=== PATIENT | male | born 1990 | race Caucasian/White ===

== ENCOUNTER 2020-07-22 08:55 | Emergency (ER) | payer OTHER, MEDICAID, SELFPAY ==
[2020-07-22] VITALS (8 sets, daily range): BP systolic 127–166; BP diastolic 74–98; PULSE 63–79; RESP 16; TEMP 37.4; O2SAT 96–99; BMI 32.5
--- NOTE | 2020-07-22 09:42 | ED.MALEGU ---
HPI - Male Genitourinary General Chief complaint: Urogenital-Male Stated complaint: stomach pain and testicular pain Time Seen by Provider: 07/22/20 09:06 Source: patient Mode of arrival: Ambulatory Limitations: no limitations History of Present Illness HPI Narrative: This is a 30-year-old male comes emergency department with complaint of testicular pain for the past 10 days. Patient states he has had some discomfort up into his lower abdomen in the suprapubic region. He states that pain he appreciates more on the left greater than the right. It has been intermittent but slowly increasing. He has not appreciated any significant swelling. He has had some pain when he urinates in the abdomen but does not appreciate any penile pain at the urethral opening. He is not appreciate any discharge, drainage or other rashes or skin changes. Patient has not had any new flank or back pain. Patient has noted recently with intercourse 3 days ago that the seminal fluid was a different consistency he did not appreciate any blood. He also states he just felt differently afterwards but does not really describe it as painful. Patient states he did have about 45 minutes and nausea that day several hours later. He states he is in a monogamous relationship with no suspicions for STI at this time. He has not had any additional nausea or emesis. He has not had any fevers or chills. He has chronic constipation. He has not noticed any bright red blood or melena. He has been having bowel movements recently. Patient states he has a history of ankylosing spondylitis. He is not on any regular medications. He states he has had tonsil and adenoids but no other prior surgeries. He has had possible epididymitis in the past he states he had serial ultrasounds, he did not think he took antibiotics but he states he was in his teens and is unsure of the exact diagnosis. Patient states that there was no interventions required. Patient denies any allergies to medications. Related Data Previous Rx's Medication Instructions Recorded doxycycline hyclate 100 mg PO BID #28 tab 07/22/20 Allergies Allergy/AdvReac Type Severity Reaction Status Date / Time No Known Drug Allergies Allergy Verified 07/22/20 09:02 Review of Systems Review of Systems ROS Unobtainable: All systems reviewed & are unremarkable except as noted in HPI and below Patient History Social History Smoking Status: Never smoker Smoking Status: Never smoker alcohol intake frequency: a few times a week Alcohol type: beer Substance Use Type: marijuana Exam Narrative Exam Narrative: GENERAL: Alert and oriented x three, well-nourished male in mild distress. HEENT: Head normocephalic, atraumatic, EOMI, pupils reactive, face symmetric, moist mucous membranes NECK: Supple, full range of motion CARDIOVASCULAR: Regular rate and rhythm without murmurs, rubs or gallops. RESPIRATORY: Breath sounds equal bilaterally, no wheezes rales or rhonchi. ABDOMEN: Soft, nontender. Normoactive bowel sounds all 4 quadrants. No guarding or rebound, rigidity, no mass : No CVA tenderness. Male: normal external examination, no penile discharge or lesions, testicles non-tender, cremasteric reflex intact, no inguinal hernias noted. EXTREMITIES: Normal range of motion, no clubbing or edema. Neurovascularly intact NEUROLOGICAL: Cranial nerves II through XII grossly intact. Moving all extremities SKIN: Warm, dry, no petechiae, no rashes or lesions. Initial Vital Signs Initial Vital Signs: Vital Signs Temperature 99.3 F 07/22/20 08:56 Pulse Rate 78 07/22/20 08:56 Respiratory Rate 16 07/22/20 08:56 Blood Pressure 166/98 H 07/22/20 08:56 Pulse Oximetry 96 07/22/20 08:56 Course Orders Ordered: Discontinued Medications Ceftriaxone Sodium (Ceftriaxone 1,000 Mg Vial) 500 mg IM NOW ONE Stop: 07/22/20 12:12 Last Admin: 07/22/20 12:38 Dose: 500 mg Documented by: YULISA Ibuprofen (Ibuprofen 400 Mg Tablet) 800 mg PO NOW ONE Stop: 07/22/20 10:17 Last Admin: 07/22/20 10:20 Dose: 800 mg Documented by: DAMON Lidocaine HCl (Lidocaine 1% 20 Ml) 2.1 ml INJ NOW ONE Stop: 07/22/20 12:12 Last Admin: 07/22/20 12:42 Dose: 2.1 ml Documented by: YULISA Vital Signs Vital signs: Vital Signs - 8 hr 07/22/20 11:44 07/22/20 11:45 07/22/20 13:10 Pulse Rate 67 63 79 Respiratory Rate 16 Blood Pressure 129/84 133/83 Pulse Oximetry 99 99 97 MDM - Male Genitourinary Lab Data Attestation: I reviewed the patient's lab results. Labs: Lab Results 07/22/20 Range/Units 07:47 Urine Color Yellow Urine Appearance Clear Urine pH 7.0 (4.5-8.0) Ur Specific [place] 1.010 (1.000-1.035) Urine Protein Negative (Negative) Urine Glucose (UA) Negative (Negative) g/dL Urine Ketones Negative (NEGATIVE) Urine Occult Blood Negative (Negative) Urine Nitrate Negative (Negative) Urine Bilirubin Negative (NEGATIVE) Urine Urobilinogen 0.2 (0.2) E.U./dL Ur Leukocyte Esterase Negative (NEGATIVE) Urine RBC None seen (0-5/HPF) Urine WBC None seen (0-5/HPF) Ur Squamous Epith Cells None seen (0-5/HPF) Urine Bacteria None seen (None) Ur Culture Indicated? Cult not indicated Urine Dip Bedside Urine Glucose Negative Bedside Urine Bilirubin - Negative Bedside Urine Ketone - Negative Urine Specific [place] 1.015 Bedside Urine Occult Blood - Negative Bedside Urine pH 6.0 Bedside Urine Protein - Negative Bedside Urine Urobilinogen - Negative Bedside Urine Nitrite - Negative Bedside Urine Leukocytes - Negative Esterase Imaging Data scrotum US: Radiologist's Impression: [address] [id number] ReportSigned Patient: Tyron JenningsMR#: [id number]: 1990Acct:[id number]/Sex: 30 / MDate of Service: 07/22/20Loc: EDAccession Number: [id number] Procedure: US scrotum Ordering Provider: Amaris Lea D.O. PROCEDURE: US SCROTUM INDICATIONS: INCREASING TESTICULAR PAIN RIGHT > LEFT TECHNIQUE: Real-time scanning was performed of the scrotum and testicles, with image documentation. Color and pulse Doppler interrogation was performed of both testicles. COMPARISON: None. FINDINGS: Right: Testicle is normal in size at 2.3 x 3.4 x 4.7 cm, and homogenous in echotexture. Epididymis is normal in overall size and morphology and is slightly heterogeneous.. No hydrocele or varicoceles. Overlying scrotal skin is normal in thickness. Left: Testicle is normal in size at 2.1 x 3.5 x 4.9 cm, and homogeneous in echotexture. Epididymis is normal in overall size and morphology, and is slightly heterogeneous. No hydrocele or varicoceles. Overlying scrotal skin is normal in thickness. There is a finding of several left epididymal head cysts, subcentimeter. Doppler: Color and pulse Doppler demonstrate minimally elevated but symmetric arterial flow in both testicles. IMPRESSION: Possible slight epididymal orchitis given slight elevated blood flow involving the testicles bilaterally and mild heterogeneity of the epididymis bilaterally. No testicular mass is found. Dictated by: Andres Suarez M.D. on 07/22/2020 at 11:36 Approved by: Andres Suarez M.D. on 07/22/2020 at 11:39 [facility] Narrative Medical decision making narrative: This is a 30-year-old male comes emergency department with complaint of bilateral testicular pain but left greater than right for approximately 10 days. Patient's urinalysis is negative. Ultrasound is suspicious for epididymitis/orchitis. Patient states he is monogamous. We discussed his urine was sent for GC testing but my suspicion is lower. He was treated with Rocephin and doxycycline here, patient was encouraged to follow up with his results as if they were positive he would not be contacted because he had the appropriate antibiotics but that his sexual partners would need to be treated. Patient was given referral to Urology as he has had at least 1 prior episode of similar symptoms in the past. Return precautions discussed. All questions were answered. Discharge Plan Departure Patient Disposition: Home Clinical Impression: Epididymitis Instructions: DI for Epididymitis Activity Restrictions/Additional Instructions: Follow up with your physician for recheck. If you do not have one a urology referral is included. Take antibiotics until they are completely gone. You have one additional urine lab pending, this takes several days/up to a week to result. You should follow up for these results. You may follow up with her physician or call for them. You have been treated today but if positive any additional partners would need to be treated. You may continue to take Tylenol up to a 1000 mg every 8 hours and or ibuprofen up to 800 mg every 8 hours as needed for pain. Please return for fevers, increasing abdominal, scrotal or back or flank pain, persistent vomiting, new redness, swelling or skin changes that are suspicious for infection, lightheadedness or passing out, persistent vomiting, difficulty with urination or other new or concerning symptoms. Prescriptions: New doxycycline hyclate 100 mg tablet 100 mg PO BID Qty: 28 RF: 0 Referrals: Ravindra Jacobson MD [Physician] - Stand Alone Forms: Work Release Note
--- NOTE | 2020-07-22 10:16 | DI.US.S_ITS ---
PROCEDURE: US SCROTUM INDICATIONS: INCREASING TESTICULAR PAIN RIGHT > LEFT TECHNIQUE: Real-time scanning was performed of the scrotum and testicles, with image documentation. Color and pulse Doppler interrogation was performed of both testicles. COMPARISON: None. FINDINGS: Right: Testicle is normal in size at 2.3 x 3.4 x 4.7 cm, and homogenous in echotexture. Epididymis is normal in overall size and morphology and is slightly heterogeneous.. No hydrocele or varicoceles. Overlying scrotal skin is normal in thickness. Left: Testicle is normal in size at 2.1 x 3.5 x 4.9 cm, and homogeneous in echotexture. Epididymis is normal in overall size and morphology, and is slightly heterogeneous. No hydrocele or varicoceles. Overlying scrotal skin is normal in thickness. There is a finding of several left epididymal head cysts, subcentimeter. Doppler: Color and pulse Doppler demonstrate minimally elevated but symmetric arterial flow in both testicles. IMPRESSION: Possible slight epididymal orchitis given slight elevated blood flow involving the testicles bilaterally and mild heterogeneity of the epididymis bilaterally. No testicular mass is found. Dictated by: Andres Suarez M.D. on 07/22/2020 at 11:36 Approved by: Andres Suarez M.D. on 07/22/2020 at 11:39
[2020-07-22] MEDS: IBUPROFEN 400 MG TABLET 800 MG PO (10:20)
[2020-07-22 10:27] LABS: Bacteria Urine None Seen; RBC Urine None Seen (0-5/HPF); WBC Urine None Seen (0-5/HPF)
[2020-07-22 10:28] LABS: Appearance Urine UA CLEAR; Bilirubin Urine UA NEGATIVE (NEGATIVE); Color Urine UA YELLOW; Glucose Urine UA NEGATIVE (Negative); Ketones Urine UA NEGATIVE (NEGATIVE); Leukocyte Esterase Urine UA NEGATIVE (NEGATIVE); Nitrite Urine UA NEGATIVE (Negative); Occult Blood Urine UA NEGATIVE (Negative); Protein Urine UA NEGATIVE (Negative); Urobilinogen Urine UA 0.2 E.U./dL (0.2)
[2020-07-22 10:48] LABS: Squamous Epithelial Cell Urine None Seen (0-5/HPF)
[2020-07-22 10:49] LABS: Culture Indicated Urine Cult Not Indicated
[2020-07-22] MEDS: cefTRIAXone 1,000 MG VIAL 500 MG IM (12:38)
[2020-07-22] MEDS: LIDOCAINE 1% 20 ML 2.1 ML INJ (12:42)
[2020-07-23 22:02] LABS: Chlamydia trachomatis NAA Negative (Negative); Neisseria gonorrhoeae NAA Negative (Negative)
== END 2020-07-22 13:10 | disposition home or self-care (01) ==
PROVIDERS: Emergency Provider Emergency Medicine
DX: N45.1 Epididymitis (principal)
CPT/HCPCS: 76870; 81001; 81003; 87491; 87591; 96372; 99284; J0696

== ENCOUNTER → 2021-06-04 14:56 | Outpatient (CLI) | payer OTHER, MEDICAID, SELFPAY ==
[2021-06-04 15:30] LABS: COVID19 -Nasal RAPID Negative (Negative)
== END ==
PROVIDERS: PCP Family Medicine; Visit Provider Nurse Practitioner Family
DX: Z20.822 Contact with and (suspected) exposure to COVID-19 (principal)
CPT/HCPCS: 87635

== ENCOUNTER 2021-07-21 14:30 | Outpatient (RCR) | payer OTHER, MEDICAID, SELFPAY ==
--- NOTE | 2020-10-06 11:59 | PT.OIE ---
Current Diagnoses Impingement syndrome of right shoulder (10/06/20) Strain of muscle(s) and tendon(s) of the rotator cuff of right shoulder, subsequent encounter (10/06/20) Visit Care Team Role Provider Type Ray Stover DO Primary Care Provider Non-Staff Specialty: Medical Address: [address], [address] Fax: Email: Tylor Aguayo MD Attending Provider Non-Staff Referring Provider Specialty: Physical Medicine and Rehab Address: [facility] [place], [address] Email: Physical Therapy Initial Evaluation PT-OP-A Visit Information Start: 10/06/20 07:42 Freq: Status: Active Protocol: Document 10/06/20 09:00 AMB (Rec: 10/06/20 15:59 AMB [email or web address]) Out-Patient Physical Therapy Visit Information Visit Information Visit Type Initial Evaluation Visit Start Time 09:00 Visit Stop Time 09:45 Total Visit Minutes 45 Visit Number 1 PT-OP-B Current Condition Start: 10/06/20 07:42 Freq: Status: Active Protocol: Document 10/06/20 09:00 AMB (Rec: 10/06/20 09:15 AMB [id number]) Current Condition History of Current Condition Onset Date 08/15/20 Current Complaints R shoulder pain History of Current Condition 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 Had a MRI at [facility], Per pt report showed bicep tendon tear and labrum tear per pt report. Considering surgery. Does have ankylosing spondylitis. Not currently working because has a 10# lifting restriction and they don' t have work that can accomodate that. R shoulder stiffness currently. Difficulty sleeping. 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 Treatment Goals Patient/Caregiver Goals Reduce R shoulder pain returnt to work. Prior Functional Status Baseline Function- ADL's Independent Baseline Function- Mobility Independent Current Functional Impairments (Reported) Functional Limitations- ADL's Difficult lifting arm, lifting objects even of light weight (groceries) Personal Factors Other Personal Factors That May Effect Ankylosing spondylitis Therapy/Recovery PT-OP-C Subjective Start: 10/06/20 07:42 Freq: Status: Active Protocol: Document 10/06/20 09:00 AMB (Rec: 10/07/20 08:58 AMB [email or web address]) Patient Questionnaires Quick Dash- Upper Extremity Quick Dash UE Score 27 Quick Dash UE Impairment 20 to 39% Impaired (Score 20- 39) OP-PT Pain Assessment Comments Pain Comments 6/10 pain anterior and posterior shoulder PT-OP-F Manual Assessment Start: 10/06/20 07:42 Freq: Status: Active Protocol: Document 10/06/20 09:00 AMB (Rec: 10/07/20 08:58 AMB [email or web address]) Manual Assessments Other Manual Assessments Other Manual Assessments Tenderness at acromion, attachment of long head of biceps, and throughout scapular muscles and upper traps. PT-OP-J Posture/Palpation/Skin Start: 10/06/20 07:42 Freq: Status: Active Protocol: Document 10/06/20 09:00 AMB (Rec: 10/07/20 08:58 AMB [email or web address]) Posture Evaluation Comments Posture Comments Flat lumbar and thoracic spine PT-OP-K Range of Motion Start: 10/06/20 07:42 Freq: Status: Active Protocol: Document 10/06/20 09:00 AMB (Rec: 10/07/20 08:58 AMB [email or web address]) Shoulder Goniometric Range of Motion Shoulder Left Active Testing Position Sitting Flexion 165 Abduction 180 Internal Rotation Behind Back (text) T8 Comments T3 external rotation behind back Right Active Testing Position Sitting Flexion 135 Abduction 165 Internal Rotation Behind Back (text) L5 Comments C7 external rotation behind back PT-OP-L Special Tests Start: 10/06/20 07:42 Freq: Status: Active Protocol: Document 10/06/20 09:00 AMB (Rec: 10/07/20 08:58 AMB [email or web address]) Special Tests Shoulder Special Tests Neer Impingement Test Results - [place] Codey Impingement Test Results + PT-OP-M Strength Start: 10/06/20 07:42 Freq: Status: Active Protocol: Document 10/06/20 09:00 AMB (Rec: 10/07/20 08:58 AMB [email or web address]) Shoulder Strength Shoulder Manual Muscle Testing Left Flexion 5 Normal Abduction (C5) 5 Normal External Rotation 4+ Good+ Internal Rotation 4+ Good+ Right Flexion 4- Good- Abduction (C5) 4- Good- External Rotation 3+ Fair+ Internal Rotation 3+ Fair+ Elbow/Forearm Strength Elbow and Forearm Manual Muscle Testing Right Flexion (C6) 4 Good Comments pain with resisted elbow flexion PT-OP-Q Treatments Start: 10/06/20 07:42 Freq: Status: Active Protocol: Document 10/06/20 09:00 AMB (Rec: 10/08/20 11:58 AMB [email or web address]) Therapeutic Exercises Standing Exercises 1 Standing Exercise Name pendulum Comments with 3 pound weight PT-OP-T Assessment and Plan Start: 10/06/20 07:42 Freq: Status: Active Protocol: Document 10/06/20 09:00 AMB (Rec: 10/08/20 11:58 AMB [email or web address]) Physical Therapy Assessment Rehab Potential Rehabilitation Potential Good Evaluation Complexity Number of Personal Factors/Comorbidities 1-2 Number of Body Systems Impaired 4 or More Clinical Presentation at Evaluation Evolving Impairments Impairments Activity Tolerance,Functional Activities,Pain,ROM,Strength Goals Three Impairment Pain Short Term Goal (STG) Flynn will improve his shoulder strength and ROM so that he can wash his back without shoulder pain. STG Duration 4 weeks Longterm Goal (LTG) Flynn will lift his arm over head without pain so that he can return to work without shoulder pain. LTG Duration 8 weeks Two Impairment Strength Short Term Goal (STG) Flynn will improve his R shoulder strength to 4/5 in all planes. STG Duration 4 weeks People Greeter Goal (LTG) Flynn will lift 10# to shoulder height without an increase in shoulder pain. LTG Duration 6 weeks One Impairment ROM Short Term Goal (STG) Flynn will improve his shoulder flexion (active) to 160 degrees. STG Duration 4 weeks Assessment Summary Assessment Flynn attends physical therapy with a current lifting restriction of 10# per his report. He is not working as his employer does not have light duty and is considering surgery for his right shoulder pain. He does have restricted ROM into flexion, ER, and IR and weakness especially with ER and abduction. 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 Physical Therapy Plan Frequency and Duration Frequency of Treatment 2x/Week Duration of Treatment 6 weeks Plan of Care Start Date 10/06/20 Plan of Care End Date 08/02/21 Therapeutic Interventions Therapeutic Interventions Home Exercise Program,Joint Mobilizations,Manual Therapy, Neuromuscular Re-education, Self-Care/Home Management, Therapeutic Activities, Therapeutic Exercises Modalities Cold Pack/Ice Massage,Electric Stimulation,Hot Packs Next Visit Focus/Plan Next Note Type Treatment Note Next Visit Plan Begin HEP for gentle RTC/ biceps strengthening, manual therapy to improve ROM as needed
--- NOTE | 2020-10-06 11:59 | PT.OPPOC ---
Physical, Occupational & Speech Therapy At [facility] Current Diagnoses Impingement syndrome of right shoulder (10/06/20) Strain of muscle(s) and tendon(s) of the rotator cuff of right shoulder, subsequent encounter (10/06/20) Visit Care Team Role Provider Type Ray Stover DO Primary Care Provider Non-Staff Specialty: Medical Address: [address] [place] [address], [place], [address] Fax: Email: Tylor Aguayo MD Attending Provider Non-Staff Referring Provider Specialty: Physical Medicine and Rehab Address: [facility] [address] [facility], [place], [address] Email: Plan Of Care PT-OP-T Assessment and Plan Start: 10/06/20 07:42 Freq: Status: Active Protocol: Document 10/06/20 09:00 AMB (Rec: 10/08/20 11:58 AMB [email or web address]) Physical Therapy Assessment Rehab Potential Rehabilitation Potential Good Evaluation Complexity Number of Personal Factors/Comorbidities 1-2 Number of Body Systems Impaired 4 or More Clinical Presentation at Evaluation Evolving Impairments Impairments Activity Tolerance,Functional Activities,Pain,ROM,Strength Goals Three Impairment Pain Short Term Goal (STG) Flynn will improve his shoulder strength and ROM so that he can wash his back without shoulder pain. STG Duration 4 weeks Professional Poker Player Goal (LTG) Flynn will lift his arm over head without pain so that he can return to work without shoulder pain. LTG Duration 8 weeks Two Impairment Strength Short Term Goal (STG) Flynn will improve his R shoulder strength to 4/5 in all planes. STG Duration 4 weeks Professional Poker Player Goal (LTG) Flynn will lift 10# to shoulder height without an increase in shoulder pain. LTG Duration 6 weeks One Impairment ROM Short Term Goal (STG) Flynn will improve his shoulder flexion (active) to 160 degrees. STG Duration 4 weeks Assessment Summary Assessment Flynn attends physical therapy with a current lifting restriction of 10# per his report. He is not working as his employer does not have light duty and is considering surgery for his right shoulder pain. He does have restricted ROM into flexion, ER, and IR and weakness especially with ER and abduction. 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 Physical Therapy Plan Frequency and Duration Frequency of Treatment 2x/Week Duration of Treatment 6 weeks Plan of Care Start Date 10/06/20 Plan of Care End Date 11/17/20 Therapeutic Interventions Therapeutic Interventions Home Exercise Program,Joint Mobilizations,Manual Therapy, Neuromuscular Re-education, Self-Care/Home Management, Therapeutic Activities, Therapeutic Exercises Modalities Cold Pack/Ice Massage,Electric Stimulation,Hot Packs Next Visit Focus/Plan Next Note Type Treatment Note Next Visit Plan Begin HEP for gentle RTC/ biceps strengthening, manual therapy to improve ROM as needed Plan of Care Dates Plan of Care Start Date 10/06/20 Plan of Care End Date 11/17/20 Electronically Signed by: Jaz Claire, PT 10/08/20 [id number] Please Sign and Return: I have reviewed this Plan of Care and certify that the skilled therapy services above are required to meet the patient?s needs. Physician Signature Date Printed Name and Credentials Clinical Instructor Signature Printed Name and Credentials
--- NOTE | 2020-10-09 16:18 | PT.OTN ---
Current Diagnoses Impingement syndrome of right shoulder (10/09/20) Strain of muscle(s) and tendon(s) of the rotator cuff of right shoulder, subsequent encounter (10/09/20) Physical Therapy Treatment Note PT-OP-A Visit Information Start: 10/06/20 07:42 Freq: Status: Active Protocol: Document 10/09/20 12:45 AMB (Rec: 10/09/20 13:24 AMB [id number]) Out-Patient Physical Therapy Visit Information Visit Information Visit Type Treatment Note Visit Start Time 12:45 Visit Stop Time 13:30 Total Visit Minutes 45 Visit Number 2 PT-OP-B Current Condition Start: 10/06/20 07:42 Freq: Status: Active Protocol: Document 10/06/20 09:00 AMB (Rec: 10/06/20 09:15 AMB [id number]) Current Condition History of Current Condition Onset Date 08/15/20 Current Complaints R shoulder pain History of Current Condition 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 Had a MRI at [facility], Per pt report showed bicep tendon tear and labrum tear per pt report. Considering surgery. Does have ankylosing spondylitis. Not currently working because has a 10# lifting restriction and they don' t have work that can accomodate that. R shoulder stiffness currently. Difficulty sleeping. 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 Treatment Goals Patient/Caregiver Goals Reduce R shoulder pain returnt to work. Prior Functional Status Baseline Function- ADL's Independent Baseline Function- Mobility Independent Current Functional Impairments (Reported) Functional Limitations- ADL's Difficult lifting arm, lifting objects even of light weight (groceries) Personal Factors Other Personal Factors That May Effect Ankylosing spondylitis Therapy/Recovery PT-OP-C Subjective Start: 10/06/20 07:42 Freq: Status: Active Protocol: Document 10/09/20 12:45 AMB (Rec: 10/09/20 13:24 AMB [id number]) OP-PT Subjective Patient Comments Patient Comments Pt is noticing a bit of soreness in the shoulder today , has been working around the house just light housework but feeling it a bit. Has been doing HEP. PT-OP-F Manual Assessment Start: 10/06/20 07:42 Freq: Status: Active Protocol: Document 10/06/20 09:00 AMB (Rec: 10/07/20 08:58 AMB [email or web address]) Manual Assessments Other Manual Assessments Other Manual Assessments Tenderness at acromion, attachment of long head of biceps, and throughout scapular muscles and upper traps. PT-OP-J Posture/Palpation/Skin Start: 10/06/20 07:42 Freq: Status: Active Protocol: Document 10/06/20 09:00 AMB (Rec: 10/07/20 08:58 AMB [email or web address]) Posture Evaluation Comments Posture Comments Flat lumbar and thoracic spine PT-OP-K Range of Motion Start: 10/06/20 07:42 Freq: Status: Active Protocol: Document 10/06/20 09:00 AMB (Rec: 10/07/20 08:58 AMB [email or web address]) Shoulder Goniometric Range of Motion Shoulder Left Active Testing Position Sitting Flexion 165 Abduction 180 Internal Rotation Behind Back (text) T8 Comments T3 external rotation behind back Right Active Testing Position Sitting Flexion 135 Abduction 165 Internal Rotation Behind Back (text) L5 Comments C7 external rotation behind back PT-OP-L Special Tests Start: 10/06/20 07:42 Freq: Status: Active Protocol: Document 10/06/20 09:00 AMB (Rec: 10/07/20 08:58 AMB [email or web address]) Special Tests Shoulder Special Tests Neer Impingement Test Results - Mills Codey Impingement Test Results + PT-OP-M Strength Start: 10/06/20 07:42 Freq: Status: Active Protocol: Document 10/06/20 09:00 AMB (Rec: 10/07/20 08:58 AMB [email or web address]) Shoulder Strength Shoulder Manual Muscle Testing Left Flexion 5 Normal Abduction (C5) 5 Normal External Rotation 4+ Good+ Internal Rotation 4+ Good+ Right Flexion 4- Good- Abduction (C5) 4- Good- External Rotation 3+ Fair+ Internal Rotation 3+ Fair+ Elbow/Forearm Strength Elbow and Forearm Manual Muscle Testing Right Flexion (C6) 4 Good Comments pain with resisted elbow flexion PT-OP-Q Treatments Start: 10/06/20 07:42 Freq: Status: Active Protocol: Document 10/09/20 12:45 AMB (Rec: 10/09/20 13:24 AMB [id number]) Cardio Equipment Upper Body Ergometer (UBE) Duration (Minutes) 5 Other fwd only Therapeutic Exercises Standing Exercises 5 Standing Exercise Name shoulder extension Reps/Minutes increased pain Comments #2 t band 4 Standing Exercise Name rows- t band Reps/Minutes 2x10 Comments #2 3 Standing Exercise Name UT stretch Side bilateral Reps/Minutes 30x2 2 Standing Exercise Name serratus punch AROM Side right Reps/Minutes 2x12. 1 Standing Exercise Name pendulum Side right Comments with 3 pound weight Manual Therapy Treatment Soft Tissue Mobilization 2 Body Location PROM all planes Comments then alternating isometrics at 90 degrees flexion 1 Body Location UT/ levator scap/ pec MFR Mobilization Type Myofascial Release Intensity/Depth Moderate Body Position Hooklying PT-OP-T Assessment and Plan Start: 10/06/20 07:42 Freq: Status: Active Protocol: Document 10/09/20 12:45 AMB (Rec: 10/09/20 13:24 AMB [id number]) Physical Therapy Assessment Assessment Summary Assessment Flynn tolerated exercises well, but continues to have pain at end range. Good ROM after PT and did feel looser. After checking in how pt does this evening tomorrow will prescribe more of a HEP. Current HEP- pendulums and UT stretch. Physical Therapy Plan Next Visit Focus/Plan Next Note Type Treatment Note Next Visit Plan Begin HEP for gentle RTC/ biceps strengthening, manual therapy to improve ROM as needed
--- NOTE | 2020-10-13 15:16 | PT.OTN ---
Current Diagnoses Impingement syndrome of right shoulder (10/13/20) Strain of muscle(s) and tendon(s) of the rotator cuff of right shoulder, subsequent encounter (10/13/20) Physical Therapy Treatment Note PT-OP-A Visit Information Start: 10/06/20 07:42 Freq: Status: Active Protocol: Document 10/13/20 14:22 AMB (Rec: 10/13/20 15:07 AMB [id number]) Out-Patient Physical Therapy Visit Information Visit Information Visit Type Treatment Note Visit Start Time 14:15 Visit Stop Time 15:00 Total Visit Minutes 45 Visit Number 3 PT-OP-B Current Condition Start: 10/06/20 07:42 Freq: Status: Active Protocol: Document 10/06/20 09:00 AMB (Rec: 10/06/20 09:15 AMB [id number]) Current Condition History of Current Condition Onset Date 08/15/20 Current Complaints R shoulder pain History of Current Condition 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 Had a MRI at [facility], Per pt report showed bicep tendon tear and labrum tear per pt report. Considering surgery. Does have ankylosing spondylitis. Not currently working because has a 10# lifting restriction and they don' t have work that can accomodate that. R shoulder stiffness currently. Difficulty sleeping. 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 Treatment Goals Patient/Caregiver Goals Reduce R shoulder pain returnt to work. Prior Functional Status Baseline Function- ADL's Independent Baseline Function- Mobility Independent Current Functional Impairments (Reported) Functional Limitations- ADL's Difficult lifting arm, lifting objects even of light weight (groceries) Personal Factors Other Personal Factors That May Effect Ankylosing spondylitis Therapy/Recovery PT-OP-C Subjective Start: 10/06/20 07:42 Freq: Status: Active Protocol: Document 10/13/20 14:22 AMB (Rec: 10/13/20 15:07 AMB [id number]) OP-PT Subjective Patient Comments Patient Comments Pt was a little sore after last visit for that evening and the next day. PT-OP-F Manual Assessment Start: 10/06/20 07:42 Freq: Status: Active Protocol: Document 10/06/20 09:00 AMB (Rec: 10/07/20 08:58 AMB [email or web address]) Manual Assessments Other Manual Assessments Other Manual Assessments Tenderness at acromion, attachment of long head of biceps, and throughout scapular muscles and upper traps. PT-OP-J Posture/Palpation/Skin Start: 10/06/20 07:42 Freq: Status: Active Protocol: Document 10/06/20 09:00 AMB (Rec: 10/07/20 08:58 AMB [email or web address]) Posture Evaluation Comments Posture Comments Flat lumbar and thoracic spine PT-OP-K Range of Motion Start: 10/06/20 07:42 Freq: Status: Active Protocol: Document 10/06/20 09:00 AMB (Rec: 10/07/20 08:58 AMB [email or web address]) Shoulder Goniometric Range of Motion Shoulder Left Active Testing Position Sitting Flexion 165 Abduction 180 Internal Rotation Behind Back (text) T8 Comments T3 external rotation behind back Right Active Testing Position Sitting Flexion 135 Abduction 165 Internal Rotation Behind Back (text) L5 Comments C7 external rotation behind back PT-OP-L Special Tests Start: 10/06/20 07:42 Freq: Status: Active Protocol: Document 10/06/20 09:00 AMB (Rec: 10/07/20 08:58 AMB [email or web address]) Special Tests Shoulder Special Tests Neer Impingement Test Results - [place] Codey Impingement Test Results + PT-OP-M Strength Start: 10/06/20 07:42 Freq: Status: Active Protocol: Document 10/06/20 09:00 AMB (Rec: 10/07/20 08:58 AMB [email or web address]) Shoulder Strength Shoulder Manual Muscle Testing Left Flexion 5 Normal Abduction (C5) 5 Normal External Rotation 4+ Good+ Internal Rotation 4+ Good+ Right Flexion 4- Good- Abduction (C5) 4- Good- External Rotation 3+ Fair+ Internal Rotation 3+ Fair+ Elbow/Forearm Strength Elbow and Forearm Manual Muscle Testing Right Flexion (C6) 4 Good Comments pain with resisted elbow flexion PT-OP-Q Treatments Start: 10/06/20 07:42 Freq: Status: Active Protocol: Document 10/13/20 14:22 AMB (Rec: 10/13/20 15:07 AMB [id number]) Cardio Equipment Upper Body Ergometer (UBE) Duration (Minutes) 5 Other fwd/backward Therapeutic Exercises Standing Exercises 7 Standing Exercise Name IR t band Side right Resistance #1 t band Reps/Minutes 2x8 Comments HEP 6 Standing Exercise Name ER- t band Side right Resistance #1 t band Reps/Minutes 2x8 Comments HEP 5 Standing Exercise Name shoulder extension Reps/Minutes increased pain Comments #2 t band 4 Standing Exercise Name rows- t band Reps/Minutes 2x10 Comments #3 t band 3 Standing Exercise Name UT stretch Side bilateral Reps/Minutes 30x2 2 Standing Exercise Name serratus punch AROM Side right Reps/Minutes 2x12. 1 Standing Exercise Name pendulum Side right Comments with 3 pound weight Manual Therapy Treatment Soft Tissue Mobilization 2 Body Location PROM all planes Comments then alternating isometrics at 90 degrees flexion 1 Body Location subscap/pec MFR Mobilization Type Myofascial Release Intensity/Depth Moderate Body Position Hooklying Taping 1 Body Location I and Y for GH and scapular stabilization Type of Tape Kinesio Tape PT-OP-T Assessment and Plan Start: 10/06/20 07:42 Freq: Status: Active Protocol: Document 10/13/20 14:15 AMB (Rec: 10/13/20 15:16 AMB [email or web address]) Physical Therapy Assessment Goals Three Impairment Pain Short Term Goal (STG) Flynn will improve his shoulder strength and ROM so that he can wash his back without shoulder pain. STG Duration 4 weeks Tourist Adviser Goal (LTG) Flynn will lift his arm over head without pain so that he can return to work without shoulder pain. LTG Duration 8 weeks Two Impairment Strength Short Term Goal (STG) Flynn will improve his R shoulder strength to 4/5 in all planes. STG Duration 4 weeks Tourist Adviser Goal (LTG) Flynn will lift 10# to shoulder height without an increase in shoulder pain. LTG Duration 6 weeks One Impairment ROM Short Term Goal (STG) Flynn will improve his shoulder flexion (active) to 160 degrees. STG Duration 4 weeks Assessment Summary Assessment Flynn is having scapular tension so worked on that with manual therapy and taping to stabilize GH joint. Would encourage light strengthening and did give t bands today. Physical Therapy Plan Frequency and Duration Frequency of Treatment 2x/Week Duration of Treatment 6 weeks Plan of Care Start Date 10/06/20 Plan of Care End Date 11/17/20 Therapeutic Interventions Therapeutic Interventions Home Exercise Program,Joint Mobilizations,Manual Therapy, Neuromuscular Re-education, Self-Care/Home Management, Therapeutic Activities, Therapeutic Exercises Modalities Cold Pack/Ice Massage,Electric Stimulation,Hot Packs Next Visit Focus/Plan Next Note Type Treatment Note Next Visit Plan Begin HEP for gentle RTC/ biceps strengthening, manual therapy to improve ROM as needed
--- NOTE | 2020-10-16 15:14 | PT.OTN ---
Current Diagnoses Impingement syndrome of right shoulder (10/16/20) Strain of muscle(s) and tendon(s) of the rotator cuff of right shoulder, subsequent encounter (10/16/20) Physical Therapy Treatment Note PT-OP-A Visit Information Start: 10/06/20 07:42 Freq: Status: Active Protocol: Document 10/16/20 14:15 AMB (Rec: 10/16/20 14:39 AMB [id number]) Out-Patient Physical Therapy Visit Information Visit Information Visit Type Treatment Note Visit Start Time 14:15 Visit Stop Time 15:00 Total Visit Minutes 45 Visit Number 4 PT-OP-B Current Condition Start: 10/06/20 07:42 Freq: Status: Active Protocol: Document 10/06/20 09:00 AMB (Rec: 10/06/20 09:15 AMB [id number]) Current Condition History of Current Condition Onset Date 08/15/20 Current Complaints R shoulder pain History of Current Condition 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 Had a MRI at [facility], Per pt report showed bicep tendon tear and labrum tear per pt report. Considering surgery. Does have ankylosing spondylitis. Not currently working because has a 10# lifting restriction and they don' t have work that can accomodate that. R shoulder stiffness currently. Difficulty sleeping. 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 Treatment Goals Patient/Caregiver Goals Reduce R shoulder pain returnt to work. Prior Functional Status Baseline Function- ADL's Independent Baseline Function- Mobility Independent Current Functional Impairments (Reported) Functional Limitations- ADL's Difficult lifting arm, lifting objects even of light weight (groceries) Personal Factors Other Personal Factors That May Effect Ankylosing spondylitis Therapy/Recovery PT-OP-C Subjective Start: 10/06/20 07:42 Freq: Status: Active Protocol: Document 10/16/20 14:15 AMB (Rec: 10/16/20 14:39 AMB [id number]) OP-PT Subjective Patient Comments Patient Comments Pt reports increased neck pain this last week, sore after last visit in the shoulder. PT-OP-F Manual Assessment Start: 10/06/20 07:42 Freq: Status: Active Protocol: Document 10/06/20 09:00 AMB (Rec: 10/07/20 08:58 AMB [email or web address]) Manual Assessments Other Manual Assessments Other Manual Assessments Tenderness at acromion, attachment of long head of biceps, and throughout scapular muscles and upper traps. PT-OP-J Posture/Palpation/Skin Start: 10/06/20 07:42 Freq: Status: Active Protocol: Document 10/06/20 09:00 AMB (Rec: 10/07/20 08:58 AMB [email or web address]) Posture Evaluation Comments Posture Comments Flat lumbar and thoracic spine PT-OP-K Range of Motion Start: 10/06/20 07:42 Freq: Status: Active Protocol: Document 10/06/20 09:00 AMB (Rec: 10/07/20 08:58 AMB [email or web address]) Shoulder Goniometric Range of Motion Shoulder Left Active Testing Position Sitting Flexion 165 Abduction 180 Internal Rotation Behind Back (text) T8 Comments T3 external rotation behind back Right Active Testing Position Sitting Flexion 135 Abduction 165 Internal Rotation Behind Back (text) L5 Comments C7 external rotation behind back PT-OP-L Special Tests Start: 10/06/20 07:42 Freq: Status: Active Protocol: Document 10/06/20 09:00 AMB (Rec: 10/07/20 08:58 AMB [email or web address]) Special Tests Shoulder Special Tests Neer Impingement Test Results - Mills Codey Impingement Test Results + PT-OP-M Strength Start: 10/06/20 07:42 Freq: Status: Active Protocol: Document 10/06/20 09:00 AMB (Rec: 10/07/20 08:58 AMB [email or web address]) Shoulder Strength Shoulder Manual Muscle Testing Left Flexion 5 Normal Abduction (C5) 5 Normal External Rotation 4+ Good+ Internal Rotation 4+ Good+ Right Flexion 4- Good- Abduction (C5) 4- Good- External Rotation 3+ Fair+ Internal Rotation 3+ Fair+ Elbow/Forearm Strength Elbow and Forearm Manual Muscle Testing Right Flexion (C6) 4 Good Comments pain with resisted elbow flexion PT-OP-Q Treatments Start: 10/06/20 07:42 Freq: Status: Active Protocol: Document 10/16/20 15:06 AMB (Rec: 10/16/20 15:14 AMB [id number]) Cardio Equipment Upper Body Ergometer (UBE) Duration (Minutes) 5 Other fwd/backward Therapeutic Exercises Supine Exercises 2 Supine Exercise Name flexion AROM Reps/Minutes 10 Comments partial range approx 120 1 Supine Exercise Name active pec stretch Reps/Minutes 2x10 Standing Exercises 8 Standing Exercise Name chin tuck Reps/Minutes 10 Comments HEP 3 Standing Exercise Name UT stretch Side bilateral Reps/Minutes 30x2 2 Standing Exercise Name serratus punch AROM Side right Reps/Minutes 2x12. Comments on foam roll Manual Therapy Treatment Soft Tissue Mobilization 1 Body Location subscap/pec MFR/ occipitals Mobilization Type Myofascial Release Intensity/Depth Moderate Body Position Hooklying Comments instruction in theracane PT-OP-T Assessment and Plan Start: 10/06/20 07:42 Freq: Status: Active Protocol: Document 10/16/20 14:15 AMB (Rec: 10/16/20 14:39 AMB [id number]) Physical Therapy Assessment Assessment Summary Assessment Flynn is having increased scapula neck tension, especially when waking up in the morning. Did like the theracane so encouraged purchase of one, or to try tennis ball against wall for scapular muscles. Physical Therapy Plan Next Visit Focus/Plan Next Note Type Treatment Note Next Visit Plan Begin HEP for gentle RTC/ biceps strengthening, manual therapy to improve ROM as needed
--- NOTE | 2020-10-21 15:06 | PT.OTN ---
Current Diagnoses Impingement syndrome of right shoulder (10/21/20) Strain of muscle(s) and tendon(s) of the rotator cuff of right shoulder, subsequent encounter (10/21/20) Physical Therapy Treatment Note PT-OP-A Visit Information Start: 10/06/20 07:42 Freq: Status: Active Protocol: Document 10/21/20 14:15 AMB (Rec: 10/21/20 15:04 AMB [id number]) Out-Patient Physical Therapy Visit Information Visit Information Visit Type Treatment Note Visit Start Time 14:15 Visit Stop Time 15:00 Total Visit Minutes 45 Visit Number 5 PT-OP-B Current Condition Start: 10/06/20 07:42 Freq: Status: Active Protocol: Document 10/06/20 09:00 AMB (Rec: 10/06/20 09:15 AMB [id number]) Current Condition History of Current Condition Onset Date 08/15/20 Current Complaints R shoulder pain History of Current Condition 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 Had a MRI at [facility], Per pt report showed bicep tendon tear and labrum tear per pt report. Considering surgery. Does have ankylosing spondylitis. Not currently working because has a 10# lifting restriction and they don' t have work that can accomodate that. R shoulder stiffness currently. Difficulty sleeping. 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 Treatment Goals Patient/Caregiver Goals Reduce R shoulder pain returnt to work. Prior Functional Status Baseline Function- ADL's Independent Baseline Function- Mobility Independent Current Functional Impairments (Reported) Functional Limitations- ADL's Difficult lifting arm, lifting objects even of light weight (groceries) Personal Factors Other Personal Factors That May Effect Ankylosing spondylitis Therapy/Recovery PT-OP-C Subjective Start: 10/06/20 07:42 Freq: Status: Active Protocol: Document 10/21/20 14:15 AMB (Rec: 10/21/20 15:04 AMB [id number]) OP-PT Subjective Patient Comments Patient Comments Pt continues to report increased neck pain. Was sore for about a day after last visit of PT. PT-OP-F Manual Assessment Start: 10/06/20 07:42 Freq: Status: Active Protocol: Document 10/06/20 09:00 AMB (Rec: 10/07/20 08:58 AMB [email or web address]) Manual Assessments Other Manual Assessments Other Manual Assessments Tenderness at acromion, attachment of long head of biceps, and throughout scapular muscles and upper traps. PT-OP-J Posture/Palpation/Skin Start: 10/06/20 07:42 Freq: Status: Active Protocol: Document 10/06/20 09:00 AMB (Rec: 10/07/20 08:58 AMB [email or web address]) Posture Evaluation Comments Posture Comments Flat lumbar and thoracic spine PT-OP-K Range of Motion Start: 10/06/20 07:42 Freq: Status: Active Protocol: Document 10/06/20 09:00 AMB (Rec: 10/07/20 08:58 AMB [email or web address]) Shoulder Goniometric Range of Motion Shoulder Left Active Testing Position Sitting Flexion 165 Abduction 180 Internal Rotation Behind Back (text) T8 Comments T3 external rotation behind back Right Active Testing Position Sitting Flexion 135 Abduction 165 Internal Rotation Behind Back (text) L5 Comments C7 external rotation behind back PT-OP-L Special Tests Start: 10/06/20 07:42 Freq: Status: Active Protocol: Document 10/06/20 09:00 AMB (Rec: 10/07/20 08:58 AMB [email or web address]) Special Tests Shoulder Special Tests Neer Impingement Test Results - Mills Codey Impingement Test Results + PT-OP-M Strength Start: 10/06/20 07:42 Freq: Status: Active Protocol: Document 10/06/20 09:00 AMB (Rec: 10/07/20 08:58 AMB [email or web address]) Shoulder Strength Shoulder Manual Muscle Testing Left Flexion 5 Normal Abduction (C5) 5 Normal External Rotation 4+ Good+ Internal Rotation 4+ Good+ Right Flexion 4- Good- Abduction (C5) 4- Good- External Rotation 3+ Fair+ Internal Rotation 3+ Fair+ Elbow/Forearm Strength Elbow and Forearm Manual Muscle Testing Right Flexion (C6) 4 Good Comments pain with resisted elbow flexion PT-OP-Q Treatments Start: 10/06/20 07:42 Freq: Status: Active Protocol: Document 10/21/20 14:15 AMB (Rec: 10/21/20 15:04 AMB [id number]) Cardio Equipment Upper Body Ergometer (UBE) Duration (Minutes) 5 Other fwd/backward Therapeutic Exercises Supine Exercises 1 Supine Exercise Name active pec stretch Reps/Minutes 2x10 Standing Exercises 8 Standing Exercise Name chin tuck Reps/Minutes 10 Comments HEP 3 Standing Exercise Name UT stretch Side bilateral Reps/Minutes 30x2 2 Standing Exercise Name serratus punch AROM Side right Reps/Minutes 2x12. Comments on foam roll Manual Therapy Treatment Soft Tissue Mobilization 1 Body Location subscap/pec MFR/ occipitals Mobilization Type Myofascial Release Intensity/Depth Moderate Body Position Hooklying Comments instruction in theracane Taping 1 Body Location I and Y for GH and scapular stabilization Type of Tape Kinesio Tape PT-OP-T Assessment and Plan Start: 10/06/20 07:42 Freq: Status: Active Protocol: Document 10/21/20 14:15 AMB (Rec: 10/21/20 15:04 AMB [id number]) Physical Therapy Assessment Goals Three Impairment Pain Short Term Goal (STG) Flynn will improve his shoulder strength and ROM so that he can wash his back without shoulder pain. STG Duration 4 weeks Detention Goal (LTG) Flynn will lift his arm over head without pain so that he can return to work without shoulder pain. LTG Duration 8 weeks Two Impairment Strength Short Term Goal (STG) Flynn will improve his R shoulder strength to 4/5 in all planes. STG Duration 4 weeks Detention Goal (LTG) Flynn will lift 10# to shoulder height without an increase in shoulder pain. LTG Duration 6 weeks One Impairment ROM Short Term Goal (STG) Flynn will improve his shoulder flexion (active) to 160 degrees. STG Duration 4 weeks Assessment Summary Assessment Educated not to force neck stretching today. Did not progress HEP due to increased pain. Physical Therapy Plan Frequency and Duration Frequency of Treatment 2x/Week Duration of Treatment 6 weeks Plan of Care Start Date 10/06/20 Plan of Care End Date 11/17/20 Therapeutic Interventions Therapeutic Interventions Home Exercise Program,Joint Mobilizations,Manual Therapy, Neuromuscular Re-education, Self-Care/Home Management, Therapeutic Activities, Therapeutic Exercises Modalities Cold Pack/Ice Massage,Electric Stimulation,Hot Packs Next Visit Focus/Plan Next Note Type Treatment Note Next Visit Plan Begin HEP for gentle RTC/ biceps strengthening, manual therapy to improve ROM as needed
--- NOTE | 2020-10-23 15:23 | PT.OTN ---
Current Diagnoses Impingement syndrome of right shoulder (10/23/20) Strain of muscle(s) and tendon(s) of the rotator cuff of right shoulder, subsequent encounter (10/23/20) Physical Therapy Treatment Note PT-OP-A Visit Information Start: 10/06/20 07:42 Freq: Status: Active Protocol: Document 10/23/20 14:13 AMB (Rec: 10/23/20 15:23 AMB [id number]) Out-Patient Physical Therapy Visit Information Visit Information Visit Type Treatment Note Visit Start Time 14:15 Visit Stop Time 15:00 Total Visit Minutes 45 Visit Number 6 PT-OP-B Current Condition Start: 10/06/20 07:42 Freq: Status: Active Protocol: Document 10/06/20 09:00 AMB (Rec: 10/06/20 09:15 AMB [id number]) Current Condition History of Current Condition Onset Date 08/15/20 Current Complaints R shoulder pain History of Current Condition 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 Had a MRI at [facility], Per pt report showed bicep tendon tear and labrum tear per pt report. Considering surgery. Does have ankylosing spondylitis. Not currently working because has a 10# lifting restriction and they don' t have work that can accomodate that. R shoulder stiffness currently. Difficulty sleeping. 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 Treatment Goals Patient/Caregiver Goals Reduce R shoulder pain returnt to work. Prior Functional Status Baseline Function- ADL's Independent Baseline Function- Mobility Independent Current Functional Impairments (Reported) Functional Limitations- ADL's Difficult lifting arm, lifting objects even of light weight (groceries) Personal Factors Other Personal Factors That May Effect Ankylosing spondylitis Therapy/Recovery PT-OP-C Subjective Start: 10/06/20 07:42 Freq: Status: Active Protocol: Document 10/23/20 14:13 AMB (Rec: 10/23/20 15:23 AMB [id number]) OP-PT Subjective Patient Comments Patient Comments Pt reports increased back pain from ankylosing spondylitis. PT-OP-F Manual Assessment Start: 10/06/20 07:42 Freq: Status: Active Protocol: Document 10/06/20 09:00 AMB (Rec: 10/07/20 08:58 AMB [email or web address]) Manual Assessments Other Manual Assessments Other Manual Assessments Tenderness at acromion, attachment of long head of biceps, and throughout scapular muscles and upper traps. PT-OP-J Posture/Palpation/Skin Start: 10/06/20 07:42 Freq: Status: Active Protocol: Document 10/06/20 09:00 AMB (Rec: 10/07/20 08:58 AMB [email or web address]) Posture Evaluation Comments Posture Comments Flat lumbar and thoracic spine PT-OP-K Range of Motion Start: 10/06/20 07:42 Freq: Status: Active Protocol: Document 10/06/20 09:00 AMB (Rec: 10/07/20 08:58 AMB [email or web address]) Shoulder Goniometric Range of Motion Shoulder Left Active Testing Position Sitting Flexion 165 Abduction 180 Internal Rotation Behind Back (text) T8 Comments T3 external rotation behind back Right Active Testing Position Sitting Flexion 135 Abduction 165 Internal Rotation Behind Back (text) L5 Comments C7 external rotation behind back PT-OP-L Special Tests Start: 10/06/20 07:42 Freq: Status: Active Protocol: Document 10/06/20 09:00 AMB (Rec: 10/07/20 08:58 AMB [email or web address]) Special Tests Shoulder Special Tests Neer Impingement Test Results - [place] Codey Impingement Test Results + PT-OP-M Strength Start: 10/06/20 07:42 Freq: Status: Active Protocol: Document 10/06/20 09:00 AMB (Rec: 10/07/20 08:58 AMB [email or web address]) Shoulder Strength Shoulder Manual Muscle Testing Left Flexion 5 Normal Abduction (C5) 5 Normal External Rotation 4+ Good+ Internal Rotation 4+ Good+ Right Flexion 4- Good- Abduction (C5) 4- Good- External Rotation 3+ Fair+ Internal Rotation 3+ Fair+ Elbow/Forearm Strength Elbow and Forearm Manual Muscle Testing Right Flexion (C6) 4 Good Comments pain with resisted elbow flexion PT-OP-Q Treatments Start: 10/06/20 07:42 Freq: Status: Active Protocol: Document 10/23/20 14:13 AMB (Rec: 10/23/20 15:23 AMB [id number]) Cardio Equipment Upper Body Ergometer (UBE) Duration (Minutes) 5 Other fwd/backward Therapeutic Exercises Supine Exercises 1 Supine Exercise Name active pec stretch Reps/Minutes 2x10 Standing Exercises 3 Standing Exercise Name UT stretch Side bilateral Reps/Minutes 30x2 2 Standing Exercise Name serratus punch AROM Side right Reps/Minutes 2x12. 1 Standing Exercise Name supine PROM Reps/Minutes all planes Manual Therapy Treatment Soft Tissue Mobilization 1 Body Location subscap/pec MFR/ occipitals Mobilization Type Myofascial Release Intensity/Depth Moderate Body Position Hooklying Comments instruction in theracane PT-OP-T Assessment and Plan Start: 10/06/20 07:42 Freq: Status: Active Protocol: Document 10/23/20 14:13 AMB (Rec: 10/23/20 15:23 AMB [id number]) Physical Therapy Assessment Assessment Summary Assessment Pt continues to have stiffness and pain in his shoulder, back and neck. PT is only working on shoulder due to L&I claim. ROM continues to be limited, better after manual and exercises, but pt continues to wake up with significant pain/stiffness. Physical Therapy Plan Next Visit Focus/Plan Next Note Type Treatment Note Next Visit Plan Begin HEP for gentle RTC/ biceps strengthening, manual therapy to improve ROM as needed
--- NOTE | 2020-10-30 15:39 | PT.OTN ---
Current Diagnoses Impingement syndrome of right shoulder (10/30/20) Strain of muscle(s) and tendon(s) of the rotator cuff of right shoulder, subsequent encounter (10/30/20) Physical Therapy Treatment Note PT-OP-A Visit Information Start: 10/06/20 07:42 Freq: Status: Active Protocol: Document 10/30/20 14:30 AMB (Rec: 10/30/20 15:19 AMB [id number]) Out-Patient Physical Therapy Visit Information Visit Information Visit Type Treatment Note Visit Start Time 14:30 Visit Stop Time 15:15 Total Visit Minutes 45 Visit Number 7 PT-OP-B Current Condition Start: 10/06/20 07:42 Freq: Status: Active Protocol: Document 10/06/20 09:00 AMB (Rec: 10/06/20 09:15 AMB [id number]) Current Condition History of Current Condition Onset Date 08/15/20 Current Complaints R shoulder pain History of Current Condition 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 Had a MRI at [facility], Per pt report showed bicep tendon tear and labrum tear per pt report. Considering surgery. Does have ankylosing spondylitis. Not currently working because has a 10# lifting restriction and they don' t have work that can accomodate that. R shoulder stiffness currently. Difficulty sleeping. 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 Treatment Goals Patient/Caregiver Goals Reduce R shoulder pain returnt to work. Prior Functional Status Baseline Function- ADL's Independent Baseline Function- Mobility Independent Current Functional Impairments (Reported) Functional Limitations- ADL's Difficult lifting arm, lifting objects even of light weight (groceries) Personal Factors Other Personal Factors That May Effect Ankylosing spondylitis Therapy/Recovery PT-OP-C Subjective Start: 10/06/20 07:42 Freq: Status: Active Protocol: Document 10/30/20 14:30 AMB (Rec: 10/30/20 15:19 AMB [id number]) OP-PT Subjective Patient Comments Patient Comments Pt is continuing to have pain and weakness, has not heard about surgery yet. PT-OP-F Manual Assessment Start: 10/06/20 07:42 Freq: Status: Active Protocol: Document 10/06/20 09:00 AMB (Rec: 10/07/20 08:58 AMB [email or web address]) Manual Assessments Other Manual Assessments Other Manual Assessments Tenderness at acromion, attachment of long head of biceps, and throughout scapular muscles and upper traps. PT-OP-J Posture/Palpation/Skin Start: 10/06/20 07:42 Freq: Status: Active Protocol: Document 10/06/20 09:00 AMB (Rec: 10/07/20 08:58 AMB [email or web address]) Posture Evaluation Comments Posture Comments Flat lumbar and thoracic spine PT-OP-K Range of Motion Start: 10/06/20 07:42 Freq: Status: Active Protocol: Document 10/06/20 09:00 AMB (Rec: 10/07/20 08:58 AMB [email or web address]) Shoulder Goniometric Range of Motion Shoulder Left Active Testing Position Sitting Flexion 165 Abduction 180 Internal Rotation Behind Back (text) T8 Comments T3 external rotation behind back Right Active Testing Position Sitting Flexion 135 Abduction 165 Internal Rotation Behind Back (text) L5 Comments C7 external rotation behind back PT-OP-L Special Tests Start: 10/06/20 07:42 Freq: Status: Active Protocol: Document 10/06/20 09:00 AMB (Rec: 10/07/20 08:58 AMB [email or web address]) Special Tests Shoulder Special Tests Neer Impingement Test Results - [place] Codey Impingement Test Results + PT-OP-M Strength Start: 10/06/20 07:42 Freq: Status: Active Protocol: Document 10/06/20 09:00 AMB (Rec: 10/07/20 08:58 AMB [email or web address]) Shoulder Strength Shoulder Manual Muscle Testing Left Flexion 5 Normal Abduction (C5) 5 Normal External Rotation 4+ Good+ Internal Rotation 4+ Good+ Right Flexion 4- Good- Abduction (C5) 4- Good- External Rotation 3+ Fair+ Internal Rotation 3+ Fair+ Elbow/Forearm Strength Elbow and Forearm Manual Muscle Testing Right Flexion (C6) 4 Good Comments pain with resisted elbow flexion PT-OP-Q Treatments Start: 10/06/20 07:42 Freq: Status: Active Protocol: Document 10/30/20 15:15 AMB (Rec: 10/30/20 15:39 AMB [id number]) Therapeutic Exercises Sidelying Exercises 2 Sidelying Exercise Name ER AROM Reps/Minutes 2x10 1 Sidelying Exercise Name open book Reps/Minutes 10 Standing Exercises 2 Standing Exercise Name serratus punch AROM Side right Reps/Minutes 2x12. 1 Standing Exercise Name supine PROM Reps/Minutes all planes Manual Therapy Treatment Soft Tissue Mobilization 1 Body Location subscap/pec MFR/ occipitals Mobilization Type Myofascial Release Intensity/Depth Moderate Body Position Hooklying Comments instruction in theracane PT-OP-T Assessment and Plan Start: 10/06/20 07:42 Freq: Status: Active Protocol: Document 10/30/20 15:15 AMB (Rec: 10/30/20 15:39 AMB [id number]) Physical Therapy Assessment Goals Three Impairment Pain Short Term Goal (STG) Flynn will improve his shoulder strength and ROM so that he can wash his back without shoulder pain. STG Duration 4 weeks Halfway Goal (LTG) Flynn will lift his arm over head without pain so that he can return to work without shoulder pain. LTG Duration 8 weeks Two Impairment Strength Short Term Goal (STG) Flynn will improve his R shoulder strength to 4/5 in all planes. STG Duration 4 weeks Halfway Goal (LTG) Flynn will lift 10# to shoulder height without an increase in shoulder pain. LTG Duration 6 weeks One Impairment ROM Short Term Goal (STG) Flynn will improve his shoulder flexion (active) to 160 degrees. STG Duration 4 weeks Assessment Summary Assessment Pt continues to have pain with end range mobility and fatigues quickly with AROM but did tolerate more ER today. Physical Therapy Plan Next Visit Focus/Plan Next Note Type Treatment Note Next Visit Plan Begin HEP for gentle RTC/ biceps strengthening, manual therapy to improve ROM as needed
--- NOTE | 2020-11-07 11:22 | PT-OP ANOTE ---
Pt no showed appt, called and he was apologetic, stating his phone had been off and he did not have an alarm set. He was reminded of his next appt time and the no show policy.
--- NOTE | 2020-11-18 15:07 | PT.OTN ---
Current Diagnoses Impingement syndrome of right shoulder (11/18/20) Strain of muscle(s) and tendon(s) of the rotator cuff of right shoulder, subsequent encounter (11/18/20) Physical Therapy Treatment Note PT-OP-A Visit Information Start: 10/06/20 07:42 Freq: Status: Active Protocol: Document 11/18/20 12:45 AMB (Rec: 11/18/20 15:07 AMB [email or web address]) Out-Patient Physical Therapy Visit Information Visit Information Visit Type Progress Note Visit Start Time 12:45 Visit Stop Time 13:30 Total Visit Minutes 45 Visit Number 8 PT-OP-B Current Condition Start: 10/06/20 07:42 Freq: Status: Active Protocol: Document 10/06/20 09:00 AMB (Rec: 10/06/20 09:15 AMB [id number]) Current Condition History of Current Condition Onset Date 08/15/20 Current Complaints R shoulder pain History of Current Condition 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 Had a MRI at [facility], Per pt report showed bicep tendon tear and labrum tear per pt report. Considering surgery. Does have ankylosing spondylitis. Not currently working because has a 10# lifting restriction and they don' t have work that can accomodate that. R shoulder stiffness currently. Difficulty sleeping. 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 Treatment Goals Patient/Caregiver Goals Reduce R shoulder pain returnt to work. Prior Functional Status Baseline Function- ADL's Independent Baseline Function- Mobility Independent Current Functional Impairments (Reported) Functional Limitations- ADL's Difficult lifting arm, lifting objects even of light weight (groceries) Personal Factors Other Personal Factors That May Effect Ankylosing spondylitis Therapy/Recovery PT-OP-C Subjective Start: 10/06/20 07:42 Freq: Status: Active Protocol: Document 11/18/20 12:45 AMB (Rec: 11/18/20 15:07 AMB [email or web address]) OP-PT Subjective Patient Comments Patient Comments Pt has not been seen in 19 days. Reports increased pain. Patient Questionnaires Quick Dash- Upper Extremity Quick Dash UE Score 68 Quick Dash UE Impairment 60 to 79% Impaired (Score 60- 79) PT-OP-F Manual Assessment Start: 10/06/20 07:42 Freq: Status: Active Protocol: Document 10/06/20 09:00 AMB (Rec: 10/07/20 08:58 AMB [email or web address]) Manual Assessments Other Manual Assessments Other Manual Assessments Tenderness at acromion, attachment of long head of biceps, and throughout scapular muscles and upper traps. PT-OP-J Posture/Palpation/Skin Start: 10/06/20 07:42 Freq: Status: Active Protocol: Document 10/06/20 09:00 AMB (Rec: 10/07/20 08:58 AMB [email or web address]) Posture Evaluation Comments Posture Comments Flat lumbar and thoracic spine PT-OP-K Range of Motion Start: 10/06/20 07:42 Freq: Status: Active Protocol: Document 11/18/20 12:45 AMB (Rec: 11/18/20 15:07 AMB [email or web address]) Shoulder Goniometric Range of Motion Shoulder Right Active Flexion 110 Abduction 130 PT-OP-L Special Tests Start: 10/06/20 07:42 Freq: Status: Active Protocol: Document 10/06/20 09:00 AMB (Rec: 10/07/20 08:58 AMB [email or web address]) Special Tests Shoulder Special Tests Neer Impingement Test Results - [place] Codey Impingement Test Results + PT-OP-M Strength Start: 10/06/20 07:42 Freq: Status: Active Protocol: Document 11/18/20 12:45 AMB (Rec: 11/18/20 15:07 AMB [email or web address]) Shoulder Strength Shoulder Manual Muscle Testing Right External Rotation 3+ Fair+ Internal Rotation 3+ Fair+ PT-OP-Q Treatments Start: 10/06/20 07:42 Freq: Status: Active Protocol: Document 11/18/20 12:45 AMB (Rec: 11/18/20 15:07 AMB [email or web address]) Therapeutic Exercises Supine Exercises 2 Supine Exercise Name flexion AROM Reps/Minutes 10 Comments partial range approx 100 1 Supine Exercise Name active pec stretch Reps/Minutes 2x10 Standing Exercises 3 Standing Exercise Name UT stretch Side bilateral Reps/Minutes 30x2 1 Standing Exercise Name supine PROM Reps/Minutes all planes Manual Therapy Treatment Soft Tissue Mobilization 1 Body Location subscap/pec MFR/ occipitals Mobilization Type Myofascial Release Intensity/Depth Moderate Body Position Hooklying Comments instruction in theracane PT-OP-T Assessment and Plan Start: 10/06/20 07:42 Freq: Status: Active Protocol: Document 11/18/20 12:45 AMB (Rec: 11/18/20 15:07 AMB [email or web address]) Physical Therapy Assessment Goals Three Impairment Pain Short Term Goal (STG) Flynn will improve his shoulder strength and ROM so that he can wash his back without shoulder pain. 8/3: NOT MET STG Duration 4 weeks Powder Worker Tnt Goal (LTG) Flynn will lift his arm over head without pain so that he can return to work without shoulder pain. 8/3: not met LTG Duration 8 weeks Two Impairment Strength Short Term Goal (STG) Flynn will improve his R shoulder strength to 4/5 in all planes. 8/3: NOT MET STG Duration 4 weeks Powder Worker Tnt Goal (LTG) Flynn will lift 10# to shoulder height without an increase in shoulder pain. 8/ 3: NOT MET LTG Duration 6 weeks One Impairment ROM Short Term Goal (STG) Flynn will improve his shoulder flexion (active) to 160 degrees. 8/3: NOT MET STG Duration 4 weeks Assessment Summary Assessment Flynn has not been seen in 19 days due to a no show and not being available for appoinments when they were available. This was his 8th appointment. He is continuing to hope for surgery . His ROM and pain were worse today than at [facility]. While we have kept his HEP very gentle , he has had difficulty continuing with it due to pain . Physical Therapy Plan Frequency and Duration Frequency of Treatment 2x/Week Duration of Treatment 6 weeks Plan of Care Start Date 11/18/20 Plan of Care End Date 12/30/20 Therapeutic Interventions Therapeutic Interventions Home Exercise Program,Joint Mobilizations,Manual Therapy, Neuromuscular Re-education, Self-Care/Home Management, Therapeutic Activities, Therapeutic Exercises Modalities Cold Pack/Ice Massage,Electric Stimulation,Hot Packs Next Visit Focus/Plan Next Note Type Treatment Note Next Visit Plan Follow up on adherence to HEP, pt's tolerance to HEP had been improving, but pt seems to have deteriorated in the last two weeks of not having PT.
--- NOTE | 2020-11-18 15:08 | PT.OPPOC ---
Physical, Occupational & Speech Therapy At [facility] Current Diagnoses Impingement syndrome of right shoulder (11/18/20) Strain of muscle(s) and tendon(s) of the rotator cuff of right shoulder, subsequent encounter (11/18/20) Visit Care Team Role Provider Type Ray Stover DO Primary Care Provider Non-Staff Specialty: Medical Address: [address] [place] [address], [place], [address] Fax: Email: Tylor Aguayo MD Attending Provider Non-Staff Referring Provider Specialty: Physical Medicine and Rehab Address: [facility] [place], [place], [address] Email: Plan Of Care PT-OP-T Assessment and Plan Start: 10/06/20 07:42 Freq: Status: Active Protocol: Document 11/18/20 12:45 AMB (Rec: 11/18/20 15:07 AMB [email or web address]) Physical Therapy Assessment Goals Three Impairment Pain Short Term Goal (STG) Flynn will improve his shoulder strength and ROM so that he can wash his back without shoulder pain. 8/3: NOT MET STG Duration 4 weeks Halfway Goal (LTG) Flynn will lift his arm over head without pain so that he can return to work without shoulder pain. 8/3: not met LTG Duration 8 weeks Two Impairment Strength Short Term Goal (STG) Flynn will improve his R shoulder strength to 4/5 in all planes. 8/3: NOT MET STG Duration 4 weeks Halfway Goal (LTG) Flynn will lift 10# to shoulder height without an increase in shoulder pain. 8/ 3: NOT MET LTG Duration 6 weeks One Impairment ROM Short Term Goal (STG) Flynn will improve his shoulder flexion (active) to 160 degrees. 8/3: NOT MET STG Duration 4 weeks Assessment Summary Assessment Flynn has not been seen in 19 days due to a no show and not being available for appoinments when they were available. This was his 8th appointment. He is continuing to hope for surgery . His ROM and pain were worse today than at eval. While we have kept his HEP very gentle , he has had difficulty continuing with it due to pain . Physical Therapy Plan Frequency and Duration Frequency of Treatment 2x/Week Duration of Treatment 6 weeks Plan of Care Start Date 11/18/20 Plan of Care End Date 12/30/20 Therapeutic Interventions Therapeutic Interventions Home Exercise Program,Joint Mobilizations,Manual Therapy, Neuromuscular Re-education, Self-Care/Home Management, Therapeutic Activities, Therapeutic Exercises Modalities Cold Pack/Ice Massage,Electric Stimulation,Hot Packs Next Visit Focus/Plan Next Note Type Treatment Note Next Visit Plan Follow up on adherence to HEP, pt's tolerance to HEP had been improving, but pt seems to have deteriorated in the last two weeks of not having PT. Plan of Care Dates Plan of Care Start Date 11/18/20 Plan of Care End Date 12/30/20 Electronically Signed by: Jaz Claire, PT 11/18/20 [id number] Please Sign and Return: I have reviewed this Plan of Care and certify that the skilled therapy services above are required to meet the patient?s needs. Physician Signature Date Printed Name and Credentials Clinical Instructor Signature Printed Name and Credentials
--- NOTE | 2020-11-21 12:01 | PT.OTN ---
Current Diagnoses Impingement syndrome of right shoulder (11/21/20) Strain of muscle(s) and tendon(s) of the rotator cuff of right shoulder, subsequent encounter (11/21/20) Physical Therapy Treatment Note PT-OP-A Visit Information Start: 10/06/20 07:42 Freq: Status: Active Protocol: Document 11/21/20 10:15 AMB (Rec: 11/21/20 10:49 AMB [id number]) Out-Patient Physical Therapy Visit Information Visit Information Visit Type Treatment Note Visit Start Time 10:15 Visit Stop Time 11:00 Total Visit Minutes 45 Visit Number 9 PT-OP-B Current Condition Start: 10/06/20 07:42 Freq: Status: Active Protocol: Document 10/06/20 09:00 AMB (Rec: 10/06/20 09:15 AMB [id number]) Current Condition History of Current Condition Onset Date 08/15/20 Current Complaints R shoulder pain History of Current Condition 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 Had a MRI at [facility], Per pt report showed bicep tendon tear and labrum tear per pt report. Considering surgery. Does have ankylosing spondylitis. Not currently working because has a 10# lifting restriction and they don' t have work that can accomodate that. R shoulder stiffness currently. Difficulty sleeping. 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 Treatment Goals Patient/Caregiver Goals Reduce R shoulder pain returnt to work. Prior Functional Status Baseline Function- ADL's Independent Baseline Function- Mobility Independent Current Functional Impairments (Reported) Functional Limitations- ADL's Difficult lifting arm, lifting objects even of light weight (groceries) Personal Factors Other Personal Factors That May Effect Ankylosing spondylitis Therapy/Recovery PT-OP-C Subjective Start: 10/06/20 07:42 Freq: Status: Active Protocol: Document 11/21/20 10:15 AMB (Rec: 11/21/20 10:49 AMB [id number]) OP-PT Subjective Patient Comments Patient Comments Pt is noticing some hand numbness with overhead motions . PT-OP-F Manual Assessment Start: 10/06/20 07:42 Freq: Status: Active Protocol: Document 10/06/20 09:00 AMB (Rec: 10/07/20 08:58 AMB [email or web address]) Manual Assessments Other Manual Assessments Other Manual Assessments Tenderness at acromion, attachment of long head of biceps, and throughout scapular muscles and upper traps. PT-OP-J Posture/Palpation/Skin Start: 10/06/20 07:42 Freq: Status: Active Protocol: Document 10/06/20 09:00 AMB (Rec: 10/07/20 08:58 AMB [email or web address]) Posture Evaluation Comments Posture Comments Flat lumbar and thoracic spine PT-OP-K Range of Motion Start: 10/06/20 07:42 Freq: Status: Active Protocol: Document 11/18/20 12:45 AMB (Rec: 11/18/20 15:07 AMB [email or web address]) Shoulder Goniometric Range of Motion Shoulder Right Active Flexion 110 Abduction 130 PT-OP-L Special Tests Start: 10/06/20 07:42 Freq: Status: Active Protocol: Document 10/06/20 09:00 AMB (Rec: 10/07/20 08:58 AMB [email or web address]) Special Tests Shoulder Special Tests Neer Impingement Test Results - Mills Codey Impingement Test Results + PT-OP-M Strength Start: 10/06/20 07:42 Freq: Status: Active Protocol: Document 11/18/20 12:45 AMB (Rec: 11/18/20 15:07 AMB [email or web address]) Shoulder Strength Shoulder Manual Muscle Testing Right External Rotation 3+ Fair+ Internal Rotation 3+ Fair+ PT-OP-Q Treatments Start: 10/06/20 07:42 Freq: Status: Active Protocol: Document 11/21/20 10:15 AMB (Rec: 11/21/20 12:00 AMB [email or web address]) Cardio Equipment Upper Body Ergometer (UBE) Duration (Minutes) 5 Other fwd/backward Therapeutic Exercises Supine Exercises 2 Supine Exercise Name flexion AROM Reps/Minutes 10 Comments partial range approx 100 Sidelying Exercises 2 Sidelying Exercise Name ER AROM Reps/Minutes 2x10 1 Sidelying Exercise Name open book Reps/Minutes 10 Standing Exercises 6 Standing Exercise Name t band IR Reps/Minutes L1, 2x10 5 Standing Exercise Name t band rows Resistance L2 Reps/Minutes 2x10 2 Standing Exercise Name serratus punch AROM Side right Reps/Minutes 2x12. 1 Standing Exercise Name supine PROM Reps/Minutes all planes Manual Therapy Treatment Soft Tissue Mobilization 1 Body Location subscap/pec MFR/ occipitals Mobilization Type Myofascial Release Intensity/Depth Moderate Body Position Hooklying Comments instruction in theracane Joint Mobilizations 1 Joint inferior glide and AP Grade III PT-OP-T Assessment and Plan Start: 10/06/20 07:42 Freq: Status: Active Protocol: Document 11/21/20 10:15 AMB (Rec: 11/21/20 12:00 AMB [email or web address]) Physical Therapy Assessment Assessment Summary Assessment Flynn had better ROM today than at last visit. Continues to be frustrated by L and I and hold ups with surgery, continues to feel like he needs surgery. Physical Therapy Plan Next Visit Focus/Plan Next Note Type Treatment Note Next Visit Plan Continue to progress HEP with icing as necessary
--- NOTE | 2020-11-26 13:31 | PT.OTN ---
Current Diagnoses Impingement syndrome of right shoulder (11/26/20) Strain of muscle(s) and tendon(s) of the rotator cuff of right shoulder, subsequent encounter (11/26/20) Physical Therapy Treatment Note PT-OP-A Visit Information Start: 10/06/20 07:42 Freq: Status: Active Protocol: Document 11/26/20 12:45 AMB (Rec: 11/26/20 13:07 AMB [id number]) Out-Patient Physical Therapy Visit Information Visit Information Visit Type Treatment Note Visit Start Time 12:45 Visit Stop Time 13:30 Total Visit Minutes 45 Visit Number 10 PT-OP-B Current Condition Start: 10/06/20 07:42 Freq: Status: Active Protocol: Document 10/06/20 09:00 AMB (Rec: 10/06/20 09:15 AMB [id number]) Current Condition History of Current Condition Onset Date 08/15/20 Current Complaints R shoulder pain History of Current Condition 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 Had a MRI at [facility], Per pt report showed bicep tendon tear and labrum tear per pt report. Considering surgery. Does have ankylosing spondylitis. Not currently working because has a 10# lifting restriction and they don' t have work that can accomodate that. R shoulder stiffness currently. Difficulty sleeping. 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 Treatment Goals Patient/Caregiver Goals Reduce R shoulder pain returnt to work. Prior Functional Status Baseline Function- ADL's Independent Baseline Function- Mobility Independent Current Functional Impairments (Reported) Functional Limitations- ADL's Difficult lifting arm, lifting objects even of light weight (groceries) Personal Factors Other Personal Factors That May Effect Ankylosing spondylitis Therapy/Recovery PT-OP-C Subjective Start: 10/06/20 07:42 Freq: Status: Active Protocol: Document 11/26/20 12:45 AMB (Rec: 11/26/20 13:07 AMB [id number]) OP-PT Subjective Patient Comments Patient Comments Shoulder is going ok, but back pain has been really bad. PT-OP-F Manual Assessment Start: 10/06/20 07:42 Freq: Status: Active Protocol: Document 10/06/20 09:00 AMB (Rec: 10/07/20 08:58 AMB [email or web address]) Manual Assessments Other Manual Assessments Other Manual Assessments Tenderness at acromion, attachment of long head of biceps, and throughout scapular muscles and upper traps. PT-OP-J Posture/Palpation/Skin Start: 10/06/20 07:42 Freq: Status: Active Protocol: Document 10/06/20 09:00 AMB (Rec: 10/07/20 08:58 AMB [email or web address]) Posture Evaluation Comments Posture Comments Flat lumbar and thoracic spine PT-OP-K Range of Motion Start: 10/06/20 07:42 Freq: Status: Active Protocol: Document 11/18/20 12:45 AMB (Rec: 11/18/20 15:07 AMB [email or web address]) Shoulder Goniometric Range of Motion Shoulder Right Active Flexion 110 Abduction 130 PT-OP-L Special Tests Start: 10/06/20 07:42 Freq: Status: Active Protocol: Document 10/06/20 09:00 AMB (Rec: 10/07/20 08:58 AMB [email or web address]) Special Tests Shoulder Special Tests Neer Impingement Test Results - Mills Co[place] Impingement Test Results + PT-OP-M Strength Start: 10/06/20 07:42 Freq: Status: Active Protocol: Document 11/18/20 12:45 AMB (Rec: 11/18/20 15:07 AMB [email or web address]) Shoulder Strength Shoulder Manual Muscle Testing Right External Rotation 3+ Fair+ Internal Rotation 3+ Fair+ PT-OP-Q Treatments Start: 10/06/20 07:42 Freq: Status: Active Protocol: Document 11/26/20 12:45 AMB (Rec: 11/26/20 13:07 AMB [id number]) Therapeutic Exercises Sidelying Exercises 3 Sidelying Exercise Name abduction AROM Reps/Minutes 2x10 Comments to approx 100 de 2 Sidelying Exercise Name ER AROM Reps/Minutes 2x10 1 Sidelying Exercise Name open book Reps/Minutes 10 Standing Exercises 6 Standing Exercise Name t band IR Reps/Minutes L2, 2x10 5 Standing Exercise Name t band rows Resistance L3 Reps/Minutes 2x10 4 Standing Exercise Name t band shoulder flexion Resistance 2 Reps/Minutes 2x10 Comments to 45 degrees 1 Standing Exercise Name supine PROM Reps/Minutes all planes Manual Therapy Treatment Soft Tissue Mobilization 1 Body Location subscap/pec MFR/ occipitals Mobilization Type Myofascial Release Intensity/Depth Moderate Body Position Hooklying Joint Mobilizations 1 Joint inferior glide and AP Grade III Taping 1 Body Location I and Y for GH and scapular stabilization Type of Tape Kinesio Tape PT-OP-T Assessment and Plan Start: 10/06/20 07:42 Freq: Status: Active Protocol: Document 11/26/20 12:45 AMB (Rec: 11/26/20 13:07 AMB [id number]) Physical Therapy Assessment Goals Three Impairment Pain Short Term Goal (STG) Flynn will improve his shoulder strength and ROM so that he can wash his back without shoulder pain. 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 8/3: not met LTG Duration 8 weeks Two Impairment Strength Short Term Goal (STG) Flynn will improve his R shoulder strength to 4/5 in all planes. 8/3: NOT MET STG Duration 4 weeks Asbestos Hazard Abatement Worker Goal (LTG) Flynn will lift 10# to shoulder height without an increase in shoulder pain. 8/ 3: NOT MET LTG Duration 6 weeks One Impairment ROM Short Term Goal (STG) Flynn will improve his shoulder flexion (active) to 160 degrees. 8/3: NOT MET STG Duration 4 weeks Assessment Summary Assessment Flynn doing better today than previous two appointments with range of motion and increased tolerance fore exercises, given increased challenge with resistance of T band. Physical Therapy Plan Next Visit Focus/Plan Next Note Type Treatment Note Next Visit Plan Continue to progress HEP with icing as necessary
--- NOTE | 2020-11-28 16:00 | PT.OTN ---
Current Diagnoses Impingement syndrome of right shoulder (11/28/20) Strain of muscle(s) and tendon(s) of the rotator cuff of right shoulder, subsequent encounter (11/28/20) Physical Therapy Treatment Note PT-OP-A Visit Information Start: 10/06/20 07:42 Freq: Status: Active Protocol: Document 11/28/20 14:15 AMB (Rec: 11/28/20 15:22 AMB [id number]) Out-Patient Physical Therapy Visit Information Visit Information Visit Type Treatment Note Visit Start Time 14:15 Visit Stop Time 15:00 Total Visit Minutes 45 Visit Number 11 PT-OP-B Current Condition Start: 10/06/20 07:42 Freq: Status: Active Protocol: Document 10/06/20 09:00 AMB (Rec: 10/06/20 09:15 AMB [id number]) Current Condition History of Current Condition Onset Date 08/15/20 Current Complaints R shoulder pain History of Current Condition 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 Had a MRI at [facility], Per pt report showed bicep tendon tear and labrum tear per pt report. Considering surgery. Does have ankylosing spondylitis. Not currently working because has a 10# lifting restriction and they don' t have work that can accomodate that. R shoulder stiffness currently. Difficulty sleeping. 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 Treatment Goals Patient/Caregiver Goals Reduce R shoulder pain returnt to work. Prior Functional Status Baseline Function- ADL's Independent Baseline Function- Mobility Independent Current Functional Impairments (Reported) Functional Limitations- ADL's Difficult lifting arm, lifting objects even of light weight (groceries) Personal Factors Other Personal Factors That May Effect Ankylosing spondylitis Therapy/Recovery PT-OP-C Subjective Start: 10/06/20 07:42 Freq: Status: Active Protocol: Document 11/28/20 14:15 AMB (Rec: 11/28/20 15:22 AMB [id number]) OP-PT Subjective Patient Comments Patient Comments Shoulder exercises are going ok, hand does get numb at times. PT-OP-F Manual Assessment Start: 10/06/20 07:42 Freq: Status: Active Protocol: Document 10/06/20 09:00 AMB (Rec: 10/07/20 08:58 AMB [email or web address]) Manual Assessments Other Manual Assessments Other Manual Assessments Tenderness at acromion, attachment of long head of biceps, and throughout scapular muscles and upper traps. PT-OP-J Posture/Palpation/Skin Start: 10/06/20 07:42 Freq: Status: Active Protocol: Document 10/06/20 09:00 AMB (Rec: 10/07/20 08:58 AMB [email or web address]) Posture Evaluation Comments Posture Comments Flat lumbar and thoracic spine PT-OP-K Range of Motion Start: 10/06/20 07:42 Freq: Status: Active Protocol: Document 11/18/20 12:45 AMB (Rec: 11/18/20 15:07 AMB [email or web address]) Shoulder Goniometric Range of Motion Shoulder Right Active Flexion 110 Abduction 130 PT-OP-L Special Tests Start: 10/06/20 07:42 Freq: Status: Active Protocol: Document 10/06/20 09:00 AMB (Rec: 10/07/20 08:58 AMB [email or web address]) Special Tests Shoulder Special Tests Neer Impingement Test Results - Mills Codey Impingement Test Results + PT-OP-M Strength Start: 10/06/20 07:42 Freq: Status: Active Protocol: Document 11/18/20 12:45 AMB (Rec: 11/18/20 15:07 AMB [email or web address]) Shoulder Strength Shoulder Manual Muscle Testing Right External Rotation 3+ Fair+ Internal Rotation 3+ Fair+ PT-OP-Q Treatments Start: 10/06/20 07:42 Freq: Status: Active Protocol: Document 11/28/20 14:15 AMB (Rec: 11/28/20 15:22 AMB [id number]) Cardio Equipment Upper Body Ergometer (UBE) Duration (Minutes) 5 Other fwd/backward Therapeutic Exercises Sidelying Exercises 3 Sidelying Exercise Name abduction AROM Reps/Minutes 2x10 Comments to approx 100 de 2 Sidelying Exercise Name ER AROM Reps/Minutes 2x10 Standing Exercises 7 Standing Exercise Name shoulder extension Resistance t band Reps/Minutes 2x10 6 Standing Exercise Name t band IR Reps/Minutes L2, 2x10 5 Standing Exercise Name t band rows Resistance L3 Reps/Minutes 2x10 4 Standing Exercise Name t band shoulder flexion Resistance 2 Reps/Minutes 2x10 Comments to 45 degrees 1 Standing Exercise Name supine PROM Reps/Minutes all planes Manual Therapy Treatment Soft Tissue Mobilization 1 Body Location subscap/pec MFR/ occipitals Mobilization Type Myofascial Release Intensity/Depth Moderate Body Position Hooklying Joint Mobilizations 1 Joint inferior glide and AP Grade III PT-OP-T Assessment and Plan Start: 10/06/20 07:42 Freq: Status: Active Protocol: Document 11/28/20 14:15 AMB (Rec: 11/28/20 15:22 AMB [id number]) Physical Therapy Assessment Goals Three Impairment Pain Short Term Goal (STG) Flynn will improve his shoulder strength and ROM so that he can wash his back without shoulder pain. 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 8/3: not met LTG Duration 8 weeks Two Impairment Strength Short Term Goal (STG) Flynn will improve his R shoulder strength to 4/5 in all planes. 8/3: NOT MET STG Duration 4 weeks Assisted Goal (LTG) Flynn will lift 10# to shoulder height without an increase in shoulder pain. 8/ 3: NOT MET LTG Duration 6 weeks One Impairment ROM Short Term Goal (STG) Flynn will improve his shoulder flexion (active) to 160 degrees. 8/3: NOT MET STG Duration 4 weeks Assessment Summary Assessment Continues to have pain with lifting shoulder above shoulder height, but pain at other times has improved. Physical Therapy Plan Frequency and Duration Frequency of Treatment 2x/Week Duration of Treatment 6 weeks Plan of Care Start Date 11/18/20 Plan of Care End Date 12/30/20 Therapeutic Interventions Therapeutic Interventions Home Exercise Program,Joint Mobilizations,Manual Therapy, Neuromuscular Re-education, Self-Care/Home Management, Therapeutic Activities, Therapeutic Exercises Modalities Cold Pack/Ice Massage,Electric Stimulation,Hot Packs Next Visit Focus/Plan Next Note Type Treatment Note Next Visit Plan Continue to progress HEP with icing as necessary
--- NOTE | 2020-12-05 10:41 | PT.OTN ---
Current Diagnoses Impingement syndrome of right shoulder (12/05/20) Strain of muscle(s) and tendon(s) of the rotator cuff of right shoulder, subsequent encounter (12/05/20) Physical Therapy Treatment Note PT-OP-A Visit Information Start: 10/06/20 07:42 Freq: Status: Active Protocol: Document 12/05/20 07:30 AMB (Rec: 12/05/20 08:09 AMB [id number]) Out-Patient Physical Therapy Visit Information Visit Information Visit Type Treatment Note Visit Start Time 07:30 Visit Stop Time 08:15 Total Visit Minutes 45 Visit Number 12 PT-OP-B Current Condition Start: 10/06/20 07:42 Freq: Status: Active Protocol: Document 10/06/20 09:00 AMB (Rec: 10/06/20 09:15 AMB [id number]) Current Condition History of Current Condition Onset Date 08/15/20 Current Complaints R shoulder pain History of Current Condition 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 Had a MRI at [facility], Per pt report showed bicep tendon tear and labrum tear per pt report. Considering surgery. Does have ankylosing spondylitis. Not currently working because has a 10# lifting restriction and they don' t have work that can accomodate that. R shoulder stiffness currently. Difficulty sleeping. 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 Treatment Goals Patient/Caregiver Goals Reduce R shoulder pain returnt to work. Prior Functional Status Baseline Function- ADL's Independent Baseline Function- Mobility Independent Current Functional Impairments (Reported) Functional Limitations- ADL's Difficult lifting arm, lifting objects even of light weight (groceries) Personal Factors Other Personal Factors That May Effect Ankylosing spondylitis Therapy/Recovery PT-OP-C Subjective Start: 10/06/20 07:42 Freq: Status: Active Protocol: Document 12/05/20 07:30 AMB (Rec: 12/05/20 08:09 AMB [id number]) OP-PT Subjective Patient Comments Patient Comments Hand numbness has been better. Pt is doing exercises and they are going fine, stiff this morning. PT-OP-F Manual Assessment Start: 10/06/20 07:42 Freq: Status: Active Protocol: Document 10/06/20 09:00 AMB (Rec: 10/07/20 08:58 AMB [email or web address]) Manual Assessments Other Manual Assessments Other Manual Assessments Tenderness at acromion, attachment of long head of biceps, and throughout scapular muscles and upper traps. PT-OP-J Posture/Palpation/Skin Start: 10/06/20 07:42 Freq: Status: Active Protocol: Document 10/06/20 09:00 AMB (Rec: 10/07/20 08:58 AMB [email or web address]) Posture Evaluation Comments Posture Comments Flat lumbar and thoracic spine PT-OP-K Range of Motion Start: 10/06/20 07:42 Freq: Status: Active Protocol: Document 11/18/20 12:45 AMB (Rec: 11/18/20 15:07 AMB [email or web address]) Shoulder Goniometric Range of Motion Shoulder Right Active Flexion 110 Abduction 130 PT-OP-L Special Tests Start: 10/06/20 07:42 Freq: Status: Active Protocol: Document 10/06/20 09:00 AMB (Rec: 10/07/20 08:58 AMB [email or web address]) Special Tests Shoulder Special Tests Neer Impingement Test Results - Mills Codey Impingement Test Results + PT-OP-M Strength Start: 10/06/20 07:42 Freq: Status: Active Protocol: Document 11/18/20 12:45 AMB (Rec: 11/18/20 15:07 AMB [email or web address]) Shoulder Strength Shoulder Manual Muscle Testing Right External Rotation 3+ Fair+ Internal Rotation 3+ Fair+ PT-OP-Q Treatments Start: 10/06/20 07:42 Freq: Status: Active Protocol: Document 12/05/20 07:30 AMB (Rec: 12/05/20 10:32 AMB [email or web address]) Cardio Equipment Upper Body Ergometer (UBE) Duration (Minutes) 5 Other fwd/backward Therapeutic Exercises Sidelying Exercises 3 Sidelying Exercise Name abduction AROM Reps/Minutes 2x10 Comments to approx 100 de 2 Sidelying Exercise Name ER AROM Reps/Minutes 2x10 Standing Exercises 7 Standing Exercise Name shoulder extension Side bilateral Resistance L3 t band Reps/Minutes 2x10 6 Standing Exercise Name t band IR Side right Reps/Minutes L2, 2x10 5 Standing Exercise Name t band rows Side bilateral Resistance L3 Reps/Minutes 2x10 4 Standing Exercise Name t band shoulder flexion Side right Resistance 2 Reps/Minutes 2x10 Comments to 45 degrees 3 Standing Exercise Name t band adduction Side right Equipment Used #3 Reps/Minutes 2x10 2 Standing Exercise Name PNF D2 extension Resistance L1 Reps/Minutes 10 Comments unable to go through full rom 1 Standing Exercise Name supine PROM Reps/Minutes all planes Manual Therapy Treatment Soft Tissue Mobilization 1 Body Location subscap/pec MFR/ occipitals Mobilization Type Myofascial Release Intensity/Depth Moderate Body Position Hooklying PT-OP-T Assessment and Plan Start: 10/06/20 07:42 Freq: Status: Active Protocol: Document 12/05/20 07:30 AMB (Rec: 12/05/20 08:09 AMB [id number]) Physical Therapy Assessment Goals Three Impairment Pain Short Term Goal (STG) Flynn will improve his shoulder strength and ROM so that he can wash his back without shoulder pain. 8/3: NOT MET STG Duration 4 weeks Retirement Goal (LTG) Flynn will lift his arm over head without pain so that he can return to work without shoulder pain. 8/3: not met LTG Duration 8 weeks Two Impairment Strength Short Term Goal (STG) Flynn will improve his R shoulder strength to 4/5 in all planes. 8/3: NOT MET STG Duration 4 weeks Transport Truck Driver Goal (LTG) Flynn will lift 10# to shoulder height without an increase in shoulder pain. 8/ 3: NOT MET LTG Duration 6 weeks One Impairment ROM Short Term Goal (STG) Flynn will improve his shoulder flexion (active) to 160 degrees. 8/3: NOT MET STG Duration 4 weeks Assessment Summary Assessment Flynn tolerated more exercise today, but continues to have pain at end range. His strength is also quite limited at end range. He has been talking with [facility] and is continuing to hope that they approve surgery. Physical Therapy Plan Next Visit Focus/Plan Next Note Type Treatment Note Next Visit Plan Continue to progress HEP with icing as necessary
--- NOTE | 2020-12-09 08:15 | PT.OTN ---
Current Diagnoses Impingement syndrome of right shoulder (12/09/20) Strain of muscle(s) and tendon(s) of the rotator cuff of right shoulder, subsequent encounter (12/09/20) Physical Therapy Treatment Note PT-OP-A Visit Information Start: 10/06/20 07:42 Freq: Status: Active Protocol: Document 12/09/20 07:30 SP (Rec: 12/09/20 08:16 SP [id number]) Out-Patient Physical Therapy Visit Information Visit Information Visit Type Treatment Note Visit Start Time 07:30 Visit Stop Time 08:15 Total Visit Minutes 45 Visit Number 13 Number of SOUND PERSON Visits 1 PT-OP-B Current Condition Start: 10/06/20 07:42 Freq: Status: Active Protocol: Document 10/06/20 09:00 AMB (Rec: 10/06/20 09:15 AMB [id number]) Current Condition History of Current Condition Onset Date 08/15/20 Current Complaints R shoulder pain History of Current Condition 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 Had a MRI at [facility], Per pt report showed bicep tendon tear and labrum tear per pt report. Considering surgery. Does have ankylosing spondylitis. Not currently working because has a 10# lifting restriction and they don' t have work that can accomodate that. R shoulder stiffness currently. Difficulty sleeping. 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 Treatment Goals Patient/Caregiver Goals Reduce R shoulder pain returnt to work. Prior Functional Status Baseline Function- ADL's Independent Baseline Function- Mobility Independent Current Functional Impairments (Reported) Functional Limitations- ADL's Difficult lifting arm, lifting objects even of light weight (groceries) Personal Factors Other Personal Factors That May Effect Ankylosing spondylitis Therapy/Recovery PT-OP-C Subjective Start: 10/06/20 07:42 Freq: Status: Active Protocol: Document 12/09/20 07:30 SP (Rec: 12/09/20 08:16 SP [id number]) OP-PT Subjective Patient Comments Patient Comments Pt stated [place] his covid [place] in [place] on Fri and was having pain, pretty sore over R deltoid pointed to and lethargic rest of day. Just sleep all day to help recover. Pt stated doing better today, numbness into R arm only positional like when doing out to side or arm hanging down. Compliant with HEP. PT-OP-F Manual Assessment Start: 10/06/20 07:42 Freq: Status: Active Protocol: Document 10/06/20 09:00 AMB (Rec: 10/07/20 08:58 AMB [email or web address]) Manual Assessments Other Manual Assessments Other Manual Assessments Tenderness at acromion, attachment of long head of biceps, and throughout scapular muscles and upper traps. PT-OP-J Posture/Palpation/Skin Start: 10/06/20 07:42 Freq: Status: Active Protocol: Document 10/06/20 09:00 AMB (Rec: 10/07/20 08:58 AMB [email or web address]) Posture Evaluation Comments Posture Comments Flat lumbar and thoracic spine PT-OP-K Range of Motion Start: 10/06/20 07:42 Freq: Status: Active Protocol: Document 11/18/20 12:45 AMB (Rec: 11/18/20 15:07 AMB [email or web address]) Shoulder Goniometric Range of Motion Shoulder Right Active Flexion 110 Abduction 130 PT-OP-L Special Tests Start: 10/06/20 07:42 Freq: Status: Active Protocol: Document 10/06/20 09:00 AMB (Rec: 10/07/20 08:58 AMB [email or web address]) Special Tests Shoulder Special Tests Neer Impingement Test Results - Mills Codey Impingement Test Results + PT-OP-M Strength Start: 10/06/20 07:42 Freq: Status: Active Protocol: Document 11/18/20 12:45 AMB (Rec: 11/18/20 15:07 AMB [email or web address]) Shoulder Strength Shoulder Manual Muscle Testing Right External Rotation 3+ Fair+ Internal Rotation 3+ Fair+ PT-OP-Q Treatments Start: 10/06/20 07:42 Freq: Status: Active Protocol: Document 12/09/20 07:30 SP (Rec: 12/09/20 08:16 SP [id number]) Cardio Equipment Upper Body Ergometer (UBE) Duration (Minutes) 6 RPM 120 Seat Position 13 Other fwd/backward 1 min each direction Therapeutic Exercises Sidelying Exercises 3 Sidelying Exercise Name abduction AROM Resistance AROM> #1DB Reps/Minutes 2x10 Comments to approx 132-143 deg 2 Sidelying Exercise Name ER w/ towel roll under arm Resistance #1 DB Reps/Minutes 2x10 Standing Exercises 9 Standing Exercise Name self STMs: interscap, UT, pec Equipment Used racquetball vs tennis ball at wall and theracane Reps/Minutes 3 min Comments good feedback response MWM scap or head turn/ nod 7 Standing Exercise Name shoulder extension Side bilateral Resistance L3 t band Reps/Minutes 2x10 Comments cued scap retraction/ depression 6 Standing Exercise Name t band IR w/towel under arm Side right Resistance L2 IR, L1 ER Reps/Minutes 2x10 5 Standing Exercise Name t band rows Side bilateral Resistance L3 Reps/Minutes 2x10 4 Standing Exercise Name t band shoulder flexion Side right Resistance 2 Reps/Minutes 2x10 Comments to 139 degrees 3 Standing Exercise Name t band adduction Side right Equipment Used #3 Reps/Minutes 2x10 2 Standing Exercise Name PNF D2 extension Resistance L1 Reps/Minutes 10 Comments unable to go through full rom (120 ABD) Manual Therapy Treatment Soft Tissue Mobilization 1 Body Location subscap/pec MFR/ occipitals/UT Mobilization Type Myofascial Release Intensity/Depth Moderate Body Position Hooklying Joint Mobilizations 1 Joint inferior glide and AP Grade II Body Position Supine Comments manual PT-OP-T Assessment and Plan Start: 10/06/20 07:42 Freq: Status: Active Protocol: Document 12/09/20 07:30 SP (Rec: 12/09/20 08:16 SP [id number]) Physical Therapy Assessment Goals Three Impairment Pain Short Term Goal (STG) Flynn will improve his shoulder strength and ROM so that he can wash his back without shoulder pain. 8/3: NOT MET STG Duration 4 weeks Csm Consultant Goal (LTG) Flynn will lift his arm over head without pain so that he can return to work without shoulder pain. 8/3: not met LTG Duration 8 weeks Two Impairment Strength Short Term Goal (STG) Flynn will improve his R shoulder strength to 4/5 in all planes. 8/3: NOT MET STG Duration 4 weeks Csm Consultant Goal (LTG) Flynn will lift 10# to shoulder height without an increase in shoulder pain. 8/ 3: NOT MET LTG Duration 6 weeks One Impairment ROM Short Term Goal (STG) Flynn will improve his shoulder flexion (active) to 160 degrees. 8/3: NOT MET STG Duration 4 weeks Assessment Summary Assessment Pt had good relief from self instruction on use of theracane and racquetball on walll for scap musculature. He was able to tolerate #1 DB during sidelying ther ex gaining ROM into ABD and muscle tiring during ER. Pt works hard during resisted ther ex with muscle tiring, painfree range with increase noted ROM. Occasional cues for scap stabilization eccentric> concentric motions. Physical Therapy Plan Frequency and Duration Frequency of Treatment 2x/Week Duration of Treatment 6 weeks Plan of Care Start Date 11/18/20 Plan of Care End Date 12/30/20 Therapeutic Interventions Therapeutic Interventions Home Exercise Program,Joint Mobilizations,Manual Therapy, Neuromuscular Re-education, Self-Care/Home Management, Therapeutic Activities, Therapeutic Exercises Modalities Cold Pack/Ice Massage,Electric Stimulation,Hot Packs Next Visit Focus/Plan Next Note Type Treatment Note Next Visit Plan Continue to progress HEP with icing as necessary
--- NOTE | 2020-12-12 11:57 | PT.OTN ---
Current Diagnoses Impingement syndrome of right shoulder (12/12/20) Strain of muscle(s) and tendon(s) of the rotator cuff of right shoulder, subsequent encounter (12/12/20) Physical Therapy Treatment Note PT-OP-A Visit Information Start: 10/06/20 07:42 Freq: Status: Active Protocol: Document 12/12/20 09:00 AMB (Rec: 12/12/20 10:12 AMB [id number]) Out-Patient Physical Therapy Visit Information Visit Information Visit Type Treatment Note Visit Start Time 09:00 Visit Stop Time 09:45 Total Visit Minutes 45 Visit Number 14 PT-OP-B Current Condition Start: 10/06/20 07:42 Freq: Status: Active Protocol: Document 10/06/20 09:00 AMB (Rec: 10/06/20 09:15 AMB [id number]) Current Condition History of Current Condition Onset Date 08/15/20 Current Complaints R shoulder pain History of Current Condition 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 Had a MRI at [facility], Per pt report showed bicep tendon tear and labrum tear per pt report. Considering surgery. Does have ankylosing spondylitis. Not currently working because has a 10# lifting restriction and they don' t have work that can accomodate that. R shoulder stiffness currently. Difficulty sleeping. 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 Treatment Goals Patient/Caregiver Goals Reduce R shoulder pain returnt to work. Prior Functional Status Baseline Function- ADL's Independent Baseline Function- Mobility Independent Current Functional Impairments (Reported) Functional Limitations- ADL's Difficult lifting arm, lifting objects even of light weight (groceries) Personal Factors Other Personal Factors That May Effect Ankylosing spondylitis Therapy/Recovery PT-OP-C Subjective Start: 10/06/20 07:42 Freq: Status: Active Protocol: Document 12/12/20 09:00 AMB (Rec: 12/12/20 11:57 AMB [email or web address]) OP-PT Subjective Patient Comments Patient Comments Pt states he has been approved for surgery. It is scheduled for first week of January. Going to be a biceps tendon repair, AC joint decompression and labral repair per pt. PT-OP-F Manual Assessment Start: 10/06/20 07:42 Freq: Status: Active Protocol: Document 10/06/20 09:00 AMB (Rec: 10/07/20 08:58 AMB [email or web address]) Manual Assessments Other Manual Assessments Other Manual Assessments Tenderness at acromion, attachment of long head of biceps, and throughout scapular muscles and upper traps. PT-OP-J Posture/Palpation/Skin Start: 10/06/20 07:42 Freq: Status: Active Protocol: Document 10/06/20 09:00 AMB (Rec: 10/07/20 08:58 AMB [email or web address]) Posture Evaluation Comments Posture Comments Flat lumbar and thoracic spine PT-OP-K Range of Motion Start: 10/06/20 07:42 Freq: Status: Active Protocol: Document 11/18/20 12:45 AMB (Rec: 11/18/20 15:07 AMB [email or web address]) Shoulder Goniometric Range of Motion Shoulder Right Active Flexion 110 Abduction 130 PT-OP-L Special Tests Start: 10/06/20 07:42 Freq: Status: Active Protocol: Document 10/06/20 09:00 AMB (Rec: 10/07/20 08:58 AMB [email or web address]) Special Tests Shoulder Special Tests Neer Impingement Test Results - [place] Codey Impingement Test Results + PT-OP-M Strength Start: 10/06/20 07:42 Freq: Status: Active Protocol: Document 11/18/20 12:45 AMB (Rec: 11/18/20 15:07 AMB [email or web address]) Shoulder Strength Shoulder Manual Muscle Testing Right External Rotation 3+ Fair+ Internal Rotation 3+ Fair+ PT-OP-Q Treatments Start: 10/06/20 07:42 Freq: Status: Active Protocol: Document 12/12/20 09:00 AMB (Rec: 12/12/20 11:57 AMB [email or web address]) Cardio Equipment Upper Body Ergometer (UBE) Duration (Minutes) 7 RPM 120 Seat Position 13 Other fwd/backward 1 min each direction Therapeutic Exercises Sidelying Exercises 3 Sidelying Exercise Name abduction AROM Resistance #1DB Reps/Minutes 2x10 Comments to approx 140 deg 2 Sidelying Exercise Name ER w/ towel roll under arm Resistance #1 DB Reps/Minutes 2x10 Standing Exercises 7 Standing Exercise Name shoulder extension Side bilateral Resistance L3 t band Reps/Minutes 2x10 Comments cued scap retraction/ depression 6 Standing Exercise Name t band IR w/towel under arm Side right Resistance L2 IR, L1 ER Reps/Minutes 2x10 5 Standing Exercise Name t band rows Side bilateral Resistance L3 Reps/Minutes 2x10 2 Standing Exercise Name PNF D2 extension Resistance L1 Reps/Minutes 10 Comments unable to go through full rom (120 ABD) Manual Therapy Treatment Soft Tissue Mobilization 1 Body Location subscap/pec MFR/ occipitals/UT Mobilization Type Myofascial Release Intensity/Depth Moderate Body Position Hooklying Joint Mobilizations 1 Joint inferior glide and AP Grade III Body Position Supine Comments manual PT-OP-T Assessment and Plan Start: 10/06/20 07:42 Freq: Status: Active Protocol: Document 12/12/20 09:00 AMB (Rec: 12/12/20 11:57 AMB [email or web address]) Physical Therapy Assessment Goals Three Impairment Pain Short Term Goal (STG) Flynn will improve his shoulder strength and ROM so that he can wash his back without shoulder pain. 8/3: NOT MET STG Duration 4 weeks Settlement Clerk Goal (LTG) Flynn will lift his arm over head without pain so that he can return to work without shoulder pain. 8/3: not met LTG Duration 8 weeks Two Impairment Strength Short Term Goal (STG) Flynn will improve his R shoulder strength to 4/5 in all planes. 8/3: NOT MET STG Duration 4 weeks Senior Care Goal (LTG) Flynn will lift 10# to shoulder height without an increase in shoulder pain. 8/ 3: NOT MET LTG Duration 6 weeks One Impairment ROM Short Term Goal (STG) Flynn will improve his shoulder flexion (active) to 160 degrees. 8/3: NOT MET STG Duration 4 weeks Assessment Summary Assessment Flynn states he can't afford a theracane yet. He had significantly improve ROM for flexion at the end of today's session. Continues to fatigue quickly with ER strengthening . Physical Therapy Plan Next Visit Focus/Plan Next Note Type Treatment Note Next Visit Plan Consider progressing PNF diagonals if tolerated next visit.
--- NOTE | 2020-12-15 13:32 | PT.OTN ---
Current Diagnoses Impingement syndrome of right shoulder (12/15/20) Strain of muscle(s) and tendon(s) of the rotator cuff of right shoulder, subsequent encounter (12/15/20) Physical Therapy Treatment Note PT-OP-A Visit Information Start: 10/06/20 07:42 Freq: Status: Active Protocol: Document 12/15/20 12:45 AMB (Rec: 12/15/20 13:31 AMB [id number]) Out-Patient Physical Therapy Visit Information Visit Information Visit Type Treatment Note Visit Start Time 12:45 Visit Stop Time 13:30 Total Visit Minutes 45 Visit Number 15 PT-OP-B Current Condition Start: 10/06/20 07:42 Freq: Status: Active Protocol: Document 10/06/20 09:00 AMB (Rec: 10/06/20 09:15 AMB [id number]) Current Condition History of Current Condition Onset Date 08/15/20 Current Complaints R shoulder pain History of Current Condition 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 Had a MRI at [facility], Per pt report showed bicep tendon tear and labrum tear per pt report. Considering surgery. Does have ankylosing spondylitis. Not currently working because has a 10# lifting restriction and they don' t have work that can accomodate that. R shoulder stiffness currently. Difficulty sleeping. 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 Treatment Goals Patient/Caregiver Goals Reduce R shoulder pain returnt to work. Prior Functional Status Baseline Function- ADL's Independent Baseline Function- Mobility Independent Current Functional Impairments (Reported) Functional Limitations- ADL's Difficult lifting arm, lifting objects even of light weight (groceries) Personal Factors Other Personal Factors That May Effect Ankylosing spondylitis Therapy/Recovery PT-OP-C Subjective Start: 10/06/20 07:42 Freq: Status: Active Protocol: Document 12/15/20 12:45 AMB (Rec: 12/15/20 13:31 AMB [id number]) OP-PT Subjective Patient Comments Patient Comments Pt states his shoulder is doing ok today. PT-OP-F Manual Assessment Start: 10/06/20 07:42 Freq: Status: Active Protocol: Document 10/06/20 09:00 AMB (Rec: 10/07/20 08:58 AMB [email or web address]) Manual Assessments Other Manual Assessments Other Manual Assessments Tenderness at acromion, attachment of long head of biceps, and throughout scapular muscles and upper traps. PT-OP-J Posture/Palpation/Skin Start: 10/06/20 07:42 Freq: Status: Active Protocol: Document 10/06/20 09:00 AMB (Rec: 10/07/20 08:58 AMB [email or web address]) Posture Evaluation Comments Posture Comments Flat lumbar and thoracic spine PT-OP-K Range of Motion Start: 10/06/20 07:42 Freq: Status: Active Protocol: Document 11/18/20 12:45 AMB (Rec: 11/18/20 15:07 AMB [email or web address]) Shoulder Goniometric Range of Motion Shoulder Right Active Flexion 110 Abduction 130 PT-OP-L Special Tests Start: 10/06/20 07:42 Freq: Status: Active Protocol: Document 10/06/20 09:00 AMB (Rec: 10/07/20 08:58 AMB [email or web address]) Special Tests Shoulder Special Tests Neer Impingement Test Results - [place] Codey Impingement Test Results + PT-OP-M Strength Start: 10/06/20 07:42 Freq: Status: Active Protocol: Document 11/18/20 12:45 AMB (Rec: 11/18/20 15:07 AMB [email or web address]) Shoulder Strength Shoulder Manual Muscle Testing Right External Rotation 3+ Fair+ Internal Rotation 3+ Fair+ PT-OP-Q Treatments Start: 10/06/20 07:42 Freq: Status: Active Protocol: Document 12/15/20 12:45 AMB (Rec: 12/15/20 13:31 AMB [id number]) Cardio Equipment Upper Body Ergometer (UBE) Duration (Minutes) 7 RPM 120 Seat Position 13 Other fwd/backward 1 min each direction Therapeutic Exercises Sidelying Exercises 3 Sidelying Exercise Name abduction AROM Resistance #2DB Reps/Minutes 2x10 Comments to approx 140 deg 2 Sidelying Exercise Name ER w/ towel roll under arm Resistance #2 DB Reps/Minutes 2x10 Standing Exercises 7 Standing Exercise Name shoulder extension Side bilateral Resistance L3 t band Reps/Minutes 2x10 Comments cued scap retraction/ depression 6 Standing Exercise Name t band IR w/towel under arm Side right Resistance L3 IR, L1 ER Reps/Minutes 2x10 5 Standing Exercise Name t band rows Side bilateral Resistance L3 Reps/Minutes 2x10 2 Standing Exercise Name PNF D2 extension Resistance L1 Reps/Minutes 10 Comments unable to go through full rom (120 ABD) 1 Standing Exercise Name PNF D1 extension Side right Resistance L1 Reps/Minutes 10 Manual Therapy Treatment Soft Tissue Mobilization 1 Body Location subscap/pec MFR/ occipitals/UT Mobilization Type Myofascial Release Intensity/Depth Moderate Body Position Hooklying Joint Mobilizations 1 Joint inferior glide and AP Grade III Body Position Supine Comments manual PT-OP-T Assessment and Plan Start: 10/06/20 07:42 Freq: Status: Active Protocol: Document 12/15/20 12:45 AMB (Rec: 12/15/20 13:31 AMB [id number]) Physical Therapy Assessment Goals Three Impairment Pain Short Term Goal (STG) Flynn will improve his shoulder strength and ROM so that he can wash his back without shoulder pain. 8/3: NOT MET STG Duration 4 weeks Half-Way Goal (LTG) Flynn will lift his arm over head without pain so that he can return to work without shoulder pain. 8/3: not met LTG Duration 8 weeks Two Impairment Strength Short Term Goal (STG) Flynn will improve his R shoulder strength to 4/5 in all planes. 8/3: NOT MET STG Duration 4 weeks Half-Way Goal (LTG) Flynn will lift 10# to shoulder height without an increase in shoulder pain. 8/ 3: NOT MET LTG Duration 6 weeks One Impairment ROM Short Term Goal (STG) Flynn will improve his shoulder flexion (active) to 160 degrees. 8/3: NOT MET STG Duration 4 weeks Assessment Summary Assessment Flynn states his mattress makes his hips hurt so he has been sleeping on his couch and if he sleeps on his painful shoulder it is still quite painful. Tolerated more theraband exercises today. Physical Therapy Plan Next Visit Focus/Plan Next Note Type Treatment Note Next Visit Plan Consider t band exercises next visit.
--- NOTE | 2020-12-19 13:00 | PT.OTN ---
Current Diagnoses Impingement syndrome of right shoulder (12/19/20) Strain of muscle(s) and tendon(s) of the rotator cuff of right shoulder, subsequent encounter (12/19/20) Physical Therapy Treatment Note PT-OP-A Visit Information Start: 10/06/20 07:42 Freq: Status: Active Protocol: Document 12/19/20 12:17 SP (Rec: 12/19/20 14:07 SP [id number]) Out-Patient Physical Therapy Visit Information Visit Information Visit Type Treatment Note Visit Start Time 12:17 Visit Stop Time 13:00 Total Visit Minutes 43 Visit Number 16 Number of REACTOR SERVICE OPERATOR Visits 1 PT-OP-B Current Condition Start: 10/06/20 07:42 Freq: Status: Active Protocol: Document 10/06/20 09:00 AMB (Rec: 10/06/20 09:15 AMB [id number]) Current Condition History of Current Condition Onset Date 08/15/20 Current Complaints R shoulder pain History of Current Condition 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 Had a MRI at [facility], Per pt report showed bicep tendon tear and labrum tear per pt report. Considering surgery. Does have ankylosing spondylitis. Not currently working because has a 10# lifting restriction and they don' t have work that can accomodate that. R shoulder stiffness currently. Difficulty sleeping. 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 Treatment Goals Patient/Caregiver Goals Reduce R shoulder pain returnt to work. Prior Functional Status Baseline Function- ADL's Independent Baseline Function- Mobility Independent Current Functional Impairments (Reported) Functional Limitations- ADL's Difficult lifting arm, lifting objects even of light weight (groceries) Personal Factors Other Personal Factors That May Effect Ankylosing spondylitis Therapy/Recovery PT-OP-C Subjective Start: 10/06/20 07:42 Freq: Status: Active Protocol: Document 12/19/20 12:17 SP (Rec: 12/19/20 14:07 SP [id number]) OP-PT Subjective Patient Comments Patient Comments Pt reports has surgery scheduled for Jan 22. Still has pain especially when performs IR/ ER but doing well with other HEP. Wants to continue with strengthening to help support recovery progress after surgery. Patient Reported Progress Same PT-OP-F Manual Assessment Start: 10/06/20 07:42 Freq: Status: Active Protocol: Document 10/06/20 09:00 AMB (Rec: 10/07/20 08:58 AMB [email or web address]) Manual Assessments Other Manual Assessments Other Manual Assessments Tenderness at acromion, attachment of long head of biceps, and throughout scapular muscles and upper traps. PT-OP-J Posture/Palpation/Skin Start: 10/06/20 07:42 Freq: Status: Active Protocol: Document 10/06/20 09:00 AMB (Rec: 10/07/20 08:58 AMB [email or web address]) Posture Evaluation Comments Posture Comments Flat lumbar and thoracic spine PT-OP-K Range of Motion Start: 10/06/20 07:42 Freq: Status: Active Protocol: Document 11/18/20 12:45 AMB (Rec: 11/18/20 15:07 AMB [email or web address]) Shoulder Goniometric Range of Motion Shoulder Right Active Flexion 110 Abduction 130 PT-OP-L Special Tests Start: 10/06/20 07:42 Freq: Status: Active Protocol: Document 10/06/20 09:00 AMB (Rec: 10/07/20 08:58 AMB [email or web address]) Special Tests Shoulder Special Tests Neer Impingement Test Results - Mills Codey Impingement Test Results + PT-OP-M Strength Start: 10/06/20 07:42 Freq: Status: Active Protocol: Document 11/18/20 12:45 AMB (Rec: 11/18/20 15:07 AMB [email or web address]) Shoulder Strength Shoulder Manual Muscle Testing Right External Rotation 3+ Fair+ Internal Rotation 3+ Fair+ PT-OP-Q Treatments Start: 10/06/20 07:42 Freq: Status: Active Protocol: Document 12/19/20 12:17 SP (Rec: 12/19/20 14:07 SP [id number]) Therapeutic Exercises Sidelying Exercises 3 Sidelying Exercise Name abduction AROM Resistance #2DB Reps/Minutes 2x10 Comments to approx 153- 154 deg 2 Sidelying Exercise Name ER w/ towel roll under arm Resistance #2 DB Reps/Minutes 2x10 1 Sidelying Exercise Name open book Side right Reps/Minutes x10 Standing Exercises Lateral wall walking Standing Exercise Name added to HEP Side bilateral Resistance Tb #1 Reps/Minutes 10 ft x1 lap punch OH flexion & ABD Standing Exercise Name added to HEP Side right Resistance TB #1 Reps/Minutes x10 reps each Comments cued level shlds, no UT recruitment 7 Standing Exercise Name shoulder extension Side bilateral Resistance L3 t band Reps/Minutes 2x10 Comments cued scap retraction/ depression eccentric directioning 6 Standing Exercise Name t band IR w/towel under arm Side right Resistance L3 IR, ER (little pinchy end range IR/ initiation ER movement) Reps/Minutes 2x10 Comments cued scap retraction/ depression eccentric directioning 5 Standing Exercise Name t band rows Side bilateral Resistance L3 Reps/Minutes 2x10 Comments cued scap retraction/ depression eccentric directioning Manual Therapy Treatment Joint Mobilizations 1 Joint inferior glide and AP Direction R Grade II Body Position Supine Comments manual, good response then PROM FF, ABD, ER PT-OP-T Assessment and Plan Start: 10/06/20 07:42 Freq: Status: Active Protocol: Document 12/19/20 12:17 SP (Rec: 12/19/20 14:07 SP [id number]) Physical Therapy Assessment Goals Three Impairment Pain Short Term Goal (STG) Flynn will improve his shoulder strength and ROM so that he can wash his back without shoulder pain. 8/3: NOT MET STG Duration 4 weeks Intermediate Goal (LTG) Flynn will lift his arm over head without pain so that he can return to work without shoulder pain. 8/3: not met LTG Duration 8 weeks Two Impairment Strength Short Term Goal (STG) Flynn will improve his R shoulder strength to 4/5 in all planes. 8/3: NOT MET STG Duration 4 weeks Processing Tech Goal (LTG) Flynn will lift 10# to shoulder height without an increase in shoulder pain. 8/ 3: NOT MET LTG Duration 6 weeks One Impairment ROM Short Term Goal (STG) Flynn will improve his shoulder flexion (active) to 160 degrees. 8/3: NOT MET STG Duration 4 weeks Assessment Summary Assessment Pt progressed in ROM during strengthening ex in sidelying ABD 14 deg. Pt required cuing for scap retraction/ depression stabilization during standing TB ex, used mirror for self corrections feedback. Tolerated just tightness at end range OH FF, ABD arching ROM and CC punch same directions to HEP #1 TB. Physical Therapy Plan Frequency and Duration Frequency of Treatment 2x/Week Duration of Treatment 6 weeks Plan of Care Start Date 11/18/20 Plan of Care End Date 09/14/21 Therapeutic Interventions Therapeutic Interventions Home Exercise Program,Joint Mobilizations,Manual Therapy, Neuromuscular Re-education, Self-Care/Home Management, Therapeutic Activities, Therapeutic Exercises Modalities Cold Pack/Ice Massage,Electric Stimulation,Hot Packs Next Visit Focus/Plan Next Note Type Treatment Note Next Visit Plan recheck tolerance to TB HEP, initiated FF, ABD arch ROM and CC punch OH at side and forward.
--- NOTE | 2020-12-23 16:06 | PT.OTN ---
Current Diagnoses Impingement syndrome of right shoulder (12/23/20) Strain of muscle(s) and tendon(s) of the rotator cuff of right shoulder, subsequent encounter (12/23/20) Physical Therapy Treatment Note PT-OP-A Visit Information Start: 10/06/20 07:42 Freq: Status: Active Protocol: Document 12/23/20 13:45 AMB (Rec: 12/23/20 15:49 AMB [id number]) Out-Patient Physical Therapy Visit Information Visit Information Visit Type Treatment Note Visit Start Time 13:45 Visit Stop Time 14:30 Total Visit Minutes 43 Visit Number 17 PT-OP-B Current Condition Start: 10/06/20 07:42 Freq: Status: Active Protocol: Document 10/06/20 09:00 AMB (Rec: 10/06/20 09:15 AMB [id number]) Current Condition History of Current Condition Onset Date 08/15/20 Current Complaints R shoulder pain History of Current Condition 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 Had a MRI at [facility], Per pt report showed bicep tendon tear and labrum tear per pt report. Considering surgery. Does have ankylosing spondylitis. Not currently working because has a 10# lifting restriction and they don' t have work that can accomodate that. R shoulder stiffness currently. Difficulty sleeping. 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 Treatment Goals Patient/Caregiver Goals Reduce R shoulder pain returnt to work. Prior Functional Status Baseline Function- ADL's Independent Baseline Function- Mobility Independent Current Functional Impairments (Reported) Functional Limitations- ADL's Difficult lifting arm, lifting objects even of light weight (groceries) Personal Factors Other Personal Factors That May Effect Ankylosing spondylitis Therapy/Recovery PT-OP-C Subjective Start: 10/06/20 07:42 Freq: Status: Active Protocol: Document 12/23/20 13:45 AMB (Rec: 12/23/20 16:06 AMB [email or web address]) OP-PT Subjective Patient Comments Patient Comments Flynn is feeling a little extra sore today since adding in overhead exercises. PT-OP-F Manual Assessment Start: 10/06/20 07:42 Freq: Status: Active Protocol: Document 10/06/20 09:00 AMB (Rec: 10/07/20 08:58 AMB [email or web address]) Manual Assessments Other Manual Assessments Other Manual Assessments Tenderness at acromion, attachment of long head of biceps, and throughout scapular muscles and upper traps. PT-OP-J Posture/Palpation/Skin Start: 10/06/20 07:42 Freq: Status: Active Protocol: Document 10/06/20 09:00 AMB (Rec: 10/07/20 08:58 AMB [email or web address]) Posture Evaluation Comments Posture Comments Flat lumbar and thoracic spine PT-OP-K Range of Motion Start: 10/06/20 07:42 Freq: Status: Active Protocol: Document 11/18/20 12:45 AMB (Rec: 11/18/20 15:07 AMB [email or web address]) Shoulder Goniometric Range of Motion Shoulder Right Active Flexion 110 Abduction 130 PT-OP-L Special Tests Start: 10/06/20 07:42 Freq: Status: Active Protocol: Document 10/06/20 09:00 AMB (Rec: 10/07/20 08:58 AMB [email or web address]) Special Tests Shoulder Special Tests Neer Impingement Test Results - Mills Codey Impingement Test Results + PT-OP-M Strength Start: 10/06/20 07:42 Freq: Status: Active Protocol: Document 11/18/20 12:45 AMB (Rec: 11/18/20 15:07 AMB [email or web address]) Shoulder Strength Shoulder Manual Muscle Testing Right External Rotation 3+ Fair+ Internal Rotation 3+ Fair+ PT-OP-Q Treatments Start: 10/06/20 07:42 Freq: Status: Active Protocol: Document 12/23/20 13:45 AMB (Rec: 12/23/20 16:06 AMB [email or web address]) Therapeutic Exercises Supine Exercises 2 Supine Exercise Name shoulder flexion AROM and then overpressure Reps/Minutes 30x3 Prone Exercises 1 Prone Exercise Name I, Y Reps/Minutes 10 Comments AROM only Standing Exercises Lateral wall walking Standing Exercise Name added to HEP Side bilateral Resistance Tb #1 Reps/Minutes 10 ft x1 lap punch OH flexion & ABD Standing Exercise Name added to HEP Side right Resistance AROM only Reps/Minutes x10 reps each Comments cued level shlds, no UT recruitment Manual Therapy Treatment Soft Tissue Mobilization 2 Body Location PROM all planes Comments then alternating isometrics at 90 degrees flexion 1 Body Location subscap/pec MFR/ occipitals/UT Mobilization Type Myofascial Release Intensity/Depth Moderate Body Position Hooklying Joint Mobilizations 1 Joint inferior glide and AP Direction R Grade IV Body Position Supine Comments manual, good response then PROM FF, ABD, ER PT-OP-T Assessment and Plan Start: 10/06/20 07:42 Freq: Status: Active Protocol: Document 12/23/20 13:45 AMB (Rec: 12/23/20 16:06 AMB [email or web address]) Physical Therapy Assessment Goals Three Impairment Pain Short Term Goal (STG) Flynn will improve his shoulder strength and ROM so that he can wash his back without shoulder pain. 8/3: NOT MET STG Duration 4 weeks [facility] Goal (LTG) Flynn will lift his arm over head without pain so that he can return to work without shoulder pain. 8/3: not met LTG Duration 8 weeks Two Impairment Strength Short Term Goal (STG) Flynn will improve his R shoulder strength to 4/5 in all planes. 8/3: NOT MET STG Duration 4 weeks [facility] Goal (LTG) Flynn will lift 10# to shoulder height without an increase in shoulder pain. 8/ 3: NOT MET LTG Duration 6 weeks One Impairment ROM Short Term Goal (STG) Flynn will improve his shoulder flexion (active) to 160 degrees. 8/3: NOT MET STG Duration 4 weeks Assessment Summary Assessment Reduced resistance today of overhead work due to increased shoulder pain, but overall pt 's ROM is significantly improving. Continues to fatigue quickly. Physical Therapy Plan Next Visit Focus/Plan Next Note Type Treatment Note Next Visit Plan See if pt can add back in T band to overhead punch
--- NOTE | 2020-12-26 13:34 | PT.OTN ---
Current Diagnoses Impingement syndrome of right shoulder (12/26/20) Strain of muscle(s) and tendon(s) of the rotator cuff of right shoulder, subsequent encounter (12/26/20) Physical Therapy Treatment Note PT-OP-A Visit Information Start: 10/06/20 07:42 Freq: Status: Active Protocol: Document 12/26/20 10:30 AMB (Rec: 12/26/20 11:16 AMB [id number]) Out-Patient Physical Therapy Visit Information Visit Information Visit Type Progress Note Visit Start Time 10:30 Visit Stop Time 11:15 Total Visit Minutes 45 Visit Number 18 PT-OP-B Current Condition Start: 10/06/20 07:42 Freq: Status: Active Protocol: Document 10/06/20 09:00 AMB (Rec: 10/06/20 09:15 AMB [id number]) Current Condition History of Current Condition Onset Date 08/15/20 Current Complaints R shoulder pain History of Current Condition 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 Had a MRI at [facility], Per pt report showed bicep tendon tear and labrum tear per pt report. Considering surgery. Does have ankylosing spondylitis. Not currently working because has a 10# lifting restriction and they don' t have work that can accomodate that. R shoulder stiffness currently. Difficulty sleeping. 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 Treatment Goals Patient/Caregiver Goals Reduce R shoulder pain returnt to work. Prior Functional Status Baseline Function- ADL's Independent Baseline Function- Mobility Independent Current Functional Impairments (Reported) Functional Limitations- ADL's Difficult lifting arm, lifting objects even of light weight (groceries) Personal Factors Other Personal Factors That May Effect Ankylosing spondylitis Therapy/Recovery PT-OP-C Subjective Start: 10/06/20 07:42 Freq: Status: Active Protocol: Document 12/26/20 10:30 AMB (Rec: 12/26/20 11:16 AMB [id number]) OP-PT Subjective Patient Comments Patient Comments Flynn is stressed today because his son lost his car keys so he had to run here. PT-OP-F Manual Assessment Start: 10/06/20 07:42 Freq: Status: Active Protocol: Document 10/06/20 09:00 AMB (Rec: 10/07/20 08:58 AMB [email or web address]) Manual Assessments Other Manual Assessments Other Manual Assessments Tenderness at acromion, attachment of long head of biceps, and throughout scapular muscles and upper traps. PT-OP-J Posture/Palpation/Skin Start: 10/06/20 07:42 Freq: Status: Active Protocol: Document 10/06/20 09:00 AMB (Rec: 10/07/20 08:58 AMB [email or web address]) Posture Evaluation Comments Posture Comments Flat lumbar and thoracic spine PT-OP-K Range of Motion Start: 10/06/20 07:42 Freq: Status: Active Protocol: Document 12/26/20 10:39 AMB (Rec: 12/26/20 10:48 AMB [id number]) Shoulder Goniometric Range of Motion Shoulder Right Active Flexion 155 Abduction 175 Internal Rotation Behind Back (text) L1 Comments C7 PT-OP-L Special Tests Start: 10/06/20 07:42 Freq: Status: Active Protocol: Document 10/06/20 09:00 AMB (Rec: 10/07/20 08:58 AMB [email or web address]) Special Tests Shoulder Special Tests Neer Impingement Test Results - Mills Codey Impingement Test Results + PT-OP-M Strength Start: 10/06/20 07:42 Freq: Status: Active Protocol: Document 12/26/20 10:39 AMB (Rec: 12/26/20 10:48 AMB [id number]) Shoulder Strength Shoulder Manual Muscle Testing Right Flexion 4+ Good+ Adduction 4 Good External Rotation 4 Good Internal Rotation 4 Good PT-OP-Q Treatments Start: 10/06/20 07:42 Freq: Status: Active Protocol: Document 12/26/20 13:17 AMB (Rec: 12/26/20 13:22 AMB [email or web address]) Therapeutic Exercises Standing Exercises punch OH flexion & ABD Standing Exercise Name added to HEP Side right Resistance AROM only Reps/Minutes x10 reps each Comments cued level shlds, no UT recruitment 6 Standing Exercise Name t band IR w/towel under arm Side right Resistance L3 IR, ER Reps/Minutes 2x10 Comments cued scap retraction/ depression eccentric directioning 2 Standing Exercise Name PNF D2 extension Resistance L1 Reps/Minutes 10 1 Standing Exercise Name PNF D1 extension Side right Resistance L1 Reps/Minutes 10 Manual Therapy Treatment Soft Tissue Mobilization 2 Body Location PROM all planes PT-OP-T Assessment and Plan Start: 10/06/20 07:42 Freq: Status: Active Protocol: Document 12/26/20 10:30 AMB (Rec: 12/26/20 11:16 AMB [id number]) Physical Therapy Assessment Goals Three Impairment Pain Short Term Goal (STG) Flynn will improve his shoulder strength and ROM so that he can wash his back without shoulder pain. 12/26: NOT MET STG Duration 4 weeks Intermediate Goal (LTG) Flynn will lift his arm over head without pain so that he can return to work without shoulder pain. 12/26: not met LTG Duration 8 weeks Two Impairment Strength Short Term Goal (STG) Flynn will improve his R shoulder strength to 4/5 in all planes. STG Duration MET Intermediate Goal (LTG) Flynn will lift 10# to shoulder height without an increase in shoulder pain. : PROGRESS MADE: pt can lift once but repetition increases shoulder pain LTG Duration 6 weeks One Impairment ROM Short Term Goal (STG) Flynn will improve his shoulder flexion (active) to 160 degrees. STG Duration PROGRESS MADE 155d Assessment Summary Assessment Flynn's ROM has improved significantly since last progress note. He continues to have pain with resisted abduction and would continue to be challenged by repetitive lifting at work. He has successfully started working on overhead strengthening which he somewhat tolerates. He will benefit from continued physical therapy to progress his tolerance of increased repetition of strengthening exercises (especially over shoulder height). He is planning on having surgery in January. Physical Therapy Plan Frequency and Duration Frequency of Treatment 2x/Week Duration of Treatment 4 weeks Plan of Care Start Date 12/26/20 Plan of Care End Date 01/23/21 Therapeutic Interventions Therapeutic Interventions Home Exercise Program,Joint Mobilizations,Manual Therapy, Neuromuscular Re-education, Self-Care/Home Management, Therapeutic Activities, Therapeutic Exercises Modalities Cold Pack/Ice Massage,Electric Stimulation,Hot Packs Next Visit Focus/Plan Next Note Type Treatment Note Next Visit Plan Try to add resistance back into overhead exercises, if TB irritates could pt use can of soup at home etc?
--- NOTE | 2020-12-26 13:35 | PT.OPPOC ---
Physical, Occupational & Speech Therapy At [facility] Current Diagnoses Impingement syndrome of right shoulder (12/26/20) Strain of muscle(s) and tendon(s) of the rotator cuff of right shoulder, subsequent encounter (12/26/20) Visit Care Team Role Provider Type Ray Stover DO Primary Care Provider Non-Staff Specialty: Medical Address: [address] [place] [address], [place], [address] Fax: Email: Tylor Aguayo MD Attending Provider Non-Staff Referring Provider Specialty: Physical Medicine and Rehab Address: [facility], [place], [address] Email: Plan Of Care PT-OP-T Assessment and Plan Start: 10/06/20 07:42 Freq: Status: Active Protocol: Document 12/26/20 10:30 AMB (Rec: 12/26/20 11:16 AMB [id number]) Physical Therapy Assessment Goals Three Impairment Pain Short Term Goal (STG) Flynn will improve his shoulder strength and ROM so that he can wash his back without shoulder pain. 12/26: NOT MET STG Duration 4 weeks Dinkey Driver Goal (LTG) Flynn will lift his arm over head without pain so that he can return to work without shoulder pain. 12/26: not met LTG Duration 8 weeks Two Impairment Strength Short Term Goal (STG) Flynn will improve his R shoulder strength to 4/5 in all planes. STG Duration MET [facility] Goal (LTG) Flynn will lift 10# to shoulder height without an increase in shoulder pain. : PROGRESS MADE: pt can lift once but repetition increases shoulder pain LTG Duration 6 weeks One Impairment ROM Short Term Goal (STG) Flynn will improve his shoulder flexion (active) to 160 degrees. STG Duration PROGRESS MADE 155d Assessment Summary Assessment Flynn's ROM has improved significantly since last progress note. He continues to have pain with resisted abduction and would continue to be challenged by repetive lifting at work. He has successfully started working on overhead strengthening which he somewhat tolerates. He will benefit from continued physical therapy to progress his tolerance of increased repetition of strengthening exercises (especially over shoulder height). He is planning on having surgery in January. Physical Therapy Plan Frequency and Duration Frequency of Treatment 2x/Week Duration of Treatment 4 weeks Plan of Care Start Date 12/26/20 Plan of Care End Date 01/23/21 Therapeutic Interventions Therapeutic Interventions Home Exercise Program,Joint Mobilizations,Manual Therapy, Neuromuscular Re-education, Self-Care/Home Management, Therapeutic Activities, Therapeutic Exercises Modalities Cold Pack/Ice Massage,Electric Stimulation,Hot Packs Next Visit Focus/Plan Next Note Type Treatment Note Next Visit Plan Try to add resistance back into overhead exercises, if TB irritates could pt use can of soup at home etc? Plan of Care Dates Plan of Care Start Date 12/26/20 Plan of Care End Date 01/23/21 Electronically Signed by: Jaz Claire, PT 12/26/20 0006 Please Sign and Return: I have reviewed this Plan of Care and certify that the skilled therapy services above are required to meet the patient?s needs. Physician Signature Date Printed Name and Credentials Clinical Instructor Signature Printed Name and Credentials
--- NOTE | 2020-12-29 08:15 | PT.OTN ---
Current Diagnoses Impingement syndrome of right shoulder (12/29/20) Strain of muscle(s) and tendon(s) of the rotator cuff of right shoulder, subsequent encounter (12/29/20) Physical Therapy Treatment Note PT-OP-A Visit Information Start: 10/06/20 07:42 Freq: Status: Active Protocol: Document 12/29/20 07:32 SP (Rec: 12/29/20 08:18 SP [id number]) Out-Patient Physical Therapy Visit Information Visit Information Visit Type Treatment Note Visit Start Time 07:32 Visit Stop Time 08:15 Total Visit Minutes 43 Visit Number 19 Number of STEEL TESTER Visits 1 PT-OP-B Current Condition Start: 10/06/20 07:42 Freq: Status: Active Protocol: Document 10/06/20 09:00 AMB (Rec: 10/06/20 09:15 AMB [id number]) Current Condition History of Current Condition Onset Date 08/15/20 Current Complaints R shoulder pain History of Current Condition 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 Had a MRI at [facility], Per pt report showed bicep tendon tear and labrum tear per pt report. Considering surgery. Does have ankylosing spondylitis. Not currently working because has a 10# lifting restriction and they don' t have work that can accomodate that. R shoulder stiffness currently. Difficulty sleeping. 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 Treatment Goals Patient/Caregiver Goals Reduce R shoulder pain returnt to work. Prior Functional Status Baseline Function- ADL's Independent Baseline Function- Mobility Independent Current Functional Impairments (Reported) Functional Limitations- ADL's Difficult lifting arm, lifting objects even of light weight (groceries) Personal Factors Other Personal Factors That May Effect Ankylosing spondylitis Therapy/Recovery PT-OP-C Subjective Start: 10/06/20 07:42 Freq: Status: Active Protocol: Document 12/29/20 07:32 SP (Rec: 12/29/20 08:20 SP [id number]) OP-PT Subjective Patient Comments Patient Comments Pt reported little sore today. Stil having to walk to get to needed locations, hasn't found car keys yet, calling digital retoucher today to rekey doory . Compliant with HEP, still tiring and occasional tingling pinky or full hand. PT-OP-F Manual Assessment Start: 10/06/20 07:42 Freq: Status: Active Protocol: Document 10/06/20 09:00 AMB (Rec: 10/07/20 08:58 AMB [email or web address]) Manual Assessments Other Manual Assessments Other Manual Assessments Tenderness at acromion, attachment of long head of biceps, and throughout scapular muscles and upper traps. PT-OP-J Posture/Palpation/Skin Start: 10/06/20 07:42 Freq: Status: Active Protocol: Document 10/06/20 09:00 AMB (Rec: 10/07/20 08:58 AMB [email or web address]) Posture Evaluation Comments Posture Comments Flat lumbar and thoracic spine PT-OP-K Range of Motion Start: 10/06/20 07:42 Freq: Status: Active Protocol: Document 12/26/20 10:39 AMB (Rec: 12/26/20 10:48 AMB [id number]) Shoulder Goniometric Range of Motion Shoulder Right Active Flexion 155 Abduction 175 Internal Rotation Behind Back (text) L1 Comments C7 PT-OP-L Special Tests Start: 10/06/20 07:42 Freq: Status: Active Protocol: Document 10/06/20 09:00 AMB (Rec: 10/07/20 08:58 AMB [email or web address]) Special Tests Shoulder Special Tests Neer Impingement Test Results - Mills Codey Impingement Test Results + PT-OP-M Strength Start: 10/06/20 07:42 Freq: Status: Active Protocol: Document 12/26/20 10:39 AMB (Rec: 12/26/20 10:48 AMB [id number]) Shoulder Strength Shoulder Manual Muscle Testing Right Flexion 4+ Good+ Adduction 4 Good External Rotation 4 Good Internal Rotation 4 Good PT-OP-Q Treatments Start: 10/06/20 07:42 Freq: Status: Active Protocol: Document 12/29/20 07:32 SP (Rec: 12/29/20 08:18 SP [id number]) Cardio Equipment Upper Body Ergometer (UBE) Duration (Minutes) 7 RPM 120 Seat Position 11 Other fwd/backward 1 min each direction Therapeutic Exercises Prone Exercises 1 Prone Exercise Name I, Y Side right Resistance AROM only Reps/Minutes 8-10 each Comments cued pain free range- little shaky Sitting Exercises stretching Sitting Exercise Name UT and lev scap Side right Reps/Minutes 30 each Comments good feedback response Standing Exercises Median and ulnar nerve glide Standing Exercise Name added to HEP as needed Side right Reps/Minutes 5 reps x2 Comments good tolerance reduces tingling Lateral wall walking Standing Exercise Name Reviewed HEP Side bilateral Resistance Tb #1 Reps/Minutes 10 ft x1 lap punch OH flexion & ABD Standing Exercise Name Reviewed HEP Side right Resistance AROM only Reps/Minutes x10 reps each Comments cued level shlds, no UT recruitment 6 Standing Exercise Name w/towel under arm Side right Resistance L3 IR, ER Reps/Minutes 2x10 Comments cued scap retraction/ depression eccentric directioning 2 Standing Exercise Name PNF D2 extension Resistance L1 Reps/Minutes 10 1 Standing Exercise Name PNF D1 extension Side right Resistance L1 Reps/Minutes 10 Manual Therapy Treatment Soft Tissue Mobilization 2 Body Location PROM all planes Comments FF, ABD, IR, ER ABD 45 deg w/ IR and ER 1 Body Location subscap/pec MFR/ occipitals/UT Mobilization Type Myofascial Release Intensity/Depth Moderate Body Position Hooklying Joint Mobilizations 1 Joint inferior glide and AP Direction R Grade II Body Position Supine Comments manual, good response then PROM FF, ABD, ER PT-OP-T Assessment and Plan Start: 10/06/20 07:42 Freq: Status: Active Protocol: Document 12/29/20 07:32 SP (Rec: 12/29/20 08:18 SP [id number]) Physical Therapy Assessment Goals Three Impairment Pain Short Term Goal (STG) Flynn will improve his shoulder strength and ROM so that he can wash his back without shoulder pain. 910: NOT MET STG Duration 4 weeks [facility] Goal (LTG) Flynn will lift his arm over head without pain so that he can return to work without shoulder pain. 9/10: not met LTG Duration 8 weeks Two Impairment Strength Short Term Goal (STG) Flynn will improve his R shoulder strength to 4/5 in all planes. STG Duration MET Pawn Broker Goal (LTG) Flynn will lift 10# to shoulder height without an increase in shoulder pain. 9 10: PROGRESS MADE: pt can lift once but repetition increases shoulder pain LTG Duration 6 weeks One Impairment ROM Short Term Goal (STG) Flynn will improve his shoulder flexion (active) to 160 degrees. STG Duration PROGRESS MADE 155d Assessment Summary Assessment Pt responded well to HEP review, unable to add resistance to OH today continued AROM FF, noted little shaky and UT recruitment good self corrections with occasional cuing and mirror for self feedback, did have little ulnar nerve tingling during ER , performed initiated ulnar never glide with good feedback deminished. Pt stated does get tingling over all fingers so provided Median nerve glide for home as needed. Provided HO's for self recall. Physical Therapy Plan Frequency and Duration Frequency of Treatment 2x/Week Duration of Treatment 4 weeks Plan of Care Start Date 12/26/20 Plan of Care End Date 01/23/21 Therapeutic Interventions Therapeutic Interventions Home Exercise Program,Joint Mobilizations,Manual Therapy, Neuromuscular Re-education, Self-Care/Home Management, Therapeutic Activities, Therapeutic Exercises Modalities Cold Pack/Ice Massage,Electric Stimulation,Hot Packs Next Visit Focus/Plan Next Note Type Treatment Note Next Visit Plan Assess reponse to HEP review. POC: Try to add resistance back into overhead exercises next tx, if TB irritates could pt use can of soup at home etc?
--- NOTE | 2021-01-09 08:15 | PT.OTN ---
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 Had a MRI at [facility], Per pt report showed bicep tendon tear and labrum tear per pt report. Considering surgery. Does have ankylosing spondylitis. Not currently working because has a 10# lifting restriction and they don' t have work that can accomodate that. R shoulder stiffness currently. Difficulty sleeping. 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 Treatment Goals Patient/Caregiver Goals Reduce R shoulder pain returnt to work. Prior Functional Status Baseline Function- ADL's Independent Baseline Function- Mobility Independent Current Functional Impairments (Reported) Functional Limitations- ADL's Difficult lifting arm, lifting objects even of light weight (groceries) Personal Factors Other Personal Factors That May Effect Ankylosing spondylitis Therapy/Recovery PT-OP-C Subjective Start: 10/06/20 07:42 Freq: Status: Active Protocol: Document 01/09/21 07:32 SP (Rec: 01/09/21 08:17 SP [id number]) OP-PT Subjective Patient Comments Patient Comments Pt stated R shld very sore today. Had his pre op surgery 2 days ago, and surgery on Jan 22. PT-OP-F Manual Assessment Start: 10/06/20 07:42 Freq: Status: Active Protocol: Document 10/06/20 09:00 AMB (Rec: 10/07/20 08:58 AMB [email or web address]) Manual Assessments Other Manual Assessments Other Manual Assessments Tenderness at acromion, attachment of long head of biceps, and throughout scapular muscles and upper traps. PT-OP-J Posture/Palpation/Skin Start: 10/06/20 07:42 Freq: Status: Active Protocol: Document 10/06/20 09:00 AMB (Rec: 10/07/20 08:58 AMB [email or web address]) Posture Evaluation Comments Posture Comments Flat lumbar and thoracic spine PT-OP-K Range of Motion Start: 10/06/20 07:42 Freq: Status: Active Protocol: Document 12/26/20 10:39 AMB (Rec: 12/26/20 10:48 AMB [id number]) Shoulder Goniometric Range of Motion Shoulder Right Active Flexion 155 Abduction 175 Internal Rotation Behind Back (text) L1 Comments C7 PT-OP-L Special Tests Start: 10/06/20 07:42 Freq: Status: Active Protocol: Document 10/06/20 09:00 AMB (Rec: 10/07/20 08:58 AMB [email or web address]) Special Tests Shoulder Special Tests Neer Impingement Test Results - Mills Codey Impingement Test Results + PT-OP-M Strength Start: 10/06/20 07:42 Freq: Status: Active Protocol: Document 12/26/20 10:39 AMB (Rec: 12/26/20 10:48 AMB [id number]) Shoulder Strength Shoulder Manual Muscle Testing Right Flexion 4+ Good+ Adduction 4 Good External Rotation 4 Good Internal Rotation 4 Good PT-OP-Q Treatments Start: 10/06/20 07:42 Freq: Status: Active Protocol: Document 01/09/21 07:32 SP (Rec: 01/09/21 08:17 SP [id number]) Therapeutic Exercises Prone Exercises 1 Prone Exercise Name I, Y Side right Resistance AROM only Reps/Minutes 10 each Comments cued pain free range- noted little shaky last couple reps Sidelying Exercises 3 Sidelying Exercise Name abduction AROM Resistance #2> AROM due to pain Reps/Minutes 2x10 Comments 168 deg Standing Exercises Lateral wall walking Standing Exercise Name Reviewed HEP Side bilateral Resistance Tb #1 Reps/Minutes 10 ft x1 lap punch OH flexion & ABD Standing Exercise Name Reviewed HEP (OH punch, FF, ABD) Side right Resistance #2 DB Equipment Used mirror for improved self corrections Reps/Minutes x10 reps each Comments cued level shlds, reduce UT recruitment 2 Standing Exercise Name PNF D2 extension Resistance L1 Reps/Minutes 10 Comments occasional cue for scap retract/ depress toward neutral 1 Standing Exercise Name PNF D1 extension Side right Resistance L2 Reps/Minutes 10 Comments good self corrections for scap stab eccentric direction Manual Therapy Treatment Soft Tissue Mobilization 2 Body Location PROM all planes Comments FF, ABD, IR, ER ABD 45 deg w/ IR and ER 1 Body Location subscap/pec MFR/ occipitals/UT Mobilization Type Myofascial Release Intensity/Depth Moderate Body Position Hooklying Joint Mobilizations 1 Joint inferior glide and AP Direction R Grade II Body Position Supine Comments manual, good response Self-Care/Home Management Treatment Education Patient Education Joint Protection,Pain Management,Posture Other Education Discussed possible post op ex: hand and wrist AROM, pendulum , PROM elbow flex/ext using LUE. PT-OP-T Assessment and Plan Start: 10/06/20 07:42 Freq: Status: Active Protocol: Document 01/09/21 07:32 SP (Rec: 01/09/21 08:17 SP [id number]) Physical Therapy Assessment Goals Three Impairment Pain Short Term Goal (STG) Flynn will improve his shoulder strength and ROM so that he can wash his back without shoulder pain. 12/26: NOT MET STG Duration 4 weeks Senior Care Goal (LTG) Flynn will lift his arm over head without pain so that he can return to work without shoulder pain. 12/26: not met 01/09/21: GOAL MET: pt reports no pain just pressure/ pinchy at end feel AROM FF overhead. LTG Duration Goal MET Two Impairment Strength Short Term Goal (STG) Flynn will improve his R shoulder strength to 4/5 in all planes. STG Duration MET Senior Care Goal (LTG) Flynn will lift 10# to shoulder height without an increase in shoulder pain. : PROGRESS MADE: pt can lift once but repetition increases shoulder pain 01/08/21: progressing: pt tolerated #2 DB over head added to HEP. LTG Duration 6 weeks One Impairment ROM Short Term Goal (STG) Flynn will improve his shoulder flexion (active) to 160 degrees. 01/09/21: GOAL MET:170 deg AROM STG Duration Goal met 170d Assessment Summary Assessment Pt able to tolerated increased resistance this tx during sidelying R shld ER, D1 extension, OH press/ FF/ ABD # 2 DB. Improved AROM ABD and FF by 10 deg. Physical Therapy Plan Frequency and Duration Frequency of Treatment 2x/Week Duration of Treatment 4 weeks Plan of Care Start Date 12/26/20 Plan of Care End Date 01/23/21 Therapeutic Interventions Therapeutic Interventions Home Exercise Program,Joint Mobilizations,Manual Therapy, Neuromuscular Re-education, Self-Care/Home Management, Therapeutic Activities, Therapeutic Exercises Modalities Cold Pack/Ice Massage,Electric Stimulation,Hot Packs Next Visit Focus/Plan Next Note Type Treatment Note Next Visit Plan Assess reponse to added resistance sidelying and standing last tx. POC: progress resisted ex as tolerated.
--- NOTE | 2021-01-12 08:15 | PT.OTN ---
Current Diagnoses Impingement syndrome of right shoulder (01/12/21) Strain of muscle(s) and tendon(s) of the rotator cuff of right shoulder, subsequent encounter (01/12/21) Physical Therapy Treatment Note PT-OP-A Visit Information Start: 10/06/20 07:42 Freq: Status: Active Protocol: Document 01/12/21 07:33 SP (Rec: 01/12/21 08:21 SP [id number]) Out-Patient Physical Therapy Visit Information Visit Information Visit Type Treatment Note Visit Start Time 07:33 Visit Stop Time 08:15 Total Visit Minutes 42 Visit Number 21 Number of ARTILLERY OFFICER Visits 3 PT-OP-B Current Condition Start: 10/06/20 07:42 Freq: Status: Active Protocol: Document 10/06/20 09:00 AMB (Rec: 10/06/20 09:15 AMB [id number]) Current Condition History of Current Condition Onset Date 08/15/20 Current Complaints R shoulder pain History of Current Condition 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 Had a MRI at [facility], Per pt report showed bicep tendon tear and labrum tear per pt report. Considering surgery. Does have ankylosing spondylitis. Not currently working because has a 10# lifting restriction and they don' t have work that can accomodate that. R shoulder stiffness currently. Difficulty sleeping. 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 Treatment Goals Patient/Caregiver Goals Reduce R shoulder pain returnt to work. Prior Functional Status Baseline Function- ADL's Independent Baseline Function- Mobility Independent Current Functional Impairments (Reported) Functional Limitations- ADL's Difficult lifting arm, lifting objects even of light weight (groceries) Personal Factors Other Personal Factors That May Effect Ankylosing spondylitis Therapy/Recovery PT-OP-C Subjective Start: 10/06/20 07:42 Freq: Status: Active Protocol: Document 01/12/21 07:33 SP (Rec: 01/12/21 08:21 SP [id number]) OP-PT Subjective Patient Comments Patient Comments Pt states pretty tired today, woke up early and couldn't get back sleep. He states his R shld is sore today. Compliant with Tb exercises but hasn't been doing any OH light wt strengthening as doing in PT at home. PT-OP-F Manual Assessment Start: 10/06/20 07:42 Freq: Status: Active Protocol: Document 10/06/20 09:00 AMB (Rec: 10/07/20 08:58 AMB [email or web address]) Manual Assessments Other Manual Assessments Other Manual Assessments Tenderness at acromion, attachment of long head of biceps, and throughout scapular muscles and upper traps. PT-OP-J Posture/Palpation/Skin Start: 10/06/20 07:42 Freq: Status: Active Protocol: Document 10/06/20 09:00 AMB (Rec: 10/07/20 08:58 AMB [email or web address]) Posture Evaluation Comments Posture Comments Flat lumbar and thoracic spine PT-OP-K Range of Motion Start: 10/06/20 07:42 Freq: Status: Active Protocol: Document 12/26/20 10:39 AMB (Rec: 12/26/20 10:48 AMB [id number]) Shoulder Goniometric Range of Motion Shoulder Right Active Flexion 155 Abduction 175 Internal Rotation Behind Back (text) L1 Comments C7 PT-OP-L Special Tests Start: 10/06/20 07:42 Freq: Status: Active Protocol: Document 10/06/20 09:00 AMB (Rec: 10/07/20 08:58 AMB [email or web address]) Special Tests Shoulder Special Tests Neer Impingement Test Results - Mills Codey Impingement Test Results + PT-OP-M Strength Start: 10/06/20 07:42 Freq: Status: Active Protocol: Document 12/26/20 10:39 AMB (Rec: 12/26/20 10:48 AMB [id number]) Shoulder Strength Shoulder Manual Muscle Testing Right Flexion 4+ Good+ Adduction 4 Good External Rotation 4 Good Internal Rotation 4 Good PT-OP-Q Treatments Start: 10/06/20 07:42 Freq: Status: Active Protocol: Document 01/12/21 07:33 SP (Rec: 01/12/21 08:21 SP [id number]) Cardio Equipment Upper Body Ergometer (UBE) Duration (Minutes) 6 RPM 120 Seat Position 11 Height 2.5 Other fwd/backward 1 min each direction Therapeutic Exercises Sidelying Exercises 3 Sidelying Exercise Name abduction AROM Resistance #3> #2DB Reps/Minutes 2x10 Comments 174 deg- painfree, slight stretch discomfort long head bicep end feel 2 Sidelying Exercise Name Er Side right Resistance DB 2#> #3 Reps/Minutes 2x10 Comments good form, pain free, muscle tiring Standing Exercises incline push up Standing Exercise Name modified mid range off plinth (counter at home) Resistance added to HEP Equipment Used off plinth Reps/Minutes 2x10 Comments cued scap stab- pain free FF, ABD Standing Exercise Name FF (little discomfort posterior AC jt initial conc/ ecc), ABD painfree Side right Resistance TB #1 Equipment Used mirror for self corrections Reps/Minutes x5 reps each direction Comments cued no UT recruitment eccentric directioning punch OH flexion & ABD Standing Exercise Name Reviewed HEP (OH punch, FF, ABD) Side right Resistance #2 DB Equipment Used mirror for improved self corrections Reps/Minutes x20 reps each Comments cued level shlds, reduce UT recruitment Manual Therapy Treatment Soft Tissue Mobilization 2 Body Location PROM all planes Comments FF, ABD, IR, ER ABD 45 deg w/ IR and ER ABD 90 deg w/ IR and ER ABD 120 deg w/ IR and ER 1 Body Location subscap/pec MFR/ occipitals/UT Mobilization Type Myofascial Release Intensity/Depth Moderate Body Position Hooklying Joint Mobilizations 1 Joint inferior glide and AP Direction R Grade II Body Position Supine Comments manual, good response PT-OP-T Assessment and Plan Start: 10/06/20 07:42 Freq: Status: Active Protocol: Document 01/12/21 07:33 SP (Rec: 01/12/21 08:21 SP [id number]) Physical Therapy Assessment Goals Three Impairment Pain Short Term Goal (STG) Flynn will improve his shoulder strength and ROM so that he can wash his back without shoulder pain. 12/26: NOT MET 01/12/21 AROM Standing: FF: 180 deg ABD: 180 deg ER arm at side: 86deg IR behind back: T9 (slight discomfort) STG Duration 4 weeks (progressing) [facility] Goal (LTG) Flynn will lift his arm over head without pain so that he can return to work without shoulder pain. 12/26: not met 01/09/21: GOAL MET: pt reports no pain just pressure/ pinchy at end feel AROM FF overhead. LTG Duration Goal MET Two Impairment Strength Short Term Goal (STG) Flynn will improve his R shoulder strength to 4/5 in all planes. STG Duration MET [facility]pc Goal (LTG) Flynn will lift 10# to shoulder height without an increase in shoulder pain. : PROGRESS MADE: pt can lift once but repetition increases shoulder pain 01/08/21: progressing: pt tolerated #2 DB over head added to HEP. 01/12/21: pt able to lift 10# in basket straight OH hold for 25 sec before has to put down due to tiring weakness and min discomfort. Pt still not able to hold wt >10# away from body and off to right and hold > 1 min. LTG Duration 6 weeks One Impairment ROM Short Term Goal (STG) Flynn will improve his shoulder flexion (active) to 160 degrees. 01/09/21: GOAL MET:170 deg AROM STG Duration Goal met 170d Assessment Summary Assessment Pt tolerated increased progression wt OH with little discomfort, only able to maintain 20 sec due to tiring weakness and not full wt has to do at work. Pt tolerated modified range incline pushup off plinth added to HEP. Was able to increase dB resistance in sidelying this tx painfree , muscle tiring. ARTILLERY OFFICER educated continue DB strengthening at home. Physical Therapy Plan Frequency and Duration Frequency of Treatment 2x/Week Duration of Treatment 4 weeks Plan of Care Start Date 12/26/20 Plan of Care End Date 01/23/21 Therapeutic Interventions Therapeutic Interventions Home Exercise Program,Joint Mobilizations,Manual Therapy, Neuromuscular Re-education, Self-Care/Home Management, Therapeutic Activities, Therapeutic Exercises Modalities Cold Pack/Ice Massage,Electric Stimulation,Hot Packs Next Visit Focus/Plan Next Note Type Treatment Note Next Visit Plan Assess reponse to increase resistance standing and sidelying and modified incline pushup last tx. POC: progress resisted ex as tolerated.
--- NOTE | 2021-01-16 11:05 | PT.OTN ---
Current Diagnoses Impingement syndrome of right shoulder (01/16/21) Strain of muscle(s) and tendon(s) of the rotator cuff of right shoulder, subsequent encounter (01/16/21) Physical Therapy Treatment Note PT-OP-A Visit Information Start: 10/06/20 07:42 Freq: Status: Active Protocol: Document 01/16/21 07:30 AMB (Rec: 01/16/21 08:28 AMB [id number]) Out-Patient Physical Therapy Visit Information Visit Information Visit Type Treatment Note Visit Start Time 07:30 Visit Stop Time 08:15 Total Visit Minutes 45 Visit Number 22 PT-OP-B Current Condition Start: 10/06/20 07:42 Freq: Status: Active Protocol: Document 10/06/20 09:00 AMB (Rec: 10/06/20 09:15 AMB [id number]) Current Condition History of Current Condition Onset Date 08/15/20 Current Complaints R shoulder pain History of Current Condition 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 Had a MRI at [facility], Per pt report showed bicep tendon tear and labrum tear per pt report. Considering surgery. Does have ankylosing spondylitis. Not currently working because has a 10# lifting restriction and they don' t have work that can accomodate that. R shoulder stiffness currently. Difficulty sleeping. 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 Treatment Goals Patient/Caregiver Goals Reduce R shoulder pain returnt to work. Prior Functional Status Baseline Function- ADL's Independent Baseline Function- Mobility Independent Current Functional Impairments (Reported) Functional Limitations- ADL's Difficult lifting arm, lifting objects even of light weight (groceries) Personal Factors Other Personal Factors That May Effect Ankylosing spondylitis Therapy/Recovery PT-OP-C Subjective Start: 10/06/20 07:42 Freq: Status: Active Protocol: Document 01/16/21 07:30 AMB (Rec: 01/16/21 11:05 AMB [email or web address]) OP-PT Subjective Patient Comments Patient Comments Flynn is getting surgery next week, a little sore after last treatment in the evening but better after that. PT-OP-F Manual Assessment Start: 10/06/20 07:42 Freq: Status: Active Protocol: Document 10/06/20 09:00 AMB (Rec: 10/07/20 08:58 AMB [email or web address]) Manual Assessments Other Manual Assessments Other Manual Assessments Tenderness at acromion, attachment of long head of biceps, and throughout scapular muscles and upper traps. PT-OP-J Posture/Palpation/Skin Start: 10/06/20 07:42 Freq: Status: Active Protocol: Document 10/06/20 09:00 AMB (Rec: 10/07/20 08:58 AMB [email or web address]) Posture Evaluation Comments Posture Comments Flat lumbar and thoracic spine PT-OP-K Range of Motion Start: 10/06/20 07:42 Freq: Status: Active Protocol: Document 12/26/20 10:39 AMB (Rec: 12/26/20 10:48 AMB [id number]) Shoulder Goniometric Range of Motion Shoulder Right Active Flexion 155 Abduction 175 Internal Rotation Behind Back (text) L1 Comments C7 PT-OP-L Special Tests Start: 10/06/20 07:42 Freq: Status: Active Protocol: Document 10/06/20 09:00 AMB (Rec: 10/07/20 08:58 AMB [email or web address]) Special Tests Shoulder Special Tests Neer Impingement Test Results - Mills Codey Impingement Test Results + PT-OP-M Strength Start: 10/06/20 07:42 Freq: Status: Active Protocol: Document 12/26/20 10:39 AMB (Rec: 12/26/20 10:48 AMB [id number]) Shoulder Strength Shoulder Manual Muscle Testing Right Flexion 4+ Good+ Adduction 4 Good External Rotation 4 Good Internal Rotation 4 Good PT-OP-Q Treatments Start: 10/06/20 07:42 Freq: Status: Active Protocol: Document 01/16/21 07:30 AMB (Rec: 01/16/21 11:05 AMB [email or web address]) Cardio Equipment Upper Body Ergometer (UBE) Duration (Minutes) 6 RPM 120 Seat Position 11 Height 2.5 Other fwd/backward 1 min each direction Therapeutic Exercises Standing Exercises incline push up Standing Exercise Name modified mid range off plinth (counter at home) Resistance added to HEP Equipment Used off plinth Reps/Minutes 2x10 Comments cued scap stab- pain free FF, ABD Standing Exercise Name FF (little discomfort posterior AC jt initial conc/ ecc), ABD painfree Side right Resistance TB #1 Equipment Used mirror for self corrections Reps/Minutes x5 reps each direction Comments cued no UT recruitment eccentric directioning punch OH flexion & ABD Standing Exercise Name Reviewed HEP (OH punch, FF, ABD) Side right Resistance #2 DB Equipment Used mirror for improved self corrections Reps/Minutes x20 reps each Comments cued level shlds, reduce UT recruitment 2 Standing Exercise Name PNF D2 extension Resistance L1 Reps/Minutes 10 Comments occasional cue for scap retract/ depress toward neutral 1 Standing Exercise Name PNF D1 extension Side right Resistance L2 Reps/Minutes 10 Comments good self corrections for scap stab eccentric direction Manual Therapy Treatment Soft Tissue Mobilization 1 Body Location subscap/pec MFR/ occipitals/UT Mobilization Type Myofascial Release Intensity/Depth Moderate Body Position Hooklying Joint Mobilizations 1 Joint inferior glide and AP Direction R Grade II Body Position Supine Comments manual, good response PT-OP-T Assessment and Plan Start: 10/06/20 07:42 Freq: Status: Active Protocol: Document 01/16/21 07:30 AMB (Rec: 01/16/21 11:05 AMB [email or web address]) Physical Therapy Assessment Goals Three Impairment Pain Short Term Goal (STG) Flynn will improve his shoulder strength and ROM so that he can wash his back without shoulder pain. 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 01/09/21: GOAL MET: pt reports no pain just pressure/ pinchy at end feel AROM FF overhead. LTG Duration Goal MET Two Impairment Strength Short Term Goal (STG) Flynn will improve his R shoulder strength to 4/5 in all planes. STG Duration MET Surveillance Supervisor Goal (LTG) Flynn will lift 10# to shoulder height without an increase in shoulder pain. : PROGRESS MADE: pt can lift once but repetition increases shoulder pain 01/08/21: progressing: pt tolerated #2 DB over head added to HEP. 01/12/21: pt able to lift 10# in basket straight OH hold for 25 sec before has to put down due to tiring weakness and min discomfort. Pt still not able to hold wt >10# away from body and off to right and hold > 1 min. LTG Duration 6 weeks One Impairment ROM Short Term Goal (STG) Flynn will improve his shoulder flexion (active) to 160 degrees. 01/09/21: GOAL MET:170 deg AROM STG Duration Goal met 170d Assessment Summary Assessment Flynn continues to show improvement with his strength and ROM. Some pain with IR, reaching behind back and with end range abduction. Would still be challenged by overhead lifting of heavy weights (lifting 50#+ to return to work), still working more at 10# level in PT. Physical Therapy Plan Frequency and Duration Frequency of Treatment 2x/Week Duration of Treatment 4 weeks Plan of Care Start Date 12/26/20 Plan of Care End Date 01/23/21 Next Visit Focus/Plan Next Note Type Treatment Note Next Visit Plan Next appointment will be last appt before surgery, reassess ROM, strength, pain
--- NOTE | 2021-01-19 11:08 | PT.OTN ---
Current Diagnoses Impingement syndrome of right shoulder (01/19/21) Strain of muscle(s) and tendon(s) of the rotator cuff of right shoulder, subsequent encounter (01/19/21) Physical Therapy Treatment Note PT-OP-A Visit Information Start: 10/06/20 07:42 Freq: Status: Active Protocol: Document 01/19/21 07:30 AMB (Rec: 01/19/21 07:43 AMB [id number]) Out-Patient Physical Therapy Visit Information Visit Information Visit Type Treatment Note Visit Start Time 07:30 Visit Stop Time 08:15 Total Visit Minutes 45 Visit Number 23 PT-OP-B Current Condition Start: 10/06/20 07:42 Freq: Status: Active Protocol: Document 10/06/20 09:00 AMB (Rec: 10/06/20 09:15 AMB [id number]) Current Condition History of Current Condition Onset Date 08/15/20 Current Complaints R shoulder pain History of Current Condition 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 Had a MRI at [facility], Per pt report showed bicep tendon tear and labrum tear per pt report. Considering surgery. Does have ankylosing spondylitis. Not currently working because has a 10# lifting restriction and they don' t have work that can accomodate that. R shoulder stiffness currently. Difficulty sleeping. 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 Treatment Goals Patient/Caregiver Goals Reduce R shoulder pain returnt to work. Prior Functional Status Baseline Function- ADL's Independent Baseline Function- Mobility Independent Current Functional Impairments (Reported) Functional Limitations- ADL's Difficult lifting arm, lifting objects even of light weight (groceries) Personal Factors Other Personal Factors That May Effect Ankylosing spondylitis Therapy/Recovery PT-OP-C Subjective Start: 10/06/20 07:42 Freq: Status: Active Protocol: Document 01/19/21 07:30 AMB (Rec: 01/19/21 07:43 AMB [id number]) OP-PT Subjective Patient Comments Patient Comments Flynn is getting surgery on . Continues to be sore with sleeping. PT-OP-F Manual Assessment Start: 10/06/20 07:42 Freq: Status: Active Protocol: Document 10/06/20 09:00 AMB (Rec: 10/07/20 08:58 AMB [email or web address]) Manual Assessments Other Manual Assessments Other Manual Assessments Tenderness at acromion, attachment of long head of biceps, and throughout scapular muscles and upper traps. PT-OP-J Posture/Palpation/Skin Start: 10/06/20 07:42 Freq: Status: Active Protocol: Document 10/06/20 09:00 AMB (Rec: 10/07/20 08:58 AMB [email or web address]) Posture Evaluation Comments Posture Comments Flat lumbar and thoracic spine PT-OP-K Range of Motion Start: 10/06/20 07:42 Freq: Status: Active Protocol: Document 01/19/21 07:43 AMB (Rec: 01/19/21 07:56 AMB [id number]) Shoulder Goniometric Range of Motion Shoulder Right Active Flexion 175 Abduction 180 External Rotation at 90 degrees 90 Abduction Internal Rotation 70 Internal Rotation Behind Back (text) T12 Comments C7 PT-OP-L Special Tests Start: 10/06/20 07:42 Freq: Status: Active Protocol: Document 10/06/20 09:00 AMB (Rec: 10/07/20 08:58 AMB [email or web address]) Special Tests Shoulder Special Tests Neer Impingement Test Results - Mills Codey Impingement Test Results + PT-OP-M Strength Start: 10/06/20 07:42 Freq: Status: Active Protocol: Document 01/19/21 07:43 AMB (Rec: 01/19/21 07:56 AMB [id number]) Shoulder Strength Shoulder Manual Muscle Testing Right Flexion 4+ Good+ Adduction 4 Good External Rotation 4+ Good+ Internal Rotation 4 Good Elbow/Forearm Strength Elbow and Forearm Manual Muscle Testing Right Flexion (C6) 5 Normal Extension (C7) 4+ Good+ PT-OP-Q Treatments Start: 10/06/20 07:42 Freq: Status: Active Protocol: Document 01/19/21 07:30 AMB (Rec: 01/19/21 11:08 AMB [email or web address]) Therapeutic Exercises Sidelying Exercises 3 Sidelying Exercise Name abduction AROM Resistance #3> #2DB Reps/Minutes 2x10 Comments 174 deg- painfree, slight stretch discomfort long head bicep end feel 2 Sidelying Exercise Name Er Side right Resistance DB 2#> #3 Reps/Minutes 2x10 Comments good form, pain free, muscle tiring Standing Exercises incline push up Standing Exercise Name modified mid range off plinth (counter at home) Resistance added to HEP Equipment Used off plinth Reps/Minutes 2x10 Comments cued scap stab- pain free FF, ABD Standing Exercise Name FF (little discomfort posterior AC jt initial conc/ ecc), ABD painfree Side right Resistance TB #1 Equipment Used mirror for self corrections Reps/Minutes x5 reps each direction Comments cued no UT recruitment eccentric directioning punch OH flexion & ABD Standing Exercise Name Reviewed HEP (OH punch, FF, ABD) Side right Resistance #2 DB Equipment Used mirror for improved self corrections Reps/Minutes x20 reps each Comments cued level shlds, reduce UT recruitment Manual Therapy Treatment Soft Tissue Mobilization 2 Body Location PROM all planes Comments FF, ABD, IR, ER ABD 45 deg w/ IR and ER ABD 90 deg w/ IR and ER ABD 120 deg w/ IR and ER Joint Mobilizations 1 Joint inferior glide and AP Direction R Grade II Body Position Supine Comments manual, good response PT-OP-T Assessment and Plan Start: 10/06/20 07:42 Freq: Status: Active Protocol: Document 01/19/21 07:30 AMB (Rec: 01/19/21 11:08 AMB [email or web address]) Physical Therapy Assessment Goals Three Impairment Pain Short Term Goal (STG) Flynn will improve his shoulder strength and ROM so that he can wash his back without shoulder pain. 12/26: NOT MET 01/12/21 AROM Standing: FF: 180 deg ABD: 180 deg ER arm at side: 86deg IR behind back: T9 (slight discomfort) STG Duration 4 weeks (progressing) [facility] Goal (LTG) Flynn will lift his arm over head without pain so that he can return to work without shoulder pain. 01/09/21: GOAL MET: pt reports no pain just pressure/ pinchy at end feel AROM FF overhead. LTG Duration Goal MET Two Impairment Strength Short Term Goal (STG) Flynn will improve his R shoulder strength to 4/5 in all planes. STG Duration MET [facility] Goal (LTG) Flynn will lift 10# to shoulder height without an increase in shoulder pain. : PROGRESS MADE: pt can lift once but repetition increases shoulder pain 01/08/21: progressing: pt tolerated #2 DB over head added to HEP. 01/12/21: pt able to lift 10# in basket straight OH hold for 25 sec before has to put down due to tiring weakness and min discomfort. Pt still not able to hold wt >10# away from body and off to right and hold > 1 min. LTG Duration 6 weeks-progress made One Impairment ROM Short Term Goal (STG) Flynn will improve his shoulder flexion (active) to 160 degrees. 01/09/21: GOAL MET:170 deg AROM STG Duration Goal met 170d Assessment Summary Assessment Flynn has overall improved his range of motion quite well . He continues to have mild weakness and discomfort with resisted abduction, but otherwise is doing well. He is going to have surgery on due to continued pain with overhead and heavy lifting. Physical Therapy Plan Frequency and Duration Frequency of Treatment 2x/Week Duration of Treatment 4 weeks Plan of Care Start Date 12/26/20 Plan of Care End Date 01/23/21 Therapeutic Interventions Therapeutic Interventions Home Exercise Program,Joint Mobilizations,Manual Therapy, Neuromuscular Re-education, Self-Care/Home Management, Therapeutic Activities, Therapeutic Exercises Modalities Cold Pack/Ice Massage,Electric Stimulation,Hot Packs Next Visit Focus/Plan Next Note Type Re-Evaluation Next Visit Plan Recheck goals, ROM, strength after surgery.
--- NOTE | 2021-02-09 16:08 | PT.OPPOC ---
Physical, Occupational & Speech Therapy At [facility] Current Diagnoses Impingement syndrome of right shoulder (02/09/21) Strain of muscle(s) and tendon(s) of the rotator cuff of right shoulder, subsequent encounter (02/09/21) Visit Care Team Role Provider Type Ray Stover DO Primary Care Provider Non-Staff Specialty: Medical Address: [address] [place] [address], [place], [address] Fax: Email: Tylor Aguayo MD Attending Provider Non-Staff Referring Provider Specialty: Physical Medicine and Rehab Address: [facility] [address] [facility], [place], [address] Email: Plan Of Care PT-OP-T Assessment and Plan Start: 10/06/20 07:42 Freq: Status: Active Protocol: Document 02/09/21 14:30 AMB (Rec: 02/09/21 16:01 AMB [email or web address]) Physical Therapy Assessment Goals Three Impairment Pain Short Term Goal (STG) Flynn will improve his shoulder strength and ROM so that he can wash his back without shoulder pain. STG Duration 6 weeks Retirement Goal (LTG) Flynn will lift his arm over head without pain so that he can return to work without shoulder pain. LTG Duration 12 weeks Two Impairment Strength Short Term Goal (STG) Flynn will improve his R shoulder strength to 4/5 in all planes. STG Duration 6 weeks Retirement Goal (LTG) Flynn will lift 10# to shoulder height without an increase in shoulder pain. LTG Duration 12 weeks One Impairment ROM Short Term Goal (STG) Flynn will improve his shoulder flexion (active) to 160 degrees. STG Duration 6 weeks Assessment Summary Assessment Flynn is recovering from his recent surgery. He has been wearing his sling at all times other than showering and has been doing gentle pendulums. He was educated that he is allowed do gripping exercises and gentle wrist exercises and we started with PROM exercises. Physical Therapy Plan Frequency and Duration Frequency of Treatment 2x/Week Duration of Treatment 12 weeks Plan of Care Start Date 02/09/21 Plan of Care End Date 05/04/21 Therapeutic Interventions Therapeutic Interventions Home Exercise Program,Joint Mobilizations,Manual Therapy, Neuromuscular Re-education, Self-Care/Home Management, Therapeutic Activities, Therapeutic Exercises Modalities Cold Pack/Ice Massage,Electric Stimulation,Hot Packs Next Visit Focus/Plan Next Note Type Treatment Note Next Visit Plan Limited to 90 degrees flexion and abduction PROM, work on AAROM starting week 4. Plan of Care Dates Plan of Care Start Date 02/09/21 Plan of Care End Date 05/04/21 Electronically Signed by: Jaz Claire, PT 02/09/21 2580 Please Sign and Return: I have reviewed this Plan of Care and certify that the skilled therapy services above are required to meet the patient?s needs. Physician Signature Date Printed Name and Credentials Clinical Instructor Signature Printed Name and Credentials
--- NOTE | 2021-02-09 16:09 | PT.OTRE ---
Current Diagnoses Impingement syndrome of right shoulder (02/09/21) Strain of muscle(s) and tendon(s) of the rotator cuff of right shoulder, subsequent encounter (02/09/21) Visit Care Team Role Provider Type Ray Stover DO Primary Care Provider Non-Staff Specialty: Medical Address: [address], [address] Fax: Email: Tylor Aguayo MD Attending Provider Non-Staff Referring Provider Specialty: Physical Medicine and Rehab Address: [facility] [place], [address] Email: Physical Therapy Re-Evaluation PT-OP-A Visit Information Start: 10/06/20 07:42 Freq: Status: Active Protocol: Document 02/09/21 14:30 AMB (Rec: 02/09/21 16:01 AMB [email or web address]) Out-Patient Physical Therapy Visit Information Visit Information Visit Type Re-Evaluation Visit Start Time 14:30 Visit Stop Time 15:15 Total Visit Minutes 45 Visit Number 24 Precautions Precautions See protocol biceps tenodesis, labral repair and clavicle excisio non 01/22. note protocol states to wear sling for 4 weeks and allows elbow ROM but pt notes that he was told by surgeon to wear sling for 6 weeks and not to actively use elbow as he had more surgery that what was expected. 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 Had a MRI at [facility], Per pt report showed bicep tendon tear and labrum tear per pt report. Considering surgery. Does have ankylosing spondylitis. Not currently working because has a 10# lifting restriction and they don' t have work that can accomodate that. R shoulder stiffness currently. Difficulty sleeping. 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 Treatment Goals Patient/Caregiver Goals Reduce R shoulder pain returnt to work. Prior Functional Status Baseline Function- ADL's Independent Baseline Function- Mobility Independent Current Functional Impairments (Reported) Functional Limitations- ADL's Difficult lifting arm, lifting objects even of light weight (groceries) Personal Factors Other Personal Factors That May Effect Ankylosing spondylitis Therapy/Recovery PT-OP-C Subjective Start: 10/06/20 07:42 Freq: Status: Active Protocol: Document 02/09/21 14:30 AMB (Rec: 02/09/21 16:01 AMB [email or web address]) OP-PT Subjective Patient Comments Patient Comments Pt reports biceps tenodesis, labral repair and clavicle excisionon 01/22 PT-OP-F Manual Assessment Start: 10/06/20 07:42 Freq: Status: Active Protocol: Document 10/06/20 09:00 AMB (Rec: 10/07/20 08:58 AMB [email or web address]) Manual Assessments Other Manual Assessments Other Manual Assessments Tenderness at acromion, attachment of long head of biceps, and throughout scapular muscles and upper traps. PT-OP-J Posture/Palpation/Skin Start: 10/06/20 07:42 Freq: Status: Active Protocol: Document 10/06/20 09:00 AMB (Rec: 10/07/20 08:58 AMB [email or web address]) Posture Evaluation Comments Posture Comments Flat lumbar and thoracic spine PT-OP-K Range of Motion Start: 10/06/20 07:42 Freq: Status: Active Protocol: Document 02/09/21 14:30 AMB (Rec: 02/09/21 16:01 AMB [email or web address]) Shoulder Goniometric Range of Motion Shoulder Measured in Degrees Left Passive Flexion 60 Abduction 80 Elbow/Forearm Range of Motion Elbow/Forearm Measured in Degrees Left Active Elbow Extension (degrees) 15 PT-OP-L Special Tests Start: 10/06/20 07:42 Freq: Status: Active Protocol: Document 02/09/21 16:06 AMB (Rec: 02/09/21 16:06 AMB [email or web address]) Special Tests Shoulder Special Tests Neer Impingement Comments not performed due to precautions Mills Codey Impingement Comments not performed due to precautions PT-OP-M Strength Start: 10/06/20 07:42 Freq: Status: Active Protocol: Document 02/09/21 16:06 AMB (Rec: 02/09/21 16:06 AMB [email or web address]) Shoulder Strength Shoulder Manual Muscle Testing Left Comments not tested due to precautions PT-OP-Q Treatments Start: 10/06/20 07:42 Freq: Status: Active Protocol: Document 02/09/21 14:30 AMB (Rec: 02/09/21 16:04 AMB [email or web address]) Therapeutic Exercises Supine Exercises 3 Supine Exercise Name PROM- elbow extension Reps/Minutes 10 Comments limited by pain 2 Supine Exercise Name gripping, wrist flex/ext AROM Reps/Minutes 10 1 Supine Exercise Name PROM gentle shoulder flexion and abduction Reps/Minutes 10 Comments stopped at pain before 90 degrees limited by pain PT-OP-T Assessment and Plan Start: 10/06/20 07:42 Freq: Status: Active Protocol: Document 02/09/21 14:30 AMB (Rec: 02/09/21 16:01 AMB [email or web address]) Physical Therapy Assessment Goals Three Impairment Pain Short Term Goal (STG) Flynn will improve his shoulder strength and ROM so that he can wash his back without shoulder pain. STG Duration 6 weeks [facility] Goal (LTG) Flynn will lift his arm over head without pain so that he can return to work without shoulder pain. LTG Duration 12 weeks Two Impairment Strength Short Term Goal (STG) Flynn will improve his R shoulder strength to 4/5 in all planes. STG Duration 6 weeks Care Home Goal (LTG) Flynn will lift 10# to shoulder height without an increase in shoulder pain. LTG Duration 12 weeks One Impairment ROM Short Term Goal (STG) Flynn will improve his shoulder flexion (active) to 160 degrees. STG Duration 6 weeks Assessment Summary Assessment Flynn is recovering from his recent surgery. He has been wearing his sling at all times other than showering and has been doing gentle pendulums. He was educated that he is allowed do gripping exercises and gentle wrist exercises and we started with PROM exercises. Physical Therapy Plan Frequency and Duration Frequency of Treatment 2x/Week Duration of Treatment 12 weeks Plan of Care Start Date 02/09/21 Plan of Care End Date 05/04/21 Therapeutic Interventions Therapeutic Interventions Home Exercise Program,Joint Mobilizations,Manual Therapy, Neuromuscular Re-education, Self-Care/Home Management, Therapeutic Activities, Therapeutic Exercises Modalities Cold Pack/Ice Massage,Electric Stimulation,Hot Packs Next Visit Focus/Plan Next Note Type Treatment Note Next Visit Plan Limited to 90 degrees flexion and abduction PROM, work on AAROM starting week 4.
--- NOTE | 2021-02-16 15:32 | PT.OTN ---
Current Diagnoses Impingement syndrome of right shoulder (02/16/21) Strain of muscle(s) and tendon(s) of the rotator cuff of right shoulder, subsequent encounter (02/16/21) Physical Therapy Treatment Note PT-OP-A Visit Information Start: 10/06/20 07:42 Freq: Status: Active Protocol: Document 02/16/21 14:30 AMB (Rec: 02/16/21 15:32 AMB [email or web address]) Out-Patient Physical Therapy Visit Information Visit Information Visit Type Treatment Note Visit Start Time 14:30 Visit Stop Time 15:15 Total Visit Minutes 45 Visit Number 25 Precautions Precautions See protocol biceps tenodesis, labral repair and clavicle excisio non 01/22. note protocol states to wear sling for 4 weeks and allows elbow ROM but pt notes that he was told by surgeon to wear sling for 6 weeks and not to actively use elbow as he had more surgery that what was expected. 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 Had a MRI at [facility], Per pt report showed bicep tendon tear and labrum tear per pt report. Considering surgery. Does have ankylosing spondylitis. Not currently working because has a 10# lifting restriction and they don' t have work that can accomodate that. R shoulder stiffness currently. Difficulty sleeping. 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 Treatment Goals Patient/Caregiver Goals Reduce R shoulder pain returnt to work. Prior Functional Status Baseline Function- ADL's Independent Baseline Function- Mobility Independent Current Functional Impairments (Reported) Functional Limitations- ADL's Difficult lifting arm, lifting objects even of light weight (groceries) Personal Factors Other Personal Factors That May Effect Ankylosing spondylitis Therapy/Recovery PT-OP-C Subjective Start: 10/06/20 07:42 Freq: Status: Active Protocol: Document 02/16/21 14:30 AMB (Rec: 02/16/21 15:32 AMB [email or web address]) OP-PT Subjective Patient Comments Patient Comments Pt is continuing to have pain and stiffness that is limiting his sleep. Is wearing his sling. PT-OP-F Manual Assessment Start: 10/06/20 07:42 Freq: Status: Active Protocol: Document 10/06/20 09:00 AMB (Rec: 10/07/20 08:58 AMB [email or web address]) Manual Assessments Other Manual Assessments Other Manual Assessments Tenderness at acromion, attachment of long head of biceps, and throughout scapular muscles and upper traps. PT-OP-J Posture/Palpation/Skin Start: 10/06/20 07:42 Freq: Status: Active Protocol: Document 10/06/20 09:00 AMB (Rec: 10/07/20 08:58 AMB [email or web address]) Posture Evaluation Comments Posture Comments Flat lumbar and thoracic spine PT-OP-K Range of Motion Start: 10/06/20 07:42 Freq: Status: Active Protocol: Document 02/09/21 14:30 AMB (Rec: 02/09/21 16:01 AMB [email or web address]) Shoulder Goniometric Range of Motion Shoulder Left Passive Flexion 60 Abduction 80 Elbow/Forearm Range of Motion Elbow/Forearm Left Active Elbow Extension (degrees) 15 PT-OP-L Special Tests Start: 10/06/20 07:42 Freq: Status: Active Protocol: Document 02/09/21 16:06 AMB (Rec: 02/09/21 16:06 AMB [email or web address]) Special Tests Shoulder Special Tests Neer Impingement Comments not performed due to precautions [place] Impingement Comments not performed due to precautions PT-OP-M Strength Start: 10/06/20 07:42 Freq: Status: Active Protocol: Document 02/09/21 16:06 AMB (Rec: 02/09/21 16:06 AMB [email or web address]) Shoulder Strength Shoulder Manual Muscle Testing Left Comments not tested due to precautions PT-OP-Q Treatments Start: 10/06/20 07:42 Freq: Status: Active Protocol: Document 02/16/21 14:30 AMB (Rec: 02/16/21 15:32 AMB [email or web address]) Manual Therapy Treatment Soft Tissue Mobilization 3 Body Location gentle distal biceps; scap Intensity/Depth Moderate Body Position Hooklying 2 Body Location PROM all planes Comments FF, ABD, IR, ABD to 70, FF to 80 PT-OP-T Assessment and Plan Start: 10/06/20 07:42 Freq: Status: Active Protocol: Document 02/16/21 14:30 AMB (Rec: 02/16/21 15:32 AMB [email or web address]) Physical Therapy Assessment Goals Three Impairment Pain Short Term Goal (STG) Flynn will improve his shoulder strength and ROM so that he can wash his back without shoulder pain. 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 LTG Duration 12 weeks Two Impairment Strength Short Term Goal (STG) Flynn will improve his R shoulder strength to 4/5 in all planes. 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 LTG Duration 12 weeks One Impairment ROM Short Term Goal (STG) Flynn will improve his shoulder flexion (active) to 160 degrees. STG Duration 6 weeks Assessment Summary Assessment Flynn continues to be painful and limited in range of motion. Physical Therapy Plan Next Visit Focus/Plan Next Note Type Treatment Note Next Visit Plan Limited to 90 degrees flexion and abduction PROM, work on [employer] starting week 4 (02/19)
--- NOTE | 2021-02-24 15:16 | PT.OTN ---
Current Diagnoses Impingement syndrome of right shoulder (02/24/21) Strain of muscle(s) and tendon(s) of the rotator cuff of right shoulder, subsequent encounter (02/24/21) Physical Therapy Treatment Note PT-OP-A Visit Information Start: 10/06/20 07:42 Freq: Status: Active Protocol: Document 02/24/21 14:33 MB (Rec: 02/24/21 15:16 MB [id number]) Out-Patient Physical Therapy Visit Information Visit Information Visit Type Treatment Note Visit Start Time 14:33 Visit Stop Time 15:14 Total Visit Minutes 41 Visit Number 26 Precautions Precautions See protocol biceps tenodesis, labral repair and clavicle excisio non 01/22. note protocol states to wear sling for 4 weeks and allows elbow ROM but pt notes that he was told by surgeon to wear sling for 6 weeks and not to actively use elbow as he had more surgery that what was expected. 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 Had a MRI at [facility], Per pt report showed bicep tendon tear and labrum tear per pt report. Considering surgery. Does have ankylosing spondylitis. Not currently working because has a 10# lifting restriction and they don' t have work that can accomodate that. R shoulder stiffness currently. Difficulty sleeping. 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 Treatment Goals Patient/Caregiver Goals Reduce R shoulder pain returnt to work. Prior Functional Status Baseline Function- ADL's Independent Baseline Function- Mobility Independent Current Functional Impairments (Reported) Functional Limitations- ADL's Difficult lifting arm, lifting objects even of light weight (groceries) Personal Factors Other Personal Factors That May Effect Ankylosing spondylitis Therapy/Recovery PT-OP-C Subjective Start: 10/06/20 07:42 Freq: Status: Active Protocol: Document 02/24/21 14:33 MB (Rec: 02/24/21 15:16 MB [id number]) OP-PT Subjective Patient Comments Patient Comments Pt con't to have pain that makes sleeping troublesome. PT-OP-F Manual Assessment Start: 10/06/20 07:42 Freq: Status: Active Protocol: Document 10/06/20 09:00 AMB (Rec: 10/07/20 08:58 AMB [email or web address]) Manual Assessments Other Manual Assessments Other Manual Assessments Tenderness at acromion, attachment of long head of biceps, and throughout scapular muscles and upper traps. PT-OP-J Posture/Palpation/Skin Start: 10/06/20 07:42 Freq: Status: Active Protocol: Document 10/06/20 09:00 AMB (Rec: 10/07/20 08:58 AMB [email or web address]) Posture Evaluation Comments Posture Comments Flat lumbar and thoracic spine PT-OP-K Range of Motion Start: 10/06/20 07:42 Freq: Status: Active Protocol: Document 02/09/21 14:30 AMB (Rec: 02/09/21 16:01 AMB [email or web address]) Shoulder Goniometric Range of Motion Shoulder Left Passive Flexion 60 Abduction 80 Elbow/Forearm Range of Motion Elbow/Forearm Left Active Elbow Extension (degrees) 15 PT-OP-L Special Tests Start: 10/06/20 07:42 Freq: Status: Active Protocol: Document 02/09/21 16:06 AMB (Rec: 02/09/21 16:06 AMB [email or web address]) Special Tests Shoulder Special Tests Neer Impingement Comments not performed due to precautions [place] Impingement Comments not performed due to precautions PT-OP-M Strength Start: 10/06/20 07:42 Freq: Status: Active Protocol: Document 02/09/21 16:06 AMB (Rec: 02/09/21 16:06 AMB [email or web address]) Shoulder Strength Shoulder Manual Muscle Testing Left Comments not tested due to precautions PT-OP-Q Treatments Start: 10/06/20 07:42 Freq: Status: Active Protocol: Document 02/24/21 14:33 MB (Rec: 02/24/21 15:16 MB [id number]) Therapeutic Exercises Supine Exercises Use of yellow therapy putty Comments Squeezing during exercise Manual Therapy Treatment Other Other Manual Treatments Pt supine with knees bent and head and neck supported and pillow under right shoulder and arm: MWM right distal biceps and brachialis and pt performing active elbow flexion and extension with encouragement, pt also squeezing therapy putty and will give him to use at home, STM right pect major, minor, serratus anterior and increased tension in serratus compared to pects today. STM right infraspinatus, lats and teres--with more tension lats. Pt is wearing sweater and no t-shirt and so cannot see scar . Gentle STM lateral to proximal biceps scar. PROM right shoulder to 60 deg flexion with coordinated breathing. PT-OP-T Assessment and Plan Start: 10/06/20 07:42 Freq: Status: Active Protocol: Document 02/24/21 14:33 MB (Rec: 02/24/21 15:16 MB [id number]) Physical Therapy Assessment Goals Three Impairment Pain Short Term Goal (STG) Flynn will improve his shoulder strength and ROM so that he can wash his back without shoulder pain. STG Duration 6 weeks Usp Goal (LTG) Flynn will lift his arm over head without pain so that he can return to work without shoulder pain. LTG Duration 12 weeks Two Impairment Strength Short Term Goal (STG) Flynn will improve his R shoulder strength to 4/5 in all planes. 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 LTG Duration 12 weeks One Impairment ROM Short Term Goal (STG) Flynn will improve his shoulder flexion (active) to 160 degrees. STG Duration 6 weeks Assessment Summary Assessment Pt con't to be limited by high pain. Per evaluating PT, pt's surgical protocol in EMR does not exactly correspond with his particular surgery. This is a barrier to progression. Will con't to work into clinical judgement and pt's reports with guidelines in EMR . He will be in the sling for two more weeks and that will limit range d/t fascial tension. Physical Therapy Plan Frequency and Duration Frequency of Treatment 2x/Week Duration of Treatment 12 weeks Plan of Care Start Date 02/09/21 Plan of Care End Date 05/04/21 Therapeutic Interventions Therapeutic Interventions Aquatic Therapy,Home Exercise Program,Joint Mobilizations, Manual Therapy,Neuromuscular Re-education,Self-Care/Home Management,Therapeutic Activities,Therapeutic Exercises Modalities Cold Pack/Ice Massage,Electric Stimulation,Hot Packs Next Visit Focus/Plan Next Note Type Treatment Note Next Visit Plan Limited to 90 degrees flexion and abduction PROM, work on [employer] starting week 4. Have pt demonstrate pendulums and supine scapular retraction arms straight and elbows bent (isometric extension) next treatment date. Consider sidelying manual vs scapular PNF--gentle in future treatments. Consider prone for scapular and thoracic mobs.
--- NOTE | 2021-02-27 14:30 | PT.OTN ---
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 note protocol states to wear sling for 4 weeks and allows elbow ROM but pt notes that he was told by surgeon to wear sling for 6 weeks and not to actively use elbow as he had more surgery that what was expected. 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 Had a MRI at [facility], Per pt report showed bicep tendon tear and labrum tear per pt report. Considering surgery. Does have ankylosing spondylitis. Not currently working because has a 10# lifting restriction and they don' t have work that can accomodate that. R shoulder stiffness currently. Difficulty sleeping. 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 Treatment Goals Patient/Caregiver Goals Reduce R shoulder pain returnt to work. Prior Functional Status Baseline Function- ADL's Independent Baseline Function- Mobility Independent Current Functional Impairments (Reported) Functional Limitations- ADL's Difficult lifting arm, lifting objects even of light weight (groceries) Personal Factors Other Personal Factors That May Effect Ankylosing spondylitis Therapy/Recovery PT-OP-C Subjective Start: 10/06/20 07:42 Freq: Status: Active Protocol: Document 02/27/21 13:50 ER (Rec: 02/27/21 14:54 ER [id number]) OP-PT Subjective Patient Comments Patient Comments Pt reports continues to have some nights worse than others pain sleeping. Lately keeping R UE out of sling to allow rested range in elbow due to forearm and distal bicep pain, feels gaining extension ROM since last tx manual work helpful. Pt has follow up appt wiht ortho next week. PT-OP-F Manual Assessment Start: 10/06/20 07:42 Freq: Status: Active Protocol: Document 10/06/20 09:00 AMB (Rec: 10/07/20 08:58 AMB [email or web address]) Manual Assessments Other Manual Assessments Other Manual Assessments Tenderness at acromion, attachment of long head of biceps, and throughout scapular muscles and upper traps. PT-OP-J Posture/Palpation/Skin Start: 10/06/20 07:42 Freq: Status: Active Protocol: Document 10/06/20 09:00 AMB (Rec: 10/07/20 08:58 AMB [email or web address]) Posture Evaluation Comments Posture Comments Flat lumbar and thoracic spine PT-OP-K Range of Motion Start: 10/06/20 07:42 Freq: Status: Active Protocol: Document 02/27/21 13:50 ER (Rec: 02/27/21 14:54 ER [id number]) Shoulder Goniometric Range of Motion Shoulder R PROM Shoulder ROM WFL No Testing Position Supine Flexion 42 Abduction 80 Comments IR to belly, ER w/ 35 deg ABD: 8* Initial measurement 02/27/21 PT-OP-L Special Tests Start: 10/06/20 07:42 Freq: Status: Active Protocol: Document 02/09/21 16:06 AMB (Rec: 02/09/21 16:06 AMB [email or web address]) Special Tests Shoulder Special Tests Neer Impingement Comments not performed due to precautions [place] Impingement Comments not performed due to precautions PT-OP-M Strength Start: 10/06/20 07:42 Freq: Status: Active Protocol: Document 02/09/21 16:06 AMB (Rec: 02/09/21 16:06 AMB [email or web address]) Shoulder Strength Shoulder Manual Muscle Testing Left Comments not tested due to precautions PT-OP-Q Treatments Start: 10/06/20 07:42 Freq: Status: Active Protocol: Document 02/27/21 13:50 ER (Rec: 02/27/21 14:54 ER [id number]) Therapeutic Exercises Standing Exercises R elbow ext isometric Standing Exercise Name supported by DINA, almost in ext Side right Reps/Minutes 10 sec hold x10 Comments cued level shld, tall posture, Manual Therapy Treatment Soft Tissue Mobilization 3 Body Location R UE gentle distal biceps, brachialis, brachioradialis Mobilization Type Myofascial Release,Sustained Pressure,Trigger Point Release Intensity/Depth Moderate Body Position Hooklying Comments muscle tightness softening with manual 2 Body Location PROM all planes R shld Body Position Hooklying Comments FF, ABD, IR to belly -ABD to 80> 90deg post manual -FF 42> 94deg post manual 02/27/21 1 Body Location R UT, supraspin, infrasp, pec Luis Armando/Minor Mobilization Type Myofascial Release,Sustained Pressure,Trigger Point Release Intensity/Depth Moderate Body Position Hooklying Comments muscle tightness softening with manual Joint Mobilizations 1 Joint scapulothoracic retraction depression- gentle Direction R Grade I Body Position side Comments manual, good response. PT-OP-T Assessment and Plan Start: 10/06/20 07:42 Freq: Status: Active Protocol: Document 02/27/21 13:50 ER (Rec: 02/27/21 14:54 ER [id number]) Physical Therapy Assessment Goals Three Impairment Pain Short Term Goal (STG) Flynn will improve his shoulder strength and ROM so that he can wash his back without shoulder pain. 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 LTG Duration 12 weeks Two Impairment Strength Short Term Goal (STG) Flynn will improve his R shoulder strength to 4/5 in all planes. STG Duration 6 weeks Correction Goal (LTG) Flynn will lift 10# to shoulder height without an increase in shoulder pain. LTG Duration 12 weeks One Impairment ROM Short Term Goal (STG) Flynn will improve his shoulder flexion (active) to 160 degrees. STG Duration 6 weeks Assessment Summary Assessment Pt. demonstrated reduced pain on STM and PROM. Was able to reach R shld flexion/abd PROM of 90 with STM. Pt is seeing surgeon on Tuesday. Asked to have Surgeon's office send over restriction guidelines post visit if on track with protocol. Pt. will benefit from continued PT to improve ROM, and functional strength. Physical Therapy Plan Frequency and Duration Frequency of Treatment 2x/Week Duration of Treatment 12 weeks Plan of Care Start Date 02/09/21 Plan of Care End Date 05/04/21 Therapeutic Interventions Therapeutic Interventions Aquatic Therapy,Home Exercise Program,Joint Mobilizations, Manual Therapy,Neuromuscular Re-education,Self-Care/Home Management,Therapeutic Activities,Therapeutic Exercises Modalities Cold Pack/Ice Massage,Electric Stimulation,Hot Packs Next Visit Focus/Plan Next Note Type Treatment Note Next Visit Plan STM and PROM to end of protocol allowed range. Add pulleys to protocol allowed range. Pendulums and supine scapular retraction arms straight and elbows bent ( isometric extension). Continue sidelying manual vs scapular PNF--gentle in future treatments. Consider prone for scapular and thoracic mobs.
--- NOTE | 2021-02-27 15:10 | PT.OTN ---
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 note protocol states to wear sling for 4 weeks and allows elbow ROM but pt notes that he was told by surgeon to wear sling for 6 weeks and not to actively use elbow as he had more surgery that what was expected. 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 Had a MRI at [facility], Per pt report showed bicep tendon tear and labrum tear per pt report. Considering surgery. Does have ankylosing spondylitis. Not currently working because has a 10# lifting restriction and they don' t have work that can accomodate that. R shoulder stiffness currently. Difficulty sleeping. 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 Treatment Goals Patient/Caregiver Goals Reduce R shoulder pain returnt to work. Prior Functional Status Baseline Function- ADL's Independent Baseline Function- Mobility Independent Current Functional Impairments (Reported) Functional Limitations- ADL's Difficult lifting arm, lifting objects even of light weight (groceries) Personal Factors Other Personal Factors That May Effect Ankylosing spondylitis Therapy/Recovery PT-OP-C Subjective Start: 10/06/20 07:42 Freq: Status: Active Protocol: Document 02/27/21 13:50 ER (Rec: 02/27/21 14:54 ER [id number]) OP-PT Subjective Patient Comments Patient Comments Pt reports continues to have some nights worse than others pain sleeping. Lately keeping R UE out of sling to allow rested range in elbow due to forearm and distal bicep pain, feels gaining extension ROM since last tx manual work helpful. Pt has follow up appt wiht ortho next week. PT-OP-F Manual Assessment Start: 10/06/20 07:42 Freq: Status: Active Protocol: Document 10/06/20 09:00 AMB (Rec: 10/07/20 08:58 AMB [email or web address]) Manual Assessments Other Manual Assessments Other Manual Assessments Tenderness at acromion, attachment of long head of biceps, and throughout scapular muscles and upper traps. PT-OP-J Posture/Palpation/Skin Start: 10/06/20 07:42 Freq: Status: Active Protocol: Document 10/06/20 09:00 AMB (Rec: 10/07/20 08:58 AMB [email or web address]) Posture Evaluation Comments Posture Comments Flat lumbar and thoracic spine PT-OP-K Range of Motion Start: 10/06/20 07:42 Freq: Status: Active Protocol: Document 02/27/21 13:50 ER (Rec: 02/27/21 14:54 ER [id number]) Shoulder Goniometric Range of Motion Shoulder R PROM Shoulder ROM WFL No Testing Position Supine Flexion 42 Abduction 80 Comments IR to belly, ER w/ 35 deg ABD: 8* Initial measurement 02/27/21 PT-OP-L Special Tests Start: 10/06/20 07:42 Freq: Status: Active Protocol: Document 02/09/21 16:06 AMB (Rec: 02/09/21 16:06 AMB [email or web address]) Special Tests Shoulder Special Tests Neer Impingement Comments not performed due to precautions [place] Impingement Comments not performed due to precautions PT-OP-M Strength Start: 10/06/20 07:42 Freq: Status: Active Protocol: Document 02/09/21 16:06 AMB (Rec: 02/09/21 16:06 AMB [email or web address]) Shoulder Strength Shoulder Manual Muscle Testing Left Comments not tested due to precautions PT-OP-Q Treatments Start: 10/06/20 07:42 Freq: Status: Active Protocol: Document 02/27/21 13:50 ER (Rec: 02/27/21 14:54 ER [id number]) Therapeutic Exercises Standing Exercises R elbow ext isometric Standing Exercise Name supported by DINA, almost in ext Side right Reps/Minutes 10 sec hold x10 Comments cued level shld, tall posture, Manual Therapy Treatment Soft Tissue Mobilization 3 Body Location R UE gentle distal biceps, brachialis, brachioradialis Mobilization Type Myofascial Release,Sustained Pressure,Trigger Point Release Intensity/Depth Moderate Body Position Hooklying Comments muscle tightness softening with manual 2 Body Location PROM all planes R shld Body Position Hooklying Comments FF, ABD, IR to belly -ABD to 80> 90deg post manual -FF 42> 94deg post manual 02/27/21 1 Body Location R UT, supraspin, infrasp, pec Luis Armando/Minor Mobilization Type Myofascial Release,Sustained Pressure,Trigger Point Release Intensity/Depth Moderate Body Position Hooklying Comments muscle tightness softening with manual Joint Mobilizations 1 Joint scapulothoracic retraction depression- gentle Direction R Grade I Body Position side Comments manual, good response. PT-OP-T Assessment and Plan Start: 10/06/20 07:42 Freq: Status: Active Protocol: Document 02/27/21 13:50 ER (Rec: 02/27/21 14:54 ER [id number]) Physical Therapy Assessment Goals Three Impairment Pain Short Term Goal (STG) Flynn will improve his shoulder strength and ROM so that he can wash his back without shoulder pain. STG Duration 6 weeks Inside [employer] Grower Goal (LTG) Flynn will lift his arm over head without pain so that he can return to work without shoulder pain. LTG Duration 12 weeks Two Impairment Strength Short Term Goal (STG) Flynn will improve his R shoulder strength to 4/5 in all planes. STG Duration 6 weeks Longterm Goal (LTG) Flynn will lift 10# to shoulder height without an increase in shoulder pain. LTG Duration 12 weeks One Impairment ROM Short Term Goal (STG) Flynn will improve his shoulder flexion (active) to 160 degrees. STG Duration 6 weeks Assessment Summary Assessment Pt. demonstrated reduced pain on STM and PROM. Was able to reach R shld flexion/abd PROM of 90 with STM. Pt is seeing surgeon on Tuesday. Asked to have Surgeon's office send over restriction guidelines post visit if on track with protocol. Pt. will benefit from continued PT to improve ROM, and functional strength. Physical Therapy Plan Frequency and Duration Frequency of Treatment 2x/Week Duration of Treatment 12 weeks Plan of Care Start Date 02/09/21 Plan of Care End Date 05/04/21 Therapeutic Interventions Therapeutic Interventions Aquatic Therapy,Home Exercise Program,Joint Mobilizations, Manual Therapy,Neuromuscular Re-education,Self-Care/Home Management,Therapeutic Activities,Therapeutic Exercises Modalities Cold Pack/Ice Massage,Electric Stimulation,Hot Packs Next Visit Focus/Plan Next Note Type Treatment Note Next Visit Plan STM and PROM to end of protocol allowed range. Add pulleys to protocol allowed range. Pendulums and supine scapular retraction arms straight and elbows bent ( isometric extension). Continue sidelying manual vs scapular PNF--gentle in future treatments. Consider prone for scapular and thoracic mobs.
--- NOTE | 2021-03-02 15:15 | PT.OTN ---
Current Diagnoses Impingement syndrome of right shoulder (03/02/21) Strain of muscle(s) and tendon(s) of the rotator cuff of right shoulder, subsequent encounter (03/02/21) Physical Therapy Treatment Note PT-OP-A Visit Information Start: 10/06/20 07:42 Freq: Status: Active Protocol: Document 03/02/21 14:34 SP (Rec: 03/02/21 15:49 SP [id number]) Out-Patient Physical Therapy Visit Information Visit Information Visit Type Treatment Note Visit Start Time 14:34 Visit Stop Time 15:15 Total Visit Minutes 41 Visit Number 28 Number of READING PROFESSOR Visits 2 PT-OP-B Current Condition Start: 10/06/20 07:42 Freq: Status: Active Protocol: Document 10/06/20 09:00 AMB (Rec: 10/06/20 09:15 AMB [id number]) Current Condition History of Current Condition Onset Date 08/15/20 Current Complaints R shoulder pain History of Current Condition 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 Had a MRI at [facility], Per pt report showed bicep tendon tear and labrum tear per pt report. Considering surgery. Does have ankylosing spondylitis. Not currently working because has a 10# lifting restriction and they don' t have work that can accomodate that. R shoulder stiffness currently. Difficulty sleeping. 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 Treatment Goals Patient/Caregiver Goals Reduce R shoulder pain returnt to work. Prior Functional Status Baseline Function- ADL's Independent Baseline Function- Mobility Independent Current Functional Impairments (Reported) Functional Limitations- ADL's Difficult lifting arm, lifting objects even of light weight (groceries) Personal Factors Other Personal Factors That May Effect Ankylosing spondylitis Therapy/Recovery PT-OP-C Subjective Start: 10/06/20 07:42 Freq: Status: Active Protocol: Document 03/02/21 14:34 SP (Rec: 03/02/21 15:49 SP [id number]) OP-PT Subjective Patient Comments Patient Comments Pt arrives without sling, states saw ortho today and DC' d sling, was encouraged to do more things within tolerance but not lift heavy objects and ok to start pulleys and will send updates to PT for safety for progression. PT-OP-F Manual Assessment Start: 10/06/20 07:42 Freq: Status: Active Protocol: Document 10/06/20 09:00 AMB (Rec: 10/07/20 08:58 AMB [email or web address]) Manual Assessments Other Manual Assessments Other Manual Assessments Tenderness at acromion, attachment of long head of biceps, and throughout scapular muscles and upper traps. PT-OP-J Posture/Palpation/Skin Start: 10/06/20 07:42 Freq: Status: Active Protocol: Document 10/06/20 09:00 AMB (Rec: 10/07/20 08:58 AMB [email or web address]) Posture Evaluation Comments Posture Comments Flat lumbar and thoracic spine PT-OP-K Range of Motion Start: 10/06/20 07:42 Freq: Status: Active Protocol: Document 02/27/21 13:50 ER (Rec: 02/27/21 14:54 ER [id number]) Shoulder Goniometric Range of Motion Shoulder R PROM Shoulder ROM WFL No Testing Position Supine Flexion 42 Abduction 80 Comments IR to belly, ER w/ 35 deg ABD: 8* Initial measurement 02/27/21 PT-OP-L Special Tests Start: 10/06/20 07:42 Freq: Status: Active Protocol: Document 02/09/21 16:06 AMB (Rec: 02/09/21 16:06 AMB [email or web address]) Special Tests Shoulder Special Tests Neer Impingement Comments not performed due to precautions [place] Impingement Comments not performed due to precautions PT-OP-M Strength Start: 10/06/20 07:42 Freq: Status: Active Protocol: Document 02/09/21 16:06 AMB (Rec: 02/09/21 16:06 AMB [email or web address]) Shoulder Strength Shoulder Manual Muscle Testing Left Comments not tested due to precautions PT-OP-Q Treatments Start: 10/06/20 07:42 Freq: Status: Active Protocol: Document 03/02/21 14:34 SP (Rec: 03/02/21 15:49 SP [id number]) Therapeutic Exercises Supine Exercises 4 Supine Exercise Name shld ER (belly to neutral) Side right Resistance AROM Equipment Used elbow bent 90 deg Reps/Minutes x5 reps Comments none to low discomfort at 5th rep 3 Supine Exercise Name elbow flex/ extension Side right Resistance AROM Reps/Minutes 10 Comments good pain free, tight at end feel flexion Sitting Exercises table slides Sitting Exercise Name FF, scaption, ABD Side right Reps/Minutes x3 reps each Comments good feedback response more comforting than crystal, good postural alignment pulleys Sitting Exercise Name FF PROM Side right Reps/Minutes x10 Comments good feedback response minimal pain with elbow straight Standing Exercises self STMs Standing Exercise Name infraspinatus, inter scap, UT Side right Equipment Used racquetball in sock roll on wall using LUE, RUE at side Reps/Minutes 2 min Comments good feedback response pendulum Standing Exercise Name f, b, sts Side right Resistance PROM Reps/Minutes x 10 reps each direction Comments good feedback response and demonstration Manual Therapy Treatment Soft Tissue Mobilization 3 Body Location R UE gentle distal biceps, brachialis, brachioradialis Mobilization Type Myofascial Release,Sustained Pressure,Trigger Point Release Intensity/Depth Moderate Body Position Hooklying Comments muscle tightness softening with manual 2 Body Location PROM all planes R shld Body Position Hooklying Comments FF, ABD, IR to belly Did not take measurements this tx Joint Mobilizations 2 Joint R GH Jt gentle Direction sup/ inf/ AP Grade I Body Position Hooklying Comments good feedback tolerance, relaxing 1 Joint scapulothoracic retraction depression- gentle Direction R Grade I Body Position side Comments manual, good response. PT-OP-T Assessment and Plan Start: 10/06/20 07:42 Freq: Status: Active Protocol: Document 03/02/21 14:34 SP (Rec: 03/02/21 15:49 SP [id number]) Physical Therapy Assessment Goals Three Impairment Pain Short Term Goal (STG) Flynn will improve his shoulder strength and ROM so that he can wash his back without shoulder pain. STG Duration 6 weeks Recovery Rn Goal (LTG) Flynn will lift his arm over head without pain so that he can return to work without shoulder pain. LTG Duration 12 weeks Two Impairment Strength Short Term Goal (STG) Flynn will improve his R shoulder strength to 4/5 in all planes. STG Duration 6 weeks Recovery Rn Goal (LTG) Flynn will lift 10# to shoulder height without an increase in shoulder pain. LTG Duration 12 weeks One Impairment ROM Short Term Goal (STG) Flynn will improve his shoulder flexion (active) to 160 degrees. STG Duration 6 weeks Assessment Summary Assessment Pt improved RUE elbow extension at side upon arrival . Pt ableto complete elbow flex/ext supine with only some tension end feel flexion (did not complete measurements). Initiated active R shld ER belly to neutral with good understanding not passed neutral and no more than handful reps with little tiring discomfort. Pt reported table slides PROM more comfort than pulleys today, cues as needed for no UT recruitment during pulleys FF only today. Pt declined modalities end of tx, will do at home later if needed. Physical Therapy Plan Frequency and Duration Frequency of Treatment 2x/Week Duration of Treatment 12 weeks Plan of Care Start Date 02/09/21 Plan of Care End Date 05/04/21 Therapeutic Interventions Therapeutic Interventions Aquatic Therapy,Home Exercise Program,Joint Mobilizations, Manual Therapy,Neuromuscular Re-education,Self-Care/Home Management,Therapeutic Activities,Therapeutic Exercises Modalities Cold Pack/Ice Massage,Electric Stimulation,Hot Packs Next Visit Focus/Plan Next Note Type Treatment Note Next Visit Plan Look if updated physician note faxed from 03/02/21. Assess scar, PROM table slides, pulleys, continue PROM POC: STM and PROM to end of protocol allowed range. Consider prone for scapular and thoracic mobs.
--- NOTE | 2021-03-06 15:50 | PT.OTN ---
Current Diagnoses Impingement syndrome of right shoulder (03/06/21) Strain of muscle(s) and tendon(s) of the rotator cuff of right shoulder, subsequent encounter (03/06/21) Physical Therapy Treatment Note PT-OP-A Visit Information Start: 10/06/20 07:42 Freq: Status: Active Protocol: Document 03/06/21 15:00 ER (Rec: 03/06/21 15:50 ER [id number]) Out-Patient Physical Therapy Visit Information Visit Information Visit Type Treatment Note Visit Note SPTA attended tx and provided education and assist under direct supervision and instruction of IVANIA Daniel. Visit Start Time 15:00 Visit Stop Time 15:43 Total Visit Minutes 43 Visit Number 29 Number of MUSIC INTERNSHIP Visits 3 Precautions Precautions See protocol biceps tenodesis, labral repair and clavicle excisio non 01/22. note protocol states to wear sling for 4 weeks and allows elbow ROM but pt notes that he was told by surgeon to wear sling for 6 weeks and not to actively use elbow as he had more surgery that what was expected. 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 Had a MRI at [facility], Per pt report showed bicep tendon tear and labrum tear per pt report. Considering surgery. Does have ankylosing spondylitis. Not currently working because has a 10# lifting restriction and they don' t have work that can accomodate that. R shoulder stiffness currently. Difficulty sleeping. 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 Treatment Goals Patient/Caregiver Goals Reduce R shoulder pain returnt to work. Prior Functional Status Baseline Function- ADL's Independent Baseline Function- Mobility Independent Current Functional Impairments (Reported) Functional Limitations- ADL's Difficult lifting arm, lifting objects even of light weight (groceries) Personal Factors Other Personal Factors That May Effect Ankylosing spondylitis Therapy/Recovery PT-OP-C Subjective Start: 10/06/20 07:42 Freq: Status: Active Protocol: Document 03/06/21 15:00 ER (Rec: 03/06/21 15:50 ER [id number]) OP-PT Subjective Patient Comments Patient Comments Pt stated is having less R shld pain, and arm is more mobile. Pt indicated that he is using a pillow under R arm, supporting shoulder so that he can sleep on his left side better. Pt states mainly doing pendulums, didn't to table slides shown last tx since last visit. PT-OP-F Manual Assessment Start: 10/06/20 07:42 Freq: Status: Active Protocol: Document 10/06/20 09:00 AMB (Rec: 10/07/20 08:58 AMB [email or web address]) Manual Assessments Other Manual Assessments Other Manual Assessments Tenderness at acromion, attachment of long head of biceps, and throughout scapular muscles and upper traps. PT-OP-J Posture/Palpation/Skin Start: 10/06/20 07:42 Freq: Status: Active Protocol: Document 10/06/20 09:00 AMB (Rec: 10/07/20 08:58 AMB [email or web address]) Posture Evaluation Comments Posture Comments Flat lumbar and thoracic spine PT-OP-K Range of Motion Start: 10/06/20 07:42 Freq: Status: Active Protocol: Document 02/27/21 13:50 ER (Rec: 02/27/21 14:54 ER [id number]) Shoulder Goniometric Range of Motion Shoulder R PROM Shoulder ROM WFL No Testing Position Supine Flexion 42 Abduction 80 Comments IR to belly, ER w/ 35 deg ABD: 8* Initial measurement 02/27/21 PT-OP-L Special Tests Start: 10/06/20 07:42 Freq: Status: Active Protocol: Document 02/09/21 16:06 AMB (Rec: 02/09/21 16:06 AMB [email or web address]) Special Tests Shoulder Special Tests Neer Impingement Comments not performed due to precautions [place] Impingement Comments not performed due to precautions PT-OP-M Strength Start: 10/06/20 07:42 Freq: Status: Active Protocol: Document 02/09/21 16:06 AMB (Rec: 02/09/21 16:06 AMB [email or web address]) Shoulder Strength Shoulder Manual Muscle Testing Left Comments not tested due to precautions PT-OP-Q Treatments Start: 10/06/20 07:42 Freq: Status: Active Protocol: Document 03/06/21 15:00 ER (Rec: 03/06/21 15:50 ER [id number]) Therapeutic Exercises Supine Exercises Serratus press Supine Exercise Name forward punch Side bilateral Equipment Used w/cane Reps/Minutes 10x Comments began to have pain posterior shld last two reps. 4 Supine Exercise Name shld ER (belly to 10deg) Side right Resistance AROM Equipment Used elbow bent 90 deg Reps/Minutes x10 reps Comments none to low discomfort at last rep Prone Exercises Scapular retraction Prone Exercise Name R shoulder supported on 2 towels, arm hanging off table Side right Resistance AROM Reps/Minutes 10x Comments cues for no UT recruitment so Discontinued. Sitting Exercises table slides Sitting Exercise Name FF, scaption Side right Reps/Minutes x3 reps each Comments little discomfort but able do modified range- not tolerate ABD. Standing Exercises pendulum Standing Exercise Name f, b, circular, performed in sitting Side right Resistance PROM Reps/Minutes x 5 reps each direction Comments good feedback response and demonstration Manual Therapy Treatment Soft Tissue Mobilization Shoulder Body Location deltoid, distal infraspinatus Mobilization Type Oscillations,Rolling,Strumming ,Sustained Pressure Intensity/Depth Moderate Body Position Hooklying 2 Body Location PROM all planes R shld Body Position Hooklying Comments FF 112 deg, abd 95 deg w/ ebow bent 1 Body Location UT, supraspin, lev scap, suboccipitals Mobilization Type Myofascial Release,Sustained Pressure,Trigger Point Release Intensity/Depth Moderate Body Position Hooklying Joint Mobilizations 2 Joint R GH Jt gentle Direction sup/ inf/ AP Grade I Body Position Hooklying Comments good feedback tolerance, relaxing 1 Joint scapulothoracic retraction depression- gentle Direction R Grade I Body Position side Comments manual, sometimes clicking over anterior R shld into depression, improves with reposition scap retract with . PT-OP-T Assessment and Plan Start: 10/06/20 07:42 Freq: Status: Active Protocol: Document 03/06/21 15:00 ER (Rec: 03/06/21 15:50 ER [id number]) Physical Therapy Assessment Goals Three Impairment Pain Short Term Goal (STG) Flynn will improve his shoulder strength and ROM so that he can wash his back without shoulder pain. STG Duration 6 weeks Halfway Goal (LTG) Flynn will lift his arm over head without pain so that he can return to work without shoulder pain. LTG Duration 12 weeks Two Impairment Strength Short Term Goal (STG) Flynn will improve his R shoulder strength to 4/5 in all planes. STG Duration 6 weeks Halfway Goal (LTG) Flynn will lift 10# to shoulder height without an increase in shoulder pain. LTG Duration 12 weeks One Impairment ROM Short Term Goal (STG) Flynn will improve his shoulder flexion (active) to 160 degrees. STG Duration 6 weeks Assessment Summary Assessment Pt little more sore today, continues to guard arm away from body. He is able to progress PROM and perform supine press w/ cane and AROM ER 10 deg. Educated to perform table slides and press at home. Pt declined CP, will do at home. Physical Therapy Plan Frequency and Duration Frequency of Treatment 2x/Week Duration of Treatment 12 weeks Plan of Care Start Date 02/09/21 Plan of Care End Date 05/04/21 Therapeutic Interventions Therapeutic Interventions Aquatic Therapy,Home Exercise Program,Joint Mobilizations, Manual Therapy,Neuromuscular Re-education,Self-Care/Home Management,Therapeutic Activities,Therapeutic Exercises Modalities Cold Pack/Ice Massage,Electric Stimulation,Hot Packs Next Visit Focus/Plan Next Note Type Treatment Note Next Visit Plan Look if updated physician note faxed from 03/02/21. Recheck: scar, PROM table slides, pulleys, continue PROM progress AROM withintolerance. POC: STM and PROM to end of protocol allowed range. Consider prone for scapular and thoracic mobs.
--- NOTE | 2021-03-16 15:58 | PT.OTN ---
Current Diagnoses Impingement syndrome of right shoulder (03/16/21) Strain of muscle(s) and tendon(s) of the rotator cuff of right shoulder, subsequent encounter (03/16/21) Physical Therapy Treatment Note PT-OP-A Visit Information Start: 10/06/20 07:42 Freq: Status: Active Protocol: Document 03/16/21 15:00 ER (Rec: 03/16/21 15:57 ER [id number]) Out-Patient Physical Therapy Visit Information Visit Information Visit Type Treatment Note Visit Note SPTA attended tx and provided education and assist under direct supervision and instruction of IVANIA Daniel. Visit Start Time 15:00 Visit Stop Time 15:45 Total Visit Minutes 45 Visit Number 30 Number of NURSERY SUPERVISOR Visits 4 Precautions Precautions See protocol biceps tenodesis, labral repair and clavicle excisio non 01/22. note protocol states to wear sling for 4 weeks and allows elbow ROM but pt notes that he was told by surgeon to wear sling for 6 weeks and not to actively use elbow as he had more surgery that what was expected. 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 Had a MRI at [facility], Per pt report showed bicep tendon tear and labrum tear per pt report. Considering surgery. Does have ankylosing spondylitis. Not currently working because has a 10# lifting restriction and they don' t have work that can accomodate that. R shoulder stiffness currently. Difficulty sleeping. 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 Treatment Goals Patient/Caregiver Goals Reduce R shoulder pain returnt to work. Prior Functional Status Baseline Function- ADL's Independent Baseline Function- Mobility Independent Current Functional Impairments (Reported) Functional Limitations- ADL's Difficult lifting arm, lifting objects even of light weight (groceries) Personal Factors Other Personal Factors That May Effect Ankylosing spondylitis Therapy/Recovery PT-OP-C Subjective Start: 10/06/20 07:42 Freq: Status: Active Protocol: Document 03/16/21 15:00 ER (Rec: 03/16/21 15:57 ER [id number]) OP-PT Subjective Patient Comments Patient Comments Pt said shoulder has been getting more sore sometimes. He rests it when it hurts to relieve pain. says he still can't reach his arm out in front of his body very well. Reports pain / pre treatment. PT-OP-F Manual Assessment Start: 10/06/20 07:42 Freq: Status: Active Protocol: Document 10/06/20 09:00 AMB (Rec: 10/07/20 08:58 AMB [email or web address]) Manual Assessments Other Manual Assessments Other Manual Assessments Tenderness at acromion, attachment of long head of biceps, and throughout scapular muscles and upper traps. PT-OP-J Posture/Palpation/Skin Start: 10/06/20 07:42 Freq: Status: Active Protocol: Document 10/06/20 09:00 AMB (Rec: 10/07/20 08:58 AMB [email or web address]) Posture Evaluation Comments Posture Comments Flat lumbar and thoracic spine PT-OP-K Range of Motion Start: 10/06/20 07:42 Freq: Status: Active Protocol: Document 02/27/21 13:50 ER (Rec: 02/27/21 14:54 ER [id number]) Shoulder Goniometric Range of Motion Shoulder R PROM Shoulder ROM WFL No Testing Position Supine Flexion 42 Abduction 80 Comments IR to belly, ER w/ 35 deg ABD: 8* Initial measurement 02/27/21 PT-OP-L Special Tests Start: 10/06/20 07:42 Freq: Status: Active Protocol: Document 02/09/21 16:06 AMB (Rec: 02/09/21 16:06 AMB [email or web address]) Special Tests Shoulder Special Tests Neer Impingement Comments not performed due to precautions [place] Impingement Comments not performed due to precautions PT-OP-M Strength Start: 10/06/20 07:42 Freq: Status: Active Protocol: Document 02/09/21 16:06 AMB (Rec: 02/09/21 16:06 AMB [email or web address]) Shoulder Strength Shoulder Manual Muscle Testing Left Comments not tested due to precautions PT-OP-Q Treatments Start: 10/06/20 07:42 Freq: Status: Active Protocol: Document 03/16/21 15:00 ER (Rec: 03/16/21 15:57 ER [id number]) Therapeutic Exercises Supine Exercises Serratus press Supine Exercise Name forward punch Side bilateral Equipment Used w/cane Reps/Minutes 10x Comments no pain reported today 4 Supine Exercise Name shld ER (belly to 10deg) Side right Resistance AROM Equipment Used elbow bent 90 deg Reps/Minutes x10 reps Comments none to low discomfort at last rep Prone Exercises AAROM ABD with cane Prone Exercise Name hooklying Side right Resistance AROM Equipment Used cane Reps/Minutes 10x Comments Pt reports some pain when returning to neutral AAROM ER with cane Prone Exercise Name hooklying Side right Resistance AROM Equipment Used cane Reps/Minutes 10x Comments Pt reports not too bad pain at end ROM AAROM flexion with cane Prone Exercise Name hooklying Side bilateral Resistance AROM, cane Equipment Used Cane Reps/Minutes 10x Comments Pt reports pain of 8/10 at end of ROM Sitting Exercises table slides Sitting Exercise Name FF, scaption Side right Reps/Minutes 10x ea Comments Pt reports little discomfort with exercise. pulleys Sitting Exercise Name FF, scaption, ABD, PROM Side right Resistance PROM Equipment Used 112 deg scaption, 93 deg ABD Reps/Minutes x10 ea, x6 ABD Comments good feedback, less discomfort in scaption than FF, most pain with ABD Standing Exercises Wall Walking into flexion Standing Exercise Name added to HEP Side right Reps/Minutes 5x total- rest every 2 reps Comments reached 135 deg flexion, supported with LUE under elbow eccentric PT-OP-R Modalities Start: 10/06/20 07:42 Freq: Status: Active Protocol: Document 03/16/21 15:00 ER (Rec: 03/16/21 15:58 ER [id number]) Hot Pack/Cold Pack Treatment cryocuff Patient Position Sitting Patient Tolerance Good Comments Good feedback response. PT-OP-T Assessment and Plan Start: 10/06/20 07:42 Freq: Status: Active Protocol: Document 03/16/21 15:00 ER (Rec: 03/16/21 15:57 ER [id number]) Physical Therapy Assessment Goals Three Impairment Pain Short Term Goal (STG) Flynn will improve his shoulder strength and ROM so that he can wash his back without shoulder pain. STG Duration 6 weeks Ambulatory Care Goal (LTG) Flynn will lift his arm over head without pain so that he can return to work without shoulder pain. LTG Duration 12 weeks Two Impairment Strength Short Term Goal (STG) Flynn will improve his R shoulder strength to 4/5 in all planes. STG Duration 6 weeks Longterm Goal (LTG) Flynn will lift 10# to shoulder height without an increase in shoulder pain. LTG Duration 12 weeks One Impairment ROM Short Term Goal (STG) Flynn will improve his shoulder flexion (active) to 160 degrees. STG Duration 6 weeks Assessment Summary Assessment Pt worked through PROM, AROM, and AAROM with cane exercises with good feedback, but some pain/discomfort, primarily with returning to neutral position from end ROM. Wall finger walking produced better flexion ROM than AAROM with cane. Iced shoulder end of tx due to increase in shldr pain. Physical Therapy Plan Frequency and Duration Frequency of Treatment 2x/Week Duration of Treatment 12 weeks Plan of Care Start Date 02/09/21 Plan of Care End Date 05/04/21 Therapeutic Interventions Therapeutic Interventions Aquatic Therapy,Home Exercise Program,Joint Mobilizations, Manual Therapy,Neuromuscular Re-education,Self-Care/Home Management,Therapeutic Activities,Therapeutic Exercises Modalities Cold Pack/Ice Massage,Electric Stimulation,Hot Packs Next Visit Focus/Plan Next Note Type Treatment Note Next Visit Plan Look if updated physician note faxed from 03/02/21. Recheck: scar, PROM table slides, pulleys, continue PROM progress AROM withintolerance. POC: STM and PROM to end of protocol allowed range. Consider prone for scapular and thoracic mobs.
--- NOTE | 2021-03-18 15:38 | PT.OTN ---
Current Diagnoses Impingement syndrome of right shoulder (03/18/21) Strain of muscle(s) and tendon(s) of the rotator cuff of right shoulder, subsequent encounter (03/18/21) Physical Therapy Treatment Note PT-OP-A Visit Information Start: 10/06/20 07:42 Freq: Status: Active Protocol: Document 03/18/21 14:30 AMB (Rec: 03/18/21 15:35 AMB [id number]) Out-Patient Physical Therapy Visit Information Visit Information Visit Type Treatment Note Visit Start Time 14:30 Visit Stop Time 15:10 Total Visit Minutes 40 Visit Number 21 Number of HIV COUNSELOR Visits 0 PT-OP-B Current Condition Start: 10/06/20 07:42 Freq: Status: Active Protocol: Document 10/06/20 09:00 AMB (Rec: 10/06/20 09:15 AMB [id number]) Current Condition History of Current Condition Onset Date 08/15/20 Current Complaints R shoulder pain History of Current Condition 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 Had a MRI at [facility], Per pt report showed bicep tendon tear and labrum tear per pt report. Considering surgery. Does have ankylosing spondylitis. Not currently working because has a 10# lifting restriction and they don' t have work that can accomodate that. R shoulder stiffness currently. Difficulty sleeping. 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 Treatment Goals Patient/Caregiver Goals Reduce R shoulder pain returnt to work. Prior Functional Status Baseline Function- ADL's Independent Baseline Function- Mobility Independent Current Functional Impairments (Reported) Functional Limitations- ADL's Difficult lifting arm, lifting objects even of light weight (groceries) Personal Factors Other Personal Factors That May Effect Ankylosing spondylitis Therapy/Recovery PT-OP-C Subjective Start: 10/06/20 07:42 Freq: Status: Active Protocol: Document 03/18/21 14:30 AMB (Rec: 03/18/21 15:35 AMB [id number]) OP-PT Subjective Patient Comments Patient Comments Pt was sore after last PT appt , but states it was the most he has done in a while. PT-OP-F Manual Assessment Start: 10/06/20 07:42 Freq: Status: Active Protocol: Document 10/06/20 09:00 AMB (Rec: 10/07/20 08:58 AMB [email or web address]) Manual Assessments Other Manual Assessments Other Manual Assessments Tenderness at acromion, attachment of long head of biceps, and throughout scapular muscles and upper traps. PT-OP-J Posture/Palpation/Skin Start: 10/06/20 07:42 Freq: Status: Active Protocol: Document 10/06/20 09:00 AMB (Rec: 10/07/20 08:58 AMB [email or web address]) Posture Evaluation Comments Posture Comments Flat lumbar and thoracic spine PT-OP-K Range of Motion Start: 10/06/20 07:42 Freq: Status: Active Protocol: Document 02/27/21 13:50 ER (Rec: 02/27/21 14:54 ER [id number]) Shoulder Goniometric Range of Motion Shoulder R PROM Shoulder ROM WFL No Testing Position Supine Flexion 42 Abduction 80 Comments IR to belly, ER w/ 35 deg ABD: 8* Initial measurement 02/27/21 PT-OP-L Special Tests Start: 10/06/20 07:42 Freq: Status: Active Protocol: Document 02/09/21 16:06 AMB (Rec: 02/09/21 16:06 AMB [email or web address]) Special Tests Shoulder Special Tests Neer Impingement Comments not performed due to precautions [place] Impingement Comments not performed due to precautions PT-OP-M Strength Start: 10/06/20 07:42 Freq: Status: Active Protocol: Document 02/09/21 16:06 AMB (Rec: 02/09/21 16:06 AMB [email or web address]) Shoulder Strength Shoulder Manual Muscle Testing Left Comments not tested due to precautions PT-OP-Q Treatments Start: 10/06/20 07:42 Freq: Status: Active Protocol: Document 03/18/21 14:30 AMB (Rec: 03/18/21 15:34 AMB [id number]) Therapeutic Exercises Supine Exercises Serratus press Supine Exercise Name forward punch Side bilateral Equipment Used w/cane Reps/Minutes 10x Comments no pain reported today Sitting Exercises pulleys Sitting Exercise Name FF, scaption Side right Resistance PROM Equipment Used 119 scaption Reps/Minutes x10 ea, Comments good feedback, less discomfort in scaption than FF, most pain with ABD Standing Exercises Wall Walking into flexion Standing Exercise Name added to HEP Side right Reps/Minutes 5x total- rest every 2 reps Comments supported with LUE under elbow eccentric pendulum Standing Exercise Name f, b, circular, performed in sitting Side right Resistance PROM Reps/Minutes x 5 reps each direction Manual Therapy Treatment Soft Tissue Mobilization Shoulder Body Location deltoid, biceps Mobilization Type Oscillations,Rolling,Sustained Pressure Intensity/Depth Moderate Body Position Hooklying 2 Body Location PROM flexion, abduction Body Position Hooklying Comments FF 112 deg, abd 95 deg w/ ebow bent PT-OP-R Modalities Start: 10/06/20 07:42 Freq: Status: Active Protocol: Document 03/16/21 15:00 ER (Rec: 03/16/21 15:58 ER [id number]) Hot Pack/Cold Pack Treatment cryocuff Patient Position Sitting Patient Tolerance Good Comments Good feedback response. PT-OP-T Assessment and Plan Start: 10/06/20 07:42 Freq: Status: Active Protocol: Document 03/18/21 14:30 AMB (Rec: 03/18/21 15:34 AMB [id number]) Physical Therapy Assessment Goals Three Impairment Pain Short Term Goal (STG) Flynn will improve his shoulder strength and ROM so that he can wash his back without shoulder pain. STG Duration 6 weeks Passenger Service Supervisor Goal (LTG) Flynn will lift his arm over head without pain so that he can return to work without shoulder pain. LTG Duration 12 weeks Two Impairment Strength Short Term Goal (STG) Flynn will improve his R shoulder strength to 4/5 in all planes. STG Duration 6 weeks Passenger Service Supervisor Goal (LTG) Flynn will lift 10# to shoulder height without an increase in shoulder pain. LTG Duration 12 weeks One Impairment ROM Short Term Goal (STG) Flynn will improve his shoulder flexion (active) to 160 degrees. STG Duration 6 weeks Assessment Summary Assessment Pt is slowly improving with flexion but active range remains limited. Next week can progress per protocol but will need to continue to be conservative given pt's continued limited active range . Physical Therapy Plan Frequency and Duration Frequency of Treatment 2x/Week Duration of Treatment 12 weeks Plan of Care Start Date 02/09/21 Plan of Care End Date 05/04/21 Therapeutic Interventions Therapeutic Interventions Aquatic Therapy,Home Exercise Program,Joint Mobilizations, Manual Therapy,Neuromuscular Re-education,Self-Care/Home Management,Therapeutic Activities,Therapeutic Exercises Modalities Cold Pack/Ice Massage,Electric Stimulation,Hot Packs Next Visit Focus/Plan Next Note Type Treatment Note Next Visit Plan Recheck: scar, pulleys, wall walk flexion. Will be 8 weeks +post op at next visit at which point can progress stages per protocol. Protocol still states not to force PROM with ER and abduction.
--- NOTE | 2021-03-23 14:51 | PT-OP ANOTE ---
Pt called early am to cancel same day appt due to sore throat, coughing and unable to attend today's appt. Confirmed Wed appt but if not feeling better, is aware to call and cancel appt as soon as known.
--- NOTE | 2021-03-27 15:13 | PT-OP ANOTE ---
Pt no showed appt today. Called and left voicemail. Pt called back, he is still sick, does expect to be better by next Tuesday when next appt is scheduled, did ask him to call and cancel if he still has symptoms.
--- NOTE | 2021-03-31 14:30 | PT.OTN ---
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 note protocol states to wear sling for 4 weeks and allows elbow ROM but pt notes that he was told by surgeon to wear sling for 6 weeks and not to actively use elbow as he had more surgery that what was expected. 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 Had a MRI at [facility], Per pt report showed bicep tendon tear and labrum tear per pt report. Considering surgery. Does have ankylosing spondylitis. Not currently working because has a 10# lifting restriction and they don' t have work that can accomodate that. R shoulder stiffness currently. Difficulty sleeping. 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 Treatment Goals Patient/Caregiver Goals Reduce R shoulder pain returnt to work. Prior Functional Status Baseline Function- ADL's Independent Baseline Function- Mobility Independent Current Functional Impairments (Reported) Functional Limitations- ADL's Difficult lifting arm, lifting objects even of light weight (groceries) Personal Factors Other Personal Factors That May Effect Ankylosing spondylitis Therapy/Recovery PT-OP-C Subjective Start: 10/06/20 07:42 Freq: Status: Active Protocol: Document 03/31/21 13:48 SP (Rec: 03/31/21 14:56 SP [id number]) OP-PT Subjective Patient Comments Patient Comments Pt states feeling alot better and sorry missed last 2 appts. Had some pain over lateral posterior R shld when went to hug . PT-OP-F Manual Assessment Start: 10/06/20 07:42 Freq: Status: Active Protocol: Document 10/06/20 09:00 AMB (Rec: 10/07/20 08:58 AMB [email or web address]) Manual Assessments Other Manual Assessments Other Manual Assessments Tenderness at acromion, attachment of long head of biceps, and throughout scapular muscles and upper traps. PT-OP-J Posture/Palpation/Skin Start: 10/06/20 07:42 Freq: Status: Active Protocol: Document 10/06/20 09:00 AMB (Rec: 10/07/20 08:58 AMB [email or web address]) Posture Evaluation Comments Posture Comments Flat lumbar and thoracic spine PT-OP-K Range of Motion Start: 10/06/20 07:42 Freq: Status: Active Protocol: Document 03/31/21 13:48 SP (Rec: 03/31/21 14:56 SP [id number]) Shoulder Goniometric Range of Motion Shoulder R PROM Shoulder ROM WFL No Testing Position Supine Flexion 136 Abduction 119 External Rotation at 0 degrees Abduction 44 Internal Rotation Behind Back (text) R lateral sacrum Comments PROM ABD elbow bent 90 deg, ER gentle arm at side. Stranding AROM ( b arms together): R UE 138 deg against gravity PT-OP-L Special Tests Start: 10/06/20 07:42 Freq: Status: Active Protocol: Document 02/09/21 16:06 AMB (Rec: 02/09/21 16:06 AMB [email or web address]) Special Tests Shoulder Special Tests Neer Impingement Comments not performed due to precautions [place] Impingement Comments not performed due to precautions PT-OP-M Strength Start: 10/06/20 07:42 Freq: Status: Active Protocol: Document 02/09/21 16:06 AMB (Rec: 02/09/21 16:06 AMB [email or web address]) Shoulder Strength Shoulder Manual Muscle Testing Left Comments not tested due to precautions PT-OP-Q Treatments Start: 10/06/20 07:42 Freq: Status: Active Protocol: Document 03/31/21 13:48 SP (Rec: 03/31/21 14:56 SP [id number]) Therapeutic Exercises Supine Exercises FF OH Supine Exercise Name w/ cane ( IR thumbs back) Side bilateral Reps/Minutes x10 Comments improved ROM ABCs Supine Exercise Name added to HEP Side right Reps/Minutes A-Z Comments painfree Serratus press Supine Exercise Name forward punch Side right Reps/Minutes 10x Comments no pain reported today Sidelying Exercises HABD/ open book Sidelying Exercise Name pain free range (cued head with arm) Side right Resistance added to HEP Equipment Used almost painfree just challenging Reps/Minutes x3 reps Comments good scapulothoracic glide, cued rhomboid facilitation return- tiring ER Side right Resistance AROM> 1# DB Reps/Minutes x10 Comments cued rhomboid facilitation- improved no pain eccentric return Standing Exercises posterior capsule stretch/ HADD Standing Exercise Name added to HEP (good gentle posterior shld stretch) Side right Equipment Used LUE support RUE, mirror for self feedback alignment Reps/Minutes x2 , 10 sec hold Comments cued trunk alignment, gentle ROM- not over pressure, painfree R shld IR Standing Exercise Name added to HEP Side right Resistance AAROM Equipment Used towel, mirror for self trunk alignment feedback Reps/Minutes 3 reps Comments LUE assist RUE across pelvis, got R lateral sacrum today- good response Wall Walking into flexion Standing Exercise Name FF Side right Resistance AAROM Equipment Used on wall Reps/Minutes 3 reps each -pause at breath when compenating Comments able do self today self STMs Standing Exercise Name infraspinatus, inter scap, UT- discussed do at home for lessen tightness Side right Equipment Used racquetball in sock roll on wall using LUE, RUE at side Reps/Minutes not performed Comments good feedback response is helpful at home pendulum Standing Exercise Name f, b, circular, performed in sitting Side right Resistance PROM Reps/Minutes x 5 reps each direction Comments performed after wall walking FF, ABD Standing Exercise Name FF only today Side right Resistance AROM Equipment Used mirror for self corrections Reps/Minutes x3 reps Comments cued no UT recruitment eccentric directioning- improved 138 deg Lateral wall walking Standing Exercise Name Reviewed HEP Side bilateral Resistance AAROM Equipment Used on wall Reps/Minutes x2 Comments cued stop rest at compensating range infer depression then progress ROM Manual Therapy Treatment Soft Tissue Mobilization Shoulder Body Location deltoid, biceps, infraspinatus Mobilization Type Oscillations,Rolling,Sustained Pressure Intensity/Depth Moderate Body Position Hooklying Joint Mobilizations 2 Joint R GH Jt gentle Direction posterior, inferior Grade I Body Position Hooklying Comments good feedback tolerance, relaxing PT-OP-R Modalities Start: 10/06/20 07:42 Freq: Status: Active Protocol: Document 03/16/21 15:00 ER (Rec: 03/16/21 15:58 ER [id number]) Hot Pack/Cold Pack Treatment cryocuff Patient Position Sitting Patient Tolerance Good Comments Good feedback response. PT-OP-T Assessment and Plan Start: 10/06/20 07:42 Freq: Status: Active Protocol: Document 03/31/21 13:48 SP (Rec: 03/31/21 14:56 SP [id number]) Physical Therapy Assessment Goals Three Impairment Pain Short Term Goal (STG) Flynn will improve his shoulder strength and ROM so that he can wash his back without shoulder pain. 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 LTG Duration 12 weeks Two Impairment Strength Short Term Goal (STG) Flynn will improve his R shoulder strength to 4/5 in all planes. STG Duration 6 weeks Team Truck Driver Goal (LTG) Flynn will lift 10# to shoulder height without an increase in shoulder pain. LTG Duration 12 weeks One Impairment ROM Short Term Goal (STG) Flynn will improve his shoulder flexion (active) to 160 degrees. STG Duration 6 weeks Assessment Summary Assessment Pt improved in R shld AROM FF 138 deg AROM and lateral R pelvis standing, supine 136 deg PROM FF ABD PROM 119 deg, ER 44 deg painfree gentle ROM. Tx focused on HEP review and progressed added open book/ HABD, ABCs supine, ABD and ER on side w/ cues rhomboid facilitation with improved painfree, initiated R shld IR and cross body stretch with good feedback results able to move shouluder more today. He stated will probably sore but felt good, will add ice later if needed. Physical Therapy Plan Frequency and Duration Frequency of Treatment 2x/Week Duration of Treatment 12 weeks Plan of Care Start Date 02/09/21 Plan of Care End Date 05/04/21 Therapeutic Interventions Therapeutic Interventions Aquatic Therapy,Home Exercise Program,Joint Mobilizations, Manual Therapy,Neuromuscular Re-education,Self-Care/Home Management,Therapeutic Activities,Therapeutic Exercises Modalities Cold Pack/Ice Massage,Electric Stimulation,Hot Packs Next Visit Focus/Plan Next Note Type Treatment Note Next Visit Plan Recheck: HEP added last tx: open book, IR towel, supine ABCs, continue walking, FF/ ABD OH. POC: 8 weeks +post op 03/31/21 : progress stages per protocol. Protocol still states not to force PROM with ER and abduction.
--- NOTE | 2021-04-02 16:02 | PT.OTN ---
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 Had a MRI at [facility], Per pt report showed bicep tendon tear and labrum tear per pt report. Considering surgery. Does have ankylosing spondylitis. Not currently working because has a 10# lifting restriction and they don' t have work that can accomodate that. R shoulder stiffness currently. Difficulty sleeping. 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 Treatment Goals Patient/Caregiver Goals Reduce R shoulder pain returnt to work. Prior Functional Status Baseline Function- ADL's Independent Baseline Function- Mobility Independent Current Functional Impairments (Reported) Functional Limitations- ADL's Difficult lifting arm, lifting objects even of light weight (groceries) Personal Factors Other Personal Factors That May Effect Ankylosing spondylitis Therapy/Recovery PT-OP-C Subjective Start: 10/06/20 07:42 Freq: Status: Active Protocol: Document 04/02/21 14:30 AMB (Rec: 04/02/21 16:02 AMB [email or web address]) OP-PT Subjective Patient Comments Patient Comments Flynn states he is doing better, continues to have difficulty sleeping, but is able to use shoulder a bit more, not really to lift anything yet. PT-OP-F Manual Assessment Start: 10/06/20 07:42 Freq: Status: Active Protocol: Document 10/06/20 09:00 AMB (Rec: 10/07/20 08:58 AMB [email or web address]) Manual Assessments Other Manual Assessments Other Manual Assessments Tenderness at acromion, attachment of long head of biceps, and throughout scapular muscles and upper traps. PT-OP-J Posture/Palpation/Skin Start: 10/06/20 07:42 Freq: Status: Active Protocol: Document 10/06/20 09:00 AMB (Rec: 10/07/20 08:58 AMB [email or web address]) Posture Evaluation Comments Posture Comments Flat lumbar and thoracic spine PT-OP-K Range of Motion Start: 10/06/20 07:42 Freq: Status: Active Protocol: Document 03/31/21 13:48 SP (Rec: 03/31/21 14:56 SP [id number]) Shoulder Goniometric Range of Motion Shoulder R PROM Shoulder ROM WFL No Testing Position Supine Flexion 136 Abduction 119 External Rotation at 0 degrees Abduction 44 Internal Rotation Behind Back (text) R lateral sacrum Comments PROM ABD elbow bent 90 deg, ER gentle arm at side. Stranding AROM ( b arms together): R UE 138 deg against gravity PT-OP-L Special Tests Start: 10/06/20 07:42 Freq: Status: Active Protocol: Document 02/09/21 16:06 AMB (Rec: 02/09/21 16:06 AMB [email or web address]) Special Tests Shoulder Special Tests Neer Impingement Comments not performed due to precautions [place] Impingement Comments not performed due to precautions PT-OP-M Strength Start: 10/06/20 07:42 Freq: Status: Active Protocol: Document 02/09/21 16:06 AMB (Rec: 02/09/21 16:06 AMB [email or web address]) Shoulder Strength Shoulder Manual Muscle Testing Left Comments not tested due to precautions PT-OP-Q Treatments Start: 10/06/20 07:42 Freq: Status: Active Protocol: Document 04/02/21 14:30 AMB (Rec: 04/02/21 16:00 AMB [email or web address]) Therapeutic Exercises Prone Exercises 1 Prone Exercise Name I,Y,T, rows Reps/Minutes 10 ea AROM Comments cued scap retract Sidelying Exercises HABD/ open book Sidelying Exercise Name pain free range (cued head with arm) Side right Resistance added to HEP Reps/Minutes 5 ER Side right Resistance 1# DB Reps/Minutes 2x10 Comments cued rhomboid facilitation- improved no pain eccentric return Standing Exercises 2 Standing Exercise Name shoulder flexion Resistance #1 t band Reps/Minutes 10 Comments 0-30d 1 Standing Exercise Name t band ER Resistance #2 t band Reps/Minutes 10 Comments cued form PT-OP-R Modalities Start: 10/06/20 07:42 Freq: Status: Active Protocol: Document 03/16/21 15:00 ER (Rec: 03/16/21 15:58 ER [id number]) Hot Pack/Cold Pack Treatment cryocuff Patient Position Sitting Patient Tolerance Good Comments Good feedback response. PT-OP-T Assessment and Plan Start: 10/06/20 07:42 Freq: Status: Active Protocol: Document 04/02/21 14:30 AMB (Rec: 04/02/21 16:00 AMB [email or web address]) Physical Therapy Assessment Goals Three Impairment Pain Short Term Goal (STG) Flynn will improve his shoulder strength and ROM so that he can wash his back without shoulder pain. STG Duration 6 weeks Fpc Goal (LTG) Flynn will lift his arm over head without pain so that he can return to work without shoulder pain. LTG Duration 12 weeks Two Impairment Strength Short Term Goal (STG) Flynn will improve his R shoulder strength to 4/5 in all planes. STG Duration 6 weeks Fpc Goal (LTG) Flynn will lift 10# to shoulder height without an increase in shoulder pain. LTG Duration 12 weeks One Impairment ROM Short Term Goal (STG) Flynn will improve his shoulder flexion (active) to 160 degrees. STG Duration 6 weeks Assessment Summary Assessment Pt doing well with current HEP , AROM flexion improving. Pt reports he saw ortho and got the clear to lift up to 5#. Physical Therapy Plan Next Visit Focus/Plan Next Note Type Treatment Note Next Visit Plan Recheck HEP additions of t band ER and I and Y AROM.
--- NOTE | 2021-04-06 13:20 | PT-OP ANOTE ---
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
--- NOTE | 2021-04-09 15:39 | PT.OTN ---
Current Diagnoses Impingement syndrome of right shoulder (04/09/21) Strain of muscle(s) and tendon(s) of the rotator cuff of right shoulder, subsequent encounter (04/09/21) Physical Therapy Treatment Note PT-OP-A Visit Information Start: 10/06/20 07:42 Freq: Status: Active Protocol: Document 04/09/21 14:30 AMB (Rec: 04/09/21 15:37 AMB [id number]) Out-Patient Physical Therapy Visit Information Visit Information Visit Type Treatment Note Visit Start Time 14:30 Visit Stop Time 15:15 Total Visit Minutes 45 Visit Number 34 PT-OP-B Current Condition Start: 10/06/20 07:42 Freq: Status: Active Protocol: Document 10/06/20 09:00 AMB (Rec: 10/06/20 09:15 AMB [id number]) Current Condition History of Current Condition Onset Date 08/15/20 Current Complaints R shoulder pain History of Current Condition 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 Had a MRI at [facility], Per pt report showed bicep tendon tear and labrum tear per pt report. Considering surgery. Does have ankylosing spondylitis. Not currently working because has a 10# lifting restriction and they don' t have work that can accomodate that. R shoulder stiffness currently. Difficulty sleeping. 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 Treatment Goals Patient/Caregiver Goals Reduce R shoulder pain returnt to work. Prior Functional Status Baseline Function- ADL's Independent Baseline Function- Mobility Independent Current Functional Impairments (Reported) Functional Limitations- ADL's Difficult lifting arm, lifting objects even of light weight (groceries) Personal Factors Other Personal Factors That May Effect Ankylosing spondylitis Therapy/Recovery PT-OP-C Subjective Start: 10/06/20 07:42 Freq: Status: Active Protocol: Document 04/09/21 14:30 AMB (Rec: 04/09/21 15:37 AMB [id number]) OP-PT Subjective Patient Comments Patient Comments Flynn is feeling sore today after sleeping poorly on his shoulder but otherwise is doing good. Has been doing I, Y,T at home and that is going well. PT-OP-F Manual Assessment Start: 10/06/20 07:42 Freq: Status: Active Protocol: Document 10/06/20 09:00 AMB (Rec: 10/07/20 08:58 AMB [email or web address]) Manual Assessments Other Manual Assessments Other Manual Assessments Tenderness at acromion, attachment of long head of biceps, and throughout scapular muscles and upper traps. PT-OP-J Posture/Palpation/Skin Start: 10/06/20 07:42 Freq: Status: Active Protocol: Document 10/06/20 09:00 AMB (Rec: 10/07/20 08:58 AMB [email or web address]) Posture Evaluation Comments Posture Comments Flat lumbar and thoracic spine PT-OP-K Range of Motion Start: 10/06/20 07:42 Freq: Status: Active Protocol: Document 03/31/21 13:48 SP (Rec: 03/31/21 14:56 SP [id number]) Shoulder Goniometric Range of Motion Shoulder R PROM Shoulder ROM WFL No Testing Position Supine Flexion 136 Abduction 119 External Rotation at 0 degrees Abduction 44 Internal Rotation Behind Back (text) R lateral sacrum Comments PROM ABD elbow bent 90 deg, ER gentle arm at side. Stranding AROM ( b arms together): R UE 138 deg against gravity PT-OP-L Special Tests Start: 10/06/20 07:42 Freq: Status: Active Protocol: Document 02/09/21 16:06 AMB (Rec: 02/09/21 16:06 AMB [email or web address]) Special Tests Shoulder Special Tests Neer Impingement Comments not performed due to precautions [place] Impingement Comments not performed due to precautions PT-OP-M Strength Start: 10/06/20 07:42 Freq: Status: Active Protocol: Document 02/09/21 16:06 AMB (Rec: 02/09/21 16:06 AMB [email or web address]) Shoulder Strength Shoulder Manual Muscle Testing Left Comments not tested due to precautions PT-OP-Q Treatments Start: 10/06/20 07:42 Freq: Status: Active Protocol: Document 04/09/21 14:30 AMB (Rec: 04/09/21 15:37 AMB [id number]) Therapeutic Exercises Supine Exercises 1 Supine Exercise Name Flexion Resistance AROM Reps/Minutes 2x10 Comments feels a little in shoulder with this Sidelying Exercises HABD/ open book Sidelying Exercise Name pain free range (cued head with arm) Side right Resistance added to HEP Reps/Minutes 10 ER Side right Resistance 1# DB Reps/Minutes 2x10 Comments cued rhomboid facilitation- improved no pain eccentric return 3 Sidelying Exercise Name abduction AROM Resistance AROM Reps/Minutes 2x10 Comments ~0-120 Sitting Exercises pulleys Sitting Exercise Name FF, scaption Side right Reps/Minutes x10 ea, Comments FF, scaption, added IR Standing Exercises R shld IR Side right Resistance #1 t band Reps/Minutes 2x10 9 Standing Exercise Name t band extension Resistance #2 band Reps/Minutes 2x10 8 Standing Exercise Name rows t band Resistance #2 band Reps/Minutes 2x10 1 Standing Exercise Name t band ER Resistance #2 t band Reps/Minutes 10 Comments cued form PT-OP-R Modalities Start: 10/06/20 07:42 Freq: Status: Active Protocol: Document 03/16/21 15:00 ER (Rec: 03/16/21 15:58 ER [id number]) Hot Pack/Cold Pack Treatment cryocuff Patient Position Sitting Patient Tolerance Good Comments Good feedback response. PT-OP-T Assessment and Plan Start: 10/06/20 07:42 Freq: Status: Active Protocol: Document 04/09/21 14:30 AMB (Rec: 04/09/21 15:37 AMB [id number]) Physical Therapy Assessment Goals Three Impairment Pain Short Term Goal (STG) Flynn will improve his shoulder strength and ROM so that he can wash his back without shoulder pain. STG Duration 6 weeks Interpreter Goal (LTG) Flynn will lift his arm over head without pain so that he can return to work without shoulder pain. LTG Duration 12 weeks Two Impairment Strength Short Term Goal (STG) Flynn will improve his R shoulder strength to 4/5 in all planes. STG Duration 6 weeks Interpreter Goal (LTG) Flynn will lift 10# to shoulder height without an increase in shoulder pain. LTG Duration 12 weeks One Impairment ROM Short Term Goal (STG) Flynn will improve his shoulder flexion (active) to 160 degrees. STG Duration 6 weeks Assessment Summary Assessment T band exercises are going well. Pt ROM progressing, but abduction continues to be weak, especially with overhead . Physical Therapy Plan Next Visit Focus/Plan Next Note Type Treatment Note Next Visit Plan Progress strengthening as tolerated, progress flexion ROM
--- NOTE | 2021-04-20 15:45 | PT.OTN ---
Current Diagnoses Impingement syndrome of right shoulder (04/20/21) Strain of muscle(s) and tendon(s) of the rotator cuff of right shoulder, subsequent encounter (04/20/21) Physical Therapy Treatment Note PT-OP-A Visit Information Start: 10/06/20 07:42 Freq: Status: Active Protocol: Document 04/20/21 15:08 SP (Rec: 04/20/21 15:52 SP [id number]) Out-Patient Physical Therapy Visit Information Visit Information Visit Type Treatment Note Visit Note pt 8 min late for appt today. 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 note protocol states to wear sling for 4 weeks and allows elbow ROM but pt notes that he was told by surgeon to wear sling for 6 weeks and not to actively use elbow as he had more surgery that what was expected. 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 Had a MRI at [facility], Per pt report showed bicep tendon tear and labrum tear per pt report. Considering surgery. Does have ankylosing spondylitis. Not currently working because has a 10# lifting restriction and they don' t have work that can accomodate that. R shoulder stiffness currently. Difficulty sleeping. 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 Treatment Goals Patient/Caregiver Goals Reduce R shoulder pain returnt to work. Prior Functional Status Baseline Function- ADL's Independent Baseline Function- Mobility Independent Current Functional Impairments (Reported) Functional Limitations- ADL's Difficult lifting arm, lifting objects even of light weight (groceries) Personal Factors Other Personal Factors That May Effect Ankylosing spondylitis Therapy/Recovery PT-OP-C Subjective Start: 10/06/20 07:42 Freq: Status: Active Protocol: Document 04/20/21 15:08 SP (Rec: 04/20/21 15:52 SP [id number]) OP-PT Subjective Patient Comments Patient Comments Pt reports sorry late over slept. Finds PT-OP-F Manual Assessment Start: 10/06/20 07:42 Freq: Status: Active Protocol: Document 10/06/20 09:00 AMB (Rec: 10/07/20 08:58 AMB [email or web address]) Manual Assessments Other Manual Assessments Other Manual Assessments Tenderness at acromion, attachment of long head of biceps, and throughout scapular muscles and upper traps. PT-OP-J Posture/Palpation/Skin Start: 10/06/20 07:42 Freq: Status: Active Protocol: Document 10/06/20 09:00 AMB (Rec: 10/07/20 08:58 AMB [email or web address]) Posture Evaluation Comments Posture Comments Flat lumbar and thoracic spine PT-OP-K Range of Motion Start: 10/06/20 07:42 Freq: Status: Active Protocol: Document 03/31/21 13:48 SP (Rec: 03/31/21 14:56 SP [id number]) Shoulder Goniometric Range of Motion Shoulder R PROM Shoulder ROM WFL No Testing Position Supine Flexion 136 Abduction 119 External Rotation at 0 degrees Abduction 44 Internal Rotation Behind Back (text) R lateral sacrum Comments PROM ABD elbow bent 90 deg, ER gentle arm at side. Stranding AROM ( b arms together): R UE 138 deg against gravity PT-OP-L Special Tests Start: 10/06/20 07:42 Freq: Status: Active Protocol: Document 02/09/21 16:06 AMB (Rec: 02/09/21 16:06 AMB [email or web address]) Special Tests Shoulder Special Tests Neer Impingement Comments not performed due to precautions [place] Impingement Comments not performed due to precautions PT-OP-M Strength Start: 10/06/20 07:42 Freq: Status: Active Protocol: Document 02/09/21 16:06 AMB (Rec: 02/09/21 16:06 AMB [email or web address]) Shoulder Strength Shoulder Manual Muscle Testing Left Comments not tested due to precautions PT-OP-Q Treatments Start: 10/06/20 07:42 Freq: Status: Active Protocol: Document 04/20/21 15:08 SP (Rec: 04/20/21 15:52 SP [id number]) Therapeutic Exercises Supine Exercises FF OH Supine Exercise Name w/ cane ( IR thumbs back) Side bilateral Equipment Used dowel Reps/Minutes 2x5 reps Comments improved AROM 140 deg pre manual, 151 deg post manual Prone Exercises 1 Prone Exercise Name I,T, Ys, rows Resistance AROM Reps/Minutes 10 reps ea, 20 sec rest for tiring recovery Comments cued scap retract/rhomboid assist Sidelying Exercises HABD/ open book Sidelying Exercise Name pain free range (cued head with arm) Side right Resistance AROM> #1DB Reps/Minutes 10 Comments mid range to bent arm/ hand- weak rhomboids cued slow eccentric control ER Side right Resistance 2# DB Reps/Minutes 2x10 Comments cued rhomboid facilitation- improved no pain eccentric return, elbow at hip Standing Exercises R shld IR Side right Resistance #1 t band Reps/Minutes 2x10 Wall Walking into flexion Standing Exercise Name FF wall slides Side right Resistance AAROM Equipment Used at corner wall/doorway Reps/Minutes 3 reps each -pause at breath when compenating Comments able to do at doorway and able to wt shift forward R elbow ext isometric Standing Exercise Name added to HEP Side right Resistance TB #1 Equipment Used small step out 1 step Reps/Minutes x10 Comments cued hand out neutral 9 Standing Exercise Name t band extension Resistance #2 band Reps/Minutes 2x10 Comments cued scap retract/ depress stabilization eccentric return 8 Standing Exercise Name rows t band Resistance #2 band Reps/Minutes 2x10 3 Standing Exercise Name forward punch, bicycle motion Resistance TB #1 Reps/Minutes x10 Comments painfree, reported tiring, cued tall posture 2 Standing Exercise Name repeat next tx 1 Standing Exercise Name t band ER Resistance #2 t band Equipment Used towel roll under arm Reps/Minutes 10 Comments cued form Manual Therapy Treatment Soft Tissue Mobilization Shoulder Body Location R deltoid, subscap, infraspinatus Mobilization Type Strumming,Sustained Pressure Intensity/Depth Moderate Body Position Hooklying Joint Mobilizations 2 Joint R GH Jt gentle Direction posterior, inferior Grade I Body Position Hooklying Comments good feedback tolerance, relaxing Able increase FF ROM post PT-OP-R Modalities Start: 10/06/20 07:42 Freq: Status: Active Protocol: Document 03/16/21 15:00 ER (Rec: 03/16/21 15:58 ER [id number]) Hot Pack/Cold Pack Treatment cryocuff Patient Position Sitting Patient Tolerance Good Comments Good feedback response. PT-OP-T Assessment and Plan Start: 10/06/20 07:42 Freq: Status: Active Protocol: Document 04/20/21 15:08 SP (Rec: 04/20/21 15:52 SP [id number]) Physical Therapy Assessment Goals Three Impairment Pain Short Term Goal (STG) Flynn will improve his shoulder strength and ROM so that he can wash his back without shoulder pain. STG Duration 6 weeks Saw Straightener Goal (LTG) Flynn will lift his arm over head without pain so that he can return to work without shoulder pain. LTG Duration 12 weeks Two Impairment Strength Short Term Goal (STG) Flynn will improve his R shoulder strength to 4/5 in all planes. STG Duration 6 weeks [facility] Goal (LTG) Flynn will lift 10# to shoulder height without an increase in shoulder pain. LTG Duration 12 weeks One Impairment ROM Short Term Goal (STG) Flynn will improve his shoulder flexion (active) to 160 degrees. STG Duration 6 weeks Assessment Summary Assessment Pt improving in AAROM 151 deg FF in supine using dowel support. He able to progress 2 # DB during shld ER and 1# DB HABD mid range tiring weakness reported but good effort. Physical Therapy Plan Frequency and Duration Frequency of Treatment 2x/Week Duration of Treatment 12 weeks Plan of Care Start Date 02/09/21 Plan of Care End Date 05/04/21 Therapeutic Interventions Therapeutic Interventions Aquatic Therapy,Home Exercise Program,Joint Mobilizations, Manual Therapy,Neuromuscular Re-education,Self-Care/Home Management,Therapeutic Activities,Therapeutic Exercises Modalities Cold Pack/Ice Massage,Electric Stimulation,Hot Packs Next Visit Focus/Plan Next Note Type Treatment Note Next Visit Plan Recheck TB bicycle warm up. POCP Progress strengthening as tolerated, progress flexion ROM
--- NOTE | 2021-04-27 08:15 | PT.OTN ---
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 note protocol states to wear sling for 4 weeks and allows elbow ROM but pt notes that he was told by surgeon to wear sling for 6 weeks and not to actively use elbow as he had more surgery that what was expected. 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 Had a MRI at [facility], Per pt report showed bicep tendon tear and labrum tear per pt report. Considering surgery. Does have ankylosing spondylitis. Not currently working because has a 10# lifting restriction and they don' t have work that can accomodate that. R shoulder stiffness currently. Difficulty sleeping. 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 Treatment Goals Patient/Caregiver Goals Reduce R shoulder pain returnt to work. Prior Functional Status Baseline Function- ADL's Independent Baseline Function- Mobility Independent Current Functional Impairments (Reported) Functional Limitations- ADL's Difficult lifting arm, lifting objects even of light weight (groceries) Personal Factors Other Personal Factors That May Effect Ankylosing spondylitis Therapy/Recovery PT-OP-C Subjective Start: 10/06/20 07:42 Freq: Status: Active Protocol: Document 04/27/21 07:30 SP (Rec: 04/27/21 08:19 SP [id number]) OP-PT Subjective Patient Comments Patient Comments Pt reported getting some pain in medial R elbow when straightens the elbow. Pt reported didn't sleeping well, usually sleeps on couch more comfortable, family visiting sleeping on couch so sleeping in bed with PT-OP-F Manual Assessment Start: 10/06/20 07:42 Freq: Status: Active Protocol: Document 10/06/20 09:00 AMB (Rec: 10/07/20 08:58 AMB [email or web address]) Manual Assessments Other Manual Assessments Other Manual Assessments Tenderness at acromion, attachment of long head of biceps, and throughout scapular muscles and upper traps. PT-OP-J Posture/Palpation/Skin Start: 10/06/20 07:42 Freq: Status: Active Protocol: Document 10/06/20 09:00 AMB (Rec: 10/07/20 08:58 AMB [email or web address]) Posture Evaluation Comments Posture Comments Flat lumbar and thoracic spine PT-OP-K Range of Motion Start: 10/06/20 07:42 Freq: Status: Active Protocol: Document 03/31/21 13:48 SP (Rec: 03/31/21 14:56 SP [id number]) Shoulder Goniometric Range of Motion Shoulder R PROM Shoulder ROM WFL No Testing Position Supine Flexion 136 Abduction 119 External Rotation at 0 degrees Abduction 44 Internal Rotation Behind Back (text) R lateral sacrum Comments PROM ABD elbow bent 90 deg, ER gentle arm at side. Stranding AROM ( b arms together): R UE 138 deg against gravity PT-OP-L Special Tests Start: 10/06/20 07:42 Freq: Status: Active Protocol: Document 02/09/21 16:06 AMB (Rec: 02/09/21 16:06 AMB [email or web address]) Special Tests Shoulder Special Tests Neer Impingement Comments not performed due to precautions [place] Impingement Comments not performed due to precautions PT-OP-M Strength Start: 10/06/20 07:42 Freq: Status: Active Protocol: Document 02/09/21 16:06 AMB (Rec: 02/09/21 16:06 AMB [email or web address]) Shoulder Strength Shoulder Manual Muscle Testing Left Comments not tested due to precautions PT-OP-Q Treatments Start: 10/06/20 07:42 Freq: Status: Active Protocol: Document 04/27/21 07:30 SP (Rec: 04/27/21 08:19 SP [id number]) Therapeutic Exercises Sidelying Exercises HABD/ open book Sidelying Exercise Name pain free range (cued head with arm) Side right Resistance #1DB Reps/Minutes 10 Comments cued slow eccentric control, comfortable range (little past trunk) Sitting Exercises pulleys Sitting Exercise Name FF 170*, ABD 165*, IR standing upper lumbar Side right Resistance AAROM Reps/Minutes x10 ea, Standing Exercises Wall Walking into flexion Standing Exercise Name FF wall slides (157*) Side right Resistance AAROM Equipment Used at corner wall/doorway Reps/Minutes 3 reps each -pause at breath when compenating Comments able to do at doorway and able to wt shift forward FF, ABD Standing Exercise Name FF, scaption Side right Resistance #1 Equipment Used mirror for self corrections Reps/Minutes x10 each direction Comments painfree good form, tiring 8 Standing Exercise Name rows t band Resistance #2 band Reps/Minutes 2x10 3 Standing Exercise Name forward punch, bicycle motion Resistance TB #1 Reps/Minutes x10 Comments painfree, reported tiring, little start of twinge but ok, cued tall posture 1 Standing Exercise Name t band ER Resistance #1 t band Equipment Used towel roll under arm Reps/Minutes 2x8 Comments painfree, cued neutral wrist Other Exercises 1/2 knee eccentric R shld flexion, ABD Other Exercise Name added to HEP Side right Resistance TB #1 Equipment Used oval pad under R knee Reps/Minutes x10 Comments cued postural alignment, slow eccentric control Manual Therapy Treatment Soft Tissue Mobilization R elbow Body Location CET, bicep Mobilization Type Cross-Friction,Strumming, Sustained Pressure Intensity/Depth Moderate Body Position Supine Comments good feedback response, instructed MWM sustained pressure wrist pron/ sup, stretching bicep post Joint Mobilizations humerounlar jt Joint R Direction inferior Grade II Body Position Supine Reps/Duration 1 min Comments not significant reduction in tightness. PT-OP-R Modalities Start: 10/06/20 07:42 Freq: Status: Active Protocol: Document 03/16/21 15:00 ER (Rec: 03/16/21 15:58 ER [id number]) Hot Pack/Cold Pack Treatment cryocuff Patient Position Sitting Patient Tolerance Good Comments Good feedback response. PT-OP-T Assessment and Plan Start: 10/06/20 07:42 Freq: Status: Active Protocol: Document 04/27/21 07:30 SP (Rec: 04/27/21 08:19 SP [id number]) Physical Therapy Assessment Goals Three Impairment Pain Short Term Goal (STG) Flynn will improve his shoulder strength and ROM so that he can wash his back without shoulder pain. STG Duration 6 weeks .Net Programmer Goal (LTG) Flynn will lift his arm over head without pain so that he can return to work without shoulder pain. LTG Duration 12 weeks Two Impairment Strength Short Term Goal (STG) Flynn will improve his R shoulder strength to 4/5 in all planes. STG Duration 6 weeks Snf Goal (LTG) Flynn will lift 10# to shoulder height without an increase in shoulder pain. LTG Duration 12 weeks One Impairment ROM Short Term Goal (STG) Flynn will improve his shoulder flexion (active) to 160 degrees. STG Duration 6 weeks Assessment Summary Assessment Pt making improvements in AAROM. Pt responded well good tiring work with HEP, initiated eccentric FF and ABD with TB in 1/2 kneel, painfree. Pt reported feeling tightness over CET of R elbow, improved post manual and understanding of self application. Physical Therapy Plan Frequency and Duration Frequency of Treatment 2x/Week Duration of Treatment 12 weeks Plan of Care Start Date 02/09/21 Plan of Care End Date 05/04/21 Therapeutic Interventions Therapeutic Interventions Aquatic Therapy,Home Exercise Program,Joint Mobilizations, Manual Therapy,Neuromuscular Re-education,Self-Care/Home Management,Therapeutic Activities,Therapeutic Exercises Modalities Cold Pack/Ice Massage,Electric Stimulation,Hot Packs Next Visit Focus/Plan Next Note Type Treatment Note Next Visit Plan Recheck 1/2 kneel TB FF, ABD with improved ROM control. POC: Progress strengthening as tolerated, progress flexion ROM
--- NOTE | 2021-04-30 08:50 | PT.OTN ---
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 Had a MRI at [facility], Per pt report showed bicep tendon tear and labrum tear per pt report. Considering surgery. Does have ankylosing spondylitis. Not currently working because has a 10# lifting restriction and they don' t have work that can accomodate that. R shoulder stiffness currently. Difficulty sleeping. 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 Treatment Goals Patient/Caregiver Goals Reduce R shoulder pain returnt to work. Prior Functional Status Baseline Function- ADL's Independent Baseline Function- Mobility Independent Current Functional Impairments (Reported) Functional Limitations- ADL's Difficult lifting arm, lifting objects even of light weight (groceries) Personal Factors Other Personal Factors That May Effect Ankylosing spondylitis Therapy/Recovery PT-OP-C Subjective Start: 10/06/20 07:42 Freq: Status: Active Protocol: Document 04/30/21 08:25 AMB (Rec: 05/01/21 08:37 AMB [id number]) OP-PT Subjective Patient Comments Patient Comments Pt continues to report difficulty sleeping, did have pain with stretching into ER when he did so without thinking when waking up. PT-OP-F Manual Assessment Start: 10/06/20 07:42 Freq: Status: Active Protocol: Document 10/06/20 09:00 AMB (Rec: 10/07/20 08:58 AMB [email or web address]) Manual Assessments Other Manual Assessments Other Manual Assessments Tenderness at acromion, attachment of long head of biceps, and throughout scapular muscles and upper traps. PT-OP-J Posture/Palpation/Skin Start: 10/06/20 07:42 Freq: Status: Active Protocol: Document 10/06/20 09:00 AMB (Rec: 10/07/20 08:58 AMB [email or web address]) Posture Evaluation Comments Posture Comments Flat lumbar and thoracic spine PT-OP-K Range of Motion Start: 10/06/20 07:42 Freq: Status: Active Protocol: Document 04/30/21 08:32 AMB (Rec: 04/30/21 08:38 AMB [id number]) Shoulder Goniometric Range of Motion Shoulder Right Active Flexion 165 Abduction 165 Horizontal Adduction 15 Internal Rotation Behind Back (text) L1 Comments C7 behind neck PT-OP-L Special Tests Start: 10/06/20 07:42 Freq: Status: Active Protocol: Document 02/09/21 16:06 AMB (Rec: 02/09/21 16:06 AMB [email or web address]) Special Tests Shoulder Special Tests Neer Impingement Comments not performed due to precautions [place] Impingement Comments not performed due to precautions PT-OP-M Strength Start: 10/06/20 07:42 Freq: Status: Active Protocol: Document 04/30/21 08:28 AMB (Rec: 04/30/21 08:32 AMB [id number]) Shoulder Strength Shoulder Manual Muscle Testing Right Flexion 4+ Good+ Abduction (C5) 4- Good- External Rotation 4- Good- Internal Rotation 4+ Good+ PT-OP-Q Treatments Start: 10/06/20 07:42 Freq: Status: Active Protocol: Document 04/30/21 08:25 AMB (Rec: 05/01/21 08:37 AMB [id number]) Therapeutic Exercises Sidelying Exercises ER Side right Resistance 2# DB Reps/Minutes 2x10 Comments cued rhomboid facilitation- improved no pain eccentric return, elbow at hip Standing Exercises posterior capsule stretch/ HADD Standing Exercise Name added to HEP (good gentle posterior shld stretch) Side right Reps/Minutes x2 , 10 sec hold Comments cued trunk alignment, gentle ROM- not over pressure, painfree FF, ABD Standing Exercise Name FF, scaption Side right Resistance #1 Equipment Used mirror for self corrections Reps/Minutes x10 each direction Comments to 90 degrees only 1 Standing Exercise Name t band ER Resistance #1 t band Equipment Used towel roll under arm Reps/Minutes 2x8 Comments painfree, cued neutral wrist Other Exercises 1 Other Exercise Name lifting: floor to shoulder height Resistance 5#, 10# Comments close to body= no pain PT-OP-R Modalities Start: 10/06/20 07:42 Freq: Status: Active Protocol: Document 03/16/21 15:00 ER (Rec: 03/16/21 15:58 ER [id number]) Hot Pack/Cold Pack Treatment cryocuff Patient Position Sitting Patient Tolerance Good Comments Good feedback response. PT-OP-T Assessment and Plan Start: 10/06/20 07:42 Freq: Status: Active Protocol: Document 04/30/21 08:26 AMB (Rec: 04/30/21 08:28 AMB [id number]) Physical Therapy Assessment Goals Three Impairment Pain Short Term Goal (STG) Flynn will improve his shoulder strength and ROM so that he can wash his back without shoulder pain. 05/01: Progress made: IR ROM improving, not yet equal to other side, but significantly improved. STG Duration 6 weeks Home Therapy Clinician Goal (LTG) Flynn will lift his arm over head without pain so that he can return to work without shoulder pain. NOT MET YET LTG Duration 12 weeks Two Impairment Strength Short Term Goal (STG) Flynn will improve his R shoulder strength to 4/5 in all planes. 05/01 Progress made: weakness in external rotation and abduction remain. STG Duration 6 weeks Home Therapy Clinician Goal (LTG) Flynn will lift 10# to shoulder height without an increase in shoulder pain. : if he keeps the weight close to his body, but if the weight is slightly away from his torso he cannot do this yet. LTG Duration 12 weeks One Impairment ROM Short Term Goal (STG) Flynn will improve his shoulder flexion (active) to 160 degrees. STG Duration MET Assessment Summary Assessment Flynn's ROM has improved well, although he does not quite have full ROM. We have started to work on light strengthening, but have kept weights fairly light due to shoulder being quick to fatigue. Flynn would continue to benefit from physical therapy as he needs to be able to lift heavy weights frequently to his job and he has not yet progressed to that point, currently he can lift light weights infrequently. Physical Therapy Plan Frequency and Duration Frequency of Treatment 2x/Week Duration of Treatment 8 weeks Plan of Care Start Date 04/30/20 Plan of Care End Date 06/25/21 Therapeutic Interventions Therapeutic Interventions Aquatic Therapy,Home Exercise Program,Joint Mobilizations, Manual Therapy,Neuromuscular Re-education,Self-Care/Home Management,Therapeutic Activities,Therapeutic Exercises Modalities Cold Pack/Ice Massage,Electric Stimulation,Hot Packs Next Visit Focus/Plan Next Note Type Treatment Note Next Visit Plan Review written HEP-provide new handouts if needed for pt to prioritize new exercises, correct number of reps/sets
--- NOTE | 2021-04-30 08:53 | PT.OPPOC ---
Physical, Occupational & Speech Therapy At [facility] Current Diagnoses Impingement syndrome of right shoulder (04/30/21) Strain of muscle(s) and tendon(s) of the rotator cuff of right shoulder, subsequent encounter (04/30/21) Visit Care Team Role Provider Type Ray Stover DO Primary Care Provider Non-Staff Specialty: Medical Address: [address] [place] [address], [place], [address] Fax: Email: Tylor Aguayo MD Attending Provider Non-Staff Referring Provider Specialty: Physical Medicine and Rehab Address: [address] [facility], [place], [address] Email: Plan Of Care PT-OP-T Assessment and Plan Start: 10/06/20 07:42 Freq: Status: Active Protocol: Document 04/30/21 08:26 AMB (Rec: 04/30/21 08:28 AMB [id number]) Physical Therapy Assessment Goals Three Impairment Pain Short Term Goal (STG) Flynn will improve his shoulder strength and ROM so that he can wash his back without shoulder pain. 05/01: Progress made: IR ROM improving, not yet equal to other side, but significantly improved. STG Duration 6 weeks [employer] Goal (LTG) Flynn will lift his arm over head without pain so that he can return to work without shoulder pain. NOT MET YET LTG Duration 12 weeks Two Impairment Strength Short Term Goal (STG) Flynn will improve his R shoulder strength to 4/5 in all planes. 05/01 Progress made: weakness in external rotation and abduction remain. STG Duration 6 weeks Residential Goal (LTG) Flynn will lift 10# to shoulder height without an increase in shoulder pain. : if he keeps the weight close to his body, but if the weight is slightly away from his torso he cannot do this yet. LTG Duration 12 weeks One Impairment ROM Short Term Goal (STG) Flynn will improve his shoulder flexion (active) to 160 degrees. STG Duration MET Assessment Summary Assessment Flynn's ROM has improved well, although he does not quite have full ROM. We have started to work on light strengthening, but have kept weights fairly light due to shoulder being quick to fatigue. Flynn would continue to benefit from physical therapy as he needs to be able to lift heavy weights frequently to his job and he has not yet progressed to that point, currently he can lift light weights infrequently. Physical Therapy Plan Frequency and Duration Frequency of Treatment 2x/Week Duration of Treatment 8 weeks Plan of Care Start Date 04/30/20 Plan of Care End Date 06/25/21 Therapeutic Interventions Therapeutic Interventions Aquatic Therapy,Home Exercise Program,Joint Mobilizations, Manual Therapy,Neuromuscular Re-education,Self-Care/Home Management,Therapeutic Activities,Therapeutic Exercises Modalities Cold Pack/Ice Massage,Electric Stimulation,Hot Packs Next Visit Focus/Plan Next Note Type Treatment Note Next Visit Plan Review written HEP-provide new handouts if needed for pt to prioritize new exercises, correct number of reps/sets Plan of Care Dates Plan of Care Start Date 04/30/20 Plan of Care End Date 06/25/21 Electronically Signed by: Jaz Claire, PT 05/01/21 0853 Please Sign and Return: I have reviewed this Plan of Care and certify that the skilled therapy services above are required to meet the patient?s needs. Physician Signature Date Printed Name and Credentials Clinical Instructor Signature Printed Name and Credentials
--- NOTE | 2021-05-04 13:45 | PT.OTN ---
Current Diagnoses Impingement syndrome of right shoulder (05/04/21) Strain of muscle(s) and tendon(s) of the rotator cuff of right shoulder, subsequent encounter (05/04/21) Physical Therapy Treatment Note PT-OP-A Visit Information Start: 10/06/20 07:42 Freq: Status: Active Protocol: Document 05/04/21 13:05 SP (Rec: 05/04/21 13:53 SP [id number]) Out-Patient Physical Therapy Visit Information Visit Information Visit Type Treatment Note Visit Start Time 13:05 Visit Stop Time 13:45 Total Visit Minutes 40 Visit Number 38 Number of VARNISH THINNER 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 note protocol states to wear sling for 4 weeks and allows elbow ROM but pt notes that he was told by surgeon to wear sling for 6 weeks and not to actively use elbow as he had more surgery that what was expected. 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 Had a MRI at [facility], Per pt report showed bicep tendon tear and labrum tear per pt report. Considering surgery. Does have ankylosing spondylitis. Not currently working because has a 10# lifting restriction and they don' t have work that can accomodate that. R shoulder stiffness currently. Difficulty sleeping. 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 Treatment Goals Patient/Caregiver Goals Reduce R shoulder pain returnt to work. Prior Functional Status Baseline Function- ADL's Independent Baseline Function- Mobility Independent Current Functional Impairments (Reported) Functional Limitations- ADL's Difficult lifting arm, lifting objects even of light weight (groceries) Personal Factors Other Personal Factors That May Effect Ankylosing spondylitis Therapy/Recovery PT-OP-C Subjective Start: 10/06/20 07:42 Freq: Status: Active Protocol: Document 05/04/21 13:05 SP (Rec: 05/04/21 13:53 SP [id number]) OP-PT Subjective Patient Comments Patient Comments Pt stated didn't remember a written hand out of HEP suggested in plan last tx. Pt reported R shld stiff found woke up this am hurting, pillow under arm didn't stay in place. R elbow still pain end feel extension and full flexion only last about 1 min. PT-OP-F Manual Assessment Start: 10/06/20 07:42 Freq: Status: Active Protocol: Document 10/06/20 09:00 AMB (Rec: 10/07/20 08:58 AMB [email or web address]) Manual Assessments Other Manual Assessments Other Manual Assessments Tenderness at acromion, attachment of long head of biceps, and throughout scapular muscles and upper traps. PT-OP-J Posture/Palpation/Skin Start: 10/06/20 07:42 Freq: Status: Active Protocol: Document 10/06/20 09:00 AMB (Rec: 10/07/20 08:58 AMB [id number]) Posture Evaluation Comments Posture Comments Flat lumbar and thoracic spine PT-OP-K Range of Motion Start: 10/06/20 07:42 Freq: Status: Active Protocol: Document 04/30/21 08:32 AMB (Rec: 04/30/21 08:38 AMB [id number]) Shoulder Goniometric Range of Motion Shoulder Right Active Flexion 165 Abduction 165 Horizontal Adduction 15 Internal Rotation Behind Back (text) L1 Comments C7 behind neck PT-OP-L Special Tests Start: 10/06/20 07:42 Freq: Status: Active Protocol: Document 02/09/21 16:06 AMB (Rec: 02/09/21 16:06 AMB [email or web address]) Special Tests Shoulder Special Tests Neer Impingement Comments not performed due to precautions [place] Impingement Comments not performed due to precautions PT-OP-M Strength Start: 10/06/20 07:42 Freq: Status: Active Protocol: Document 04/30/21 08:28 AMB (Rec: 04/30/21 08:32 AMB [id number]) Shoulder Strength Shoulder Manual Muscle Testing Right Flexion 4+ Good+ Abduction (C5) 4- Good- External Rotation 4- Good- Internal Rotation 4+ Good+ PT-OP-Q Treatments Start: 10/06/20 07:42 Freq: Status: Active Protocol: Document 05/04/21 13:05 SP (Rec: 05/04/21 13:53 SP [id number]) Therapeutic Exercises Prone Exercises 1 Prone Exercise Name I,T, rows x10 each, Ys 2 reps tingle 5th MTP so stopped Resistance AROM Reps/Minutes 10 reps ea, Comments cued scap retract/rhomboid assist Sidelying Exercises ER Sidelying Exercise Name reports tiring Side right Resistance 2# DB Reps/Minutes x10, x7, x Comments cued rhomboid facilitation- improved no pain eccentric return, elbow at hip Standing Exercises posterior capsule stretch/ HADD Standing Exercise Name reviewed HEP (good gentle posterior R shld stretch) Side right Reps/Minutes x2 , 10 sec hold Comments cued trunk alignment, gentle ROM- not over pressure, painfree R shld IR Side right Resistance #1 t band Equipment Used towel under arm Reps/Minutes 2x10 Comments good alignment R elbow ext isometric Standing Exercise Name tricep ext Side right Resistance TB #1 Reps/Minutes 2x10 Comments cued scap stab, humeral depression with eccentric slow return- painfree FF, ABD Standing Exercise Name FF, scaption Side right Resistance #1 TB 1st set, #1 DB 2nd set Equipment Used mirror for self corrections Reps/Minutes x10 each direction Comments 70-90 deg FF/ scaption 1 Standing Exercise Name t band ER Resistance #1 t band Equipment Used towel roll under arm Reps/Minutes 2x10 Comments painfree Other Exercises 1 Other Exercise Name lifting: floor> 8 step to shoulder height Resistance 5#, 10# Reps/Minutes x8, x5 reps Comments close to body= LBP stiffness 4 /10 Manual Therapy Treatment Soft Tissue Mobilization R elbow Body Location CET, bicep, tricep Mobilization Type Cross-Friction,Strumming, Sustained Pressure Intensity/Depth Moderate Body Position Hooklying Comments good feedback response, instructed MWM sustained pressure wrist pron/ sup, stretching bicep post, pin stretch bicep/ tricep with ext . Shoulder Body Location R lat, serratus anterior Mobilization Type Strumming,Sustained Pressure Intensity/Depth Moderate Body Position Hooklying Comments manual Joint Mobilizations humerounlar jt Joint R Direction inferior, posterior Grade II Body Position Hooklying Reps/Duration 1 min Comments improved GH posterior and inferior glide, painfree. PT-OP-R Modalities Start: 10/06/20 07:42 Freq: Status: Active Protocol: Document 03/16/21 15:00 ER (Rec: 03/16/21 15:58 ER [id number]) Hot Pack/Cold Pack Treatment cryocuff Patient Position Sitting Patient Tolerance Good Comments Good feedback response. PT-OP-T Assessment and Plan Start: 10/06/20 07:42 Freq: Status: Active Protocol: Document 05/04/21 13:05 SP (Rec: 05/04/21 13:53 SP [id number]) Physical Therapy Assessment Goals Three Impairment Pain Short Term Goal (STG) Flynn will improve his shoulder strength and ROM so that he can wash his back without shoulder pain. 05/01: Progress made: IR ROM improving, not yet equal to other side, but significantly improved. STG Duration 6 weeks Half-Way Goal (LTG) Flynn will lift his arm over head without pain so that he can return to work without shoulder pain. NOT MET YET LTG Duration 12 weeks Two Impairment Strength Short Term Goal (STG) Flynn will improve his R shoulder strength to 4/5 in all planes. 05/01 Progress made: weakness in external rotation and abduction remain. STG Duration 6 weeks Half-Way Goal (LTG) Flynn will lift 10# to shoulder height without an increase in shoulder pain. : if he keeps the weight close to his body, but if the weight is slightly away from his torso he cannot do this yet. LTG Duration 12 weeks One Impairment ROM Short Term Goal (STG) Flynn will improve his shoulder flexion (active) to 160 degrees. STG Duration MET Assessment Summary Assessment Pt reported elbow felt little better, not as stiff end feel but still not full range. Pt good muscle tiring during HEP strengthening TB review. Pt reports LB and hips stiffness during lifting DB off floor, able hip hinge better as reps progressed. Modified range off 8 step for improve hip hinge form, decrease spinal flex and better R scap retract stabilization and painfree in R UE. Physical Therapy Plan Frequency and Duration Frequency of Treatment 2x/Week Duration of Treatment 8 weeks Plan of Care Start Date 04/30/20 Plan of Care End Date 06/25/21 Therapeutic Interventions Therapeutic Interventions Aquatic Therapy,Home Exercise Program,Joint Mobilizations, Manual Therapy,Neuromuscular Re-education,Self-Care/Home Management,Therapeutic Activities,Therapeutic Exercises Modalities Cold Pack/Ice Massage,Electric Stimulation,Hot Packs Next Visit Focus/Plan Next Note Type Treatment Note Next Visit Plan Review written HEP-provide new handouts if needed for pt to prioritize new exercises, correct number of reps/sets
--- NOTE | 2021-05-08 14:30 | PT.OTN ---
Current Diagnoses Impingement syndrome of right shoulder (05/08/21) Strain of muscle(s) and tendon(s) of the rotator cuff of right shoulder, subsequent encounter (05/08/21) Physical Therapy Treatment Note PT-OP-A Visit Information Start: 10/06/20 07:42 Freq: Status: Active Protocol: Document 05/08/21 13:51 SP (Rec: 05/08/21 14:33 SP [id number]) Out-Patient Physical Therapy Visit Information Visit Information Visit Type Treatment Note Visit Start Time 13:51 Visit Stop Time 14:30 Total Visit Minutes 39 Visit Number 39 Number of INDUSTRIAL EQUIPMENT [employer]ER Visits 2 Precautions Precautions See protocol biceps tenodesis, labral repair and clavicle excisio non 01/22. note protocol states to wear sling for 4 weeks and allows elbow ROM but pt notes that he was told by surgeon to wear sling for 6 weeks and not to actively use elbow as he had more surgery that what was expected. 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 Had a MRI at [facility], Per pt report showed bicep tendon tear and labrum tear per pt report. Considering surgery. Does have ankylosing spondylitis. Not currently working because has a 10# lifting restriction and they don' t have work that can accomodate that. R shoulder stiffness currently. Difficulty sleeping. 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 Treatment Goals Patient/Caregiver Goals Reduce R shoulder pain returnt to work. Prior Functional Status Baseline Function- ADL's Independent Baseline Function- Mobility Independent Current Functional Impairments (Reported) Functional Limitations- ADL's Difficult lifting arm, lifting objects even of light weight (groceries) Personal Factors Other Personal Factors That May Effect Ankylosing spondylitis Therapy/Recovery PT-OP-C Subjective Start: 10/06/20 07:42 Freq: Status: Active Protocol: Document 05/08/21 13:51 SP (Rec: 05/08/21 14:33 SP [id number]) OP-PT Subjective Patient Comments Patient Comments Pt reported was layign down before came and reached over head and felt pop but didn't really hurt. He states R elbow still hurting. Pt stated after last tx, dropped bowl when reached out front to grab and lift, pain elbow had to release bowl. PT-OP-F Manual Assessment Start: 10/06/20 07:42 Freq: Status: Active Protocol: Document 10/06/20 09:00 AMB (Rec: 10/07/20 08:58 AMB [email or web address]) Manual Assessments Other Manual Assessments Other Manual Assessments Tenderness at acromion, attachment of long head of biceps, and throughout scapular muscles and upper traps. PT-OP-J Posture/Palpation/Skin Start: 10/06/20 07:42 Freq: Status: Active Protocol: Document 10/06/20 09:00 AMB (Rec: 10/07/20 08:58 AMB [email or web address]) Posture Evaluation Comments Posture Comments Flat lumbar and thoracic spine PT-OP-K Range of Motion Start: 10/06/20 07:42 Freq: Status: Active Protocol: Document 04/30/21 08:32 AMB (Rec: 04/30/21 08:38 AMB [id number]) Shoulder Goniometric Range of Motion Shoulder Right Active Flexion 165 Abduction 165 Horizontal Adduction 15 Internal Rotation Behind Back (text) L1 Comments C7 behind neck PT-OP-L Special Tests Start: 10/06/20 07:42 Freq: Status: Active Protocol: Document 02/09/21 16:06 AMB (Rec: 02/09/21 16:06 AMB [email or web address]) Special Tests Shoulder Special Tests Neer Impingement Comments not performed due to precautions [place] Impingement Comments not performed due to precautions PT-OP-M Strength Start: 10/06/20 07:42 Freq: Status: Active Protocol: Document 04/30/21 08:28 AMB (Rec: 04/30/21 08:32 AMB [id number]) Shoulder Strength Shoulder Manual Muscle Testing Right Flexion 4+ Good+ Abduction (C5) 4- Good- External Rotation 4- Good- Internal Rotation 4+ Good+ PT-OP-Q Treatments Start: 10/06/20 07:42 Freq: Status: Active Protocol: Document 05/08/21 13:51 SP (Rec: 05/08/21 14:33 SP [id number]) Therapeutic Exercises Prone Exercises 1 Prone Exercise Name I,T, rows x10 each- discussed doing at home HEP (not performed today) Resistance AROM Reps/Minutes 10 reps ea, Comments cued scap retract/rhomboid assist Sidelying Exercises HABD/ open book Sidelying Exercise Name HEP- discussed but didn;t perform today Side right Resistance #1DB Reps/Minutes 10 Comments painfree range Sitting Exercises pulleys Sitting Exercise Name FF, scaption Side right Resistance AAROM Equipment Used cued no [place] recruit Reps/Minutes x10 ea, Comments FF 151*, Scaption w/ elbow bent 152* Standing Exercises R shld IR Standing Exercise Name HEP Side right Resistance #1 t band Equipment Used towel under arm Reps/Minutes 2x10 Comments good alignment, self corrections relax neck, no UT recruit Wall Walking into flexion Standing Exercise Name HEP Side right Resistance AAROM Equipment Used at corner wall/doorway Reps/Minutes 3 reps each -pause at breath when compenating Comments able to do at doorway and able to wt shift forward FF, ABD Standing Exercise Name FF, scaption- recheck next tx Side right Resistance #1 TB 1st set, #1 DB 2nd set Equipment Used mirror for self corrections Reps/Minutes x10 each direction Comments 70-90 deg FF/ scaption Median and ulnar nerve glide Side right Reps/Minutes 3 reps x2 Comments repetitions, bothered R shld, stopped punch OH flexion & ABD Side right Resistance AROM Equipment Used mirror for improved self corrections Reps/Minutes FF 5 reps, ABD x2 Comments cued level shlds, reduce UT recruitment- 4/10 irritation over anterior ACjt 1 Standing Exercise Name t band ER- HEP Resistance #1 t band Equipment Used towel roll under arm Reps/Minutes 2x10 Comments painfree Other Exercises 1 Other Exercise Name lifting: floor> 8 step to hip height Resistance 10# Reps/Minutes 2x5 reps Comments close to body= LBP stiffness not as much as last time 1/2 knee eccentric R shld flexion, ABD Other Exercise Name added to HEP Side right Resistance TB #1 Equipment Used oval pad under R knee Reps/Minutes x10 Comments cued postural alignment, slow eccentric control: 1328 ABD, 145*FF- painfree Manual Therapy Treatment Soft Tissue Mobilization R elbow Body Location CET, CFT, bicep, tricep Mobilization Type Cross-Friction,Strumming, Sustained Pressure Intensity/Depth Moderate Body Position Hooklying Comments good feedback response, stretching bicep post, pin stretch bicep/ tricep with ext . Joint Mobilizations humerounlar jt Joint R Direction med, lateral glide Grade II Body Position seated Comments painfree PT-OP-R Modalities Start: 10/06/20 07:42 Freq: Status: Active Protocol: Document 03/16/21 15:00 ER (Rec: 03/16/21 15:58 ER [id number]) Hot Pack/Cold Pack Treatment cryocuff Patient Position Sitting Patient Tolerance Good Comments Good feedback response. PT-OP-T Assessment and Plan Start: 10/06/20 07:42 Freq: Status: Active Protocol: Document 05/08/21 13:51 SP (Rec: 05/08/21 14:33 SP [id number]) Physical Therapy Assessment Goals Three Impairment Pain Short Term Goal (STG) Flynn will improve his shoulder strength and ROM so that he can wash his back without shoulder pain. 05/01: Progress made: IR ROM improving, not yet equal to other side, but significantly improved. STG Duration 6 weeks [employer] Wafer Goal (LTG) Flynn will lift his arm over head without pain so that he can return to work without shoulder pain. NOT MET YET LTG Duration 12 weeks Two Impairment Strength Short Term Goal (STG) Flynn will improve his R shoulder strength to 4/5 in all planes. 05/01 Progress made: weakness in external rotation and abduction remain. STG Duration 6 weeks Senior Living Goal (LTG) Flynn will lift 10# to shoulder height without an increase in shoulder pain. : if he keeps the weight close to his body, but if the weight is slightly away from his torso he cannot do this yet. LTG Duration 12 weeks One Impairment ROM Short Term Goal (STG) Flynn will improve his shoulder flexion (active) to 160 degrees. STG Duration MET Assessment Summary Assessment Pt improve in scap stabilization, decrease cuing during TB HEP. HEP: Initiated 1/2 kneel eccentric FF/ ABD with good control/ shld alignment feedback and good self corrections. HEP reviewed , see HO performing at home. Continues to have elbow pain into extension end feel, little better after manual and bicep stretch. Physical Therapy Plan Frequency and Duration Frequency of Treatment 2x/Week Duration of Treatment 8 weeks Plan of Care Start Date 04/30/20 Plan of Care End Date 06/25/21 Therapeutic Interventions Therapeutic Interventions Aquatic Therapy,Home Exercise Program,Joint Mobilizations, Manual Therapy,Neuromuscular Re-education,Self-Care/Home Management,Therapeutic Activities,Therapeutic Exercises Modalities Cold Pack/Ice Massage,Electric Stimulation,Hot Packs Next Visit Focus/Plan Next Note Type Treatment Note Next Visit Plan SEE PRANAY HEP. recheck eccentric ff/ abd 1/2 kneel.
--- NOTE | 2021-05-11 16:05 | PT.OTN ---
Current Diagnoses Impingement syndrome of right shoulder (05/11/21) Strain of muscle(s) and tendon(s) of the rotator cuff of right shoulder, subsequent encounter (05/11/21) Physical Therapy Treatment Note PT-OP-A Visit Information Start: 10/06/20 07:42 Freq: Status: Active Protocol: Document 05/11/21 13:51 AMB (Rec: 05/11/21 14:31 AMB [id number]) Out-Patient Physical Therapy Visit Information Visit Information Visit Type Treatment Note Visit Start Time 13:50 Visit Stop Time 14:30 Total Visit Minutes 39 Visit Number 40 PT-OP-B Current Condition Start: 10/06/20 07:42 Freq: Status: Active Protocol: Document 10/06/20 09:00 AMB (Rec: 10/06/20 09:15 AMB [id number]) Current Condition History of Current Condition Onset Date 08/15/20 Current Complaints R shoulder pain History of Current Condition 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 Had a MRI at [facility], Per pt report showed bicep tendon tear and labrum tear per pt report. Considering surgery. Does have ankylosing spondylitis. Not currently working because has a 10# lifting restriction and they don' t have work that can accomodate that. R shoulder stiffness currently. Difficulty sleeping. 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 Treatment Goals Patient/Caregiver Goals Reduce R shoulder pain returnt to work. Prior Functional Status Baseline Function- ADL's Independent Baseline Function- Mobility Independent Current Functional Impairments (Reported) Functional Limitations- ADL's Difficult lifting arm, lifting objects even of light weight (groceries) Personal Factors Other Personal Factors That May Effect Ankylosing spondylitis Therapy/Recovery PT-OP-C Subjective Start: 10/06/20 07:42 Freq: Status: Active Protocol: Document 05/11/21 13:51 AMB (Rec: 05/11/21 14:31 AMB [id number]) OP-PT Subjective Patient Comments Patient Comments Pt continues to note stiffness in elbow especially when trying to extend elbow after having it flexed for a short period of time. PT-OP-F Manual Assessment Start: 10/06/20 07:42 Freq: Status: Active Protocol: Document 10/06/20 09:00 AMB (Rec: 10/07/20 08:58 AMB [email or web address]) Manual Assessments Other Manual Assessments Other Manual Assessments Tenderness at acromion, attachment of long head of biceps, and throughout scapular muscles and upper traps. PT-OP-J Posture/Palpation/Skin Start: 10/06/20 07:42 Freq: Status: Active Protocol: Document 10/06/20 09:00 AMB (Rec: 10/07/20 08:58 AMB [email or web address]) Posture Evaluation Comments Posture Comments Flat lumbar and thoracic spine PT-OP-K Range of Motion Start: 10/06/20 07:42 Freq: Status: Active Protocol: Document 04/30/21 08:32 AMB (Rec: 04/30/21 08:38 AMB [id number]) Shoulder Goniometric Range of Motion Shoulder Right Active Flexion 165 Abduction 165 Horizontal Adduction 15 Internal Rotation Behind Back (text) L1 Comments C7 behind neck PT-OP-L Special Tests Start: 10/06/20 07:42 Freq: Status: Active Protocol: Document 02/09/21 16:06 AMB (Rec: 02/09/21 16:06 AMB [email or web address]) Special Tests Shoulder Special Tests Neer Impingement Comments not performed due to precautions [place] Impingement Comments not performed due to precautions PT-OP-M Strength Start: 10/06/20 07:42 Freq: Status: Active Protocol: Document 04/30/21 08:28 AMB (Rec: 04/30/21 08:32 AMB [id number]) Shoulder Strength Shoulder Manual Muscle Testing Right Flexion 4+ Good+ Abduction (C5) 4- Good- External Rotation 4- Good- Internal Rotation 4+ Good+ PT-OP-Q Treatments Start: 10/06/20 07:42 Freq: Status: Active Protocol: Document 05/11/21 13:45 AMB (Rec: 05/11/21 16:04 AMB [id number]) Therapeutic Exercises Sitting Exercises biceps curls Sitting Exercise Name 3 way biceps Resistance 5# Reps/Minutes 10 ea Comments sup, neutral, pronation Standing Exercises FF, ABD Standing Exercise Name FF, scaption- Side right Resistance #1 TB 1st set, #1 DB 2nd set Equipment Used mirror for self corrections Reps/Minutes x10 each direction Comments 70-90 deg FF/ scaption 9 Standing Exercise Name t band biceps curls. Resistance #1 t band Reps/Minutes 2x10 Other Exercises 1/2 knee eccentric R shld flexion, ABD Other Exercise Name reviewed HEP Side right Resistance TB #1 Equipment Used oval pad under R knee Reps/Minutes x10 Comments cued postural alignment, slow eccentric control Manual Therapy Treatment Joint Mobilizations humerounlar jt Joint R Direction med, lateral glide Grade II Body Position seated Comments painfree 1 Joint GH joint Direction AP Grade III Comments Into shoulder flexion PT-OP-R Modalities Start: 10/06/20 07:42 Freq: Status: Active Protocol: Document 03/16/21 15:00 ER (Rec: 03/16/21 15:58 ER [id number]) Hot Pack/Cold Pack Treatment cryocuff Patient Position Sitting Patient Tolerance Good Comments Good feedback response. PT-OP-T Assessment and Plan Start: 10/06/20 07:42 Freq: Status: Active Protocol: Document 05/11/21 13:45 AMB (Rec: 05/11/21 16:04 AMB [id number]) Physical Therapy Assessment Goals Three Impairment Pain Short Term Goal (STG) Flynn will improve his shoulder strength and ROM so that he can wash his back without shoulder pain. 05/01: Progress made: IR ROM improving, not yet equal to other side, but significantly improved. STG Duration 6 weeks Care Home Goal (LTG) Flynn will lift his arm over head without pain so that he can return to work without shoulder pain. NOT MET YET LTG Duration 12 weeks Two Impairment Strength Short Term Goal (STG) Flynn will improve his R shoulder strength to 4/5 in all planes. 05/01 Progress made: weakness in external rotation and abduction remain. STG Duration 6 weeks Bleach [employer]er Goal (LTG) Flynn will lift 10# to shoulder height without an increase in shoulder pain. : if he keeps the weight close to his body, but if the weight is slightly away from his torso he cannot do this yet. LTG Duration 12 weeks One Impairment ROM Short Term Goal (STG) Flynn will improve his shoulder flexion (active) to 160 degrees. STG Duration MET Assessment Summary Assessment Continued to encourage returning to strengthening as tolerated. Encouraged consistent movement to avoid elbow stiffness. Can have some discomfort in ant shoulder with overhead movement. Physical Therapy Plan Next Visit Focus/Plan Next Note Type Treatment Note Next Visit Plan would pt be interested in adding aquatic to POC for more strengthening? Pt doing well with half kneel. Recheck t band bicep curls and elbow stiffness.
--- NOTE | 2021-05-14 14:30 | PT.OTN ---
Current Diagnoses Impingement syndrome of right shoulder (05/14/21) Strain of muscle(s) and tendon(s) of the rotator cuff of right shoulder, subsequent encounter (05/14/21) Physical Therapy Treatment Note PT-OP-A Visit Information Start: 10/06/20 07:42 Freq: Status: Active Protocol: Document 05/14/21 14:00 SP (Rec: 05/14/21 15:04 SP [id number]) Out-Patient Physical Therapy Visit Information Visit Information Visit Type Treatment Note Visit Note pt 15 min late for appt Visit Start Time 14:00 Visit Stop Time 14:30 Total Visit Minutes 30 Visit Number 41 Number of ACTUARIAL TECHNICIAN Visits 1 Evaluation Information Evaluation Date 02/09/21 Precautions Precautions 05/14/21: spoke PA today: lifting allowed 2lb as much as wants, 5lb every so often but no > 10lb. Given at eval: See protocol biceps tenodesis, labral repair and clavicle excision on 01/22. note protocol states to wear sling for 4 weeks and allows elbow ROM but pt notes that he was told by surgeon to wear sling for 6 weeks and not to actively use elbow as he had more surgery that what was expected. 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 Had a MRI at [facility], Per pt report showed bicep tendon tear and labrum tear per pt report. Considering surgery. Does have ankylosing spondylitis. Not currently working because has a 10# lifting restriction and they don' t have work that can accomodate that. R shoulder stiffness currently. Difficulty sleeping. 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 Treatment Goals Patient/Caregiver Goals Reduce R shoulder pain returnt to work. Prior Functional Status Baseline Function- ADL's Independent Baseline Function- Mobility Independent Current Functional Impairments (Reported) Functional Limitations- ADL's Difficult lifting arm, lifting objects even of light weight (groceries) Personal Factors Other Personal Factors That May Effect Ankylosing spondylitis Therapy/Recovery PT-OP-C Subjective Start: 10/06/20 07:42 Freq: Status: Active Protocol: Document 05/14/21 14:00 SP (Rec: 05/14/21 15:04 SP [id number]) OP-PT Subjective Patient Comments Patient Comments Pt reported elbow not as sore, lately just feels it when picks up something and lifts out front w/ arm away from body. No problems with lifting waterbottle like bicep curl closer to body. R shld had some pain during open book ecentric adduction and ABD at home return position had to stop, but able to do ER. PT-OP-F Manual Assessment Start: 10/06/20 07:42 Freq: Status: Active Protocol: Document 10/06/20 09:00 AMB (Rec: 10/07/20 08:58 AMB [email or web address]) Manual Assessments Other Manual Assessments Other Manual Assessments Tenderness at acromion, attachment of long head of biceps, and throughout scapular muscles and upper traps. PT-OP-J Posture/Palpation/Skin Start: 10/06/20 07:42 Freq: Status: Active Protocol: Document 10/06/20 09:00 AMB (Rec: 10/07/20 08:58 AMB [email or web address]) Posture Evaluation Comments Posture Comments Flat lumbar and thoracic spine PT-OP-K Range of Motion Start: 10/06/20 07:42 Freq: Status: Active Protocol: Document 04/30/21 08:32 AMB (Rec: 04/30/21 08:38 AMB [id number]) Shoulder Goniometric Range of Motion Shoulder Right Active Flexion 165 Abduction 165 Horizontal Adduction 15 Internal Rotation Behind Back (text) L1 Comments C7 behind neck PT-OP-L Special Tests Start: 10/06/20 07:42 Freq: Status: Active Protocol: Document 02/09/21 16:06 AMB (Rec: 02/09/21 16:06 AMB [email or web address]) Special Tests Shoulder Special Tests Neer Impingement Comments not performed due to precautions [place] Impingement Comments not performed due to precautions PT-OP-M Strength Start: 10/06/20 07:42 Freq: Status: Active Protocol: Document 04/30/21 08:28 AMB (Rec: 04/30/21 08:32 AMB [id number]) Shoulder Strength Shoulder Manual Muscle Testing Right Flexion 4+ Good+ Abduction (C5) 4- Good- External Rotation 4- Good- Internal Rotation 4+ Good+ PT-OP-Q Treatments Start: 10/06/20 07:42 Freq: Status: Active Protocol: Document 05/14/21 14:00 SP (Rec: 05/14/21 15:04 SP [id number]) Therapeutic Exercises Sitting Exercises biceps curls Sitting Exercise Name 2 way biceps (supination/ pronation) Resistance 5# DB Equipment Used mirror for self feedback alignment Reps/Minutes 2x10 ea position Comments cued trunk/level shld, painfree, fatigued pulleys Sitting Exercise Name FF, scaption Side right Resistance AAROM Equipment Used cued no UT recruit Reps/Minutes x20 ea Comments FF 155*, Scaption w/ elbow bent 154* Standing Exercises posterior capsule stretch/ HADD Standing Exercise Name reviewed HEP (good gentle posterior R shld stretch) Side right Reps/Minutes x2 , 10 sec hold Comments cued trunk alignment, gentle ROM- not over pressure, painfree R shld IR Standing Exercise Name HEP Side right Resistance #2 t band Equipment Used towel under arm Reps/Minutes 2x10 Comments good alignment, self corrections relax neck, no UT recruit FF, ABD Standing Exercise Name FF, scaption- Side right Resistance FF:#1 DB x8, #2 DB x8; scaption: #2 DB x10 Equipment Used mirror for self corrections Comments good fatigue, little twinge last rep FF, fatguing otherwise 9 Standing Exercise Name t band biceps curls. Resistance #1 t band Equipment Used in mirror Reps/Minutes x8, x5 reps Comments cued scap retraction, 1 Standing Exercise Name t band ER- HEP Resistance #1 t band Equipment Used towel roll under arm Reps/Minutes 2x10 Comments painfree Other Exercises 1/2 knee eccentric R shld flexion, ABD Other Exercise Name FF, ABD: reviewed HEP Side right Resistance TB #1 Equipment Used oval pad under R knee Reps/Minutes x10 Comments improved eccentric control PT-OP-R Modalities Start: 10/06/20 07:42 Freq: Status: Active Protocol: Document 03/16/21 15:00 ER (Rec: 03/16/21 15:58 ER [id number]) Hot Pack/Cold Pack Treatment cryocuff Patient Position Sitting Patient Tolerance Good Comments Good feedback response. PT-OP-T Assessment and Plan Start: 10/06/20 07:42 Freq: Status: Active Protocol: Document 05/14/21 14:00 SP (Rec: 05/14/21 15:04 SP [id number]) Physical Therapy Assessment Goals Three Impairment Pain Short Term Goal (STG) Flynn will improve his shoulder strength and ROM so that he can wash his back without shoulder pain. 05/01: Progress made: IR ROM improving, not yet equal to other side, but significantly improved. STG Duration 6 weeks Lapel Baster Goal (LTG) Flynn will lift his arm over head without pain so that he can return to work without shoulder pain. NOT MET YET LTG Duration 12 weeks Two Impairment Strength Short Term Goal (STG) Flynn will improve his R shoulder strength to 4/5 in all planes. 05/01 Progress made: weakness in external rotation and abduction remain. STG Duration 6 weeks Lapel Baster Goal (LTG) Flynn will lift 10# to shoulder height without an increase in shoulder pain. : if he keeps the weight close to his body, but if the weight is slightly away from his torso he cannot do this yet. LTG Duration 12 weeks One Impairment ROM Short Term Goal (STG) Flynn will improve his shoulder flexion (active) to 160 degrees. STG Duration MET Assessment Summary Assessment Pt improved in low level TB and DB strengthening FF and scaption fatigue feeling responses, min cues for scap and trunk alignment. Pt reported LB more irritated today and limited reps at times, even with TA cues. Encouraged ROM overhead and awareness of trunk/ scap complex alignment for stability and not recruit anterior shld causing discomfort, verbalized understanding. ACTUARIAL TECHNICIAN spoke with PA at [facility] reports: allowed 2# as much as we Physical Therapy Plan Frequency and Duration Frequency of Treatment 2x/Week Duration of Treatment 8 weeks Plan of Care Start Date 04/30/20 Plan of Care End Date 06/25/21 Therapeutic Interventions Therapeutic Interventions Aquatic Therapy,Home Exercise Program,Joint Mobilizations, Manual Therapy,Neuromuscular Re-education,Self-Care/Home Management,Therapeutic Activities,Therapeutic Exercises Modalities Cold Pack/Ice Massage,Electric Stimulation,Hot Packs Other Referrals/Consults Referrals/Consults Recommended Suggested aquatic therapy 1x/ wk, couple openings over the next month, has another appt and the other doesn't have childcare. Next Visit Focus/Plan Next Note Type Treatment Note Next Visit Plan Next visit: continue FF, scaption, abd DB, supine/ side scap strengthening. POC: Strengthening tolerance progression >= 10#. Recheck t band bicep curls and elbow stiffness. Progress OH and lifting activities tolerance.
--- NOTE | 2021-05-18 15:38 | PT.OTN ---
Current Diagnoses Impingement syndrome of right shoulder (05/18/21) Strain of muscle(s) and tendon(s) of the rotator cuff of right shoulder, subsequent encounter (05/18/21) Physical Therapy Treatment Note PT-OP-A Visit Information Start: 10/06/20 07:42 Freq: Status: Active Protocol: Document 05/18/21 13:00 AMB (Rec: 05/18/21 13:45 AMB [id number]) Out-Patient Physical Therapy Visit Information Visit Information Visit Type Treatment Note Visit Start Time 13:04 Visit Stop Time 13:45 Total Visit Minutes 40 Visit Number 42 PT-OP-B Current Condition Start: 10/06/20 07:42 Freq: Status: Active Protocol: Document 10/06/20 09:00 AMB (Rec: 10/06/20 09:15 AMB [id number]) Current Condition History of Current Condition Onset Date 08/15/20 Current Complaints R shoulder pain History of Current Condition 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 Had a MRI at [facility], Per pt report showed bicep tendon tear and labrum tear per pt report. Considering surgery. Does have ankylosing spondylitis. Not currently working because has a 10# lifting restriction and they don' t have work that can accomodate that. R shoulder stiffness currently. Difficulty sleeping. 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 Treatment Goals Patient/Caregiver Goals Reduce R shoulder pain returnt to work. Prior Functional Status Baseline Function- ADL's Independent Baseline Function- Mobility Independent Current Functional Impairments (Reported) Functional Limitations- ADL's Difficult lifting arm, lifting objects even of light weight (groceries) Personal Factors Other Personal Factors That May Effect Ankylosing spondylitis Therapy/Recovery PT-OP-C Subjective Start: 10/06/20 07:42 Freq: Status: Active Protocol: Document 05/18/21 13:00 AMB (Rec: 05/18/21 15:37 AMB [id number]) OP-PT Subjective Patient Comments Patient Comments Pt fell asleep on couch wrong and woke up with pain in the shoulder. Reports band exercises are going well and not painful. Does find open book a bit uncomfortable. PT-OP-F Manual Assessment Start: 10/06/20 07:42 Freq: Status: Active Protocol: Document 10/06/20 09:00 AMB (Rec: 10/07/20 08:58 AMB [email or web address]) Manual Assessments Other Manual Assessments Other Manual Assessments Tenderness at acromion, attachment of long head of biceps, and throughout scapular muscles and upper traps. PT-OP-J Posture/Palpation/Skin Start: 10/06/20 07:42 Freq: Status: Active Protocol: Document 10/06/20 09:00 AMB (Rec: 10/07/20 08:58 AMB [email or web address]) Posture Evaluation Comments Posture Comments Flat lumbar and thoracic spine PT-OP-K Range of Motion Start: 10/06/20 07:42 Freq: Status: Active Protocol: Document 04/30/21 08:32 AMB (Rec: 04/30/21 08:38 AMB [id number]) Shoulder Goniometric Range of Motion Shoulder Right Active Flexion 165 Abduction 165 Horizontal Adduction 15 Internal Rotation Behind Back (text) L1 Comments C7 behind neck PT-OP-L Special Tests Start: 10/06/20 07:42 Freq: Status: Active Protocol: Document 02/09/21 16:06 AMB (Rec: 02/09/21 16:06 AMB [email or web address]) Special Tests Shoulder Special Tests Neer Impingement Comments not performed due to precautions [place] Impingement Comments not performed due to precautions PT-OP-M Strength Start: 10/06/20 07:42 Freq: Status: Active Protocol: Document 04/30/21 08:28 AMB (Rec: 04/30/21 08:32 AMB [id number]) Shoulder Strength Shoulder Manual Muscle Testing Right Flexion 4+ Good+ Abduction (C5) 4- Good- External Rotation 4- Good- Internal Rotation 4+ Good+ PT-OP-Q Treatments Start: 10/06/20 07:42 Freq: Status: Active Protocol: Document 05/18/21 13:00 AMB (Rec: 05/18/21 15:37 AMB [id number]) Therapeutic Exercises Standing Exercises Wall Walking into flexion Standing Exercise Name HEP Side right Reps/Minutes 5 Comments added lift off- full ROM FF, ABD Standing Exercise Name FF, scaption- Side right Resistance FF:#1 DB x8, #2 DB x8; scaption: #2 DB x10 Equipment Used mirror for self corrections Comments good fatigue, little twinge last rep FF, fatguing otherwise 9 Standing Exercise Name t band biceps curls. Resistance #1 t band Equipment Used in mirror Reps/Minutes x8, x8 reps Comments cued scap retraction, Other Exercises quadruped Other Exercise Name R flexion and horizontal abduction Reps/Minutes 10 ea Comments full range Manual Therapy Treatment Manual Techniques 1 Body Position Sidelying Comments flexion and abduction PROM with scapula PT-OP-R Modalities Start: 10/06/20 07:42 Freq: Status: Active Protocol: Document 03/16/21 15:00 ER (Rec: 03/16/21 15:58 ER [id number]) Hot Pack/Cold Pack Treatment cryocuff Patient Position Sitting Patient Tolerance Good Comments Good feedback response. PT-OP-T Assessment and Plan Start: 10/06/20 07:42 Freq: Status: Active Protocol: Document 05/18/21 13:00 AMB (Rec: 05/18/21 15:37 AMB [id number]) Physical Therapy Assessment Goals Three Impairment Pain Short Term Goal (STG) Flynn will improve his shoulder strength and ROM so that he can wash his back without shoulder pain. 05/01: Progress made: IR ROM improving, not yet equal to other side, but significantly improved. STG Duration 6 weeks [employer] Goal (LTG) Flynn will lift his arm over head without pain so that he can return to work without shoulder pain. NOT MET YET LTG Duration 12 weeks Two Impairment Strength Short Term Goal (STG) Flynn will improve his R shoulder strength to 4/5 in all planes. 05/01 Progress made: weakness in external rotation and abduction remain. STG Duration 6 weeks [employer] Goal (LTG) Flynn will lift 10# to shoulder height without an increase in shoulder pain. : if he keeps the weight close to his body, but if the weight is slightly away from his torso he cannot do this yet. LTG Duration 12 weeks One Impairment ROM Short Term Goal (STG) Flynn will improve his shoulder flexion (active) to 160 degrees. STG Duration MET Assessment Summary Assessment Pt continues to have pain with horizonal adduction, but otherwise ROM is coming along. Tolerated weightbearing in quadruped today without issue. Physical Therapy Plan Next Visit Focus/Plan Next Note Type Treatment Note Next Visit Plan Next visit: follow up on quadruped exercises, continue FF, scaption, abd DB, supine/ side scap strengthening. POC: Strengthening tolerance progression >= 10#. Progress OH and lifting activities tolerance.
--- NOTE | 2021-05-21 15:00 | PT.OTN ---
Current Diagnoses Impingement syndrome of right shoulder (05/21/21) Strain of muscle(s) and tendon(s) of the rotator cuff of right shoulder, subsequent encounter (05/21/21) Physical Therapy Treatment Note PT-OP-A Visit Information Start: 10/06/20 07:42 Freq: Status: Active Protocol: Document 05/21/21 14:16 SP (Rec: 05/21/21 15:11 SP [id number]) Out-Patient Physical Therapy Visit Information Visit Information Visit Type Treatment Note Visit Start Time 14:16 Visit Stop Time 15:00 Total Visit Minutes 44 Visit Number 43 Number of EQUITY ANALYST Visits 1 Evaluation Information Evaluation Date 02/09/21 Precautions Precautions 05/14/21: spoke PA today: lifting allowed 2lb as much as wants, 5lb every so often but no > 10lb. Given at eval: See protocol biceps tenodesis, labral repair and clavicle excision on 01/22. note protocol states to wear sling for 4 weeks and allows elbow ROM but pt notes that he was told by surgeon to wear sling for 6 weeks and not to actively use elbow as he had more surgery that what was expected. 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 Had a MRI at [facility], Per pt report showed bicep tendon tear and labrum tear per pt report. Considering surgery. Does have ankylosing spondylitis. Not currently working because has a 10# lifting restriction and they don' t have work that can accomodate that. R shoulder stiffness currently. Difficulty sleeping. 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 Treatment Goals Patient/Caregiver Goals Reduce R shoulder pain returnt to work. Prior Functional Status Baseline Function- ADL's Independent Baseline Function- Mobility Independent Current Functional Impairments (Reported) Functional Limitations- ADL's Difficult lifting arm, lifting objects even of light weight (groceries) Personal Factors Other Personal Factors That May Effect Ankylosing spondylitis Therapy/Recovery PT-OP-C Subjective Start: 10/06/20 07:42 Freq: Status: Active Protocol: Document 05/21/21 14:16 SP (Rec: 05/21/21 15:11 SP [id number]) OP-PT Subjective Patient Comments Patient Comments Pt states R shld doing all right today, has it's moments . PT-OP-F Manual Assessment Start: 10/06/20 07:42 Freq: Status: Active Protocol: Document 10/06/20 09:00 AMB (Rec: 10/07/20 08:58 AMB [id number]) Manual Assessments Other Manual Assessments Other Manual Assessments Tenderness at acromion, attachment of long head of biceps, and throughout scapular muscles and upper traps. PT-OP-J Posture/Palpation/Skin Start: 10/06/20 07:42 Freq: Status: Active Protocol: Document 10/06/20 09:00 AMB (Rec: 10/07/20 08:58 AMB [id number]) Posture Evaluation Comments Posture Comments Flat lumbar and thoracic spine PT-OP-K Range of Motion Start: 10/06/20 07:42 Freq: Status: Active Protocol: Document 04/30/21 08:32 AMB (Rec: 04/30/21 08:38 AMB [id number]) Shoulder Goniometric Range of Motion Shoulder Right Active Flexion 165 Abduction 165 Horizontal Adduction 15 Internal Rotation Behind Back (text) L1 Comments C7 behind neck PT-OP-L Special Tests Start: 10/06/20 07:42 Freq: Status: Active Protocol: Document 02/09/21 16:06 AMB (Rec: 02/09/21 16:06 AMB [id number]) Special Tests Shoulder Special Tests Neer Impingement Comments not performed due to precautions [place] Impingement Comments not performed due to precautions PT-OP-M Strength Start: 10/06/20 07:42 Freq: Status: Active Protocol: Document 04/30/21 08:28 AMB (Rec: 04/30/21 08:32 AMB [id number]) Shoulder Strength Shoulder Manual Muscle Testing Right Flexion 4+ Good+ Abduction (C5) 4- Good- External Rotation 4- Good- Internal Rotation 4+ Good+ PT-OP-Q Treatments Start: 10/06/20 07:42 Freq: Status: Active Protocol: Document 05/21/21 14:16 SP (Rec: 05/21/21 15:11 SP [id number]) Therapeutic Exercises Prone Exercises child's pose streth Reps/Minutes 30s elbow plank Prone Exercise Name assessed for PT only Equipment Used yoga mat Reps/Minutes 28s Comments cued PPT, little elbow twinge last 2 sec incline plank shld taps Prone Exercise Name assess PT only Side bilateral Equipment Used off table Reps/Minutes x10 alternate BUE Comments cued neutral spine/ TA- painfree Sidelying Exercises ER Sidelying Exercise Name reports tiring Side right Resistance 2#> #3 DB Reps/Minutes x10 each wt Comments good form 3 Sidelying Exercise Name abduction Resistance #1> 2# Reps/Minutes 2x10, 5 reps Comments 142 deg Standing Exercises tricep stretch Standing Exercise Name slide elbow up Side bilateral Equipment Used at wall corner Reps/Minutes 30s x2 Comments good feedback stretch pec stretch Side bilateral Equipment Used at wall corner Reps/Minutes 30 sec x2 Comments good feedback stretch body blade Standing Exercise Name punch down, front, OH Side right Resistance yellow, smallest Reps/Minutes 1 min each direction Comments pain free, just tiring posterior capsule stretch/ HADD Standing Exercise Name reviewed HEP (good gentle posterior R shld stretch) Side right Reps/Minutes x2 , 10 sec hold Comments cued trunk alignment, gentle ROM- not over pressure, painfree R shld IR Standing Exercise Name IR/ER Side right Resistance 2# DB Equipment Used towel under arm, removed Reps/Minutes 1 min Comments just tiring, painfree Wall Walking into flexion Standing Exercise Name HEP review- added lift off wall Side right Reps/Minutes 5 Comments 160 deg FF, ABD Standing Exercise Name FF, scaption- Side right Resistance FF and scaption: #2 DB x10 Equipment Used mirror for self corrections Comments good fatigue punch OH flexion & ABD Standing Exercise Name Punch OH Side right Resistance #1 TB Equipment Used mirror for improved self corrections Reps/Minutes x10 Comments painfree Other Exercises Prone over Tball Ts, Ys Other Exercise Name assessed for PT only Side bilateral Resistance AROM Equipment Used 65 cm Tball, B feet against wall Reps/Minutes x5 reps each Comments cued feet apart, straight legs , glut fac, TA fac, AROM- painfree bridge over T ball Other Exercise Name supine: pec stretch, FF, Ts, 1 /2 X Side bilateral Resistance TB #1 Equipment Used 65 cm Tball Reps/Minutes 30s stretch, x10 each Comments painfree, cued slow throughout ROM quadruped Other Exercise Name R flexion and horizontal abduction Reps/Minutes 10 ea Comments full range 1 Other Exercise Name lifting from floor Resistance 2- 10# (1 each UE) Reps/Minutes x10 reps Comments painfree, cued scap retraction / depression at complete full stand upright 1/2 knee eccentric R shld flexion, ABD Other Exercise Name FF, ABD: reviewed HEP Side right Resistance TB #2 Equipment Used oval pad under R knee Reps/Minutes x10 Comments improved eccentric control PT-OP-R Modalities Start: 10/06/20 07:42 Freq: Status: Active Protocol: Document 03/16/21 15:00 ER (Rec: 03/16/21 15:58 ER [id number]) Hot Pack/Cold Pack Treatment cryocuff Patient Position Sitting Patient Tolerance Good Comments Good feedback response. PT-OP-T Assessment and Plan Start: 10/06/20 07:42 Freq: Status: Active Protocol: Document 05/21/21 14:16 SP (Rec: 05/21/21 15:11 SP [id number]) Physical Therapy Assessment Goals Three Impairment Pain Short Term Goal (STG) Flynn will improve his shoulder strength and ROM so that he can wash his back without shoulder pain. 05/01: Progress made: IR ROM improving, not yet equal to other side, but significantly improved. STG Duration 6 weeks Correction Goal (LTG) Flynn will lift his arm over head without pain so that he can return to work without shoulder pain. NOT MET YET LTG Duration 12 weeks Two Impairment Strength Short Term Goal (STG) Flynn will improve his R shoulder strength to 4/5 in all planes. 05/01 Progress made: weakness in external rotation and abduction remain. STG Duration 6 weeks Correction Goal (LTG) Flynn will lift 10# to shoulder height without an increase in shoulder pain. : if he keeps the weight close to his body, but if the weight is slightly away from his torso he cannot do this yet. LTG Duration 12 weeks One Impairment ROM Short Term Goal (STG) Flynn will improve his shoulder flexion (active) to 160 degrees. STG Duration MET Assessment Summary Assessment Pt performed good effort to ther ex today, stated no pain just muscle tiring. Able perform R shld 160 deg FF standing off wall, able to progress resisted OH movements with TB and utilize body blade 30s reps 3 directions for stabilization strengthening. Physical Therapy Plan Frequency and Duration Frequency of Treatment 2x/Week Duration of Treatment 8 weeks Plan of Care Start Date 04/30/20 Plan of Care End Date 06/25/21 Therapeutic Interventions Therapeutic Interventions Aquatic Therapy,Home Exercise Program,Joint Mobilizations, Manual Therapy,Neuromuscular Re-education,Self-Care/Home Management,Therapeutic Activities,Therapeutic Exercises Modalities Cold Pack/Ice Massage,Electric Stimulation,Hot Packs Other Referrals/Consults Referrals/Consults Recommended Suggested aquatic therapy 1x/ wk, couple openings over the next month, has another appt and the other doesn't have childcare. Next Visit Focus/Plan Next Note Type Treatment Note Next Visit Plan Next visit: Initiate UBE warm up. Continiue ther ex performed last tx and add to HEP if painfree. POC: Strengthening tolerance progression >= 10#. Progress OH and lifting activities tolerance.
--- NOTE | 2021-05-25 16:01 | PT.OTN ---
Current Diagnoses Impingement syndrome of right shoulder (05/25/21) Strain of muscle(s) and tendon(s) of the rotator cuff of right shoulder, subsequent encounter (05/25/21) Physical Therapy Treatment Note PT-OP-A Visit Information Start: 10/06/20 07:42 Freq: Status: Active Protocol: Document 05/25/21 14:30 AMB (Rec: 05/25/21 15:55 AMB [id number]) Out-Patient Physical Therapy Visit Information Visit Information Visit Type Treatment Note Visit Start Time 14:35 Visit Stop Time 15:15 Total Visit Minutes 40 Visit Number 40 PT-OP-B Current Condition Start: 10/06/20 07:42 Freq: Status: Active Protocol: Document 10/06/20 09:00 AMB (Rec: 10/06/20 09:15 AMB [id number]) Current Condition History of Current Condition Onset Date 08/15/20 Current Complaints R shoulder pain History of Current Condition 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 Had a MRI at [facility], Per pt report showed bicep tendon tear and labrum tear per pt report. Considering surgery. Does have ankylosing spondylitis. Not currently working because has a 10# lifting restriction and they don' t have work that can accomodate that. R shoulder stiffness currently. Difficulty sleeping. 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 Treatment Goals Patient/Caregiver Goals Reduce R shoulder pain returnt to work. Prior Functional Status Baseline Function- ADL's Independent Baseline Function- Mobility Independent Current Functional Impairments (Reported) Functional Limitations- ADL's Difficult lifting arm, lifting objects even of light weight (groceries) Personal Factors Other Personal Factors That May Effect Ankylosing spondylitis Therapy/Recovery PT-OP-C Subjective Start: 10/06/20 07:42 Freq: Status: Active Protocol: Document 05/25/21 14:30 AMB (Rec: 05/25/21 15:55 AMB [id number]) OP-PT Subjective Patient Comments Patient Comments Pt states he felt good during last PT appt but was sore afterwards, has been doing his exercises PT-OP-F Manual Assessment Start: 10/06/20 07:42 Freq: Status: Active Protocol: Document 10/06/20 09:00 AMB (Rec: 10/07/20 08:58 AMB [email or web address]) Manual Assessments Other Manual Assessments Other Manual Assessments Tenderness at acromion, attachment of long head of biceps, and throughout scapular muscles and upper traps. PT-OP-J Posture/Palpation/Skin Start: 10/06/20 07:42 Freq: Status: Active Protocol: Document 10/06/20 09:00 AMB (Rec: 10/07/20 08:58 AMB [email or web address]) Posture Evaluation Comments Posture Comments Flat lumbar and thoracic spine PT-OP-K Range of Motion Start: 10/06/20 07:42 Freq: Status: Active Protocol: Document 04/30/21 08:32 AMB (Rec: 04/30/21 08:38 AMB [id number]) Shoulder Goniometric Range of Motion Shoulder Right Active Flexion 165 Abduction 165 Horizontal Adduction 15 Internal Rotation Behind Back (text) L1 Comments C7 behind neck PT-OP-L Special Tests Start: 10/06/20 07:42 Freq: Status: Active Protocol: Document 02/09/21 16:06 AMB (Rec: 02/09/21 16:06 AMB [email or web address]) Special Tests Shoulder Special Tests Neer Impingement Comments not performed due to precautions [place] Impingement Comments not performed due to precautions PT-OP-M Strength Start: 10/06/20 07:42 Freq: Status: Active Protocol: Document 04/30/21 08:28 AMB (Rec: 04/30/21 08:32 AMB [id number]) Shoulder Strength Shoulder Manual Muscle Testing Right Flexion 4+ Good+ Abduction (C5) 4- Good- External Rotation 4- Good- Internal Rotation 4+ Good+ PT-OP-Q Treatments Start: 10/06/20 07:42 Freq: Status: Active Protocol: Document 05/25/21 14:46 AMB (Rec: 05/25/21 15:19 AMB [id number]) Cardio Equipment Upper Body Ergometer (UBE) Duration (Minutes) 5 Other pt fairly slow and gentle Therapeutic Exercises Prone Exercises elbow plank Prone Exercise Name assessed for PT only Equipment Used yoga mat Reps/Minutes 2x15 sec Comments on bench incline plank shld taps Prone Exercise Name assess PT only Side bilateral Equipment Used off table Reps/Minutes x10 alternate BUE Comments cued neutral spine/ TA- painfree Sidelying Exercises ER Sidelying Exercise Name reports tiring Side right Resistance 2#> #3 DB Reps/Minutes x10 each wt Comments good form 3 Sidelying Exercise Name abduction Resistance 2# Reps/Minutes 2x10 Standing Exercises tricep stretch Standing Exercise Name slide elbow up Side bilateral Equipment Used at wall corner Reps/Minutes 30s x2 Comments good feedback stretch pec stretch Side bilateral Equipment Used at wall corner Reps/Minutes 30 sec x2 Comments good feedback stretch body blade Standing Exercise Name punch down, front, OH Side right Resistance yellow, smallest Reps/Minutes 1 min each direction Comments pain free, just tiring Wall Walking into flexion Standing Exercise Name HEP review- added lift off wall Side right Reps/Minutes 5 Comments 160 deg FF, ABD Standing Exercise Name FF, scaption- Side right Resistance FF and scaption: #2 DB x10 Equipment Used mirror for self corrections Comments mild shoulder pinching at 90 degrees Other Exercises Prone over Tball Ts, Ys Other Exercise Name assessed for PT only Side bilateral Resistance AROM Equipment Used 65 cm Tball, B feet against wall Reps/Minutes x5 reps each Comments glut fac, TA fac, AROM- painfree 1 Other Exercise Name lifting from floor Resistance 2- 10# (1 each UE) Reps/Minutes x10 reps Comments painfree, cued scap retraction / depression at complete full stand upright 1/2 knee eccentric R shld flexion, ABD Other Exercise Name FF, ABD: reviewed HEP Side right Resistance TB #2 Equipment Used oval pad under R knee Reps/Minutes x10 Comments improved eccentric control PT-OP-R Modalities Start: 10/06/20 07:42 Freq: Status: Active Protocol: Document 03/16/21 15:00 ER (Rec: 03/16/21 15:58 ER [id number]) Hot Pack/Cold Pack Treatment cryocuff Patient Position Sitting Patient Tolerance Good Comments Good feedback response. PT-OP-T Assessment and Plan Start: 10/06/20 07:42 Freq: Status: Active Protocol: Document 05/25/21 14:30 AMB (Rec: 05/25/21 15:55 AMB [id number]) Physical Therapy Assessment Goals Three Impairment Pain Short Term Goal (STG) Flynn will improve his shoulder strength and ROM so that he can wash his back without shoulder pain. 05/01: Progress made: IR ROM improving, not yet equal to other side, but significantly improved. STG Duration 6 weeks Nursing Home Goal (LTG) Flynn will lift his arm over head without pain so that he can return to work without shoulder pain. NOT MET YET LTG Duration 12 weeks Two Impairment Strength Short Term Goal (STG) Flynn will improve his R shoulder strength to 4/5 in all planes. 05/01 Progress made: weakness in external rotation and abduction remain. STG Duration 6 weeks Lines Tender Goal (LTG) Flynn will lift 10# to shoulder height without an increase in shoulder pain. : if he keeps the weight close to his body, but if the weight is slightly away from his torso he cannot do this yet. LTG Duration 12 weeks One Impairment ROM Short Term Goal (STG) Flynn will improve his shoulder flexion (active) to 160 degrees. STG Duration MET Assessment Summary Assessment Pt tolerated exercise today but did have some pinching with overhead AROM activities. Encouraged in not allowing elevation of shoulder. Physical Therapy Plan Next Visit Focus/Plan Next Note Type Treatment Note Next Visit Plan Add ther ex to HEP, with helping pt to problem solve not having small dumbbells at home
--- NOTE | 2021-05-28 15:13 | PT.OTN ---
Current Diagnoses Impingement syndrome of right shoulder (05/28/21) Strain of muscle(s) and tendon(s) of the rotator cuff of right shoulder, subsequent encounter (05/28/21) Physical Therapy Treatment Note PT-OP-A Visit Information Start: 10/06/20 07:42 Freq: Status: Active Protocol: Document 05/28/21 14:34 SP (Rec: 05/28/21 15:31 SP [id number]) Out-Patient Physical Therapy Visit Information Visit Information Visit Type Treatment Note Visit Start Time 14:34 Visit Stop Time 15:13 Total Visit Minutes 39 Visit Number 41 Number of CHIEF MEDICAL TECHNOLOGIST Visits 1 Evaluation Information Evaluation Date 02/09/21 Precautions Precautions 05/14/21: spoke PA today: lifting allowed 2lb as much as wants, 5lb every so often but no > 10lb. Given at eval: See protocol biceps tenodesis, labral repair and clavicle excision on 01/22. note protocol states to wear sling for 4 weeks and allows elbow ROM but pt notes that he was told by surgeon to wear sling for 6 weeks and not to actively use elbow as he had more surgery that what was expected. 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 Had a MRI at [facility], Per pt report showed bicep tendon tear and labrum tear per pt report. Considering surgery. Does have ankylosing spondylitis. Not currently working because has a 10# lifting restriction and they don' t have work that can accomodate that. R shoulder stiffness currently. Difficulty sleeping. 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 Treatment Goals Patient/Caregiver Goals Reduce R shoulder pain returnt to work. Prior Functional Status Baseline Function- ADL's Independent Baseline Function- Mobility Independent Current Functional Impairments (Reported) Functional Limitations- ADL's Difficult lifting arm, lifting objects even of light weight (groceries) Personal Factors Other Personal Factors That May Effect Ankylosing spondylitis Therapy/Recovery PT-OP-C Subjective Start: 10/06/20 07:42 Freq: Status: Active Protocol: Document 05/28/21 14:34 SP (Rec: 05/28/21 15:31 SP [id number]) OP-PT Subjective Patient Comments Patient Comments Pt reported didn't sleep well, took energy drink just to stay awake and get to appt. Pt stated didn't do as much last tx but didn't have any adverse affects. Pt stated that the K taping helped with elbow decrease elbow pain, will go get tennis elbow strap . PT-OP-F Manual Assessment Start: 10/06/20 07:42 Freq: Status: Active Protocol: Document 10/06/20 09:00 AMB (Rec: 10/07/20 08:58 AMB [email or web address]) Manual Assessments Other Manual Assessments Other Manual Assessments Tenderness at acromion, attachment of long head of biceps, and throughout scapular muscles and upper traps. PT-OP-J Posture/Palpation/Skin Start: 10/06/20 07:42 Freq: Status: Active Protocol: Document 10/06/20 09:00 AMB (Rec: 10/07/20 08:58 AMB [email or web address]) Posture Evaluation Comments Posture Comments Flat lumbar and thoracic spine PT-OP-K Range of Motion Start: 10/06/20 07:42 Freq: Status: Active Protocol: Document 04/30/21 08:32 AMB (Rec: 04/30/21 08:38 AMB [id number]) Shoulder Goniometric Range of Motion Shoulder Right Active Flexion 165 Abduction 165 Horizontal Adduction 15 Internal Rotation Behind Back (text) L1 Comments C7 behind neck PT-OP-L Special Tests Start: 10/06/20 07:42 Freq: Status: Active Protocol: Document 02/09/21 16:06 AMB (Rec: 02/09/21 16:06 AMB [email or web address]) Special Tests Shoulder Special Tests Neer Impingement Comments not performed due to precautions [place] Impingement Comments not performed due to precautions PT-OP-M Strength Start: 10/06/20 07:42 Freq: Status: Active Protocol: Document 04/30/21 08:28 AMB (Rec: 04/30/21 08:32 AMB [id number]) Shoulder Strength Shoulder Manual Muscle Testing Right Flexion 4+ Good+ Abduction (C5) 4- Good- External Rotation 4- Good- Internal Rotation 4+ Good+ PT-OP-Q Treatments Start: 10/06/20 07:42 Freq: Status: Active Protocol: Document 05/28/21 14:34 SP (Rec: 05/28/21 15:31 SP [id number]) Cardio Equipment Upper Body Ergometer (UBE) Duration (Minutes) 6 RPM 90 Seat Position 13 seen Height 3 Other pt fairly slow and gentle, no pain Therapeutic Exercises Prone Exercises elbow plank Prone Exercise Name assessed for PT only Equipment Used off body column bench Reps/Minutes 45 sec Comments shaky, little discomfort but not pain. Standing Exercises upright row to chest level Standing Exercise Name single arm (PT only assess) Side right Resistance 5#DB Reps/Minutes x5 reps Comments tiring, not able get hand touch chest, cued no UT recruitment tricep stretch Standing Exercise Name slide elbow up Side bilateral Equipment Used at wall corner Reps/Minutes 30s x2 Comments good feedback stretch body blade Standing Exercise Name punch down, front, OH Side right Resistance medium Reps/Minutes 30s each direction Comments pain free, just tiring, can feel OH but not pain posterior capsule stretch/ HADD Standing Exercise Name reviewed HEP (good gentle posterior R shld stretch) Side right Reps/Minutes x2 , 10 sec hold Comments cued trunk alignment, gentle ROM- not over pressure, painfree R shld IR Standing Exercise Name IR/ER Side right Resistance 2# Tb #2 Equipment Used towel under arm, removed Reps/Minutes 2x10 each Comments just tiring, painfree Wall Walking into flexion Standing Exercise Name Ys off wall Side bilateral Reps/Minutes x5 Comments 180 deg, good form FF, ABD Standing Exercise Name FF Side right Resistance FF and scaption: #3 DB x10 Equipment Used mirror for self corrections Comments mild irritation grinding feeling at 90 degrees, not pain though punch OH flexion & ABD Standing Exercise Name Punch OH Side right Resistance #3 DB Equipment Used mirror for improved self corrections Reps/Minutes 7 reps, 3 reps Comments painfree, slightly forward shld, felt grind pop so stops not hurt though Other Exercises Prone over Tball Ts, Ys Other Exercise Name Ts, Ys, Rows Side bilateral Resistance AROM Equipment Used 65 cm Tball, B feet against wall Reps/Minutes x10 reps each Comments knees straight, glut fac, TA fac, AROM- painfree bridge over T ball Other Exercise Name supine: pec stretch, FF, Ts, 1 /2 X (modified range R OH) Side bilateral Resistance TB #1 Equipment Used 65 cm Tball Reps/Minutes 30s stretch, x10 each Comments painfree, cued slow throughout ROM Self-Care/Home Management Treatment Education Patient Education Body Mechanics,Home Exercise Program,Joint Protection,Pain Management,Posture Other Education CHIEF MEDICAL TECHNOLOGIST discussed awareness of R shld and scap complex alignment and utilizing garage tools/rocks approx same weight using in PT to assist progress strengthening carryover at home. Verbalized confirmation oh yeah, I can look at what I have. PT-OP-R Modalities Start: 10/06/20 07:42 Freq: Status: Active Protocol: Document 03/16/21 15:00 ER (Rec: 03/16/21 15:58 ER [id number]) Hot Pack/Cold Pack Treatment cryocuff Patient Position Sitting Patient Tolerance Good Comments Good feedback response. PT-OP-T Assessment and Plan Start: 10/06/20 07:42 Freq: Status: Active Protocol: Document 05/28/21 14:34 SP (Rec: 05/28/21 15:31 SP [id number]) Physical Therapy Assessment Goals Three Impairment Pain Short Term Goal (STG) Flynn will improve his shoulder strength and ROM so that he can wash his back without shoulder pain. 05/01: Progress made: IR ROM improving, not yet equal to other side, but significantly improved. STG Duration 6 weeks Halfway Goal (LTG) Flynn will lift his arm over head without pain so that he can return to work without shoulder pain. NOT MET YET LTG Duration 12 weeks Two Impairment Strength Short Term Goal (STG) Flynn will improve his R shoulder strength to 4/5 in all planes. 05/01 Progress made: weakness in external rotation and abduction remain. STG Duration 6 weeks Watch Mechanic Goal (LTG) Flynn will lift 10# to shoulder height without an increase in shoulder pain. : if he keeps the weight close to his body, but if the weight is slightly away from his torso he cannot do this yet. LTG Duration 12 weeks One Impairment ROM Short Term Goal (STG) Flynn will improve his shoulder flexion (active) to 160 degrees. STG Duration MET Assessment Summary Assessment Pt able tolerated ther ex today,Pt able to progress light wt strengthening ther ex RUE away from body, reported little grind feeling/ tired but states not painful during single arm resisted upright row, FF and OH press, occasiona cues for scap retract/ depression awareness. ELbow plank little shaky tiring, no pain cued for trunk alignement. Physical Therapy Plan Frequency and Duration Frequency of Treatment 2x/Week Duration of Treatment 8 weeks Plan of Care Start Date 04/30/20 Plan of Care End Date 06/25/21 Therapeutic Interventions Therapeutic Interventions Aquatic Therapy,Home Exercise Program,Joint Mobilizations, Manual Therapy,Neuromuscular Re-education,Self-Care/Home Management,Therapeutic Activities,Therapeutic Exercises Modalities Cold Pack/Ice Massage,Electric Stimulation,Hot Packs Next Visit Focus/Plan Next Note Type Treatment Note Next Visit Plan Assess weighted upright row initiatated, assimulate lifting motion did at work. Progress strengthening tolerance front/ OH, side painfree.
--- NOTE | 2021-06-04 13:43 | PT-OP ANOTE ---
Patient called minutes before appt to cancel, concerned feeling covid sick.
--- NOTE | 2021-06-10 12:21 | PT.OTN ---
Current Diagnoses Impingement syndrome of right shoulder (06/10/21) Strain of muscle(s) and tendon(s) of the rotator cuff of right shoulder, subsequent encounter (06/10/21) Physical Therapy Treatment Note PT-OP-A Visit Information Start: 10/06/20 07:42 Freq: Status: Active Protocol: Document 06/10/21 11:20 AMB (Rec: 06/10/21 12:20 AMB [id number]) Out-Patient Physical Therapy Visit Information Visit Information Visit Type Treatment Note Visit Start Time 11:20 Visit Stop Time 12:00 Total Visit Minutes 40 Visit Number 42 Number of SALES AND MARKETING ASSISTANT Visits 0 PT-OP-B Current Condition Start: 10/06/20 07:42 Freq: Status: Active Protocol: Document 10/06/20 09:00 AMB (Rec: 10/06/20 09:15 AMB [id number]) Current Condition History of Current Condition Onset Date 08/15/20 Current Complaints R shoulder pain History of Current Condition 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 Had a MRI at [facility], Per pt report showed bicep tendon tear and labrum tear per pt report. Considering surgery. Does have ankylosing spondylitis. Not currently working because has a 10# lifting restriction and they don' t have work that can accomodate that. R shoulder stiffness currently. Difficulty sleeping. 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 Treatment Goals Patient/Caregiver Goals Reduce R shoulder pain returnt to work. Prior Functional Status Baseline Function- ADL's Independent Baseline Function- Mobility Independent Current Functional Impairments (Reported) Functional Limitations- ADL's Difficult lifting arm, lifting objects even of light weight (groceries) Personal Factors Other Personal Factors That May Effect Ankylosing spondylitis Therapy/Recovery PT-OP-C Subjective Start: 10/06/20 07:42 Freq: Status: Active Protocol: Document 06/10/21 11:20 AMB (Rec: 06/10/21 12:20 AMB [id number]) OP-PT Subjective Patient Comments Patient Comments Pt has been sick for the past 2 weeks, feeling better now. Has tried to sleep on the shoulder a couple time and that is still quite painful. PT-OP-F Manual Assessment Start: 10/06/20 07:42 Freq: Status: Active Protocol: Document 10/06/20 09:00 AMB (Rec: 10/07/20 08:58 AMB [email or web address]) Manual Assessments Other Manual Assessments Other Manual Assessments Tenderness at acromion, attachment of long head of biceps, and throughout scapular muscles and upper traps. PT-OP-J Posture/Palpation/Skin Start: 10/06/20 07:42 Freq: Status: Active Protocol: Document 10/06/20 09:00 AMB (Rec: 10/07/20 08:58 AMB [email or web address]) Posture Evaluation Comments Posture Comments Flat lumbar and thoracic spine PT-OP-K Range of Motion Start: 10/06/20 07:42 Freq: Status: Active Protocol: Document 04/30/21 08:32 AMB (Rec: 04/30/21 08:38 AMB [id number]) Shoulder Goniometric Range of Motion Shoulder Right Active Flexion 165 Abduction 165 Horizontal Adduction 15 Internal Rotation Behind Back (text) L1 Comments C7 behind neck PT-OP-L Special Tests Start: 10/06/20 07:42 Freq: Status: Active Protocol: Document 02/09/21 16:06 AMB (Rec: 02/09/21 16:06 AMB [email or web address]) Special Tests Shoulder Special Tests Neer Impingement Comments not performed due to precautions [place] Impingement Comments not performed due to precautions PT-OP-M Strength Start: 10/06/20 07:42 Freq: Status: Active Protocol: Document 04/30/21 08:28 AMB (Rec: 04/30/21 08:32 AMB [id number]) Shoulder Strength Shoulder Manual Muscle Testing Right Flexion 4+ Good+ Abduction (C5) 4- Good- External Rotation 4- Good- Internal Rotation 4+ Good+ PT-OP-Q Treatments Start: 10/06/20 07:42 Freq: Status: Active Protocol: Document 06/10/21 11:20 AMB (Rec: 06/10/21 12:20 AMB [id number]) Cardio Equipment Upper Body Ergometer (UBE) Duration (Minutes) 6 RPM 90 Seat Position 13 seen Height 3 Other pt fairly slow and gentle, no pain Therapeutic Exercises Sidelying Exercises ER Sidelying Exercise Name reports tiring Side right Resistance #3 DB Reps/Minutes x10 each wt Comments good form 3 Sidelying Exercise Name abduction Resistance 3# Reps/Minutes 2x10 Standing Exercises 10 Standing Exercise Name abduction -t band with elbow bent to 90d, neutral rotation Equipment Used #1 t band Reps/Minutes 2x10 Comments to 70 d abduction upright row to chest level Standing Exercise Name single arm (PT only assess) Side right Resistance 10#DB Reps/Minutes 2x10 Comments tiring, not able get hand touch chest, cued no [place] recruitment body blade Standing Exercise Name punch down, front, OH Side right Resistance medium Reps/Minutes 30s each direction Comments pain free, just tiring, can feel OH but not pain posterior capsule stretch/ HADD Standing Exercise Name reviewed HEP (good gentle posterior R shld stretch) Side right Reps/Minutes x2 , 10 sec hold Comments cued trunk alignment, gentle ROM- not over pressure, painfree Other Exercises 1/2 knee eccentric R shld flexion, ABD Other Exercise Name FF, ABD: reviewed HEP Side right Resistance TB #2 Equipment Used oval pad under R knee Reps/Minutes x10 Comments improved eccentric control PT-OP-R Modalities Start: 10/06/20 07:42 Freq: Status: Active Protocol: Document 03/16/21 15:00 ER (Rec: 03/16/21 15:58 ER [id number]) Hot Pack/Cold Pack Treatment cryocuff Patient Position Sitting Patient Tolerance Good Comments Good feedback response. PT-OP-T Assessment and Plan Start: 10/06/20 07:42 Freq: Status: Active Protocol: Document 06/10/21 11:20 AMB (Rec: 06/10/21 12:20 AMB [id number]) Physical Therapy Assessment Assessment Summary Assessment Pt states he has not tried lifting anything around the house yet other than t band exercises, but he is getting his tax return soon and then will buy some weights for home use. Pt tolerated increased weight with upright row well. Physical Therapy Plan Next Visit Focus/Plan Next Note Type Treatment Note Next Visit Plan Review t band abduction ( trying to reproduce lifting pt would do at work to shoulder height)
--- NOTE | 2021-06-11 07:30 | PT-OP ANOTE ---
Rescheduled 06/11/21's appt 24hr in advance to Tue.
--- NOTE | 2021-06-12 10:30 | PT.OTN ---
Current Diagnoses Impingement syndrome of right shoulder (06/12/21) Strain of muscle(s) and tendon(s) of the rotator cuff of right shoulder, subsequent encounter (06/12/21) Physical Therapy Treatment Note PT-OP-A Visit Information Start: 10/06/20 07:42 Freq: Status: Active Protocol: Document 06/12/21 09:54 SP (Rec: 06/12/21 10:32 SP [id number]) Out-Patient Physical Therapy Visit Information Visit Information Visit Type Treatment Note Visit Start Time 09:52 Visit Stop Time 10:30 Total Visit Minutes 38 Visit Number 43 Number of HOT DIPPER Visits 1 Evaluation Information Evaluation Date 02/09/21 PT-OP-B Current Condition Start: 10/06/20 07:42 Freq: Status: Active Protocol: Document 10/06/20 09:00 AMB (Rec: 10/06/20 09:15 AMB [id number]) Current Condition History of Current Condition Onset Date 08/15/20 Current Complaints R shoulder pain History of Current Condition 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 Had a MRI at [facility], Per pt report showed bicep tendon tear and labrum tear per pt report. Considering surgery. Does have ankylosing spondylitis. Not currently working because has a 10# lifting restriction and they don' t have work that can accomodate that. R shoulder stiffness currently. Difficulty sleeping. 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 Treatment Goals Patient/Caregiver Goals Reduce R shoulder pain returnt to work. Prior Functional Status Baseline Function- ADL's Independent Baseline Function- Mobility Independent Current Functional Impairments (Reported) Functional Limitations- ADL's Difficult lifting arm, lifting objects even of light weight (groceries) Personal Factors Other Personal Factors That May Effect Ankylosing spondylitis Therapy/Recovery PT-OP-C Subjective Start: 10/06/20 07:42 Freq: Status: Active Protocol: Document 06/12/21 09:54 SP (Rec: 06/12/21 10:32 SP [id number]) OP-PT Subjective Patient Comments Patient Comments Pt stated tried to sleep on R shld since last tx and wasn't a good idea, had alot of pain and hand goes numb, so sleeps on L side holding a pillow. Pt states R shld has been hurting a little bit since last tx so didn't do the exercises, states if has pain tends to not do anything. Pt stated had to cancel Rheumatology appt due to sick on 06/01/21, hasnt rescheduled yet. PT-OP-F Manual Assessment Start: 10/06/20 07:42 Freq: Status: Active Protocol: Document 10/06/20 09:00 AMB (Rec: 10/07/20 08:58 AMB [id number]) Manual Assessments Other Manual Assessments Other Manual Assessments Tenderness at acromion, attachment of long head of biceps, and throughout scapular muscles and upper traps. PT-OP-J Posture/Palpation/Skin Start: 10/06/20 07:42 Freq: Status: Active Protocol: Document 10/06/20 09:00 AMB (Rec: 10/07/20 08:58 AMB [id number]) Posture Evaluation Comments Posture Comments Flat lumbar and thoracic spine PT-OP-K Range of Motion Start: 10/06/20 07:42 Freq: Status: Active Protocol: Document 04/30/21 08:32 AMB (Rec: 04/30/21 08:38 AMB [id number]) Shoulder Goniometric Range of Motion Shoulder Right Active Flexion 165 Abduction 165 Horizontal Adduction 15 Internal Rotation Behind Back (text) L1 Comments C7 behind neck PT-OP-L Special Tests Start: 10/06/20 07:42 Freq: Status: Active Protocol: Document 02/09/21 16:06 AMB (Rec: 02/09/21 16:06 AMB [email or web address]) Special Tests Shoulder Special Tests Neer Impingement Comments not performed due to precautions [place] Codey Impingement Comments not performed due to precautions PT-OP-M Strength Start: 10/06/20 07:42 Freq: Status: Active Protocol: Document 04/30/21 08:28 AMB (Rec: 04/30/21 08:32 AMB [id number]) Shoulder Strength Shoulder Manual Muscle Testing Right Flexion 4+ Good+ Abduction (C5) 4- Good- External Rotation 4- Good- Internal Rotation 4+ Good+ PT-OP-Q Treatments Start: 10/06/20 07:42 Freq: Status: Active Protocol: Document 06/12/21 09:54 SP (Rec: 06/12/21 10:32 SP [id number]) Cardio Equipment Upper Body Ergometer (UBE) Duration (Minutes) 6 RPM 70 Seat Position 13 seen Height 3 Other pt fairly slow and gentle, no pain Therapeutic Exercises Supine Exercises 4 Supine Exercise Name horizontal add tolerant range Side right Resistance #1 Db x15, #2 Db x10 Comments feels good ROM stretch Standing Exercises 10 Standing Exercise Name abduction -t band with elbow bent to 90d, neutral rotation Equipment Used #1 t band Reps/Minutes 2x10 Comments to 80 deg abduction upright row to chest level Standing Exercise Name double arm Side right Resistance 10#DB Reps/Minutes x10 Comments little discomfort anterior R shdl and elbow tricep stretch Standing Exercise Name slide elbow up Side bilateral Equipment Used at wall corner Reps/Minutes 30s x2 Comments states pressure but doesn't hurt, good stretch body blade Standing Exercise Name punch down, front, OH Side right Resistance medium Reps/Minutes 30s each direction Comments pain free, just tiring, can feel OH but not pain R shld IR Standing Exercise Name IR/ER Side right Resistance 2# Tb #2 Equipment Used towel under arm, removed Reps/Minutes 2x10 each Comments just tiring, painfree Wall Walking into flexion Standing Exercise Name Ys off wall Side bilateral Reps/Minutes x9, x9 Comments 180 deg, good form- discomfort at last few reps punch OH flexion & ABD Standing Exercise Name Punch OH Side right Resistance #3 DB Equipment Used mirror for improved self corrections Reps/Minutes 5 reps then stopped due to pain Comments slightly forward R shld 1 Standing Exercise Name forward punch ( shld height) Resistance Tb #2 Equipment Used stagger stance Reps/Minutes 2x10 Comments good form Manual Therapy Treatment Soft Tissue Mobilization Shoulder Body Location R lat, serratus anterior, Teres Mobilization Type Strumming,Sustained Pressure Intensity/Depth Moderate Body Position Hooklying Comments manual Joint Mobilizations 1 Joint GH joint Direction AP, inferior glide Grade II PT-OP-R Modalities Start: 10/06/20 07:42 Freq: Status: Active Protocol: Document 03/16/21 15:00 ER (Rec: 03/16/21 15:58 ER [id number]) Hot Pack/Cold Pack Treatment cryocuff Patient Position Sitting Patient Tolerance Good Comments Good feedback response. PT-OP-T Assessment and Plan Start: 10/06/20 07:42 Freq: Status: Active Protocol: Document 06/12/21 09:54 SP (Rec: 06/12/21 10:32 SP [id number]) Physical Therapy Assessment Goals Three Impairment Pain Short Term Goal (STG) Flynn will improve his shoulder strength and ROM so that he can wash his back without shoulder pain. 05/01: Progress made: IR ROM improving, not yet equal to other side, but significantly improved. STG Duration 6 weeks Senior Buyer Planner Goal (LTG) Flynn will lift his arm over head without pain so that he can return to work without shoulder pain. NOT MET YET LTG Duration 12 weeks Two Impairment Strength Short Term Goal (STG) Flynn will improve his R shoulder strength to 4/5 in all planes. 05/01 Progress made: weakness in external rotation and abduction remain. STG Duration 6 weeks Shelter Goal (LTG) Flynn will lift 10# to shoulder height without an increase in shoulder pain. : if he keeps the weight close to his body, but if the weight is slightly away from his torso he cannot do this yet. LTG Duration 12 weeks One Impairment ROM Short Term Goal (STG) Flynn will improve his shoulder flexion (active) to 160 degrees. STG Duration MET Assessment Summary Assessment Pt experienced some discomfort and low level pain in R shld, improved post manual and horizontal ADD stating haven' t done this one before, feels like get a good ROM stretch. HOT DIPPER reminded continue with HEP at home to progress ROM and strength now that feeling better to progress functional strength back to PLOF, verbalized agreement. Physical Therapy Plan Frequency and Duration Frequency of Treatment 2x/Week Duration of Treatment 8 weeks Plan of Care Start Date 04/30/20 Plan of Care End Date 06/25/21 Therapeutic Interventions Therapeutic Interventions Aquatic Therapy,Home Exercise Program,Joint Mobilizations, Manual Therapy,Neuromuscular Re-education,Self-Care/Home Management,Therapeutic Activities,Therapeutic Exercises Modalities Cold Pack/Ice Massage,Electric Stimulation,Hot Packs Next Visit Focus/Plan Next Note Type Treatment Note Next Visit Plan Review t band abduction ( trying to reproduce lifting pt would do at work to shoulder height)
--- NOTE | 2021-06-15 15:39 | PT.OTN ---
Current Diagnoses Impingement syndrome of right shoulder (06/15/21) Strain of muscle(s) and tendon(s) of the rotator cuff of right shoulder, subsequent encounter (06/15/21) Physical Therapy Treatment Note PT-OP-A Visit Information Start: 10/06/20 07:42 Freq: Status: Active Protocol: Document 06/15/21 13:49 AMB (Rec: 06/15/21 14:28 AMB [id number]) Out-Patient Physical Therapy Visit Information Visit Information Visit Type Progress Note Visit Start Time 13:00 Visit Stop Time 13:45 Total Visit Minutes 45 Visit Number 45 PT-OP-B Current Condition Start: 10/06/20 07:42 Freq: Status: Active Protocol: Document 10/06/20 09:00 AMB (Rec: 10/06/20 09:15 AMB [id number]) Current Condition History of Current Condition Onset Date 08/15/20 Current Complaints R shoulder pain History of Current Condition 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 Had a MRI at [facility], Per pt report showed bicep tendon tear and labrum tear per pt report. Considering surgery. Does have ankylosing spondylitis. Not currently working because has a 10# lifting restriction and they don' t have work that can accomodate that. R shoulder stiffness currently. Difficulty sleeping. 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 Treatment Goals Patient/Caregiver Goals Reduce R shoulder pain returnt to work. Prior Functional Status Baseline Function- ADL's Independent Baseline Function- Mobility Independent Current Functional Impairments (Reported) Functional Limitations- ADL's Difficult lifting arm, lifting objects even of light weight (groceries) Personal Factors Other Personal Factors That May Effect Ankylosing spondylitis Therapy/Recovery PT-OP-C Subjective Start: 10/06/20 07:42 Freq: Status: Active Protocol: Document 06/15/21 13:49 AMB (Rec: 06/15/21 14:28 AMB [id number]) OP-PT Subjective Patient Comments Patient Comments Pt continues to have pain with sleeping on the right shoulder. PT-OP-F Manual Assessment Start: 10/06/20 07:42 Freq: Status: Active Protocol: Document 10/06/20 09:00 AMB (Rec: 10/07/20 08:58 AMB [email or web address]) Manual Assessments Other Manual Assessments Other Manual Assessments Tenderness at acromion, attachment of long head of biceps, and throughout scapular muscles and upper traps. PT-OP-J Posture/Palpation/Skin Start: 10/06/20 07:42 Freq: Status: Active Protocol: Document 10/06/20 09:00 AMB (Rec: 10/07/20 08:58 AMB [email or web address]) Posture Evaluation Comments Posture Comments Flat lumbar and thoracic spine PT-OP-K Range of Motion Start: 10/06/20 07:42 Freq: Status: Active Protocol: Document 04/30/21 08:32 AMB (Rec: 04/30/21 08:38 AMB [id number]) Shoulder Goniometric Range of Motion Shoulder Right Active Flexion 165 Abduction 165 Horizontal Adduction 15 Internal Rotation Behind Back (text) L1 Comments C7 behind neck PT-OP-L Special Tests Start: 10/06/20 07:42 Freq: Status: Active Protocol: Document 02/09/21 16:06 AMB (Rec: 02/09/21 16:06 AMB [email or web address]) Special Tests Shoulder Special Tests Neer Impingement Comments not performed due to precautions [place] Impingement Comments not performed due to precautions PT-OP-M Strength Start: 10/06/20 07:42 Freq: Status: Active Protocol: Document 04/30/21 08:28 AMB (Rec: 04/30/21 08:32 AMB [id number]) Shoulder Strength Shoulder Manual Muscle Testing Right Flexion 4+ Good+ Abduction (C5) 4- Good- External Rotation 4- Good- Internal Rotation 4+ Good+ PT-OP-Q Treatments Start: 10/06/20 07:42 Freq: Status: Active Protocol: Document 06/15/21 13:49 AMB (Rec: 06/15/21 14:28 AMB [id number]) Therapeutic Exercises Supine Exercises 4 Supine Exercise Name horizontal add tolerant range Side right Resistance 2# db 2x10 Comments feels good ROM stretch Sidelying Exercises ER Sidelying Exercise Name reports tiring Side right Resistance #4 DB Reps/Minutes x10 each wt Comments good form 3 Sidelying Exercise Name abduction Resistance 4# Reps/Minutes 2x10 Comments ~0-120d Standing Exercises 10 Standing Exercise Name abduction -t band with elbow bent to 90d, neutral rotation Equipment Used #2 t band Reps/Minutes 2x10 Comments to 80 deg abduction upright row to chest level Standing Exercise Name double arm Side right Resistance 10#DB Reps/Minutes x10 tricep stretch Standing Exercise Name slide elbow up Side bilateral Equipment Used at wall corner Reps/Minutes 30s x2 Comments good stretch Wall Walking into flexion Standing Exercise Name Ys off wall Side bilateral Reps/Minutes x9, x9 Comments 180 deg, good form- 1 Standing Exercise Name forward punch ( shld height) Resistance Tb #3 Equipment Used stagger stance Reps/Minutes 2x10 Comments good form PT-OP-R Modalities Start: 10/06/20 07:42 Freq: Status: Active Protocol: Document 03/16/21 15:00 ER (Rec: 03/16/21 15:58 ER [id number]) Hot Pack/Cold Pack Treatment cryocuff Patient Position Sitting Patient Tolerance Good Comments Good feedback response. PT-OP-T Assessment and Plan Start: 10/06/20 07:42 Freq: Status: Active Protocol: Document 06/15/21 13:49 AMB (Rec: 06/15/21 14:28 AMB [id number]) Physical Therapy Assessment Goals Three Impairment Pain Short Term Goal (STG) Flynn will improve his shoulder strength and ROM so that he can wash his back without shoulder pain. 06/15: Progress made: IR ROM improving, not yet equal to other side, but significantly improved, pt continueds to note stiffness, ROM is really WFL but not equal to other side. STG Duration 6 weeks Merchandise Deliverer Goal (LTG) Flynn will lift his arm over head without pain so that he can return to work without shoulder pain. 06/15: NOT MET YET- pt can lift his arm overhead but cannot lift more than 4-5# without pain, and has difficulty lifting any weight repetetively overhead. LTG Duration 12 weeks Two Impairment Strength Short Term Goal (STG) Flynn will improve his R shoulder strength to 4/5 in all planes. 06/15: Progress made: mild weakness in external rotation and abduction remain. STG Duration 6 weeks Residential Goal (LTG) Flynn will lift 10# to shoulder height without an increase in shoulder pain. : if he keeps the weight close to his body, but if the weight is slightly away from his torso he cannot do this yet. LTG Duration 12 weeks One Impairment ROM Short Term Goal (STG) Flynn will improve his shoulder flexion (active) to 160 degrees. STG Duration MET Assessment Summary Assessment Flynn is progressing with tolerating weights above shoulder height. Progressed some exercises to 4# today. Does continue to fatigue into abduction and ER quickly. He is seeing surgeons office this week, and was instructed to discuss lifting restrictions at that time so we can hopefully progress strengthening further. Physical Therapy Plan Next Visit Focus/Plan Next Note Type Treatment Note
--- NOTE | 2021-06-19 16:10 | PT.OTN ---
Current Diagnoses Impingement syndrome of right shoulder (06/19/21) Strain of muscle(s) and tendon(s) of the rotator cuff of right shoulder, subsequent encounter (06/19/21) Physical Therapy Treatment Note PT-OP-A Visit Information Start: 10/06/20 07:42 Freq: Status: Active Protocol: Document 06/19/21 13:45 AMB (Rec: 06/19/21 14:27 AMB [id number]) Out-Patient Physical Therapy Visit Information Visit Information Visit Type Treatment Note Visit Start Time 13:45 Visit Stop Time 14:30 Total Visit Minutes 45 Visit Number 45 PT-OP-B Current Condition Start: 10/06/20 07:42 Freq: Status: Active Protocol: Document 10/06/20 09:00 AMB (Rec: 10/06/20 09:15 AMB [id number]) Current Condition History of Current Condition Onset Date 08/15/20 Current Complaints R shoulder pain History of Current Condition 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 Had a MRI at [facility], Per pt report showed bicep tendon tear and labrum tear per pt report. Considering surgery. Does have ankylosing spondylitis. Not currently working because has a 10# lifting restriction and they don' t have work that can accomodate that. R shoulder stiffness currently. Difficulty sleeping. 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 Treatment Goals Patient/Caregiver Goals Reduce R shoulder pain returnt to work. Prior Functional Status Baseline Function- ADL's Independent Baseline Function- Mobility Independent Current Functional Impairments (Reported) Functional Limitations- ADL's Difficult lifting arm, lifting objects even of light weight (groceries) Personal Factors Other Personal Factors That May Effect Ankylosing spondylitis Therapy/Recovery PT-OP-C Subjective Start: 10/06/20 07:42 Freq: Status: Active Protocol: Document 06/19/21 13:45 AMB (Rec: 06/19/21 14:27 AMB [id number]) OP-PT Subjective Patient Comments Patient Comments Saw PA who increased lifting restriction to 20# per pt report. PT-OP-F Manual Assessment Start: 10/06/20 07:42 Freq: Status: Active Protocol: Document 10/06/20 09:00 AMB (Rec: 10/07/20 08:58 AMB [email or web address]) Manual Assessments Other Manual Assessments Other Manual Assessments Tenderness at acromion, attachment of long head of biceps, and throughout scapular muscles and upper traps. PT-OP-J Posture/Palpation/Skin Start: 10/06/20 07:42 Freq: Status: Active Protocol: Document 10/06/20 09:00 AMB (Rec: 10/07/20 08:58 AMB [email or web address]) Posture Evaluation Comments Posture Comments Flat lumbar and thoracic spine PT-OP-K Range of Motion Start: 10/06/20 07:42 Freq: Status: Active Protocol: Document 04/30/21 08:32 AMB (Rec: 04/30/21 08:38 AMB [id number]) Shoulder Goniometric Range of Motion Shoulder Right Active Flexion 165 Abduction 165 Horizontal Adduction 15 Internal Rotation Behind Back (text) L1 Comments C7 behind neck PT-OP-L Special Tests Start: 10/06/20 07:42 Freq: Status: Active Protocol: Document 02/09/21 16:06 AMB (Rec: 02/09/21 16:06 AMB [email or web address]) Special Tests Shoulder Special Tests Neer Impingement Comments not performed due to precautions [place] Impingement Comments not performed due to precautions PT-OP-M Strength Start: 10/06/20 07:42 Freq: Status: Active Protocol: Document 04/30/21 08:28 AMB (Rec: 04/30/21 08:32 AMB [id number]) Shoulder Strength Shoulder Manual Muscle Testing Right Flexion 4+ Good+ Abduction (C5) 4- Good- External Rotation 4- Good- Internal Rotation 4+ Good+ PT-OP-Q Treatments Start: 10/06/20 07:42 Freq: Status: Active Protocol: Document 06/19/21 13:45 AMB (Rec: 06/19/21 14:27 AMB [id number]) Cardio Equipment Upper Body Ergometer (UBE) Duration (Minutes) 6 RPM 80 Seat Position 13 seen Height 3 Other asked pt to increase RPM as tolerated Therapeutic Exercises Standing Exercises 11 Standing Exercise Name box lift from floor to mid abdomen Resistance 20# Reps/Minutes 2x10 10 Standing Exercise Name abduction -t band with elbow bent to 90d, neutral rotation Equipment Used #2 t band Reps/Minutes 2x10 Comments to 80 deg abduction upright row to chest level Standing Exercise Name double arm Side right Resistance 10#DB Reps/Minutes x10 body blade Standing Exercise Name punch down, front, [place] Side right Resistance large Reps/Minutes 30s each direction Comments pain free, just tiring, can feel [place] but not pain R shld IR Standing Exercise Name IR/ER Side right Resistance #4 IR, #2ER Reps/Minutes 2x10 each Comments just tiring, painfree FF, ABD Standing Exercise Name FF Side right Resistance FF and scaption: #2 DB 2x10 Comments 180-120 degrees 2 Standing Exercise Name t band ext Resistance #4 tband Reps/Minutes 2x10 PT-OP-R Modalities Start: 10/06/20 07:42 Freq: Status: Active Protocol: Document 03/16/21 15:00 ER (Rec: 03/16/21 15:58 ER [id number]) Hot Pack/Cold Pack Treatment cryocuff Patient Position Sitting Patient Tolerance Good Comments Good feedback response. PT-OP-T Assessment and Plan Start: 10/06/20 07:42 Freq: Status: Active Protocol: Document 06/19/21 13:45 AMB (Rec: 06/19/21 16:04 AMB [id number]) Physical Therapy Assessment Goals Three Impairment Pain Short Term Goal (STG) Flynn will improve his shoulder strength and ROM so that he can wash his back without shoulder pain. 06/15: Progress made: IR ROM improving, not yet equal to other side, but significantly improved, pt continueds to note stiffness, ROM is really WFL but not equal to other side. STG Duration 6 weeks Telephone Clerk Goal (LTG) Flynn will lift his arm over head without pain so that he can return to work without shoulder pain. 06/15: NOT MET YET- pt can lift his arm overhead but cannot lift more than 4-5# without pain, and has difficulty lifting any weight repetetively overhead. LTG Duration 12 weeks Two Impairment Strength Short Term Goal (STG) Flynn will improve his R shoulder strength to 4/5 in all planes. 06/15: Progress made: mild weakness in external rotation and abduction remain. STG Duration 6 weeks Penitentiary Goal (LTG) Flynn will lift 10# to shoulder height without an increase in shoulder pain. : if he keeps the weight close to his body, but if the weight is slightly away from his torso he cannot do this yet. LTG Duration 12 weeks One Impairment ROM Short Term Goal (STG) Flynn will improve his shoulder flexion (active) to 160 degrees. STG Duration MET Assessment Summary Assessment Pt had less overall discomfort today. Did tolerate lifting 20# (with both arms) to mid abdomen height repetitively. Will need to progress this as well as continued overhead strengthening pt currently has pain with flexion at 90-100 degrees but we have been working both above and below these levels. Physical Therapy Plan Next Visit Focus/Plan Next Note Type Treatment Note Next Visit Plan Progress strengthening both close to body and above shoulder height.
--- NOTE | 2021-06-26 07:56 | PT.OPPOC ---
Physical, Occupational & Speech Therapy At [facility] Current Diagnoses Impingement syndrome of right shoulder (06/19/21) Strain of muscle(s) and tendon(s) of the rotator cuff of right shoulder, subsequent encounter (06/19/21) Visit Care Team Role Provider Type Ray Stover DO Primary Care Provider Non-Staff Specialty: Medical Address: [address] [place] [address], [place], [address] Fax: Email: Tylor Aguayo MD Attending Provider Non-Staff Referring Provider Specialty: Physical Medicine and Rehab Address: [facility], [place], [address] Email: Plan Of Care PT-OP-T Assessment and Plan Start: 10/06/20 07:42 Freq: Status: Active Protocol: Document 06/19/21 13:45 AMB (Rec: 06/19/21 16:04 AMB [id number]) Physical Therapy Assessment Goals Three Impairment Pain Short Term Goal (STG) Flynn will improve his shoulder strength and ROM so that he can wash his back without shoulder pain. 06/15: Progress made: IR ROM improving, not yet equal to other side, but significantly improved, pt continueds to note stiffness, ROM is really WFL but not equal to other side. STG Duration 6 weeks Senior Care Goal (LTG) Flynn will lift his arm over head without pain so that he can return to work without shoulder pain. 06/15: NOT MET YET- pt can lift his arm overhead but cannot lift more than 4-5# without pain, and has difficulty lifting any weight repetitively overhead. LTG Duration 12 weeks Two Impairment Strength Short Term Goal (STG) Flynn will improve his R shoulder strength to 4/5 in all planes. 06/15: Progress made: mild weakness in external rotation and abduction remain. STG Duration 6 weeks Dry Plasterer Goal (LTG) Flynn will lift 10# to shoulder height without an increase in shoulder pain. : if he keeps the weight close to his body, but if the weight is slightly away from his torso he cannot do this yet. LTG Duration 12 weeks One Impairment ROM Short Term Goal (STG) Flynn will improve his shoulder flexion (active) to 160 degrees. STG Duration MET Assessment Summary Assessment Pt had less overall discomfort today. Did tolerate lifting 20# (with both arms) to mid abdomen height repetitively. Will need to progress this as well as continued overhead strengthening pt currently has pain with flexion at 90-100 degrees but we have been working both above and below these levels. Physical Therapy Plan Frequency and Duration Frequency of Treatment 2x/Week Duration of Treatment 8 weeks Plan of Care Start Date 06/19/21 Plan of Care End Date 08/14/21 Therapeutic Interventions Therapeutic Interventions Aquatic Therapy,Home Exercise Program,Joint Mobilizations, Manual Therapy,Neuromuscular Re-education,Self-Care/Home Management,Therapeutic Activities,Therapeutic Exercises Modalities Cold Pack/Ice Massage,Electric Stimulation,Hot Packs Next Visit Focus/Plan Next Note Type Treatment Note Next Visit Plan Progress strengthening both close to body and above shoulder height. Plan of Care Dates Plan of Care Start Date 06/19/21 Plan of Care End Date 08/14/21 Electronically Signed by: Jaz Claire, PT 06/26/21 0991 Please Sign and Return: I have reviewed this Plan of Care and certify that the skilled therapy services above are required to meet the patient?s needs. Physician Signature Date Printed Name and Credentials Clinical Instructor Signature Printed Name and Credentials
--- NOTE | 2021-06-26 09:46 | PT.OTN ---
Current Diagnoses Impingement syndrome of right shoulder (06/26/21) Strain of muscle(s) and tendon(s) of the rotator cuff of right shoulder, subsequent encounter (06/26/21) Physical Therapy Treatment Note PT-OP-A Visit Information Start: 10/06/20 07:42 Freq: Status: Active Protocol: Document 06/26/21 09:08 SP (Rec: 06/26/21 09:49 SP [id number]) Out-Patient Physical Therapy Visit Information Visit Information Visit Type Treatment Note Visit Start Time 09:08 Visit Stop Time 09:46 Total Visit Minutes 38 Visit Number 46 Number of SERVICE CONTROL OPERATOR Visits 1 Evaluation Information Evaluation Date 02/09/21 Precautions Precautions 05/14/21: spoke PA today: lifting allowed 2lb as much as wants, 5lb every so often but no > 10lb. Given at eval: See protocol biceps tenodesis, labral repair and clavicle excision on 01/22. note protocol states to wear sling for 4 weeks and allows elbow ROM but pt notes that he was told by surgeon to wear sling for 6 weeks and not to actively use elbow as he had more surgery that what was expected. 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 Had a MRI at [facility], Per pt report showed bicep tendon tear and labrum tear per pt report. Considering surgery. Does have ankylosing spondylitis. Not currently working because has a 10# lifting restriction and they don' t have work that can accomodate that. R shoulder stiffness currently. Difficulty sleeping. 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 Treatment Goals Patient/Caregiver Goals Reduce R shoulder pain returnt to work. Prior Functional Status Baseline Function- ADL's Independent Baseline Function- Mobility Independent Current Functional Impairments (Reported) Functional Limitations- ADL's Difficult lifting arm, lifting objects even of light weight (groceries) Personal Factors Other Personal Factors That May Effect Ankylosing spondylitis Therapy/Recovery PT-OP-C Subjective Start: 10/06/20 07:42 Freq: Status: Active Protocol: Document 06/26/21 09:08 SP (Rec: 06/26/21 09:49 SP [id number]) OP-PT Subjective Patient Comments Patient Comments Pt reported did notice any problems after last tx, think did well. Pt states getting aching in R bicep lately, not sure what that's all about. Pt states sleeps in small chunks 1am -5am last night in beverley chair recliner good spinal support with LE supported on foot rest. Unable to get to sleep in bed. Pt states can't wash R lateral/ posterior shld, uses shower stick to assist back as well. Patient Reported Progress Improving PT-OP-F Manual Assessment Start: 10/06/20 07:42 Freq: Status: Active Protocol: Document 10/06/20 09:00 AMB (Rec: 10/07/20 08:58 AMB [email or web address]) Manual Assessments Other Manual Assessments Other Manual Assessments Tenderness at acromion, attachment of long head of biceps, and throughout scapular muscles and upper traps. PT-OP-J Posture/Palpation/Skin Start: 10/06/20 07:42 Freq: Status: Active Protocol: Document 10/06/20 09:00 AMB (Rec: 10/07/20 08:58 AMB [id number]) Posture Evaluation Comments Posture Comments Flat lumbar and thoracic spine PT-OP-K Range of Motion Start: 10/06/20 07:42 Freq: Status: Active Protocol: Document 04/30/21 08:32 AMB (Rec: 04/30/21 08:38 AMB [id number]) Shoulder Goniometric Range of Motion Shoulder Right Active Flexion 165 Abduction 165 Horizontal Adduction 15 Internal Rotation Behind Back (text) L1 Comments C7 behind neck PT-OP-L Special Tests Start: 10/06/20 07:42 Freq: Status: Active Protocol: Document 02/09/21 16:06 AMB (Rec: 02/09/21 16:06 AMB [email or web address]) Special Tests Shoulder Special Tests Neer Impingement Comments not performed due to precautions [place] Impingement Comments not performed due to precautions PT-OP-M Strength Start: 10/06/20 07:42 Freq: Status: Active Protocol: Document 04/30/21 08:28 AMB (Rec: 04/30/21 08:32 AMB [id number]) Shoulder Strength Shoulder Manual Muscle Testing Right Flexion 4+ Good+ Abduction (C5) 4- Good- External Rotation 4- Good- Internal Rotation 4+ Good+ PT-OP-Q Treatments Start: 10/06/20 07:42 Freq: Status: Active Protocol: Document 06/26/21 09:08 SP (Rec: 06/26/21 09:49 SP [id number]) Cardio Equipment Upper Body Ergometer (UBE) Duration (Minutes) 6 RPM 75 Seat Position 12 Height 3 Other 32 RPMs, cued increase as tolerated, 189 total cycles Therapeutic Exercises Standing Exercises 11 Standing Exercise Name box lift from floor to mid abdomen Resistance 10#DB> 20# ( 2 DBs) Reps/Minutes X5 10#, 20# x10 reps Comments good body squat mechanics- bicep 10 Standing Exercise Name abduction -t band with elbow bent to 90d, neutral rotation Equipment Used #3 t band Reps/Minutes 2x10 Comments to 80 deg abduction to stay within pain free fatigue, higher feels pain upright row to chest level Standing Exercise Name double arm Side right Resistance single 10# DB Reps/Minutes x10 Comments good form, R UE elbow slight below shld height, L at shld height tricep stretch Standing Exercise Name slide elbow up Side bilateral Equipment Used at wall corner Reps/Minutes 30s x2 Comments states ok stretch body blade Standing Exercise Name punch down, front, OH Side right Resistance large Reps/Minutes 30s each direction Comments pain free, just tiring, can feel OH but not pain posterior capsule stretch/ HADD Standing Exercise Name Reviewed- states limited across body feels discomfort bicep/ post shld Side right Reps/Minutes 20 s x2 Comments cued posture, tolerant painfree range, not able get R hand over L shld R shld IR Standing Exercise Name IR/ER Side right Resistance #4 IR, #2ER Reps/Minutes 2x10 each Comments just tiring, painfree Wall Walking into flexion Standing Exercise Name Ys off wall Side bilateral Resistance Tb #1 Reps/Minutes 2x10 Comments 180 deg, good form- cued TA awareness spinal alignment Median and ulnar nerve glide Standing Exercise Name ulnar nerve glide Side right Reps/Minutes x5 reps Comments little reduction in tingling in 4-5th MCPs punch OH flexion & ABD Standing Exercise Name Punch OH Side right Resistance #5 DB > DB Equipment Used mirror for improved self corrections Reps/Minutes 5 reps then stopped due to pain Comments slightly forward R shld 2 Standing Exercise Name t band ext Resistance #4 tband Reps/Minutes 2x10 Manual Therapy Treatment Soft Tissue Mobilization R bicep Mobilization Type Strumming,Sustained Pressure Intensity/Depth Moderate Body Position Standing Comments little less tension post box lifts, but tingling into R 4- 5thMCPs PT-OP-R Modalities Start: 10/06/20 07:42 Freq: Status: Active Protocol: Document 03/16/21 15:00 ER (Rec: 03/16/21 15:58 ER [id number]) Hot Pack/Cold Pack Treatment cryocuff Patient Position Sitting Patient Tolerance Good Comments Good feedback response. PT-OP-T Assessment and Plan Start: 10/06/20 07:42 Freq: Status: Active Protocol: Document 06/26/21 09:08 SP (Rec: 06/26/21 09:49 SP [id number]) Physical Therapy Assessment Goals Three Impairment Pain Short Term Goal (STG) Flynn will improve his shoulder strength and ROM so that he can wash his back without shoulder pain. 06/15: Progress made: IR ROM improving, not yet equal to other side, but significantly improved, pt continueds to note stiffness, ROM is really WFL but not equal to other side. STG Duration 6 weeks Penitentiary Goal (LTG) Flynn will lift his arm over head without pain so that he can return to work without shoulder pain. 06/15: NOT MET YET- pt can lift his arm overhead but cannot lift more than 4-5# without pain, and has difficulty lifting any weight repetetively overhead. LTG Duration 12 weeks Two Impairment Strength Short Term Goal (STG) Flynn will improve his R shoulder strength to 4/5 in all planes. 06/15: Progress made: mild weakness in external rotation and abduction remain. STG Duration 6 weeks Brigadier Goal (LTG) Flynn will lift 10# to shoulder height without an increase in shoulder pain. : if he keeps the weight close to his body, but if the weight is slightly away from his torso he cannot do this yet. LTG Duration 12 weeks One Impairment ROM Short Term Goal (STG) Flynn will improve his shoulder flexion (active) to 160 degrees. STG Duration MET Assessment Summary Assessment Pt having bicep low level pain during lifting close to body abdomen height, and cross body stretching today, little less post manual. Able to progress OH Ys with light resistance. Physical Therapy Plan Frequency and Duration Frequency of Treatment 2x/Week Duration of Treatment 8 weeks Plan of Care Start Date 06/19/21 Plan of Care End Date 08/14/21 Therapeutic Interventions Therapeutic Interventions Aquatic Therapy,Home Exercise Program,Joint Mobilizations, Manual Therapy,Neuromuscular Re-education,Self-Care/Home Management,Therapeutic Activities,Therapeutic Exercises Modalities Cold Pack/Ice Massage,Electric Stimulation,Hot Packs Next Visit Focus/Plan Next Note Type Treatment Note Next Visit Plan Progress strengthening both close to body and above shoulder height.
--- NOTE | 2021-06-29 08:58 | PT.OTN ---
Current Diagnoses Impingement syndrome of right shoulder (06/29/21) Strain of muscle(s) and tendon(s) of the rotator cuff of right shoulder, subsequent encounter (06/29/21) Physical Therapy Treatment Note PT-OP-A Visit Information Start: 10/06/20 07:42 Freq: Status: Active Protocol: Document 06/29/21 08:24 SP (Rec: 06/29/21 09:03 SP [id number]) Out-Patient Physical Therapy Visit Information Visit Information Visit Type Treatment Note Visit Note 9 min late for appt Visit Start Time 08:24 Visit Stop Time 08:58 Total Visit Minutes 34 Visit Number 47 Number of AUTHORIZATION REPRESENTATIVE Visits 2 Evaluation Information Evaluation Date 02/09/21 Precautions Precautions 05/14/21: spoke PA today: lifting allowed 2lb as much as wants, 5lb every so often but no > 10lb. Given at eval: See protocol biceps tenodesis, labral repair and clavicle excision on 01/22. note protocol states to wear sling for 4 weeks and allows elbow ROM but pt notes that he was told by surgeon to wear sling for 6 weeks and not to actively use elbow as he had more surgery that what was expected. 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 Had a MRI at [facility], Per pt report showed bicep tendon tear and labrum tear per pt report. Considering surgery. Does have ankylosing spondylitis. Not currently working because has a 10# lifting restriction and they don' t have work that can accomodate that. R shoulder stiffness currently. Difficulty sleeping. 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 Treatment Goals Patient/Caregiver Goals Reduce R shoulder pain returnt to work. Prior Functional Status Baseline Function- ADL's Independent Baseline Function- Mobility Independent Current Functional Impairments (Reported) Functional Limitations- ADL's Difficult lifting arm, lifting objects even of light weight (groceries) Personal Factors Other Personal Factors That May Effect Ankylosing spondylitis Therapy/Recovery PT-OP-C Subjective Start: 10/06/20 07:42 Freq: Status: Active Protocol: Document 06/29/21 08:24 SP (Rec: 06/29/21 09:03 SP [id number]) OP-PT Subjective Patient Comments Patient Comments Pt states very tired, up late with family concerns and couldn't get back to sleep. PT-OP-F Manual Assessment Start: 10/06/20 07:42 Freq: Status: Active Protocol: Document 10/06/20 09:00 AMB (Rec: 10/07/20 08:58 AMB [email or web address]) Manual Assessments Other Manual Assessments Other Manual Assessments Tenderness at acromion, attachment of long head of biceps, and throughout scapular muscles and upper traps. PT-OP-J Posture/Palpation/Skin Start: 10/06/20 07:42 Freq: Status: Active Protocol: Document 10/06/20 09:00 AMB (Rec: 10/07/20 08:58 AMB [email or web address]) Posture Evaluation Comments Posture Comments Flat lumbar and thoracic spine PT-OP-K Range of Motion Start: 10/06/20 07:42 Freq: Status: Active Protocol: Document 04/30/21 08:32 AMB (Rec: 04/30/21 08:38 AMB [id number]) Shoulder Goniometric Range of Motion Shoulder Right Active Flexion 165 Abduction 165 Horizontal Adduction 15 Internal Rotation Behind Back (text) L1 Comments C7 behind neck PT-OP-L Special Tests Start: 10/06/20 07:42 Freq: Status: Active Protocol: Document 02/09/21 16:06 AMB (Rec: 02/09/21 16:06 AMB [email or web address]) Special Tests Shoulder Special Tests Neer Impingement Comments not performed due to precautions [place] Impingement Comments not performed due to precautions PT-OP-M Strength Start: 10/06/20 07:42 Freq: Status: Active Protocol: Document 04/30/21 08:28 AMB (Rec: 04/30/21 08:32 AMB [id number]) Shoulder Strength Shoulder Manual Muscle Testing Right Flexion 4+ Good+ Abduction (C5) 4- Good- External Rotation 4- Good- Internal Rotation 4+ Good+ PT-OP-Q Treatments Start: 10/06/20 07:42 Freq: Status: Active Protocol: Document 06/29/21 08:24 SP (Rec: 06/29/21 09:03 SP [id number]) Cardio Equipment Upper Body Ergometer (UBE) Duration (Minutes) 4 RPM 70 Seat Position 13 Height 3 Other 38 RPMs, cued increase as tolerated, 173 total cycles Gym Equipment Cable Column (Body Solid) shld ext Details good scap positioning Resistance 10# B cable Reps/Time cued elbow straight- painfree Therapeutic Exercises Standing Exercises bicep curl Side right Resistance 10# DB Reps/Minutes x10 Comments painfree fatigued, not sure want to do more with elbow. 11 Standing Exercise Name box lift from floor to mid abdomen Resistance 20# (2-10# DBs) Reps/Minutes 2x10 reps- 30 stand rest between sets Comments good body squat mechanics- bicep upright row to chest level Standing Exercise Name double arm Side right Resistance single 10# DB Reps/Minutes x10 Comments good form, R UE elbow slight below shld height, L at shld height tricep stretch Standing Exercise Name slide elbow up Side bilateral Equipment Used at wall corner Reps/Minutes 30s x2 Comments states ok stretch pec stretch Side bilateral Equipment Used doorway Reps/Minutes 30s Comments good feedback stretch body blade Standing Exercise Name punch down, front, OH,IR/ER elbow bent Side right Resistance large Reps/Minutes 30s each direction Comments pain free, very tiring little achy no pain posterior capsule stretch/ HADD Side right Reps/Minutes 20 s x2 Comments good form, painfree Wall Walking into flexion Standing Exercise Name Ys off wall Side bilateral Resistance Tb #1 Reps/Minutes 2x10 Comments 180 deg, good form- cued TA awareness spinal alignment incline push up Standing Exercise Name shld taps off incline plinth Reps/Minutes x10 Comments elbow started to feel irritated so stopped FF, ABD Standing Exercise Name FF and scaption: Side right Resistance #2 DB Reps/Minutes x20 Comments 180<>120 degrees (mid range) PT-OP-R Modalities Start: 10/06/20 07:42 Freq: Status: Active Protocol: Document 03/16/21 15:00 ER (Rec: 03/16/21 15:58 ER [id number]) Hot Pack/Cold Pack Treatment cryocuff Patient Position Sitting Patient Tolerance Good Comments Good feedback response. PT-OP-T Assessment and Plan Start: 10/06/20 07:42 Freq: Status: Active Protocol: Document 06/29/21 08:24 SP (Rec: 06/29/21 09:03 SP [id number]) Physical Therapy Assessment Goals Three Impairment Pain Short Term Goal (STG) Flynn will improve his shoulder strength and ROM so that he can wash his back without shoulder pain. 06/15: Progress made: IR ROM improving, not yet equal to other side, but significantly improved, pt continueds to note stiffness, ROM is really WFL but not equal to other side. STG Duration 6 weeks Residential Goal (LTG) Flynn will lift his arm over head without pain so that he can return to work without shoulder pain. 06/15: NOT MET YET- pt can lift his arm overhead but cannot lift more than 4-5# without pain, and has difficulty lifting any weight repetetively overhead. LTG Duration 12 weeks Two Impairment Strength Short Term Goal (STG) Flynn will improve his R shoulder strength to 4/5 in all planes. 06/15: Progress made: mild weakness in external rotation and abduction remain. STG Duration 6 weeks Residential Goal (LTG) Flynn will lift 10# to shoulder height without an increase in shoulder pain. : if he keeps the weight close to his body, but if the weight is slightly away from his torso he cannot do this yet. LTG Duration 12 weeks One Impairment ROM Short Term Goal (STG) Flynn will improve his shoulder flexion (active) to 160 degrees. STG Duration MET Assessment Summary Assessment Pt worked hard, progressing in active ther ex, reported shld little achy during upright rows but went away with rest. Pt stated feeling like getting some cardio with exercises today, rest between sets for breath recovery. Elbow started to get little irritated during incline WB so stopped. Physical Therapy Plan Frequency and Duration Frequency of Treatment 2x/Week Duration of Treatment 8 weeks Plan of Care Start Date 06/19/21 Plan of Care End Date 08/14/21 Therapeutic Interventions Therapeutic Interventions Aquatic Therapy,Home Exercise Program,Joint Mobilizations, Manual Therapy,Neuromuscular Re-education,Self-Care/Home Management,Therapeutic Activities,Therapeutic Exercises Modalities Cold Pack/Ice Massage,Electric Stimulation,Hot Packs Next Visit Focus/Plan Next Note Type Treatment Note Next Visit Plan Progress strengthening both close to body and above shoulder height.
--- NOTE | 2021-07-03 08:59 | PT.OTN ---
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 Given at eval: See protocol biceps tenodesis, labral repair and clavicle excision on 01/22. note protocol states to wear sling for 4 weeks and allows elbow ROM but pt notes that he was told by surgeon to wear sling for 6 weeks and not to actively use elbow as he had more surgery that what was expected. 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 Had a MRI at [facility], Per pt report showed bicep tendon tear and labrum tear per pt report. Considering surgery. Does have ankylosing spondylitis. Not currently working because has a 10# lifting restriction and they don' t have work that can accomodate that. R shoulder stiffness currently. Difficulty sleeping. 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 Treatment Goals Patient/Caregiver Goals Reduce R shoulder pain returnt to work. Prior Functional Status Baseline Function- ADL's Independent Baseline Function- Mobility Independent Current Functional Impairments (Reported) Functional Limitations- ADL's Difficult lifting arm, lifting objects even of light weight (groceries) Personal Factors Other Personal Factors That May Effect Ankylosing spondylitis Therapy/Recovery PT-OP-C Subjective Start: 10/06/20 07:42 Freq: Status: Active Protocol: Document 07/03/21 08:19 AMB (Rec: 07/03/21 08:59 AMB [id number]) OP-PT Subjective Patient Comments Patient Comments Pt reports difficulty reaching across body, pinchy in the front. Got 2 hours of sleep last night. PT-OP-F Manual Assessment Start: 10/06/20 07:42 Freq: Status: Active Protocol: Document 10/06/20 09:00 AMB (Rec: 10/07/20 08:58 AMB [id number]) Manual Assessments Other Manual Assessments Other Manual Assessments Tenderness at acromion, attachment of long head of biceps, and throughout scapular muscles and upper traps. PT-OP-J Posture/Palpation/Skin Start: 10/06/20 07:42 Freq: Status: Active Protocol: Document 10/06/20 09:00 AMB (Rec: 10/07/20 08:58 AMB [id number]) Posture Evaluation Comments Posture Comments Flat lumbar and thoracic spine PT-OP-K Range of Motion Start: 10/06/20 07:42 Freq: Status: Active Protocol: Document 04/30/21 08:32 AMB (Rec: 04/30/21 08:38 AMB [id number]) Shoulder Goniometric Range of Motion Shoulder Right Active Flexion 165 Abduction 165 Horizontal Adduction 15 Internal Rotation Behind Back (text) L1 Comments C7 behind neck PT-OP-L Special Tests Start: 10/06/20 07:42 Freq: Status: Active Protocol: Document 02/09/21 16:06 AMB (Rec: 02/09/21 16:06 AMB [email or web address]) Special Tests Shoulder Special Tests Neer Impingement Comments not performed due to precautions [place] Impingement Comments not performed due to precautions PT-OP-M Strength Start: 10/06/20 07:42 Freq: Status: Active Protocol: Document 04/30/21 08:28 AMB (Rec: 04/30/21 08:32 AMB [id number]) Shoulder Strength Shoulder Manual Muscle Testing Right Flexion 4+ Good+ Abduction (C5) 4- Good- External Rotation 4- Good- Internal Rotation 4+ Good+ PT-OP-Q Treatments Start: 10/06/20 07:42 Freq: Status: Active Protocol: Document 07/03/21 08:19 AMB (Rec: 07/03/21 08:59 AMB [id number]) Cardio Equipment Upper Body Ergometer (UBE) Duration (Minutes) 6 RPM 70 Seat Position 13 Height 3 Other 38 RPMs, cued increase as tolerated, 173 total cycles Gym Equipment Cable Column (Body Solid) shld ext Details good scap positioning Resistance 10# B cable Reps/Time cued elbow straight- painfree Therapeutic Exercises Supine Exercises horizontal adduction Resistance #2 DB Reps/Minutes 2x8 Comments not crossing over midline Sidelying Exercises ER Sidelying Exercise Name reports tiring Side right Resistance #4 DB Reps/Minutes x10 each wt Comments good form Standing Exercises bicep curl Side right Resistance 10# DB Reps/Minutes x10 Comments painfree fatigued, not sure want to do more with elbow. 11 Standing Exercise Name box lift from floor to mid abdomen Resistance 20# (2-10# DBs) Reps/Minutes 2x10 reps- 30 stand rest between sets Comments good body squat mechanics- bicep tricep stretch Standing Exercise Name slide elbow up Side bilateral Equipment Used at wall corner Reps/Minutes 30s x2 Comments states ok stretch body blade Standing Exercise Name punch down, front, OH,IR/ER elbow bent Side right Resistance large Reps/Minutes 30s each direction Comments pain free posterior capsule stretch/ HADD Side right Reps/Minutes 20 s x2 Comments good form, painfree Wall Walking into flexion Standing Exercise Name Ys off wall Side bilateral Resistance Tb #1 Reps/Minutes 2x10 Comments 180 deg, good form- cued TA awareness spinal alignment FF, ABD Standing Exercise Name FF and scaption: Side right Resistance #2 DB Reps/Minutes x20 Comments 180<>120 degrees (mid range) PT-OP-R Modalities Start: 10/06/20 07:42 Freq: Status: Active Protocol: Document 03/16/21 15:00 ER (Rec: 03/16/21 15:58 ER [id number]) Hot Pack/Cold Pack Treatment cryocuff Patient Position Sitting Patient Tolerance Good Comments Good feedback response. PT-OP-T Assessment and Plan Start: 10/06/20 07:42 Freq: Status: Active Protocol: Document 07/03/21 08:19 AMB (Rec: 07/03/21 08:59 AMB [id number]) Physical Therapy Assessment Goals Three Impairment Pain Short Term Goal (STG) Flynn will improve his shoulder strength and ROM so that he can wash his back without shoulder pain. 06/15: Progress made: IR ROM improving, not yet equal to other side, but significantly improved, pt continueds to note stiffness, ROM is really WFL but not equal to other side. STG Duration 6 weeks Snf Goal (LTG) Flynn will lift his arm over head without pain so that he can return to work without shoulder pain. 06/15: NOT MET YET- pt can lift his arm overhead but cannot lift more than 4-5# without pain, and has difficulty lifting any weight repetetively overhead. LTG Duration 12 weeks Two Impairment Strength Short Term Goal (STG) Flynn will improve his R shoulder strength to 4/5 in all planes. 06/15: Progress made: mild weakness in external rotation and abduction remain. STG Duration 6 weeks Snf Goal (LTG) Flynn will lift 10# to shoulder height without an increase in shoulder pain. : if he keeps the weight close to his body, but if the weight is slightly away from his torso he cannot do this yet. LTG Duration 12 weeks One Impairment ROM Short Term Goal (STG) Flynn will improve his shoulder flexion (active) to 160 degrees. STG Duration MET Assessment Summary Assessment Shoulder hurts at times when doing exercises, but pain not lingering at rest. Pt tolerating lifting away from body more, but weights continue to be light in comparison to work duties, following lifting precautions from surgeon and pt tolerance. Physical Therapy Plan Next Visit Focus/Plan Next Note Type Treatment Note Next Visit Plan Progress strengthening both close to body and above shoulder height.
--- NOTE | 2021-07-06 11:17 | PT.OTN ---
Current Diagnoses Impingement syndrome of right shoulder (07/06/21) Strain of muscle(s) and tendon(s) of the rotator cuff of right shoulder, subsequent encounter (07/06/21) Physical Therapy Treatment Note PT-OP-A Visit Information Start: 10/06/20 07:42 Freq: Status: Active Protocol: Document 07/06/21 10:37 SP (Rec: 07/06/21 11:38 SP [id number]) Out-Patient Physical Therapy Visit Information Visit Information Visit Type Treatment Note Visit Start Time 10:37 Visit Stop Time 11:17 Total Visit Minutes 40 Visit Number 49 Number of WELD ENGINEER Visits 1 Evaluation Information Evaluation Date 02/09/21 Precautions Precautions 05/14/21: spoke PA today: lifting allowed 2lb as much as wants, 5lb every so often but no > 10lb. Given at eval: See protocol biceps tenodesis, labral repair and clavicle excision on 01/22. note protocol states to wear sling for 4 weeks and allows elbow ROM but pt notes that he was told by surgeon to wear sling for 6 weeks and not to actively use elbow as he had more surgery that what was expected. 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 Had a MRI at [facility], Per pt report showed bicep tendon tear and labrum tear per pt report. Considering surgery. Does have ankylosing spondylitis. Not currently working because has a 10# lifting restriction and they don' t have work that can accomodate that. R shoulder stiffness currently. Difficulty sleeping. 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 Treatment Goals Patient/Caregiver Goals Reduce R shoulder pain returnt to work. Prior Functional Status Baseline Function- ADL's Independent Baseline Function- Mobility Independent Current Functional Impairments (Reported) Functional Limitations- ADL's Difficult lifting arm, lifting objects even of light weight (groceries) Personal Factors Other Personal Factors That May Effect Ankylosing spondylitis Therapy/Recovery PT-OP-C Subjective Start: 10/06/20 07:42 Freq: Status: Active Protocol: Document 07/06/21 10:37 SP (Rec: 07/06/21 11:38 SP [id number]) OP-PT Subjective Patient Comments Patient Comments Pt reported R forearm flexors were really sore for 3 days, down to the bone after last tx , finally better yesterday. Pt stated thinks to much bicep work last tx and different office sweeper positioning than used to during cable vs TB. Pt stated not as tired, got better sleep , slept 7-11 then 2-6 hrs, finally ordered new bed so hopefully will only get better . PT-OP-F Manual Assessment Start: 10/06/20 07:42 Freq: Status: Active Protocol: Document 10/06/20 09:00 AMB (Rec: 10/07/20 08:58 AMB [email or web address]) Manual Assessments Other Manual Assessments Other Manual Assessments Tenderness at acromion, attachment of long head of biceps, and throughout scapular muscles and upper traps. PT-OP-J Posture/Palpation/Skin Start: 10/06/20 07:42 Freq: Status: Active Protocol: Document 10/06/20 09:00 AMB (Rec: 10/07/20 08:58 AMB [id number]) Posture Evaluation Comments Posture Comments Flat lumbar and thoracic spine PT-OP-K Range of Motion Start: 10/06/20 07:42 Freq: Status: Active Protocol: Document 04/30/21 08:32 AMB (Rec: 04/30/21 08:38 AMB [id number]) Shoulder Goniometric Range of Motion Shoulder Right Active Flexion 165 Abduction 165 Horizontal Adduction 15 Internal Rotation Behind Back (text) L1 Comments C7 behind neck PT-OP-L Special Tests Start: 10/06/20 07:42 Freq: Status: Active Protocol: Document 02/09/21 16:06 AMB (Rec: 02/09/21 16:06 AMB [email or web address]) Special Tests Shoulder Special Tests Neer Impingement Comments not performed due to precautions [place] Impingement Comments not performed due to precautions PT-OP-M Strength Start: 10/06/20 07:42 Freq: Status: Active Protocol: Document 04/30/21 08:28 AMB (Rec: 04/30/21 08:32 AMB [id number]) Shoulder Strength Shoulder Manual Muscle Testing Right Flexion 4+ Good+ Abduction (C5) 4- Good- External Rotation 4- Good- Internal Rotation 4+ Good+ PT-OP-Q Treatments Start: 10/06/20 07:42 Freq: Status: Active Protocol: Document 07/06/21 10:37 SP (Rec: 07/06/21 11:38 SP [id number]) Therapeutic Exercises Standing Exercises 11 Standing Exercise Name box lift from floor to mid abdomen Resistance 20# (2-10# DBs) Reps/Minutes 2x10 reps- 30 stand rest between sets Comments good body squat mechanics- bicep upright row to chest level Standing Exercise Name double arm Side right Resistance single 10# DB Reps/Minutes x10 Comments good form, R UE elbow slight below shld height, L at shld height body blade Standing Exercise Name punch down, front, OH,IR/ER elbow bent Side right Resistance large Reps/Minutes 30s each direction Comments pain free R shld IR Standing Exercise Name IR/ER Side right Resistance #4 IR, #3 ER Reps/Minutes 2x10 each Comments just tiring little shaky, painfree Wall Walking into flexion Standing Exercise Name Ys off wall Side bilateral Resistance Tb #2 Reps/Minutes 2x10 Comments WNL, good form- cued TA awareness spinal alignment FF, ABD Standing Exercise Name FF and scaption: Side right Resistance #2 TB, #2 DB Reps/Minutes x10 each TB full range challenge last 10 deg, x4 DB Comments 180<>120 degrees (mid range, slow) punch OH flexion & ABD Standing Exercise Name Punch OH Side right Resistance #5 DB x8> #6 DB x10 Equipment Used mirror for improved self corrections Reps/Minutes muscle tiring Comments cued good shld trunk alighnment Manual Therapy Treatment Soft Tissue Mobilization 3 Body Location R forearm flexors/ extensors, palmar fascia MFR and manual stretching Mobilization Type Myofascial Release,Strumming Intensity/Depth Moderate Body Position Hooklying Comments manual STMs and stretching- good feedback response to pressure and decrease tightness post. feels alot better, not as tight when bend my wrist both ways. When stood instructed self flex/ ext stretching and WB R hand on table and wrist ext flexor stretch- good response. PT-OP-R Modalities Start: 10/06/20 07:42 Freq: Status: Active Protocol: Document 03/16/21 15:00 ER (Rec: 03/16/21 15:58 ER [id number]) Hot Pack/Cold Pack Treatment cryocuff Patient Position Sitting Patient Tolerance Good Comments Good feedback response. PT-OP-T Assessment and Plan Start: 10/06/20 07:42 Freq: Status: Active Protocol: Document 07/06/21 10:37 SP (Rec: 07/06/21 11:38 SP [id number]) Physical Therapy Assessment Goals Three Impairment Pain Short Term Goal (STG) Flynn will improve his shoulder strength and ROM so that he can wash his back without shoulder pain. 06/15: Progress made: IR ROM improving, not yet equal to other side, but significantly improved, pt continueds to note stiffness, ROM is really WFL but not equal to other side. STG Duration 6 weeks Medical Laboratory Specialist Goal (LTG) Flynn will lift his arm over head without pain so that he can return to work without shoulder pain. 06/15: NOT MET YET- pt can lift his arm overhead but cannot lift more than 4-5# without pain, and has difficulty lifting any weight repetetively overhead. LTG Duration 12 weeks Two Impairment Strength Short Term Goal (STG) Flynn will improve his R shoulder strength to 4/5 in all planes. 06/15: Progress made: mild weakness in external rotation and abduction remain. STG Duration 6 weeks Senior Living Goal (LTG) Flynn will lift 10# to shoulder height without an increase in shoulder pain. : if he keeps the weight close to his body, but if the weight is slightly away from his torso he cannot do this yet. LTG Duration 12 weeks One Impairment ROM Short Term Goal (STG) lFynn will improve his shoulder flexion (active) to 160 degrees. STG Duration MET Assessment Summary Assessment Pt reports wrist not as tight post manual, stretching, able to office sweeper DBs and TB better. Able to progress resistance OH press RUE to 6# DB but still elbow close to body before punch over head, resisted Ys off wall #2 TB reports just tiring. Physical Therapy Plan Frequency and Duration Frequency of Treatment 2x/Week Duration of Treatment 8 weeks Plan of Care Start Date 06/19/21 Plan of Care End Date 08/14/21 Therapeutic Interventions Therapeutic Interventions Aquatic Therapy,Home Exercise Program,Joint Mobilizations, Manual Therapy,Neuromuscular Re-education,Self-Care/Home Management,Therapeutic Activities,Therapeutic Exercises Modalities Cold Pack/Ice Massage,Electric Stimulation,Hot Packs Next Visit Focus/Plan Next Note Type Treatment Note Next Visit Plan Check response to progressed resistance OH. POC: Progress strengthening both close to body and above shoulder height.
--- NOTE | 2021-07-09 14:49 | PT.OTN ---
Current Diagnoses Impingement syndrome of right shoulder (07/09/21) Strain of muscle(s) and tendon(s) of the rotator cuff of right shoulder, subsequent encounter (07/09/21) Physical Therapy Treatment Note PT-OP-A Visit Information Start: 10/06/20 07:42 Freq: Status: Active Protocol: Document 07/09/21 13:00 AMB (Rec: 07/10/21 08:16 AMB [id number]) Out-Patient Physical Therapy Visit Information Visit Information Visit Type Progress Note Visit Start Time 08:00 Total Visit Minutes 45 Visit Number 50 Number of GLYCERINE PLANT OPERATOR Visits 0 PT-OP-B Current Condition Start: 10/06/20 07:42 Freq: Status: Active Protocol: Document 10/06/20 09:00 AMB (Rec: 10/06/20 09:15 AMB [id number]) Current Condition History of Current Condition Onset Date 08/15/20 Current Complaints R shoulder pain History of Current Condition 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 Had a MRI at [facility], Per pt report showed bicep tendon tear and labrum tear per pt report. Considering surgery. Does have ankylosing spondylitis. Not currently working because has a 10# lifting restriction and they don' t have work that can accomodate that. R shoulder stiffness currently. Difficulty sleeping. 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 Treatment Goals Patient/Caregiver Goals Reduce R shoulder pain returnt to work. Prior Functional Status Baseline Function- ADL's Independent Baseline Function- Mobility Independent Current Functional Impairments (Reported) Functional Limitations- ADL's Difficult lifting arm, lifting objects even of light weight (groceries) Personal Factors Other Personal Factors That May Effect Ankylosing spondylitis Therapy/Recovery PT-OP-C Subjective Start: 10/06/20 07:42 Freq: Status: Active Protocol: Document 07/09/21 13:00 AMB (Rec: 07/10/21 10:31 AMB [id number]) OP-PT Subjective Patient Comments Patient Comments Pt reports arm felt better after manual at last session. 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 PT-OP-F Manual Assessment Start: 10/06/20 07:42 Freq: Status: Active Protocol: Document 10/06/20 09:00 AMB (Rec: 10/07/20 08:58 AMB [email or web address]) Manual Assessments Other Manual Assessments Other Manual Assessments Tenderness at acromion, attachment of long head of biceps, and throughout scapular muscles and upper traps. PT-OP-J Posture/Palpation/Skin Start: 10/06/20 07:42 Freq: Status: Active Protocol: Document 10/06/20 09:00 AMB (Rec: 10/07/20 08:58 AMB [email or web address]) Posture Evaluation Comments Posture Comments Flat lumbar and thoracic spine PT-OP-K Range of Motion Start: 10/06/20 07:42 Freq: Status: Active Protocol: Document 07/09/21 13:38 AMB (Rec: 07/09/21 13:42 AMB [id number]) Shoulder Goniometric Range of Motion Shoulder Right Active Flexion 170 Abduction 180 Horizontal Adduction 40 PT-OP-L Special Tests Start: 10/06/20 07:42 Freq: Status: Active Protocol: Document 02/09/21 16:06 AMB (Rec: 02/09/21 16:06 AMB [email or web address]) Special Tests Shoulder Special Tests Neer Impingement Comments not performed due to precautions [place] Impingement Comments not performed due to precautions PT-OP-M Strength Start: 10/06/20 07:42 Freq: Status: Active Protocol: Document 07/09/21 13:38 AMB (Rec: 07/09/21 13:42 AMB [id number]) Shoulder Strength Shoulder Manual Muscle Testing Right Flexion 4+ Good+ Abduction (C5) 4 Good External Rotation 4- Good- Internal Rotation 4+ Good+ Comments ER painful PT-OP-Q Treatments Start: 10/06/20 07:42 Freq: Status: Active Protocol: Document 07/09/21 13:00 AMB (Rec: 07/10/21 10:30 AMB [id number]) Cardio Equipment Upper Body Ergometer (UBE) Duration (Minutes) 6 RPM 70 Seat Position 13 Height 3 Therapeutic Exercises Standing Exercises 11 Standing Exercise Name box lift from floor to mid abdomen Resistance 20# (2-10# DBs) Reps/Minutes 2x10 reps- 30 stand rest between sets Comments good body squat mechanics- bicep body blade Standing Exercise Name punch down, front, OH,IR/ER elbow bent Side right Resistance large Reps/Minutes 30s each direction Comments pain free R shld IR Standing Exercise Name IR/ER Side right Resistance #4 IR, #3 ER Reps/Minutes 2x10 each Comments just tiring little shaky, painfree Wall Walking into flexion Standing Exercise Name Ys off wall Side bilateral Resistance Tb #2 Reps/Minutes 2x10 Comments WNL, good form- cued TA awareness spinal alignment FF, ABD Standing Exercise Name FF and scaption: Side right Resistance #2 TB, #2 DB Reps/Minutes x10 each TB full range challenge last 10 deg, x4 DB Comments 180<>120 degrees (mid range, slow) punch OH flexion & ABD Standing Exercise Name Punch OH Side right Resistance #6 DB x10, x 5 Equipment Used mirror for improved self corrections Reps/Minutes muscle tiring Comments cued good shld trunk alighnment PT-OP-R Modalities Start: 10/06/20 07:42 Freq: Status: Active Protocol: Document 03/16/21 15:00 ER (Rec: 03/16/21 15:58 ER [id number]) Hot Pack/Cold Pack Treatment cryocuff Patient Position Sitting Patient Tolerance Good Comments Good feedback response. PT-OP-T Assessment and Plan Start: 10/06/20 07:42 Freq: Status: Active Protocol: Document 07/09/21 13:00 AMB (Rec: 07/10/21 08:16 AMB [id number]) Physical Therapy Assessment Goals Three Impairment Pain Short Term Goal (STG) Flynn will improve his shoulder strength and ROM so that he can wash his back without shoulder pain. 07/10: Pain with crossing arm across midline and reaching into a lot of IR behind back. 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 06/15: NOT MET YET- pt can lift his arm overhead but cannot lift more than 4-5# without pain, and has difficulty lifting any weight repetetively overhead. LTG Duration 12 weeks Two Impairment Strength Short Term Goal (STG) Flynn will improve his R shoulder strength to 4/5 in all planes. 07/09: ER is the only plane of motion that has not yet this goal yet. STG Duration 6 weeks [facility] Goal (LTG) Flynn will lift 10# to shoulder height without an increase in shoulder pain. : if he keeps the weight close to his body, but if the weight is slightly away from his torso he cannot do this yet. LTG Duration 12 weeks One Impairment ROM Short Term Goal (STG) Flynn will improve his shoulder flexion (active) to 160 degrees. STG Duration MET Assessment Summary Assessment Pt has shown improved ROM, still limited with horizontal adduction, but otherwise ROM is looking good. Strength is also progressing but not where it needs to be to return to work. Pt reports he needs to be able to lift 75# above shoulder height and currently he is limited to ~5# if he keeps it close to his body he can lift 20# to chest height, but lifting away from his body continues to be painful.
--- NOTE | 2021-07-17 15:25 | PT.OTN ---
Current Diagnoses Impingement syndrome of right shoulder (07/17/21) Strain of muscle(s) and tendon(s) of the rotator cuff of right shoulder, subsequent encounter (07/17/21) Physical Therapy Treatment Note PT-OP-A Visit Information Start: 10/06/20 07:42 Freq: Status: Active Protocol: Document 07/17/21 14:30 AMB (Rec: 07/17/21 15:25 AMB [id number]) Out-Patient Physical Therapy Visit Information Visit Information Visit Type Treatment Note Visit Start Time 14:30 Visit Stop Time 15:15 Total Visit Minutes 40 Visit Number 51 PT-OP-B Current Condition Start: 10/06/20 07:42 Freq: Status: Active Protocol: Document 10/06/20 09:00 AMB (Rec: 10/06/20 09:15 AMB [id number]) Current Condition History of Current Condition Onset Date 08/15/20 Current Complaints R shoulder pain History of Current Condition 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 Had a MRI at [facility], Per pt report showed bicep tendon tear and labrum tear per pt report. Considering surgery. Does have ankylosing spondylitis. Not currently working because has a 10# lifting restriction and they don' t have work that can accomodate that. R shoulder stiffness currently. Difficulty sleeping. 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 Treatment Goals Patient/Caregiver Goals Reduce R shoulder pain returnt to work. Prior Functional Status Baseline Function- ADL's Independent Baseline Function- Mobility Independent Current Functional Impairments (Reported) Functional Limitations- ADL's Difficult lifting arm, lifting objects even of light weight (groceries) Personal Factors Other Personal Factors That May Effect Ankylosing spondylitis Therapy/Recovery PT-OP-C Subjective Start: 10/06/20 07:42 Freq: Status: Active Protocol: Document 07/17/21 14:30 AMB (Rec: 07/17/21 15:25 AMB [id number]) OP-PT Subjective Patient Comments Patient Comments Mild difficulty reporting lifting arm up to replace lightbulb PT-OP-F Manual Assessment Start: 10/06/20 07:42 Freq: Status: Active Protocol: Document 10/06/20 09:00 AMB (Rec: 10/07/20 08:58 AMB [id number]) Manual Assessments Other Manual Assessments Other Manual Assessments Tenderness at acromion, attachment of long head of biceps, and throughout scapular muscles and upper traps. PT-OP-J Posture/Palpation/Skin Start: 10/06/20 07:42 Freq: Status: Active Protocol: Document 10/06/20 09:00 AMB (Rec: 10/07/20 08:58 AMB [id number]) Posture Evaluation Comments Posture Comments Flat lumbar and thoracic spine PT-OP-K Range of Motion Start: 10/06/20 07:42 Freq: Status: Active Protocol: Document 07/09/21 13:38 AMB (Rec: 07/09/21 13:42 AMB [id number]) Shoulder Goniometric Range of Motion Shoulder Right Active Flexion 170 Abduction 180 Horizontal Adduction 40 PT-OP-L Special Tests Start: 10/06/20 07:42 Freq: Status: Active Protocol: Document 02/09/21 16:06 AMB (Rec: 02/09/21 16:06 AMB [email or web address]) Special Tests Shoulder Special Tests Neer Impingement Comments not performed due to precautions [place] Impingement Comments not performed due to precautions PT-OP-M Strength Start: 10/06/20 07:42 Freq: Status: Active Protocol: Document 07/09/21 13:38 AMB (Rec: 07/09/21 13:42 AMB [id number]) Shoulder Strength Shoulder Manual Muscle Testing Right Flexion 4+ Good+ Abduction (C5) 4 Good External Rotation 4- Good- Internal Rotation 4+ Good+ Comments ER painful PT-OP-Q Treatments Start: 10/06/20 07:42 Freq: Status: Active Protocol: Document 07/17/21 14:30 AMB (Rec: 07/17/21 15:25 AMB [id number]) Therapeutic Exercises Standing Exercises 11 Standing Exercise Name box lift from floor to mid abdomen Resistance 20# (2-10# DBs) Reps/Minutes 2x10 reps- 30 stand rest between sets Comments good body squat mechanics- bicep upright row to chest level Standing Exercise Name double arm Side right Resistance single 10# DB Reps/Minutes x10 Comments good form, R UE elbow slight below shld height, L at shld height body blade Standing Exercise Name punch down, front, OH,IR/ER elbow bent Side right Resistance large Reps/Minutes 30s each direction Comments pain free Wall Walking into flexion Standing Exercise Name Ys off wall Side bilateral Resistance Tb #2 Reps/Minutes 2x10 Comments WNL, good form- cued TA awareness spinal alignment FF, ABD Standing Exercise Name FF and scaption: Side right Resistance #2>#3 DB Reps/Minutes 2x10 Comments 180 degrees punch OH flexion & ABD Standing Exercise Name Punch OH Side right Resistance #6 DB x10, x 5 Equipment Used mirror for improved self corrections Reps/Minutes muscle tiring Comments cued good shld trunk alighnment PT-OP-R Modalities Start: 10/06/20 07:42 Freq: Status: Active Protocol: Document 03/16/21 15:00 ER (Rec: 03/16/21 15:58 ER [id number]) Hot Pack/Cold Pack Treatment cryocuff Patient Position Sitting Patient Tolerance Good Comments Good feedback response. PT-OP-T Assessment and Plan Start: 10/06/20 07:42 Freq: Status: Active Protocol: Document 07/17/21 14:30 AMB (Rec: 07/17/21 15:25 AMB [id number]) Physical Therapy Assessment Goals Three Impairment Pain Short Term Goal (STG) Flynn will improve his shoulder strength and ROM so that he can wash his back without shoulder pain. 07/10: Pain with crossing arm across midline and reaching into a lot of IR behind back. STG Duration progress made Program Attendant Goal (LTG) Flynn will lift his arm over head without pain so that he can return to work without shoulder pain. 06/15: NOT MET YET- pt can lift his arm overhead but cannot lift more than 4-5# without pain, and has difficulty lifting any weight repetetively overhead. LTG Duration 12 weeks Two Impairment Strength Short Term Goal (STG) Flynn will improve his R shoulder strength to 4/5 in all planes. 07/09: ER is the only plane of motion that has not yet this goal yet. STG Duration 6 weeks [facility] Goal (LTG) Flynn will lift 10# to shoulder height without an increase in shoulder pain. : if he keeps the weight close to his body, but if the weight is slightly away from his torso he cannot do this yet. LTG Duration 12 weeks One Impairment ROM Short Term Goal (STG) Flynn will improve his shoulder flexion (active) to 160 degrees. STG Duration MET Assessment Summary Assessment Pt is able to tolerate flexion and scaption through full ROM , increasing resistance to 3# today. Encouraged pt to get home weights as he is continuing to use theraband at home for HEP. Physical Therapy Plan Frequency and Duration Frequency of Treatment 2x/Week Duration of Treatment 8 weeks Plan of Care Start Date 06/19/21 Plan of Care End Date 08/14/21 Therapeutic Interventions Therapeutic Interventions Aquatic Therapy,Home Exercise Program,Joint Mobilizations, Manual Therapy,Neuromuscular Re-education,Self-Care/Home Management,Therapeutic Activities,Therapeutic Exercises Modalities Cold Pack/Ice Massage,Electric Stimulation,Hot Packs Next Visit Focus/Plan Next Note Type Treatment Note Next Visit Plan Check response to progressed resistance OH. POC: Progress strengthening both close to body and above shoulder height.
--- NOTE | 2021-07-20 07:45 | PT-OP ANOTE ---
Pt did not show for today's 0730 appt, when called pt stated forgot and aware of policy of no show fee. Pt agreeable to come in tomorrow 07/21 at 1430 to make up today's appt. 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
--- NOTE | 2021-07-21 15:15 | PT.OTN ---
Current Diagnoses Impingement syndrome of right shoulder (07/21/21) Strain of muscle(s) and tendon(s) of the rotator cuff of right shoulder, subsequent encounter (07/21/21) Physical Therapy Treatment Note PT-OP-A Visit Information Start: 10/06/20 07:42 Freq: Status: Active Protocol: Document 07/21/21 14:35 SP (Rec: 07/21/21 15:34 SP [id number]) Out-Patient Physical Therapy Visit Information Visit Information Visit Type Treatment Note Visit Start Time 14:35 Visit Stop Time 15:15 Total Visit Minutes 40 Visit Number 52 Number of EXECUTIVE ADMIN Visits 1 Evaluation Information Evaluation Date 02/09/21 Precautions Precautions 05/14/21: spoke PA today: lifting allowed 2lb as much as wants, 5lb every so often but no > 10lb. Given at eval: See protocol biceps tenodesis, labral repair and clavicle excision on 01/22. note protocol states to wear sling for 4 weeks and allows elbow ROM but pt notes that he was told by surgeon to wear sling for 6 weeks and not to actively use elbow as he had more surgery that what was expected. 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 Had a MRI at [facility], Per pt report showed bicep tendon tear and labrum tear per pt report. Considering surgery. Does have ankylosing spondylitis. Not currently working because has a 10# lifting restriction and they don' t have work that can accomodate that. R shoulder stiffness currently. Difficulty sleeping. 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 Treatment Goals Patient/Caregiver Goals Reduce R shoulder pain returnt to work. Prior Functional Status Baseline Function- ADL's Independent Baseline Function- Mobility Independent Current Functional Impairments (Reported) Functional Limitations- ADL's Difficult lifting arm, lifting objects even of light weight (groceries) Personal Factors Other Personal Factors That May Effect Ankylosing spondylitis Therapy/Recovery PT-OP-C Subjective Start: 10/06/20 07:42 Freq: Status: Active Protocol: Document 07/21/21 14:35 SP (Rec: 07/21/21 15:34 SP [id number]) OP-PT Subjective Patient Comments Patient Comments Pt stated trying to adjust to new bed, memory more stiff foam. Found sleeping on R side caused more pain and still recovering, so can't yet. PT-OP-F Manual Assessment Start: 10/06/20 07:42 Freq: Status: Active Protocol: Document 10/06/20 09:00 AMB (Rec: 10/07/20 08:58 AMB [email or web address]) Manual Assessments Other Manual Assessments Other Manual Assessments Tenderness at acromion, attachment of long head of biceps, and throughout scapular muscles and upper traps. PT-OP-J Posture/Palpation/Skin Start: 10/06/20 07:42 Freq: Status: Active Protocol: Document 10/06/20 09:00 AMB (Rec: 10/07/20 08:58 AMB [email or web address]) Posture Evaluation Comments Posture Comments Flat lumbar and thoracic spine PT-OP-K Range of Motion Start: 10/06/20 07:42 Freq: Status: Active Protocol: Document 07/09/21 13:38 AMB (Rec: 07/09/21 13:42 AMB [id number]) Shoulder Goniometric Range of Motion Shoulder Right Active Flexion 170 Abduction 180 Horizontal Adduction 40 PT-OP-L Special Tests Start: 10/06/20 07:42 Freq: Status: Active Protocol: Document 02/09/21 16:06 AMB (Rec: 02/09/21 16:06 AMB [email or web address]) Special Tests Shoulder Special Tests Neer Impingement Comments not performed due to precautions [place] Impingement Comments not performed due to precautions PT-OP-M Strength Start: 10/06/20 07:42 Freq: Status: Active Protocol: Document 07/09/21 13:38 AMB (Rec: 07/09/21 13:42 AMB [id number]) Shoulder Strength Shoulder Manual Muscle Testing Right Flexion 4+ Good+ Abduction (C5) 4 Good External Rotation 4- Good- Internal Rotation 4+ Good+ Comments ER painful PT-OP-Q Treatments Start: 10/06/20 07:42 Freq: Status: Active Protocol: Document 07/21/21 14:35 SP (Rec: 07/21/21 15:34 SP [id number]) Cardio Equipment Upper Body Ergometer (UBE) Duration (Minutes) 6 RPM 50 Seat Position 13 Height 3.5 Therapeutic Exercises Prone Exercises Tball walk outs Equipment Used 65 cm tball Reps/Minutes 3-4 steps out/ in (thighs on t ball) Comments cued core engagement for spinal/LB support, eccentric landing Sitting Exercises lat pull down Resistance #40 Equipment Used cables Reps/Minutes x10 Comments cued scap stabilization in depression during eccentric return superiorly. Standing Exercises squat row cable Standing Exercise Name new Resistance #20 Reps/Minutes x10 reps Comments good form, core and trunk alignment 11 Standing Exercise Name box lift from floor to mid abdomen Resistance 1-25# older DB in box Reps/Minutes x10 reps to chest height Comments good body squat mechanics, core fac awareness upright row to chest level Standing Exercise Name single arm Side right Resistance single 15# DB (single old plates) Reps/Minutes x8 reps Comments good form, stated got tight over distal lat/ post GH jt- stopped tricep stretch Standing Exercise Name slide elbow up Side right Equipment Used at wall corner Reps/Minutes 30s x2 Comments states ok stretch pec stretch Standing Exercise Name single Side right Equipment Used beam Reps/Minutes 30s Comments good feedback stretch body blade Standing Exercise Name punch down, front, OH, IR/ER elbow bent Side right Resistance large Reps/Minutes 60s each direction Comments pain free self STMs Standing Exercise Name infraspinatus, inter scap, UT- discussed do at home for lessen tightness Side right Equipment Used racquetball in sock roll on wall using INESSA [place] at side Reps/Minutes 1 min Comments good feedback response is helpful at home FF, ABD Standing Exercise Name FF and scaption Side right Resistance #3 DB Reps/Minutes 2x10 Comments 160 deg x8 reps, improved 180 degrees post manual punch OH flexion & ABD Standing Exercise Name Punch OH Side right Resistance #6 DB 2x10 Reps/Minutes muscle tiring Comments cued good shld trunk alighnment Manual Therapy Treatment Soft Tissue Mobilization Shoulder Body Location R UT, infraspinatus, deltoid distal lat, Teres Minor, subscap, distal yoanna Mobilization Type Strumming Intensity/Depth Moderate Body Position Sidelying Comments side and supine, good response , decreased tightness. Joint Mobilizations 2 Joint R GH Jt gentle Direction posterior, inferior Grade I Body Position Hooklying Comments good feedback tolerance, relaxing Able increase FF ROM OH press post manual Self-Care/Home Management Treatment Education Patient Education Body Mechanics,Home Exercise Program,Joint Protection,Pain Management,Posture Other Education EXECUTIVE ADMIN reviewed side sleeping with folded towel small pillow under R lateral ribcage to decrease wt on R arm if finds self R side sleeping for comfort. PT-OP-R Modalities Start: 10/06/20 07:42 Freq: Status: Active Protocol: Document 03/16/21 15:00 ER (Rec: 03/16/21 15:58 ER [id number]) Hot Pack/Cold Pack Treatment cryocuff Patient Position Sitting Patient Tolerance Good Comments Good feedback response. PT-OP-T Assessment and Plan Start: 10/06/20 07:42 Freq: Status: Active Protocol: Document 07/21/21 14:35 SP (Rec: 07/21/21 15:34 SP [id number]) Physical Therapy Assessment Goals Three Impairment Pain Short Term Goal (STG) Flynn will improve his shoulder strength and ROM so that he can wash his back without shoulder pain. 07/10: Pain with crossing arm across midline and reaching into a lot of IR behind back. STG Duration progress made Group Home Goal (LTG) Flynn will lift his arm over head without pain so that he can return to work without shoulder pain. 06/15: NOT MET YET- pt can lift his arm overhead but cannot lift more than 4-5# without pain, and has difficulty lifting any weight repetetively overhead. LTG Duration 12 weeks Two Impairment Strength Short Term Goal (STG) Flynn will improve his R shoulder strength to 4/5 in all planes. 07/09: ER is the only plane of motion that has not yet this goal yet. STG Duration 6 weeks Group Home Goal (LTG) Flynn will lift 10# to shoulder height without an increase in shoulder pain. : if he keeps the weight close to his body, but if the weight is slightly away from his torso he cannot do this yet. LTG Duration 12 weeks One Impairment ROM Short Term Goal (STG) Flynn will improve his shoulder flexion (active) to 160 degrees. STG Duration MET Assessment Summary Assessment Pt decrease tightness over Teres and distal lat post manual able to complete single OH press 6# DB, unable to increase wt. Pt was able to complete initiated squat row pull to chest height and ball walk outs mid range painfree. Pt states feels better than when came in. Physical Therapy Plan Frequency and Duration Frequency of Treatment 2x/Week Duration of Treatment 8 weeks Plan of Care Start Date 06/19/21 Plan of Care End Date 08/14/21 Therapeutic Interventions Therapeutic Interventions Aquatic Therapy,Home Exercise Program,Joint Mobilizations, Manual Therapy,Neuromuscular Re-education,Self-Care/Home Management,Therapeutic Activities,Therapeutic Exercises Modalities Cold Pack/Ice Massage,Electric Stimulation,Hot Packs Next Visit Focus/Plan Next Note Type Treatment Note Next Visit Plan Check response to progressed resistance OH and box lifts, WB ball walk outs and squat rows performed last tx. POC: Progress strengthening both close to body and above shoulder height.
--- NOTE | 2021-07-23 12:08 | PT-OP ANOTE ---
Pt cancelled < 24 hrs, feeling sick.
--- NOTE | 2021-07-27 07:40 | PT-OP ANOTE ---
All appts cancelled due to no authorization.
--- NOTE | 2021-09-20 11:44 | PT.OPDS ---
Current Diagnoses Impingement syndrome of right shoulder (07/21/21) Strain of muscle(s) and tendon(s) of the rotator cuff of right shoulder, subsequent encounter (07/21/21) Visit Care Team Role Provider Type Ray Stover DO Primary Care Provider Non-Staff Specialty: Medical Address: [address] [place] [address], [id number] Email: Tylor Aguayo MD Attending Provider Non-Staff Referring Provider Specialty: Physical Medicine and Rehab Address: [address] [place] [address], [id number] Email: Visit Number Visit Number 52 Discharge Summary PT-OP-B Current Condition Start: 10/06/20 07:42 Freq: Status: Active Protocol: Document 10/06/20 09:00 AMB (Rec: 10/06/20 09:15 AMB [id number]) Current Condition History of Current Condition Onset Date 08/15/20 Current Complaints R shoulder pain History of Current Condition 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 Had a MRI at [facility], Per pt report showed bicep tendon tear and labrum tear per pt report. Considering surgery. Does have ankylosing spondylitis. Not currently working because has a 10# lifting restriction and they don' t have work that can accomodate that. R shoulder stiffness currently. Difficulty sleeping. 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 Treatment Goals Patient/Caregiver Goals Reduce R shoulder pain returnt to work. Prior Functional Status Baseline Function- ADL's Independent Baseline Function- Mobility Independent Current Functional Impairments (Reported) Functional Limitations- ADL's Difficult lifting arm, lifting objects even of light weight (groceries) Personal Factors Other Personal Factors That May Effect Ankylosing spondylitis Therapy/Recovery PT-OP-C Subjective Start: 10/06/20 07:42 Freq: Status: Active Protocol: Document 07/21/21 14:35 SP (Rec: 07/21/21 15:34 SP [id number]) OP-PT Subjective Patient Comments Patient Comments Pt stated trying to adjust to new bed, memory more stiff foam. Found sleeping on R side caused more pain and still recovering, so can't yet. PT-OP-F Manual Assessment Start: 10/06/20 07:42 Freq: Status: Active Protocol: Document 10/06/20 09:00 AMB (Rec: 10/07/20 08:58 AMB [email or web address]) Manual Assessments Other Manual Assessments Other Manual Assessments Tenderness at acromion, attachment of long head of biceps, and throughout scapular muscles and upper traps. PT-OP-J Posture/Palpation/Skin Start: 10/06/20 07:42 Freq: Status: Active Protocol: Document 10/06/20 09:00 AMB (Rec: 10/07/20 08:58 AMB [email or web address]) Posture Evaluation Comments Posture Comments Flat lumbar and thoracic spine PT-OP-K Range of Motion Start: 10/06/20 07:42 Freq: Status: Active Protocol: Document 07/09/21 13:38 AMB (Rec: 07/09/21 13:42 AMB [id number]) Shoulder Goniometric Range of Motion Shoulder Right Active Flexion 170 Abduction 180 Horizontal Adduction 40 PT-OP-L Special Tests Start: 10/06/20 07:42 Freq: Status: Active Protocol: Document 02/09/21 16:06 AMB (Rec: 02/09/21 16:06 AMB [email or web address]) Special Tests Shoulder Special Tests Neer Impingement Comments not performed due to precautions [place] Impingement Comments not performed due to precautions PT-OP-M Strength Start: 10/06/20 07:42 Freq: Status: Active Protocol: Document 07/09/21 13:38 AMB (Rec: 07/09/21 13:42 AMB [id number]) Shoulder Strength Shoulder Manual Muscle Testing Right Flexion 4+ Good+ Abduction (C5) 4 Good External Rotation 4- Good- Internal Rotation 4+ Good+ Comments ER painful PT-OP-T Assessment and Plan Start: 10/06/20 07:42 Freq: Status: Active Protocol: Document 09/20/21 11:41 AMB (Rec: 09/20/21 11:44 AMB [id number]) Physical Therapy Assessment Goals Three Impairment Pain Short Term Goal (STG) Flynn will improve his shoulder strength and ROM so that he can wash his back without shoulder pain. 07/10: Pain with crossing arm across midline and reaching into a lot of IR behind back. STG Duration progress made Orange Grower Goal (LTG) Flynn will lift his arm over head without pain so that he can return to work without shoulder pain. 06/15: NOT MET YET- pt can lift his arm overhead but cannot lift more than 4-5# without pain, and has difficulty lifting any weight repetetively overhead. LTG Duration 12 weeks Two Impairment Strength Short Term Goal (STG) Flynn will improve his R shoulder strength to 4/5 in all planes. 07/09: ER is the only plane of motion that has not yet this goal yet. STG Duration 6 weeks Long-Term Goal (LTG) Flynn will lift 10# to shoulder height without an increase in shoulder pain. : if he keeps the weight close to his body, but if the weight is slightly away from his torso he cannot do this yet. LTG Duration 12 weeks One Impairment ROM Short Term Goal (STG) Flynn will improve his shoulder flexion (active) to 160 degrees. STG Duration MET Assessment Summary Assessment L&I did not approve more visits. Spoke with patient over the phone a month ago and asked that he let us know if he was going to get and MARLY or what was happening. Have not heard back, so pt is now discharged since it has been 2 months since he was last seen . At that time his range of motion had improved well, and his strength was continuing to improve, but not to the point where he could perform his work tasks, as he would berequired to lift 50#+ above shoulder height frequently. He would be welcome to return if /when he has more insurance visits if he continues to have difficulty returning to work.
== END 2021-09-21 14:26 ==
LOC: PHYS 14:30
PROVIDERS: PCP Family Medicine; Referring Provider Preventive Medicine Public Health & General Preventive Medicine; Visit Provider Preventive Medicine Public Health & General Preventive Medicine
DX: S46.011D Strain of muscle(s) and tendon(s) of the rotator cuff of right shoulder, subsequent encounter (principal); M75.41 Impingement syndrome of right shoulder
CPT/HCPCS: 97110; 97140; 97161; 97164

== ENCOUNTER → 2022-01-08 17:46 | Outpatient (CLI) | payer OTHER, MEDICAID, SELFPAY ==
--- NOTE | 2022-01-08 17:50 | DI.RAD.S_ITS ---
PROCEDURE: XR KNEE LT 3V INDICATIONS: Left knee strain TECHNIQUE: 3 views of the knee were acquired. COMPARISON: None. FINDINGS: Bones: No fractures or dislocations. No suspicious bony lesions. Soft tissues: No joint effusion. No suspicious soft tissue calcifications. IMPRESSION: 1. No fracture or dislocation. Dictated by: Scot Crawford M.D. on 01/09/2022 at 3:00 Approved by: Scot Crawford M.D. on 01/09/2022 at 3:01
== END ==
PROVIDERS: PCP Family Medicine; Referring Provider Nurse Practitioner Family; Visit Provider Nurse Practitioner Family
DX: S86.912A Strain of unspecified muscle(s) and tendon(s) at lower leg level, left leg, initial encounter (principal); X58.XXXA Exposure to other specified factors, initial encounter
CPT/HCPCS: 73562

== ENCOUNTER → 2022-12-31 13:42 | Outpatient (CLI) | payer OTHER, MEDICAID, SELFPAY ==
[2022-12-31 14:45] LABS: Influenza A - CEPHEID Flu A NEGATIVE (NEGATIVE); Influenza B - CEPHEID Flu B NEGATIVE (NEGATIVE); Respiratory Syncytial Virus Negative (Negative)
[2022-12-31 14:46] LABS: COVID-19 CEPHEID 4-PLEX PCR Negative (Negative)
== END ==
PROVIDERS: PCP Physician Assistant Medical; Visit Provider Nurse Practitioner Family
DX: J06.9 Acute upper respiratory infection, unspecified (principal)
CPT/HCPCS: 0241U

== ENCOUNTER 2023-06-17 13:25 | Emergency (ER) | payer OTHER, MEDICAID, SELFPAY ==
[2023-06-17] VITALS (10 sets, daily range): BP systolic 125–179; BP diastolic 73–107; PULSE 63–99; RESP 15–22; TEMP 36.8; O2SAT 95–99; BMI 36.9
--- NOTE | 2023-06-17 13:39 | DI.RAD.S_ITS ---
PROCEDURE: XR CHEST 1V INDICATIONS: chest pain TECHNIQUE: One view of the chest was acquired. COMPARISON: None. FINDINGS: Surgical changes and devices: None. Lungs and pleura: Lungs are clear. No pleural effusions or pneumothorax. Mediastinum: Mediastinal contours appear normal. Heart size is normal. Bones and chest wall: No suspicious bony lesions. Overlying soft tissues appear unremarkable. IMPRESSION: No acute cardiopulmonary abnormality is seen. Dictated by: Ermias Canchola M.D. on 06/17/2023 at 14:21 Approved by: Ermias Canchola M.D. on 06/17/2023 at 14:22
--- NOTE | 2023-06-17 14:00 | ED_ITS ---
HPI - General Adult General Chief complaint: Dizziness Stated complaint: HBP, sent by PT Time Seen by Provider: 06/17/23 13:59 Source: patient Mode of arrival: Ambulatory History of Present Illness HPI narrative: 33-year-old male presents with dizziness, hypertension. The patient states that in the last week, he has had intermittent dizziness with standing, without clear changes with position and head. Dizziness immediately worse if he sits up or stands. He has not fallen. No clear vertigo. No acute visual or hearing changes, though he states he has chronic tinnitus bilaterally. He denies fevers, chills, recent trauma, chiropractic, chest or back or abdominal or flank pain, focal numbness or weakness, difficulty speaking or eating, confusion, or any other new concerns. He states he was sent here by Physical therapy for further evaluation. Related Data Previous Rx's Medication Instructions Recorded ondansetron HCl 4 mg tablet 4 mg PO Q8H PRN nausea and 10/01/22 vomiting #8 tabs Allergies Allergy/AdvReac Type Severity Reaction Status Date / Time melatonin AdvReac Verified 06/17/23 13:35 Review of Systems Review of Systems Narrative: Constitutional: no fever, no chills Eyes: no visual disturbance, no discharge Ears, Nose, Mouth, Throat: no rhinorrhea, no sore throat Cardiovascular: no chest pain, no palpitations Respiratory: no cough, no shortness of breath Gastrointestinal: no abdominal pain, no vomiting, no diarrhea Genitourinary: no dysuria, no hematuria Musculoskeletal: no back pain, no neck stiffness Skin: no rash, no wound Neurological: no focal weakness, no focal numbness Patient History Social History Smoking Status: Current every day smoker Smoking Status: Current every day smoker tobacco type: vaping alcohol intake frequency: a few times a week Alcohol type: beer Substance Use Type: marijuana Exam Narrative Exam Narrative: Const: no acute distress, non toxic appearing; calm, conversant, pleasant Eyes: PERRLA, EOMI ENT: mucous membranes moist Neck: supple, non-tender Resp: no respiratory distress, clear to auscultation bilaterally Card: regular rate and rhythm, no murmurs Abd: non tender diffusely, no rigidity or rebound or guarding Back: no T or L spine tenderness, no CVA tenderness bilaterally Extrem: no deformities, no swelling bilateral lower extremities Neuro: ANOx4. obstetrics and gynecology professor 2-12 intact. No rotatory or vertical nystagmus. Normal tone all extremities. Sensation intact to light touch all extremities. No ankle clonus bilaterally. 5/5 motor strength all extremities. Normal FNF BUE; normal heel-kinney test BLE. No pronator drift. Negative Romberg. Normal gait. No dysarthria. No neglect. Grossly normal cognition. Skin: no rash, warm and dry Initial Vital Signs Initial Vital Signs: Vital Signs Temperature 98.2 F 06/17/23 13:35 Pulse Rate 97 H 06/17/23 13:35 Respiratory Rate 15 06/17/23 13:35 Blood Pressure 179/104 H 06/17/23 13:35 Pulse Oximetry 96 06/17/23 13:35 Oxygen Delivery Method Room Air 06/17/23 13:35 Course Course Course Narrative: This patient is well-appearing with reassuring neurovascular exam, noting intermittent dizziness with standing. While I think intravascular volume depletion, orthostatic hypotension are more likely causes for his symptoms, Ativan abundance of caution I will pursue CT head and CTA head and neck for further assessment to rule out evidence of vascular dissection, mass or any clear bleeding. I am also obtaining labs as above to assess for DARYL, electrolyte derangements. I am giving fluids and will closely reassess. Patient currently stable. EKG NSR without acute ischemia or immediately concerning interval prolongation on my review. CBC reassuring. INR within normal limits. PTT mildly elevated. Chemistry grossly reassuring. Troponin reassuring. Lipase reassuring. Labs and imaging here overall reassuring. Blood pressure improved. Patient has reassuring repeat neurovascular exams. In this setting, he appears stable for discharge with close follow up with no other new concerns. And family agree with plan. Blood pressure is elevated here, however without clinical evidence of hypertensive emergency. Discussed with patient for follow-up. Repeat exam and vital signs reassuring. Questions answered. Plan reviewed. Patient discharged in stable condition. --- Radiology review of imaging below, which I agree with on my independent review: CTA: FINDINGS: Image quality: Diagnostic. BRAIN: CSF spaces: Ventricles are normal in size and shape. Basal cisterns are patent. No extra-axial fluid collections. Brain: No significant abnormality of the brain can be seen. Skull and face: Calvarium and facial bones appear intact, without suspicious lesions. Orbits appear normal. Sinuses: Sinuses and mastoids are free of acute appearing abnormality. Stable mild bilateral ethmoid air cell and anterior maxillary sinus mucosal thickening also seen on head CT earlier today.. HEAD CT ANGIOGRAPHY: Anterior circulation: Intracranial internal carotid arteries are normal in size and flow. The flow within the paired anterior cerebral arteries is normal and symmetric. The flow within the middle cerebral arteries is normal and symmetric. The anterior communicating artery is seen. No aneurysms are seen. Posterior circulation: Visualized portions of the vertebral arteries demonstrate normal caliber, and join to form a normal appearing basilar artery. Flow within the posterior cerebral arteries is normal and symmetric. No aneurysms are seen. NECK CT ANGIOGRAPHY: Carotid system: The great vessels demonstrate a conventional anatomy as they arise from the aortic arch. The origins of the common carotid arteries appear patent. The common carotid arteries demonstrate normal caliber and courses. The bifurcation regions are both widely patent. The internal carotid arteries demonstrate normal calibers and courses. Posterior circulation: The origins of the vertebral arteries both appear widely patent. The more superior extracranial portions of both vertebral arteries also demonstrate normal courses and calibers. They join to form a normal appearing basilar artery. Soft tissues: Visualized neck soft tissues demonstrate no suspicious abnormalities. Bones: No suspicious bony lesions. Visualized cervical spine appears normally aligned. IMPRESSION: No significant intracranial arterial abnormality is seen. No significant abnormality is seen within the arteries of the neck. Any quantitative measurements of stenosis were performed using NASCET criteria. Dictated by: Andres Suarez M.D. on 06/17/2023 at 15:42 HCT: FINDINGS: Image quality: Diagnostic. CSF spaces: Basal cisterns are patent. No extra-axial fluid collections. Ventricles are normal in size and shape. Brain: No midline shift. No intracranial masses or hemorrhage. Resendiz-white matter interface is normal. Skull and face: Calvarium and visualized facial bones are intact, without suspicious lesions. Sinuses: Visualized sinuses and mastoids are clear except for mild bilateral ethmoid air cell mucosal thickening and slight thickening at the anterior aspect of the maxillary sinuses bilaterally.. IMPRESSION: No acute intracranial pathology. Mild chronic appearing sinusitis as discussed. Dictated by: Andres Suarez M.D. on 06/17/2023 at 15:12 CXR: FINDINGS: Surgical changes and devices: None. Lungs and pleura: Lungs are clear. No pleural effusions or pneumothorax. Mediastinum: Mediastinal contours appear normal. Heart size is normal. Bones and chest wall: No suspicious bony lesions. Overlying soft tissues appear unremarkable. IMPRESSION: No acute cardiopulmonary abnormality is seen. Dictated by: Ermias Canchola M.D. on 06/17/2023 at 14:21 Orders Ordered: ED Orders 06/17/23 13:39 XR chest 1V Stat 06/17/23 13:52 EKG-12 Lead Stat 06/17/23 14:10 CT angio head and neck Stat CT head/brain wo con Stat 06/17/23 14:14 Complete Blood Count AUTO DIFF Stat Comprehensive Metabolic Panel Stat Lipase Stat Magnesium Stat PTT Partial Thromboplastin Robert Stat Prothrombin Time INR Stat Troponin & CK Cardiac Panel Stat Discontinued Medications Sodium Chloride (Normal Saline 0.9%) 1,000 mls @ 1,000 mls/hr IV BOLUS ONE Stop: 06/17/23 15:09 Last Infusion: 06/17/23 15:23 Dose: Infused Documented By: Admin: 06/17/23 14:21 Dose: 1,000 mls/hr Documented By: NENA Vital Signs Vital signs: Vital Signs - 8 hr 06/17/23 13:35 06/17/23 13:41 06/17/23 13:41 Temperature 98.2 F Pulse Rate 97 H 88 Respiratory Rate 15 Blood Pressure 179/104 H 178/107 H Pulse Oximetry 96 98 Oxygen Delivery Method Room Air Room Air 06/17/23 14:00 06/17/23 14:00 06/17/23 14:30 Temperature Pulse Rate 99 H 76 Respiratory Rate 22 Blood Pressure 159/89 H Pulse Oximetry 95 96 Oxygen Delivery Method 06/17/23 14:30 06/17/23 14:59 06/17/23 14:59 Temperature Pulse Rate 72 Respiratory Rate 21 Blood Pressure 125/79 154/91 H Pulse Oximetry 97 Oxygen Delivery Method 06/17/23 15:00 06/17/23 15:00 06/17/23 15:30 Temperature Pulse Rate 72 73 Respiratory Rate 16 18 Blood Pressure 153/87 H Pulse Oximetry 99 97 Oxygen Delivery Method 06/17/23 15:30 06/17/23 15:42 06/17/23 15:42 Temperature Pulse Rate 69 Respiratory Rate 19 Blood Pressure 134/77 153/85 H Pulse Oximetry 99 Oxygen Delivery Method 06/17/23 16:00 06/17/23 16:00 06/17/23 16:33 Temperature Pulse Rate 63 73 Respiratory Rate 20 16 Blood Pressure 134/73 149/83 H Pulse Oximetry 98 98 Oxygen Delivery Method Room Air Medical Decision Making Lab Data 06/17/23 14:14 06/17/23 14:14 Labs: Lab Results 06/17/23 Range/Units 14:14 WBC 8.3 (4.5-11.0) X10^3/uL RBC 4.86 (4.5-5.9) X10^6/uL Hgb 15.1 (13.5-17.5) g/dL Hct 43.9 (41-53) % MCV 90.3 (80-100) fL MCH 31.0 (26-34) PG MCHC 34.3 (30-36) % RDW 12.5 (11.6-14.8) % Plt Count 246 (150-400) X10^3/uL Neut % (Auto) 64.4 (50-75) % Lymph % (Auto) 23.9 L (25-40) % [place] % (Auto) 8.4 (3-14) % Eos % (Auto) 2.7 (2-4) % Baso % (Auto) 0.6 (0-2) % Neut # (Auto) 5300 (4494-2172) /uL Lymph # (Auto) 2000 (9268-0006) /uL [place] # (Auto) 700 (0-900) /uL Eos # (Auto) 200 (0-450) /uL Baso # (Auto) 100 (0-100) /uL PT 11.5 (9.4-12.5) SECONDS INR 1.0 (0.9-1.3) APTT 38 H (25.1-36.5) SECONDS Sodium 139 (137-145) mmol/L Potassium 4.0 (3.4-5.1) mmol/L Chloride 106 (98-107) mmol/L Carbon Dioxide 26 (22-32) mmol/L BUN 12 (9-20) mg/dL Creatinine 0.75 (0.66-1.25) mg/dL Estimated GFR > 60 (>60) mL/min BUN/Creatinine Ratio 16.0 (6-22) Glucose 113 H (70-100) mg/dL Calcium 10.0 (8.4-10.2) mg/dL Magnesium 1.9 (1.6-2.3) mg/dL Total Bilirubin 1.1 (0.2-1.3) mg/dL AST 31 (17-59) IU/L ALT 42 (<50) IU/L Alkaline Phosphatase 85 (38-126) U/L Total Creatine Kinase 77 (55-170) U/L Troponin I < 0.012 (0.01-0.034) ng/mL Total Protein 7.9 (6.3-8.2) g/dL Albumin 4.6 (3.5-5.0) g/dL Globulin 3.3 (1.7-4.1) g/dL Albumin/Globulin Ratio 1.4 (1.0-2.8) Lipase 66 (23-300) U/L Urine Dip Bedside Urine Glucose Negative Bedside Urine Bilirubin - Negative Bedside Urine Ketone - Negative Urine Specific [place] 1.010 Bedside Urine Occult Blood - Negative Bedside Urine pH 8.5 Bedside Urine Protein - Negative Bedside Urine Urobilinogen - Negative Bedside Urine Nitrite - Negative Bedside Urine Leukocytes - Negative Esterase Point of care testing: Urine Dip Bedside Urine Glucose Negative Bedside Urine Bilirubin - Negative Bedside Urine Ketone - Negative Urine Specific [place] 1.010 Bedside Urine Occult Blood - Negative Bedside Urine pH 8.5 Bedside Urine Protein - Negative Bedside Urine Urobilinogen - Negative Bedside Urine Nitrite - Negative Bedside Urine Leukocytes - Negative Esterase Discharge Plan Departure Patient Disposition: Home Clinical Impression: Dizziness Instructions: DI for Dizziness-Nonvertigo Activity Restrictions/Additional Instructions: It was a pleasure taking care of you today. It is important to fully read and understand the below. Please ask us if you have any questions. Your tests here are currently reassuring. Please see your primary doctor within 5 days to be reassessed and discuss further testing and treatment. No tests or assessments are perfect, and your condition could slip box changer time. If your symptoms change or worsen, it is very important you immediately seek medical care. If you have any new or worsening pain, shortness of breath, fever, vomiting, confusion, numbness, weakness, visual or hearing changes, trouble walking or talking or eating, or anything else that concerns you, please immediately seek medical care. If you have been prescribed any medications: please read the drug package inserts on how to properly use the medication and any potential side effects. If you had labs (blood tests) or imaging (CT scan or x-rays) done during your visit: please follow up on the results of these with your primary care doctor, as discussed. In addition, please know the results we received today may be preliminary. Our usual practice is to follow up on tests within a few days of a patient's discharge from the Emergency Department and notify you of any changes. These may lead to changes to your treatment plan. However, the best way to obtain and interpret these test results is through your Primary Care Provider. If you need to update your contact information, please stop by the credit front office developer and alert the Registration personnel before you leave the Emergency Department. Thank you for the opportunity to participate in your healthcare. We are always here and happy to see you in the future. --- PLEASE TAKE THE ATTACHED IMAGING TO YOUR DOCTORS: FINDINGS: Image quality: Diagnostic. BRAIN: CSF spaces: Ventricles are normal in size and shape. Basal cisterns are patent. No extra-axial fluid collections. Brain: No significant abnormality of the brain can be seen. Skull and face: Calvarium and facial bones appear intact, without suspicious lesions. Orbits appear normal. Sinuses: Sinuses and mastoids are free of acute appearing abnormality. Stable mild bilateral ethmoid air cell and anterior maxillary sinus mucosal thickening also seen on head CT earlier today.. HEAD CT ANGIOGRAPHY: Anterior circulation: Intracranial internal carotid arteries are normal in size and flow. The flow within the paired anterior cerebral arteries is normal and symmetric. The flow within the middle cerebral arteries is normal and symmetric. The anterior communicating artery is seen. No aneurysms are seen. Posterior circulation: Visualized portions of the vertebral arteries demonstrate normal caliber, and join to form a normal appearing basilar artery. Flow within the posterior cerebral arteries is normal and symmetric. No aneurysms are seen. NECK CT ANGIOGRAPHY: Carotid system: The great vessels demonstrate a conventional anatomy as they arise from the aortic arch. The origins of the common carotid arteries appear patent. The common carotid arteries demonstrate normal caliber and courses. The bifurcation regions are both widely patent. The internal carotid arteries demonstrate normal calibers and courses. Posterior circulation: The origins of the vertebral arteries both appear widely patent. The more superior extracranial portions of both vertebral arteries also demonstrate normal courses and calibers. They join to form a normal appearing basilar artery. Soft tissues: Visualized neck soft tissues demonstrate no suspicious abnormalities. Bones: No suspicious bony lesions. Visualized cervical spine appears normally aligned. IMPRESSION: No significant intracranial arterial abnormality is seen. No significant abnormality is seen within the arteries of the neck. Any quantitative measurements of stenosis were performed using NASCET criteria. Dictated by: Andres Suarez M.D. on 06/17/2023 at 15:42 Prescriptions: No Action ondansetron HCl 4 mg tablet 4 mg PO Q8H PRN (Reason: nausea and vomiting) Qty: 8 0RF Referrals: Casper Amaro PA-C [Primary Care Provider] - Stand Alone Forms: Patient Portal/API
--- NOTE | 2023-06-17 14:10 | DI.CT.S_ITS ---
PROCEDURE: CT ANGIO HEAD AND NECK INDICATIONS: dizziness, rule out dissection TECHNIQUE: After the administration of intravenous contrast, 1 mm thick sections acquired from the aortic arch through the [place] of [place]. 3-dimensional cfletlq-hjqnwpcyf-qpgpnlincl (MIP) and/or volume rendering reformats were acquired of the central intracranial vasculature and neck separately. For radiation dose reduction, the following was used: automated exposure control, adjustment of mA and/or kV according to patient size. COMPARISON: [facility], CT, CT HEAD/BRAIN WO CON, 06/17/2023, 14:52. FINDINGS: Image quality: Diagnostic. BRAIN: CSF spaces: Ventricles are normal in size and shape. Basal cisterns are patent. No extra-axial fluid collections. Brain: No significant abnormality of the brain can be seen. Skull and face: Calvarium and facial bones appear intact, without suspicious lesions. Orbits appear normal. Sinuses: Sinuses and mastoids are free of acute appearing abnormality. Stable mild bilateral ethmoid air cell and anterior maxillary sinus mucosal thickening also seen on head CT earlier today.. HEAD CT ANGIOGRAPHY: Anterior circulation: Intracranial internal carotid arteries are normal in size and flow. The flow within the paired anterior cerebral arteries is normal and symmetric. The flow within the middle cerebral arteries is normal and symmetric. The anterior communicating artery is seen. No aneurysms are seen. Posterior circulation: Visualized portions of the vertebral arteries demonstrate normal caliber, and join to form a normal appearing basilar artery. Flow within the posterior cerebral arteries is normal and symmetric. No aneurysms are seen. NECK CT ANGIOGRAPHY: Carotid system: The great vessels demonstrate a conventional anatomy as they arise from the aortic arch. The origins of the common carotid arteries appear patent. The common carotid arteries demonstrate normal caliber and courses. The bifurcation regions are both widely patent. The internal carotid arteries demonstrate normal calibers and courses. Posterior circulation: The origins of the vertebral arteries both appear widely patent. The more superior extracranial portions of both vertebral arteries also demonstrate normal courses and calibers. They join to form a normal appearing basilar artery. Soft tissues: Visualized neck soft tissues demonstrate no suspicious abnormalities. Bones: No suspicious bony lesions. Visualized cervical spine appears normally aligned. IMPRESSION: No significant intracranial arterial abnormality is seen. No significant abnormality is seen within the arteries of the neck. Any quantitative measurements of stenosis were performed using NASCET criteria. Dictated by: Andres Suarez M.D. on 06/17/2023 at 15:42 Approved by: Andres Suarez M.D. on 06/17/2023 at 15:44
--- NOTE | 2023-06-17 14:10 | DI.CT.S_ITS ---
PROCEDURE: CT HEAD/BRAIN WO CON INDICATIONS: dizziness TECHNIQUE: Noncontrast 4.5 mm thick angled axial sections acquired from the foramen magnum to the vertex, with coronal and sagittal reformats. For radiation dose reduction, the following was used: automated exposure control, adjustment of mA and/or kV according to patient size. COMPARISON: None. FINDINGS: Image quality: Diagnostic. CSF spaces: Basal cisterns are patent. No extra-axial fluid collections. Ventricles are normal in size and shape. Brain: No midline shift. No intracranial masses or hemorrhage. Resendiz-white matter interface is normal. Skull and face: Calvarium and visualized facial bones are intact, without suspicious lesions. Sinuses: Visualized sinuses and mastoids are clear except for mild bilateral ethmoid air cell mucosal thickening and slight thickening at the anterior aspect of the maxillary sinuses bilaterally.. IMPRESSION: No acute intracranial pathology. Mild chronic appearing sinusitis as discussed. Dictated by: Andres Suarez M.D. on 06/17/2023 at 15:12 Approved by: Andres Suarez M.D. on 06/17/2023 at 15:13
[2023-06-17] MEDS: SODIUM CHLORIDE 0.9% 1,000 ML 1000 ML IV (14:21)
[2023-06-17 14:25] LABS: Add Manual Diff / Slide Review NO; Basophils Absolute Auto 100 /uL (0-100); Basophils Percent Auto 0.6 % (0-2); Eosinophils Absolute Auto 200 /uL (0-450); Eosinophils Percent Auto 2.7 % (2-4); Hematocrit 43.9 % (41-53); Hemoglobin 15.1 g/dL (13.5-17.5); Lymphocytes Absolute Auto 2000 /uL (1100-4500); Lymphocytes Percent Auto 23.9 % (25-40); Mean Corpuscular HGB Conc 34.3 % (30-36); Mean Corpuscular Volume 90.3 fL (80-100); Monocytes Absolute Auto 700 /uL (0-900); Monocytes Percent Auto 8.4 % (3-14); Neutrophils Absolute Auto 5300 /uL (1500-7000); Neutrophils Percent Auto 64.4 % (50-75); Platelet Count 246 X10^3/uL (150-400); Red Blood Cell Count 4.86 X10^6/uL (4.5-5.9); Red Cell Distribution Width 12.5 % (11.6-14.8); White Blood Cell Count 8.3 X10^3/uL (4.5-11.0)
[2023-06-17 14:29] LABS: Prothrombin Time 11.5 SECONDS (9.4-12.5)
[2023-06-17 14:32] LABS: PTT Partial Thromboplastin Tim 38 SECONDS (25.1-36.5)
[2023-06-17 14:35] LABS: Alanine Aminotransferase 42 IU/L (<50); Albumin 4.6 g/dL (3.5-5.0); Albumin Globulin Ratio 1.4 (1.0-2.8); Alkaline Phosphatase 85 U/L (38-126); Aspartate Aminotransferase 31 IU/L (17-59); Bilirubin Total 1.1 mg/dL (0.2-1.3); Blood Urea Nitrogen 12 mg/dL (9-20); Carbon Dioxide 26 mmol/L (22-32); Chloride 106 mmol/L (98-107); Creatine Kinase 77 U/L (55-170); Estimated Glomerular Filt Rate > 60 mL/min (>60); Globulin 3.3 g/dL (1.7-4.1); Glucose 113 mg/dL (70-100); HEMOLYSIS < 15 (0-50); Lipase 66 U/L (23-300); Magnesium 1.9 mg/dL (1.6-2.3); Sodium 139 mmol/L (137-145); Total Protein 7.9 g/dL (6.3-8.2)
[2023-06-17 14:46] LABS: Troponin I < 0.012 ng/mL (0.01-0.034)
== END 2023-06-17 16:34 | disposition home or self-care (01) ==
PROVIDERS: Emergency Provider Emergency Medicine; PCP Physician Assistant Medical
DX: R42 Dizziness and giddiness (principal); I10 Essential (primary) hypertension
CPT/HCPCS: 36415; 70450; 70496; 70498; 71045; 80053; 81003; 82550; 83690; 83735; 84484; 85025; 85610; 85730; 93005; 96360; 99284

== ENCOUNTER 2023-07-13 09:00 | Outpatient (RCR) | payer OTHER, MEDICAID, SELFPAY ==
--- NOTE | 2023-03-03 16:12 | PT.OIE ---
Current Diagnoses Strain of muscle, fascia and tendon at neck level, subsequent encounter (03/02/23) Strain of muscle and tendon of back wall of thorax, initial encounter (03/02/23) Visit Care Team Role Provider Type Casper Amaro PA-C Primary Care Provider Non-Staff Specialty: Medical Address: [address] [place] [address], [id number] Email: Tylor Aguayo MD Attending Provider Non-Staff Referring Provider Specialty: Physical Medicine and Rehab Address: [address] [place], [address] Email: Physical Therapy Initial Evaluation PT-OP-A Visit Information Start: 03/02/23 16:12 Freq: Status: Active Protocol: Document 03/02/23 16:13 NM (Rec: 03/02/23 16:43 NM [id number]) Out-Patient Physical Therapy Visit Information Visit Information Visit Type Initial Evaluation Visit Note 04/29 Visit Start Time 14:45 Visit Stop Time 15:25 Total Visit Minutes 40 Visit Number 1 Evaluation Information Evaluation Date 03/02/23 PT-OP-B Current Condition Start: 03/02/23 16:12 Freq: Status: Active Protocol: Document 03/02/23 16:13 NM (Rec: 03/02/23 16:43 NM [id number]) Current Condition History of Current Condition Onset Date 01/19/23 Current Complaints neck and thoracic stiffness/ pain, muscle tightness, pressure in spine History of Current Condition Pt presents to clinic with cervical and thoracic pain beginning on 01/19/23 when pt was attempting set a windshield into a large car alone. He reports feeling something (cannot elaborate) in his R mid back when lifting the windshield and placing it in the car, but was not able to stop work due to a busy schedule. The next day his neck/back pain worsened and has not relented. The pain is most pronounced between his R scapula and spine, but he also has tenderness on the back of his head/neck. Symptoms also include neck/mid back stiffness along with tight muscles of the neck and between shoulder blades. He has been unable to work since 01/21/23. Pt had a previous shoulder surgery (biceps tendon/labrum repair) and had returned to work for about 6-7 months when the injury occurred. Treatment Goals Patient/Caregiver Goals Return to work, decrease pain Prior Functional Status Baseline Function- ADL's Independent Baseline Function- Mobility Independent Baseline Function- Work/School Able to perform most of job functions, has a trainee to help. He was completing a work conditioning program for prior shoulder surgery but did not complete program Current Functional Impairments (Reported) Functional Limitations- ADL's Able to perform ADLs with assistance due to pain Functional Limitations- Mobility/Gait Pain with movement (standing, walking) and sustained postures (sitting, standing) Functional Limitations- Work/School Currently unable to work due to pain PT-OP-C Subjective Start: 03/02/23 16:12 Freq: Status: Active Protocol: Document 03/02/23 16:13 NM (Rec: 03/02/23 16:43 NM [id number]) Patient Questionnaires Neck Disability Index NDI Score 21/50 Quick Dash- Upper Extremity Quick Dash UE Score 36% OP-PT Pain Assessment Location Thoracic Spine Pain Location Details Lateral to spine, medial to scapular, R>L Intensity 4 Scale Used Numeric (0 - 10) Description Aching,Dull Pain Aggravating Factors Position,Activity Cervical Spine Pain Location Details suboccipital, lower C spine Intensity 4 Scale Used Numeric (0 - 10) Description Aching,Dull Frequency Daily Pain Alleviating Factors Lying Supine,Position Other Pain Alleviating Factors reclining/tilt chair Home Pain Medication Use Pain Medications Used Yes: tylenol and ibuprofen Home Pain Medication Frequency occasional Pain Behaviors Pain Behaviors Guarding PT-OP-E Functional Tests Start: 03/02/23 16:12 Freq: Status: Active Protocol: Document 03/02/23 16:13 NM (Rec: 03/02/23 16:43 NM [id number]) Functional Tests Other Deep Neck Flexor Endurance Test Score 5 seconds (norm = 38 seconds) Comment Supine with neck in cervical retraction and neck flexion off table PT-OP-F Manual Assessment Start: 03/02/23 16:12 Freq: Status: Active Protocol: Document 03/02/23 16:13 NM (Rec: 03/02/23 16:43 NM [id number]) Manual Assessments Soft Tissue Assessment Soft Tissue Mobility Assessment Pt able to tolerate moderate intensity soft tissue assessment. Demos decreased soft tissue mobility of R upper trapezius, R SCM, B rhomboids, and B rotator cuff muscles. Joint Mobility Assessment Joint Mobility Assessment P-A springing of cervical and thoracic spinous processes have normal segmental mobility . Pt reports symptom relief with assessment. Decreased lower cervical spine mobility during L>R side glides, no pain or symptom provocation. Thoracic rib mobility and transverse process segmental mobility normal, as well; no pain or symptom provocation. PT-OP-G Mobility & Gait Start: 03/02/23 16:12 Freq: Status: Active Protocol: Document 03/02/23 16:13 NM (Rec: 03/02/23 16:43 NM [id number]) OP Gait Assessment Gait Gait Assistance Required: Independent PT-OP-H Neuro Start: 03/02/23 16:12 Freq: Status: Active Protocol: Document 03/02/23 16:13 NM (Rec: 03/02/23 16:43 NM [id number]) Sensation Evaluation Gross Sensation Gross Sensation WNL Comments Summary Comments Cervical, UE, thoracic dermatomes intact to light touch sensation bilaterally. PT-OP-J Posture/Palpation/Skin Start: 03/02/23 16:12 Freq: Status: Active Protocol: Document 03/02/23 16:13 NM (Rec: 03/02/23 16:43 NM [id number]) Posture Evaluation Position Standing Evaluation View Lateral Head/C-Spine Posture Forward Head T-Spine Posture Increased Kyphosis L-Spine Posture Decreased Lordosis Shoulder Posture (R) Elevated Scapula Posture (L) Elevated,(R) Elevated,(R) Tipped Arm Posture (L) Externally Rotated,(R) Externally Rotated Pelvis Posture Posterior Tilted Weight Distribution Balanced Hip Posture (L) Externally Rotated,(R) Externally Rotated Palpation Assessment Location Thoracic Spine Palpation Location Bilateral: Rhomboids, Mid- lower Trapezius, periscapular muscles Palpation Findings Soft Tissue Tightness,Muscle Guarding,Tenderness Palpation Details R Rhomboid more tender to palpation than L Cervical Spine Palpation Location Bilateral: suboccipitals, Upper trapezius, paraspinals, SCM, LS Palpation Findings Soft Tissue Tightness,Spasm, Muscle Guarding,Tenderness Palpation Details Spasm in B suboccipitals; tenderness in R upper trap/SCM - limiting mobility PT-OP-K Range of Motion Start: 03/02/23 16:12 Freq: Status: Active Protocol: Document 03/02/23 16:13 NM (Rec: 03/02/23 16:43 NM [id number]) Cervical Spine Range of Motion Cervical Spine Active Degrees Testing Position Sitting Flexion 15 Extension 30 Rotation Left 40 Rotation Right 64 Lateral Flexion Left 30 Lateral Flexion Right 25 ROM Limitations Soft Tissue Tightness,Pain Comments Reports pressure in spine with cervical extension; pain medial to R scapula with B rotation Thoracic Spine ROM: Flex= 30 deg Ext = 0 deg L lateral flex = 15 deg R lateral flex = 20 deg L rotation = 7 cm R rotation = 9 cm Reports pain medial to R scapula with B rotation, L lateral flex PT-OP-L Special Tests Start: 03/02/23 16:12 Freq: Status: Active Protocol: Document 03/02/23 16:13 NM (Rec: 03/02/23 16:43 NM [id number]) Special Tests Cervical Spine Special Tests Transverse Ligament Test Results negative Comments no excessive motion Alar Ligament Test Results negative Comments no excessive motion in B lateral flexion or rotation Traction Test Results positive Comments relieves symptoms PT-OP-M Strength Start: 03/02/23 16:12 Freq: Status: Active Protocol: Document 03/02/23 16:13 NM (Rec: 03/02/23 16:43 NM [id number]) Cervical Spine Strength Cervical Spine Manual Muscle Testing Testing Position Sitting Flexion (C1-2) 4 Good Extension 4 Good Rotation Left 3+ Fair+ Rotation Right 3+ Fair+ Lateral Flexion Left (C3) 3+ Fair+ Lateral Flexion Right (C3) 3+ Fair+ Comments Pain medial to R scapula with resisted lateral flexion, in R SCM with rotation Trunk Strength Trunk Manual Muscle Testing Testing Position Sitting Flexion 4- Good- Extension 3+ Fair+ Rotation Left 4- Good- Rotation Right 4- Good- Lateral Flexion Left 4- Good- Lateral Flexion Right 4- Good- Comments B pain medial to B scapulae reproduced with lateral flexion Scapula Strength Scapula Manual Muscle Testing Left Elevation (C4) 4 Good Adduction 3+ Fair+ Abduction 4 Good Depression 4- Good- Comments Demos good neuromuscular control and AROM, no symptoms reported Serratus Anterior = 4 Upper trapezius = 4 Middle trapezius = 3+ Lower trapezius = 4- Rhomboids = 3+ Levator scapula = 4- Right Elevation (C4) 4 Good Adduction 3+ Fair+ Abduction 3+ Fair+ Depression 4- Good- Comments Demos limited AROM during elevation/depression, medial/ lateral glides; poor neuromuscular control and attempts to compensate with shoulder flexors. Serratus Anterior = 3+ Upper trapezius = 4 Middle trapezius = 3+ Lower trapezius = 4- Rhomboids = 3+ Levator scapula = 4- PT-OP-T Assessment and Plan Start: 03/02/23 16:12 Freq: Status: Active Protocol: Document 03/02/23 16:13 NM (Rec: 03/02/23 16:43 NM [id number]) Physical Therapy Assessment Rehab Potential Rehabilitation Potential Good Evaluation Complexity Number of Personal Factors/Comorbidities 1-2 Number of Body Systems Impaired 1-2 Clinical Presentation at Evaluation Stable Impairments Impairments Activity Tolerance,Functional Activities,Functional Mobility ,Pain,Posture,ROM,Soft Tissue Mobility,Strength Goals Eight Impairment ROM Impairment Global trunk ROM limited Short Term Goal (STG) Pt will improve global trunk ROM by at least 10 dg to demonstrate improved trunk mobility for strength and postural stability. STG Duration 6 visits Maintenance Operator Goal (LTG) Pt will improve global trunk ROM by at least 15 dg to demonstrate improved trunk mobility for strength and postural stability. LTG Duration 12 visits Seven Impairment compliance, function, strength Short Term Goal (STG) Pt will report compliance with HEP at least 3x/wk to maximize gains made during PT sessions. STG Duration 6 visits Maintenance Operator Goal (LTG) Pt will report and maintain compliance with HEP at least 3x/wk to demonstrate independence and maintain gains after discharge. LTG Duration 12 visits Six Impairment Function Impairment NDI 21/50 Short Term Goal (STG) Pt will improve NDI score by at least 7 points in order to demonstrate better tolerance for activity. STG Duration 6 visits Correction Goal (LTG) Pt will improve NDI score by at least 14 points (MCID) in order to demonstrate better tolerance for activity. LTG Duration 12 visits Five Impairment function Impairment Pt reports unable to lift more than 20# due to pain Short Term Goal (STG) Pt will be able to lift at least 25# with 2/10 or less neck/back pain to demo improved activity tolerance and to return to PLOF. STG Duration 6 visits Maintenance Operator Goal (LTG) Pt will be able to lift at least 40# (average windshield weight) with 2/10 or less neck /back pain to demo improved activity tolerance to return to PLOF. LTG Duration 12 visits Four Impairment Endurance, stability Impairment Deep Neck Flexor Endurance score 5 seconds Short Term Goal (STG) Pt's deep neck flexor endurance test will improve to at least 20 seconds in order to demonstrate improved cervical spine muscle endurance and strength. STG Duration 6 visits Correction Goal (LTG) Pt's deep neck flexor endurance test will improve to at least 38 seconds (gender norm) in order to demonstrate improved cervical spine muscle endurance and strength. LTG Duration 12 visits Three Impairment strength Impairment Cervical spine strength B lateral flexion and rotation 3 +/5 Short Term Goal (STG) Pt will increase B cervical spine lateral flexion and rotation muscle test to at least 4-/5 to demonstrate improved strength and stability to return to PLOF. STG Duration 6 visits Maintenance Operator Goal (LTG) Pt will increase B cervical spine lateral flexion and rotation muscle test to at least 4/5 to demonstrate improve strength and stability to return to PLOF. LTG Duration 12 visits Two Impairment ROM Impairment Cervical spine rotation ROM limited Short Term Goal (STG) Pt will increase cervical spine rotation ROM by at least 15 deg bilaterally for improved visual scanning during driving. STG Duration 6 visits Correction Goal (LTG) Pt cervical spine rotation ROM will be within 10 deg of each other bilaterally for improved visual scanning during driving. LTG Duration 12 visits One Impairment ROM Impairment Cervical spine flex ROM 15 deg , ext ROM 30 deg Short Term Goal (STG) Pt will increase cervical spine sagittal ROM by at least 15 deg in ea direction to improve mobility to PLOF. STG Duration 6 visits Maintenance Operator Goal (LTG) Pt will increase cervical spine sagittal ROM by at least 25 deg in ea direction to improve mobility to PLOF. LTG Duration 12 visits Assessment Summary Assessment Pt is a 32 y.o male presenting with cervical spine and thoracic spine pain consistent with the dx. His pain can be replicated with resisted movements of the cervical/ thoracic spine in addition to the periscapular stabilizers, such as the rhomboids and middle/lower trapezius. There are limitation in cervical spine and trunk ROM, which can improved with gentle mobility exercises, stretching, and mobilizations. Pt also demos poor scapular neuromuscular control and strength which may affect cervical and thoracic postural stabilizers. Pt will also need postural re- education during stationary and dynamic activities (e.g. lifting), along with progressive strengthening of postural and core muscles. Pt would benefit from skilled PT to address impairments in mobility, strength, endurance, posture, body mechanics during lifting, and to improve activity tolerance in order to return to PLOF. Physical Therapy Plan Frequency and Duration Frequency of Treatment 1-2x/wk, 12 visits Duration of treatment (weeks) 8 Plan of Care Start Date 03/02/23 Plan of Care End Date 04/20/23 Therapeutic Interventions Therapeutic Interventions Home Exercise Program,Joint Mobilizations,Manual Therapy, Neuromuscular Re-education, Patient/Caregiver Education, Self-Care/Home Management,Soft Tissue Mobilization, Therapeutic Activities, Therapeutic Exercises Modalities Cold Pack/Ice Massage,Electric Stimulation,Hot Packs, Iontophoresis,Ultrasound Next Visit Focus/Plan Next Note Type Treatment Note Next Visit Plan Cervical retraction, ROM, gentle mobility; soft tissue to suboccipitals, UT, rhomboids Thoracic ROM, gentle mobility, thoracic retraction. Scapular mobilizations
--- NOTE | 2023-03-04 15:56 | PT.OTN ---
Current Diagnoses Strain of muscle, fascia and tendon at neck level, subsequent encounter (03/04/23) Strain of muscle and tendon of back wall of thorax, initial encounter (03/04/23) Physical Therapy Treatment Note PT-OP-A Visit Information Start: 03/02/23 16:12 Freq: Status: Active Protocol: Document 03/04/23 15:33 NM (Rec: 03/04/23 15:56 NM [id number]) Out-Patient Physical Therapy Visit Information Visit Information Visit Type Treatment Note Visit Note 05/30 Visit Start Time 14:30 Visit Stop Time 15:15 Total Visit Minutes 45 Visit Number 05/30 Evaluation Information Evaluation Date 03/02/23 PT-OP-B Current Condition Start: 03/02/23 16:12 Freq: Status: Active Protocol: Document 03/02/23 16:13 NM (Rec: 03/02/23 16:43 NM [id number]) Current Condition History of Current Condition Onset Date 01/19/23 Current Complaints neck and thoracic stiffness/ pain, muscle tightness, pressure in spine History of Current Condition Pt presents to clinic with cervical and thoracic pain beginning on 01/19/23 when pt was attempting set a windshield into a large car alone. He reports feeling something (cannot elaborate) in his R mid back when lifting the windshield and placing it in the car, but was not able to stop work due to a busy schedule. The next day his neck/back pain worsened and has not relented. The pain is most pronounced between his R scapula and spine, but he also has tenderness on the back of his head/neck. Symptoms also include neck/mid back stiffness along with tight muscles of the neck and between shoulder blades. He has been unable to work since 01/21/23. Pt had a previous shoulder surgery (biceps tendon/labrum repair) and had returned to work for about 6-7 months when the injury occurred. Treatment Goals Patient/Caregiver Goals Return to work, decrease pain Prior Functional Status Baseline Function- ADL's Independent Baseline Function- Mobility Independent Baseline Function- Work/School Able to perform most of job functions, has a trainee to help. He was completing a work conditioning program for prior shoulder surgery but did not complete program Current Functional Impairments (Reported) Functional Limitations- ADL's Able to perform ADLs with assistance due to pain Functional Limitations- Mobility/Gait Pain with movement (standing, walking) and sustained postures (sitting, standing) Functional Limitations- Work/School Currently unable to work due to pain PT-OP-C Subjective Start: 03/02/23 16:12 Freq: Status: Active Protocol: Document 03/04/23 15:33 NM (Rec: 03/04/23 15:56 NM [id number]) OP-PT Subjective Patient Comments Patient Comments Pt presents to clinic with 5/ 10 neck and mid back pain. Reports that he did not sleep well last night and he has been sleeping in his beverley chair because it is uncomfortable for him to be on his back. Patient Reported Progress Same PT-OP-E Functional Tests Start: 03/02/23 16:12 Freq: Status: Active Protocol: Document 03/02/23 16:13 NM (Rec: 03/02/23 16:43 NM [id number]) Functional Tests Other Deep Neck Flexor Endurance Test Score 5 seconds (norm = 38 seconds) Comment Supine with neck in cervical retraction and neck flexion off table PT-OP-F Manual Assessment Start: 03/02/23 16:12 Freq: Status: Active Protocol: Document 03/02/23 16:13 NM (Rec: 03/02/23 16:43 NM [id number]) Manual Assessments Soft Tissue Assessment Soft Tissue Mobility Assessment Pt able to tolerate moderate intensity soft tissue assessment. Demos decreased soft tissue mobility of R upper trapezius, R SCM, B rhomboids, and B rotator cuff muscles. Joint Mobility Assessment Joint Mobility Assessment P-A springing of cervical and thoracic spinous processes have normal segmental mobility . Pt reports symptom relief with assessment. Decreased lower cervical spine mobility during L>R side glides, no pain or symptom provocation. Thoracic rib mobility and transverse process segmental mobility normal, as well; no pain or symptom provocation. PT-OP-G Mobility & Gait Start: 03/02/23 16:12 Freq: Status: Active Protocol: Document 03/02/23 16:13 NM (Rec: 03/02/23 16:43 NM [id number]) OP Gait Assessment Gait Gait Assistance Required: Independent PT-OP-H Neuro Start: 03/02/23 16:12 Freq: Status: Active Protocol: Document 03/02/23 16:13 NM (Rec: 03/02/23 16:43 NM [id number]) Sensation Evaluation Gross Sensation Gross Sensation WNL Comments Summary Comments Cervical, UE, thoracic dermatomes intact to light touch sensation bilaterally. PT-OP-J Posture/Palpation/Skin Start: 03/02/23 16:12 Freq: Status: Active Protocol: Document 03/02/23 16:13 NM (Rec: 03/02/23 16:43 NM [id number]) Posture Evaluation Position Standing Evaluation View Lateral Head/C-Spine Posture Forward Head T-Spine Posture Increased Kyphosis L-Spine Posture Decreased Lordosis Shoulder Posture (R) Elevated Scapula Posture (L) Elevated,(R) Elevated,(R) Tipped Arm Posture (L) Externally Rotated,(R) Externally Rotated Pelvis Posture Posterior Tilted Weight Distribution Balanced Hip Posture (L) Externally Rotated,(R) Externally Rotated Palpation Assessment Location Thoracic Spine Palpation Location Bilateral: Rhomboids, Mid- lower Trapezius, periscapular muscles Palpation Findings Soft Tissue Tightness,Muscle Guarding,Tenderness Palpation Details R Rhomboid more tender to palpation than L Cervical Spine Palpation Location Bilateral: suboccipitals, Upper trapezius, paraspinals, SCM, LS Palpation Findings Soft Tissue Tightness,Spasm, Muscle Guarding,Tenderness Palpation Details Spasm in B suboccipitals; tenderness in R upper trap/SCM - limiting mobility PT-OP-K Range of Motion Start: 03/02/23 16:12 Freq: Status: Active Protocol: Document 03/02/23 16:13 NM (Rec: 03/02/23 16:43 NM [id number]) Cervical Spine Range of Motion Cervical Spine Active Degrees Testing Position Sitting Flexion 15 Extension 30 Rotation Left 40 Rotation Right 64 Lateral Flexion Left 30 Lateral Flexion Right 25 ROM Limitations Soft Tissue Tightness,Pain Comments Reports pressure in spine with cervical extension; pain medial to R scapula with B rotation Thoracic Spine ROM: Flex= 30 deg Ext = 0 deg L lateral flex = 15 deg R lateral flex = 20 deg L rotation = 7 cm R rotation = 9 cm Reports pain medial to R scapula with B rotation, L lateral flex PT-OP-L Special Tests Start: 03/02/23 16:12 Freq: Status: Active Protocol: Document 03/02/23 16:13 NM (Rec: 03/02/23 16:43 NM [id number]) Special Tests Cervical Spine Special Tests Transverse Ligament Test Results negative Comments no excessive motion Alar Ligament Test Results negative Comments no excessive motion in B lateral flexion or rotation Traction Test Results positive Comments relieves symptoms PT-OP-M Strength Start: 03/02/23 16:12 Freq: Status: Active Protocol: Document 03/02/23 16:13 NM (Rec: 03/02/23 16:43 NM [id number]) Cervical Spine Strength Cervical Spine Manual Muscle Testing Testing Position Sitting Flexion (C1-2) 4 Good Extension 4 Good Rotation Left 3+ Fair+ Rotation Right 3+ Fair+ Lateral Flexion Left (C3) 3+ Fair+ Lateral Flexion Right (C3) 3+ Fair+ Comments Pain medial to R scapula with resisted lateral flexion, in R SCM with rotation Trunk Strength Trunk Manual Muscle Testing Testing Position Sitting Flexion 4- Good- Extension 3+ Fair+ Rotation Left 4- Good- Rotation Right 4- Good- Lateral Flexion Left 4- Good- Lateral Flexion Right 4- Good- Comments B pain medial to B scapulae reproduced with lateral flexion Scapula Strength Scapula Manual Muscle Testing Left Elevation (C4) 4 Good Adduction 3+ Fair+ Abduction 4 Good Depression 4- Good- Comments Demos good neuromuscular control and AROM, no symptoms reported Serratus Anterior = 4 Upper trapezius = 4 Middle trapezius = 3+ Lower trapezius = 4- Rhomboids = 3+ Levator scapula = 4- Right Elevation (C4) 4 Good Adduction 3+ Fair+ Abduction 3+ Fair+ Depression 4- Good- Comments Demos limited AROM during elevation/depression, medial/ lateral glides; poor neuromuscular control and attempts to compensate with shoulder flexors. Serratus Anterior = 3+ Upper trapezius = 4 Middle trapezius = 3+ Lower trapezius = 4- Rhomboids = 3+ Levator scapula = 4- PT-OP-Q Treatments Start: 03/04/23 15:33 Freq: Status: Active Protocol: Document 03/04/23 15:33 NM (Rec: 03/04/23 15:56 NM [id number]) Therapeutic Exercises Supine Exercises Pec stretch Comments to aggressive in supine Sidelying Exercises Open Books Side bilateral Reps/Minutes 2x12 Comments cue to stay in pain free range but try to inc ea time Sitting Exercises Cervical Spine AAROM Sitting Exercise Name Extension and rotation Side bilateral Equipment Used towel Reps/Minutes x10 ea Comments Towel assist into direction; pt consistently repositioning Fwd Flexion stretch Sitting Exercise Name lat stretch Side bilateral Equipment Used sitting on stool Reps/Minutes 2x30 Standing Exercises Pec stretch Side bilateral Reps/Minutes 4x20 Comments arm extended next to hips Manual Therapy Treatment Soft Tissue Mobilization Cervical Spine Body Location B UT, LS, SCM, suboccipitals Mobilization Type Myofascial Release,Sustained Pressure Intensity/Depth Superficial Body Position Hooklying Comments Pt with spasm in suboccipitals with sustained pressure; able to promote muscle relaxation. Joint Mobilizations Scapulothoracic Direction M/L, protract/retract, elev/ dep Grade II Body Position Sidelying Reps/Duration 2x30 Comments PROM > AAROM Manual Traction Cervical Spine Body Position Hooklying Reps/Duration 3 min Comments Pt reports relief and gentle stretch of neck extensors Manual Techniques PROM Body Location B UT, SCM, LS Body Position Hooklying Reps/Duration 4x30 ea Comments R more limited than L; reports improvement in mobility symptoms Neuro Re-Education Treatment Movement Re-Education Movement Re-education Activities 1. Cervical Retraction: Pt with forward head posture. To promote better spinal alignment, encourage deep neck flexor activation, and to decreased overactivation of cervical extensors. PT verbally cueing for active chin tuck during retraction. 2x10x5 2. Scapular retraction: Pt with limited scapular retraction; he has difficulty with performing retraction in sitting d/t pain. He also demos decreased scapular motion with B scapula remaining protracted. PT manually facilitating scapular retraction, tapping rhomboid muscles; also providing verbal cues for isometric contraction. L scapular control is better than R. Performed in sidelying x5 min ea side, sitting 1x8 PT-OP-T Assessment and Plan Start: 03/02/23 16:12 Freq: Status: Active Protocol: Document 03/04/23 15:33 NM (Rec: 03/04/23 15:56 NM [id number]) Physical Therapy Assessment Impairments Impairments Activity Tolerance,Functional Activities,Functional Mobility ,Pain,Posture,ROM,Soft Tissue Mobility,Strength Goals Eight Impairment ROM Impairment Global trunk ROM limited Short Term Goal (STG) Pt will improve global trunk ROM by at least 10 dg to demonstrate improved trunk mobility for strength and postural stability. STG Duration 6 visits Assistant Secretary Goal (LTG) Pt will improve global trunk ROM by at least 15 dg to demonstrate improved trunk mobility for strength and postural stability. LTG Duration 12 visits Seven Impairment compliance, function, strength Short Term Goal (STG) Pt will report compliance with HEP at least 3x/wk to maximize gains made during PT sessions. STG Duration 6 visits Assistant Secretary Goal (LTG) Pt will report and maintain compliance with HEP at least 3x/wk to demonstrate independence and maintain gains after discharge. LTG Duration 12 visits Six Impairment Function Impairment NDI 21/50 Short Term Goal (STG) Pt will improve NDI score by at least 7 points in order to demonstrate better tolerance for activity. STG Duration 6 visits Assistant Secretary Goal (LTG) Pt will improve NDI score by at least 14 points (MCID) in order to demonstrate better tolerance for activity. LTG Duration 12 visits Five Impairment function Impairment Pt reports unable to lift more than 20# due to pain Short Term Goal (STG) Pt will be able to lift at least 25# with 2/10 or less neck/back pain to demo improved activity tolerance and to return to PLOF. STG Duration 6 visits [facility] Goal (LTG) Pt will be able to lift at least 40# (average windshield weight) with 2/10 or less neck /back pain to demo improved activity tolerance to return to PLOF. LTG Duration 12 visits Four Impairment Endurance, stability Impairment Deep Neck Flexor Endurance score 5 seconds Short Term Goal (STG) Pt's deep neck flexor endurance test will improve to at least 20 seconds in order to demonstrate improved cervical spine muscle endurance and strength. STG Duration 6 visits [facility] Goal (LTG) Pt's deep neck flexor endurance test will improve to at least 38 seconds (gender norm) in order to demonstrate improved cervical spine muscle endurance and strength. LTG Duration 12 visits Three Impairment strength Impairment Cervical spine strength B lateral flexion and rotation 3 +/5 Short Term Goal (STG) Pt will increase B cervical spine lateral flexion and rotation muscle test to at least 4-/5 to demonstrate improved strength and stability to return to PLOF. STG Duration 6 visits [facility] Goal (LTG) Pt will increase B cervical spine lateral flexion and rotation muscle test to at least 4/5 to demonstrate improve strength and stability to return to PLOF. LTG Duration 12 visits Two Impairment ROM Impairment Cervical spine rotation ROM limited Short Term Goal (STG) Pt will increase cervical spine rotation ROM by at least 15 deg bilaterally for improved visual scanning during driving. STG Duration 6 visits [facility] Goal (LTG) Pt cervical spine rotation ROM will be within 10 deg of each other bilaterally for improved visual scanning during driving. LTG Duration 12 visits One Impairment ROM Impairment Cervical spine flex ROM 15 deg , ext ROM 30 deg Short Term Goal (STG) Pt will increase cervical spine sagittal ROM by at least 15 deg in ea direction to improve mobility to PLOF. STG Duration 6 visits [facility] Goal (LTG) Pt will increase cervical spine sagittal ROM by at least 25 deg in ea direction to improve mobility to PLOF. LTG Duration 12 visits Assessment Summary Assessment Pt tolerated treatment fair. Tmt focus on initiating gentle mobility of C/T spines. Pt able to tolerate towel AAROM of C spine but frequently repositions himself and self- manipulates his spine. Tolerated mobility of T spine better with open books, able to move into greater ROM with repetition. Pt is most limited by pain in his scapular retractors, which limits his scapular motion. PT manually facilitated retraction primarily for postural re- education and gentle muscle re -education/strengthening. Manual tx to decrease soft tissue tightness and encourage better scapular motion in different planes; pt tolerated PROM stretching and traction better. Pt issued HEP for cervical/scapular retraction, open books, pec stretch. Pt would benefit from skilled PT to address impairments in mobility, strength, posture, and activity tolerance. Physical Therapy Plan Frequency and Duration Frequency of Treatment 1-2x/wk, 12 visits Duration of treatment (weeks) 8 Plan of Care Start Date 03/02/23 Plan of Care End Date 04/20/23 Therapeutic Interventions Therapeutic Interventions Home Exercise Program,Joint Mobilizations,Manual Therapy, Neuromuscular Re-education, Patient/Caregiver Education, Self-Care/Home Management,Soft Tissue Mobilization, Therapeutic Activities, Therapeutic Exercises Modalities Cold Pack/Ice Massage,Electric Stimulation,Hot Packs, Iontophoresis,Ultrasound Next Visit Focus/Plan Next Note Type Treatment Note Next Visit Plan Scapular mobilizations. Scap retraction, gentle mobility and strengthening initiate. Continue with manual tx
--- NOTE | 2023-03-07 15:27 | PT.OTN ---
Current Diagnoses Strain of muscle, fascia and tendon at neck level, subsequent encounter (03/07/23) Strain of muscle and tendon of back wall of thorax, initial encounter (03/07/23) Physical Therapy Treatment Note PT-OP-A Visit Information Start: 03/02/23 16:12 Freq: Status: Active Protocol: Document 03/07/23 14:32 NM (Rec: 03/07/23 15:27 NM [id number]) Out-Patient Physical Therapy Visit Information Visit Information Visit Type Treatment Note Visit Note 06/27 Visit Start Time 14:30 Visit Stop Time 15:20 Total Visit Minutes 50 Visit Number 06/27 Evaluation Information Evaluation Date 03/02/23 PT-OP-B Current Condition Start: 03/02/23 16:12 Freq: Status: Active Protocol: Document 03/02/23 16:13 NM (Rec: 03/02/23 16:43 NM [id number]) Current Condition History of Current Condition Onset Date 01/19/23 Current Complaints neck and thoracic stiffness/ pain, muscle tightness, pressure in spine History of Current Condition Pt presents to clinic with cervical and thoracic pain beginning on 01/19/23 when pt was attempting set a windshield into a large car alone. He reports feeling something (cannot elaborate) in his R mid back when lifting the windshield and placing it in the car, but was not able to stop work due to a busy schedule. The next day his neck/back pain worsened and has not relented. The pain is most pronounced between his R scapula and spine, but he also has tenderness on the back of his head/neck. Symptoms also include neck/mid back stiffness along with tight muscles of the neck and between shoulder blades. He has been unable to work since 01/21/23. Pt had a previous shoulder surgery (biceps tendon/labrum repair) and had returned to work for about 6-7 months when the injury occurred. Treatment Goals Patient/Caregiver Goals Return to work, decrease pain Prior Functional Status Baseline Function- ADL's Independent Baseline Function- Mobility Independent Baseline Function- Work/School Able to perform most of job functions, has a trainee to help. He was completing a work conditioning program for prior shoulder surgery but did not complete program Current Functional Impairments (Reported) Functional Limitations- ADL's Able to perform ADLs with assistance due to pain Functional Limitations- Mobility/Gait Pain with movement (standing, walking) and sustained postures (sitting, standing) Functional Limitations- Work/School Currently unable to work due to pain PT-OP-C Subjective Start: 03/02/23 16:12 Freq: Status: Active Protocol: Document 03/07/23 14:32 NM (Rec: 03/07/23 15:27 NM [id number]) OP-PT Subjective Patient Comments Patient Comments Pt present to clinic with 5/10 mid back pain. He does not have any neck pain but does have some stiffness. He states that he did not sleep well last night; He reports that he is doing his exercises. PT-OP-E Functional Tests Start: 03/02/23 16:12 Freq: Status: Active Protocol: Document 03/02/23 16:13 NM (Rec: 03/02/23 16:43 NM [id number]) Functional Tests Other Deep Neck Flexor Endurance Test Score 5 seconds (norm = 38 seconds) Comment Supine with neck in cervical retraction and neck flexion off table PT-OP-F Manual Assessment Start: 03/02/23 16:12 Freq: Status: Active Protocol: Document 03/02/23 16:13 NM (Rec: 03/02/23 16:43 NM [id number]) Manual Assessments Soft Tissue Assessment Soft Tissue Mobility Assessment Pt able to tolerate moderate intensity soft tissue assessment. Demos decreased soft tissue mobility of R upper trapezius, R SCM, B rhomboids, and B rotator cuff muscles. Joint Mobility Assessment Joint Mobility Assessment P-A springing of cervical and thoracic spinous processes have normal segmental mobility . Pt reports symptom relief with assessment. Decreased lower cervical spine mobility during L>R side glides, no pain or symptom provocation. Thoracic rib mobility and transverse process segmental mobility normal, as well; no pain or symptom provocation. PT-OP-G Mobility & Gait Start: 03/02/23 16:12 Freq: Status: Active Protocol: Document 03/02/23 16:13 NM (Rec: 03/02/23 16:43 NM [id number]) OP Gait Assessment Gait Gait Assistance Required: Independent PT-OP-H Neuro Start: 03/02/23 16:12 Freq: Status: Active Protocol: Document 03/02/23 16:13 NM (Rec: 03/02/23 16:43 NM [id number]) Sensation Evaluation Gross Sensation Gross Sensation WNL Comments Summary Comments Cervical, UE, thoracic dermatomes intact to light touch sensation bilaterally. PT-OP-J Posture/Palpation/Skin Start: 03/02/23 16:12 Freq: Status: Active Protocol: Document 03/02/23 16:13 NM (Rec: 03/02/23 16:43 NM [id number]) Posture Evaluation Position Standing Evaluation View Lateral Head/C-Spine Posture Forward Head T-Spine Posture Increased Kyphosis L-Spine Posture Decreased Lordosis Shoulder Posture (R) Elevated Scapula Posture (L) Elevated,(R) Elevated,(R) Tipped Arm Posture (L) Externally Rotated,(R) Externally Rotated Pelvis Posture Posterior Tilted Weight Distribution Balanced Hip Posture (L) Externally Rotated,(R) Externally Rotated Palpation Assessment Location Thoracic Spine Palpation Location Bilateral: Rhomboids, Mid- lower Trapezius, periscapular muscles Palpation Findings Soft Tissue Tightness,Muscle Guarding,Tenderness Palpation Details R Rhomboid more tender to palpation than L Cervical Spine Palpation Location Bilateral: suboccipitals, Upper trapezius, paraspinals, SCM, LS Palpation Findings Soft Tissue Tightness,Spasm, Muscle Guarding,Tenderness Palpation Details Spasm in B suboccipitals; tenderness in R upper trap/SCM - limiting mobility PT-OP-K Range of Motion Start: 03/02/23 16:12 Freq: Status: Active Protocol: Document 03/02/23 16:13 NM (Rec: 03/02/23 16:43 NM [id number]) Cervical Spine Range of Motion Cervical Spine Active Degrees Testing Position Sitting Flexion 15 Extension 30 Rotation Left 40 Rotation Right 64 Lateral Flexion Left 30 Lateral Flexion Right 25 ROM Limitations Soft Tissue Tightness,Pain Comments Reports pressure in spine with cervical extension; pain medial to R scapula with B rotation Thoracic Spine ROM: Flex= 30 deg Ext = 0 deg L lateral flex = 15 deg R lateral flex = 20 deg L rotation = 7 cm R rotation = 9 cm Reports pain medial to R scapula with B rotation, L lateral flex PT-OP-L Special Tests Start: 03/02/23 16:12 Freq: Status: Active Protocol: Document 03/02/23 16:13 NM (Rec: 03/02/23 16:43 NM [id number]) Special Tests Cervical Spine Special Tests Transverse Ligament Test Results negative Comments no excessive motion Alar Ligament Test Results negative Comments no excessive motion in B lateral flexion or rotation Traction Test Results positive Comments relieves symptoms PT-OP-M Strength Start: 03/02/23 16:12 Freq: Status: Active Protocol: Document 03/02/23 16:13 NM (Rec: 03/02/23 16:43 NM [id number]) Cervical Spine Strength Cervical Spine Manual Muscle Testing Testing Position Sitting Flexion (C1-2) 4 Good Extension 4 Good Rotation Left 3+ Fair+ Rotation Right 3+ Fair+ Lateral Flexion Left (C3) 3+ Fair+ Lateral Flexion Right (C3) 3+ Fair+ Comments Pain medial to R scapula with resisted lateral flexion, in R SCM with rotation Trunk Strength Trunk Manual Muscle Testing Testing Position Sitting Flexion 4- Good- Extension 3+ Fair+ Rotation Left 4- Good- Rotation Right 4- Good- Lateral Flexion Left 4- Good- Lateral Flexion Right 4- Good- Comments B pain medial to B scapulae reproduced with lateral flexion Scapula Strength Scapula Manual Muscle Testing Left Elevation (C4) 4 Good Adduction 3+ Fair+ Abduction 4 Good Depression 4- Good- Comments Demos good neuromuscular control and AROM, no symptoms reported Serratus Anterior = 4 Upper trapezius = 4 Middle trapezius = 3+ Lower trapezius = 4- Rhomboids = 3+ Levator scapula = 4- Right Elevation (C4) 4 Good Adduction 3+ Fair+ Abduction 3+ Fair+ Depression 4- Good- Comments Demos limited AROM during elevation/depression, medial/ lateral glides; poor neuromuscular control and attempts to compensate with shoulder flexors. Serratus Anterior = 3+ Upper trapezius = 4 Middle trapezius = 3+ Lower trapezius = 4- Rhomboids = 3+ Levator scapula = 4- PT-OP-Q Treatments Start: 03/04/23 15:33 Freq: Status: Active Protocol: Document 03/07/23 14:32 NM (Rec: 03/07/23 15:27 NM [id number]) Cardio Equipment Upper Body Ergometer (UBE) Duration (Minutes) 6 RPM 100 Other 3min fwd, 3 min bwd for reciprocal thoracic mobility Therapeutic Exercises Supine Exercises Pec stretch Supine Exercise Name foam roller Reps/Minutes 60 Comments able to tolerate today Sitting Exercises C Spine stretching Sitting Exercise Name UT/LS/SCM Side bilateral Reps/Minutes 2x30 ea Cervical Spine AAROM Sitting Exercise Name Extension and rotation Side bilateral Equipment Used hands Reps/Minutes 10x5 ea Comments pt continues to reposition but improved tolerance today Other Exercises Thoracic Rotation Other Exercise Name 1/2 kneel Side bilateral Reps/Minutes 2x15 Comments does not hurt shldr Manual Therapy Treatment Soft Tissue Mobilization Thoracic Spine Body Location B Rhomboids Mobilization Type Myofascial Release,Sustained Pressure,Trigger Point Release Intensity/Depth Moderate Body Position Prone Comments Trigger point release at superior angle of scapula bilaterally, R>L. Reports improvement in symptoms with soft tissue of B rhomboids, R more tender than L. Cervical Spine Body Location B UT, LS, SCM, suboccipitals Mobilization Type Myofascial Release,Sustained Pressure Intensity/Depth Moderate Body Position Hooklying Comments Pt with mild spasm in suboccipitals with sustained pressure; able to promote muscle relaxation. Manual Traction Cervical Spine Body Position Hooklying Reps/Duration 2 min Comments Pt reports relief and gentle stretch of neck extensors Neuro Re-Education Treatment Movement Re-Education Movement Re-education Activities 1. Cervical Retraction: Pt with forward head posture. To promote better spinal alignment, encourage deep neck flexor activation, and to decreased overactivation of cervical extensors. PT verbally cueing for active chin tuck during retraction. 2x10x5 2. Scapular retraction: Pt with limited scapular retraction; he has difficulty with performing retraction in sitting d/t pain. He also demos decreased scapular motion with B scapula remaining protracted. PT manually facilitating scapular retraction, tapping rhomboid muscles; also providing verbal cues for isometric contraction. L scapular control is better than R. Performed in sidelying x5 min ea side, sitting 1x8 Other Activities Cervical Spine Isometrics Details flex, ext, B SB, B rot Reps/Duration 10x5 ea Comments Pt performing about 25% resistance in global cervical spine directions to facilitate improved muscle activation for postural re-education and cervical spine stability. PT-OP-T Assessment and Plan Start: 03/02/23 16:12 Freq: Status: Active Protocol: Document 03/07/23 14:32 NM (Rec: 03/07/23 15:27 NM [id number]) Physical Therapy Assessment Impairments Impairments Activity Tolerance,Functional Activities,Functional Mobility ,Pain,Posture,ROM,Soft Tissue Mobility,Strength Goals Eight Impairment ROM Impairment Global trunk ROM limited Short Term Goal (STG) Pt will improve global trunk ROM by at least 10 dg to demonstrate improved trunk mobility for strength and postural stability. STG Duration 6 visits Top Closer Goal (LTG) Pt will improve global trunk ROM by at least 15 dg to demonstrate improved trunk mobility for strength and postural stability. LTG Duration 12 visits Seven Impairment compliance, function, strength Short Term Goal (STG) Pt will report compliance with HEP at least 3x/wk to maximize gains made during PT sessions. STG Duration 6 visits Top Closer Goal (LTG) Pt will report and maintain compliance with HEP at least 3x/wk to demonstrate independence and maintain gains after discharge. LTG Duration 12 visits Six Impairment Function Impairment NDI 21/50 Short Term Goal (STG) Pt will improve NDI score by at least 7 points in order to demonstrate better tolerance for activity. STG Duration 6 visits Top Closer Goal (LTG) Pt will improve NDI score by at least 14 points (MCID) in order to demonstrate better tolerance for activity. LTG Duration 12 visits Five Impairment function Impairment Pt reports unable to lift more than 20# due to pain Short Term Goal (STG) Pt will be able to lift at least 25# with 2/10 or less neck/back pain to demo improved activity tolerance and to return to PLOF. STG Duration 6 visits Top Closer Goal (LTG) Pt will be able to lift at least 40# (average windshield weight) with 2/10 or less neck /back pain to demo improved activity tolerance to return to PLOF. LTG Duration 12 visits Four Impairment Endurance, stability Impairment Deep Neck Flexor Endurance score 5 seconds Short Term Goal (STG) Pt's deep neck flexor endurance test will improve to at least 20 seconds in order to demonstrate improved cervical spine muscle endurance and strength. STG Duration 6 visits Top Closer Goal (LTG) Pt's deep neck flexor endurance test will improve to at least 38 seconds (gender norm) in order to demonstrate improved cervical spine muscle endurance and strength. LTG Duration 12 visits Three Impairment strength Impairment Cervical spine strength B lateral flexion and rotation 3 +/5 Short Term Goal (STG) Pt will increase B cervical spine lateral flexion and rotation muscle test to at least 4-/5 to demonstrate improved strength and stability to return to PLOF. STG Duration 6 visits Alf Goal (LTG) Pt will increase B cervical spine lateral flexion and rotation muscle test to at least 4/5 to demonstrate improve strength and stability to return to PLOF. LTG Duration 12 visits Two Impairment ROM Impairment Cervical spine rotation ROM limited Short Term Goal (STG) Pt will increase cervical spine rotation ROM by at least 15 deg bilaterally for improved visual scanning during driving. STG Duration 6 visits Alf Goal (LTG) Pt cervical spine rotation ROM will be within 10 deg of each other bilaterally for improved visual scanning during driving. LTG Duration 12 visits One Impairment ROM Impairment Cervical spine flex ROM 15 deg , ext ROM 30 deg Short Term Goal (STG) Pt will increase cervical spine sagittal ROM by at least 15 deg in ea direction to improve mobility to PLOF. STG Duration 6 visits Top Closer Goal (LTG) Pt will increase cervical spine sagittal ROM by at least 25 deg in ea direction to improve mobility to PLOF. LTG Duration 12 visits Assessment Summary Assessment Pt tolerated treatment well today. He demonstrated improved tolerance for scapular retractions today and greater scapular movement. Initiated cervical spine AROM and gentle cervical spine isometrics. Changed from supine open books to half kneel thoracic rotation, which pt tolerated better on the shoulder. Manual tmt focused on decreasing pain and improving soft tissue mobility with motion in the C/T spines . Pt continues to have at least 5/10 pain, which is limiting exercise progression and overall mobility. HEP updated to include c spine lola and stretches, thoracic extension ROM. Pt would benefit from continued cervical spine and thoracic spine strengthening, mobility, endurance, and posture re- education to return to PLOF and improve activity tolerance . Physical Therapy Plan Frequency and Duration Frequency of Treatment 1-2x/wk, 12 visits Duration of treatment (weeks) 8 Plan of Care Start Date 03/02/23 Plan of Care End Date 04/20/23 Therapeutic Interventions Therapeutic Interventions Home Exercise Program,Joint Mobilizations,Manual Therapy, Neuromuscular Re-education, Patient/Caregiver Education, Self-Care/Home Management,Soft Tissue Mobilization, Therapeutic Activities, Therapeutic Exercises Modalities Cold Pack/Ice Massage,Electric Stimulation,Hot Packs, Iontophoresis,Ultrasound Next Visit Focus/Plan Next Note Type Treatment Note Next Visit Plan Continue with AAROM>AROM for cervical and thoracic spine. Begin isometric strengthening. Continue manual tx
--- NOTE | 2023-03-14 15:20 | PT.OTN ---
Current Diagnoses Strain of muscle, fascia and tendon at neck level, subsequent encounter (03/14/23) Strain of muscle and tendon of back wall of thorax, initial encounter (03/14/23) Physical Therapy Treatment Note PT-OP-A Visit Information Start: 03/02/23 16:12 Freq: Status: Active Protocol: Document 03/14/23 14:37 SP (Rec: 03/14/23 15:47 SP [id number]) Out-Patient Physical Therapy Visit Information Visit Information Visit Type Treatment Note Visit Note 07/28 Visit Start Time 14:37 Visit Stop Time 15:20 Total Visit Minutes 43 Visit Number 07/28 Number of COPYRIGHT CLERK Visits 1 Evaluation Information Evaluation Date 03/02/23 PT-OP-B Current Condition Start: 03/02/23 16:12 Freq: Status: Active Protocol: Document 03/02/23 16:13 NM (Rec: 03/02/23 16:43 NM [id number]) Current Condition History of Current Condition Onset Date 01/19/23 Current Complaints neck and thoracic stiffness/ pain, muscle tightness, pressure in spine History of Current Condition Pt presents to clinic with cervical and thoracic pain beginning on 01/19/23 when pt was attempting set a windshield into a large car alone. He reports feeling something (cannot elaborate) in his R mid back when lifting the windshield and placing it in the car, but was not able to stop work due to a busy schedule. The next day his neck/back pain worsened and has not relented. The pain is most pronounced between his R scapula and spine, but he also has tenderness on the back of his head/neck. Symptoms also include neck/mid back stiffness along with tight muscles of the neck and between shoulder blades. He has been unable to work since 01/21/23. Pt had a previous shoulder surgery (biceps tendon/labrum repair) and had returned to work for about 6-7 months when the injury occurred. Treatment Goals Patient/Caregiver Goals Return to work, decrease pain Prior Functional Status Baseline Function- ADL's Independent Baseline Function- Mobility Independent Baseline Function- Work/School Able to perform most of job functions, has a trainee to help. He was completing a work conditioning program for prior shoulder surgery but did not complete program Current Functional Impairments (Reported) Functional Limitations- ADL's Able to perform ADLs with assistance due to pain Functional Limitations- Mobility/Gait Pain with movement (standing, walking) and sustained postures (sitting, standing) Functional Limitations- Work/School Currently unable to work due to pain PT-OP-C Subjective Start: 03/02/23 16:12 Freq: Status: Active Protocol: Document 03/14/23 14:37 SP (Rec: 03/14/23 15:47 SP [id number]) OP-PT Subjective Patient Comments Patient Comments Pt reports sore/little strain feeling in low back since trying to get xmas items off shelf. Neck stiff past few days. PT-OP-E Functional Tests Start: 03/02/23 16:12 Freq: Status: Active Protocol: Document 03/02/23 16:13 NM (Rec: 03/02/23 16:43 NM [id number]) Functional Tests Other Deep Neck Flexor Endurance Test Score 5 seconds (norm = 38 seconds) Comment Supine with neck in cervical retraction and neck flexion off table PT-OP-F Manual Assessment Start: 03/02/23 16:12 Freq: Status: Active Protocol: Document 03/02/23 16:13 NM (Rec: 03/02/23 16:43 NM [id number]) Manual Assessments Soft Tissue Assessment Soft Tissue Mobility Assessment Pt able to tolerate moderate intensity soft tissue assessment. Demos decreased soft tissue mobility of R upper trapezius, R SCM, B rhomboids, and B rotator cuff muscles. Joint Mobility Assessment Joint Mobility Assessment P-A springing of cervical and thoracic spinous processes have normal segmental mobility . Pt reports symptom relief with assessment. Decreased lower cervical spine mobility during L>R side glides, no pain or symptom provocation. Thoracic rib mobility and transverse process segmental mobility normal, as well; no pain or symptom provocation. PT-OP-G Mobility & Gait Start: 03/02/23 16:12 Freq: Status: Active Protocol: Document 03/02/23 16:13 NM (Rec: 03/02/23 16:43 NM [id number]) OP Gait Assessment Gait Gait Assistance Required: Independent PT-OP-H Neuro Start: 03/02/23 16:12 Freq: Status: Active Protocol: Document 03/02/23 16:13 NM (Rec: 03/02/23 16:43 NM [id number]) Sensation Evaluation Gross Sensation Gross Sensation WNL Comments Summary Comments Cervical, UE, thoracic dermatomes intact to light touch sensation bilaterally. PT-OP-J Posture/Palpation/Skin Start: 03/02/23 16:12 Freq: Status: Active Protocol: Document 03/02/23 16:13 NM (Rec: 03/02/23 16:43 NM [id number]) Posture Evaluation Position Standing Evaluation View Lateral Head/C-Spine Posture Forward Head T-Spine Posture Increased Kyphosis L-Spine Posture Decreased Lordosis Shoulder Posture (R) Elevated Scapula Posture (L) Elevated,(R) Elevated,(R) Tipped Arm Posture (L) Externally Rotated,(R) Externally Rotated Pelvis Posture Posterior Tilted Weight Distribution Balanced Hip Posture (L) Externally Rotated,(R) Externally Rotated Palpation Assessment Location Thoracic Spine Palpation Location Bilateral: Rhomboids, Mid- lower Trapezius, periscapular muscles Palpation Findings Soft Tissue Tightness,Muscle Guarding,Tenderness Palpation Details R Rhomboid more tender to palpation than L Cervical Spine Palpation Location Bilateral: suboccipitals, Upper trapezius, paraspinals, SCM, LS Palpation Findings Soft Tissue Tightness,Spasm, Muscle Guarding,Tenderness Palpation Details Spasm in B suboccipitals; tenderness in R upper trap/SCM - limiting mobility PT-OP-K Range of Motion Start: 03/02/23 16:12 Freq: Status: Active Protocol: Document 03/02/23 16:13 NM (Rec: 03/02/23 16:43 NM [id number]) Cervical Spine Range of Motion Cervical Spine Active Degrees Testing Position Sitting Flexion 15 Extension 30 Rotation Left 40 Rotation Right 64 Lateral Flexion Left 30 Lateral Flexion Right 25 ROM Limitations Soft Tissue Tightness,Pain Comments Reports pressure in spine with cervical extension; pain medial to R scapula with B rotation Thoracic Spine ROM: Flex= 30 deg Ext = 0 deg L lateral flex = 15 deg R lateral flex = 20 deg L rotation = 7 cm R rotation = 9 cm Reports pain medial to R scapula with B rotation, L lateral flex PT-OP-L Special Tests Start: 03/02/23 16:12 Freq: Status: Active Protocol: Document 03/02/23 16:13 NM (Rec: 03/02/23 16:43 NM [id number]) Special Tests Cervical Spine Special Tests Transverse Ligament Test Results negative Comments no excessive motion Alar Ligament Test Results negative Comments no excessive motion in B lateral flexion or rotation Traction Test Results positive Comments relieves symptoms PT-OP-M Strength Start: 03/02/23 16:12 Freq: Status: Active Protocol: Document 03/02/23 16:13 NM (Rec: 03/02/23 16:43 NM [id number]) Cervical Spine Strength Cervical Spine Manual Muscle Testing Testing Position Sitting Flexion (C1-2) 4 Good Extension 4 Good Rotation Left 3+ Fair+ Rotation Right 3+ Fair+ Lateral Flexion Left (C3) 3+ Fair+ Lateral Flexion Right (C3) 3+ Fair+ Comments Pain medial to R scapula with resisted lateral flexion, in R SCM with rotation Trunk Strength Trunk Manual Muscle Testing Testing Position Sitting Flexion 4- Good- Extension 3+ Fair+ Rotation Left 4- Good- Rotation Right 4- Good- Lateral Flexion Left 4- Good- Lateral Flexion Right 4- Good- Comments B pain medial to B scapulae reproduced with lateral flexion Scapula Strength Scapula Manual Muscle Testing Left Elevation (C4) 4 Good Adduction 3+ Fair+ Abduction 4 Good Depression 4- Good- Comments Demos good neuromuscular control and AROM, no symptoms reported Serratus Anterior = 4 Upper trapezius = 4 Middle trapezius = 3+ Lower trapezius = 4- Rhomboids = 3+ Levator scapula = 4- Right Elevation (C4) 4 Good Adduction 3+ Fair+ Abduction 3+ Fair+ Depression 4- Good- Comments Demos limited AROM during elevation/depression, medial/ lateral glides; poor neuromuscular control and attempts to compensate with shoulder flexors. Serratus Anterior = 3+ Upper trapezius = 4 Middle trapezius = 3+ Lower trapezius = 4- Rhomboids = 3+ Levator scapula = 4- PT-OP-Q Treatments Start: 03/04/23 15:33 Freq: Status: Active Protocol: Document 03/14/23 14:37 SP (Rec: 03/14/23 15:47 SP [id number]) Cardio Equipment Upper Body Ergometer (UBE) Duration (Minutes) 6 RPM 100 Seat Position 13 Height 3.5 Other 3min fwd, 3 min bwd for reciprocal thoracic mobility Therapeutic Exercises Supine Exercises LTR Supine Exercise Name in PT (LEs over tball) home knees bent feet on table Side bilateral Resistance reviewed from past HEP Equipment Used UEs behind head, LEs over 55cm tball Reps/Minutes x15 Comments report core shaky last few reps, painfree segmental bridge Supine Exercise Name added to HEP: PPT into bridge Resistance reviewed from past HEP Reps/Minutes x8 reps Comments cued PPT slow lift range painfree, less wobble bug Reps/Minutes 5 Comments irritates R shld- hold 03/14 UE AROM Supine Exercise Name FF, ABD Side bilateral Resistance AROM Equipment Used over foam roller Comments cued TA/neutral spine improved core stabilization Pec stretch Supine Exercise Name foam roller Equipment Used supine over foam roller Reps/Minutes 60 Comments good feedback stretch Sitting Exercises Cervical Spine AAROM Sitting Exercise Name Extension and rotation Side bilateral Resistance AROM Reps/Minutes 10x5 ea Comments improved performance post manual, reports still limited R, less pain 7>3/10 Standing Exercises paloff press Standing Exercise Name added to HEP Side bilateral Resistance Tb #2 orange (aqua green home #2) Reps/Minutes x10 each side Comments cued soft knee, neutral LS/ pelvic tilt, press out chest- painfree Other Exercises Thoracic Rotation Other Exercise Name 1/2 kneel Side bilateral Equipment Used folded yoga pad under knnee Reps/Minutes 2x15 Comments R shld tiring but no pain, good ROM in back reports Manual Therapy Treatment Soft Tissue Mobilization Thoracic Spine Body Location B Rhomboids, ES T3-L3 Mobilization Type Strumming Intensity/Depth Moderate Body Position Prone Comments Reports improvement in symptoms with soft tissue of B rhomboids, R more tender than L. Cervical Spine Body Location B UT, LS, SCM, suboccipitals Mobilization Type Myofascial Release,Sustained Pressure Intensity/Depth Moderate Body Position Hooklying Comments Pt with mild spasm in suboccipitals with sustained pressure; able to promote muscle relaxation. Improved cervical AROM seated post manual reduction pain 7>3/10 in neck Manual Traction Cervical Spine Body Position Hooklying Reps/Duration 2 min Comments Pt reports relief and gentle stretch of neck extensors Manual Techniques PROM Body Location B UT, SCM, LS Body Position Hooklying Reps/Duration 4x30 ea Comments R more limited than L; reports improvement in mobility symptoms PT-OP-T Assessment and Plan Start: 03/02/23 16:12 Freq: Status: Active Protocol: Document 03/14/23 14:37 SP (Rec: 03/14/23 15:47 SP [id number]) Physical Therapy Assessment Goals Eight Impairment ROM Impairment Global trunk ROM limited Short Term Goal (STG) Pt will improve global trunk ROM by at least 10 dg to demonstrate improved trunk mobility for strength and postural stability. STG Duration 6 visits Sponsorship Coordinator Goal (LTG) Pt will improve global trunk ROM by at least 15 dg to demonstrate improved trunk mobility for strength and postural stability. LTG Duration 12 visits Seven Impairment compliance, function, strength Short Term Goal (STG) Pt will report compliance with HEP at least 3x/wk to maximize gains made during PT sessions. STG Duration 6 visits Sponsorship Coordinator Goal (LTG) Pt will report and maintain compliance with HEP at least 3x/wk to demonstrate independence and maintain gains after discharge. LTG Duration 12 visits Six Impairment Function Impairment NDI 21/50 Short Term Goal (STG) Pt will improve NDI score by at least 7 points in order to demonstrate better tolerance for activity. STG Duration 6 visits Residential Goal (LTG) Pt will improve NDI score by at least 14 points (MCID) in order to demonstrate better tolerance for activity. LTG Duration 12 visits Five Impairment function Impairment Pt reports unable to lift more than 20# due to pain Short Term Goal (STG) Pt will be able to lift at least 25# with 2/10 or less neck/back pain to demo improved activity tolerance and to return to PLOF. STG Duration 6 visits Residential Goal (LTG) Pt will be able to lift at least 40# (average windshield weight) with 2/10 or less neck /back pain to demo improved activity tolerance to return to PLOF. LTG Duration 12 visits Four Impairment Endurance, stability Impairment Deep Neck Flexor Endurance score 5 seconds Short Term Goal (STG) Pt's deep neck flexor endurance test will improve to at least 20 seconds in order to demonstrate improved cervical spine muscle endurance and strength. STG Duration 6 visits Residential Goal (LTG) Pt's deep neck flexor endurance test will improve to at least 38 seconds (gender norm) in order to demonstrate improved cervical spine muscle endurance and strength. LTG Duration 12 visits Three Impairment strength Impairment Cervical spine strength B lateral flexion and rotation 3 +/5 Short Term Goal (STG) Pt will increase B cervical spine lateral flexion and rotation muscle test to at least 4-/5 to demonstrate improved strength and stability to return to PLOF. STG Duration 6 visits Residential Goal (LTG) Pt will increase B cervical spine lateral flexion and rotation muscle test to at least 4/5 to demonstrate improve strength and stability to return to PLOF. LTG Duration 12 visits Two Impairment ROM Impairment Cervical spine rotation ROM limited Short Term Goal (STG) Pt will increase cervical spine rotation ROM by at least 15 deg bilaterally for improved visual scanning during driving. STG Duration 6 visits Sponsorship Coordinator Goal (LTG) Pt cervical spine rotation ROM will be within 10 deg of each other bilaterally for improved visual scanning during driving. LTG Duration 12 visits One Impairment ROM Impairment Cervical spine flex ROM 15 deg , ext ROM 30 deg Short Term Goal (STG) Pt will increase cervical spine sagittal ROM by at least 15 deg in ea direction to improve mobility to PLOF. STG Duration 6 visits Sponsorship Coordinator Goal (LTG) Pt will increase cervical spine sagittal ROM by at least 25 deg in ea direction to improve mobility to PLOF. LTG Duration 12 visits Assessment Summary Assessment Pt reported increase cervical ROM, still little limited pain going R end range but reduction in neck 7>3/10 post manual. Pt good core shakiness LTR, had no reports of increased pain during ther ex tx. Physical Therapy Plan Frequency and Duration Frequency of Treatment 1-2x/wk, 12 visits Duration of treatment (weeks) 8 Plan of Care Start Date 03/02/23 Plan of Care End Date 04/20/23 Therapeutic Interventions Therapeutic Interventions Home Exercise Program,Joint Mobilizations,Manual Therapy, Neuromuscular Re-education, Patient/Caregiver Education, Self-Care/Home Management,Soft Tissue Mobilization, Therapeutic Activities, Therapeutic Exercises Modalities Cold Pack/Ice Massage,Electric Stimulation,Hot Packs, Iontophoresis,Ultrasound Next Visit Focus/Plan Next Note Type Treatment Note Next Visit Plan REcheck HEP (prefers HOs for carryover home). POC: Continue with AAROM>AROM for cervical and thoracic spine. Begin isometric strengthening. Continue manual tx
--- NOTE | 2023-03-16 15:15 | PT.OTN ---
Current Diagnoses Strain of muscle, fascia and tendon at neck level, subsequent encounter (03/16/23) Strain of muscle and tendon of back wall of thorax, initial encounter (03/16/23) Physical Therapy Treatment Note PT-OP-A Visit Information Start: 03/02/23 16:12 Freq: Status: Active Protocol: Document 03/16/23 14:36 SP (Rec: 03/16/23 15:45 SP [id number]) Out-Patient Physical Therapy Visit Information Visit Information Visit Type Treatment Note Visit Note 08/27 Visit Start Time 14:36 Visit Stop Time 15:15 Total Visit Minutes 39 Visit Number 08/27 Number of DESIGN CONSULTANT Visits 2 Evaluation Information Evaluation Date 03/02/23 PT-OP-B Current Condition Start: 03/02/23 16:12 Freq: Status: Active Protocol: Document 03/02/23 16:13 NM (Rec: 03/02/23 16:43 NM [id number]) Current Condition History of Current Condition Onset Date 01/19/23 Current Complaints neck and thoracic stiffness/ pain, muscle tightness, pressure in spine History of Current Condition Pt presents to clinic with cervical and thoracic pain beginning on 01/19/23 when pt was attempting set a windshield into a large car alone. He reports feeling something (cannot elaborate) in his R mid back when lifting the windshield and placing it in the car, but was not able to stop work due to a busy schedule. The next day his neck/back pain worsened and has not relented. The pain is most pronounced between his R scapula and spine, but he also has tenderness on the back of his head/neck. Symptoms also include neck/mid back stiffness along with tight muscles of the neck and between shoulder blades. He has been unable to work since 01/21/23. Pt had a previous shoulder surgery (biceps tendon/labrum repair) and had returned to work for about 6-7 months when the injury occurred. Treatment Goals Patient/Caregiver Goals Return to work, decrease pain Prior Functional Status Baseline Function- ADL's Independent Baseline Function- Mobility Independent Baseline Function- Work/School Able to perform most of job functions, has a trainee to help. He was completing a work conditioning program for prior shoulder surgery but did not complete program Current Functional Impairments (Reported) Functional Limitations- ADL's Able to perform ADLs with assistance due to pain Functional Limitations- Mobility/Gait Pain with movement (standing, walking) and sustained postures (sitting, standing) Functional Limitations- Work/School Currently unable to work due to pain PT-OP-C Subjective Start: 03/02/23 16:12 Freq: Status: Active Protocol: Document 03/16/23 14:36 SP (Rec: 03/16/23 15:45 SP [id number]) OP-PT Subjective Patient Comments Patient Comments Pt reports neck felt better for about 2 hrs after tx then started stiffening up. Reports dull ache stiffness post neck and mid back. Low back isn't as bad as last time. PT-OP-E Functional Tests Start: 03/02/23 16:12 Freq: Status: Active Protocol: Document 03/02/23 16:13 NM (Rec: 03/02/23 16:43 NM [id number]) Functional Tests Other Deep Neck Flexor Endurance Test Score 5 seconds (norm = 38 seconds) Comment Supine with neck in cervical retraction and neck flexion off table PT-OP-F Manual Assessment Start: 03/02/23 16:12 Freq: Status: Active Protocol: Document 03/02/23 16:13 NM (Rec: 03/02/23 16:43 NM [id number]) Manual Assessments Soft Tissue Assessment Soft Tissue Mobility Assessment Pt able to tolerate moderate intensity soft tissue assessment. Demos decreased soft tissue mobility of R upper trapezius, R SCM, B rhomboids, and B rotator cuff muscles. Joint Mobility Assessment Joint Mobility Assessment P-A springing of cervical and thoracic spinous processes have normal segmental mobility . Pt reports symptom relief with assessment. Decreased lower cervical spine mobility during L>R side glides, no pain or symptom provocation. Thoracic rib mobility and transverse process segmental mobility normal, as well; no pain or symptom provocation. PT-OP-G Mobility & Gait Start: 03/02/23 16:12 Freq: Status: Active Protocol: Document 03/02/23 16:13 NM (Rec: 03/02/23 16:43 NM [id number]) OP Gait Assessment Gait Gait Assistance Required: Independent PT-OP-H Neuro Start: 03/02/23 16:12 Freq: Status: Active Protocol: Document 03/02/23 16:13 NM (Rec: 03/02/23 16:43 NM [id number]) Sensation Evaluation Gross Sensation Gross Sensation WNL Comments Summary Comments Cervical, UE, thoracic dermatomes intact to light touch sensation bilaterally. PT-OP-J Posture/Palpation/Skin Start: 03/02/23 16:12 Freq: Status: Active Protocol: Document 03/02/23 16:13 NM (Rec: 03/02/23 16:43 NM [id number]) Posture Evaluation Position Standing Evaluation View Lateral Head/C-Spine Posture Forward Head T-Spine Posture Increased Kyphosis L-Spine Posture Decreased Lordosis Shoulder Posture (R) Elevated Scapula Posture (L) Elevated,(R) Elevated,(R) Tipped Arm Posture (L) Externally Rotated,(R) Externally Rotated Pelvis Posture Posterior Tilted Weight Distribution Balanced Hip Posture (L) Externally Rotated,(R) Externally Rotated Palpation Assessment Location Thoracic Spine Palpation Location Bilateral: Rhomboids, Mid- lower Trapezius, periscapular muscles Palpation Findings Soft Tissue Tightness,Muscle Guarding,Tenderness Palpation Details R Rhomboid more tender to palpation than L Cervical Spine Palpation Location Bilateral: suboccipitals, Upper trapezius, paraspinals, SCM, LS Palpation Findings Soft Tissue Tightness,Spasm, Muscle Guarding,Tenderness Palpation Details Spasm in B suboccipitals; tenderness in R upper trap/SCM - limiting mobility PT-OP-K Range of Motion Start: 03/02/23 16:12 Freq: Status: Active Protocol: Document 03/02/23 16:13 NM (Rec: 03/02/23 16:43 NM [id number]) Cervical Spine Range of Motion Cervical Spine Active Degrees Testing Position Sitting Flexion 15 Extension 30 Rotation Left 40 Rotation Right 64 Lateral Flexion Left 30 Lateral Flexion Right 25 ROM Limitations Soft Tissue Tightness,Pain Comments Reports pressure in spine with cervical extension; pain medial to R scapula with B rotation Thoracic Spine ROM: Flex= 30 deg Ext = 0 deg L lateral flex = 15 deg R lateral flex = 20 deg L rotation = 7 cm R rotation = 9 cm Reports pain medial to R scapula with B rotation, L lateral flex PT-OP-L Special Tests Start: 03/02/23 16:12 Freq: Status: Active Protocol: Document 03/02/23 16:13 NM (Rec: 03/02/23 16:43 NM [id number]) Special Tests Cervical Spine Special Tests Transverse Ligament Test Results negative Comments no excessive motion Alar Ligament Test Results negative Comments no excessive motion in B lateral flexion or rotation Traction Test Results positive Comments relieves symptoms PT-OP-M Strength Start: 03/02/23 16:12 Freq: Status: Active Protocol: Document 03/02/23 16:13 NM (Rec: 03/02/23 16:43 NM [id number]) Cervical Spine Strength Cervical Spine Manual Muscle Testing Testing Position Sitting Flexion (C1-2) 4 Good Extension 4 Good Rotation Left 3+ Fair+ Rotation Right 3+ Fair+ Lateral Flexion Left (C3) 3+ Fair+ Lateral Flexion Right (C3) 3+ Fair+ Comments Pain medial to R scapula with resisted lateral flexion, in R SCM with rotation Trunk Strength Trunk Manual Muscle Testing Testing Position Sitting Flexion 4- Good- Extension 3+ Fair+ Rotation Left 4- Good- Rotation Right 4- Good- Lateral Flexion Left 4- Good- Lateral Flexion Right 4- Good- Comments B pain medial to B scapulae reproduced with lateral flexion Scapula Strength Scapula Manual Muscle Testing Left Elevation (C4) 4 Good Adduction 3+ Fair+ Abduction 4 Good Depression 4- Good- Comments Demos good neuromuscular control and AROM, no symptoms reported Serratus Anterior = 4 Upper trapezius = 4 Middle trapezius = 3+ Lower trapezius = 4- Rhomboids = 3+ Levator scapula = 4- Right Elevation (C4) 4 Good Adduction 3+ Fair+ Abduction 3+ Fair+ Depression 4- Good- Comments Demos limited AROM during elevation/depression, medial/ lateral glides; poor neuromuscular control and attempts to compensate with shoulder flexors. Serratus Anterior = 3+ Upper trapezius = 4 Middle trapezius = 3+ Lower trapezius = 4- Rhomboids = 3+ Levator scapula = 4- PT-OP-Q Treatments Start: 03/04/23 15:33 Freq: Status: Active Protocol: Document 03/16/23 14:36 SP (Rec: 03/16/23 15:45 SP [id number]) Therapeutic Exercises Sitting Exercises CS retraction TB Sitting Exercise Name initiated in PT Resistance TB #1 light blue latex Equipment Used seated EO chair Reps/Minutes x10 reps, pause endfeel tolerant range Comments small range- post neck muscle tiring trunk flexion/eccentric ext Sitting Exercise Name initiated in PT Side bilateral Resistance TB #3 green TB Equipment Used rear facing seated on 65cm Tball Reps/Minutes x10 Comments good slow pacing con/ecc, tired /c ES LS tension last 2 reps thoracic rotation TB Sitting Exercise Name initiated in PT Side bilateral Resistance #2 orange TB (arms across chest) Equipment Used seated on 65cm tball Reps/Minutes x10 Comments good feedback TS engagement C Spine stretching Sitting Exercise Name UT/LS/SCM Side bilateral Reps/Minutes 20 ea Comments post resisted CS retraction Standing Exercises squat<> stand OH lift Standing Exercise Name initiated in PT Resistance 65cm tball OH Reps/Minutes x6 reps- trunk started to round 6th rep so stopped Comments cues for hip hinge, elongated neutral spine into flexion paloff press Standing Exercise Name reviewed HEP Side bilateral Resistance Tb #2 orange (aqua green home #2) Reps/Minutes 2x10 each side Comments cued soft knee, neutral LS/ pelvic tilt, press out chest- painfree Other Exercises child's pose, thread needle Other Exercise Name 1. child's pose 2. thread needle Resistance limited R due to R shld Reps/Minutes 30 Comments good feedback LS stretch, limited R flexion and L rotation due to R shld Thoracic Rotation Other Exercise Name 1/2 kneel Side bilateral Equipment Used folded yoga pad under knnee Reps/Minutes 2x15 sets between trunk flexion Comments R shld tiring but no pain, good ROM in back reports Manual Therapy Treatment Soft Tissue Mobilization Thoracic Spine Body Location B Rhomboids, ES T3-L3 Mobilization Type Strumming Intensity/Depth Moderate Body Position Prone Comments Reports improvement in symptoms with soft tissue of B rhomboids, lessen tension between B shoulder blades. Cervical Spine Body Location B UT, LS, SCM, suboccipitals Mobilization Type Myofascial Release,Sustained Pressure Intensity/Depth Moderate Body Position Hooklying Comments Pt with mild spasm in suboccipitals with sustained pressure; able to promote muscle relaxation. Improved cervical AROM seated post manual reduction pain 7>3/10 in neck Joint Mobilizations TS Joint T3-9 Direction PA Grade II Body Position Prone Comments gentle PA with exhale- good response, lessen tension between B shoulder blades. Manual Traction Cervical Spine Body Position Hooklying Reps/Duration 2 min Comments Pt reports relief and gentle stretch of neck extensors PT-OP-T Assessment and Plan Start: 03/02/23 16:12 Freq: Status: Active Protocol: Document 03/16/23 14:36 SP (Rec: 03/16/23 15:45 SP [id number]) Physical Therapy Assessment Goals Eight Impairment ROM Impairment Global trunk ROM limited Short Term Goal (STG) Pt will improve global trunk ROM by at least 10 dg to demonstrate improved trunk mobility for strength and postural stability. STG Duration 6 visits [facility] Goal (LTG) Pt will improve global trunk ROM by at least 15 dg to demonstrate improved trunk mobility for strength and postural stability. LTG Duration 12 visits Seven Impairment compliance, function, strength Short Term Goal (STG) Pt will report compliance with HEP at least 3x/wk to maximize gains made during PT sessions. STG Duration 6 visits [facility] Goal (LTG) Pt will report and maintain compliance with HEP at least 3x/wk to demonstrate independence and maintain gains after discharge. LTG Duration 12 visits Six Impairment Function Impairment NDI 21/50 Short Term Goal (STG) Pt will improve NDI score by at least 7 points in order to demonstrate better tolerance for activity. STG Duration 6 visits [employer] Goal (LTG) Pt will improve NDI score by at least 14 points (MCID) in order to demonstrate better tolerance for activity. LTG Duration 12 visits Five Impairment function Impairment Pt reports unable to lift more than 20# due to pain Short Term Goal (STG) Pt will be able to lift at least 25# with 2/10 or less neck/back pain to demo improved activity tolerance and to return to PLOF. STG Duration 6 visits [facility] Goal (LTG) Pt will be able to lift at least 40# (average windshield weight) with 2/10 or less neck /back pain to demo improved activity tolerance to return to PLOF. LTG Duration 12 visits Four Impairment Endurance, stability Impairment Deep Neck Flexor Endurance score 5 seconds Short Term Goal (STG) Pt's deep neck flexor endurance test will improve to at least 20 seconds in order to demonstrate improved cervical spine muscle endurance and strength. STG Duration 6 visits [facility] Goal (LTG) Pt's deep neck flexor endurance test will improve to at least 38 seconds (gender norm) in order to demonstrate improved cervical spine muscle endurance and strength. LTG Duration 12 visits Three Impairment strength Impairment Cervical spine strength B lateral flexion and rotation 3 +/5 Short Term Goal (STG) Pt will increase B cervical spine lateral flexion and rotation muscle test to at least 4-/5 to demonstrate improved strength and stability to return to PLOF. STG Duration 6 visits [employer] Goal (LTG) Pt will increase B cervical spine lateral flexion and rotation muscle test to at least 4/5 to demonstrate improve strength and stability to return to PLOF. LTG Duration 12 visits Two Impairment ROM Impairment Cervical spine rotation ROM limited Short Term Goal (STG) Pt will increase cervical spine rotation ROM by at least 15 deg bilaterally for improved visual scanning during driving. STG Duration 6 visits [facility] Goal (LTG) Pt cervical spine rotation ROM will be within 10 deg of each other bilaterally for improved visual scanning during driving. LTG Duration 12 visits One Impairment ROM Impairment Cervical spine flex ROM 15 deg , ext ROM 30 deg Short Term Goal (STG) Pt will increase cervical spine sagittal ROM by at least 15 deg in ea direction to improve mobility to PLOF. STG Duration 6 visits [employer] Goal (LTG) Pt will increase cervical spine sagittal ROM by at least 25 deg in ea direction to improve mobility to PLOF. LTG Duration 12 visits Assessment Summary Assessment Pt had good response to manual , able to turn head better. Good tolerance to progress resisted trunk rotation, flexion and CS extension today with reps to tiring response approx 5-10 reps, little LB tension reported but not pain. Pt states benefits lasts for approx 2 hrs post PT tx then neck/back stiffens up. DESIGN CONSULTANT reminded to continue therex home for carryover. Physical Therapy Plan Frequency and Duration Frequency of Treatment 1-2x/wk, 12 visits Duration of treatment (weeks) 8 Plan of Care Start Date 03/02/23 Plan of Care End Date 04/20/23 Therapeutic Interventions Therapeutic Interventions Home Exercise Program,Joint Mobilizations,Manual Therapy, Neuromuscular Re-education, Patient/Caregiver Education, Self-Care/Home Management,Soft Tissue Mobilization, Therapeutic Activities, Therapeutic Exercises Modalities Cold Pack/Ice Massage,Electric Stimulation,Hot Packs, Iontophoresis,Ultrasound Next Visit Focus/Plan Next Note Type Treatment Note Next Visit Plan Response last tx resisted LS flexion/rotation Next tx add: DNF lift in supine toward goal endurance. POC: Continue with AAROM>AROM for cervical and thoracic spine. Begin isometric strengthening. Continue manual tx
--- NOTE | 2023-03-23 14:32 | PT.OTN ---
Current Diagnoses Strain of muscle, fascia and tendon at neck level, subsequent encounter (03/23/23) Physical Therapy Treatment Note PT-OP-A Visit Information Start: 03/02/23 16:12 Freq: Status: Active Protocol: Document 03/23/23 13:49 NM (Rec: 03/23/23 14:32 NM [id number]) Out-Patient Physical Therapy Visit Information Visit Information Visit Type Treatment Note Visit Note 09/27 Visit Start Time 13:47 Visit Stop Time 14:30 Total Visit Minutes 43 Visit Number 09/27 Number of TUBE BENDER HAND Visits 2 Evaluation Information Evaluation Date 03/02/23 PT-OP-B Current Condition Start: 03/02/23 16:12 Freq: Status: Active Protocol: Document 03/02/23 16:13 NM (Rec: 03/02/23 16:43 NM [id number]) Current Condition History of Current Condition Onset Date 01/19/23 Current Complaints neck and thoracic stiffness/ pain, muscle tightness, pressure in spine History of Current Condition Pt presents to clinic with cervical and thoracic pain beginning on 01/19/23 when pt was attempting set a windshield into a large car alone. He reports feeling something (cannot elaborate) in his R mid back when lifting the windshield and placing it in the car, but was not able to stop work due to a busy schedule. The next day his neck/back pain worsened and has not relented. The pain is most pronounced between his R scapula and spine, but he also has tenderness on the back of his head/neck. Symptoms also include neck/mid back stiffness along with tight muscles of the neck and between shoulder blades. He has been unable to work since 01/21/23. Pt had a previous shoulder surgery (biceps tendon/labrum repair) and had returned to work for about 6-7 months when the injury occurred. Treatment Goals Patient/Caregiver Goals Return to work, decrease pain Prior Functional Status Baseline Function- ADL's Independent Baseline Function- Mobility Independent Baseline Function- Work/School Able to perform most of job functions, has a trainee to help. He was completing a work conditioning program for prior shoulder surgery but did not complete program Current Functional Impairments (Reported) Functional Limitations- ADL's Able to perform ADLs with assistance due to pain Functional Limitations- Mobility/Gait Pain with movement (standing, walking) and sustained postures (sitting, standing) Functional Limitations- Work/School Currently unable to work due to pain PT-OP-C Subjective Start: 03/02/23 16:12 Freq: Status: Active Protocol: Document 03/23/23 13:49 NM (Rec: 03/23/23 14:32 NM [id number]) OP-PT Subjective Patient Comments Patient Comments Pt reports that he is having 8 /10 neck pain, which has been occurring for one week. He reports that he has not been able to perform his HEP due to the pain, and he has been having to take tylenol every few hours for the pain. He has a follow up with his doctor on 04/06. PT-OP-E Functional Tests Start: 03/02/23 16:12 Freq: Status: Active Protocol: Document 03/02/23 16:13 NM (Rec: 03/02/23 16:43 NM [id number]) Functional Tests Other Deep Neck Flexor Endurance Test Score 5 seconds (norm = 38 seconds) Comment Supine with neck in cervical retraction and neck flexion off table PT-OP-F Manual Assessment Start: 03/02/23 16:12 Freq: Status: Active Protocol: Document 03/02/23 16:13 NM (Rec: 03/02/23 16:43 NM [id number]) Manual Assessments Soft Tissue Assessment Soft Tissue Mobility Assessment Pt able to tolerate moderate intensity soft tissue assessment. Demos decreased soft tissue mobility of R upper trapezius, R SCM, B rhomboids, and B rotator cuff muscles. Joint Mobility Assessment Joint Mobility Assessment P-A springing of cervical and thoracic spinous processes have normal segmental mobility . Pt reports symptom relief with assessment. Decreased lower cervical spine mobility during L>R side glides, no pain or symptom provocation. Thoracic rib mobility and transverse process segmental mobility normal, as well; no pain or symptom provocation. PT-OP-G Mobility & Gait Start: 03/02/23 16:12 Freq: Status: Active Protocol: Document 03/02/23 16:13 NM (Rec: 03/02/23 16:43 NM [id number]) OP Gait Assessment Gait Gait Assistance Required: Independent PT-OP-H Neuro Start: 03/02/23 16:12 Freq: Status: Active Protocol: Document 03/02/23 16:13 NM (Rec: 03/02/23 16:43 NM [id number]) Sensation Evaluation Gross Sensation Gross Sensation WNL Comments Summary Comments Cervical, UE, thoracic dermatomes intact to light touch sensation bilaterally. PT-OP-J Posture/Palpation/Skin Start: 03/02/23 16:12 Freq: Status: Active Protocol: Document 03/02/23 16:13 NM (Rec: 03/02/23 16:43 NM [id number]) Posture Evaluation Position Standing Evaluation View Lateral Head/C-Spine Posture Forward Head T-Spine Posture Increased Kyphosis L-Spine Posture Decreased Lordosis Shoulder Posture (R) Elevated Scapula Posture (L) Elevated,(R) Elevated,(R) Tipped Arm Posture (L) Externally Rotated,(R) Externally Rotated Pelvis Posture Posterior Tilted Weight Distribution Balanced Hip Posture (L) Externally Rotated,(R) Externally Rotated Palpation Assessment Location Thoracic Spine Palpation Location Bilateral: Rhomboids, Mid- lower Trapezius, periscapular muscles Palpation Findings Soft Tissue Tightness,Muscle Guarding,Tenderness Palpation Details R Rhomboid more tender to palpation than L Cervical Spine Palpation Location Bilateral: suboccipitals, Upper trapezius, paraspinals, SCM, LS Palpation Findings Soft Tissue Tightness,Spasm, Muscle Guarding,Tenderness Palpation Details Spasm in B suboccipitals; tenderness in R upper trap/SCM - limiting mobility PT-OP-K Range of Motion Start: 03/02/23 16:12 Freq: Status: Active Protocol: Document 03/02/23 16:13 NM (Rec: 03/02/23 16:43 NM [id number]) Cervical Spine Range of Motion Cervical Spine Active Degrees Testing Position Sitting Flexion 15 Extension 30 Rotation Left 40 Rotation Right 64 Lateral Flexion Left 30 Lateral Flexion Right 25 ROM Limitations Soft Tissue Tightness,Pain Comments Reports pressure in spine with cervical extension; pain medial to R scapula with B rotation Thoracic Spine ROM: Flex= 30 deg Ext = 0 deg L lateral flex = 15 deg R lateral flex = 20 deg L rotation = 7 cm R rotation = 9 cm Reports pain medial to R scapula with B rotation, L lateral flex PT-OP-L Special Tests Start: 03/02/23 16:12 Freq: Status: Active Protocol: Document 03/02/23 16:13 NM (Rec: 03/02/23 16:43 NM [id number]) Special Tests Cervical Spine Special Tests Transverse Ligament Test Results negative Comments no excessive motion Alar Ligament Test Results negative Comments no excessive motion in B lateral flexion or rotation Traction Test Results positive Comments relieves symptoms PT-OP-M Strength Start: 03/02/23 16:12 Freq: Status: Active Protocol: Document 03/02/23 16:13 NM (Rec: 03/02/23 16:43 NM [id number]) Cervical Spine Strength Cervical Spine Manual Muscle Testing Testing Position Sitting Flexion (C1-2) 4 Good Extension 4 Good Rotation Left 3+ Fair+ Rotation Right 3+ Fair+ Lateral Flexion Left (C3) 3+ Fair+ Lateral Flexion Right (C3) 3+ Fair+ Comments Pain medial to R scapula with resisted lateral flexion, in R SCM with rotation Trunk Strength Trunk Manual Muscle Testing Testing Position Sitting Flexion 4- Good- Extension 3+ Fair+ Rotation Left 4- Good- Rotation Right 4- Good- Lateral Flexion Left 4- Good- Lateral Flexion Right 4- Good- Comments B pain medial to B scapulae reproduced with lateral flexion Scapula Strength Scapula Manual Muscle Testing Left Elevation (C4) 4 Good Adduction 3+ Fair+ Abduction 4 Good Depression 4- Good- Comments Demos good neuromuscular control and AROM, no symptoms reported Serratus Anterior = 4 Upper trapezius = 4 Middle trapezius = 3+ Lower trapezius = 4- Rhomboids = 3+ Levator scapula = 4- Right Elevation (C4) 4 Good Adduction 3+ Fair+ Abduction 3+ Fair+ Depression 4- Good- Comments Demos limited AROM during elevation/depression, medial/ lateral glides; poor neuromuscular control and attempts to compensate with shoulder flexors. Serratus Anterior = 3+ Upper trapezius = 4 Middle trapezius = 3+ Lower trapezius = 4- Rhomboids = 3+ Levator scapula = 4- PT-OP-Q Treatments Start: 03/04/23 15:33 Freq: Status: Active Protocol: Document 03/23/23 13:49 NM (Rec: 03/23/23 14:32 NM [id number]) Therapeutic Exercises Supine Exercises Thoracic ext Supine Exercise Name 1/2 foam roller Side bilateral Reps/Minutes 60 Comments good stretch Pec stretch Supine Exercise Name 1/2 foam roller Equipment Used supine over foam roller Reps/Minutes 60 Comments arms in 90 deg T position, good feedback stretch Prone Exercises IYT's Prone Exercise Name for periscap strengthening Side bilateral Equipment Used green SB Reps/Minutes 2x10 ea Comments cues for shoulder retraction, scap setting Sidelying Exercises Open Books Sidelying Exercise Name regressed to open book today due to stiffness, inc neck pain Side bilateral Reps/Minutes 1x15 Comments cues for inc ROM as tolerated Sitting Exercises trunk flexion/eccentric ext Sitting Exercise Name initiated in PT Side bilateral Resistance TB #3 green TB Equipment Used rear facing seated on 65cm Tball Reps/Minutes x10 Comments good slow pacing con/ecc, tired /c ES LS tension last 2 reps Standing Exercises Rows Standing Exercise Name 1. mid row, 2. high row Side bilateral Resistance orange tb lvl 2 Reps/Minutes 2x15 ea Comments focus on scap retract motion, not strength right now squat<> stand OH lift Standing Exercise Name d/c for now Other Exercises Thoracic Rotation Other Exercise Name did open books b/c inc neck pain today Manual Therapy Treatment Soft Tissue Mobilization Thoracic Spine Body Location B Rhomboids, ES T3-L3 Mobilization Type Strumming Intensity/Depth Moderate Body Position Prone Comments Reports improvement in symptoms with soft tissue of B rhomboids, lessen tension between B shoulder blades. Cervical Spine Body Location B UT, LS, SCM, suboccipitals Mobilization Type Myofascial Release,Sustained Pressure Intensity/Depth Moderate Body Position Hooklying Comments Pt with mild spasm in suboccipitals with sustained pressure; able to promote muscle relaxation. Improved cervical AROM seated post manual reduction pain 7>3/10 in neck Joint Mobilizations C spine Joint lower Cspine (C4-C7) Direction L>R, R>L Grade II Body Position Hooklying Reps/Duration 30x4 Comments to decrease c spine pain PT-OP-T Assessment and Plan Start: 03/02/23 16:12 Freq: Status: Active Protocol: Document 03/23/23 13:49 NM (Rec: 03/23/23 14:32 NM [id number]) Physical Therapy Assessment Rehab Potential Rehabilitation Potential Good Evaluation Complexity Number of Personal Factors/Comorbidities 1-2 Number of Body Systems Impaired 1-2 Clinical Presentation at Evaluation Stable Impairments Impairments Activity Tolerance,Functional Activities,Functional Mobility ,Pain,Posture,ROM,Soft Tissue Mobility,Strength Goals Eight Impairment ROM Impairment Global trunk ROM limited Short Term Goal (STG) Pt will improve global trunk ROM by at least 10 dg to demonstrate improved trunk mobility for strength and postural stability. STG Duration 6 visits Senior Living Goal (LTG) Pt will improve global trunk ROM by at least 15 dg to demonstrate improved trunk mobility for strength and postural stability. LTG Duration 12 visits Seven Impairment compliance, function, strength Short Term Goal (STG) Pt will report compliance with HEP at least 3x/wk to maximize gains made during PT sessions. STG Duration 6 visits Senior Living Goal (LTG) Pt will report and maintain compliance with HEP at least 3x/wk to demonstrate independence and maintain gains after discharge. LTG Duration 12 visits Six Impairment Function Impairment NDI 21/50 Short Term Goal (STG) Pt will improve NDI score by at least 7 points in order to demonstrate better tolerance for activity. STG Duration 6 visits Technical Services Coordinator Goal (LTG) Pt will improve NDI score by at least 14 points (MCID) in order to demonstrate better tolerance for activity. LTG Duration 12 visits Five Impairment function Impairment Pt reports unable to lift more than 20# due to pain Short Term Goal (STG) Pt will be able to lift at least 25# with 2/10 or less neck/back pain to demo improved activity tolerance and to return to PLOF. STG Duration 6 visits Senior Living Goal (LTG) Pt will be able to lift at least 40# (average windshield weight) with 2/10 or less neck /back pain to demo improved activity tolerance to return to PLOF. LTG Duration 12 visits Four Impairment Endurance, stability Impairment Deep Neck Flexor Endurance score 5 seconds Short Term Goal (STG) Pt's deep neck flexor endurance test will improve to at least 20 seconds in order to demonstrate improved cervical spine muscle endurance and strength. STG Duration 6 visits Technical Services Coordinator Goal (LTG) Pt's deep neck flexor endurance test will improve to at least 38 seconds (gender norm) in order to demonstrate improved cervical spine muscle endurance and strength. LTG Duration 12 visits Three Impairment strength Impairment Cervical spine strength B lateral flexion and rotation 3 +/5 Short Term Goal (STG) Pt will increase B cervical spine lateral flexion and rotation muscle test to at least 4-/5 to demonstrate improved strength and stability to return to PLOF. STG Duration 6 visits Technical Services Coordinator Goal (LTG) Pt will increase B cervical spine lateral flexion and rotation muscle test to at least 4/5 to demonstrate improve strength and stability to return to PLOF. LTG Duration 12 visits Two Impairment ROM Impairment Cervical spine rotation ROM limited Short Term Goal (STG) Pt will increase cervical spine rotation ROM by at least 15 deg bilaterally for improved visual scanning during driving. STG Duration 6 visits Senior Living Goal (LTG) Pt cervical spine rotation ROM will be within 10 deg of each other bilaterally for improved visual scanning during driving. LTG Duration 12 visits One Impairment ROM Impairment Cervical spine flex ROM 15 deg , ext ROM 30 deg Short Term Goal (STG) Pt will increase cervical spine sagittal ROM by at least 15 deg in ea direction to improve mobility to PLOF. STG Duration 6 visits Senior Living Goal (LTG) Pt will increase cervical spine sagittal ROM by at least 25 deg in ea direction to improve mobility to PLOF. LTG Duration 12 visits Assessment Summary Assessment Pt presents with increased neck pain today compared to prior visits. He reports feeling the pain after last session which has continued over the week; however, he also reports that has had tooth pain over the last week as well and has not followed up with the dentist. Tmt focus today on calming symptoms, periscapular strengthening, deep neck flexor endurance, and improving cervical/ thoracic spine motion. Demos improved scap control and neck posture during exercises, but requires cueing to maintain chin tuck and prevent fwd neck flex. Issued HEP with prone IYT, row. Pt would benefit from skilled PT to address impairments in cervical/ thoracic spine mobility and strength, activity tolerance, periscapular strengthening, and lifting mechanics in order to return to PLOF and improve QOL. Physical Therapy Plan Frequency and Duration Frequency of Treatment 1-2x/wk, 12 visits Duration of treatment (weeks) 8 Plan of Care Start Date 03/02/23 Plan of Care End Date 04/20/23 Therapeutic Interventions Therapeutic Interventions Home Exercise Program,Joint Mobilizations,Manual Therapy, Neuromuscular Re-education, Patient/Caregiver Education, Self-Care/Home Management,Soft Tissue Mobilization, Therapeutic Activities, Therapeutic Exercises Modalities Cold Pack/Ice Massage,Electric Stimulation,Hot Packs, Iontophoresis,Ultrasound Next Visit Focus/Plan Next Note Type Treatment Note Next Visit Plan Response last tx resisted LS flexion/rotation Next tx, continue DNF lift in supine toward goal endurance. POC: Continue with AAROM>AROM for cervical and thoracic spine. Begin isometric strengthening. Add B ER. Continue manual tx
--- NOTE | 2023-03-25 15:46 | PT.OTN ---
Current Diagnoses Strain of muscle, fascia and tendon at neck level, subsequent encounter (03/25/23) Physical Therapy Treatment Note PT-OP-A Visit Information Start: 03/02/23 16:12 Freq: Status: Active Protocol: Document 03/25/23 13:52 NM (Rec: 03/25/23 14:31 NM [id number]) Out-Patient Physical Therapy Visit Information Visit Information Visit Type Treatment Note Visit Note 10/27 PN on 04/13 to extend POC (9th visit) Visit Start Time 13:48 Visit Stop Time 14:30 Total Visit Minutes 42 Visit Number 10/27 Evaluation Information Evaluation Date 03/02/23 PT-OP-B Current Condition Start: 03/02/23 16:12 Freq: Status: Active Protocol: Document 03/02/23 16:13 NM (Rec: 03/02/23 16:43 NM [id number]) Current Condition History of Current Condition Onset Date 01/19/23 Current Complaints neck and thoracic stiffness/ pain, muscle tightness, pressure in spine History of Current Condition Pt presents to clinic with cervical and thoracic pain beginning on 01/19/23 when pt was attempting set a windshield into a large car alone. He reports feeling something (cannot elaborate) in his R mid back when lifting the windshield and placing it in the car, but was not able to stop work due to a busy schedule. The next day his neck/back pain worsened and has not relented. The pain is most pronounced between his R scapula and spine, but he also has tenderness on the back of his head/neck. Symptoms also include neck/mid back stiffness along with tight muscles of the neck and between shoulder blades. He has been unable to work since 01/21/23. Pt had a previous shoulder surgery (biceps tendon/labrum repair) and had returned to work for about 6-7 months when the injury occurred. Treatment Goals Patient/Caregiver Goals Return to work, decrease pain Prior Functional Status Baseline Function- ADL's Independent Baseline Function- Mobility Independent Baseline Function- Work/School Able to perform most of job functions, has a trainee to help. He was completing a work conditioning program for prior shoulder surgery but did not complete program Current Functional Impairments (Reported) Functional Limitations- ADL's Able to perform ADLs with assistance due to pain Functional Limitations- Mobility/Gait Pain with movement (standing, walking) and sustained postures (sitting, standing) Functional Limitations- Work/School Currently unable to work due to pain PT-OP-C Subjective Start: 03/02/23 16:12 Freq: Status: Active Protocol: Document 03/25/23 13:52 NM (Rec: 03/25/23 14:31 NM [id number]) OP-PT Subjective Patient Comments Patient Comments Pt just woke up and is not in a good mood today. His appointsments got rescheduled which is upsetting, and he reports he didn't sleep well. He reports that he has been performing his HEP 2x/day, but he has also been sitting/ sleeping in his beverley chair. Patient Reported Progress Same PT-OP-E Functional Tests Start: 03/02/23 16:12 Freq: Status: Active Protocol: Document 03/02/23 16:13 NM (Rec: 03/02/23 16:43 NM [id number]) Functional Tests Other Deep Neck Flexor Endurance Test Score 5 seconds (norm = 38 seconds) Comment Supine with neck in cervical retraction and neck flexion off table PT-OP-F Manual Assessment Start: 03/02/23 16:12 Freq: Status: Active Protocol: Document 03/02/23 16:13 NM (Rec: 03/02/23 16:43 NM [id number]) Manual Assessments Soft Tissue Assessment Soft Tissue Mobility Assessment Pt able to tolerate moderate intensity soft tissue assessment. Demos decreased soft tissue mobility of R upper trapezius, R SCM, B rhomboids, and B rotator cuff muscles. Joint Mobility Assessment Joint Mobility Assessment P-A springing of cervical and thoracic spinous processes have normal segmental mobility . Pt reports symptom relief with assessment. Decreased lower cervical spine mobility during L>R side glides, no pain or symptom provocation. Thoracic rib mobility and transverse process segmental mobility normal, as well; no pain or symptom provocation. PT-OP-G Mobility & Gait Start: 03/02/23 16:12 Freq: Status: Active Protocol: Document 03/02/23 16:13 NM (Rec: 03/02/23 16:43 NM [id number]) OP Gait Assessment Gait Gait Assistance Required: Independent PT-OP-H Neuro Start: 03/02/23 16:12 Freq: Status: Active Protocol: Document 03/02/23 16:13 NM (Rec: 03/02/23 16:43 NM [id number]) Sensation Evaluation Gross Sensation Gross Sensation WNL Comments Summary Comments Cervical, UE, thoracic dermatomes intact to light touch sensation bilaterally. PT-OP-J Posture/Palpation/Skin Start: 03/02/23 16:12 Freq: Status: Active Protocol: Document 03/02/23 16:13 NM (Rec: 03/02/23 16:43 NM [id number]) Posture Evaluation Position Standing Evaluation View Lateral Head/C-Spine Posture Forward Head T-Spine Posture Increased Kyphosis L-Spine Posture Decreased Lordosis Shoulder Posture (R) Elevated Scapula Posture (L) Elevated,(R) Elevated,(R) Tipped Arm Posture (L) Externally Rotated,(R) Externally Rotated Pelvis Posture Posterior Tilted Weight Distribution Balanced Hip Posture (L) Externally Rotated,(R) Externally Rotated Palpation Assessment Location Thoracic Spine Palpation Location Bilateral: Rhomboids, Mid- lower Trapezius, periscapular muscles Palpation Findings Soft Tissue Tightness,Muscle Guarding,Tenderness Palpation Details R Rhomboid more tender to palpation than L Cervical Spine Palpation Location Bilateral: suboccipitals, Upper trapezius, paraspinals, SCM, LS Palpation Findings Soft Tissue Tightness,Spasm, Muscle Guarding,Tenderness Palpation Details Spasm in B suboccipitals; tenderness in R upper trap/SCM - limiting mobility PT-OP-K Range of Motion Start: 03/02/23 16:12 Freq: Status: Active Protocol: Document 03/02/23 16:13 NM (Rec: 03/02/23 16:43 NM [id number]) Cervical Spine Range of Motion Cervical Spine Active Degrees Testing Position Sitting Flexion 15 Extension 30 Rotation Left 40 Rotation Right 64 Lateral Flexion Left 30 Lateral Flexion Right 25 ROM Limitations Soft Tissue Tightness,Pain Comments Reports pressure in spine with cervical extension; pain medial to R scapula with B rotation Thoracic Spine ROM: Flex= 30 deg Ext = 0 deg L lateral flex = 15 deg R lateral flex = 20 deg L rotation = 7 cm R rotation = 9 cm Reports pain medial to R scapula with B rotation, L lateral flex PT-OP-L Special Tests Start: 03/02/23 16:12 Freq: Status: Active Protocol: Document 03/02/23 16:13 NM (Rec: 03/02/23 16:43 NM [id number]) Special Tests Cervical Spine Special Tests Transverse Ligament Test Results negative Comments no excessive motion Alar Ligament Test Results negative Comments no excessive motion in B lateral flexion or rotation Traction Test Results positive Comments relieves symptoms PT-OP-M Strength Start: 03/02/23 16:12 Freq: Status: Active Protocol: Document 03/02/23 16:13 NM (Rec: 03/02/23 16:43 NM [id number]) Cervical Spine Strength Cervical Spine Manual Muscle Testing Testing Position Sitting Flexion (C1-2) 4 Good Extension 4 Good Rotation Left 3+ Fair+ Rotation Right 3+ Fair+ Lateral Flexion Left (C3) 3+ Fair+ Lateral Flexion Right (C3) 3+ Fair+ Comments Pain medial to R scapula with resisted lateral flexion, in R SCM with rotation Trunk Strength Trunk Manual Muscle Testing Testing Position Sitting Flexion 4- Good- Extension 3+ Fair+ Rotation Left 4- Good- Rotation Right 4- Good- Lateral Flexion Left 4- Good- Lateral Flexion Right 4- Good- Comments B pain medial to B scapulae reproduced with lateral flexion Scapula Strength Scapula Manual Muscle Testing Left Elevation (C4) 4 Good Adduction 3+ Fair+ Abduction 4 Good Depression 4- Good- Comments Demos good neuromuscular control and AROM, no symptoms reported Serratus Anterior = 4 Upper trapezius = 4 Middle trapezius = 3+ Lower trapezius = 4- Rhomboids = 3+ Levator scapula = 4- Right Elevation (C4) 4 Good Adduction 3+ Fair+ Abduction 3+ Fair+ Depression 4- Good- Comments Demos limited AROM during elevation/depression, medial/ lateral glides; poor neuromuscular control and attempts to compensate with shoulder flexors. Serratus Anterior = 3+ Upper trapezius = 4 Middle trapezius = 3+ Lower trapezius = 4- Rhomboids = 3+ Levator scapula = 4- PT-OP-Q Treatments Start: 03/04/23 15:33 Freq: Status: Active Protocol: Document 03/25/23 13:52 NM (Rec: 03/25/23 14:31 NM [id number]) Therapeutic Exercises Prone Exercises Scap retract/chin tuck Prone Exercise Name prone on elbows, elbows under shoulders Side bilateral Reps/Minutes 1x5x5 Comments cues for scap retract scapular push up Prone Exercise Name modified on knees Side bilateral Equipment Used [place] tb Reps/Minutes 2x10 Comments for scap protraction, scap movement IYT's Prone Exercise Name T to Y lift over 4 cones Side bilateral Reps/Minutes 1x8 Comments cues for shoulder retraction Sitting Exercises C spine isometrics Side bilateral Resistance isometric Equipment Used blue ball behind head for feedback Reps/Minutes 5x5 ea direction Comments no pain reported trunk flexion/eccentric ext Sitting Exercise Name cont next time thoracic rotation TB Sitting Exercise Name cont next time Cervical Spine AAROM Sitting Exercise Name next session, progress AROM Standing Exercises Serratus punch Standing Exercise Name for serratus activation Side bilateral Resistance blue tb Reps/Minutes 1x10 Comments cues for protraction Rows Standing Exercise Name mid row Side bilateral Resistance blue tb Reps/Minutes 1x15 Comments cues scap retraction Manual Therapy Treatment Soft Tissue Mobilization Thoracic Spine Body Location B Rhomboids, ES T3-L3 Mobilization Type Strumming Intensity/Depth Moderate Body Position Prone Comments Reports improvement in symptoms with soft tissue of B rhomboids, continues to lessen tension between B shoulder blades. Instructed to perform at home with rugby ball or similar Cervical Spine Body Location B UT, LS, SCM, suboccipitals Mobilization Type Myofascial Release,Sustained Pressure Intensity/Depth Moderate Body Position Hooklying Comments Pt with mild spasm in suboccipitals with sustained pressure; able to promote muscle relaxation. Pt reports improvement in symptoms Joint Mobilizations C spine Joint lower Cspine (C4-C7) Direction L>R, R>L Grade II Body Position Hooklying Reps/Duration 30x4 Comments to decrease c spine pain Scapulothoracic Direction M/L, protract/retract, elev/ dep Grade II Body Position Sidelying Reps/Duration 2x30 Comments AAROM Manual Traction Cervical Spine Body Position Hooklying Reps/Duration 2 min Comments Pt reports relief and gentle stretch of neck extensors Self-Care/Home Management Treatment Education Patient Education Home Exercise Program,Posture Other Education reviewed and provided PT-OP-T Assessment and Plan Start: 03/02/23 16:12 Freq: Status: Active Protocol: Document 03/25/23 13:52 NM (Rec: 03/25/23 14:31 NM [id number]) Physical Therapy Assessment Goals Eight Impairment ROM Impairment Global trunk ROM limited Short Term Goal (STG) Pt will improve global trunk ROM by at least 10 dg to demonstrate improved trunk mobility for strength and postural stability. STG Duration 6 visits Box Closing Machine Operator Goal (LTG) Pt will improve global trunk ROM by at least 15 dg to demonstrate improved trunk mobility for strength and postural stability. LTG Duration 12 visits Seven Impairment compliance, function, strength Short Term Goal (STG) Pt will report compliance with HEP at least 3x/wk to maximize gains made during PT sessions. STG Duration 6 visits Penitentiary Goal (LTG) Pt will report and maintain compliance with HEP at least 3x/wk to demonstrate independence and maintain gains after discharge. LTG Duration 12 visits Six Impairment Function Impairment NDI 21/50 Short Term Goal (STG) Pt will improve NDI score by at least 7 points in order to demonstrate better tolerance for activity. STG Duration 6 visits [facility]iary Goal (LTG) Pt will improve NDI score by at least 14 points (MCID) in order to demonstrate better tolerance for activity. LTG Duration 12 visits Five Impairment function Impairment Pt reports unable to lift more than 20# due to pain Short Term Goal (STG) Pt will be able to lift at least 25# with 2/10 or less neck/back pain to demo improved activity tolerance and to return to PLOF. STG Duration 6 visits Box Closing Machine Operator Goal (LTG) Pt will be able to lift at least 40# (average windshield weight) with 2/10 or less neck /back pain to demo improved activity tolerance to return to PLOF. LTG Duration 12 visits Four Impairment Endurance, stability Impairment Deep Neck Flexor Endurance score 5 seconds Short Term Goal (STG) Pt's deep neck flexor endurance test will improve to at least 20 seconds in order to demonstrate improved cervical spine muscle endurance and strength. STG Duration 6 visits Box Closing Machine Operator Goal (LTG) Pt's deep neck flexor endurance test will improve to at least 38 seconds (gender norm) in order to demonstrate improved cervical spine muscle endurance and strength. LTG Duration 12 visits Three Impairment strength Impairment Cervical spine strength B lateral flexion and rotation 3 +/5 Short Term Goal (STG) Pt will increase B cervical spine lateral flexion and rotation muscle test to at least 4-/5 to demonstrate improved strength and stability to return to PLOF. STG Duration 6 visits Box Closing Machine Operator Goal (LTG) Pt will increase B cervical spine lateral flexion and rotation muscle test to at least 4/5 to demonstrate improve strength and stability to return to PLOF. LTG Duration 12 visits Two Impairment ROM Impairment Cervical spine rotation ROM limited Short Term Goal (STG) Pt will increase cervical spine rotation ROM by at least 15 deg bilaterally for improved visual scanning during driving. STG Duration 6 visits [facility]itentiary Goal (LTG) Pt cervical spine rotation ROM will be within 10 deg of each other bilaterally for improved visual scanning during driving. LTG Duration 12 visits One Impairment ROM Impairment Cervical spine flex ROM 15 deg , ext ROM 30 deg Short Term Goal (STG) Pt will increase cervical spine sagittal ROM by at least 15 deg in ea direction to improve mobility to PLOF. STG Duration 6 visits [facility]iary Goal (LTG) Pt will increase cervical spine sagittal ROM by at least 25 deg in ea direction to improve mobility to PLOF. LTG Duration 12 visits Assessment Summary Assessment Pt did not have a positive outlook to physical therapy today, so had limited tolerance for activities targeting cervical spine today . He responds positively to manual tmt, so began session with soft tissue mobilization to address restrictions and manual glides to lower C spine to improve mobility. Pt reports improvements in pain status with manual tmts. Progressed to cervical spine isometrics using a ball against the wall, also progressed rows and prone exercises to a higher resistance/level. Pt tolerated c spine isometrics without increased pain and did not grimace during performance. He continues to be limited in his C/T spine ROM and strength , in addition to his activity tolerance. Pt often has to self-manipulate his spine or stretch for relief between sets. Will continue to progress ROM and strengthening as tolerated. PT educated pt on posture, walking program, HEP; provided handouts. PT also discussed importance of moving throughout the day vs being sedentary (e.g. walking program); however, pt was not receptive. PT also reviewed pt 's prior HEP with him as he reports no progress despite performing them, but he was only able to name and perform 1 exercise. Pt would benefit form skilled PT to address deficits in c/t spine ROM, strength, activity tolerance in order to return to PLOF. Physical Therapy Plan Frequency and Duration Frequency of Treatment 1-2x/wk, 12 visits Duration of treatment (weeks) 8 Plan of Care Start Date 03/02/23 Plan of Care End Date 04/20/23 Therapeutic Interventions Therapeutic Interventions Home Exercise Program,Joint Mobilizations,Manual Therapy, Neuromuscular Re-education, Patient/Caregiver Education, Self-Care/Home Management,Soft Tissue Mobilization, Therapeutic Activities, Therapeutic Exercises Modalities Cold Pack/Ice Massage,Electric Stimulation,Hot Packs, Iontophoresis,Ultrasound Next Visit Focus/Plan Next Note Type Treatment Note Next Visit Plan Response last tx resisted LS flexion/rotation Next tx, continue DNF lift in supine toward goal endurance. POC: Continue with AAROM>AROM for cervical and thoracic spine. Begin isometric strengthening. Add B ER. Continue manual tx
--- NOTE | 2023-04-04 11:32 | PT.OTN ---
Current Diagnoses Strain of muscle, fascia and tendon at neck level, subsequent encounter (04/04/23) Physical Therapy Treatment Note PT-OP-A Visit Information Start: 03/02/23 16:12 Freq: Status: Active Protocol: Document 04/04/23 10:34 NM (Rec: 04/04/23 11:31 NM [id number]) Out-Patient Physical Therapy Visit Information Visit Information Visit Type Treatment Note Visit Note 11/27 PN on 04/13 to extend POC if needed Visit Start Time 10:34 Visit Stop Time 11:15 Total Visit Minutes 41 Visit Number 11/27 Evaluation Information Evaluation Date 03/02/23 PT-OP-B Current Condition Start: 03/02/23 16:12 Freq: Status: Active Protocol: Document 03/02/23 16:13 NM (Rec: 03/02/23 16:43 NM [id number]) Current Condition History of Current Condition Onset Date 01/19/23 Current Complaints neck and thoracic stiffness/ pain, muscle tightness, pressure in spine History of Current Condition Pt presents to clinic with cervical and thoracic pain beginning on 01/19/23 when pt was attempting set a windshield into a large car alone. He reports feeling something (cannot elaborate) in his R mid back when lifting the windshield and placing it in the car, but was not able to stop work due to a busy schedule. The next day his neck/back pain worsened and has not relented. The pain is most pronounced between his R scapula and spine, but he also has tenderness on the back of his head/neck. Symptoms also include neck/mid back stiffness along with tight muscles of the neck and between shoulder blades. He has been unable to work since 01/21/23. Pt had a previous shoulder surgery (biceps tendon/labrum repair) and had returned to work for about 6-7 months when the injury occurred. Treatment Goals Patient/Caregiver Goals Return to work, decrease pain Prior Functional Status Baseline Function- ADL's Independent Baseline Function- Mobility Independent Baseline Function- Work/School Able to perform most of job functions, has a trainee to help. He was completing a work conditioning program for prior shoulder surgery but did not complete program Current Functional Impairments (Reported) Functional Limitations- ADL's Able to perform ADLs with assistance due to pain Functional Limitations- Mobility/Gait Pain with movement (standing, walking) and sustained postures (sitting, standing) Functional Limitations- Work/School Currently unable to work due to pain PT-OP-C Subjective Start: 03/02/23 16:12 Freq: Status: Active Protocol: Document 04/04/23 10:34 NM (Rec: 04/04/23 11:31 NM [id number]) OP-PT Subjective Patient Comments Patient Comments Pt reports that he was sick for the past week, but he is feeling better. When he was sick, he reports that he was not performing his exercises, but he now reports compliance with his exercises. PT-OP-E Functional Tests Start: 03/02/23 16:12 Freq: Status: Active Protocol: Document 03/02/23 16:13 NM (Rec: 03/02/23 16:43 NM [id number]) Functional Tests Other Deep Neck Flexor Endurance Test Score 5 seconds (norm = 38 seconds) Comment Supine with neck in cervical retraction and neck flexion off table PT-OP-F Manual Assessment Start: 03/02/23 16:12 Freq: Status: Active Protocol: Document 03/02/23 16:13 NM (Rec: 03/02/23 16:43 NM [id number]) Manual Assessments Soft Tissue Assessment Soft Tissue Mobility Assessment Pt able to tolerate moderate intensity soft tissue assessment. Demos decreased soft tissue mobility of R upper trapezius, R SCM, B rhomboids, and B rotator cuff muscles. Joint Mobility Assessment Joint Mobility Assessment P-A springing of cervical and thoracic spinous processes have normal segmental mobility . Pt reports symptom relief with assessment. Decreased lower cervical spine mobility during L>R side glides, no pain or symptom provocation. Thoracic rib mobility and transverse process segmental mobility normal, as well; no pain or symptom provocation. PT-OP-G Mobility & Gait Start: 03/02/23 16:12 Freq: Status: Active Protocol: Document 03/02/23 16:13 NM (Rec: 03/02/23 16:43 NM [id number]) OP Gait Assessment Gait Gait Assistance Required: Independent PT-OP-H Neuro Start: 03/02/23 16:12 Freq: Status: Active Protocol: Document 03/02/23 16:13 NM (Rec: 03/02/23 16:43 NM [id number]) Sensation Evaluation Gross Sensation Gross Sensation WNL Comments Summary Comments Cervical, UE, thoracic dermatomes intact to light touch sensation bilaterally. PT-OP-J Posture/Palpation/Skin Start: 03/02/23 16:12 Freq: Status: Active Protocol: Document 03/02/23 16:13 NM (Rec: 03/02/23 16:43 NM [id number]) Posture Evaluation Position Standing Evaluation View Lateral Head/C-Spine Posture Forward Head T-Spine Posture Increased Kyphosis L-Spine Posture Decreased Lordosis Shoulder Posture (R) Elevated Scapula Posture (L) Elevated,(R) Elevated,(R) Tipped Arm Posture (L) Externally Rotated,(R) Externally Rotated Pelvis Posture Posterior Tilted Weight Distribution Balanced Hip Posture (L) Externally Rotated,(R) Externally Rotated Palpation Assessment Location Thoracic Spine Palpation Location Bilateral: Rhomboids, Mid- lower Trapezius, periscapular muscles Palpation Findings Soft Tissue Tightness,Muscle Guarding,Tenderness Palpation Details R Rhomboid more tender to palpation than L Cervical Spine Palpation Location Bilateral: suboccipitals, Upper trapezius, paraspinals, SCM, LS Palpation Findings Soft Tissue Tightness,Spasm, Muscle Guarding,Tenderness Palpation Details Spasm in B suboccipitals; tenderness in R upper trap/SCM - limiting mobility PT-OP-K Range of Motion Start: 03/02/23 16:12 Freq: Status: Active Protocol: Document 03/02/23 16:13 NM (Rec: 03/02/23 16:43 NM [id number]) Cervical Spine Range of Motion Cervical Spine Active Degrees Testing Position Sitting Flexion 15 Extension 30 Rotation Left 40 Rotation Right 64 Lateral Flexion Left 30 Lateral Flexion Right 25 ROM Limitations Soft Tissue Tightness,Pain Comments Reports pressure in spine with cervical extension; pain medial to R scapula with B rotation Thoracic Spine ROM: Flex= 30 deg Ext = 0 deg L lateral flex = 15 deg R lateral flex = 20 deg L rotation = 7 cm R rotation = 9 cm Reports pain medial to R scapula with B rotation, L lateral flex PT-OP-L Special Tests Start: 03/02/23 16:12 Freq: Status: Active Protocol: Document 03/02/23 16:13 NM (Rec: 03/02/23 16:43 NM [id number]) Special Tests Cervical Spine Special Tests Transverse Ligament Test Results negative Comments no excessive motion Alar Ligament Test Results negative Comments no excessive motion in B lateral flexion or rotation Traction Test Results positive Comments relieves symptoms PT-OP-M Strength Start: 03/02/23 16:12 Freq: Status: Active Protocol: Document 03/02/23 16:13 NM (Rec: 03/02/23 16:43 NM [id number]) Cervical Spine Strength Cervical Spine Manual Muscle Testing Testing Position Sitting Flexion (C1-2) 4 Good Extension 4 Good Rotation Left 3+ Fair+ Rotation Right 3+ Fair+ Lateral Flexion Left (C3) 3+ Fair+ Lateral Flexion Right (C3) 3+ Fair+ Comments Pain medial to R scapula with resisted lateral flexion, in R SCM with rotation Trunk Strength Trunk Manual Muscle Testing Testing Position Sitting Flexion 4- Good- Extension 3+ Fair+ Rotation Left 4- Good- Rotation Right 4- Good- Lateral Flexion Left 4- Good- Lateral Flexion Right 4- Good- Comments B pain medial to B scapulae reproduced with lateral flexion Scapula Strength Scapula Manual Muscle Testing Left Elevation (C4) 4 Good Adduction 3+ Fair+ Abduction 4 Good Depression 4- Good- Comments Demos good neuromuscular control and AROM, no symptoms reported Serratus Anterior = 4 Upper trapezius = 4 Middle trapezius = 3+ Lower trapezius = 4- Rhomboids = 3+ Levator scapula = 4- Right Elevation (C4) 4 Good Adduction 3+ Fair+ Abduction 3+ Fair+ Depression 4- Good- Comments Demos limited AROM during elevation/depression, medial/ lateral glides; poor neuromuscular control and attempts to compensate with shoulder flexors. Serratus Anterior = 3+ Upper trapezius = 4 Middle trapezius = 3+ Lower trapezius = 4- Rhomboids = 3+ Levator scapula = 4- PT-OP-Q Treatments Start: 03/04/23 15:33 Freq: Status: Active Protocol: Document 04/04/23 10:34 NM (Rec: 04/04/23 11:31 NM [id number]) Cardio Equipment Upper Body Ergometer (UBE) Duration (Minutes) 4 Other warm up Therapeutic Exercises Supine Exercises chin tuck + neck flex Supine Exercise Name for deep neck flexor strengthening Side bilateral Reps/Minutes 1x10x5 Comments cues for chin tuck, stay in pain free range Prone Exercises Scap retract/chin tuck Prone Exercise Name in quadruped: 1. ext, 2. rotation Side bilateral Resistance bilateral Reps/Minutes 10x5 Comments cues to stay in pain free range Sitting Exercises C spine isometrics Sitting Exercise Name HEP C Spine stretching Sitting Exercise Name 1. upper trap, 2. LS Side bilateral Equipment Used tensioning by holding chair with opposite hand Reps/Minutes 2x30 ea direction Cervical Spine AAROM Sitting Exercise Name with towel for ext snag to assist ROM Side bilateral Equipment Used towel Reps/Minutes 10x5 Comments towel at C7 Other Exercises Thoracic Rotation Other Exercise Name 1/2 kneel thoracic rot Side bilateral Resistance king salmon green tb (lvl 3) Reps/Minutes 1x10 ea, 2nd set with band Comments with added scap protraction in fwd reach Manual Therapy Treatment Soft Tissue Mobilization Thoracic Spine Body Location L rhomboids Mobilization Type Sustained Pressure Intensity/Depth Moderate Body Position Sidelying Comments MWM with protraction and retraction, PT supporting arm in sidelying. Reports lessening of pain between shoulder blade Joint Mobilizations C spine Direction post>ant at C6-C7 Grade III Body Position seated Reps/Duration 1x10x3 Comments To assist with C spine extension, pt able to get up to 60 deg ext actively with P- A mobilization Scapulothoracic Direction M/L, protract/retract, elev/ dep Grade II Body Position Sidelying Reps/Duration 2x30 Comments AROm PT-OP-T Assessment and Plan Start: 03/02/23 16:12 Freq: Status: Active Protocol: Document 04/04/23 10:34 NM (Rec: 04/04/23 11:31 NM [id number]) Physical Therapy Assessment Goals Eight Impairment ROM Impairment Global trunk ROM limited Short Term Goal (STG) Pt will improve global trunk ROM by at least 10 dg to demonstrate improved trunk mobility for strength and postural stability. 04/04/23: Flexion 60 deg, extension 25 deg STG Duration 6 visits MET Sales Recruitment Specialist Goal (LTG) Pt will improve global trunk ROM by at least 15 dg to demonstrate improved trunk mobility for strength and postural stability. 04/04/23: Flexion 60 deg, extension 25 deg LTG Duration 12 visits MET Seven Impairment compliance, function, strength Short Term Goal (STG) Pt will report compliance with HEP at least 3x/wk to maximize gains made during PT sessions. STG Duration 6 visits Sales Recruitment Specialist Goal (LTG) Pt will report and maintain compliance with HEP at least 3x/wk to demonstrate independence and maintain gains after discharge. LTG Duration 12 visits Six Impairment Function Impairment NDI 21/50 Short Term Goal (STG) Pt will improve NDI score by at least 7 points in order to demonstrate better tolerance for activity. STG Duration 6 visits Prison Goal (LTG) Pt will improve NDI score by at least 14 points (MCID) in order to demonstrate better tolerance for activity. LTG Duration 12 visits Five Impairment function Impairment Pt reports unable to lift more than 20# due to pain Short Term Goal (STG) Pt will be able to lift at least 25# with 2/10 or less neck/back pain to demo improved activity tolerance and to return to PLOF. STG Duration 6 visits Sales Recruitment Specialist Goal (LTG) Pt will be able to lift at least 40# (average windshield weight) with 2/10 or less neck /back pain to demo improved activity tolerance to return to PLOF. LTG Duration 12 visits Four Impairment Endurance, stability Impairment Deep Neck Flexor Endurance score 5 seconds Short Term Goal (STG) Pt's deep neck flexor endurance test will improve to at least 20 seconds in order to demonstrate improved cervical spine muscle endurance and strength. STG Duration 6 visits Prison Goal (LTG) Pt's deep neck flexor endurance test will improve to at least 38 seconds (gender norm) in order to demonstrate improved cervical spine muscle endurance and strength. LTG Duration 12 visits Three Impairment strength Impairment Cervical spine strength B lateral flexion and rotation 3 +/5 Short Term Goal (STG) Pt will increase B cervical spine lateral flexion and rotation muscle test to at least 4-/5 to demonstrate improved strength and stability to return to PLOF. STG Duration 6 visits Prison Goal (LTG) Pt will increase B cervical spine lateral flexion and rotation muscle test to at least 4/5 to demonstrate improve strength and stability to return to PLOF. LTG Duration 12 visits Two Impairment ROM Impairment Cervical spine rotation ROM limited Short Term Goal (STG) Pt will increase cervical spine rotation ROM by at least 15 deg bilaterally for improved visual scanning during driving. STG Duration 6 visits MET Prison Goal (LTG) Pt cervical spine rotation ROM will be within 10 deg of each other bilaterally for improved visual scanning during driving. MET 04/04/23: B C spine Rot AROM 90 deg LTG Duration 12 visits MET One Impairment ROM Impairment Cervical spine flex ROM 15 deg , ext ROM 30 deg Short Term Goal (STG) Pt will increase cervical spine sagittal ROM by at least 15 deg in ea direction to improve mobility to PLOF. 04/04/23: NOT MET flex ROM 25 deg (*10 deg inc), ext ROM 35 deg (*5 deg inc), 60 deg ext after mobilization STG Duration 6 visits NOT MET Sales Recruitment Specialist Goal (LTG) Pt will increase cervical spine sagittal ROM by at least 25 deg in ea direction to improve mobility to PLOF. LTG Duration 12 visits Progress Towards Goals Progress Towards Goals Slow Progress due to Activity Tolerance Assessment Summary Assessment Pt reports minimal improvement in symptoms since beginning PT and reports that he is being compliant with his HEP. However, he demos improved cervical and thoracic spine ROM. Pt has now met 2 LTGs. His flexion ROM is still limited to 25 deg, but extension is 35 deg before manual tmt and 60 deg after manual mobilization (seated post>ant glide). Pt demos improved tolerance for cervical spine active contraction against gravity ( deep neck flexors, extensors); however, he continues to have pain at end range. Pt cued to remain in pain free range for now. Will begin to progress pt into c spine active strengthening and gentle lifting activities in next session in order to work toward lifting goals and to assess pt tolerance to load at cervical/thoracic spines. HEP updated: resisted thoracic rot in half kneel, chin tuck with flex, quad chin tuck with rot and ext. Pt would benefit from skilled PT to address limitations in C/T spine strength, c spine flexion, and endurance in order to improve ADL tolerance and return to PLOF. Physical Therapy Plan Frequency and Duration Frequency of Treatment 1-2x/wk, 12 visits Duration of treatment (weeks) 8 Plan of Care Start Date 03/02/23 Plan of Care End Date 04/20/23 Therapeutic Interventions Therapeutic Interventions Home Exercise Program,Joint Mobilizations,Manual Therapy, Neuromuscular Re-education, Patient/Caregiver Education, Self-Care/Home Management,Soft Tissue Mobilization, Therapeutic Activities, Therapeutic Exercises Modalities Cold Pack/Ice Massage,Electric Stimulation,Hot Packs, Iontophoresis,Ultrasound Next Visit Focus/Plan Next Note Type Treatment Note Next Visit Plan Response last tx resisted LS flexion/rotation Next tx, continue DNF lift in supine toward goal endurance. Trial lifting (scaption, [place] lifting) POC: Continue with AAROM>AROM for cervical and thoracic spine. Begin isometric strengthening. Add B ER. Continue manual tx PN on 04/13
--- NOTE | 2023-04-08 14:54 | PT.OTN ---
Current Diagnoses Strain of muscle, fascia and tendon at neck level, subsequent encounter (04/08/23) Physical Therapy Treatment Note PT-OP-A Visit Information Start: 03/02/23 16:12 Freq: Status: Active Protocol: Document 04/08/23 12:19 NM (Rec: 04/08/23 13:02 NM [id number]) Out-Patient Physical Therapy Visit Information Visit Information Visit Type Treatment Note Visit Note 12/28 PN on 04/13 to extend POC if needed Visit Start Time 12:18 Visit Stop Time 13:00 Total Visit Minutes 42 Visit Number 12/28 Evaluation Information Evaluation Date 03/02/23 PT-OP-B Current Condition Start: 03/02/23 16:12 Freq: Status: Active Protocol: Document 03/02/23 16:13 NM (Rec: 03/02/23 16:43 NM [id number]) Current Condition History of Current Condition Onset Date 01/19/23 Current Complaints neck and thoracic stiffness/ pain, muscle tightness, pressure in spine History of Current Condition Pt presents to clinic with cervical and thoracic pain beginning on 01/19/23 when pt was attempting set a windshield into a large car alone. He reports feeling something (cannot elaborate) in his R mid back when lifting the windshield and placing it in the car, but was not able to stop work due to a busy schedule. The next day his neck/back pain worsened and has not relented. The pain is most pronounced between his R scapula and spine, but he also has tenderness on the back of his head/neck. Symptoms also include neck/mid back stiffness along with tight muscles of the neck and between shoulder blades. He has been unable to work since 01/21/23. Pt had a previous shoulder surgery (biceps tendon/labrum repair) and had returned to work for about 6-7 months when the injury occurred. Treatment Goals Patient/Caregiver Goals Return to work, decrease pain Prior Functional Status Baseline Function- ADL's Independent Baseline Function- Mobility Independent Baseline Function- Work/School Able to perform most of job functions, has a trainee to help. He was completing a work conditioning program for prior shoulder surgery but did not complete program Current Functional Impairments (Reported) Functional Limitations- ADL's Able to perform ADLs with assistance due to pain Functional Limitations- Mobility/Gait Pain with movement (standing, walking) and sustained postures (sitting, standing) Functional Limitations- Work/School Currently unable to work due to pain PT-OP-C Subjective Start: 03/02/23 16:12 Freq: Status: Active Protocol: Document 04/08/23 12:19 NM (Rec: 04/08/23 13:02 NM [id number]) OP-PT Subjective Patient Comments Patient Comments Pt reports that he is very tired today due to only 2 hours of sleep. He has 3/10 cervical spine/thoracic pain, which is an improvement since previous sessions. He reports compliance with his HEP. PT-OP-E Functional Tests Start: 03/02/23 16:12 Freq: Status: Active Protocol: Document 03/02/23 16:13 NM (Rec: 03/02/23 16:43 NM [id number]) Functional Tests Other Deep Neck Flexor Endurance Test Score 5 seconds (norm = 38 seconds) Comment Supine with neck in cervical retraction and neck flexion off table PT-OP-F Manual Assessment Start: 03/02/23 16:12 Freq: Status: Active Protocol: Document 03/02/23 16:13 NM (Rec: 03/02/23 16:43 NM [id number]) Manual Assessments Soft Tissue Assessment Soft Tissue Mobility Assessment Pt able to tolerate moderate intensity soft tissue assessment. Demos decreased soft tissue mobility of R upper trapezius, R SCM, B rhomboids, and B rotator cuff muscles. Joint Mobility Assessment Joint Mobility Assessment P-A springing of cervical and thoracic spinous processes have normal segmental mobility . Pt reports symptom relief with assessment. Decreased lower cervical spine mobility during L>R side glides, no pain or symptom provocation. Thoracic rib mobility and transverse process segmental mobility normal, as well; no pain or symptom provocation. PT-OP-G Mobility & Gait Start: 03/02/23 16:12 Freq: Status: Active Protocol: Document 03/02/23 16:13 NM (Rec: 03/02/23 16:43 NM [id number]) OP Gait Assessment Gait Gait Assistance Required: Independent PT-OP-H Neuro Start: 03/02/23 16:12 Freq: Status: Active Protocol: Document 03/02/23 16:13 NM (Rec: 03/02/23 16:43 NM [id number]) Sensation Evaluation Gross Sensation Gross Sensation WNL Comments Summary Comments Cervical, UE, thoracic dermatomes intact to light touch sensation bilaterally. PT-OP-J Posture/Palpation/Skin Start: 03/02/23 16:12 Freq: Status: Active Protocol: Document 03/02/23 16:13 NM (Rec: 03/02/23 16:43 NM [id number]) Posture Evaluation Position Standing Evaluation View Lateral Head/C-Spine Posture Forward Head T-Spine Posture Increased Kyphosis L-Spine Posture Decreased Lordosis Shoulder Posture (R) Elevated Scapula Posture (L) Elevated,(R) Elevated,(R) Tipped Arm Posture (L) Externally Rotated,(R) Externally Rotated Pelvis Posture Posterior Tilted Weight Distribution Balanced Hip Posture (L) Externally Rotated,(R) Externally Rotated Palpation Assessment Location Thoracic Spine Palpation Location Bilateral: Rhomboids, Mid- lower Trapezius, periscapular muscles Palpation Findings Soft Tissue Tightness,Muscle Guarding,Tenderness Palpation Details R Rhomboid more tender to palpation than L Cervical Spine Palpation Location Bilateral: suboccipitals, Upper trapezius, paraspinals, SCM, LS Palpation Findings Soft Tissue Tightness,Spasm, Muscle Guarding,Tenderness Palpation Details Spasm in B suboccipitals; tenderness in R upper trap/SCM - limiting mobility PT-OP-K Range of Motion Start: 03/02/23 16:12 Freq: Status: Active Protocol: Document 03/02/23 16:13 NM (Rec: 03/02/23 16:43 NM [id number]) Cervical Spine Range of Motion Cervical Spine Active Degrees Testing Position Sitting Flexion 15 Extension 30 Rotation Left 40 Rotation Right 64 Lateral Flexion Left 30 Lateral Flexion Right 25 ROM Limitations Soft Tissue Tightness,Pain Comments Reports pressure in spine with cervical extension; pain medial to R scapula with B rotation Thoracic Spine ROM: Flex= 30 deg Ext = 0 deg L lateral flex = 15 deg R lateral flex = 20 deg L rotation = 7 cm R rotation = 9 cm Reports pain medial to R scapula with B rotation, L lateral flex PT-OP-L Special Tests Start: 03/02/23 16:12 Freq: Status: Active Protocol: Document 03/02/23 16:13 NM (Rec: 03/02/23 16:43 NM [id number]) Special Tests Cervical Spine Special Tests Transverse Ligament Test Results negative Comments no excessive motion Alar Ligament Test Results negative Comments no excessive motion in B lateral flexion or rotation Traction Test Results positive Comments relieves symptoms PT-OP-M Strength Start: 03/02/23 16:12 Freq: Status: Active Protocol: Document 03/02/23 16:13 NM (Rec: 03/02/23 16:43 NM [id number]) Cervical Spine Strength Cervical Spine Manual Muscle Testing Testing Position Sitting Flexion (C1-2) 4 Good Extension 4 Good Rotation Left 3+ Fair+ Rotation Right 3+ Fair+ Lateral Flexion Left (C3) 3+ Fair+ Lateral Flexion Right (C3) 3+ Fair+ Comments Pain medial to R scapula with resisted lateral flexion, in R SCM with rotation Trunk Strength Trunk Manual Muscle Testing Testing Position Sitting Flexion 4- Good- Extension 3+ Fair+ Rotation Left 4- Good- Rotation Right 4- Good- Lateral Flexion Left 4- Good- Lateral Flexion Right 4- Good- Comments B pain medial to B scapulae reproduced with lateral flexion Scapula Strength Scapula Manual Muscle Testing Left Elevation (C4) 4 Good Adduction 3+ Fair+ Abduction 4 Good Depression 4- Good- Comments Demos good neuromuscular control and AROM, no symptoms reported Serratus Anterior = 4 Upper trapezius = 4 Middle trapezius = 3+ Lower trapezius = 4- Rhomboids = 3+ Levator scapula = 4- Right Elevation (C4) 4 Good Adduction 3+ Fair+ Abduction 3+ Fair+ Depression 4- Good- Comments Demos limited AROM during elevation/depression, medial/ lateral glides; poor neuromuscular control and attempts to compensate with shoulder flexors. Serratus Anterior = 3+ Upper trapezius = 4 Middle trapezius = 3+ Lower trapezius = 4- Rhomboids = 3+ Levator scapula = 4- PT-OP-Q Treatments Start: 03/04/23 15:33 Freq: Status: Active Protocol: Document 04/08/23 12:19 NM (Rec: 04/08/23 13:02 NM [id number]) Cardio Equipment Upper Body Ergometer (UBE) Duration (Minutes) 5 RPM 17 Other warm up; 2.5 fwd, 2.5 bwd Therapeutic Exercises Sidelying Exercises Open Books Side bilateral Reps/Minutes 1x10 ea Sitting Exercises Thoracic Mobility Sitting Exercise Name seated, hands behind head: 1. rotation, 2. flex/ext, 2. lateral flex Side bilateral Equipment Used chair with pillow in lumbar region Reps/Minutes 1x10 Comments to decrease stiffness Standing Exercises Upright row Standing Exercise Name slight hip hinge Side bilateral Resistance 8# db ea hand Reps/Minutes 2x8 Comments cues for correct execution; fatiguing; reports feel it but no pain R shdl Lat pull down Standing Exercise Name will progress resistance next session Side bilateral Resistance dark blue tb Reps/Minutes 2x10 ea Comments cues for scap setting for improved stability Arm elevation Standing Exercise Name 1. scaption, 2. fwd flex, 3. lateral flex Side bilateral Resistance 1# db ea hand Equipment Used short lever arm Reps/Minutes 2x10 ea Comments cues for chin tuck, correct execution Serratus punch Standing Exercise Name for serratus anterior activation Side bilateral Resistance [place] green tb Reps/Minutes 2x10 ea Comments cues for protraction no shoulder rot; decreased resistance d/t elbow pain Rows Standing Exercise Name cables- lvl1; mid row Side bilateral Resistance lvl 1 Reps/Minutes 2x15 Comments cues for scap retraction; reports no pain, but fatiguing Manual Therapy Treatment Soft Tissue Mobilization Thoracic Spine Body Location L rhomboids, subscapularis Mobilization Type Sustained Pressure Intensity/Depth Moderate Body Position Sitting Comments MWM with protraction and retraction, PT supporting arm in sidelying. Lifting up under L scapula in axilla and under inferior border to address subscapularis m. Reports lessening of pain between shoulder blade with sustained pressure and massage Cervical Spine Body Location B UT, suboccipitals Mobilization Type Myofascial Release,Sustained Pressure Intensity/Depth Moderate Body Position Hooklying Comments Pt with min spasm today in suboccipitals with sustained pressure; able to promote muscle relaxation. Decreased soft tissue restriction in B traps compared to previous sessions Joint Mobilizations TS Joint Ribs ~T5-T9, transverse processes Direction P-A, posterolateral Grade III Body Position Sitting Comments Mobilization with trunk rotation and scapula movement to address ribs, transverse process rotation. Pt reports burning sensation under L scapular and near T7 rib, worse with inhalation. Reports min relief with mobilization (limited by time) PT-OP-T Assessment and Plan Start: 03/02/23 16:12 Freq: Status: Active Protocol: Document 04/08/23 12:19 NM (Rec: 04/08/23 13:02 NM [id number]) Physical Therapy Assessment Goals Eight Impairment ROM Impairment Global trunk ROM limited Short Term Goal (STG) Pt will improve global trunk ROM by at least 10 dg to demonstrate improved trunk mobility for strength and postural stability. 04/04/23: Flexion 60 deg, extension 25 deg STG Duration 6 visits MET Communications Administrator Goal (LTG) Pt will improve global trunk ROM by at least 15 dg to demonstrate improved trunk mobility for strength and postural stability. 04/04/23: Flexion 60 deg, extension 25 deg LTG Duration 12 visits MET Seven Impairment compliance, function, strength Short Term Goal (STG) Pt will report compliance with HEP at least 3x/wk to maximize gains made during PT sessions. STG Duration 6 visits Nursing Home Goal (LTG) Pt will report and maintain compliance with HEP at least 3x/wk to demonstrate independence and maintain gains after discharge. LTG Duration 12 visits Six Impairment Function Impairment NDI 21/50 Short Term Goal (STG) Pt will improve NDI score by at least 7 points in order to demonstrate better tolerance for activity. STG Duration 6 visits Communications Administrator Goal (LTG) Pt will improve NDI score by at least 14 points (MCID) in order to demonstrate better tolerance for activity. LTG Duration 12 visits Five Impairment function Impairment Pt reports unable to lift more than 20# due to pain Short Term Goal (STG) Pt will be able to lift at least 25# with 2/10 or less neck/back pain to demo improved activity tolerance and to return to PLOF. STG Duration 6 visits Communications Administrator Goal (LTG) Pt will be able to lift at least 40# (average windshield weight) with 2/10 or less neck /back pain to demo improved activity tolerance to return to PLOF. LTG Duration 12 visits Four Impairment Endurance, stability Impairment Deep Neck Flexor Endurance score 5 seconds Short Term Goal (STG) Pt's deep neck flexor endurance test will improve to at least 20 seconds in order to demonstrate improved cervical spine muscle endurance and strength. STG Duration 6 visits Nursing Home Goal (LTG) Pt's deep neck flexor endurance test will improve to at least 38 seconds (gender norm) in order to demonstrate improved cervical spine muscle endurance and strength. LTG Duration 12 visits Three Impairment strength Impairment Cervical spine strength B lateral flexion and rotation 3 +/5 Short Term Goal (STG) Pt will increase B cervical spine lateral flexion and rotation muscle test to at least 4-/5 to demonstrate improved strength and stability to return to PLOF. STG Duration 6 visits Communications Administrator Goal (LTG) Pt will increase B cervical spine lateral flexion and rotation muscle test to at least 4/5 to demonstrate improve strength and stability to return to PLOF. LTG Duration 12 visits Two Impairment ROM Impairment Cervical spine rotation ROM limited Short Term Goal (STG) Pt will increase cervical spine rotation ROM by at least 15 deg bilaterally for improved visual scanning during driving. STG Duration 6 visits MET Nursing Home Goal (LTG) Pt cervical spine rotation ROM will be within 10 deg of each other bilaterally for improved visual scanning during driving. MET 04/04/23: B C spine Rot AROM 90 deg LTG Duration 12 visits MET One Impairment ROM Impairment Cervical spine flex ROM 15 deg , ext ROM 30 deg Short Term Goal (STG) Pt will increase cervical spine sagittal ROM by at least 15 deg in ea direction to improve mobility to PLOF. 04/04/23: NOT MET flex ROM 25 deg (*10 deg inc), ext ROM 35 deg (*5 deg inc), 60 deg ext after mobilization STG Duration 6 visits NOT MET Nursing Home Goal (LTG) Pt will increase cervical spine sagittal ROM by at least 25 deg in ea direction to improve mobility to PLOF. LTG Duration 12 visits Assessment Summary Assessment Continued with thoracic/ cervical spine mobility and strengthening today. Progressed to mid rows using cables (lvl 1). Initiated scaption/fwd flex/lat raises wtih 1# weight, lat pull downs and upright rows with theraband/weights to begin BUE /trunk strengthening to return to PLOF. Pt does not report any pain with increased resistance or progressions. Requires cues for chin tuck and upright posture, correct execution. Will progress resistance next session as long as pt reports good tolerance of current resistance without difficulty. Continued with thoracic mobility as pt still reports stiffness. Pt also with report of burning sensation under L scapula, minimally reduced with seated rib and thoracic spine mobilization. Manual tmt consisting of soft tissue mobilization of interscapular muscles and cervical spine for remaining pain relief. Overall, pt demos improvement in exercise tolerance with fewer compensations/more repetitions and instances of self-manipulation. HEP: upright row, mid row pull, scaption, front raise. Pt has appt with doctor next week. Pt would benefit from skilled PT to address safe progression with resistance training, trunk/cervical spine strengthening, spinal mobility , and activity tolerance in order to return to PLOF and work. Physical Therapy Plan Frequency and Duration Frequency of Treatment 1-2x/wk, 12 visits Duration of treatment (weeks) 8 Plan of Care Start Date 03/02/23 Plan of Care End Date 04/20/23 Therapeutic Interventions Therapeutic Interventions Home Exercise Program,Joint Mobilizations,Manual Therapy, Neuromuscular Re-education, Patient/Caregiver Education, Self-Care/Home Management,Soft Tissue Mobilization, Therapeutic Activities, Therapeutic Exercises Modalities Cold Pack/Ice Massage,Electric Stimulation,Hot Packs, Iontophoresis,Ultrasound Next Visit Focus/Plan Next Note Type Progress Note Next Visit Plan Response last tx resisted LS flexion/rotation Next tx, continue DNF lift in supine toward goal endurance. Trial lifting (scaption, [place] lifting) POC: Continue with AAROM>AROM for cervical and thoracic spine. Begin isometric strengthening. Add B ER. Continue manual tx PN on 04/13
--- NOTE | 2023-04-22 16:21 | PT.OTN ---
Current Diagnoses Strain of muscle, fascia and tendon at neck level, subsequent encounter (04/22/23) Physical Therapy Treatment Note PT-OP-A Visit Information Start: 03/02/23 16:12 Freq: Status: Active Protocol: Document 04/22/23 08:15 NM (Rec: 04/22/23 09:01 NM [id number]) Out-Patient Physical Therapy Visit Information Visit Information Visit Type Progress Note Visit Note 01/27 Visit Start Time 08:15 Visit Stop Time 09:00 Total Visit Minutes 45 Visit Number 01/27 Evaluation Information Evaluation Date 03/02/23 PT-OP-B Current Condition Start: 03/02/23 16:12 Freq: Status: Active Protocol: Document 03/02/23 16:13 NM (Rec: 03/02/23 16:43 NM [id number]) Current Condition History of Current Condition Onset Date 01/19/23 Current Complaints neck and thoracic stiffness/ pain, muscle tightness, pressure in spine History of Current Condition Pt presents to clinic with cervical and thoracic pain beginning on 01/19/23 when pt was attempting set a windshield into a large car alone. He reports feeling something (cannot elaborate) in his R mid back when lifting the windshield and placing it in the car, but was not able to stop work due to a busy schedule. The next day his neck/back pain worsened and has not relented. The pain is most pronounced between his R scapula and spine, but he also has tenderness on the back of his head/neck. Symptoms also include neck/mid back stiffness along with tight muscles of the neck and between shoulder blades. He has been unable to work since 01/21/23. Pt had a previous shoulder surgery (biceps tendon/labrum repair) and had returned to work for about 6-7 months when the injury occurred. Treatment Goals Patient/Caregiver Goals Return to work, decrease pain Prior Functional Status Baseline Function- ADL's Independent Baseline Function- Mobility Independent Baseline Function- Work/School Able to perform most of job functions, has a trainee to help. He was completing a work conditioning program for prior shoulder surgery but did not complete program Current Functional Impairments (Reported) Functional Limitations- ADL's Able to perform ADLs with assistance due to pain Functional Limitations- Mobility/Gait Pain with movement (standing, walking) and sustained postures (sitting, standing) Functional Limitations- Work/School Currently unable to work due to pain PT-OP-C Subjective Start: 03/02/23 16:12 Freq: Status: Active Protocol: Document 04/22/23 08:15 NM (Rec: 04/22/23 09:01 NM [id number]) OP-PT Subjective Patient Comments Patient Comments Pt reports 4/10 neck pain and 5/10 thoracic spine pain, an increase since last session. Reports pain between shoulder blades with inspiration. He reports that he is extremely stressed due to work. He also has not been sleeping. He has been ibuprofen every 6 hours due to neck pain, 7 days. PT-OP-E Functional Tests Start: 03/02/23 16:12 Freq: Status: Active Protocol: Document 03/02/23 16:13 NM (Rec: 03/02/23 16:43 NM [id number]) Functional Tests Other Deep Neck Flexor Endurance Test Score 5 seconds (norm = 38 seconds) Comment Supine with neck in cervical retraction and neck flexion off table PT-OP-F Manual Assessment Start: 03/02/23 16:12 Freq: Status: Active Protocol: Document 03/02/23 16:13 NM (Rec: 03/02/23 16:43 NM [id number]) Manual Assessments Soft Tissue Assessment Soft Tissue Mobility Assessment Pt able to tolerate moderate intensity soft tissue assessment. Demos decreased soft tissue mobility of R upper trapezius, R SCM, B rhomboids, and B rotator cuff muscles. Joint Mobility Assessment Joint Mobility Assessment P-A springing of cervical and thoracic spinous processes have normal segmental mobility . Pt reports symptom relief with assessment. Decreased lower cervical spine mobility during L>R side glides, no pain or symptom provocation. Thoracic rib mobility and transverse process segmental mobility normal, as well; no pain or symptom provocation. PT-OP-G Mobility & Gait Start: 03/02/23 16:12 Freq: Status: Active Protocol: Document 03/02/23 16:13 NM (Rec: 03/02/23 16:43 NM [id number]) OP Gait Assessment Gait Gait Assistance Required: Independent PT-OP-H Neuro Start: 03/02/23 16:12 Freq: Status: Active Protocol: Document 03/02/23 16:13 NM (Rec: 03/02/23 16:43 NM [id number]) Sensation Evaluation Gross Sensation Gross Sensation WNL Comments Summary Comments Cervical, UE, thoracic dermatomes intact to light touch sensation bilaterally. PT-OP-J Posture/Palpation/Skin Start: 03/02/23 16:12 Freq: Status: Active Protocol: Document 03/02/23 16:13 NM (Rec: 03/02/23 16:43 NM [id number]) Posture Evaluation Position Standing Evaluation View Lateral Head/C-Spine Posture Forward Head T-Spine Posture Increased Kyphosis L-Spine Posture Decreased Lordosis Shoulder Posture (R) Elevated Scapula Posture (L) Elevated,(R) Elevated,(R) Tipped Arm Posture (L) Externally Rotated,(R) Externally Rotated Pelvis Posture Posterior Tilted Weight Distribution Balanced Hip Posture (L) Externally Rotated,(R) Externally Rotated Palpation Assessment Location Thoracic Spine Palpation Location Bilateral: Rhomboids, Mid- lower Trapezius, periscapular muscles Palpation Findings Soft Tissue Tightness,Muscle Guarding,Tenderness Palpation Details R Rhomboid more tender to palpation than L Cervical Spine Palpation Location Bilateral: suboccipitals, Upper trapezius, paraspinals, SCM, LS Palpation Findings Soft Tissue Tightness,Spasm, Muscle Guarding,Tenderness Palpation Details Spasm in B suboccipitals; tenderness in R upper trap/SCM - limiting mobility PT-OP-K Range of Motion Start: 03/02/23 16:12 Freq: Status: Active Protocol: Document 04/22/23 08:15 NM (Rec: 04/22/23 09:01 NM [id number]) Cervical Spine Range of Motion Cervical Spine Active Degrees Flexion 50 Extension 45 Rotation Left 90 Rotation Right 90 Lateral Flexion Left 30 Lateral Flexion Right 30 Comments Thoracic Spine flex: 60 deg ext: 20 deg B lateral flex: 25 deg L rotation: 10 cm R rotation: 10 cm PT-OP-L Special Tests Start: 03/02/23 16:12 Freq: Status: Active Protocol: Document 03/02/23 16:13 NM (Rec: 03/02/23 16:43 NM [id number]) Special Tests Cervical Spine Special Tests Transverse Ligament Test Results negative Comments no excessive motion Alar Ligament Test Results negative Comments no excessive motion in B lateral flexion or rotation Traction Test Results positive Comments relieves symptoms PT-OP-M Strength Start: 03/02/23 16:12 Freq: Status: Active Protocol: Document 04/22/23 08:15 NM (Rec: 04/22/23 09:01 NM [id number]) Cervical Spine Strength Cervical Spine Manual Muscle Testing Flexion (C1-2) 4+ Good+ Extension 4+ Good+ Rotation Left 4+ Good+ Rotation Right 4+ Good+ Lateral Flexion Left (C3) 4+ Good+ Lateral Flexion Right (C3) 4+ Good+ Trunk Strength Trunk Manual Muscle Testing Flexion 4 Good Extension 4+ Good+ Rotation Left 4+ Good+ Rotation Right 4+ Good+ Lateral Flexion Left 4+ Good+ Lateral Flexion Right 4+ Good+ Scapula Strength Scapula Manual Muscle Testing Left Elevation (C4) 4+ Good+ Adduction 4+ Good+ Abduction 4+ Good+ Depression 4+ Good+ Right Elevation (C4) 4 Good Adduction 4 Good Abduction 4 Good Depression 4 Good Comments Continues to be limited with RUE; however may be due to previous shoulder injury PT-OP-Q Treatments Start: 03/04/23 15:33 Freq: Status: Active Protocol: Document 04/22/23 08:15 NM (Rec: 04/22/23 09:01 NM [id number]) Gym Equipment Cable Column (Body Solid) Lat Pull Down Details straight arm Resistance lvl 2 (20#) Reps/Time 2x8, cues for scap setting; reports fatigue Row Details Mid row (cable) Resistance lvl 2 (20#) Reps/Time 4x5, cues for scap setting; reports no pain, only fatigue Therapeutic Exercises Sitting Exercises C Spine stretching Sitting Exercise Name 1. upper trap, 2. LS Side bilateral Equipment Used tensioning by holding chair with opposite hand Reps/Minutes 2x30 ea direction Standing Exercises Upright row Standing Exercise Name slight hip hinge Side bilateral Resistance 10# db ea hand Reps/Minutes 2x10 Comments cues for correct execution; fatiguing; reports feel it but no pain R shdl Arm elevation Standing Exercise Name 1. scaption, 2. fwd flex, 3. lateral flex Side bilateral Resistance 3# db ea hand Equipment Used short lever arm Reps/Minutes 2x10 ea Comments cues for chin tuck, correct execution Serratus punch Standing Exercise Name for serratus anterior activation Side bilateral Resistance [place] Reps/Minutes 2x10 ea Comments cues for protraction no shoulder rot; decreased resistance d/t elbow pain Therapeutic Activity Therapeutic Activity Box lifts Reps/Minutes 2x10 ea Comments 1. 20# 2. 25# Pt performing squat to lift box from elevated height (knee ), then from floor, transferring boxes between areas to simulate work environment Manual Therapy Treatment Soft Tissue Mobilization Thoracic Spine Body Location L rhomboids, subscapularis Mobilization Type Sustained Pressure Intensity/Depth Moderate Body Position Sidelying Comments MWM with protraction and retraction, PT supporting arm in sidelying. Lifting up under L scapula in axilla and under inferior border to address subscapularis m. Reports lessening of pain between shoulder blade with sustained pressure and massage Joint Mobilizations TS Joint Ribs ~T5-T9, transverse processes, post rib borders Direction P-A, posterolateral Grade III Body Position Sitting Comments Mobilization with trunk rotation and scapula movement to address ribs, transverse process rotation. Pt no longer reports burning sensation under L scapular. But continues to have pain near T7 rib, worse with inhalation. Reports min relief with mobilization PT-OP-T Assessment and Plan Start: 03/02/23 16:12 Freq: Status: Active Protocol: Document 04/22/23 08:15 NM (Rec: 04/22/23 09:01 NM [id number]) Physical Therapy Assessment Goals Eight Impairment ROM Impairment Global trunk ROM limited Short Term Goal (STG) Pt will improve global trunk ROM by at least 10 dg to demonstrate improved trunk mobility for strength and postural stability. 04/04/23: Flexion 60 deg, extension 25 deg STG Duration 6 visits MET Prison Goal (LTG) Pt will improve global trunk ROM by at least 15 dg to demonstrate improved trunk mobility for strength and postural stability. 04/04/23: Flexion 60 deg, extension 25 deg LTG Duration 12 visits MET Seven Impairment compliance, function, strength Short Term Goal (STG) Pt will report compliance with HEP at least 3x/wk to maximize gains made during PT sessions. STG Duration 6 visits Prison Goal (LTG) Pt will report and maintain compliance with HEP at least 3x/wk to demonstrate independence and maintain gains after discharge. 04/22/23: Reports compliance with HEP 2-3x/wk LTG Duration 12 visits PARTIALLY MET Six Impairment Function Impairment NDI 21/50 Short Term Goal (STG) Pt will improve NDI score by at least 7 points in order to demonstrate better tolerance for activity. STG Duration 6 visits NOT MET Prison Goal (LTG) Pt will improve NDI score by at least 14 points (MCID) in order to demonstrate better tolerance for activity. 04/22/23: 27/50, an increase ( worse) score since IE LTG Duration 12 visits NOT MET Five Impairment function Impairment Pt reports unable to lift more than 20# due to pain Short Term Goal (STG) Pt will be able to lift at least 25# with 2/10 or less neck/back pain to demo improved activity tolerance and to return to PLOF. 04/22/23: Able to lift 25# from floor and from elevated surface to mimic work environment with 2/10 pain; unable to increase resistance due to pain STG Duration 6 visits MET [employer] Goal (LTG) Pt will be able to lift at least 40# (average windshield weight) with 2/10 or less neck /back pain to demo improved activity tolerance to return to PLOF. 04/22/23: Able to lift 25# from floor and from elevated surface to mimic work environment with 2/10 pain; unable to increase resistance due to pain LTG Duration 12 visits NOT MET Four Impairment Endurance, stability Impairment Deep Neck Flexor Endurance score 5 seconds Short Term Goal (STG) Pt's deep neck flexor endurance test will improve to at least 20 seconds in order to demonstrate improved cervical spine muscle endurance and strength. STG Duration 6 visits [employer]ids Director Goal (LTG) Pt's deep neck flexor endurance test will improve to at least 38 seconds (gender norm) in order to demonstrate improved cervical spine muscle endurance and strength. 04/22/23: Able to hold DNF endurance test 38 seconds LTG Duration 12 visits MET Three Impairment strength Impairment Cervical spine strength B lateral flexion and rotation 3 +/5 Short Term Goal (STG) Pt will increase B cervical spine lateral flexion and rotation muscle test to at least 4-/5 to demonstrate improved strength and stability to return to PLOF. STG Duration 6 visits Prison Goal (LTG) Pt will increase B cervical spine lateral flexion and rotation muscle test to at least 4/5 to demonstrate improve strength and stability to return to PLOF. 04/22/23: Currently, B cervical spine lateral flexion/rotation MMT is 4+/5 against resistance, no pain reported LTG Duration 12 visits MET Two Impairment ROM Impairment Cervical spine rotation ROM limited Short Term Goal (STG) Pt will increase cervical spine rotation ROM by at least 15 deg bilaterally for improved visual scanning during driving. STG Duration 6 visits MET Prison Goal (LTG) Pt cervical spine rotation ROM will be within 10 deg of each other bilaterally for improved visual scanning during driving. MET 04/04/23: B C spine Rot AROM 90 deg LTG Duration 12 visits MET One Impairment ROM Impairment Cervical spine flex ROM 15 deg , ext ROM 30 deg Short Term Goal (STG) Pt will increase cervical spine sagittal ROM by at least 15 deg in ea direction to improve mobility to PLOF. 04/22/23: MET flexion 50 deg, ext 45 deg 04/04/23: NOT MET flex ROM 25 deg (*10 deg inc), ext ROM 35 deg (*5 deg inc), 60 deg ext after mobilization STG Duration 6 visits MET [employer] Director Goal (LTG) Pt will increase cervical spine sagittal ROM by at least 25 deg in ea direction to improve mobility to PLOF. 04/22/23: flexion 50 deg (a 35 deg increase), ext 45 deg (a 15 deg increase) LTG Duration 12 visits PARTIALLY MET, PROGRESSING Progress Towards Goals Progress Towards Goals Progressing Toward Goals,Slow Progress due to Activity Tolerance,Goals Met Assessment Summary Assessment Tmt session decreasing current pain levels and initiating lifting to simulate work environment. Pt able to lift 25# from floor and mid-kinney level using squat technique then carry to different location x10 ft. Pt reports minimal increased thorax pain at that load but is unable to progress to heavier load due to pain. Pt is concerned that when he returns to work, he will be unable to lift the expected >40# individually without re-injury. He would likely benefit from assistance during lifting heavier loads. Continued with and progressed row/lat pull/upright row down to cable machine. Issued as HEP; however, pt does not have access to gym so will have to use heavy resistance bands ( issued in PT). Manual tmt focusing on mobilizing R ribs at tranverse processes and improving thoracic rib mobility. Since IE, pt demos improved cervical and thoracic spine ROM and strength. He has met 4 LTGs, partially met a few, and is progressing toward the other goals. Pt reports that he is still limited his ability to perform ADLs/IADLs due to pain, particularly limited in lifting and sleeping. He continues to report pain at R rhomboid at rest, minimally during active contraction. He also reports recent R thorax pain with inspiration. Pt is a good candidate for work conditioning prior to return to work. PT is requesting additional visits to focus on progressively loading pt to return to lifting with or without modification. Pt would benefit from further skilled PT intervention to improve trunk, periscapular and shoulder strength for lifting in order to return to work. Physical Therapy Plan Frequency and Duration Frequency of Treatment 1-2x/wk, 8 visits Duration of treatment (weeks) 14 Plan of Care Start Date 03/02/23 Plan of Care End Date 06/03/23 Therapeutic Interventions Therapeutic Interventions Home Exercise Program,Joint Mobilizations,Manual Therapy, Neuromuscular Re-education, Patient/Caregiver Education, Self-Care/Home Management,Soft Tissue Mobilization, Therapeutic Activities, Therapeutic Exercises Modalities Cold Pack/Ice Massage,Electric Stimulation,Hot Packs, Iontophoresis,Ultrasound Next Visit Focus/Plan Next Note Type Treatment Note Next Visit Plan Continue lifting: scaption, over head lifting, upright row , lat pull down, row, shoulder press, D1-D2 Continue manual tx
--- NOTE | 2023-04-22 16:25 | PT.OPPOC ---
Physical, Occupational & Speech Therapy At [facility] Current Diagnoses Strain of muscle, fascia and tendon at neck level, subsequent encounter (04/22/23) Visit Care Team Role Provider Type Casper Amaro PA-C Primary Care Provider Non-Staff Specialty: Medical Address: [address] [place] [address], [id number] Email: Tylor Aguayo MD Attending Provider Non-Staff Referring Provider Specialty: Physical Medicine and Rehab Address: [address] [place], [address] Email: Plan Of Care PT-OP-T Assessment and Plan Start: 03/02/23 16:12 Freq: Status: Active Protocol: Document 04/22/23 08:15 NM (Rec: 04/22/23 09:01 NM [id number]) Physical Therapy Assessment Goals Eight Impairment ROM Impairment Global trunk ROM limited Short Term Goal (STG) Pt will improve global trunk ROM by at least 10 dg to demonstrate improved trunk mobility for strength and postural stability. 04/04/23: Flexion 60 deg, extension 25 deg STG Duration 6 visits MET Correction Goal (LTG) Pt will improve global trunk ROM by at least 15 dg to demonstrate improved trunk mobility for strength and postural stability. 04/04/23: Flexion 60 deg, extension 25 deg LTG Duration 12 visits MET Seven Impairment compliance, function, strength Short Term Goal (STG) Pt will report compliance with HEP at least 3x/wk to maximize gains made during PT sessions. STG Duration 6 visits Lock Master Goal (LTG) Pt will report and maintain compliance with HEP at least 3x/wk to demonstrate independence and maintain gains after discharge. 04/22/23: Reports compliance with HEP 2-3x/wk LTG Duration 12 visits PARTIALLY MET Six Impairment Function Impairment NDI 50 Short Term Goal (STG) Pt will improve NDI score by at least 7 points in order to demonstrate better tolerance for activity. STG Duration 6 visits NOT MET Lock Master Goal (LTG) Pt will improve NDI score by at least 14 points (MCID) in order to demonstrate better tolerance for activity. 04/22/23: , an increase ( worse) score since IE LTG Duration 12 visits NOT MET Five Impairment function Impairment Pt reports unable to lift more than 20# due to pain Short Term Goal (STG) Pt will be able to lift at least 25# with 2/10 or less neck/back pain to demo improved activity tolerance and to return to PLOF. 04/22/23: Able to lift 25# from floor and from elevated surface to mimic work environment with 2/10 pain; unable to increase resistance due to pain STG Duration 6 visits MET Correction Goal (LTG) Pt will be able to lift at least 40# (average windshield weight) with 2/10 or less neck /back pain to demo improved activity tolerance to return to PLOF. 04/22/23: Able to lift 25# from floor and from elevated surface to mimic work environment with 2/10 pain; unable to increase resistance due to pain LTG Duration 12 visits NOT MET Four Impairment Endurance, stability Impairment Deep Neck Flexor Endurance score 5 seconds Short Term Goal (STG) Pt's deep neck flexor endurance test will improve to at least 20 seconds in order to demonstrate improved cervical spine muscle endurance and strength. STG Duration 6 visits Correction Goal (LTG) Pt's deep neck flexor endurance test will improve to at least 38 seconds (gender norm) in order to demonstrate improved cervical spine muscle endurance and strength. 04/22/23: Able to hold DNF endurance test 38 seconds LTG Duration 12 visits MET Three Impairment strength Impairment Cervical spine strength B lateral flexion and rotation 3 +/5 Short Term Goal (STG) Pt will increase B cervical spine lateral flexion and rotation muscle test to at least 4-/5 to demonstrate improved strength and stability to return to PLOF. STG Duration 6 visits Correction Goal (LTG) Pt will increase B cervical spine lateral flexion and rotation muscle test to at least 4/5 to demonstrate improve strength and stability to return to PLOF. 04/22/23: Currently, B cervical spine lateral flexion/rotation MMT is 4+/5 against resistance, no pain reported LTG Duration 12 visits MET Two Impairment ROM Impairment Cervical spine rotation ROM limited Short Term Goal (STG) Pt will increase cervical spine rotation ROM by at least 15 deg bilaterally for improved visual scanning during driving. STG Duration 6 visits MET Lock Master Goal (LTG) Pt cervical spine rotation ROM will be within 10 deg of each other bilaterally for improved visual scanning during driving. MET 04/04/23: B C spine Rot AROM 90 deg LTG Duration 12 visits MET One Impairment ROM Impairment Cervical spine flex ROM 15 deg , ext ROM 30 deg Short Term Goal (STG) Pt will increase cervical spine sagittal ROM by at least 15 deg in ea direction to improve mobility to PLOF. 04/22/23: MET flexion 50 deg, ext 45 deg 04/04/23: NOT MET flex ROM 25 deg (*10 deg inc), ext ROM 35 deg (*5 deg inc), 60 deg ext after mobilization STG Duration 6 visits MET Correction Goal (LTG) Pt will increase cervical spine sagittal ROM by at least 25 deg in ea direction to improve mobility to PLOF. 04/22/23: flexion 50 deg (a 35 deg increase), ext 45 deg (a 15 deg increase) LTG Duration 12 visits PARTIALLY MET, PROGRESSING Progress Towards Goals Progress Towards Goals Progressing Toward Goals,Slow Progress due to Activity Tolerance,Goals Met Assessment Summary Assessment Tmt session decreasing current pain levels and initiating lifting to simulate work environment. Pt able to lift 25# from floor and mid-kinney level using squat technique then carry to different location x10 ft. Pt reports minimal increased thorax pain at that load but is unable to progress to heavier load due to pain. Pt is concerned that when he returns to work, he will be unable to lift the expected >40# individually without re-injury. He would likely benefit from assistance during lifting heavier loads. Continued with and progressed row/lat pull/upright row down to cable machine. Issued as HEP; however, pt does not have access to gym so will have to use heavy resistance bands ( issued in PT). Manual tmt focusing on mobilizing R ribs at tranverse processes and improving thoracic rib mobility. Since IE, pt demos improved cervical and thoracic spine ROM and strength. He has met 4 LTGs, partially met a few, and is progressing toward the other goals. Pt reports that he is still limited his ability to perform ADLs/IADLs due to pain, particularly limited in lifting and sleeping. He continues to report pain at R rhomboid at rest, minimally during active contraction. He also reports recent R thorax pain with inspiration. Pt is a good candidate for work conditioning prior to return to work. PT is requesting additional visits to focus on progressively loading pt to return to lifting with or without modification. Pt would benefit from further skilled PT intervention to improve trunk, periscapular and shoulder strength for lifting in order to return to work. Physical Therapy Plan Frequency and Duration Frequency of Treatment 1-2x/wk, 8 visits Duration of treatment (weeks) 14 Plan of Care Start Date 03/02/23 Plan of Care End Date 06/03/23 Therapeutic Interventions Therapeutic Interventions Home Exercise Program,Joint Mobilizations,Manual Therapy, Neuromuscular Re-education, Patient/Caregiver Education, Self-Care/Home Management,Soft Tissue Mobilization, Therapeutic Activities, Therapeutic Exercises Modalities Cold Pack/Ice Massage,Electric Stimulation,Hot Packs, Iontophoresis,Ultrasound Next Visit Focus/Plan Next Note Type Treatment Note Next Visit Plan Continue lifting: scaption, over head lifting, upright row , lat pull down, row, shoulder press, D1-D2 Continue manual tx Plan of Care Dates Plan of Care Start Date 03/02/23 Plan of Care End Date 06/03/23 Electronically Signed by: Magalys Crow, PT 04/22/23 [id number] If you are in agreement with this Plan of Care, please return a signed and dated copy. I have reviewed this Plan of Care and certify that the skilled therapy services above are required to meet the patient?s needs. Physician Signature Date Printed Name and Credentials Clinical Instructor Signature Printed Name and Credentials
--- NOTE | 2023-04-25 14:55 | PT.OTN ---
Current Diagnoses Strain of muscle, fascia and tendon at neck level, subsequent encounter (04/25/23) Physical Therapy Treatment Note PT-OP-A Visit Information Start: 03/02/23 16:12 Freq: Status: Active Protocol: Document 04/25/23 13:50 NM (Rec: 04/25/23 14:29 NM [id number]) Out-Patient Physical Therapy Visit Information Visit Information Visit Type Treatment Note Visit Note 02/27 Visit Start Time 13:50 Visit Stop Time 14:30 Total Visit Minutes 40 Visit Number 02/27 Evaluation Information Evaluation Date 03/02/23 PT-OP-B Current Condition Start: 03/02/23 16:12 Freq: Status: Active Protocol: Document 03/02/23 16:13 NM (Rec: 03/02/23 16:43 NM [id number]) Current Condition History of Current Condition Onset Date 01/19/23 Current Complaints neck and thoracic stiffness/ pain, muscle tightness, pressure in spine History of Current Condition Pt presents to clinic with cervical and thoracic pain beginning on 01/19/23 when pt was attempting set a windshield into a large car alone. He reports feeling something (cannot elaborate) in his R mid back when lifting the windshield and placing it in the car, but was not able to stop work due to a busy schedule. The next day his neck/back pain worsened and has not relented. The pain is most pronounced between his R scapula and spine, but he also has tenderness on the back of his head/neck. Symptoms also include neck/mid back stiffness along with tight muscles of the neck and between shoulder blades. He has been unable to work since 01/21/23. Pt had a previous shoulder surgery (biceps tendon/labrum repair) and had returned to work for about 6-7 months when the injury occurred. Treatment Goals Patient/Caregiver Goals Return to work, decrease pain Prior Functional Status Baseline Function- ADL's Independent Baseline Function- Mobility Independent Baseline Function- Work/School Able to perform most of job functions, has a trainee to help. He was completing a work conditioning program for prior shoulder surgery but did not complete program Current Functional Impairments (Reported) Functional Limitations- ADL's Able to perform ADLs with assistance due to pain Functional Limitations- Mobility/Gait Pain with movement (standing, walking) and sustained postures (sitting, standing) Functional Limitations- Work/School Currently unable to work due to pain PT-OP-C Subjective Start: 03/02/23 16:12 Freq: Status: Active Protocol: Document 04/25/23 13:50 NM (Rec: 04/25/23 14:29 NM [id number]) OP-PT Subjective Patient Comments Patient Comments Pt reports 5/10 neck pain, 7/ 10 mid-back pain. He reports that he is having difficulty sleeping due to pain. He continues to have brief pain with inspiration. PT-OP-E Functional Tests Start: 03/02/23 16:12 Freq: Status: Active Protocol: Document 03/02/23 16:13 NM (Rec: 03/02/23 16:43 NM [id number]) Functional Tests Other Deep Neck Flexor Endurance Test Score 5 seconds (norm = 38 seconds) Comment Supine with neck in cervical retraction and neck flexion off table PT-OP-F Manual Assessment Start: 03/02/23 16:12 Freq: Status: Active Protocol: Document 03/02/23 16:13 NM (Rec: 03/02/23 16:43 NM [id number]) Manual Assessments Soft Tissue Assessment Soft Tissue Mobility Assessment Pt able to tolerate moderate intensity soft tissue assessment. Demos decreased soft tissue mobility of R upper trapezius, R SCM, B rhomboids, and B rotator cuff muscles. Joint Mobility Assessment Joint Mobility Assessment P-A springing of cervical and thoracic spinous processes have normal segmental mobility . Pt reports symptom relief with assessment. Decreased lower cervical spine mobility during L>R side glides, no pain or symptom provocation. Thoracic rib mobility and transverse process segmental mobility normal, as well; no pain or symptom provocation. PT-OP-G Mobility & Gait Start: 03/02/23 16:12 Freq: Status: Active Protocol: Document 03/02/23 16:13 NM (Rec: 03/02/23 16:43 NM [id number]) OP Gait Assessment Gait Gait Assistance Required: Independent PT-OP-H Neuro Start: 03/02/23 16:12 Freq: Status: Active Protocol: Document 03/02/23 16:13 NM (Rec: 03/02/23 16:43 NM [id number]) Sensation Evaluation Gross Sensation Gross Sensation WNL Comments Summary Comments Cervical, UE, thoracic dermatomes intact to light touch sensation bilaterally. PT-OP-J Posture/Palpation/Skin Start: 03/02/23 16:12 Freq: Status: Active Protocol: Document 03/02/23 16:13 NM (Rec: 03/02/23 16:43 NM [id number]) Posture Evaluation Position Standing Evaluation View Lateral Head/C-Spine Posture Forward Head T-Spine Posture Increased Kyphosis L-Spine Posture Decreased Lordosis Shoulder Posture (R) Elevated Scapula Posture (L) Elevated,(R) Elevated,(R) Tipped Arm Posture (L) Externally Rotated,(R) Externally Rotated Pelvis Posture Posterior Tilted Weight Distribution Balanced Hip Posture (L) Externally Rotated,(R) Externally Rotated Palpation Assessment Location Thoracic Spine Palpation Location Bilateral: Rhomboids, Mid- lower Trapezius, periscapular muscles Palpation Findings Soft Tissue Tightness,Muscle Guarding,Tenderness Palpation Details R Rhomboid more tender to palpation than L Cervical Spine Palpation Location Bilateral: suboccipitals, Upper trapezius, paraspinals, SCM, LS Palpation Findings Soft Tissue Tightness,Spasm, Muscle Guarding,Tenderness Palpation Details Spasm in B suboccipitals; tenderness in R upper trap/SCM - limiting mobility PT-OP-K Range of Motion Start: 03/02/23 16:12 Freq: Status: Active Protocol: Document 04/22/23 08:15 NM (Rec: 04/22/23 09:01 NM [id number]) Cervical Spine Range of Motion Cervical Spine Active Degrees Flexion 50 Extension 45 Rotation Left 90 Rotation Right 90 Lateral Flexion Left 30 Lateral Flexion Right 30 Comments Thoracic Spine flex: 60 deg ext: 20 deg B lateral flex: 25 deg L rotation: 10 cm R rotation: 10 cm PT-OP-L Special Tests Start: 03/02/23 16:12 Freq: Status: Active Protocol: Document 03/02/23 16:13 NM (Rec: 03/02/23 16:43 NM [id number]) Special Tests Cervical Spine Special Tests Transverse Ligament Test Results negative Comments no excessive motion Alar Ligament Test Results negative Comments no excessive motion in B lateral flexion or rotation Traction Test Results positive Comments relieves symptoms PT-OP-M Strength Start: 03/02/23 16:12 Freq: Status: Active Protocol: Document 04/22/23 08:15 NM (Rec: 04/22/23 09:01 NM [id number]) Cervical Spine Strength Cervical Spine Manual Muscle Testing Flexion (C1-2) 4+ Good+ Extension 4+ Good+ Rotation Left 4+ Good+ Rotation Right 4+ Good+ Lateral Flexion Left (C3) 4+ Good+ Lateral Flexion Right (C3) 4+ Good+ Trunk Strength Trunk Manual Muscle Testing Flexion 4 Good Extension 4+ Good+ Rotation Left 4+ Good+ Rotation Right 4+ Good+ Lateral Flexion Left 4+ Good+ Lateral Flexion Right 4+ Good+ Scapula Strength Scapula Manual Muscle Testing Left Elevation (C4) 4+ Good+ Adduction 4+ Good+ Abduction 4+ Good+ Depression 4+ Good+ Right Elevation (C4) 4 Good Adduction 4 Good Abduction 4 Good Depression 4 Good Comments Continues to be limited with RUE; however may be due to previous shoulder injury PT-OP-Q Treatments Start: 03/04/23 15:33 Freq: Status: Active Protocol: Document 04/25/23 13:50 NM (Rec: 04/25/23 14:29 NM [id number]) Cardio Equipment Upper Body Ergometer (UBE) Duration (Minutes) 3 RPM 15 Other warm up; 1.5 fwd, 1.5 bwd Gym Equipment Cable Column (Body Solid) Lat Pull Down Details seated, to chest Resistance lvl 3 (30#), lvl 2 (20#) Reps/Time 2x10 at lvl 3, 1x10 at lvl 2; fatiguing Row Details Mid row (cable) Resistance lvl 2 (20#) Reps/Time 2x10, cues for scap setting; reports no pain, only fatigue Therapeutic Exercises Sitting Exercises Crossed arm stretch Sitting Exercise Name stretching supraspinatus, RTC, post shldr capsule for pain relief Side bilateral Reps/Minutes 2x20 ea Comments cues for palm up; btwn sets of rows lat stretch Sitting Exercise Name seated fwd lat stretch Side bilateral Reps/Minutes 2x30 Comments btwn sets of lat pull down as rest, for relaxation Standing Exercises B shldr ER + flex Standing Exercise Name RTC strengthening with scap setting and cervical retraction Side bilateral Resistance [place] green tb Equipment Used cues for scap setting, chin tuck Reps/Minutes 1x10 Comments trialed for RTC/periscap strengthening to address muscle strain shoulder press Side bilateral Resistance 8# db ea hand Equipment Used seated in inclined chair for back rest Reps/Minutes 2x12 Comments reports good resistance, will progress next time; min shldr pain with eccen Arm elevation Standing Exercise Name 1. scaption, 2. fwd flex, 3. lateral flex Side bilateral Resistance 5# db ea hand Equipment Used short lever arm Reps/Minutes 2x5 ea due to increased weight Comments cues for chin tuck, correct execution; reports best feedback with deltoid Manual Therapy Treatment Soft Tissue Mobilization Thoracic Spine Body Location R rhomboids, RTC, LS Mobilization Type Rolling,Strumming,Sustained Pressure Intensity/Depth Moderate Body Position Sidelying Comments Continues to have tender point in R rhomboids, R supraspinatus, R levator scapulae. Demos mild spasms of R rhomboids, relieved with sustained pressure. No trigger points noted. Joint Mobilizations Scapulothoracic Direction M/L, protract/retract, elev/ dep Grade III Body Position Sidelying Reps/Duration 4x30 Comments AROM of scapula for improved scapular mobility, shamir during arm elevation. Performed in between soft tissue mobilization for improved scapular muscle activation after relaxation for contract- relax type tmt. PT-OP-T Assessment and Plan Start: 03/02/23 16:12 Freq: Status: Active Protocol: Document 04/25/23 13:50 NM (Rec: 04/25/23 14:29 NM [id number]) Physical Therapy Assessment Goals Eight Impairment ROM Impairment Global trunk ROM limited Short Term Goal (STG) Pt will improve global trunk ROM by at least 10 dg to demonstrate improved trunk mobility for strength and postural stability. 04/04/23: Flexion 60 deg, extension 25 deg STG Duration 6 visits MET Drupal Programmer Goal (LTG) Pt will improve global trunk ROM by at least 15 dg to demonstrate improved trunk mobility for strength and postural stability. 04/04/23: Flexion 60 deg, extension 25 deg LTG Duration 12 visits MET Seven Impairment compliance, function, strength Short Term Goal (STG) Pt will report compliance with HEP at least 3x/wk to maximize gains made during PT sessions. STG Duration 6 visits Drupal Programmer Goal (LTG) Pt will report and maintain compliance with HEP at least 3x/wk to demonstrate independence and maintain gains after discharge. 04/22/23: Reports compliance with HEP 2-3x/wk LTG Duration 12 visits PARTIALLY MET Six Impairment Function Impairment NDI 21/50 Short Term Goal (STG) Pt will improve NDI score by at least 7 points in order to demonstrate better tolerance for activity. STG Duration 6 visits NOT MET Drupal Programmer Goal (LTG) Pt will improve NDI score by at least 14 points (MCID) in order to demonstrate better tolerance for activity. 04/22/23: 27/50, an increase ( worse) score since IE LTG Duration 12 visits NOT MET Five Impairment function Impairment Pt reports unable to lift more than 20# due to pain Short Term Goal (STG) Pt will be able to lift at least 25# with 2/10 or less neck/back pain to demo improved activity tolerance and to return to PLOF. 04/22/23: Able to lift 25# from floor and from elevated surface to mimic work environment with 2/10 pain; unable to increase resistance due to pain STG Duration 6 visits MET Prison Goal (LTG) Pt will be able to lift at least 40# (average windshield weight) with 2/10 or less neck /back pain to demo improved activity tolerance to return to PLOF. 04/22/23: Able to lift 25# from floor and from elevated surface to mimic work environment with 2/10 pain; unable to increase resistance due to pain LTG Duration 12 visits NOT MET Four Impairment Endurance, stability Impairment Deep Neck Flexor Endurance score 5 seconds Short Term Goal (STG) Pt's deep neck flexor endurance test will improve to at least 20 seconds in order to demonstrate improved cervical spine muscle endurance and strength. STG Duration 6 visits Drupal Programmer Goal (LTG) Pt's deep neck flexor endurance test will improve to at least 38 seconds (gender norm) in order to demonstrate improved cervical spine muscle endurance and strength. 04/22/23: Able to hold DNF endurance test 38 seconds LTG Duration 12 visits MET Three Impairment strength Impairment Cervical spine strength B lateral flexion and rotation 3 +/5 Short Term Goal (STG) Pt will increase B cervical spine lateral flexion and rotation muscle test to at least 4-/5 to demonstrate improved strength and stability to return to PLOF. STG Duration 6 visits Drupal Programmer Goal (LTG) Pt will increase B cervical spine lateral flexion and rotation muscle test to at least 4/5 to demonstrate improve strength and stability to return to PLOF. 04/22/23: Currently, B cervical spine lateral flexion/rotation MMT is 4+/5 against resistance, no pain reported LTG Duration 12 visits MET Two Impairment ROM Impairment Cervical spine rotation ROM limited Short Term Goal (STG) Pt will increase cervical spine rotation ROM by at least 15 deg bilaterally for improved visual scanning during driving. STG Duration 6 visits MET Prison Goal (LTG) Pt cervical spine rotation ROM will be within 10 deg of each other bilaterally for improved visual scanning during driving. MET 04/04/23: B C spine Rot AROM 90 deg LTG Duration 12 visits MET One Impairment ROM Impairment Cervical spine flex ROM 15 deg , ext ROM 30 deg Short Term Goal (STG) Pt will increase cervical spine sagittal ROM by at least 15 deg in ea direction to improve mobility to PLOF. 04/22/23: MET flexion 50 deg, ext 45 deg 04/04/23: NOT MET flex ROM 25 deg (*10 deg inc), ext ROM 35 deg (*5 deg inc), 60 deg ext after mobilization STG Duration 6 visits MET Prison Goal (LTG) Pt will increase cervical spine sagittal ROM by at least 25 deg in ea direction to improve mobility to PLOF. 04/22/23: flexion 50 deg (a 35 deg increase), ext 45 deg (a 15 deg increase) LTG Duration 12 visits PARTIALLY MET, PROGRESSING Assessment Summary Assessment Continued with BUE and trunk strengthening, adding lifting to slowly working to improve pt's cervical/thoracic spine tolerance to increased load. Pt demos improved performance at lat pull down, row today compared to previous session; able to increase resistance by 1 lvl (~10#) or perform more repetitions at same resistance , which is still fatiguing but not painful. Added seated shoulder press to begin overhead lifting and B shoulder ER with flexion to address rotator cuff/ periscapular strength. Pt consistently requires verbal and occasional tactile cues for scapular setting and minimal cervical retraction to maximize scapular/spinal stability during lifting to limit risk of re-injury. Will progress resistance as tolerated. Continued with scaption/front/lateral raises but increased resistance ( lower reps). HEP updated with seated shoulder press and pt instructed to increase resistance to front/lateral raises already on HEP. Manual tmt for scapulothoracic mobilization, soft tissue mobilization of periscapular muscles for pain reduction. Pt has mild spasms in R rhomboids still, which is decreased with mobilization. Pt continues to be a good candidate for work conditioning after discharge from PT. Pt would benefit from skilled PT in order to progressively load resistance training in order to return to PLOF and return to work. Physical Therapy Plan Frequency and Duration Frequency of Treatment 1-2x/wk, 8 visits Duration of treatment (weeks) 14 Plan of Care Start Date 03/02/23 Plan of Care End Date 06/03/23 Therapeutic Interventions Therapeutic Interventions Home Exercise Program,Joint Mobilizations,Manual Therapy, Neuromuscular Re-education, Patient/Caregiver Education, Self-Care/Home Management,Soft Tissue Mobilization, Therapeutic Activities, Therapeutic Exercises Modalities Cold Pack/Ice Massage,Electric Stimulation,Hot Packs, Iontophoresis,Ultrasound Next Visit Focus/Plan Next Note Type Treatment Note Next Visit Plan Continue lifting and progress: scaption, over head lifting, upright row, lat pull down ( progress), row (progress), shoulder press (progress), D1- D2; continue serratus punch etc. revisit cervical spine stretches. Add bicep upper cut . Postural and lifting mechanics education for safety . Add squat + overhead lift Continue manual tx, possible rib mobilization
--- NOTE | 2023-05-02 11:11 | PT-OP ANOTE ---
PEST CONTROLLER ASSISTANT called claims manage Any today 05/03/23 regarding pt missed appt yesterday 05/02 left message as instructed to PT dept needed for missed NS or cancelled appt, claims office closed yesterday and automated message stated call back today. Pt called 11:11 am <24 hrs 05/02/23, stating unable attend yesterday's appt due to being sick.
--- NOTE | 2023-05-05 15:51 | PT-OP ANOTE ---
COMMUNITY HEALTH OUTREACH WORKER spoke with Claim's Human Resources Support Specialist Any, voice message yesterday regarding Missed 05/02 appt didn't come through so called back to discuss reasoning of call. COMMUNITY HEALTH OUTREACH WORKER discussed with her pt cancelled 05/02 reported sick and 05/05 due to unsafe [place]. Ayn confirmed and will make note of cancels.
--- NOTE | 2023-05-17 10:24 | PT.OTN ---
Current Diagnoses Strain of muscle, fascia and tendon at neck level, subsequent encounter (05/17/23) Physical Therapy Treatment Note PT-OP-A Visit Information Start: 03/02/23 16:12 Freq: Status: Active Protocol: Document 05/17/23 09:09 NM (Rec: 05/17/23 10:23 NM [id number]) Out-Patient Physical Therapy Visit Information Visit Information Visit Type Treatment Note Visit Note 03/29 (restarts 05/19 with new plan) Pt late Visit Start Time 09:08 Visit Stop Time 09:50 Visit Number 03/29 Evaluation Information Evaluation Date 03/02/23 PT-OP-B Current Condition Start: 03/02/23 16:12 Freq: Status: Active Protocol: Document 03/02/23 16:13 NM (Rec: 03/02/23 16:43 NM [id number]) Current Condition History of Current Condition Onset Date 01/19/23 Current Complaints neck and thoracic stiffness/ pain, muscle tightness, pressure in spine History of Current Condition Pt presents to clinic with cervical and thoracic pain beginning on 01/19/23 when pt was attempting set a windshield into a large car alone. He reports feeling something (cannot elaborate) in his R mid back when lifting the windshield and placing it in the car, but was not able to stop work due to a busy schedule. The next day his neck/back pain worsened and has not relented. The pain is most pronounced between his R scapula and spine, but he also has tenderness on the back of his head/neck. Symptoms also include neck/mid back stiffness along with tight muscles of the neck and between shoulder blades. He has been unable to work since 01/21/23. Pt had a previous shoulder surgery (biceps tendon/labrum repair) and had returned to work for about 6-7 months when the injury occurred. Treatment Goals Patient/Caregiver Goals Return to work, decrease pain Prior Functional Status Baseline Function- ADL's Independent Baseline Function- Mobility Independent Baseline Function- Work/School Able to perform most of job functions, has a trainee to help. He was completing a work conditioning program for prior shoulder surgery but did not complete program Current Functional Impairments (Reported) Functional Limitations- ADL's Able to perform ADLs with assistance due to pain Functional Limitations- Mobility/Gait Pain with movement (standing, walking) and sustained postures (sitting, standing) Functional Limitations- Work/School Currently unable to work due to pain PT-OP-C Subjective Start: 03/02/23 16:12 Freq: Status: Active Protocol: Document 05/17/23 09:09 NM (Rec: 05/17/23 10:23 NM [id number]) OP-PT Subjective Patient Comments Patient Comments Pt reports 5/10 neck pain and stiffness. He reports compliance with HEP, but has difficulty with completing lifting exercises due to unable to attend gym or find comparable items around home. Pt has been referred to ortho specialist on 05/31 for the spine. Pt late today but able to stay later after session PT-OP-E Functional Tests Start: 03/02/23 16:12 Freq: Status: Active Protocol: Document 03/02/23 16:13 NM (Rec: 03/02/23 16:43 NM [id number]) Functional Tests Other Deep Neck Flexor Endurance Test Score 5 seconds (norm = 38 seconds) Comment Supine with neck in cervical retraction and neck flexion off table PT-OP-F Manual Assessment Start: 03/02/23 16:12 Freq: Status: Active Protocol: Document 03/02/23 16:13 NM (Rec: 03/02/23 16:43 NM [id number]) Manual Assessments Soft Tissue Assessment Soft Tissue Mobility Assessment Pt able to tolerate moderate intensity soft tissue assessment. Demos decreased soft tissue mobility of R upper trapezius, R SCM, B rhomboids, and B rotator cuff muscles. Joint Mobility Assessment Joint Mobility Assessment P-A springing of cervical and thoracic spinous processes have normal segmental mobility . Pt reports symptom relief with assessment. Decreased lower cervical spine mobility during L>R side glides, no pain or symptom provocation. Thoracic rib mobility and transverse process segmental mobility normal, as well; no pain or symptom provocation. PT-OP-G Mobility & Gait Start: 03/02/23 16:12 Freq: Status: Active Protocol: Document 03/02/23 16:13 NM (Rec: 03/02/23 16:43 NM [id number]) OP Gait Assessment Gait Gait Assistance Required: Independent PT-OP-H Neuro Start: 03/02/23 16:12 Freq: Status: Active Protocol: Document 03/02/23 16:13 NM (Rec: 03/02/23 16:43 NM [id number]) Sensation Evaluation Gross Sensation Gross Sensation WNL Comments Summary Comments Cervical, UE, thoracic dermatomes intact to light touch sensation bilaterally. PT-OP-J Posture/Palpation/Skin Start: 03/02/23 16:12 Freq: Status: Active Protocol: Document 03/02/23 16:13 NM (Rec: 03/02/23 16:43 NM [id number]) Posture Evaluation Position Standing Evaluation View Lateral Head/C-Spine Posture Forward Head T-Spine Posture Increased Kyphosis L-Spine Posture Decreased Lordosis Shoulder Posture (R) Elevated Scapula Posture (L) Elevated,(R) Elevated,(R) Tipped Arm Posture (L) Externally Rotated,(R) Externally Rotated Pelvis Posture Posterior Tilted Weight Distribution Balanced Hip Posture (L) Externally Rotated,(R) Externally Rotated Palpation Assessment Location Thoracic Spine Palpation Location Bilateral: Rhomboids, Mid- lower Trapezius, periscapular muscles Palpation Findings Soft Tissue Tightness,Muscle Guarding,Tenderness Palpation Details R Rhomboid more tender to palpation than L Cervical Spine Palpation Location Bilateral: suboccipitals, Upper trapezius, paraspinals, SCM, LS Palpation Findings Soft Tissue Tightness,Spasm, Muscle Guarding,Tenderness Palpation Details Spasm in B suboccipitals; tenderness in R upper trap/SCM - limiting mobility PT-OP-K Range of Motion Start: 03/02/23 16:12 Freq: Status: Active Protocol: Document 04/22/23 08:15 NM (Rec: 04/22/23 09:01 NM [id number]) Cervical Spine Range of Motion Cervical Spine Active Degrees Flexion 50 Extension 45 Rotation Left 90 Rotation Right 90 Lateral Flexion Left 30 Lateral Flexion Right 30 Comments Thoracic Spine flex: 60 deg ext: 20 deg B lateral flex: 25 deg L rotation: 10 cm R rotation: 10 cm PT-OP-L Special Tests Start: 03/02/23 16:12 Freq: Status: Active Protocol: Document 03/02/23 16:13 NM (Rec: 03/02/23 16:43 NM [id number]) Special Tests Cervical Spine Special Tests Transverse Ligament Test Results negative Comments no excessive motion Alar Ligament Test Results negative Comments no excessive motion in B lateral flexion or rotation Traction Test Results positive Comments relieves symptoms PT-OP-M Strength Start: 03/02/23 16:12 Freq: Status: Active Protocol: Document 04/22/23 08:15 NM (Rec: 04/22/23 09:01 NM [id number]) Cervical Spine Strength Cervical Spine Manual Muscle Testing Flexion (C1-2) 4+ Good+ Extension 4+ Good+ Rotation Left 4+ Good+ Rotation Right 4+ Good+ Lateral Flexion Left (C3) 4+ Good+ Lateral Flexion Right (C3) 4+ Good+ Trunk Strength Trunk Manual Muscle Testing Flexion 4 Good Extension 4+ Good+ Rotation Left 4+ Good+ Rotation Right 4+ Good+ Lateral Flexion Left 4+ Good+ Lateral Flexion Right 4+ Good+ Scapula Strength Scapula Manual Muscle Testing Left Elevation (C4) 4+ Good+ Adduction 4+ Good+ Abduction 4+ Good+ Depression 4+ Good+ Right Elevation (C4) 4 Good Adduction 4 Good Abduction 4 Good Depression 4 Good Comments Continues to be limited with RUE; however may be due to previous shoulder injury PT-OP-Q Treatments Start: 03/04/23 15:33 Freq: Status: Active Protocol: Document 05/17/23 09:09 NM (Rec: 05/17/23 10:23 NM [id number]) Cardio Equipment Upper Body Ergometer (UBE) Duration (Minutes) 3 RPM 15 Other warm up, to decrease stiffness Gym Equipment Cable Column (Body Solid) Low row Details standing (cable); slight hip hinge Resistance lvl 2 (20#) Reps/Time 2x10, cues for scap setting/ retract; no pain Lat Pull Down Details seated, to chest Resistance lvl 3 (30#) Reps/Time 2x10; fatiguing but no pain Row Details Mid row (cable) Resistance lvl 2 (30#) Reps/Time 2x10, cues for scap setting; no rhomboid pain Therapeutic Exercises Supine Exercises UE AROM Supine Exercise Name MWM on rhomboid with shoulder flex Side bilateral Equipment Used AROM; STM ball at rhomboid at pt restricted point Reps/Minutes 1x10 ea Comments L>R, minimal pain reported at rhomboid Sitting Exercises Crossed arm stretch Sitting Exercise Name stretching supraspinatus, RTC, post shldr capsule/rhomboid for pain relief Side bilateral Reps/Minutes 2x30 ea Comments cues for palm up; after lat pulldown and rows Standing Exercises Wall push up Standing Exercise Name 1. push up plus with band Side bilateral Resistance [place] tb (lvl 3) Equipment Used wall, arms at shldr height Reps/Minutes 2x15 ea Comments cued good scap mobility, reports min R rhomboid pain with protraction Manual Therapy Treatment Soft Tissue Mobilization Thoracic Spine Body Location R rhomboids, LS, paraspinals Mobilization Type Rolling,Strumming,Sustained Pressure Intensity/Depth Moderate Body Position Sidelying Comments Tenderness of B rhomboids (L>R today). Performed soft tissue and MWM with pt: 1. supine with pt performing shoulder flex AROM while mobilizing on small ball, 1x10 2. sidelying with focus on rhomboids (L>R) as pt perform shoulder flex AROM 3. sitting with cervical flex/ ext and thoracic flex>ext posture then with crossed arms > scap retraction, PT performing STM on B rhomboids, paraspinals, 1x5 ea Cervical Spine Body Location B UT, B LS, suboccipitals Mobilization Type Myofascial Release,Sustained Pressure Intensity/Depth Moderate Body Position Hooklying Comments Pt with mild spasm and stiffness today in suboccipitals, B UT/LS with sustained pressure, decreased with mobilization, slight traction simulataneously. No trigger points. Performed prior to passive stretching, demos improved ROM and tissue relaxation prior Joint Mobilizations C spine Direction side glides, upglides, downglides at C3-C7 Grade III Body Position Supine Reps/Duration 1x30 ea Comments Oscillatory grade II> III glides to improve ROM and manage pain levels at C3-C7. Pt feels most restriction at R mid-cervical; however, demos decreased glide mobility on L facets. Performed with AAROM cervical spine rot/lateral flex Scapulothoracic Joint bilateral Direction protraction/retraction Grade III Body Position Sidelying Reps/Duration 1x5 ea MWM, the contract-relax Comments First AROM with PT supported pt arm during protract/retract while mobilizing scapula into greater ROM. Then Mob with movement then contract-relax with scapular protraction/ retraction with serratus/ rhomboids with sustained pressure and strumming soft tissue mobilization at B rhomboids between reps. Manual Techniques PROM Type passive B cervical spine (UT, LS, SCM) stretches Body Position Supine Reps/Duration 2x30 ea Comments PT supporting pt head, passively positioning pt into stretch for UT/LS/SCM with PT depressing shoulder for greater stretch/tissue elasticity. Pt reports good feedback with stretch, no pain , improved ROM post stretching PT-OP-T Assessment and Plan Start: 03/02/23 16:12 Freq: Status: Active Protocol: Document 05/17/23 09:09 NM (Rec: 05/17/23 10:23 NM [id number]) Physical Therapy Assessment Goals Eight Impairment ROM Impairment Global trunk ROM limited Short Term Goal (STG) Pt will improve global trunk ROM by at least 10 dg to demonstrate improved trunk mobility for strength and postural stability. 04/04/23: Flexion 60 deg, extension 25 deg STG Duration 6 visits MET [employer] Goal (LTG) Pt will improve global trunk ROM by at least 15 dg to demonstrate improved trunk mobility for strength and postural stability. 04/04/23: Flexion 60 deg, extension 25 deg LTG Duration 12 visits MET Seven Impairment compliance, function, strength Short Term Goal (STG) Pt will report compliance with HEP at least 3x/wk to maximize gains made during PT sessions. STG Duration 6 visits Halfway Goal (LTG) Pt will report and maintain compliance with HEP at least 3x/wk to demonstrate independence and maintain gains after discharge. 04/22/23: Reports compliance with HEP 2-3x/wk LTG Duration 12 visits PARTIALLY MET Six Impairment Function Impairment NDI 21/50 Short Term Goal (STG) Pt will improve NDI score by at least 7 points in order to demonstrate better tolerance for activity. STG Duration 6 visits NOT MET [employer] Goal (LTG) Pt will improve NDI score by at least 14 points (MCID) in order to demonstrate better tolerance for activity. 04/22/23: 27/50, an increase ( worse) score since IE LTG Duration 12 visits NOT MET Five Impairment function Impairment Pt reports unable to lift more than 20# due to pain Short Term Goal (STG) Pt will be able to lift at least 25# with 2/10 or less neck/back pain to demo improved activity tolerance and to return to PLOF. 04/22/23: Able to lift 25# from floor and from elevated surface to mimic work environment with 2/10 pain; unable to increase resistance due to pain STG Duration 6 visits MET [employer] Goal (LTG) Pt will be able to lift at least 40# (average windshield weight) with 2/10 or less neck /back pain to demo improved activity tolerance to return to PLOF. 04/22/23: Able to lift 25# from floor and from elevated surface to mimic work environment with 2/10 pain; unable to increase resistance due to pain LTG Duration 12 visits NOT MET Four Impairment Endurance, stability Impairment Deep Neck Flexor Endurance score 5 seconds Short Term Goal (STG) Pt's deep neck flexor endurance test will improve to at least 20 seconds in order to demonstrate improved cervical spine muscle endurance and strength. STG Duration 6 visits [employer] Goal (LTG) Pt's deep neck flexor endurance test will improve to at least 38 seconds (gender norm) in order to demonstrate improved cervical spine muscle endurance and strength. 04/22/23: Able to hold DNF endurance test 38 seconds LTG Duration 12 visits MET Three Impairment strength Impairment Cervical spine strength B lateral flexion and rotation 3 +/5 Short Term Goal (STG) Pt will increase B cervical spine lateral flexion and rotation muscle test to at least 4-/5 to demonstrate improved strength and stability to return to PLOF. STG Duration 6 visits [employer] Goal (LTG) Pt will increase B cervical spine lateral flexion and rotation muscle test to at least 4/5 to demonstrate improve strength and stability to return to PLOF. 04/22/23: Currently, B cervical spine lateral flexion/rotation MMT is 4+/5 against resistance, no pain reported LTG Duration 12 visits MET Two Impairment ROM Impairment Cervical spine rotation ROM limited Short Term Goal (STG) Pt will increase cervical spine rotation ROM by at least 15 deg bilaterally for improved visual scanning during driving. STG Duration 6 visits MET Halfway Goal (LTG) Pt cervical spine rotation ROM will be within 10 deg of each other bilaterally for improved visual scanning during driving. MET 04/04/23: B C spine Rot AROM 90 deg LTG Duration 12 visits MET One Impairment ROM Impairment Cervical spine flex ROM 15 deg , ext ROM 30 deg Short Term Goal (STG) Pt will increase cervical spine sagittal ROM by at least 15 deg in ea direction to improve mobility to PLOF. 04/22/23: MET flexion 50 deg, ext 45 deg 04/04/23: NOT MET flex ROM 25 deg (*10 deg inc), ext ROM 35 deg (*5 deg inc), 60 deg ext after mobilization STG Duration 6 visits MET [employer] Goal (LTG) Pt will increase cervical spine sagittal ROM by at least 25 deg in ea direction to improve mobility to PLOF. 05/16/23: flex 55 deg, ext 55 deg (post mobilization at B rhomboids) 04/22/23: flexion 50 deg (a 35 deg increase), ext 45 deg (a 15 deg increase) LTG Duration 12 visits MET Assessment Summary Assessment Due to pt pain levels at B periscapular muscles, started with manual treatment to decrease pain levels and improve mobility. Pt has decreased mobility on L cervical spine during mobilizations, improved mobility after grade II-III side glides using mobilization with movement and passive stretching. Met cervical ROM goal with 55 deg cervical flex and ext. Emphasis on soft tissue mobilization of B rhomboids near inferior scapular angle. Pt moved through series of supine and seated cervical flex/ext, scapular motions to encourage greater movement and pain relief. Followed mobilization with strengthening to retrain muscles into correct movement patterns and for strengthening in order for pt to return to PLOF. Progressed resistance for mid-rows, lat pull downs; added low rows to simulate lifting from floor and wall push ups for scapular mobility and functional strengthening. Pt cued pt for correct body mechanics during lifts, especially hip hinge and scapular setting/upright posture to limit compensations and retrain for work requirements. Pt tolerates well without increased pain symptoms. Reports 4/10 rhomboid pain at conclusion of session but reports increased muscle relaxation. PT educated pt on use of heat and continued soft tissue mobilization prior to exercise in order to decrease pain symptoms; pt verbalizes understanding. Pt would benefit from skilled PT to reduce pain symptoms and for progressive strengthening for return to PLOF. Physical Therapy Plan Frequency and Duration Frequency of Treatment 1-2x/wk, 8 visits Duration of treatment (weeks) 14 Plan of Care Start Date 03/02/23 Plan of Care End Date 06/03/23 Therapeutic Interventions Therapeutic Interventions Home Exercise Program,Joint Mobilizations,Manual Therapy, Neuromuscular Re-education, Patient/Caregiver Education, Self-Care/Home Management,Soft Tissue Mobilization, Therapeutic Activities, Therapeutic Exercises Modalities Cold Pack/Ice Massage,Electric Stimulation,Hot Packs, Iontophoresis,Ultrasound Next Visit Focus/Plan Next Note Type Treatment Note Next Visit Plan Continue lifting and progress: scaption, over head lifting, upright row, lat pull down ( progress), row (progress), shoulder press (progress), D1- D2; continue serratus punch etc. Add bicep upper cut. Postural and lifting mechanics education for safety. Add squat + overhead lift Continue manual tx, possible rib mobilization *PN soon to extend POC
--- NOTE | 2023-05-19 15:40 | PT.OTN ---
Current Diagnoses Strain of muscle, fascia and tendon at neck level, subsequent encounter (05/19/23) Physical Therapy Treatment Note PT-OP-A Visit Information Start: 03/02/23 16:12 Freq: Status: Active Protocol: Document 05/19/23 14:38 NM (Rec: 05/19/23 15:40 NM [id number]) Out-Patient Physical Therapy Visit Information Visit Information Visit Type Treatment Note Visit Note 04/29 Visit Start Time 14:34 Visit Stop Time 15:15 Visit Number 04/29 Evaluation Information Evaluation Date 03/02/23 PT-OP-B Current Condition Start: 03/02/23 16:12 Freq: Status: Active Protocol: Document 03/02/23 16:13 NM (Rec: 03/02/23 16:43 NM [id number]) Current Condition History of Current Condition Onset Date 01/19/23 Current Complaints neck and thoracic stiffness/ pain, muscle tightness, pressure in spine History of Current Condition Pt presents to clinic with cervical and thoracic pain beginning on 01/19/23 when pt was attempting set a windshield into a large car alone. He reports feeling something (cannot elaborate) in his R mid back when lifting the windshield and placing it in the car, but was not able to stop work due to a busy schedule. The next day his neck/back pain worsened and has not relented. The pain is most pronounced between his R scapula and spine, but he also has tenderness on the back of his head/neck. Symptoms also include neck/mid back stiffness along with tight muscles of the neck and between shoulder blades. He has been unable to work since 01/21/23. Pt had a previous shoulder surgery (biceps tendon/labrum repair) and had returned to work for about 6-7 months when the injury occurred. Treatment Goals Patient/Caregiver Goals Return to work, decrease pain Prior Functional Status Baseline Function- ADL's Independent Baseline Function- Mobility Independent Baseline Function- Work/School Able to perform most of job functions, has a trainee to help. He was completing a work conditioning program for prior shoulder surgery but did not complete program Current Functional Impairments (Reported) Functional Limitations- ADL's Able to perform ADLs with assistance due to pain Functional Limitations- Mobility/Gait Pain with movement (standing, walking) and sustained postures (sitting, standing) Functional Limitations- Work/School Currently unable to work due to pain PT-OP-C Subjective Start: 03/02/23 16:12 Freq: Status: Active Protocol: Document 05/19/23 14:38 NM (Rec: 05/19/23 15:40 NM [id number]) OP-PT Subjective Patient Comments Patient Comments Pt reports that he has 5/10 lower thoracic spine pain. Reports more pain in his low back. Minimal neck pain (no number when asked) PT-OP-E Functional Tests Start: 03/02/23 16:12 Freq: Status: Active Protocol: Document 03/02/23 16:13 NM (Rec: 03/02/23 16:43 NM [id number]) Functional Tests Other Deep Neck Flexor Endurance Test Score 5 seconds (norm = 38 seconds) Comment Supine with neck in cervical retraction and neck flexion off table PT-OP-F Manual Assessment Start: 03/02/23 16:12 Freq: Status: Active Protocol: Document 03/02/23 16:13 NM (Rec: 03/02/23 16:43 NM [id number]) Manual Assessments Soft Tissue Assessment Soft Tissue Mobility Assessment Pt able to tolerate moderate intensity soft tissue assessment. Demos decreased soft tissue mobility of R upper trapezius, R SCM, B rhomboids, and B rotator cuff muscles. Joint Mobility Assessment Joint Mobility Assessment P-A springing of cervical and thoracic spinous processes have normal segmental mobility . Pt reports symptom relief with assessment. Decreased lower cervical spine mobility during L>R side glides, no pain or symptom provocation. Thoracic rib mobility and transverse process segmental mobility normal, as well; no pain or symptom provocation. PT-OP-G Mobility & Gait Start: 03/02/23 16:12 Freq: Status: Active Protocol: Document 03/02/23 16:13 NM (Rec: 03/02/23 16:43 NM [id number]) OP Gait Assessment Gait Gait Assistance Required: Independent PT-OP-H Neuro Start: 03/02/23 16:12 Freq: Status: Active Protocol: Document 03/02/23 16:13 NM (Rec: 03/02/23 16:43 NM [id number]) Sensation Evaluation Gross Sensation Gross Sensation WNL Comments Summary Comments Cervical, UE, thoracic dermatomes intact to light touch sensation bilaterally. PT-OP-J Posture/Palpation/Skin Start: 03/02/23 16:12 Freq: Status: Active Protocol: Document 03/02/23 16:13 NM (Rec: 03/02/23 16:43 NM [id number]) Posture Evaluation Position Standing Evaluation View Lateral Head/C-Spine Posture Forward Head T-Spine Posture Increased Kyphosis L-Spine Posture Decreased Lordosis Shoulder Posture (R) Elevated Scapula Posture (L) Elevated,(R) Elevated,(R) Tipped Arm Posture (L) Externally Rotated,(R) Externally Rotated Pelvis Posture Posterior Tilted Weight Distribution Balanced Hip Posture (L) Externally Rotated,(R) Externally Rotated Palpation Assessment Location Thoracic Spine Palpation Location Bilateral: Rhomboids, Mid- lower Trapezius, periscapular muscles Palpation Findings Soft Tissue Tightness,Muscle Guarding,Tenderness Palpation Details R Rhomboid more tender to palpation than L Cervical Spine Palpation Location Bilateral: suboccipitals, Upper trapezius, paraspinals, SCM, LS Palpation Findings Soft Tissue Tightness,Spasm, Muscle Guarding,Tenderness Palpation Details Spasm in B suboccipitals; tenderness in R upper trap/SCM - limiting mobility PT-OP-K Range of Motion Start: 03/02/23 16:12 Freq: Status: Active Protocol: Document 04/22/23 08:15 NM (Rec: 04/22/23 09:01 NM [id number]) Cervical Spine Range of Motion Cervical Spine Active Degrees Flexion 50 Extension 45 Rotation Left 90 Rotation Right 90 Lateral Flexion Left 30 Lateral Flexion Right 30 Comments Thoracic Spine flex: 60 deg ext: 20 deg B lateral flex: 25 deg L rotation: 10 cm R rotation: 10 cm PT-OP-L Special Tests Start: 03/02/23 16:12 Freq: Status: Active Protocol: Document 03/02/23 16:13 NM (Rec: 03/02/23 16:43 NM [id number]) Special Tests Cervical Spine Special Tests Transverse Ligament Test Results negative Comments no excessive motion Alar Ligament Test Results negative Comments no excessive motion in B lateral flexion or rotation Traction Test Results positive Comments relieves symptoms PT-OP-M Strength Start: 03/02/23 16:12 Freq: Status: Active Protocol: Document 04/22/23 08:15 NM (Rec: 04/22/23 09:01 NM [id number]) Cervical Spine Strength Cervical Spine Manual Muscle Testing Flexion (C1-2) 4+ Good+ Extension 4+ Good+ Rotation Left 4+ Good+ Rotation Right 4+ Good+ Lateral Flexion Left (C3) 4+ Good+ Lateral Flexion Right (C3) 4+ Good+ Trunk Strength Trunk Manual Muscle Testing Flexion 4 Good Extension 4+ Good+ Rotation Left 4+ Good+ Rotation Right 4+ Good+ Lateral Flexion Left 4+ Good+ Lateral Flexion Right 4+ Good+ Scapula Strength Scapula Manual Muscle Testing Left Elevation (C4) 4+ Good+ Adduction 4+ Good+ Abduction 4+ Good+ Depression 4+ Good+ Right Elevation (C4) 4 Good Adduction 4 Good Abduction 4 Good Depression 4 Good Comments Continues to be limited with RUE; however may be due to previous shoulder injury PT-OP-Q Treatments Start: 03/04/23 15:33 Freq: Status: Active Protocol: Document 05/19/23 14:38 NM (Rec: 05/19/23 15:40 NM [id number]) Cardio Equipment Upper Body Ergometer (UBE) Duration (Minutes) 5 RPM 15 Other warm up due to stiffness Gym Equipment Cable Column (Body Solid) Lat Pull Down Details seated, to chest Resistance lvl 3 (30#) Reps/Time 3x8; cued scap setting for stability shld ext Details using cables; straight arm Resistance 20# Reps/Time cued core stab, scap set, chin tuck; no pain Therapeutic Exercises Prone Exercises Cat cow Prone Exercise Name for spinal mobility, decrease stiffness Side bilateral Equipment Used on mat Reps/Minutes 1x5 Comments cued segmental along spine, CS mirror spine Sitting Exercises Crossed arm stretch Sitting Exercise Name stretching supraspinatus, RTC, post shldr capsule/rhomboid for pain relief Side bilateral Reps/Minutes 2x30 ea Comments cues for palm up; after lat pulldown lat stretch Sitting Exercise Name seated fwd lat stretch Side bilateral Reps/Minutes 3x30 Comments post mob, prior to pulldown; reports min R shdlr pain Standing Exercises Wall push up Standing Exercise Name 1. push up plus with band Side bilateral Resistance eyak green tb (lvl 3) Equipment Used wall, arms at shldr height Reps/Minutes 2x15 ea Comments cued good scap mobility, reports min R rhomboid pain with protraction Manual Therapy Treatment Soft Tissue Mobilization Thoracic Spine Body Location rhomboids, LS, TS paraspinals, pect, Lat Mobilization Type Oscillations,Rolling,Strumming ,Sustained Pressure Intensity/Depth Moderate Comments Tenderness and restriction at R pec, B LS, thoracic paraspinals, B lat (R>L). Trigger point L LS and R lat; released after sustained pressure. Reports less discomfort. Less tenderness at rhomboids today. PT reviewed self mobilization with pt, use of heat 1. sitting LS trigger point release, mob with movement; 1x5 ea 2. sidelying lat trigger point mobilization and mob with movement using shoulder ext/IR 3. sidelying thoracic spine paraspinals rolling, strumming 4. seated rhomboid soft tissue mobilization Cervical Spine Body Location B UT Mobilization Type Myofascial Release,Sustained Pressure Intensity/Depth Moderate Body Position seated Comments Pt with mild spasm and stiffness B UT with sustained pressure, decreased with mobilization. Mild trigger points, mainly restricted tissue. Reports decreased tenderness post mobilization Joint Mobilizations TS Joint Ribs ~T5-T9, transverse processes, post rib borders Direction P-A, anterolateral Grade III Body Position Sitting Comments Mobilization with trunk rotation and scapula movement to address ribs, transverse process rotation. Prn pain with inspiration near middle thoracic ribs; mobilized with inspiration. Reports pain relief with mobilization Self-Care/Home Management Treatment Education Patient Education Home Exercise Program Other Education Provided lvl 6 theraband for previous HEP as no access to gym PT-OP-T Assessment and Plan Start: 03/02/23 16:12 Freq: Status: Active Protocol: Document 05/19/23 14:38 NM (Rec: 05/19/23 15:40 NM [id number]) Physical Therapy Assessment Rehab Potential Rehabilitation Potential Good Evaluation Complexity Number of Personal Factors/Comorbidities 1-2 Number of Body Systems Impaired 1-2 Clinical Presentation at Evaluation Stable Impairments Impairments Activity Tolerance,Functional Activities,Functional Mobility ,Pain,Posture,ROM,Soft Tissue Mobility,Strength Goals Eight Impairment ROM Impairment Global trunk ROM limited Short Term Goal (STG) Pt will improve global trunk ROM by at least 10 dg to demonstrate improved trunk mobility for strength and postural stability. 04/04/23: Flexion 60 deg, extension 25 deg STG Duration 6 visits MET French Lecturer Goal (LTG) Pt will improve global trunk ROM by at least 15 dg to demonstrate improved trunk mobility for strength and postural stability. 04/04/23: Flexion 60 deg, extension 25 deg LTG Duration 12 visits MET Seven Impairment compliance, function, strength Short Term Goal (STG) Pt will report compliance with HEP at least 3x/wk to maximize gains made during PT sessions. STG Duration 6 visits French Lecturer Goal (LTG) Pt will report and maintain compliance with HEP at least 3x/wk to demonstrate independence and maintain gains after discharge. 04/22/23: Reports compliance with HEP 2-3x/wk LTG Duration 12 visits PARTIALLY MET Six Impairment Function Impairment NDI 21/50 Short Term Goal (STG) Pt will improve NDI score by at least 7 points in order to demonstrate better tolerance for activity. STG Duration 6 visits NOT MET French Lecturer Goal (LTG) Pt will improve NDI score by at least 14 points (MCID) in order to demonstrate better tolerance for activity. 04/22/23: 27/50, an increase ( worse) score since IE LTG Duration 12 visits NOT MET Five Impairment function Impairment Pt reports unable to lift more than 20# due to pain Short Term Goal (STG) Pt will be able to lift at least 25# with 2/10 or less neck/back pain to demo improved activity tolerance and to return to PLOF. 04/22/23: Able to lift 25# from floor and from elevated surface to mimic work environment with 2/10 pain; unable to increase resistance due to pain STG Duration 6 visits MET French Lecturer Goal (LTG) Pt will be able to lift at least 40# (average windshield weight) with 2/10 or less neck /back pain to demo improved activity tolerance to return to PLOF. 04/22/23: Able to lift 25# from floor and from elevated surface to mimic work environment with 2/10 pain; unable to increase resistance due to pain LTG Duration 12 visits NOT MET Four Impairment Endurance, stability Impairment Deep Neck Flexor Endurance score 5 seconds Short Term Goal (STG) Pt's deep neck flexor endurance test will improve to at least 20 seconds in order to demonstrate improved cervical spine muscle endurance and strength. STG Duration 6 visits [facility] Goal (LTG) Pt's deep neck flexor endurance test will improve to at least 38 seconds (gender norm) in order to demonstrate improved cervical spine muscle endurance and strength. 04/22/23: Able to hold DNF endurance test 38 seconds LTG Duration 12 visits MET Three Impairment strength Impairment Cervical spine strength B lateral flexion and rotation 3 +/5 Short Term Goal (STG) Pt will increase B cervical spine lateral flexion and rotation muscle test to at least 4-/5 to demonstrate improved strength and stability to return to PLOF. STG Duration 6 visits [facility] Goal (LTG) Pt will increase B cervical spine lateral flexion and rotation muscle test to at least 4/5 to demonstrate improve strength and stability to return to PLOF. 04/22/23: Currently, B cervical spine lateral flexion/rotation MMT is 4+/5 against resistance, no pain reported LTG Duration 12 visits MET Two Impairment ROM Impairment Cervical spine rotation ROM limited Short Term Goal (STG) Pt will increase cervical spine rotation ROM by at least 15 deg bilaterally for improved visual scanning during driving. STG Duration 6 visits MET [facility] Goal (LTG) Pt cervical spine rotation ROM will be within 10 deg of each other bilaterally for improved visual scanning during driving. MET 04/04/23: B C spine Rot AROM 90 deg LTG Duration 12 visits MET One Impairment ROM Impairment Cervical spine flex ROM 15 deg , ext ROM 30 deg Short Term Goal (STG) Pt will increase cervical spine sagittal ROM by at least 15 deg in ea direction to improve mobility to PLOF. 04/22/23: MET flexion 50 deg, ext 45 deg 04/04/23: NOT MET flex ROM 25 deg (*10 deg inc), ext ROM 35 deg (*5 deg inc), 60 deg ext after mobilization STG Duration 6 visits MET French Lecturer Goal (LTG) Pt will increase cervical spine sagittal ROM by at least 25 deg in ea direction to improve mobility to PLOF. 05/16/23: flex 55 deg, ext 55 deg (post mobilization at B rhomboids) 04/22/23: flexion 50 deg (a 35 deg increase), ext 45 deg (a 15 deg increase) LTG Duration 12 visits MET Assessment Summary Assessment Pt continues to present with increased thoracic paraspinal muscle stiffness. He reports low back pain, beginning last week; plans to mention it at specialist visit on 05/31. Manual treatment emphasizing thoracic rib and thoracic spine mobilization, in addition to soft tissue mobilization along cervical/ thoracic spine/periscapular muscles for muscle relaxation and pain reduction. Pt reports decreased pain after mobilization. PT educated and reviewed with pt self-soft tissue mobilization, use of heat for muscle relaxation, and importance of HEP/ remaining active to facilitate improved tolerance for activity. Pt verbalizes understanding, but does not demonstrate carry over between sessions. Progressed lat pull downs and shoulder extension. Issued lvl 6 theraband for previous HEPs as pt does not have access to gym. Trialed deadlifts with band from floor ; pt requires tactile and verbal cues for hip hinge, but he reports increased low back discomfort with deadlift so discontinued at this session. PT continuing to recommend work condition to progress pt appropriately for return to work. Pt would benefit from skilled PT to decrease pain symptoms, in addition to progressive trunk and BUE strengthening in order to increase activity tolerance and return to PLOF. Physical Therapy Plan Frequency and Duration Frequency of Treatment 1-2x/wk, 8 visits Duration of treatment (weeks) 14 Plan of Care Start Date 03/02/23 Plan of Care End Date 06/03/23 Therapeutic Interventions Therapeutic Interventions Home Exercise Program,Joint Mobilizations,Manual Therapy, Neuromuscular Re-education, Patient/Caregiver Education, Self-Care/Home Management,Soft Tissue Mobilization, Therapeutic Activities, Therapeutic Exercises Modalities Cold Pack/Ice Massage,Electric Stimulation,Hot Packs, Iontophoresis,Ultrasound Next Visit Focus/Plan Next Note Type Treatment Note Next Visit Plan Continue lifting and progress: scaption, over head lifting, upright row, lat pull down ( progress), row (progress), shoulder press (progress), D1- D2; continue serratus punch etc. Add bicep upper cut. Postural and lifting mechanics education for safety. Add squat + overhead lift Continue manual tx, possible rib mobilization *PN next week to extend POC
--- NOTE | 2023-05-23 16:25 | PT.OTN ---
Current Diagnoses Strain of muscle, fascia and tendon at neck level, subsequent encounter (05/26/23) Physical Therapy Treatment Note PT-OP-A Visit Information Start: 03/02/23 16:12 Freq: Status: Active Protocol: Document 05/23/23 13:47 NM (Rec: 05/23/23 14:32 NM [id number]) Out-Patient Physical Therapy Visit Information Visit Information Visit Type Treatment Note Visit Note 05/30 Visit Start Time 13:47 Visit Stop Time 14:30 Visit Number 05/30 Evaluation Information Evaluation Date 03/02/23 PT-OP-B Current Condition Start: 03/02/23 16:12 Freq: Status: Active Protocol: Document 03/02/23 16:13 NM (Rec: 03/02/23 16:43 NM [id number]) Current Condition History of Current Condition Onset Date 01/19/23 Current Complaints neck and thoracic stiffness/ pain, muscle tightness, pressure in spine History of Current Condition Pt presents to clinic with cervical and thoracic pain beginning on 01/19/23 when pt was attempting set a windshield into a large car alone. He reports feeling something (cannot elaborate) in his R mid back when lifting the windshield and placing it in the car, but was not able to stop work due to a busy schedule. The next day his neck/back pain worsened and has not relented. The pain is most pronounced between his R scapula and spine, but he also has tenderness on the back of his head/neck. Symptoms also include neck/mid back stiffness along with tight muscles of the neck and between shoulder blades. He has been unable to work since 01/21/23. Pt had a previous shoulder surgery (biceps tendon/labrum repair) and had returned to work for about 6-7 months when the injury occurred. Treatment Goals Patient/Caregiver Goals Return to work, decrease pain Prior Functional Status Baseline Function- ADL's Independent Baseline Function- Mobility Independent Baseline Function- Work/School Able to perform most of job functions, has a trainee to help. He was completing a work conditioning program for prior shoulder surgery but did not complete program Current Functional Impairments (Reported) Functional Limitations- ADL's Able to perform ADLs with assistance due to pain Functional Limitations- Mobility/Gait Pain with movement (standing, walking) and sustained postures (sitting, standing) Functional Limitations- Work/School Currently unable to work due to pain PT-OP-C Subjective Start: 03/02/23 16:12 Freq: Status: Active Protocol: Document 05/23/23 13:47 NM (Rec: 05/23/23 14:32 NM [id number]) OP-PT Subjective Patient Comments Patient Comments Pt reports 6/10 lower cervical spine soreness and low back pain. He has been cleaning his home because his landlord is coming, so his low back is bothering him the most. He reports that he has not been doing his exercises since last visit. He continues to report difficulty with sleeping due to shoulder and back pain; his mid back pops every time he attempts to sleep. He has a sleep appt tomorrow to address his CPAP PT-OP-E Functional Tests Start: 03/02/23 16:12 Freq: Status: Active Protocol: Document 03/02/23 16:13 NM (Rec: 03/02/23 16:43 NM [id number]) Functional Tests Other Deep Neck Flexor Endurance Test Score 5 seconds (norm = 38 seconds) Comment Supine with neck in cervical retraction and neck flexion off table PT-OP-F Manual Assessment Start: 03/02/23 16:12 Freq: Status: Active Protocol: Document 03/02/23 16:13 NM (Rec: 03/02/23 16:43 NM [id number]) Manual Assessments Soft Tissue Assessment Soft Tissue Mobility Assessment Pt able to tolerate moderate intensity soft tissue assessment. Demos decreased soft tissue mobility of R upper trapezius, R SCM, B rhomboids, and B rotator cuff muscles. Joint Mobility Assessment Joint Mobility Assessment P-A springing of cervical and thoracic spinous processes have normal segmental mobility . Pt reports symptom relief with assessment. Decreased lower cervical spine mobility during L>R side glides, no pain or symptom provocation. Thoracic rib mobility and transverse process segmental mobility normal, as well; no pain or symptom provocation. PT-OP-G Mobility & Gait Start: 03/02/23 16:12 Freq: Status: Active Protocol: Document 03/02/23 16:13 NM (Rec: 03/02/23 16:43 NM [id number]) OP Gait Assessment Gait Gait Assistance Required: Independent PT-OP-H Neuro Start: 03/02/23 16:12 Freq: Status: Active Protocol: Document 03/02/23 16:13 NM (Rec: 03/02/23 16:43 NM [id number]) Sensation Evaluation Gross Sensation Gross Sensation WNL Comments Summary Comments Cervical, UE, thoracic dermatomes intact to light touch sensation bilaterally. PT-OP-J Posture/Palpation/Skin Start: 03/02/23 16:12 Freq: Status: Active Protocol: Document 03/02/23 16:13 NM (Rec: 03/02/23 16:43 NM [id number]) Posture Evaluation Position Standing Evaluation View Lateral Head/C-Spine Posture Forward Head T-Spine Posture Increased Kyphosis L-Spine Posture Decreased Lordosis Shoulder Posture (R) Elevated Scapula Posture (L) Elevated,(R) Elevated,(R) Tipped Arm Posture (L) Externally Rotated,(R) Externally Rotated Pelvis Posture Posterior Tilted Weight Distribution Balanced Hip Posture (L) Externally Rotated,(R) Externally Rotated Palpation Assessment Location Thoracic Spine Palpation Location Bilateral: Rhomboids, Mid- lower Trapezius, periscapular muscles Palpation Findings Soft Tissue Tightness,Muscle Guarding,Tenderness Palpation Details R Rhomboid more tender to palpation than L Cervical Spine Palpation Location Bilateral: suboccipitals, Upper trapezius, paraspinals, SCM, LS Palpation Findings Soft Tissue Tightness,Spasm, Muscle Guarding,Tenderness Palpation Details Spasm in B suboccipitals; tenderness in R upper trap/SCM - limiting mobility PT-OP-K Range of Motion Start: 03/02/23 16:12 Freq: Status: Active Protocol: Document 05/23/23 13:47 NM (Rec: 05/23/23 14:32 NM [id number]) Cervical Spine Range of Motion Cervical Spine Active Degrees Flexion 50 Extension 45 Rotation Left 90 Rotation Right 90 Lateral Flexion Left 30 Lateral Flexion Right 30 Comments Thoracic Spine flex: 60 deg ext: 20 deg B lateral flex: 25 deg L rotation: 10 cm R rotation: 10 cm PT-OP-L Special Tests Start: 03/02/23 16:12 Freq: Status: Active Protocol: Document 03/02/23 16:13 NM (Rec: 03/02/23 16:43 NM [id number]) Special Tests Cervical Spine Special Tests Transverse Ligament Test Results negative Comments no excessive motion Alar Ligament Test Results negative Comments no excessive motion in B lateral flexion or rotation Traction Test Results positive Comments relieves symptoms PT-OP-M Strength Start: 03/02/23 16:12 Freq: Status: Active Protocol: Document 05/23/23 13:47 NM (Rec: 05/23/23 14:32 NM [id number]) Cervical Spine Strength Cervical Spine Manual Muscle Testing Flexion (C1-2) 4+ Good+ Extension 4+ Good+ Rotation Left 4+ Good+ Rotation Right 4+ Good+ Lateral Flexion Left (C3) 4+ Good+ Lateral Flexion Right (C3) 4+ Good+ PT-OP-Q Treatments Start: 03/04/23 15:33 Freq: Status: Active Protocol: Document 05/23/23 13:47 NM (Rec: 05/23/23 14:32 NM [id number]) Cardio Equipment Upper Body Ergometer (UBE) Duration (Minutes) 5 RPM 15 Other warm up due to stiffness Gym Equipment Cable Column (Body Solid) clean Details 1. clean + OH press, 2. clean only Resistance 1. 10# weights on dowel, 2. 20 # Reps/Time 2x10 ea Therapeutic Exercises Sitting Exercises self mobilization Sitting Exercise Name for HEP: rhomboids, UT, LS, RTC Side bilateral Equipment Used theracane Reps/Minutes 2 min ea side Comments instructed for HEP Crossed arm stretch Sitting Exercise Name stretching supraspinatus, RTC, post shldr capsule/rhomboid for pain relief Side bilateral Reps/Minutes 2x30 ea Comments cues for palm up; after lat pulldown lat stretch Sitting Exercise Name seated fwd lat stretch Side bilateral Reps/Minutes 2x30 Comments after cleans Thoracic Mobility Sitting Exercise Name seated, hands across chest: flex>ext Side bilateral Equipment Used plinth Reps/Minutes 1x10 Comments to decrease stiffness Standing Exercises Upright row Standing Exercise Name slight hip hinge Side bilateral Resistance 10# db ea hand Reps/Minutes 2x10 Comments cues for correct execution; fatiguing; reports feel it but no pain R shdl paloff press Standing Exercise Name 1. fwd/back Side bilateral Resistance habematolel green tb Reps/Minutes 1x15 ea Comments cued for core stab, no trunk rot Therapeutic Activity Therapeutic Activity bar lifts Comments 1. AROM for motion. Cues for correct execution 2. 30# from 18 chair, 1x5- clean then unilateral press to simulate lifting [employer] Box lifts Comments 1. from floor, 25# and 35# in crate: 1x5 ea Cued for hip hinge, lumbar extension and core stability 2. from waist height, 35# in crate: 1x5 ea; cued to keep crate closer to body for better mechanics and stability , safety Manual Therapy Treatment Soft Tissue Mobilization Thoracic Spine Body Location rhomboids, LS, TS paraspinals, pectoralis, Lat Mobilization Type Oscillations,Rolling,Strumming ,Sustained Pressure Intensity/Depth Moderate Comments Tenderness and restriction at R pec, B LS, thoracic paraspinals, B lat (R>L). Trigger point B LS and R lat; released after sustained pressure. Reports less discomfort afterward. Less tenderness at rhomboids today. PT again reviewed self mobilization with pt, use of heat 1. sitting LS trigger point release, mob with movement; 1x5 ea 2. sidelying lat trigger point mobilization and mob with movement using shoulder ext/IR 3. sidelying thoracic spine paraspinals rolling, strumming 4. seated rhomboid soft tissue mobilization Cervical Spine Body Location B UT Mobilization Type Rolling,Sustained Pressure Intensity/Depth Moderate Body Position seated Comments Pt with mild spasm and stiffness B UT with sustained pressure, decreased with mobilization. Mild trigger points at LS, mainly restricted tissue. Reports decreased tenderness post mobilization. MWM of LS with pt looking to opposite hip during rolling/sustained pressure at tender points Joint Mobilizations TS Joint Ribs ~T7-T9, transverse processes, post rib borders Direction P-A, anterolateral, ER at TP Grade III Body Position Sitting Comments Mobilization with trunk rotation and scapula movement to address ribs, transverse process rotation. Added ER at mid-thoracic TP with sidebend with pt performing functional isometric into floor to creater greater mobility at ribs Manual Techniques contract-relax Type trialed: with TS SB/rot for rib mob Body Position seated Reps/Duration 1x5 Comments Gentle isometric using ipsi LE into floor, to mobilize ipsi rib into ER/expansion PT-OP-T Assessment and Plan Start: 03/02/23 16:12 Freq: Status: Active Protocol: Document 05/23/23 13:47 NM (Rec: 05/23/23 14:32 NM [id number]) Physical Therapy Assessment Goals Nine Impairment function, strength, activity Impairment Pt unable to work Inserting Operator Goal (LTG) Pt will be able to participate in work or work conditioning program if appropriate. LTG Duration 12 visits Eight Impairment ROM Impairment Global trunk ROM limited Short Term Goal (STG) Pt will improve global trunk ROM by at least 10 dg to demonstrate improved trunk mobility for strength and postural stability. 04/04/23: Flexion 60 deg, extension 25 deg STG Duration 6 visits MET Inserting Operator Goal (LTG) Pt will improve global trunk ROM by at least 15 dg to demonstrate improved trunk mobility for strength and postural stability. 04/04/23: Flexion 60 deg, extension 25 deg LTG Duration 12 visits MET Seven Impairment compliance, function, strength Short Term Goal (STG) Pt will report compliance with HEP at least 3x/wk to maximize gains made during PT sessions. STG Duration 6 visits Assisted Goal (LTG) Pt will report and maintain compliance with HEP at least 3x/wk to demonstrate independence and maintain gains after discharge. 05/23/23: Reports daily compliance with HEP, but did not perform since last session on 05/1904/22/23: Reports compliance with HEP 2-3x/wk LTG Duration 12 visits Progressing Six Impairment Function Impairment NDI 21/50 Short Term Goal (STG) Pt will improve NDI score by at least 7 points in order to demonstrate better tolerance for activity. STG Duration 6 visits NOT MET Assisted Goal (LTG) Pt will improve NDI score to less than 25/50 in order to demonstrate better tolerance for activity. 05/23/23: 26/50 04/22/23: 27/50, an increase ( worse) score since IE LTG Duration 12 visits NOT MET; goal updated Five Impairment function Impairment Pt reports unable to lift more than 20# due to pain Short Term Goal (STG) Pt will be able to lift at least 25# with 2/10 or less neck/back pain to demo improved activity tolerance and to return to PLOF. 04/22/23: Able to lift 25# from floor and from elevated surface to mimic work environment with 2/10 pain; unable to increase resistance due to pain STG Duration 6 visits MET Inserting Operator Goal (LTG) Pt will be able to lift at least 40# (average windield weight) without compensation to demo improved activity tolerance to return to PLOF. 05/23/23: Able to lift 35# from floor and from elevated surface to mimic work environment 04/22/23: Able to lift 25# from floor and from elevated surface to mimic work environment with 2/10 pain; unable to increase resistance due to pain LTG Duration 12 visits NOT MET; goal updated Four Impairment Endurance, stability Impairment Deep Neck Flexor Endurance score 5 seconds Short Term Goal (STG) Pt's deep neck flexor endurance test will improve to at least 20 seconds in order to demonstrate improved cervical spine muscle endurance and strength. STG Duration 6 visits Inserting Operator Goal (LTG) Pt's deep neck flexor endurance test will improve to at least 38 seconds (gender norm) in order to demonstrate improved cervical spine muscle endurance and strength. 04/22/23: Able to hold DNF endurance test 38 seconds LTG Duration 12 visits MET Three Impairment strength Impairment Cervical spine strength B lateral flexion and rotation 3 +/5 Short Term Goal (STG) Pt will increase B cervical spine lateral flexion and rotation muscle test to at least 4-/5 to demonstrate improved strength and stability to return to PLOF. STG Duration 6 visits Inserting Operator Goal (LTG) Pt will increase B cervical spine lateral flexion and rotation muscle test to at least 4/5 to demonstrate improve strength and stability to return to PLOF. 04/22/23: Currently, B cervical spine lateral flexion/rotation MMT is 4+/5 against resistance, no pain reported LTG Duration 12 visits MET Two Impairment ROM Impairment Cervical spine rotation ROM limited Short Term Goal (STG) Pt will increase cervical spine rotation ROM by at least 15 deg bilaterally for improved visual scanning during driving. STG Duration 6 visits MET Assisted Goal (LTG) Pt cervical spine rotation ROM will be within 10 deg of each other bilaterally for improved visual scanning during driving. MET 04/04/23: B C spine Rot AROM 90 deg LTG Duration 12 visits MET One Impairment ROM Impairment Cervical spine flex ROM 15 deg , ext ROM 30 deg Short Term Goal (STG) Pt will increase cervical spine sagittal ROM by at least 15 deg in ea direction to improve mobility to PLOF. 04/22/23: MET flexion 50 deg, ext 45 deg 04/04/23: NOT MET flex ROM 25 deg (*10 deg inc), ext ROM 35 deg (*5 deg inc), 60 deg ext after mobilization STG Duration 6 visits MET Inserting Operator Goal (LTG) Pt will increase cervical spine sagittal ROM by at least 25 deg in ea direction to improve mobility to PLOF. 05/16/23: flex 55 deg, ext 55 deg (post mobilization at B rhomboids) 04/22/23: flexion 50 deg (a 35 deg increase), ext 45 deg (a 15 deg increase) LTG Duration 12 visits MET Progress Towards Goals Progress Towards Goals Slow Progress due to Activity Tolerance,Slow Progress due to Medical Issues,Slow Progress due to Noncompliance,Goals Met Progress Comments Pt has met most goals. He is progressing toward lifting and pain management goals. Pain management, lifting goal updated and return to activity goal added. Assessment Summary Assessment Pt tolerated session well despite reports of increased pain prior to session, but reports none after session. Re -trialed lifting weighted objects from floor to waist and elevated heights in order to simulate work environment; pt able to lift up to 35# from floor but unable to progress further at this time due to reports of low back pain. Initiated resisted power clean using dowel as motion is most similar to pt's work tasks. He is able to up to 20# using power clean before compensating with trunk extension despite cueing for scapular setting, hip hinge, and core stabilization. Manual treatment performed to decrease muscle-related pain, improve rib mobility and pain symptoms. Educated regarding performing soft tissue mobilization with heat prior at home for pain relief. Pt has been seen since February 2023 for cervical and thoracic spine pain s/p injury at work. Since IE, pt has progressed toward goals. He has full cervical and thoracic spine mobility and strength. He also demos improved ability to stabilize cervical spine during activity . Pt is continuing to progress toward more functional return to work training. Goals updated. Pt is progressing through different types of lifts in order to strengthen and simulate work environment. Currently, pt is able to perform lifts up to 35# without increased back pain, which is the lower amount that pt would need to tolerate lifting to perform work- related tasks. Pt would continue to benefit from work conditioning upon discharge from PT. Pt has an appt with a specialist regarding his pain on 05/31. At this time, he is less limited by cervical and thoracic spine pain, and is more limited by pain related to previous R shoulder injury and mechanical low back/hip pain. Despite pt reports of compliance, pt has limited ability to perform HEP due to lack of equipment and reports of soreness/pain after activity, which has limited his ability to progress toward return to PLOF. Pt has been issued therabands and offered household suggestions for similar activities. Pt would benefit from skilled PT to address impairments in strength and mobility, in addition to endurance and biomechanics training in order to improve activity tolerance . Physical Therapy Plan Frequency and Duration Frequency of Treatment 1-2x/wk Duration of treatment (weeks) 8 Plan of Care Start Date 05/23/23 Plan of Care End Date 07/19/23 Therapeutic Interventions Therapeutic Interventions Home Exercise Program,Joint Mobilizations,Manual Therapy, Neuromuscular Re-education, Patient/Caregiver Education, Self-Care/Home Management,Soft Tissue Mobilization, Therapeutic Activities, Therapeutic Exercises Modalities Cold Pack/Ice Massage,Electric Stimulation,Hot Packs, Iontophoresis,Ultrasound Next Visit Focus/Plan Next Note Type Treatment Note Next Visit Plan Continue lifting and progress: scaption, over head lifting, upright row, lat pull down ( progress), row (progress), shoulder press (progress), D1- D2; continue serratus punch etc. Add bicep upper cut. Postural and lifting mechanics education for safety. Add squat + overhead lift Continue manual tx, rib mobilization
--- NOTE | 2023-05-23 16:29 | PT.OTN ---
Current Diagnoses Strain of muscle, fascia and tendon at neck level, subsequent encounter (05/26/23) Physical Therapy Treatment Note PT-OP-A Visit Information Start: 03/02/23 16:12 Freq: Status: Active Protocol: Document 05/23/23 13:47 NM (Rec: 05/23/23 14:32 NM [id number]) Out-Patient Physical Therapy Visit Information Visit Information Visit Type Progress Note Visit Note 05/30 Visit Start Time 13:47 Visit Stop Time 14:30 Visit Number 05/30 Evaluation Information Evaluation Date 03/02/23 PT-OP-B Current Condition Start: 03/02/23 16:12 Freq: Status: Active Protocol: Document 03/02/23 16:13 NM (Rec: 03/02/23 16:43 NM [id number]) Current Condition History of Current Condition Onset Date 01/19/23 Current Complaints neck and thoracic stiffness/ pain, muscle tightness, pressure in spine History of Current Condition Pt presents to clinic with cervical and thoracic pain beginning on 01/19/23 when pt was attempting set a windshield into a large car alone. He reports feeling something (cannot elaborate) in his R mid back when lifting the windshield and placing it in the car, but was not able to stop work due to a busy schedule. The next day his neck/back pain worsened and has not relented. The pain is most pronounced between his R scapula and spine, but he also has tenderness on the back of his head/neck. Symptoms also include neck/mid back stiffness along with tight muscles of the neck and between shoulder blades. He has been unable to work since 01/21/23. Pt had a previous shoulder surgery (biceps tendon/labrum repair) and had returned to work for about 6-7 months when the injury occurred. Treatment Goals Patient/Caregiver Goals Return to work, decrease pain Prior Functional Status Baseline Function- ADL's Independent Baseline Function- Mobility Independent Baseline Function- Work/School Able to perform most of job functions, has a trainee to help. He was completing a work conditioning program for prior shoulder surgery but did not complete program Current Functional Impairments (Reported) Functional Limitations- ADL's Able to perform ADLs with assistance due to pain Functional Limitations- Mobility/Gait Pain with movement (standing, walking) and sustained postures (sitting, standing) Functional Limitations- Work/School Currently unable to work due to pain PT-OP-C Subjective Start: 03/02/23 16:12 Freq: Status: Active Protocol: Document 05/23/23 13:47 NM (Rec: 05/23/23 14:32 NM [id number]) OP-PT Subjective Patient Comments Patient Comments Pt reports 6/10 lower cervical spine soreness and low back pain. He has been cleaning his home because his landlord is coming, so his low back is bothering him the most. He reports that he has not been doing his exercises since last visit. He continues to report difficulty with sleeping due to shoulder and back pain; his mid back pops every time he attempts to sleep. He has a sleep appt tomorrow to address his CPAP PT-OP-E Functional Tests Start: 03/02/23 16:12 Freq: Status: Active Protocol: Document 03/02/23 16:13 NM (Rec: 03/02/23 16:43 NM [id number]) Functional Tests Other Deep Neck Flexor Endurance Test Score 5 seconds (norm = 38 seconds) Comment Supine with neck in cervical retraction and neck flexion off table PT-OP-F Manual Assessment Start: 03/02/23 16:12 Freq: Status: Active Protocol: Document 03/02/23 16:13 NM (Rec: 03/02/23 16:43 NM [id number]) Manual Assessments Soft Tissue Assessment Soft Tissue Mobility Assessment Pt able to tolerate moderate intensity soft tissue assessment. Demos decreased soft tissue mobility of R upper trapezius, R SCM, B rhomboids, and B rotator cuff muscles. Joint Mobility Assessment Joint Mobility Assessment P-A springing of cervical and thoracic spinous processes have normal segmental mobility . Pt reports symptom relief with assessment. Decreased lower cervical spine mobility during L>R side glides, no pain or symptom provocation. Thoracic rib mobility and transverse process segmental mobility normal, as well; no pain or symptom provocation. PT-OP-G Mobility & Gait Start: 03/02/23 16:12 Freq: Status: Active Protocol: Document 03/02/23 16:13 NM (Rec: 03/02/23 16:43 NM [id number]) OP Gait Assessment Gait Gait Assistance Required: Independent PT-OP-H Neuro Start: 03/02/23 16:12 Freq: Status: Active Protocol: Document 03/02/23 16:13 NM (Rec: 03/02/23 16:43 NM [id number]) Sensation Evaluation Gross Sensation Gross Sensation WNL Comments Summary Comments Cervical, UE, thoracic dermatomes intact to light touch sensation bilaterally. PT-OP-J Posture/Palpation/Skin Start: 03/02/23 16:12 Freq: Status: Active Protocol: Document 03/02/23 16:13 NM (Rec: 03/02/23 16:43 NM [id number]) Posture Evaluation Position Standing Evaluation View Lateral Head/C-Spine Posture Forward Head T-Spine Posture Increased Kyphosis L-Spine Posture Decreased Lordosis Shoulder Posture (R) Elevated Scapula Posture (L) Elevated,(R) Elevated,(R) Tipped Arm Posture (L) Externally Rotated,(R) Externally Rotated Pelvis Posture Posterior Tilted Weight Distribution Balanced Hip Posture (L) Externally Rotated,(R) Externally Rotated Palpation Assessment Location Thoracic Spine Palpation Location Bilateral: Rhomboids, Mid- lower Trapezius, periscapular muscles Palpation Findings Soft Tissue Tightness,Muscle Guarding,Tenderness Palpation Details R Rhomboid more tender to palpation than L Cervical Spine Palpation Location Bilateral: suboccipitals, Upper trapezius, paraspinals, SCM, LS Palpation Findings Soft Tissue Tightness,Spasm, Muscle Guarding,Tenderness Palpation Details Spasm in B suboccipitals; tenderness in R upper trap/SCM - limiting mobility PT-OP-K Range of Motion Start: 03/02/23 16:12 Freq: Status: Active Protocol: Document 05/23/23 13:47 NM (Rec: 05/23/23 14:32 NM [id number]) Cervical Spine Range of Motion Cervical Spine Active Degrees Flexion 50 Extension 45 Rotation Left 90 Rotation Right 90 Lateral Flexion Left 30 Lateral Flexion Right 30 Comments Thoracic Spine flex: 60 deg ext: 20 deg B lateral flex: 25 deg L rotation: 10 cm R rotation: 10 cm PT-OP-L Special Tests Start: 03/02/23 16:12 Freq: Status: Active Protocol: Document 03/02/23 16:13 NM (Rec: 03/02/23 16:43 NM [id number]) Special Tests Cervical Spine Special Tests Transverse Ligament Test Results negative Comments no excessive motion Alar Ligament Test Results negative Comments no excessive motion in B lateral flexion or rotation Traction Test Results positive Comments relieves symptoms PT-OP-M Strength Start: 03/02/23 16:12 Freq: Status: Active Protocol: Document 05/23/23 13:47 NM (Rec: 05/23/23 14:32 NM [id number]) Cervical Spine Strength Cervical Spine Manual Muscle Testing Flexion (C1-2) 4+ Good+ Extension 4+ Good+ Rotation Left 4+ Good+ Rotation Right 4+ Good+ Lateral Flexion Left (C3) 4+ Good+ Lateral Flexion Right (C3) 4+ Good+ PT-OP-Q Treatments Start: 03/04/23 15:33 Freq: Status: Active Protocol: Document 05/23/23 13:47 NM (Rec: 05/23/23 14:32 NM [id number]) Cardio Equipment Upper Body Ergometer (UBE) Duration (Minutes) 5 RPM 15 Other warm up due to stiffness Gym Equipment Cable Column (Body Solid) clean Details 1. clean + OH press, 2. clean only Resistance 1. 10# weights on dowel, 2. 20 # Reps/Time 2x10 ea Therapeutic Exercises Sitting Exercises self mobilization Sitting Exercise Name for HEP: rhomboids, UT, LS, RTC Side bilateral Equipment Used theracane Reps/Minutes 2 min ea side Comments instructed for HEP Crossed arm stretch Sitting Exercise Name stretching supraspinatus, RTC, post shldr capsule/rhomboid for pain relief Side bilateral Reps/Minutes 2x30 ea Comments cues for palm up; after lat pulldown lat stretch Sitting Exercise Name seated fwd lat stretch Side bilateral Reps/Minutes 2x30 Comments after cleans Thoracic Mobility Sitting Exercise Name seated, hands across chest: flex>ext Side bilateral Equipment Used plinth Reps/Minutes 1x10 Comments to decrease stiffness Standing Exercises Upright row Standing Exercise Name slight hip hinge Side bilateral Resistance 10# db ea hand Reps/Minutes 2x10 Comments cues for correct execution; fatiguing; reports feel it but no pain R shdl paloff press Standing Exercise Name 1. fwd/back Side bilateral Resistance [place] tb Reps/Minutes 1x15 ea Comments cued for core stab, no trunk rot Therapeutic Activity Therapeutic Activity bar lifts Comments 1. AROM for motion. Cues for correct execution 2. 30# from 18 chair, 1x5- clean then unilateral press to simulate lifting [employer] lifts Comments 1. from floor, 25# and 35# in crate: 1x5 ea Cued for hip hinge, lumbar extension and core stability 2. from waist height, 35# in crate: 1x5 ea; cued to keep crate closer to body for better mechanics and stability , safety Manual Therapy Treatment Soft Tissue Mobilization Thoracic Spine Body Location rhomboids, LS, TS paraspinals, pectoralis, Lat Mobilization Type Oscillations,Rolling,Strumming ,Sustained Pressure Intensity/Depth Moderate Comments Tenderness and restriction at R pec, B LS, thoracic paraspinals, B lat (R>L). Trigger point B LS and R lat; released after sustained pressure. Reports less discomfort afterward. Less tenderness at rhomboids today. PT again reviewed self mobilization with pt, use of heat 1. sitting LS trigger point release, mob with movement; 1x5 ea 2. sidelying lat trigger point mobilization and mob with movement using shoulder ext/IR 3. sidelying thoracic spine paraspinals rolling, strumming 4. seated rhomboid soft tissue mobilization Cervical Spine Body Location B UT Mobilization Type Rolling,Sustained Pressure Intensity/Depth Moderate Body Position seated Comments Pt with mild spasm and stiffness B UT with sustained pressure, decreased with mobilization. Mild trigger points at LS, mainly restricted tissue. Reports decreased tenderness post mobilization. MWM of LS with pt looking to opposite hip during rolling/sustained pressure at tender points Joint Mobilizations TS Joint Ribs ~T7-T9, transverse processes, post rib borders Direction P-A, anterolateral, ER at TP Grade III Body Position Sitting Comments Mobilization with trunk rotation and scapula movement to address ribs, transverse process rotation. Added ER at mid-thoracic TP with sidebend with pt performing functional isometric into floor to creater greater mobility at ribs Manual Techniques contract-relax Type trialed: with TS SB/rot for rib mob Body Position seated Reps/Duration 1x5 Comments Gentle isometric using ipsi LE into floor, to mobilize ipsi rib into ER/expansion PT-OP-T Assessment and Plan Start: 03/02/23 16:12 Freq: Status: Active Protocol: Document 05/23/23 13:47 NM (Rec: 05/23/23 14:32 NM [id number]) Physical Therapy Assessment Goals Nine Impairment function, strength, activity Impairment Pt unable to work Residential Goal (LTG) Pt will be able to participate in work or work conditioning program if appropriate. LTG Duration 12 visits Eight Impairment ROM Impairment Global trunk ROM limited Short Term Goal (STG) Pt will improve global trunk ROM by at least 10 dg to demonstrate improved trunk mobility for strength and postural stability. 04/04/23: Flexion 60 deg, extension 25 deg STG Duration 6 visits MET Residential Goal (LTG) Pt will improve global trunk ROM by at least 15 dg to demonstrate improved trunk mobility for strength and postural stability. 04/04/23: Flexion 60 deg, extension 25 deg LTG Duration 12 visits MET Seven Impairment compliance, function, strength Short Term Goal (STG) Pt will report compliance with HEP at least 3x/wk to maximize gains made during PT sessions. STG Duration 6 visits [employer] Goal (LTG) Pt will report and maintain compliance with HEP at least 3x/wk to demonstrate independence and maintain gains after discharge. 05/23/23: Reports daily compliance with HEP, but did not perform since last session on 05/1904/22/23: Reports compliance with HEP 2-3x/wk LTG Duration 12 visits Progressing Six Impairment Function Impairment NDI 21/50 Short Term Goal (STG) Pt will improve NDI score by at least 7 points in order to demonstrate better tolerance for activity. STG Duration 6 visits NOT MET Residential Goal (LTG) Pt will improve NDI score to less than 25/50 in order to demonstrate better tolerance for activity. 05/23/23: 26/50 04/22/23: 27/50, an increase ( worse) score since IE LTG Duration 12 visits NOT MET; goal updated Five Impairment function Impairment Pt reports unable to lift more than 20# due to pain Short Term Goal (STG) Pt will be able to lift at least 25# with 2/10 or less neck/back pain to demo improved activity tolerance and to return to PLOF. 04/22/23: Able to lift 25# from floor and from elevated surface to mimic work environment with 2/10 pain; unable to increase resistance due to pain STG Duration 6 visits MET [employer] Goal (LTG) Pt will be able to lift at least 40# (average windield weight) without compensation to demo improved activity tolerance to return to PLOF. 05/23/23: Able to lift 35# from floor and from elevated surface to mimic work environment 04/22/23: Able to lift 25# from floor and from elevated surface to mimic work environment with 2/10 pain; unable to increase resistance due to pain LTG Duration 12 visits NOT MET; goal updated Four Impairment Endurance, stability Impairment Deep Neck Flexor Endurance score 5 seconds Short Term Goal (STG) Pt's deep neck flexor endurance test will improve to at least 20 seconds in order to demonstrate improved cervical spine muscle endurance and strength. STG Duration 6 visits [employer] Goal (LTG) Pt's deep neck flexor endurance test will improve to at least 38 seconds (gender norm) in order to demonstrate improved cervical spine muscle endurance and strength. 04/22/23: Able to hold DNF endurance test 38 seconds LTG Duration 12 visits MET Three Impairment strength Impairment Cervical spine strength B lateral flexion and rotation 3 +/5 Short Term Goal (STG) Pt will increase B cervical spine lateral flexion and rotation muscle test to at least 4-/5 to demonstrate improved strength and stability to return to PLOF. STG Duration 6 visits [employer] Goal (LTG) Pt will increase B cervical spine lateral flexion and rotation muscle test to at least 4/5 to demonstrate improve strength and stability to return to PLOF. 04/22/23: Currently, B cervical spine lateral flexion/rotation MMT is 4+/5 against resistance, no pain reported LTG Duration 12 visits MET Two Impairment ROM Impairment Cervical spine rotation ROM limited Short Term Goal (STG) Pt will increase cervical spine rotation ROM by at least 15 deg bilaterally for improved visual scanning during driving. STG Duration 6 visits MET Residential Goal (LTG) Pt cervical spine rotation ROM will be within 10 deg of each other bilaterally for improved visual scanning during driving. MET 04/04/23: B C spine Rot AROM 90 deg LTG Duration 12 visits MET One Impairment ROM Impairment Cervical spine flex ROM 15 deg , ext ROM 30 deg Short Term Goal (STG) Pt will increase cervical spine sagittal ROM by at least 15 deg in ea direction to improve mobility to PLOF. 04/22/23: MET flexion 50 deg, ext 45 deg 04/04/23: NOT MET flex ROM 25 deg (*10 deg inc), ext ROM 35 deg (*5 deg inc), 60 deg ext after mobilization STG Duration 6 visits MET Residential Goal (LTG) Pt will increase cervical spine sagittal ROM by at least 25 deg in ea direction to improve mobility to PLOF. 05/16/23: flex 55 deg, ext 55 deg (post mobilization at B rhomboids) 04/22/23: flexion 50 deg (a 35 deg increase), ext 45 deg (a 15 deg increase) LTG Duration 12 visits MET Progress Towards Goals Progress Towards Goals Slow Progress due to Activity Tolerance,Slow Progress due to Medical Issues,Slow Progress due to Noncompliance,Goals Met Progress Comments Pt has met most goals. He is progressing toward lifting and pain management goals. Pain management, lifting goal updated and return to activity goal added. Assessment Summary Assessment Pt tolerated session well despite reports of increased pain prior to session, but reports none after session. Re -trialed lifting weighted objects from floor to waist and elevated heights in order to simulate work environment; pt able to lift up to 35# from floor but unable to progress further at this time due to reports of low back pain. Initiated resisted power clean using dowel as motion is most similar to pt's work tasks. He is able to up to 20# using power clean before compensating with trunk extension despite cueing for scapular setting, hip hinge, and core stabilization. Manual treatment performed to decrease muscle-related pain, improve rib mobility and pain symptoms. Educated regarding performing soft tissue mobilization with heat prior at home for pain relief. Pt has been seen since February 2023 for cervical and thoracic spine pain s/p injury at work. Since IE, pt has progressed toward goals. He has full cervical and thoracic spine mobility and strength. He also demos improved ability to stabilize cervical spine during activity . Pt is continuing to progress toward more functional return to work training. Goals updated. Pt is progressing through different types of lifts in order to strengthen and simulate work environment. Currently, pt is able to perform lifts up to 35# without increased back pain, which is the lower amount that pt would need to tolerate lifting to perform work- related tasks. Pt would continue to benefit from work conditioning upon discharge from PT and assistance with lifting heavier objects when he returns to work. Pt has an appt with a specialist regarding his pain on 05/31. At this time, he is less limited by cervical and thoracic spine pain, and is more limited by pain related to previous R shoulder injury and mechanical low back/hip pain. Despite pt reports of compliance, pt has limited ability to perform HEP due to lack of equipment and reports of soreness/pain after activity, which has limited his ability to progress toward return to PLOF. Pt has been issued therabands and offered household suggestions for similar activities. Pt would benefit from skilled PT to address impairments in strength and mobility, in addition to endurance and biomechanics training in order to improve activity tolerance . Physical Therapy Plan Frequency and Duration Frequency of Treatment 1-2x/wk Duration of treatment (weeks) 8 Plan of Care Start Date 05/23/23 Plan of Care End Date 07/19/23 Therapeutic Interventions Therapeutic Interventions Home Exercise Program,Joint Mobilizations,Manual Therapy, Neuromuscular Re-education, Patient/Caregiver Education, Self-Care/Home Management,Soft Tissue Mobilization, Therapeutic Activities, Therapeutic Exercises Modalities Cold Pack/Ice Massage,Electric Stimulation,Hot Packs, Iontophoresis,Ultrasound Next Visit Focus/Plan Next Note Type Treatment Note Next Visit Plan Emphasize power clean; Continue lifting and progress: scaption, over head lifting, upright row, lat pull down ( progress), row (progress), shoulder press (progress), D1- D2; continue serratus punch etc. Add bicep upper cut. Postural and lifting mechanics education for safety. Add squat + overhead lift, work simulation, STM; education on body mechanics Continue manual tx, rib mobilization
--- NOTE | 2023-05-26 17:10 | PT.OTN ---
Current Diagnoses Strain of muscle, fascia and tendon at neck level, subsequent encounter (05/26/23) Physical Therapy Treatment Note PT-OP-A Visit Information Start: 03/02/23 16:12 Freq: Status: Active Protocol: Document 05/26/23 16:41 NM (Rec: 05/26/23 17:10 NM [id number]) Out-Patient Physical Therapy Visit Information Visit Information Visit Type Treatment Note Visit Note 06/27 Visit Start Time 13:45 Visit Stop Time 14:30 Visit Number 06/27 Evaluation Information Evaluation Date 03/02/23 PT-OP-B Current Condition Start: 03/02/23 16:12 Freq: Status: Active Protocol: Document 03/02/23 16:13 NM (Rec: 03/02/23 16:43 NM [id number]) Current Condition History of Current Condition Onset Date 01/19/23 Current Complaints neck and thoracic stiffness/ pain, muscle tightness, pressure in spine History of Current Condition Pt presents to clinic with cervical and thoracic pain beginning on 01/19/23 when pt was attempting set a windshield into a large car alone. He reports feeling something (cannot elaborate) in his R mid back when lifting the windshield and placing it in the car, but was not able to stop work due to a busy schedule. The next day his neck/back pain worsened and has not relented. The pain is most pronounced between his R scapula and spine, but he also has tenderness on the back of his head/neck. Symptoms also include neck/mid back stiffness along with tight muscles of the neck and between shoulder blades. He has been unable to work since 01/21/23. Pt had a previous shoulder surgery (biceps tendon/labrum repair) and had returned to work for about 6-7 months when the injury occurred. Treatment Goals Patient/Caregiver Goals Return to work, decrease pain Prior Functional Status Baseline Function- ADL's Independent Baseline Function- Mobility Independent Baseline Function- Work/School Able to perform most of job functions, has a trainee to help. He was completing a work conditioning program for prior shoulder surgery but did not complete program Current Functional Impairments (Reported) Functional Limitations- ADL's Able to perform ADLs with assistance due to pain Functional Limitations- Mobility/Gait Pain with movement (standing, walking) and sustained postures (sitting, standing) Functional Limitations- Work/School Currently unable to work due to pain PT-OP-C Subjective Start: 03/02/23 16:12 Freq: Status: Active Protocol: Document 05/26/23 16:41 NM (Rec: 05/26/23 17:10 NM [id number]) OP-PT Subjective Patient Comments Patient Comments Pt reports no changes since last session except increased R hip pain. He states he was very sore in his R rhomboid after session and was not able to massage it out without pain. Believes it resolved yesterday. He also states that he doesn't have any pain during exercise or when he was at work, it was only after exercise or when the work was done. PT-OP-E Functional Tests Start: 03/02/23 16:12 Freq: Status: Active Protocol: Document 03/02/23 16:13 NM (Rec: 03/02/23 16:43 NM [id number]) Functional Tests Other Deep Neck Flexor Endurance Test Score 5 seconds (norm = 38 seconds) Comment Supine with neck in cervical retraction and neck flexion off table PT-OP-F Manual Assessment Start: 03/02/23 16:12 Freq: Status: Active Protocol: Document 03/02/23 16:13 NM (Rec: 03/02/23 16:43 NM [id number]) Manual Assessments Soft Tissue Assessment Soft Tissue Mobility Assessment Pt able to tolerate moderate intensity soft tissue assessment. Demos decreased soft tissue mobility of R upper trapezius, R SCM, B rhomboids, and B rotator cuff muscles. Joint Mobility Assessment Joint Mobility Assessment P-A springing of cervical and thoracic spinous processes have normal segmental mobility . Pt reports symptom relief with assessment. Decreased lower cervical spine mobility during L>R side glides, no pain or symptom provocation. Thoracic rib mobility and transverse process segmental mobility normal, as well; no pain or symptom provocation. PT-OP-G Mobility & Gait Start: 03/02/23 16:12 Freq: Status: Active Protocol: Document 03/02/23 16:13 NM (Rec: 03/02/23 16:43 NM [id number]) OP Gait Assessment Gait Gait Assistance Required: Independent PT-OP-H Neuro Start: 03/02/23 16:12 Freq: Status: Active Protocol: Document 03/02/23 16:13 NM (Rec: 03/02/23 16:43 NM [id number]) Sensation Evaluation Gross Sensation Gross Sensation WNL Comments Summary Comments Cervical, UE, thoracic dermatomes intact to light touch sensation bilaterally. PT-OP-J Posture/Palpation/Skin Start: 03/02/23 16:12 Freq: Status: Active Protocol: Document 03/02/23 16:13 NM (Rec: 03/02/23 16:43 NM [id number]) Posture Evaluation Position Standing Evaluation View Lateral Head/C-Spine Posture Forward Head T-Spine Posture Increased Kyphosis L-Spine Posture Decreased Lordosis Shoulder Posture (R) Elevated Scapula Posture (L) Elevated,(R) Elevated,(R) Tipped Arm Posture (L) Externally Rotated,(R) Externally Rotated Pelvis Posture Posterior Tilted Weight Distribution Balanced Hip Posture (L) Externally Rotated,(R) Externally Rotated Palpation Assessment Location Thoracic Spine Palpation Location Bilateral: Rhomboids, Mid- lower Trapezius, periscapular muscles Palpation Findings Soft Tissue Tightness,Muscle Guarding,Tenderness Palpation Details R Rhomboid more tender to palpation than L Cervical Spine Palpation Location Bilateral: suboccipitals, Upper trapezius, paraspinals, SCM, LS Palpation Findings Soft Tissue Tightness,Spasm, Muscle Guarding,Tenderness Palpation Details Spasm in B suboccipitals; tenderness in R upper trap/SCM - limiting mobility PT-OP-K Range of Motion Start: 03/02/23 16:12 Freq: Status: Active Protocol: Document 05/23/23 13:47 NM (Rec: 05/23/23 14:32 NM [id number]) Cervical Spine Range of Motion Cervical Spine Active Degrees Flexion 50 Extension 45 Rotation Left 90 Rotation Right 90 Lateral Flexion Left 30 Lateral Flexion Right 30 Comments Thoracic Spine flex: 60 deg ext: 20 deg B lateral flex: 25 deg L rotation: 10 cm R rotation: 10 cm PT-OP-L Special Tests Start: 03/02/23 16:12 Freq: Status: Active Protocol: Document 03/02/23 16:13 NM (Rec: 03/02/23 16:43 NM [id number]) Special Tests Cervical Spine Special Tests Transverse Ligament Test Results negative Comments no excessive motion Alar Ligament Test Results negative Comments no excessive motion in B lateral flexion or rotation Traction Test Results positive Comments relieves symptoms PT-OP-M Strength Start: 03/02/23 16:12 Freq: Status: Active Protocol: Document 05/23/23 13:47 NM (Rec: 05/23/23 14:32 NM [id number]) Cervical Spine Strength Cervical Spine Manual Muscle Testing Flexion (C1-2) 4+ Good+ Extension 4+ Good+ Rotation Left 4+ Good+ Rotation Right 4+ Good+ Lateral Flexion Left (C3) 4+ Good+ Lateral Flexion Right (C3) 4+ Good+ PT-OP-Q Treatments Start: 03/04/23 15:33 Freq: Status: Active Protocol: Document 05/26/23 16:41 NM (Rec: 05/26/23 17:10 NM [id number]) Cardio Equipment Upper Body Ergometer (UBE) Duration (Minutes) 5 RPM 15 Other warm up; reports unable to increase RPMs Gym Equipment Cable Column (Body Solid) clean Details clean motion with press to eye height; cue to prevent trunk ext Resistance 10# on dowel, then 20# on dowel Reps/Time 1x10 then 1x10 Low row Details trialed but pt reports low back/R hip pain Resistance lvl 2 cable (20#) Reps/Time 1x5 Lat Pull Down Details seated to chest; monitored for pain, none reported Resistance lvl 4 (40#), lvl 3 (30#) Reps/Time 1x10> 2x10 Row Details mid row; monitored for pain, none reported Resistance lvl 4(40#)>lvl 3 (30#) Reps/Time 1x10 >2x10 Therapeutic Exercises Sitting Exercises self mobilization Sitting Exercise Name rhomboids, UT, LS, RTC Side bilateral Equipment Used theracane Reps/Minutes 2 min ea side Comments reports relief after STM; instructed to use with heat Standing Exercises shoulder press Standing Exercise Name seated Side bilateral Resistance 10# db ea hand Equipment Used back supported by chair Reps/Minutes 2x10 Comments monitored for pain, none reported; good form Other Exercises child's pose, thread needle Other Exercise Name thread needle for thoracic mobility Side bilateral Resistance AROM, L>R Equipment Used mat on ground, elbow bent Reps/Minutes 1x10 ea side Comments reports pulling at R ribs with rot, R shldr pain in quadruped Manual Therapy Treatment Joint Mobilizations TS Joint B ribs 5-7, transverse processes Direction into ER/inf at TP Grade III Body Position Sitting Comments Mobilization with trunk rotation to address ribs, transverse process rotation. Added ER/inf glide at mid- thoracic TP with sidebend 1x5 then ipsi rotation 1x5 with pt performing brief functional isometric into floor to creater greater mobility at ribs Self-Care/Home Management Treatment Education Patient Education Home Exercise Program,Joint Protection,Pain Management Other Education 5 min-Educated on modalities for pain relief: heat, soft tissue mobilization; ergonomic sitting and standing posture (no HO issued). HEP: db cleans , self-STM. PT offered suggestions to pt regarding household items to simulate resistance levels for activities/HEP as pt does not have access to gym. E.g. for cleans: use of rake (rake, broom, etc) with bag holding cans, working up to dumbbell ( 25#) that pt has at home. 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 LTG Duration 12 visits Seven Impairment compliance, function, strength Short Term Goal (STG) Pt will report compliance with HEP at least 3x/wk to maximize gains made during PT sessions. STG Duration 6 visits Jail Goal (LTG) Pt will report and maintain compliance with HEP at least 3x/wk to demonstrate independence and maintain gains after discharge. 05/23/23: Reports daily compliance with HEP, but did not perform since last session on 05/1904/22/23: Reports compliance with HEP 2-3x/wk LTG Duration 12 visits Progressing Six Impairment Function Impairment NDI 21/50 Short Term Goal (STG) Pt will improve NDI score by at least 7 points in order to demonstrate better tolerance for activity. STG Duration 6 visits NOT MET Jail Goal (LTG) Pt will improve NDI score to less than 25/50 in order to demonstrate better tolerance for activity. 05/23/23: 26/50 04/22/23: 27/50, an increase ( worse) score since IE LTG Duration 12 visits NOT MET; goal updated Five Impairment function Impairment Pt reports unable to lift more than 20# due to pain Short Term Goal (STG) Pt will be able to lift at least 25# with 2/10 or less neck/back pain to demo improved activity tolerance and to return to PLOF. 04/22/23: Able to lift 25# from floor and from elevated surface to mimic work environment with 2/10 pain; unable to increase resistance due to pain STG Duration 6 visits MET Percussion Teacher Goal (LTG) Pt will be able to lift at least 40# (average [facility] weight) without compensation to demo improved activity tolerance to return to PLOF. 05/23/23: Able to lift 35# from floor and from elevated surface to mimic work environment 04/22/23: Able to lift 25# from floor and from elevated surface to mimic work environment with 2/10 pain; unable to increase resistance due to pain LTG Duration 12 visits NOT MET; goal updated Assessment Summary Assessment Pt tolerates sessions with reports of hanging in there or feels fine when asked about pain levels or difficulty of activities, unable to provide a more clear answer when asked to elaborate. Continued with progressive lifting for return to work type activities, with pt demonstrating improvements in form during lifts (shamir power clean). Pt performed drop sets for rows and lat pull downs, as unable to complete all sets at higher resistance levels without compensations into trunk extension. Cued for hip hinge, correct execution, and body mechanics. Trialed low row today but pt reports low back/ hip pain that began earlier this week so discontinued. Pt continues to have intermittent R rib pain that resolves with mobilization and soft tissue treatments. PT recommended pt discussing it with specialist next week. Pt would benefit from skilled PT for progressive trunk and core strengthening, body mechanics training, and endurance training in order to improve activity tolerance and return to PLOF. Physical Therapy Plan Frequency and Duration Frequency of Treatment 1-2x/wk Duration of treatment (weeks) 8 Plan of Care Start Date 05/23/23 Plan of Care End Date 07/19/23 Therapeutic Interventions Therapeutic Interventions Home Exercise Program,Joint Mobilizations,Manual Therapy, Neuromuscular Re-education, Patient/Caregiver Education, Self-Care/Home Management,Soft Tissue Mobilization, Therapeutic Activities, Therapeutic Exercises Modalities Cold Pack/Ice Massage,Electric Stimulation,Hot Packs, Iontophoresis,Ultrasound Next Visit Focus/Plan Next Note Type Treatment Note Next Visit Plan Emphasize power clean; Continue lifting and progress: scaption, over head lifting, upright row, lat pull down ( progress), row (progress), shoulder press (progress), D1- D2; continue serratus punch etc. Add bicep upper cut. Postural and lifting mechanics education for safety. Add squat + overhead lift, work simulation, STM; education on body mechanics Continue manual tx, rib mobilization
--- NOTE | 2023-05-30 14:11 | PT-OP ANOTE ---
Pt did not show up to appt despite confirming appt. PT called at 1410 and left message informing pt of next appt on 06/01 and reminding him of attendance policy. Pt has had several cancelations. PT informed pt that he will be discharged for violation of attendance policy if fails to follow attendance policy with 24 hr notice of cancellation or no shows to appt. desktop operator alerted director of casework services
--- NOTE | 2023-06-01 15:37 | PT.OTN ---
Current Diagnoses Strain of muscle, fascia and tendon at neck level, subsequent encounter (06/01/23) Physical Therapy Treatment Note PT-OP-A Visit Information Start: 03/02/23 16:12 Freq: Status: Active Protocol: Document 06/01/23 14:32 NM (Rec: 06/01/23 15:35 NM [id number]) Out-Patient Physical Therapy Visit Information Visit Information Visit Type Treatment Note Visit Note 07/28 Visit Start Time 14:30 Visit Stop Time 15:15 Visit Number 07/28 Evaluation Information Evaluation Date 03/02/23 PT-OP-B Current Condition Start: 03/02/23 16:12 Freq: Status: Active Protocol: Document 03/02/23 16:13 NM (Rec: 03/02/23 16:43 NM [id number]) Current Condition History of Current Condition Onset Date 01/19/23 Current Complaints neck and thoracic stiffness/ pain, muscle tightness, pressure in spine History of Current Condition Pt presents to clinic with cervical and thoracic pain beginning on 01/19/23 when pt was attempting set a windshield into a large car alone. He reports feeling something (cannot elaborate) in his R mid back when lifting the windshield and placing it in the car, but was not able to stop work due to a busy schedule. The next day his neck/back pain worsened and has not relented. The pain is most pronounced between his R scapula and spine, but he also has tenderness on the back of his head/neck. Symptoms also include neck/mid back stiffness along with tight muscles of the neck and between shoulder blades. He has been unable to work since 01/21/23. Pt had a previous shoulder surgery (biceps tendon/labrum repair) and had returned to work for about 6-7 months when the injury occurred. Treatment Goals Patient/Caregiver Goals Return to work, decrease pain Prior Functional Status Baseline Function- ADL's Independent Baseline Function- Mobility Independent Baseline Function- Work/School Able to perform most of job functions, has a trainee to help. He was completing a work conditioning program for prior shoulder surgery but did not complete program Current Functional Impairments (Reported) Functional Limitations- ADL's Able to perform ADLs with assistance due to pain Functional Limitations- Mobility/Gait Pain with movement (standing, walking) and sustained postures (sitting, standing) Functional Limitations- Work/School Currently unable to work due to pain PT-OP-C Subjective Start: 03/02/23 16:12 Freq: Status: Active Protocol: Document 06/01/23 14:32 NM (Rec: 06/01/23 15:35 NM [id number]) OP-PT Subjective Patient Comments Patient Comments Pt reports that he is tired but no major changes after last session. He had his specialist appt yesterday, and he is disappointed because he reports that they did not look at anything recent or address his new low back pain. He missed last session because he was sick and states he has not been doing his HEP . He has an MRI for the thoracic and cervical spine/ shoulder on 06/07 and follow up with specialist on 06/14. PT-OP-E Functional Tests Start: 03/02/23 16:12 Freq: Status: Active Protocol: Document 03/02/23 16:13 NM (Rec: 03/02/23 16:43 NM [id number]) Functional Tests Other Deep Neck Flexor Endurance Test Score 5 seconds (norm = 38 seconds) Comment Supine with neck in cervical retraction and neck flexion off table PT-OP-F Manual Assessment Start: 03/02/23 16:12 Freq: Status: Active Protocol: Document 03/02/23 16:13 NM (Rec: 03/02/23 16:43 NM [id number]) Manual Assessments Soft Tissue Assessment Soft Tissue Mobility Assessment Pt able to tolerate moderate intensity soft tissue assessment. Demos decreased soft tissue mobility of R upper trapezius, R SCM, B rhomboids, and B rotator cuff muscles. Joint Mobility Assessment Joint Mobility Assessment P-A springing of cervical and thoracic spinous processes have normal segmental mobility . Pt reports symptom relief with assessment. Decreased lower cervical spine mobility during L>R side glides, no pain or symptom provocation. Thoracic rib mobility and transverse process segmental mobility normal, as well; no pain or symptom provocation. PT-OP-G Mobility & Gait Start: 03/02/23 16:12 Freq: Status: Active Protocol: Document 03/02/23 16:13 NM (Rec: 03/02/23 16:43 NM [id number]) OP Gait Assessment Gait Gait Assistance Required: Independent PT-OP-H Neuro Start: 03/02/23 16:12 Freq: Status: Active Protocol: Document 03/02/23 16:13 NM (Rec: 03/02/23 16:43 NM [id number]) Sensation Evaluation Gross Sensation Gross Sensation WNL Comments Summary Comments Cervical, UE, thoracic dermatomes intact to light touch sensation bilaterally. PT-OP-J Posture/Palpation/Skin Start: 03/02/23 16:12 Freq: Status: Active Protocol: Document 03/02/23 16:13 NM (Rec: 03/02/23 16:43 NM [id number]) Posture Evaluation Position Standing Evaluation View Lateral Head/C-Spine Posture Forward Head T-Spine Posture Increased Kyphosis L-Spine Posture Decreased Lordosis Shoulder Posture (R) Elevated Scapula Posture (L) Elevated,(R) Elevated,(R) Tipped Arm Posture (L) Externally Rotated,(R) Externally Rotated Pelvis Posture Posterior Tilted Weight Distribution Balanced Hip Posture (L) Externally Rotated,(R) Externally Rotated Palpation Assessment Location Thoracic Spine Palpation Location Bilateral: Rhomboids, Mid- lower Trapezius, periscapular muscles Palpation Findings Soft Tissue Tightness,Muscle Guarding,Tenderness Palpation Details R Rhomboid more tender to palpation than L Cervical Spine Palpation Location Bilateral: suboccipitals, Upper trapezius, paraspinals, SCM, LS Palpation Findings Soft Tissue Tightness,Spasm, Muscle Guarding,Tenderness Palpation Details Spasm in B suboccipitals; tenderness in R upper trap/SCM - limiting mobility PT-OP-K Range of Motion Start: 03/02/23 16:12 Freq: Status: Active Protocol: Document 05/23/23 13:47 NM (Rec: 05/23/23 14:32 NM [id number]) Cervical Spine Range of Motion Cervical Spine Active Degrees Flexion 50 Extension 45 Rotation Left 90 Rotation Right 90 Lateral Flexion Left 30 Lateral Flexion Right 30 Comments Thoracic Spine flex: 60 deg ext: 20 deg B lateral flex: 25 deg L rotation: 10 cm R rotation: 10 cm PT-OP-L Special Tests Start: 03/02/23 16:12 Freq: Status: Active Protocol: Document 03/02/23 16:13 NM (Rec: 03/02/23 16:43 NM [id number]) Special Tests Cervical Spine Special Tests Transverse Ligament Test Results negative Comments no excessive motion Alar Ligament Test Results negative Comments no excessive motion in B lateral flexion or rotation Traction Test Results positive Comments relieves symptoms PT-OP-M Strength Start: 03/02/23 16:12 Freq: Status: Active Protocol: Document 05/23/23 13:47 NM (Rec: 05/23/23 14:32 NM [id number]) Cervical Spine Strength Cervical Spine Manual Muscle Testing Flexion (C1-2) 4+ Good+ Extension 4+ Good+ Rotation Left 4+ Good+ Rotation Right 4+ Good+ Lateral Flexion Left (C3) 4+ Good+ Lateral Flexion Right (C3) 4+ Good+ PT-OP-Q Treatments Start: 03/04/23 15:33 Freq: Status: Active Protocol: Document 06/01/23 14:32 NM (Rec: 06/01/23 15:35 NM [id number]) Cardio Equipment Elliptical Duration (Minutes) 4 Resistance 0 Other for reciprocal UE/LE Gym Equipment Cable Column (Body Solid) clean Details clean motion with press to eye height; improved neutral spine Resistance 2 10# db, 20# single db, 25# Reps/Time 2x10, 1x10, 1x5 Lat Pull Down Details seated to chest; monitored for pain, none reported Resistance lvl 3 (30#) Reps/Time 2x15 Therapeutic Exercises Supine Exercises chop Supine Exercise Name trialed in hooklying Side bilateral Resistance 8# tball Reps/Minutes 1x5 ea direction Sitting Exercises self mobilization Sitting Exercise Name rhomboids, RTC, UT Side bilateral Equipment Used theracane Reps/Minutes 2 min ea side Comments reports relief after STM; instructed to use with heat Crossed arm stretch Sitting Exercise Name stretching supraspinatus, RTC, post shldr capsule/rhomboid for pain relief Side bilateral Reps/Minutes 1x60 ea lat stretch Sitting Exercise Name seated fwd lat stretch Side bilateral Reps/Minutes 2x30 Comments reports feels it in his hips Standing Exercises chop Standing Exercise Name D2 flexion pattern, D1 extension pattern Side bilateral Resistance cable lvl 2 (20#) Reps/Minutes 1x10 ea side Comments cued for core stab, hand placement and form Manual Therapy Treatment Soft Tissue Mobilization Thoracic Spine Body Location R rhomboids, lat, teres, intercostals Mobilization Type Oscillations,Rolling,Sustained Pressure,Trigger Point Release Intensity/Depth Moderate Body Position Sidelying Comments Trigger points at R lat and teres. Performed trigger point release followed by oscillations for pain reduction and further relaxation. Pt cued for deep breathing. Performed Mobilization with movement uisng FF/IR, retraction/ protraction, and ER/IR. Self-Care/Home Management Treatment Education Patient Education Body Mechanics,Home Exercise Program,Joint Protection,Pain Management,Posture,Safety Other Education 5 minutes: Re-educated on gentle soft tissue mobilization, modalities for pain relief. Educated pt on sitting and standing posture, effect on spine, in addition to importance of increasing activity to decrease stiffness . Verbally reviewed HEP and encouraged pt to continue performing, educated regarding body mechanics during lifting . No update to HEP as pt has not been performing current HEP despite multiple recommendations to use home equipment or issued bands PT-OP-T Assessment and Plan Start: 03/02/23 16:12 Freq: Status: Active Protocol: Document 06/01/23 14:32 NM (Rec: 06/01/23 15:35 NM [id number]) Physical Therapy Assessment Goals Nine Impairment function, strength, activity Impairment Pt unable to work Jail Goal (LTG) Pt will be able to participate in work or work conditioning program if appropriate. LTG Duration 12 visits Seven Impairment compliance, function, strength Short Term Goal (STG) Pt will report compliance with HEP at least 3x/wk to maximize gains made during PT sessions. 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 05/23/23: Reports daily compliance with HEP, but did not perform since last session on 05/1904/22/23: Reports compliance with HEP 2-3x/wk LTG Duration 12 visits Progressing Six Impairment Function Impairment NDI 21/50 Short Term Goal (STG) Pt will improve NDI score by at least 7 points in order to demonstrate better tolerance for activity. STG Duration 6 visits NOT MET Jail Goal (LTG) Pt will improve NDI score to less than 25/50 in order to demonstrate better tolerance for activity. 05/23/23: 26/50 04/22/23: 27/50, an increase ( worse) score since IE LTG Duration 12 visits NOT MET; goal updated Five Impairment function Impairment Pt reports unable to lift more than 20# due to pain Short Term Goal (STG) Pt will be able to lift at least 25# with 2/10 or less neck/back pain to demo improved activity tolerance and to return to PLOF. 04/22/23: Able to lift 25# from floor and from elevated surface to mimic work environment with 2/10 pain; unable to increase resistance due to pain STG Duration 6 visits MET Jail Goal (LTG) Pt will be able to lift at least 40# (average [facility] weight) without compensation to demo improved activity tolerance to return to PLOF. 05/23/23: Able to lift 35# from floor and from elevated surface to mimic work environment 04/22/23: Able to lift 25# from floor and from elevated surface to mimic work environment with 2/10 pain; unable to increase resistance due to pain LTG Duration 12 visits NOT MET; goal updated Assessment Summary Assessment Pt tolerated session well without any reports of pain in his thoracic and cervical spine. He is progressing with his lifting and is self- limiting with activity tolerance. Manual treatment to decrease soft tissue restrictions of R lat, teres, and rhomboid; decreased tenderness and trigger points. Initiated supine and standing PNF chops for greater spinal mobility, strengthening, and paraspinal/core strength. Pt requires cues for correct execution and core stability to prevent trunk extension compensation. Pt able to perform with good form after cueing, no pain. Progressed to 25# clean-lift today to simulate pt work environment; pt challenged but can perform for short reps. Trialed elliptical today for reciprocal UE/LE motion, increase heart rate for progressive endurance training . Pt will be having additional imaging and follow ups with specialists in upcoming weeks related to condition. Pt is progressing well overall; has not been compliant with HEP or initiating any form of daily activity despite education and encouragement from PT. PT and pt discussed current progress , recommended increasing pt activity levels at home, and continued recommendation for work conditioning as pt is progressing well with PT. Pt would benefit from skilled PT for progressive trunk and core strengthening, activity and body mechanics training, in order to improve activity tolerance and QOL. Physical Therapy Plan Frequency and Duration Frequency of Treatment 1-2x/wk Duration of treatment (weeks) 8 Plan of Care Start Date 05/23/23 Plan of Care End Date 07/19/23 Therapeutic Interventions Therapeutic Interventions Home Exercise Program,Joint Mobilizations,Manual Therapy, Neuromuscular Re-education, Patient/Caregiver Education, Self-Care/Home Management,Soft Tissue Mobilization, Therapeutic Activities, Therapeutic Exercises Modalities Cold Pack/Ice Massage,Electric Stimulation,Hot Packs, Iontophoresis,Ultrasound Next Visit Focus/Plan Next Note Type Treatment Note Next Visit Plan Emphasize power clean and increasing heart rate with activity (e.g. elliptical vs bike); Continue lifting and progress: over head lifting, upright row, lat pull down ( progress), row (progress), shoulder press (progress), D1- D2 chop; continue serratus punch etc. Add bicep upper cut. Postural and lifting mechanics education for safety . Add squat + overhead lift, work simulation, STM; education on body mechanics Continue manual tx, rib mobilization prn
--- NOTE | 2023-06-09 15:16 | PT.OTN ---
Current Diagnoses Strain of muscle, fascia and tendon at neck level, subsequent encounter (06/09/23) Physical Therapy Treatment Note PT-OP-A Visit Information Start: 03/02/23 16:12 Freq: Status: Active Protocol: Document 06/09/23 14:36 SP (Rec: 06/09/23 15:34 SP [id number]) Out-Patient Physical Therapy Visit Information Visit Information Visit Type Treatment Note Visit Note 08/27 Visit Start Time 14:36 Visit Stop Time 15:16 Visit Number 08/27 Evaluation Information Evaluation Date 03/02/23 PT-OP-B Current Condition Start: 03/02/23 16:12 Freq: Status: Active Protocol: Document 03/02/23 16:13 NM (Rec: 03/02/23 16:43 NM [id number]) Current Condition History of Current Condition Onset Date 01/19/23 Current Complaints neck and thoracic stiffness/ pain, muscle tightness, pressure in spine History of Current Condition Pt presents to clinic with cervical and thoracic pain beginning on 01/19/23 when pt was attempting set a windshield into a large car alone. He reports feeling something (cannot elaborate) in his R mid back when lifting the windshield and placing it in the car, but was not able to stop work due to a busy schedule. The next day his neck/back pain worsened and has not relented. The pain is most pronounced between his R scapula and spine, but he also has tenderness on the back of his head/neck. Symptoms also include neck/mid back stiffness along with tight muscles of the neck and between shoulder blades. He has been unable to work since 01/21/23. Pt had a previous shoulder surgery (biceps tendon/labrum repair) and had returned to work for about 6-7 months when the injury occurred. Treatment Goals Patient/Caregiver Goals Return to work, decrease pain Prior Functional Status Baseline Function- ADL's Independent Baseline Function- Mobility Independent Baseline Function- Work/School Able to perform most of job functions, has a trainee to help. He was completing a work conditioning program for prior shoulder surgery but did not complete program Current Functional Impairments (Reported) Functional Limitations- ADL's Able to perform ADLs with assistance due to pain Functional Limitations- Mobility/Gait Pain with movement (standing, walking) and sustained postures (sitting, standing) Functional Limitations- Work/School Currently unable to work due to pain PT-OP-C Subjective Start: 03/02/23 16:12 Freq: Status: Active Protocol: Document 06/09/23 14:36 SP (Rec: 06/09/23 15:34 SP [id number]) OP-PT Subjective Patient Comments Patient Comments Pt reports his R hip hurting alot after got home from last tx and when wakes up in the am. He states got MRI and they only did CS not shld or TS. Has follow up 06/14 for results . PT-OP-E Functional Tests Start: 03/02/23 16:12 Freq: Status: Active Protocol: Document 03/02/23 16:13 NM (Rec: 03/02/23 16:43 NM [id number]) Functional Tests Other Deep Neck Flexor Endurance Test Score 5 seconds (norm = 38 seconds) Comment Supine with neck in cervical retraction and neck flexion off table PT-OP-F Manual Assessment Start: 03/02/23 16:12 Freq: Status: Active Protocol: Document 03/02/23 16:13 NM (Rec: 03/02/23 16:43 NM [id number]) Manual Assessments Soft Tissue Assessment Soft Tissue Mobility Assessment Pt able to tolerate moderate intensity soft tissue assessment. Demos decreased soft tissue mobility of R upper trapezius, R SCM, B rhomboids, and B rotator cuff muscles. Joint Mobility Assessment Joint Mobility Assessment P-A springing of cervical and thoracic spinous processes have normal segmental mobility . Pt reports symptom relief with assessment. Decreased lower cervical spine mobility during L>R side glides, no pain or symptom provocation. Thoracic rib mobility and transverse process segmental mobility normal, as well; no pain or symptom provocation. PT-OP-G Mobility & Gait Start: 03/02/23 16:12 Freq: Status: Active Protocol: Document 03/02/23 16:13 NM (Rec: 03/02/23 16:43 NM [id number]) OP Gait Assessment Gait Gait Assistance Required: Independent PT-OP-H Neuro Start: 03/02/23 16:12 Freq: Status: Active Protocol: Document 03/02/23 16:13 NM (Rec: 03/02/23 16:43 NM [id number]) Sensation Evaluation Gross Sensation Gross Sensation WNL Comments Summary Comments Cervical, UE, thoracic dermatomes intact to light touch sensation bilaterally. PT-OP-J Posture/Palpation/Skin Start: 03/02/23 16:12 Freq: Status: Active Protocol: Document 03/02/23 16:13 NM (Rec: 03/02/23 16:43 NM [id number]) Posture Evaluation Position Standing Evaluation View Lateral Head/C-Spine Posture Forward Head T-Spine Posture Increased Kyphosis L-Spine Posture Decreased Lordosis Shoulder Posture (R) Elevated Scapula Posture (L) Elevated,(R) Elevated,(R) Tipped Arm Posture (L) Externally Rotated,(R) Externally Rotated Pelvis Posture Posterior Tilted Weight Distribution Balanced Hip Posture (L) Externally Rotated,(R) Externally Rotated Palpation Assessment Location Thoracic Spine Palpation Location Bilateral: Rhomboids, Mid- lower Trapezius, periscapular muscles Palpation Findings Soft Tissue Tightness,Muscle Guarding,Tenderness Palpation Details R Rhomboid more tender to palpation than L Cervical Spine Palpation Location Bilateral: suboccipitals, Upper trapezius, paraspinals, SCM, LS Palpation Findings Soft Tissue Tightness,Spasm, Muscle Guarding,Tenderness Palpation Details Spasm in B suboccipitals; tenderness in R upper trap/SCM - limiting mobility PT-OP-K Range of Motion Start: 03/02/23 16:12 Freq: Status: Active Protocol: Document 05/23/23 13:47 NM (Rec: 05/23/23 14:32 NM [id number]) Cervical Spine Range of Motion Cervical Spine Active Degrees Flexion 50 Extension 45 Rotation Left 90 Rotation Right 90 Lateral Flexion Left 30 Lateral Flexion Right 30 Comments Thoracic Spine flex: 60 deg ext: 20 deg B lateral flex: 25 deg L rotation: 10 cm R rotation: 10 cm PT-OP-L Special Tests Start: 03/02/23 16:12 Freq: Status: Active Protocol: Document 03/02/23 16:13 NM (Rec: 03/02/23 16:43 NM [id number]) Special Tests Cervical Spine Special Tests Transverse Ligament Test Results negative Comments no excessive motion Alar Ligament Test Results negative Comments no excessive motion in B lateral flexion or rotation Traction Test Results positive Comments relieves symptoms PT-OP-M Strength Start: 03/02/23 16:12 Freq: Status: Active Protocol: Document 05/23/23 13:47 NM (Rec: 05/23/23 14:32 NM [id number]) Cervical Spine Strength Cervical Spine Manual Muscle Testing Flexion (C1-2) 4+ Good+ Extension 4+ Good+ Rotation Left 4+ Good+ Rotation Right 4+ Good+ Lateral Flexion Left (C3) 4+ Good+ Lateral Flexion Right (C3) 4+ Good+ PT-OP-Q Treatments Start: 03/04/23 15:33 Freq: Status: Active Protocol: Document 06/09/23 14:36 SP (Rec: 06/09/23 15:34 SP [id number]) Cardio Equipment Elliptical Duration (Minutes) 4 Resistance 0 Other for reciprocal UE/LE Gym Equipment Cable Column (Body Solid) clean Details clean motion with press to eye height; improved neutral spine Resistance 10# leg wt on dowel, 20# (2 DB ), 25# leg on dowel Reps/Time 2x10, 1x10, 1x5 Lat Pull Down Details seated to chest; monitored for pain, none reported Resistance (30#) Reps/Time 2x15 (over hand, under hand) shld ext Details straight arm Resistance 15# Reps/Time cued core stab, scap set, chin tuck; no pain Therapeutic Exercises Supine Exercises chop Supine Exercise Name hooklying Side bilateral Resistance 8# Reps/Minutes 1x5 ea direction Sitting Exercises self mobilization Sitting Exercise Name rhomboids, RTC, UT Side bilateral Equipment Used theracane and ball at wall Reps/Minutes 2 min ea side Comments reports relief after STM; instructed to use with heat Standing Exercises Hip stretch Resistance L>R Equipment Used contact cable post support Reps/Minutes 2 reps 15 SH Comments cued TA/PPT for no LB recruitment. chop Standing Exercise Name D2 flexion pattern & D1 extension pattern Side bilateral Resistance cable (20#) Reps/Minutes 1x10 both dirctions ea side Comments cued for core stab, hand placement and form Manual Therapy Treatment Soft Tissue Mobilization Thoracic Spine Body Location R rhomboids, lat, teres, intercostals Mobilization Type Strumming,Sustained Pressure, Trigger Point Release Intensity/Depth Moderate Body Position Sidelying Comments Strumming with oscilations for decrease tension and rib mobility. Joint Mobilizations TS Joint R ribs 5-7 Direction caudal Grade II Body Position Sidelying Comments caudal /c breath exhale mobility at ribs PT-OP-T Assessment and Plan Start: 03/02/23 16:12 Freq: Status: Active Protocol: Document 06/09/23 14:36 SP (Rec: 06/09/23 15:34 SP [id number]) Physical Therapy Assessment Goals Nine Impairment function, strength, activity Impairment Pt unable to work Group Home Goal (LTG) Pt will be able to participate in work or work conditioning program if appropriate. LTG Duration 12 visits Seven Impairment compliance, function, strength Short Term Goal (STG) Pt will report compliance with HEP at least 3x/wk to maximize gains made during PT sessions. STG Duration 6 visits Group Home Goal (LTG) Pt will report and maintain compliance with HEP at least 3x/wk to demonstrate independence and maintain gains after discharge. 05/23/23: Reports daily compliance with HEP, but did not perform since last session on 05/1904/22/23: Reports compliance with HEP 2-3x/wk LTG Duration 12 visits Progressing Six Impairment Function Impairment NDI 21/50 Short Term Goal (STG) Pt will improve NDI score by at least 7 points in order to demonstrate better tolerance for activity. STG Duration 6 visits NOT MET Courtesy Driver Goal (LTG) Pt will improve NDI score to less than 25/50 in order to demonstrate better tolerance for activity. 05/23/23: 26/50 04/22/23: 27/50, an increase ( worse) score since IE LTG Duration 12 visits NOT MET; goal updated Five Impairment function Impairment Pt reports unable to lift more than 20# due to pain Short Term Goal (STG) Pt will be able to lift at least 25# with 2/10 or less neck/back pain to demo improved activity tolerance and to return to PLOF. 04/22/23: Able to lift 25# from floor and from elevated surface to mimic work environment with 2/10 pain; unable to increase resistance due to pain STG Duration 6 visits MET Courtesy Driver Goal (LTG) Pt will be able to lift at least 40# (average windshield weight) without compensation to demo improved activity tolerance to return to PLOF. 05/23/23: Able to lift 35# from floor and from elevated surface to mimic work environment 04/22/23: Able to lift 25# from floor and from elevated surface to mimic work environment with 2/10 pain; unable to increase resistance due to pain LTG Duration 12 visits NOT MET; goal updated Assessment Summary Assessment Pt reports little discomfort upper TS during lat pull down, improved cues neutral CS and change from over to underhand scapular depression LT and lat fac. Pt reported more effort during ther ex today. Improved form during cleans continued resistance to support lifting items return to work. Improved scapular and TS mobility post manual. Physical Therapy Plan Frequency and Duration Frequency of Treatment 1-2x/wk Duration of treatment (weeks) 8 Plan of Care Start Date 05/23/23 Plan of Care End Date 07/19/23 Therapeutic Interventions Therapeutic Interventions Home Exercise Program,Joint Mobilizations,Manual Therapy, Neuromuscular Re-education, Patient/Caregiver Education, Self-Care/Home Management,Soft Tissue Mobilization, Therapeutic Activities, Therapeutic Exercises Modalities Cold Pack/Ice Massage,Electric Stimulation,Hot Packs, Iontophoresis,Ultrasound Next Visit Focus/Plan Next Note Type Treatment Note Next Visit Plan Emphasize power clean and increasing heart rate with activity (e.g. elliptical vs bike); Continue lifting and progress: over head lifting, upright row, lat pull down ( progress), row (progress), shoulder press (progress), D1- D2 chop; continue serratus punch etc. Add bicep upper cut. Postural and lifting mechanics education for safety . Add squat + overhead lift, work simulation, STM; education on body mechanics Continue manual tx, rib mobilization prn
--- NOTE | 2023-06-17 13:25 | PT-OP ANOTE ---
Pt arrives to clinic, reports that he has been dizzy in standing and sitting over the last week. He states he hasn't been able to do much due to the increasing dizziness in standing. Reports hasn't been sick or congested, not positional vertigo. States better when laying down. He has had a headache on the R side of his head, states pulsating, worse on R side of head near his ear. Reports no changes in strength, but reports changes in balance ~stumbling. PT took blood pressure at start of session in sitting L arm, 160/108 mmHg with 108 bpm. Pt rested 5 minutes in sitting, then remeasured at 174/115 mmHg, 99% spo2, 98 bpm. Pt reports this is not his normal. Did not perform session, PT took pt to ED.
--- NOTE | 2023-06-20 15:19 | PT-OP ANOTE ---
PT called and left voicemail at 1520 to follow up with pt after 3/1 visit. PT informed pt that a note/referral from PCP stating it is ok for pt to resume PT is needed before next appt if no abnormal findings. PT asked pt to call back before next appt if any questions/concerns.
--- NOTE | 2023-06-22 13:38 | PT-OP ANOTE ---
Pt called and cancelled appt today, CANCER GENETIC COUNSELOR chart reviewing no further information given to precision honing machine operator nor seen in reports regarding request for info from Dr clearance to return to PT. Next appt 06/24/23 with CANCER GENETIC COUNSELOR.
--- NOTE | 2023-06-23 16:26 | PT-OP ANOTE ---
Pt cancelled tomorrow appt, 3 consecutive tx. SLOT FLOOR ATTENDANT called pt and stated saw physician today and ordered labs due to stopped med no refill past 2-3 weeks as told may result in dizziness having. didn't identify particularly if ok to return to PT as Magalys requested. Pt has message into office for results and if safe to return to PT, will keep us posted. Pt stated notified case/vocational/insurance claims examiner so is up to date with dizziness, appts and cancelled PT appts as a result. ALso mentioned to manager laboratory that PT requested DR note return to PT for safety, awaiting testing results Office ordered and response when can continue PT.
--- NOTE | 2023-06-28 15:46 | PT-OP ANOTE ---
PT called and spoke to pt at 15:38 today because he's canceled last 3 appts following ED visit on 06/17/23. Pt reports that he recently was put back on his anti depressant medication and given a beta danie to address BP; has been taking BP daily. He followed up with doctor about returning to PT but pt reports that doctor is wanting to see how pt tolerates medication before resuming. Will provide note giving ok to return. PT and pt also spoke about pt's authorization expiring on 06/30, PT will reach out to get more auth for remaining visits as POC expires 07/19/23. Recommended pt make more visits as he doesn't have many scheduled. PT and pt also discussed POC and PT will reach out for MD specialist notes/imaging[facility]ations from [facility]. Pt is not wanting to get surgery or epidural injection for pain due to risks/side effects, and is planning on trying pain management course if PT unsuccessful. PT reminded pt of last scheduled upcoming appt on 06/30. Pt verbalizes agreement
--- NOTE | 2023-07-01 13:23 | PT-OP ANOTE ---
Pt called today and cancelled appt due to health reasons as he does not have note from PCP to return to PT. Per message given to front desk worker, pt cannot find the note in his mychart and has to go mushroom picker note physically from PCP but cannot do today. PT had talked to pt earlier in week about making further appt, but pt did not call to schedule. help desk consultant currently working to put pt back on schedule as today's appt was last scheduled.
--- NOTE | 2023-07-06 14:08 | PT-OP ANOTE ---
Pt showed up to appt but doctor has not cleared for return to PT. lead front desk agent called MD's office when pt and PT present, but their receptionist/telephone operator and medical charge entry specialist unsure if pt can return yet. Pt next appt scheduled for tomorrow. Pt planning to call and follow up with MD today prior to appt tomorrow 07/06
--- NOTE | 2023-07-07 15:53 | PT.OTN ---
Current Diagnoses Strain of muscle, fascia and tendon at neck level, subsequent encounter (07/07/23) Physical Therapy Treatment Note PT-OP-A Visit Information Start: 03/02/23 16:12 Freq: Status: Active Protocol: Document 07/07/23 09:05 NM (Rec: 07/07/23 09:45 NM [id number]) Out-Patient Physical Therapy Visit Information Visit Information Visit Type Treatment Note Visit Start Time 09:01 Visit Stop Time 09:45 Visit Number 09/27 Evaluation Information Evaluation Date 03/02/23 PT-OP-B Current Condition Start: 03/02/23 16:12 Freq: Status: Active Protocol: Document 03/02/23 16:13 NM (Rec: 03/02/23 16:43 NM [id number]) Current Condition History of Current Condition Onset Date 01/19/23 Current Complaints neck and thoracic stiffness/ pain, muscle tightness, pressure in spine History of Current Condition Pt presents to clinic with cervical and thoracic pain beginning on 01/19/23 when pt was attempting set a windshield into a large car alone. He reports feeling something (cannot elaborate) in his R mid back when lifting the windshield and placing it in the car, but was not able to stop work due to a busy schedule. The next day his neck/back pain worsened and has not relented. The pain is most pronounced between his R scapula and spine, but he also has tenderness on the back of his head/neck. Symptoms also include neck/mid back stiffness along with tight muscles of the neck and between shoulder blades. He has been unable to work since 01/21/23. Pt had a previous shoulder surgery (biceps tendon/labrum repair) and had returned to work for about 6-7 months when the injury occurred. Treatment Goals Patient/Caregiver Goals Return to work, decrease pain Prior Functional Status Baseline Function- ADL's Independent Baseline Function- Mobility Independent Baseline Function- Work/School Able to perform most of job functions, has a trainee to help. He was completing a work conditioning program for prior shoulder surgery but did not complete program Current Functional Impairments (Reported) Functional Limitations- ADL's Able to perform ADLs with assistance due to pain Functional Limitations- Mobility/Gait Pain with movement (standing, walking) and sustained postures (sitting, standing) Functional Limitations- Work/School Currently unable to work due to pain PT-OP-C Subjective Start: 03/02/23 16:12 Freq: Status: Active Protocol: Document 07/07/23 09:05 NM (Rec: 07/07/23 09:45 NM [id number]) OP-PT Subjective Patient Comments Patient Comments Pt reports 3/10 pain today, reports hasn't been dping anything. Cleared from MD to return to PT after BP. BP 133/ 90 prior visit[address] He saw Dr. Cantor for MRI, but has transferred care to Dr. Gomez at same clinic for pain management/rehab PT-OP-E Functional Tests Start: 03/02/23 16:12 Freq: Status: Active Protocol: Document 03/02/23 16:13 NM (Rec: 03/02/23 16:43 NM [id number]) Functional Tests Other Deep Neck Flexor Endurance Test Score 5 seconds (norm = 38 seconds) Comment Supine with neck in cervical retraction and neck flexion off table PT-OP-F Manual Assessment Start: 03/02/23 16:12 Freq: Status: Active Protocol: Document 03/02/23 16:13 NM (Rec: 03/02/23 16:43 NM [id number]) Manual Assessments Soft Tissue Assessment Soft Tissue Mobility Assessment Pt able to tolerate moderate intensity soft tissue assessment. Demos decreased soft tissue mobility of R upper trapezius, R SCM, B rhomboids, and B rotator cuff muscles. Joint Mobility Assessment Joint Mobility Assessment P-A springing of cervical and thoracic spinous processes have normal segmental mobility . Pt reports symptom relief with assessment. Decreased lower cervical spine mobility during L>R side glides, no pain or symptom provocation. Thoracic rib mobility and transverse process segmental mobility normal, as well; no pain or symptom provocation. PT-OP-G Mobility & Gait Start: 03/02/23 16:12 Freq: Status: Active Protocol: Document 03/02/23 16:13 NM (Rec: 03/02/23 16:43 NM [id number]) OP Gait Assessment Gait Gait Assistance Required: Independent PT-OP-H Neuro Start: 03/02/23 16:12 Freq: Status: Active Protocol: Document 03/02/23 16:13 NM (Rec: 03/02/23 16:43 NM [id number]) Sensation Evaluation Gross Sensation Gross Sensation WNL Comments Summary Comments Cervical, UE, thoracic dermatomes intact to light touch sensation bilaterally. PT-OP-J Posture/Palpation/Skin Start: 03/02/23 16:12 Freq: Status: Active Protocol: Document 03/02/23 16:13 NM (Rec: 03/02/23 16:43 NM [id number]) Posture Evaluation Position Standing Evaluation View Lateral Head/C-Spine Posture Forward Head T-Spine Posture Increased Kyphosis L-Spine Posture Decreased Lordosis Shoulder Posture (R) Elevated Scapula Posture (L) Elevated,(R) Elevated,(R) Tipped Arm Posture (L) Externally Rotated,(R) Externally Rotated Pelvis Posture Posterior Tilted Weight Distribution Balanced Hip Posture (L) Externally Rotated,(R) Externally Rotated Palpation Assessment Location Thoracic Spine Palpation Location Bilateral: Rhomboids, Mid- lower Trapezius, periscapular muscles Palpation Findings Soft Tissue Tightness,Muscle Guarding,Tenderness Palpation Details R Rhomboid more tender to palpation than L Cervical Spine Palpation Location Bilateral: suboccipitals, Upper trapezius, paraspinals, SCM, LS Palpation Findings Soft Tissue Tightness,Spasm, Muscle Guarding,Tenderness Palpation Details Spasm in B suboccipitals; tenderness in R upper trap/SCM - limiting mobility PT-OP-K Range of Motion Start: 03/02/23 16:12 Freq: Status: Active Protocol: Document 07/07/23 09:05 NM (Rec: 07/07/23 09:45 NM [id number]) Cervical Spine Range of Motion Cervical Spine Active Degrees Flexion 50 Extension 45 Rotation Left 90 Rotation Right 90 Lateral Flexion Left 30 Lateral Flexion Right 30 Comments Thoracic Spine flex: 60 deg ext: 20 deg B lateral flex: 25 deg L rotation: 10 cm R rotation: 10 cm 07/07/23: 45 deg flex, 40 deg ext, 35 deg L SB, 30 deg R SB, 65 deg L rot, 50 R rot TS rotation L 4 cm, 5 cm R rot PT-OP-L Special Tests Start: 03/02/23 16:12 Freq: Status: Active Protocol: Document 03/02/23 16:13 NM (Rec: 03/02/23 16:43 NM [id number]) Special Tests Cervical Spine Special Tests Transverse Ligament Test Results negative Comments no excessive motion Alar Ligament Test Results negative Comments no excessive motion in B lateral flexion or rotation Traction Test Results positive Comments relieves symptoms PT-OP-M Strength Start: 03/02/23 16:12 Freq: Status: Active Protocol: Document 07/07/23 09:05 NM (Rec: 07/07/23 09:45 NM [id number]) Cervical Spine Strength Cervical Spine Manual Muscle Testing Flexion (C1-2) 4+ Good+ Extension 4+ Good+ Rotation Left 4+ Good+ Rotation Right 4+ Good+ Lateral Flexion Left (C3) 4+ Good+ Lateral Flexion Right (C3) 4+ Good+ Comments 07/07/23: 4+/5 for all, pain free Trunk Strength Trunk Manual Muscle Testing Flexion 4 Good Extension 4+ Good+ Rotation Left 4+ Good+ Rotation Right 4+ Good+ Lateral Flexion Left 4+ Good+ Lateral Flexion Right 4+ Good+ Comments 07/07/23: 4+/5 for all, pain free PT-OP-Q Treatments Start: 03/04/23 15:33 Freq: Status: Active Protocol: Document 07/07/23 09:05 NM (Rec: 07/07/23 09:45 NM [id number]) Therapeutic Exercises Supine Exercises Thoracic ext Supine Exercise Name 1/2 foam roller Side bilateral Reps/Minutes 60 Comments good stretch, pain free Pec stretch Supine Exercise Name 1/2 foam roller Equipment Used supine over foam roller Reps/Minutes 60 Comments arms in 90 deg T position, good feedback stretch Prone Exercises Cat cow Prone Exercise Name for spinal mobility, decrease stiffness Side bilateral Equipment Used on mat Reps/Minutes 1x5 Comments stiff; cued pain free range IYT's Prone Exercise Name I, T with ER, W, Y Side bilateral Equipment Used post manual treatment Reps/Minutes 2x10 Comments prn cues at scapula for depress/retract Sidelying Exercises Open Books Side bilateral Reps/Minutes 1x10 ea Sitting Exercises lat stretch Sitting Exercise Name seated fwd lat stretch Side bilateral Equipment Used large green SB Reps/Minutes 1x15 Comments reports feels it in his hips Standing Exercises chop Standing Exercise Name D2 flexion pattern & D1 extension pattern Side bilateral Resistance lvl 1 tb for mobility only Reps/Minutes 1x10 both dirctions ea side Comments cued for core stab, hand placement and form Manual Therapy Treatment Soft Tissue Mobilization Thoracic Spine Body Location R rhomboids, lat, teres, rotator cuff Mobilization Type Rolling,Sustained Pressure, Trigger Point Release Intensity/Depth Moderate Body Position Sidelying Comments Rolling and sustained pressure for pain reduction, trigger point release of R teres minor . Pt reports improvement in symptoms but continues to report stiffness in spine Cervical Spine Body Location B UT Mobilization Type Oscillations,Rolling,Sustained Pressure Intensity/Depth Moderate Body Position seated Comments Pt with stiffness B UT with sustained pressure, decreased with mobilization Joint Mobilizations TS Joint T1-T5 Direction P-A Grade III Body Position Prone Reps/Duration 4x30 Comments Most restricted with mobility at T3-4. Increased hypomobility along thoracic spine, improved slightly with mobilization, monitored for pain Scapulothoracic Joint bilateral Direction protraction/retraction Grade III Body Position Sidelying Reps/Duration 1x5 ea MWM, the contract-relax Comments First AROM with PT supported pt arm during protract/retract while mobilizing scapula into greater ROM. Then Mob with movement then contract-relax with scapular protraction/ retraction with serratus/ rhomboids with sustained pressure and strumming soft tissue mobilization at B rhomboids between reps. 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 LTG Duration 12 visits Seven Impairment compliance, function, strength Short Term Goal (STG) Pt will report compliance with HEP at least 3x/wk to maximize gains made during PT sessions. STG Duration 6 visits Half-Way Goal (LTG) Pt will report and maintain compliance with HEP at least 3x/wk to demonstrate independence and maintain gains after discharge. 05/23/23: Reports daily compliance with HEP, but did not perform since last session on 05/1904/22/23: Reports compliance with HEP 2-3x/wk LTG Duration 12 visits Progressing Six Impairment Function Impairment NDI 21/50 Short Term Goal (STG) Pt will improve NDI score by at least 7 points in order to demonstrate better tolerance for activity. STG Duration 6 visits NOT MET Half-Way Goal (LTG) Pt will improve NDI score to less than 25/50 in order to demonstrate better tolerance for activity. 05/23/23: 26/50 04/22/23: 27/50, an increase ( worse) score since IE LTG Duration 12 visits NOT MET; goal updated Five Impairment function Impairment Pt reports unable to lift more than 20# due to pain Short Term Goal (STG) Pt will be able to lift at least 25# with 2/10 or less neck/back pain to demo improved activity tolerance and to return to PLOF. 04/22/23: Able to lift 25# from floor and from elevated surface to mimic work environment with 2/10 pain; unable to increase resistance due to pain STG Duration 6 visits MET Half-Way Goal (LTG) Pt will be able to lift at least 40# (average windshield weight) without compensation to demo improved activity tolerance to return to PLOF. 05/23/23: Able to lift 35# from floor and from elevated surface to mimic work environment 04/22/23: Able to lift 25# from floor and from elevated surface to mimic work environment with 2/10 pain; unable to increase resistance due to pain LTG Duration 12 visits NOT MET; goal updated Assessment Summary Assessment Pt allowed to return to PT following improved blood pressure management, cleared by MD. Due to new blood pressure medications, pt has been unable to perform HEP or attend sessions. As a result, pt has regressed in activity and mobility. Prior to this appt, pt reports compliance with HEP but is unable to demonstrate exercises without prompting or due to recent onset of hip/back pain in last month. Emphasis on restoring cervical and thoracic mobility , followed by strengthening to restore correct movement patterns of periscapular muscles. During manual treatment, pt demos most restriction in upper-middle thoracic region, which is consistent with his reported pain symptoms. Initiated posterior-anterior mobilizations to improve mobility and for pain reduction. Pt reports reduction to 2/10 after mobilization and exercises. PT educated pt on returning to gentle exercise to improve overall mobility and decrease feeling of stiffness. PT and pt began discussion about continuing POC vs referral back for further pain management due to plateau in progress recently after several months of PT (IE in February 2023); at this time, PT recommending referral back to MD to address current condition in addition to low back and hip pain that is now present. He has follow up with Dr. Gomez on 07/10. Pt would continue to benefit from referral to work conditioning in future as appropriate in order to ensure pt able to perform all components of job. . Pt would benefit from skilled PT for pain symptom reduction and to improve mobility and strength. Physical Therapy Plan Frequency and Duration Frequency of Treatment 1-2x/wk Duration of treatment (weeks) 8 Plan of Care Start Date 05/23/23 Plan of Care End Date 07/19/23 Therapeutic Interventions Therapeutic Interventions Home Exercise Program,Joint Mobilizations,Manual Therapy, Neuromuscular Re-education, Patient/Caregiver Education, Self-Care/Home Management,Soft Tissue Mobilization, Therapeutic Activities, Therapeutic Exercises Modalities Cold Pack/Ice Massage,Electric Stimulation,Hot Packs, Iontophoresis,Ultrasound Next Visit Focus/Plan Next Note Type Progress Note Next Visit Plan PN next treatment, follow up with appt. Thoracic and cervical mobility, prone periscapular and trunk strengthening, mobilizations If tolerated: Emphasize power clean and increasing heart rate with activity (e.g. elliptical vs bike); Continue lifting and progress: over head lifting, upright row, lat pull down (progress), row ( progress), shoulder press ( progress), D1-D2 chop; continue serratus punch etc. Add bicep upper cut. Postural and lifting mechanics education for safety. Add squat + overhead lift, work simulation, STM; education on body mechanics Continue manual tx, rib mobilization prn
--- NOTE | 2023-07-13 12:30 | PT.OTN ---
Current Diagnoses Strain of muscle, fascia and tendon at neck level, subsequent encounter (07/13/23) Physical Therapy Treatment Note PT-OP-A Visit Information Start: 03/02/23 16:12 Freq: Status: Active Protocol: Document 07/13/23 09:05 NM (Rec: 07/13/23 10:25 NM [id number]) Out-Patient Physical Therapy Visit Information Visit Information Visit Type Progress Note Visit Start Time 09:02 Visit Stop Time 09:45 Visit Number 10/27 Evaluation Information Evaluation Date 03/02/23 PT-OP-B Current Condition Start: 03/02/23 16:12 Freq: Status: Active Protocol: Document 03/02/23 16:13 NM (Rec: 03/02/23 16:43 NM [id number]) Current Condition History of Current Condition Onset Date 01/19/23 Current Complaints neck and thoracic stiffness/ pain, muscle tightness, pressure in spine History of Current Condition Pt presents to clinic with cervical and thoracic pain beginning on 01/19/23 when pt was attempting set a windshield into a large car alone. He reports feeling something (cannot elaborate) in his R mid back when lifting the windshield and placing it in the car, but was not able to stop work due to a busy schedule. The next day his neck/back pain worsened and has not relented. The pain is most pronounced between his R scapula and spine, but he also has tenderness on the back of his head/neck. Symptoms also include neck/mid back stiffness along with tight muscles of the neck and between shoulder blades. He has been unable to work since 01/21/23. Pt had a previous shoulder surgery (biceps tendon/labrum repair) and had returned to work for about 6-7 months when the injury occurred. Treatment Goals Patient/Caregiver Goals Return to work, decrease pain Prior Functional Status Baseline Function- ADL's Independent Baseline Function- Mobility Independent Baseline Function- Work/School Able to perform most of job functions, has a trainee to help. He was completing a work conditioning program for prior shoulder surgery but did not complete program Current Functional Impairments (Reported) Functional Limitations- ADL's Able to perform ADLs with assistance due to pain Functional Limitations- Mobility/Gait Pain with movement (standing, walking) and sustained postures (sitting, standing) Functional Limitations- Work/School Currently unable to work due to pain PT-OP-C Subjective Start: 03/02/23 16:12 Freq: Status: Active Protocol: Document 07/13/23 09:05 NM (Rec: 07/13/23 10:25 NM [id number]) OP-PT Subjective Patient Comments Patient Comments Today, Mata reports 3/10 neck/ midthoracic pain, mostly stiffness. Has not been doing HEP; reports that he usually doesn't have pain during exercise but he does afterward and when sleeping. Continues to sleep poorly but improved due to CPAP. Pt saw Dr. Aguayo on 06/29- said can't do anymore for him, so going to try [facility] for occupational doctor instead. Dr. Gomez wanting to do trigger point therapy, which pt planning to start in a few weeks once approved. PT-OP-E Functional Tests Start: 03/02/23 16:12 Freq: Status: Active Protocol: Document 03/02/23 16:13 NM (Rec: 03/02/23 16:43 NM [id number]) Functional Tests Other Deep Neck Flexor Endurance Test Score 5 seconds (norm = 38 seconds) Comment Supine with neck in cervical retraction and neck flexion off table PT-OP-F Manual Assessment Start: 03/02/23 16:12 Freq: Status: Active Protocol: Document 03/02/23 16:13 NM (Rec: 03/02/23 16:43 NM [id number]) Manual Assessments Soft Tissue Assessment Soft Tissue Mobility Assessment Pt able to tolerate moderate intensity soft tissue assessment. Demos decreased soft tissue mobility of R upper trapezius, R SCM, B rhomboids, and B rotator cuff muscles. Joint Mobility Assessment Joint Mobility Assessment P-A springing of cervical and thoracic spinous processes have normal segmental mobility . Pt reports symptom relief with assessment. Decreased lower cervical spine mobility during L>R side glides, no pain or symptom provocation. Thoracic rib mobility and transverse process segmental mobility normal, as well; no pain or symptom provocation. PT-OP-G Mobility & Gait Start: 03/02/23 16:12 Freq: Status: Active Protocol: Document 03/02/23 16:13 NM (Rec: 03/02/23 16:43 NM [id number]) OP Gait Assessment Gait Gait Assistance Required: Independent PT-OP-H Neuro Start: 03/02/23 16:12 Freq: Status: Active Protocol: Document 03/02/23 16:13 NM (Rec: 03/02/23 16:43 NM [id number]) Sensation Evaluation Gross Sensation Gross Sensation WNL Comments Summary Comments Cervical, UE, thoracic dermatomes intact to light touch sensation bilaterally. PT-OP-J Posture/Palpation/Skin Start: 03/02/23 16:12 Freq: Status: Active Protocol: Document 03/02/23 16:13 NM (Rec: 03/02/23 16:43 NM [id number]) Posture Evaluation Position Standing Evaluation View Lateral Head/C-Spine Posture Forward Head T-Spine Posture Increased Kyphosis L-Spine Posture Decreased Lordosis Shoulder Posture (R) Elevated Scapula Posture (L) Elevated,(R) Elevated,(R) Tipped Arm Posture (L) Externally Rotated,(R) Externally Rotated Pelvis Posture Posterior Tilted Weight Distribution Balanced Hip Posture (L) Externally Rotated,(R) Externally Rotated Palpation Assessment Location Thoracic Spine Palpation Location Bilateral: Rhomboids, Mid- lower Trapezius, periscapular muscles Palpation Findings Soft Tissue Tightness,Muscle Guarding,Tenderness Palpation Details R Rhomboid more tender to palpation than L Cervical Spine Palpation Location Bilateral: suboccipitals, Upper trapezius, paraspinals, SCM, LS Palpation Findings Soft Tissue Tightness,Spasm, Muscle Guarding,Tenderness Palpation Details Spasm in B suboccipitals; tenderness in R upper trap/SCM - limiting mobility PT-OP-K Range of Motion Start: 03/02/23 16:12 Freq: Status: Active Protocol: Document 07/13/23 09:05 NM (Rec: 07/13/23 10:25 NM [id number]) Cervical Spine Range of Motion Cervical Spine Active Degrees Flexion 50 Extension 45 Rotation Left 90 Rotation Right 90 Lateral Flexion Left 30 Lateral Flexion Right 30 Comments Thoracic Spine flex: 60 deg ext: 20 deg B lateral flex: 25 deg L rotation: 10 cm R rotation: 10 cm 07/07/23: 45 deg flex, 40 deg ext, 35 deg L SB, 30 deg R SB, 65 deg L rot, 50 R rot TS rotation L 4 cm, 5 cm R rot 07/13/23: Cervical spine flexion 50 deg, ext 45 deg, L rot 75 deg, R rot 65 deg, R SB 25 deg, L SB 45 deg Thoracic spine flexion 60 deg, extension 25 deg, B SB 25 deg , R rot 9 cm, L rot 8 cm PT-OP-L Special Tests Start: 03/02/23 16:12 Freq: Status: Active Protocol: Document 03/02/23 16:13 NM (Rec: 03/02/23 16:43 NM [id number]) Special Tests Cervical Spine Special Tests Transverse Ligament Test Results negative Comments no excessive motion Alar Ligament Test Results negative Comments no excessive motion in B lateral flexion or rotation Traction Test Results positive Comments relieves symptoms PT-OP-M Strength Start: 03/02/23 16:12 Freq: Status: Active Protocol: Document 07/13/23 09:05 NM (Rec: 07/13/23 10:25 NM [id number]) Cervical Spine Strength Cervical Spine Manual Muscle Testing Flexion (C1-2) 4+ Good+ Extension 4+ Good+ Rotation Left 4+ Good+ Rotation Right 4+ Good+ Lateral Flexion Left (C3) 4+ Good+ Lateral Flexion Right (C3) 4+ Good+ Comments 07/13/23, 07/07/23: 4+/5 for all , pain free Trunk Strength Trunk Manual Muscle Testing Flexion 4 Good Extension 4+ Good+ Rotation Left 4+ Good+ Rotation Right 4+ Good+ Lateral Flexion Left 4+ Good+ Lateral Flexion Right 4+ Good+ Comments 07/13/23, 07/07/23: 4+/5 for all , pain free PT-OP-Q Treatments Start: 03/04/23 15:33 Freq: Status: Active Protocol: Document 07/13/23 09:05 NM (Rec: 07/13/23 10:25 NM [id number]) Gym Equipment Cable Column (Body Solid) Row Details mid row; pain free, cued for shldr depression, no trunk over ext Resistance 20# Reps/Time 2x12 Therapeutic Exercises Supine Exercises Thoracic ext Supine Exercise Name in sitting Side bilateral Reps/Minutes 1x5 Comments pain free but limited motion, good stretch Prone Exercises quadruped Prone Exercise Name 1. cervical spine AROM all directions, 2. thread needle Side bilateral Reps/Minutes 1. 1x5 ea direction, 2. 1x5 Comments cued full rotation; pain free but stiff Scap retract/chin tuck Prone Exercise Name quadruped Side bilateral Reps/Minutes 10x5 Comments cues to stay in pain free range IYT's Prone Exercise Name I, T with ER, W, Y Side bilateral Resistance 2# db Reps/Minutes 2x10 Comments improved scapular control; pain free Sitting Exercises Crossed arm stretch Sitting Exercise Name stretching supraspinatus, RTC, post shldr capsule/rhomboid for pain relief Side bilateral Reps/Minutes 1x60 ea Standing Exercises squat<> stand OH lift Standing Exercise Name for goal Side bilateral Resistance 20# Reps/Minutes 2x8 Comments cued staggered stance with reach to prevent trunk comp, decrease shldr pain Manual Therapy Treatment Soft Tissue Mobilization Thoracic Spine Body Location B rhomboids, lat, teres, rotator cuff Mobilization Type Myofascial Release,Rolling, Sustained Pressure Intensity/Depth Moderate Body Position Sidelying Comments Rolling and sustained pressure for pain reduction, myofascial release of R rhomboid with mobilization/ movement into protraction/ retraction. Pt reports improvement in symptoms, less stiffness. L less restricted than r Cervical Spine Body Location B UT/LS/SCM, R paraspinals ( lower CS) Mobilization Type Rolling,Sustained Pressure Intensity/Depth Moderate Body Position Supine Comments Stiffness bilaterally and soft tissue restrictions R UT/SCM/ LS limited neck ROM. Reports increased tenderness along R side at mid-lower cervical spine, improved post mobilization with rolling. No trigger points today Joint Mobilizations C spine Direction sideglides R>L Grade III Body Position Supine Reps/Duration 1x15 ea Comments Oscillatory grade III glides to improve ROM and manage pain levels at C3-C7. Pt feels most restriction at R mid- cervical; however, demos decreased glide mobility toward L facets. 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 No significant restrictions at T3-4 spine like last session Scapulothoracic Joint bilateral Direction protraction/retraction, upwd/ dwd rotation Grade III Body Position Sidelying Reps/Duration 1x10 ea MWM Comments PT supporting arm then AAROM then AROM into protract/ retract and upward/downward rotation during MWM. Pain free but limited scapular retraction/protraction Manual Traction Cervical Spine Body Position Hooklying Reps/Duration 2x15 Comments Pt reports relief and gentle stretch of neck extensors, posterior capsule. Performed with suboccipital release PT-OP-T Assessment and Plan Start: 03/02/23 16:12 Freq: Status: Active Protocol: Document 07/13/23 09:05 NM (Rec: 07/13/23 10:25 NM [id number]) Physical Therapy Assessment Goals Nine Impairment function, strength, activity Impairment Pt unable to work Paleologist Goal (LTG) Pt will be able to participate in work or work conditioning program if appropriate. LTG Duration 12 visits Seven Impairment compliance, function, strength Short Term Goal (STG) Pt will report compliance with HEP at least 3x/wk to maximize gains made during PT sessions. STG Duration 6 visits Paleologist Goal (LTG) Pt will report and maintain compliance with HEP at least 3x/wk to demonstrate independence and maintain gains after discharge. 07/13/23: Pt did not perform HEP since 06/16 due to blood pressure, pain in hip/back/ stiffness 05/23/23: Reports daily compliance with HEP, but did not perform since last session on 05/1904/22/23: Reports compliance with HEP 2-3x/wk LTG Duration 12 visits NOT MET Six Impairment Function Impairment NDI 21/50 Short Term Goal (STG) Pt will improve NDI score by at least 7 points in order to demonstrate better tolerance for activity. STG Duration 6 visits NOT MET [facility] Goal (LTG) Pt will improve NDI score to less than 25/50 in order to demonstrate better tolerance for activity. 05/23/23: 26/50 04/22/23: 27/50, an increase ( worse) score since IE 07/13/23: 21/50 LTG Duration 12 visits goal updated and MET Five Impairment function Impairment Pt reports unable to lift more than 20# due to pain Short Term Goal (STG) Pt will be able to lift at least 25# with 2/10 or less neck/back pain to demo improved activity tolerance and to return to PLOF. 04/22/23: Able to lift 25# from floor and from elevated surface to mimic work environment with 2/10 pain; unable to increase resistance due to pain STG Duration 6 visits MET Paleologist Goal (LTG) Pt will be able to lift at least 40# (average windshield weight) without compensation to demo improved activity tolerance to return to PLOF. 07/13/23: Pt unable to lift >20 -35# from floor or elevated surface without increased midthoracic & shoulder pain or compensations 05/23/23: Able to lift 35# from floor and from elevated surface to mimic work environment 04/22/23: Able to lift 25# from floor and from elevated surface to mimic work environment with 2/10 pain; unable to increase resistance due to pain LTG Duration 12 visits NOT MET; goal updated Assessment Summary Assessment Pt tolerated session well, beginning with pain levels 3/ 10 and reduced to 2/10 at end of session. Pt only reports pain with lifting 20# box from low height then overhead. Verbally cued for improved body mechanics using hip hinge and core activation, preventing thoracolumbar overextension, and for staggered stance when lifting overhead for improved spine support. Manual treatment dedicated to reducing pt stiffness and improving mobility across the spine. Continued with P-A mobilizations of thoracic spine and scapulothoracic mechanics with pt activating periscapular muscles. Pt pain free in gravity minimized position. Progressed to resisted periscapular strengthening to facilitate strength within pt's available range. Physical Therapy Plan Frequency and Duration Frequency of Treatment 1-2x/wk Duration of treatment (weeks) 8 Plan of Care Start Date 05/23/23 Plan of Care End Date 07/19/23 Therapeutic Interventions Therapeutic Interventions Home Exercise Program,Joint Mobilizations,Manual Therapy, Neuromuscular Re-education, Patient/Caregiver Education, Self-Care/Home Management,Soft Tissue Mobilization, Therapeutic Activities, Therapeutic Exercises Modalities Cold Pack/Ice Massage,Electric Stimulation,Hot Packs, Iontophoresis,Ultrasound Discharge Physical Therapy Discharge Reasons Plateau in Progress Discharge Comments Refer back to physician for pain management and further evaluation, lack of progression Next Visit Focus/Plan Next Visit Plan Discharge from PT services
--- NOTE | 2023-07-13 12:32 | PT.OPDS ---
Current Diagnoses Strain of muscle, fascia and tendon at neck level, subsequent encounter (07/13/23) Visit Care Team Role Provider Type Casper Amaro PA-C Primary Care Provider Non-Staff Specialty: Medical Address: [address] [place] [address], [id number] Email: Tylor Aguayo MD Attending Provider Non-Staff Referring Provider Specialty: Physical Medicine and Rehab Address: [address] [place], [address] Email: Visit Number Visit Number 10/[id number] Discharge Summary PT-OP-B Current Condition Start: 03/02/23 16:12 Freq: Status: Active Protocol: Document 03/02/23 16:13 NM (Rec: 03/02/23 16:43 NM [id number]) Current Condition History of Current Condition Onset Date 01/19/23 Current Complaints neck and thoracic stiffness/ pain, muscle tightness, pressure in spine History of Current Condition Pt presents to clinic with cervical and thoracic pain beginning on 01/19/23 when pt was attempting set a windshield into a large car alone. He reports feeling something (cannot elaborate) in his R mid back when lifting the windshield and placing it in the car, but was not able to stop work due to a busy schedule. The next day his neck/back pain worsened and has not relented. The pain is most pronounced between his R scapula and spine, but he also has tenderness on the back of his head/neck. Symptoms also include neck/mid back stiffness along with tight muscles of the neck and between shoulder blades. He has been unable to work since 01/21/23. Pt had a previous shoulder surgery (biceps tendon/labrum repair) and had returned to work for about 6-7 months when the injury occurred. Treatment Goals Patient/Caregiver Goals Return to work, decrease pain Prior Functional Status Baseline Function- ADL's Independent Baseline Function- Mobility Independent Baseline Function- Work/School Able to perform most of job functions, has a trainee to help. He was completing a work conditioning program for prior shoulder surgery but did not complete program Current Functional Impairments (Reported) Functional Limitations- ADL's Able to perform ADLs with assistance due to pain Functional Limitations- Mobility/Gait Pain with movement (standing, walking) and sustained postures (sitting, standing) Functional Limitations- Work/School Currently unable to work due to pain PT-OP-C Subjective Start: 03/02/23 16:12 Freq: Status: Active Protocol: Document 07/13/23 09:05 NM (Rec: 07/13/23 10:25 NM [id number]) OP-PT Subjective Patient Comments Patient Comments Today, Mata reports 3/10 neck/ midthoracic pain, mostly stiffness. Has not been doing HEP; reports that he usually doesn't have pain during exercise but he does afterward and when sleeping. Continues to sleep poorly but improved due to CPAP. Pt saw Dr. Aguayo on 06/29- said can't do anymore for him, so going to try [facility] for occupational doctor instead. Dr. Gomez wanting to do trigger point therapy, which pt planning to start in a few weeks once approved. PT-OP-E Functional Tests Start: 03/02/23 16:12 Freq: Status: Active Protocol: Document 03/02/23 16:13 NM (Rec: 03/02/23 16:43 NM [id number]) Functional Tests Other Deep Neck Flexor Endurance Test Score 5 seconds (norm = 38 seconds) Comment Supine with neck in cervical retraction and neck flexion off table PT-OP-F Manual Assessment Start: 03/02/23 16:12 Freq: Status: Active Protocol: Document 03/02/23 16:13 NM (Rec: 03/02/23 16:43 NM [id number]) Manual Assessments Soft Tissue Assessment Soft Tissue Mobility Assessment Pt able to tolerate moderate intensity soft tissue assessment. Demos decreased soft tissue mobility of R upper trapezius, R SCM, B rhomboids, and B rotator cuff muscles. Joint Mobility Assessment Joint Mobility Assessment P-A springing of cervical and thoracic spinous processes have normal segmental mobility . Pt reports symptom relief with assessment. Decreased lower cervical spine mobility during L>R side glides, no pain or symptom provocation. Thoracic rib mobility and transverse process segmental mobility normal, as well; no pain or symptom provocation. PT-OP-G Mobility & Gait Start: 03/02/23 16:12 Freq: Status: Active Protocol: Document 03/02/23 16:13 NM (Rec: 03/02/23 16:43 NM [id number]) OP Gait Assessment Gait Gait Assistance Required: Independent PT-OP-H Neuro Start: 03/02/23 16:12 Freq: Status: Active Protocol: Document 03/02/23 16:13 NM (Rec: 03/02/23 16:43 NM [id number]) Sensation Evaluation Gross Sensation Gross Sensation WNL Comments Summary Comments Cervical, UE, thoracic dermatomes intact to light touch sensation bilaterally. PT-OP-J Posture/Palpation/Skin Start: 03/02/23 16:12 Freq: Status: Active Protocol: Document 03/02/23 16:13 NM (Rec: 03/02/23 16:43 NM [id number]) Posture Evaluation Position Standing Evaluation View Lateral Head/C-Spine Posture Forward Head T-Spine Posture Increased Kyphosis L-Spine Posture Decreased Lordosis Shoulder Posture (R) Elevated Scapula Posture (L) Elevated,(R) Elevated,(R) Tipped Arm Posture (L) Externally Rotated,(R) Externally Rotated Pelvis Posture Posterior Tilted Weight Distribution Balanced Hip Posture (L) Externally Rotated,(R) Externally Rotated Palpation Assessment Location Thoracic Spine Palpation Location Bilateral: Rhomboids, Mid- lower Trapezius, periscapular muscles Palpation Findings Soft Tissue Tightness,Muscle Guarding,Tenderness Palpation Details R Rhomboid more tender to palpation than L Cervical Spine Palpation Location Bilateral: suboccipitals, Upper trapezius, paraspinals, SCM, LS Palpation Findings Soft Tissue Tightness,Spasm, Muscle Guarding,Tenderness Palpation Details Spasm in B suboccipitals; tenderness in R upper trap/SCM - limiting mobility PT-OP-K Range of Motion Start: 03/02/23 16:12 Freq: Status: Active Protocol: Document 07/13/23 09:05 NM (Rec: 07/13/23 10:25 NM [id number]) Cervical Spine Range of Motion Cervical Spine Active Degrees Flexion 50 Extension 45 Rotation Left 90 Rotation Right 90 Lateral Flexion Left 30 Lateral Flexion Right 30 Comments Thoracic Spine flex: 60 deg ext: 20 deg B lateral flex: 25 deg L rotation: 10 cm R rotation: 10 cm 07/07/23: 45 deg flex, 40 deg ext, 35 deg L SB, 30 deg R SB, 65 deg L rot, 50 R rot TS rotation L 4 cm, 5 cm R rot 07/13/23: Cervical spine flexion 50 deg, ext 45 deg, L rot 75 deg, R rot 65 deg, R SB 25 deg, L SB 45 deg Thoracic spine flexion 60 deg, extension 25 deg, B SB 25 deg , R rot 9 cm, L rot 8 cm PT-OP-L Special Tests Start: 03/02/23 16:12 Freq: Status: Active Protocol: Document 03/02/23 16:13 NM (Rec: 03/02/23 16:43 NM [id number]) Special Tests Cervical Spine Special Tests Transverse Ligament Test Results negative Comments no excessive motion Alar Ligament Test Results negative Comments no excessive motion in B lateral flexion or rotation Traction Test Results positive Comments relieves symptoms PT-OP-M Strength Start: 03/02/23 16:12 Freq: Status: Active Protocol: Document 07/13/23 09:05 NM (Rec: 07/13/23 10:25 NM [id number]) Cervical Spine Strength Cervical Spine Manual Muscle Testing Flexion (C1-2) 4+ Good+ Extension 4+ Good+ Rotation Left 4+ Good+ Rotation Right 4+ Good+ Lateral Flexion Left (C3) 4+ Good+ Lateral Flexion Right (C3) 4+ Good+ Comments 07/13/23, 07/07/23: 4+/5 for all , pain free Trunk Strength Trunk Manual Muscle Testing Flexion 4 Good Extension 4+ Good+ Rotation Left 4+ Good+ Rotation Right 4+ Good+ Lateral Flexion Left 4+ Good+ Lateral Flexion Right 4+ Good+ Comments 07/13/23, 07/07/23: 4+/5 for all , pain free PT-OP-T Assessment and Plan Start: 03/02/23 16:12 Freq: Status: Active Protocol: Document 07/13/23 09:05 NM (Rec: 07/13/23 10:25 NM [id number]) Physical Therapy Assessment Goals Nine Impairment function, strength, activity Impairment Pt unable to work [employer] Goal (LTG) Pt will be able to participate in work or work conditioning program if appropriate. LTG Duration 12 visits Seven Impairment compliance, function, strength Short Term Goal (STG) Pt will report compliance with HEP at least 3x/wk to maximize gains made during PT sessions. 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 07/13/23: Pt did not perform HEP since 06/16 due to blood pressure, pain in hip/back/ stiffness 05/23/23: Reports daily compliance with HEP, but did not perform since last session on 05/1904/22/23: Reports compliance with HEP 2-3x/wk LTG Duration 12 visits NOT MET Six Impairment Function Impairment NDI 21/50 Short Term Goal (STG) Pt will improve NDI score by at least 7 points in order to demonstrate better tolerance for activity. STG Duration 6 visits NOT MET [employer] Goal (LTG) Pt will improve NDI score to less than 25/50 in order to demonstrate better tolerance for activity. 05/23/23: 50 04/22/23: , an increase ( worse) score since IE 07/13/23: 2150 LTG Duration 12 visits goal updated and MET Five Impairment function Impairment Pt reports unable to lift more than 20# due to pain Short Term Goal (STG) Pt will be able to lift at least 25# with 2/10 or less neck/back pain to demo improved activity tolerance and to return to PLOF. 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 07/13/23: Pt unable to lift >20 -35# from floor or elevated surface without increased midthoracic & shoulder pain or compensations 05/23/23: Able to lift 35# from floor and from elevated surface to mimic work environment 04/22/23: Able to lift 25# from floor and from elevated surface to mimic work environment with 2/10 pain; unable to increase resistance due to pain LTG Duration 12 visits NOT MET; goal updated Progress Towards Goals Progress Comments Oswestry goal met 07/13/23. No other progress toward goals since May 2023 Assessment Summary Assessment Pt has been seen x18 visits since IE in February 2023 for midthoracic and cervical spine pain related to work injury in January 2023. Pt achieved full cervical/thoracic spine ROM and strength. However, pt has had several cancellations since IE related to weather and illness in addition to only 2 sessions in June due to needing medical clearance due to blood pressure. Pt was progressing well toward goals, but pt has not made any further progress toward functional goals since early May 2023. He recently met his NDI goal, scoring 21/50 points which is equivalent to his original pain levels at evaluation. He has had poor compliance with HEP, evidenced by inability to replicate exercises in session when asked or by admission. Per pt, he needs to be able to lift at least 45# in order to return to work; however, lifting >20-35# leads to increased back/shoulder pain and compensations, despite cueing for body mechanics or with modifications. At this time, pt has reached max progression with PT. He reports pain not only in his neck/mid-back, but also in his shoulder, hip, and low back, which limit his ability to participate in PT and ADLs. He would benefit from returning to referring provider in order to better manage his pain and for further work up regarding symptoms. Additionally, pt would benefit from work conditioning in order to be able to return to work when appropriate. Physical Therapy Plan Frequency and Duration Frequency of Treatment 1-2x/wk Duration of treatment (weeks) 8 Plan of Care Start Date 05/23/23 Plan of Care End Date 07/19/23 Therapeutic Interventions Therapeutic Interventions Home Exercise Program,Joint Mobilizations,Manual Therapy, Neuromuscular Re-education, Patient/Caregiver Education, Self-Care/Home Management,Soft Tissue Mobilization, Therapeutic Activities, Therapeutic Exercises Modalities Cold Pack/Ice Massage,Electric Stimulation,Hot Packs, Iontophoresis,Ultrasound Discharge Physical Therapy Discharge Reasons Plateau in Progress Discharge Comments Refer back to physician for pain management and further evaluation, lack of progression Next Visit Focus/Plan Next Visit Plan Discharge from PT services
== END 2023-07-20 13:56 ==
LOC: PHYS 09:00
PROVIDERS: PCP Physician Assistant Medical; Referring Provider Preventive Medicine Public Health & General Preventive Medicine; Visit Provider Preventive Medicine Public Health & General Preventive Medicine
DX: S16.1XXD Strain of muscle, fascia and tendon at neck level, subsequent encounter (principal)
CPT/HCPCS: 97110; 97112; 97140; 97162; 97530